=== PATIENT | female | born 1960 | race Caucasian/White ===

== ENCOUNTER 2024-10-31 14:56 | Emergency (ER) | payer MEDICARE, SELFPAY ==
[2024-10-31 14:56] VITALS: BP 137/73; PULSE 53; RESP 18; TEMP 36.6; O2SAT 100
[2024-10-31 14:58] VITALS: BP 137/73; PULSE 53; RESP 20; TEMP 36.7; O2SAT 100
--- NOTE | 2024-10-31 15:00 | PC.NURSE ---
PATIENT AMBULATED TO THE BATHROOM FOR URINE SAMPLE. AMBULATED WITHOUT DIFFICULTY. PATIENT REPORTS THAT THE ZOFRAN GIVEN TO HER BY EMS IS HELPING
--- NOTE | 2024-10-31 15:11 | PC.NURSE ---
DR BONILLA AT THE BEDSIDE
--- NOTE | 2024-10-31 15:16 | ED_ITS ---
HPI - General Adult General Chief complaint: Abdominal Pain Stated complaint: Abdominal Pain Time Seen by Provider: 10/31/24 15:02 History of Present Illness HPI narrative: Tonya is a 63F with a PMH of afib that presented to the ED with abdominal pain and cramping. It started 1.5 hours ago. She had several episodes of abdominal cramping and watery diarrhea and dry heaving. No CP or dyspnea. Related Data Home Medications ?Medication ?Instructions ?Recorded ?Confirmed ?Last Taken ?Type metoprolol tartrate 50 mg tablet 50 mg PO BID 10/31/24 10/31/24 Unknown History (Lopressor) Allergies Allergy/AdvReac Type Severity Reaction Status Date / Time Penicillins Allergy Intermediate Rash Verified 10/31/24 14:58 Review of Systems 2 Review of Systems: All systems reviewed & are unremarkable except as noted in HPI and below Exam 2 Const: General: cooperative, healthy appearing, comfortable, no acute distress, well developed, alert, awake and Physically active O rientation/consciousness: oriented to person, oriented to place and oriented to time HENMT: Head: normal to inspection, normocephalic and atraumatic Ears: h earing grossly normal bilaterally and external ears normal Face/Nose/Sinus: N ormal external nose present Eyes: General: appearance normal, both eyes and all related structures P eriorbital: periorbital findings normal Sclera: sclerae normal Pupils: E qual, round and reactive pupils present Neck: Neck: normal visual inspection Chest: Chest palpation & inspection: normal inspection of the chest Resp: Effort & Inspection: normal respiratory effort, able to speak in complete sentences and no respiratory distress Auscultation: clear to auscultation bilaterally Cardio: Jugular venous distension: no JVD Rate: regular rate Rhythm: r egular rhythm GI: Inspection: normal to inspection GI Palp: Yes Soft to palpation A uscultation: normal bowel sounds Skin: General skin exam: normal color and no rashes or lesions noted Neuro: General: oriented to person, oriented to place and oriented to time Cranial nerves: Yes Equal, round and reactive pupils present Extrem: General: normal to inspection Course Course Emergency Course: Labs largely unremarkable. Symptoms improved with fluids and dicyclomine as well as the zofran she was given en route. Vital Signs Vital signs: Vital Signs Temperature 97.9 F 10/31/24 14:56 Pulse Rate 53 L 10/31/24 14:56 Respiratory Rate 18 10/31/24 14:56 Blood Pressure 137/73 10/31/24 14:56 Pulse Oximetry 100 10/31/24 14:56 Oxygen Delivery Room Air 10/31/24 14:56 Temperature 98.0 F 10/31/24 14:58 Pulse Rate 53 L 10/31/24 14:58 Respiratory Rate 20 10/31/24 14:58 Blood Pressure 137/73 10/31/24 14:58 Pulse Oximetry 100 10/31/24 14:58 Oxygen Delivery Room Air 10/31/24 14:56 Medical Decision Making Vital Signs Vital Signs: Vital Signs Temperature 97.9 F 10/31/24 14:56 Pulse Rate 53 L 10/31/24 14:56 Respiratory Rate 18 10/31/24 14:56 Blood Pressure 137/73 10/31/24 14:56 Pulse Oximetry 100 10/31/24 14:56 Oxygen Delivery Room Air 10/31/24 14:56 Temperature 98.0 F 10/31/24 14:58 Pulse Rate 53 L 10/31/24 14:58 Respiratory Rate 20 10/31/24 14:58 Blood Pressure 137/73 10/31/24 14:58 Pulse Oximetry 10/31/24 14:58 Oxygen Delivery Room Air 10/31/24 14:56 Lab Data 10/31/24 15:13 10/31/24 15:13 Labs: Lab Results 10/31/24 10/31/24 Range/Units 15:13 15:58 WBC 9.1 (4.8-10.8) K/mm3 RBC 3.94 L (4.20-5.40) M/mm3 Hgb 12.0 (11.7-13.8) g/dL Hct 37.1 (35.0-42.0) % MCV 94.2 (78.0-102.0) fL MCH 30.5 (27.0-31.0) pg MCHC 32.3 (32-36) g/dL RDW 13.4 (11.6-14.4) % Plt Count 242 (150-420) K/mm3 MPV 10.9 (9.2-11.8) fl Immature Gran % (Auto) 0.3 H (0.0-0.0) % Neut % (Auto) 80.4 H (50.0-70.0) % Lymph % (Auto) 11.7 L (18.0-42.0) % [place] % (Auto) 6.0 (2.0-11.0) % Eos % (Auto) 1.0 (1.0-6.0) % Baso % (Auto) 0.6 (0.0-1.0) % Lymph # (Auto) 1.06 L (1.10-4.50) K/mm3 [place] # (Auto) 0.54 (0.10-0.90) K/mm3 Eos # (Auto) 0.09 (0.02-0.50) K/mm3 Baso # (Auto) 0.05 (0.00-0.10) K/mm3 Abs Immat Gran (auto) 0.03 H (0.00-0.00) K/mm3 Absolute Neuts (auto) 7.28 H (1.70-7.20) K/mm3 Absolute Nucleated RBC 0.00 (0.00-0.00) K/mm3 Nucleated RBC % 0.0 (0-0.0) % PT 14.6 H (9.50-12.1) Seconds INR 1.4 Sodium 143 (136-145) mmol/L Potassium 4.2 (3.5-5.1) mmol/L Chloride 104 (98-108) mmol/L Carbon Dioxide 29 (21-32) mmol/L Anion Gap 10 (4-12) mmol/L BUN 11 (7-18) mg/dL Creatinine 0.77 (0.55-1.02) mg/dL Estim Creat Clear Calc 59 ml/min Estimated GFR > 60 (59 - ) Glucose 110 H (70-99) mg/dL Calculated Osmolality 296 H (285-295) mOsm/kg Lactic Acid 1.0 (0.4-2.0) mmol/L Calcium 9.3 (8.5-10.1) mg/dL Total Bilirubin 0.6 (0.00-1.00) mg/dL AST 19 (15-37) U/L ALT 25 (14-59) U/L Alkaline Phosphatase 60 (46-116) U/L C-Reactive Protein < 0.5 (0.0-0.9) mg/dL Total Protein 6.9 (6.4-8.2) g/dL Albumin 3.9 (3.4-5.0) g/dL Lipase 49 (16-77) U/L Urine Color Dark yellow (Yellow) Urine Appearance Cloudy A (Clear) Urine pH 7.5 (5.0-8.0) Ur Specific [place] 1.015 (1.010-1.020) Urine Protein Trace H (Negative) Urine Glucose (UA) Negative (Negative) Urine Ketones Trace H (Negative) Ur Blood (Man) 1+ H (Negative) Urine Nitrate Negative (Negative) Urine Bilirubin 1+ H (Negative) Urine Urobilinogen 1.0 (0.2-1.0) mg/dL Leukocyte Esterase Rfl Trace H (Negative) YONATHAN/UL Urine RBC 3-5 H (0-2) /hpf Urine WBC 0-3 (0-3) /hpf Ur Squamous Epith Cells Moderate H (Few) /hpf Amorphous Sediment Moderate H (None) Urine Bacteria 4+ H (None) /hpf Urine Mucus Moderate H /lpf C. difficile (PCR) Negative (NEGATIVE) Discharge Plan Discharge Clinical Impression: Gastroenteritis Patient Disposition: Home, Self-Care Condition: Stable Instructions: Acute Nausea and Vomiting (ED) Patient Language: Romansh Prescriptions: New dicyclomine 20 mg tablet 20 mg PO BID PRN (Reason: abdominal pain) Qty: 20 0RF ondansetron 4 mg tablet,disintegrating 4 mg PO Q8H PRN (Reason: nausea and vomiting) Qty: 20 0RF diphenoxylate-atropine [Lomotil] 2.5-0.025 mg tablet 1 tablet PO TID Qty: 20 0RF ondansetron HCl 4 mg tablet 4 mg PO Q8H Qty: 20 0RF dicyclomine 20 mg tablet 20 mg PO BID Qty: 20 0RF diphenoxylate-atropine [Lomotil] 2.5-0.025 mg tablet 1 tablet PO TID Qty: 20 0RF No Action metoprolol tartrate [Lopressor] 50 mg tablet 50 mg PO BID Follow-up/Referrals: UNKNOWN,DOCTOR [Primary Care Provider] -
[2024-10-31] MEDS: DICYCLOMINE HCL INJ 20 MG/2 ML VIAL IM (15:30)
[2024-10-31] MEDS: SODIUM CHLORIDE 0.9% IV 1,000 ML 999 ML IV CONT (15:30)
[2024-10-31 15:35] LABS: Add Urine Microscopic? YES; Bilirubin Urine 1+ (Negative); Blood Urine 1+ (Negative); Color Urine Dark Yellow (Yellow); Glucose Urine UA Negative (Negative); Ketones Urine Trace (Negative); Leukocyte Esterase Ur Trace LEU/UL (Negative); Nitrate Urine Negative (Negative); Protein Urine Trace (Negative); Specific Grav Ur 1.015 (1.010-1.020); pH Urine 7.5 (5.0-8.0)
[2024-10-31 15:41] LABS: Basophils Absolute Auto 0.05 K/mm3 (0.00-0.10); Basophils Percent Auto 0.6 % (0.0-1.0); Eosinophils Absolute Auto 0.09 K/mm3 (0.02-0.50); Hematocrit 37.1 % (35.0-42.0); Immature Granulocyte Absolute 0.03 K/mm3 (0.00-0.00); Immature Granulocyte Percent A 0.3 % (0.0-0.0); Lymphocytes Absolute Auto 1.06 K/mm3 (1.10-4.50); Lymphocytes Percent Auto 11.7 % (18.0-42.0); Mean Corpuscular HGB Conc 32.3 g/dL (32-36); Mean Corpuscular Hemoglobin 30.5 pg (27.0-31.0); Mean Corpuscular Volume 94.2 fL (78.0-102.0); Mean Platelet Volume 10.9 fl (9.2-11.8); Monocytes Absolute Auto 0.54 K/mm3 (0.10-0.90); Neutrophils Absolute Auto 7.28 K/mm3 (1.70-7.20); Neutrophils Percent Auto 80.4 % (50.0-70.0); Platelet Count Result 242 K/mm3 (150-420); Red Blood Count 3.94 M/mm3 (4.20-5.40); Red Cell Distribution Width 13.4 % (11.6-14.4); White Blood Count 9.1 K/mm3 (4.8-10.8)
[2024-10-31 15:47] LABS: Appearance Urine Cloudy (Clear); Squamous Epithelial Cell Urine Moderate /hpf (Few); WBC Urine 0-3 /hpf (0-3)
[2024-10-31 15:48] LABS: Amorphous Sediment Urine Moderate; Bacteria Urine 4+ /hpf; INR 1.4; Mucus Urine Moderate /lpf; Prothrombin Time 14.6 Seconds (9.50-12.1)
[2024-10-31 15:50] LABS: Alanine Aminotransferase 25 U/L (14-59); Albumin Level 3.9 g/dL (3.4-5.0); Alkaline Phosphatase 60 U/L (46-116); Anion Gap 10 mmol/L (4-12); Aspartate Amino Transferase 19 U/L (15-37); Bilirubin,Total 0.6 mg/dL (0.00-1.00); Blood Urea Nitrogen 11 mg/dL (7-18); Calcium 9.3 mg/dL (8.5-10.1); Carbon Dioxide 29 mmol/L (21-32); Chloride 104 mmol/L (98-108); Estimated CRCL calculation 59 ml/min; Estimated Glomerular Filt Rate > 60; Glucose 110 mg/dL (70-99); Lipase 49 U/L (16-77); Osmolality Calculated 296 mOsm/kg (285-295); Potassium 4.2 mmol/L (3.5-5.1); Sodium 143 mmol/L (136-145); Total Protein 6.9 g/dL (6.4-8.2)
[2024-10-31 15:51] LABS: CRP < 0.5 mg/dL (0.0-0.9)
--- NOTE | 2024-10-31 15:58 | PC.NURSE ---
STOOL SAMPLE TAKEN TO LAB BY KRISTINA WAGNER
--- NOTE | 2024-10-31 16:39 | PC.NURSE ---
PATIENT REPORTS THAT HER PAIN IS GETTING BETTER. UPDATED PATIENT THAT LAB WORK WAS ALL BACK MINUS THE STOOL SAMPLE RESULTS. PATIENT AND DAUGHTER VERBALIZED UNDERSTANDING
[2024-10-31 17:26] LABS: Toxigenic C. Diff NEGATIVE (NEGATIVE)
[2024-10-31 17:40] VITALS: BP 141/75; PULSE 61; RESP 18; TEMP 36.6; O2SAT 99
--- NOTE | 2024-11-04 14:51 | PC.NURSE ---
FINAL SHIGA TOXINS RFLX ECOLI RESULTS: NOT DETECTED FINAL CAMPYLOBACTER EIA RESULTS: NOT DETECTED SALMONELLA/SHIGELLA CULTURE IS STILL PENDING.
--- NOTE | 2024-11-05 13:06 | PC.NURSE ---
FINAL STOOL CULTURE REPORT; SHIGA TOXINS RFLX ECOLI- NOT DETECTED SALMONELLA/SHIGELLA CULTURE- NOT DETECTED CAMPYLOBACTER EIA- NOT DETECTED.
--- OUTSIDE RECORDS SUMMARY | 2024-11-07 06:58 | XMS_ITS ---
Author Organization [facility] Address [address] [id number] Care Team Providers Care Acreage Reporter Name Role Phone SONG HERRERA [phone] Allergies Allergen (clinical drug ingredient) Drug/Non Drug Allergy documented on EMR Reaction Allergy Type Onset Date Status penicillamine Penicillamine Unknown Drug Allergy Active Results Component Value Reference Range Notes THINPREP PAP WITH GEAR NICKER Reviewed date:12/29/2023 12:02:12 PM Interpretation:Negative Performing Lab:[facility], [address] [place] [address], [place], [address] Notes/Report: NOTE: This high risk HPV mRNA assay detects fourteen high-risk HPV types (16, 18, 31, 33, 35, 39, 45, 51, 52, 56, 58, 59, 66, 68) without differentiation. This specimen was reviewed by a Driver Material Handler and/or Pathologist (as indicated in this report) after evaluation using the Thinprep Imaging System. LAST MENSTRUAL PERIOD NOT GIVEN SPECIMEN SOURCE Screening Pap - Imaged, Cervix STATEMENT OF ADEQUACY Satisfactory for e valuation Transformation zone component present INTERPRETATION/RESULT Negative for Intra epithelial Lesion or Malignancy (NIL). Atrophic cell pattern. DISTRICT REPRESENTATIVE MILTON WILLOUGHBY C T ON 12/26/2023 AT 12:56 PM HIGH RISK HPV HPV mRNA E6/E7: No H PV mRNA Detected REASON FOR VISIT Annual + discuss dexa Medications Medication SIG (Take, Route, Frequency, Duration) Notes Start Date End Date Status Metoprolol Succinate 25 MG 1 capsule Ora lly Once a day for 30 day(s) Active Turmeric 500 MG Orally Acti ve Calcium 500 MG 1 tablet with meals Orally Twice a day for 30 day(s) Active Juice Plus Fibre - Orally A ctive Vitamin D 50 MCG (1999) 1 tablet Oral ly Once a day for 30 day(s) Active Baby Aspirin Active Zinc 50 MG 1 tablet Orally Once a day for 30 day(s) Active Social History Tobacco Use: Social History Observation Description Date Details (start date - stop date) Never Smoker NA - NA TOBACCO USE- Question Answer Notes Are you a: never smoker Household Smoke: Question Answer Notes Smoker in Household: yes Vital Signs Height 66 in 12/23/2023 Weight 154.4 lbs 12/23/2023 BMI 24.92 kg/m2 12/23/2023 Encounters Encounter Location Date Provider Diagnosis [facility] [address] [id number] 12/23/2023 SONG HERRERA Routine gynecologica l examination Z01.419 ; Screening for HPV (human papillomavirus) Z11.51 ; Cervical cancer screening Z12.4 and Encounter for screening mammogram for malignant neoplasm of breast Z12.31 Assessments Encounter Date Diagnosis (ICD Code) Assessment Notes Treatment Notes Treatment Clinical Notes Section Notes 12/23/2023 Routine gynecological examination (ICD-10 - Z01.419) Well Visit, Women 50 to 65: Care Instructions material was printed ------ - Tonya is a 63 year old menopausal who presents for routine breast and pelvic exam. She denies any vaginal bleeding. 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 Immunizations:- Received pneumonia and flu vaccines.- Plans to receive a shingles shot in January.- History of COVID infection four times. Gynecological History:- Not sexually active for 10 years.- Last Pap smear was unremarkable. Objective: Relevant Diagnostic Test Results:- Bone density test (12/09/2023): Osteopenia with a major osteoporotic fracture risk of 11% and hip fracture risk of 1.8%.- Mammogram (2020): Negative. Physical Examination Findings:- Breast and pelvic exam unremarkable. No vaginal bleeding. No issues noted in the gynecological examination. Assessment/Plan: Menopause Management - Plan: Continue monitoring for any symptoms or complications related to menopause. Osteopenia Treatment and Prevention - Plan: Continue calcium and vitamin D supplementation. - Encourage regular weight-bearing exercise, such as walking. Fall prevention discussed. - No bone density test required this year. Atrial Fibrillation Monitoring - Continue metoprolol as prescribed. - Plan: Monitor for breakthrough episodes and adjust treatment as needed. Autoimmune Urticarial Vasculitis Follow-Up - No further treatment needed at this time. Evaluation of Persistent Cough - Pt to follow up with PCP for further management and consider imaging. - Plan: Monitor for any changes in symptoms. Gynecological Health Assessment - Normal pelvic exam; no issues identified. - Plan: Encourage safe sexual practices if patient becomes sexually active. Preventive Health Measures - Mammogram: Schedule for 2023. - Shingles vaccine: Schedule for January. - Colonoscopy: Schedule for January. - Plan: Continue routine vaccinations, including flu and pneumonia shots. Past Medical History of Shingles - Plan: Monitor for any recurrence or complications. COVID-19 Recovery and Precautions - Plan: Continue following public health guidelines and recommendations. 12/23/2023 Screening for HPV (human papillomavirus) (ICD-10 - Z11.51) 12/23/2023 Cervical cancer screening (ICD-10 - Z12.4) 12/23/2023 Encounter for screening mammogram for malignant neoplasm of breast (ICD-10 - Z12.31) Plan Of Treatment Treatment Notes Assessment Notes Routine gynecological examination Well Visit, Women 50 to 65: Care Instructions material was printed - Tonya is a 63 year old menopausal who presents for routine breast and pelvic exam. She denies any vaginal bleeding. 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 Immunizations:- Received pneumonia and flu vaccines.- Plans to receive a shingles shot in January.- History of COVID infection four times. Gynecological History:- Not sexually active for 10 years.- Last Pap smear was unremarkable. Objective: Relevant Diagnostic Test Results:- Bone density test (12/09/2023): Osteopenia with a major osteoporotic fracture risk of 11% and hip fracture risk of 1.8%.- Mammogram (2020): Negative. Physical Examination Findings:- Breast and pelvic exam unremarkable. No vaginal bleeding. No issues noted in the gynecological examination. Assessment/Plan: Menopause Management - Plan: Continue monitoring for any symptoms or complications related to menopause. Osteopenia Treatment and Prevention - Plan: Continue calcium and vitamin D supplementation. - Encourage regular weight-bearing exercise, such as walking. Fall prevention discussed. - No bone density test required this year. Atrial Fibrillation Monitoring - Continue metoprolol as prescribed. - Plan: Monitor for breakthrough episodes and adjust treatment as needed. Autoimmune Urticarial Vasculitis Follow-Up - No further treatment needed at this time. Evaluation of Persistent Cough - Pt to follow up with PCP for further management and consider imaging. - Plan: Monitor for any changes in symptoms. Gynecological Health Assessment - Normal pelvic exam; no issues identified. - Plan: Encourage safe sexual practices if patient becomes sexually active. Preventive Health Measures - Mammogram: Schedule for 2023. - Shingles vaccine: Schedule for January. - Colonoscopy: Schedule for January. - Plan: Continue routine vaccinations, including flu and pneumonia shots. Past Medical History of Shingles - Plan: Monitor for any recurrence or complications. COVID-19 Recovery and Precautions - Plan: Continue following public health guidelines and recommendations. Pending Test Test Name Order Date MA FFDM SCREEN ANITA 12/23/2023 Next Appt Details Follow Up: 1 Year,prn, Reaso n: Progress Notes * Tonya COSTELLO:1960 (63 yo F)Acc No.[id number]:12/23/2023 Progress Notes Patient:?Tonya Costello Provider:?SONG HERRERA MD :1960???Age:63 Y???Sex:Female D ate:12/23/2023 Address:[address] [place], [place] [id number] Subjective: * Chief Complaints: * ???Annual + discuss dexa * HPI: ???General:? 63y/o ?LMP:PM ?BC: TL ?PCP: [facility] ?C/O: no breast or pelvic pain. pt states she is here to go over dexa results and that she is doing well..df. * Medical History:? 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 control?bilateral tubal ligation.?Menstruation: ?Time since last menstrual period:?menopause ???Other? She has been in menopause since 01/02. Tried HRT but she thought that is causing an increase of her small fibroid and hence stopped it . She has no menopausal symptoms and hence does not want to use HRT..? * OB History:?Total pregnancies?.?NVD?x 3.? * Surgical History:?tubal liga tion coccyx removal ablation 03/2014 * Hospitalization/Major Diagno stic Procedure:?cardiac issues 4-5x's * Family History:?Mother: domenica oro, diagnosed with Hypertension.?Father: , diagnosed with Heart Disease.?brother: , diagnosed with Hypertension.?sister: alive, diagnosed with Heart Disease.? Denies any other family history. * Social History:?TOBACCO USE:?TOBACCO USE-?Are you a:?never smoker ???Miscellaneous:?Marital status: . 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 ?Exercise: denies. ?Smoking: denies. ?Alcohol: social. ?Drugs: denies. ???HOUSEHOLD SMOKING ASSESSMENT:?Household Smoke?Smoker in Household:?yes ?Person(s) Smoking:?Spouse smokes outside ???AUDIT-C:?Audit-C?Points: 1, Interpretation: Negative.? * Medications:?TakingZinc 50 M G Tablet 1 tablet Orally Once a dayBaby Aspirin Metoprolol Succinate 25 MG Capsule ER 24 Hour Sprinkle 1 capsule Orally Once a dayVitamin D 50 MCG (1999) Tablet 1 tablet Orally Once a dayCalcium 500 MG Tablet 1 tablet with meals Orally Twice a dayJuice Plus Fibre - Liquid Orally Turmeric 500 MG Capsule Orally Medication List reviewed and reconciled with the patientTaking Zinc 50 MG Tablet 1 tablet Orally Once a dayTaking Baby Aspirin Taking Metoprolol Succinate 25 MG Capsule ER 24 Hour Sprinkle 1 capsule Orally Once a dayTaking Vitamin D 50 MCG (1999) Tablet 1 tablet Orally Once a dayTaking Calcium 500 MG Tablet 1 tablet with meals Orally Twice a dayTaking Juice Plus Fibre - Liquid Orally Taking Turmeric 500 MG Capsule Orally Medication List reviewed and reconciled with the patient * Allergies:?Penicillamineno[A llergies Verified] Objective: * Vitals:?Ht: 66 in, Wt:154.4 lbs, Weight Change: 1.8 lb, BMI:24.92 Index, BP Systolic:126 mm Hg, BP Diastolic:72 mm Hg, *LMP:pm. * Physical Examination:?GENERAL: General Appearance: well-appearing, no acute distress, alert and oriented. ?NECK: Neck supple, non tender, no lymphadenopathy, no thyroid enlargement. ?BREASTS: General: no masses, tenderness, no skin changes or nipple abnormality, symmetric, No axillary Lymphadenopathy. ?Nipple Abnormality: none, no discharge. ?Skin Change: unremarkable. ?ABDOMEN: General: soft, no masses, non-tender, No rebound tenderness, No guarding of abdomen.. ?GENITOURINARY - FEMALE: ?External genitalia: normal, no lesions. ?Bladder: normal . ?Urethra: normal external meatus. ?Vagina: pink/moist mucosa, no lesions. ?Cervix: normal appearance , no lesions/discharge/bleeding, no cervical motion tenderness. ?Uterus: Nontender, normal size ?Adnexa: no large adnexal masses, nontender ?EXTREMITIES: Lower Extremities: nontender calves B/L, no edema. ?NEURO: Normal gait ?PSYCH: Mood is appropriate. Assessment: * Assessment: 1.?Screening for HPV (human papillomavirus) - Z11.51?2.?Routine gynecological examination - Z01.419?3.?Cervical cancer screening - Z12.4?4.?Encounter for screening mammogram for malignant neoplasm of breast - Z12.31? Plan: * Treatment: 2.?Routine gynecological examination?LAB: THINPREP PAP WITH Su BUTLER 12/29/2023 11:59:43 A M > Negative per Dr. VillatoroThis lab was reviewed by Su Whatley on 12/29/2023 at 12:02 PM RETAIL TIRE SALES MANAGER Notes: Well Visit, Women 50 to 65: Care Instructions material was printed - Tonya is a 63 year old menopausal who presents for routine breast and pelvic exam. She denies any vaginal bleeding. - Persistent cough for over two months with clear phlegm, mainly postprandial. - History of osteopenia. - Atrial fibrillation (AFib) managed with metoprolol since 2013. - Breakthrough episodes of AFib. - Shingles in July 2023. 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 Immunizations: - Received pneumonia and flu vaccines. - Plans to receive a shingles shot in January. - History of COVID infection four times. Gynecological History: - Not sexually active for 10 years. - Last Pap smear was unremarkable. Objective: Relevant Diagnostic Test Results: - Bone density test (12/09/2023): Osteopenia with a major osteoporotic fracture risk of 11% and hipfracture risk of 1.8%. - Mammogram (2020): Negative. Physical Examination Findings: - Breast and pelvic exam unremarkable. No vaginal bleeding. No issues noted in the gynecological examination. Assessment/Plan: Menopause Management - Plan: Continue monitoring for any symptoms or complications related to menopause. Osteopenia Treatment and Prevention - Plan: Continue calcium and vitamin D supplementation. - Encourage regular weight-bearing exercise, such as walking. Fall prevention discussed. - No bone density test required this year. Atrial Fibrillation Monitoring - Continue metoprolol as prescribed. - Plan: Monitor for breakthrough episodes and adjust treatment as needed. Autoimmune Urticarial Vasculitis Follow-Up - No further treatment needed at this time. Evaluation of Persistent Cough - Pt to follow up with PCP for further management and consider imaging. - Plan: Monitor for any changes in symptoms. Gynecological Health Assessment - Normal pelvic exam; no issues identified. - Plan: Encourage safe sexual practices if patient becomes sexually active. Preventive Health Measures - Mammogram: Schedule for 2023. - Shingles vaccine: Schedule for January. - Colonoscopy: Schedule for January. - Plan: Continue routine vaccinations, including flu and pneumonia shots. Past Medical History of Shingles - Plan: Monitor for any recurrence or complications. COVID-19 Recovery and Precautions - Plan: Continue following public health guidelines and recommendations.?? 3.?Cervical cancer screening?LAB: THINPREP PAP WITH Su BUTLER 12/29/2023 11:59:43 A M > Negative per Dr. VillatoroThis lab was reviewed by Su Whatley on 12/29/2023 at 12:02 PM RETAIL TIRE SALES MANAGER 4.?Encounter for screening mammogram for malignant neoplasm of breast?Imaging: MA FFDM SCREEN ANITA * Procedure Codes:?3074F SYST BP LT 130 MM [id number] DIAST BP < 80 MM HG * Preventive Medicine:? ??KIMBERLY SCREENING:?MAMMMOGRAM?Last Screening Date-?11/2022 Normal Mammogram ?PAP SMEAR?Last Screening Date-?07/2021 Pap smear with DNA-normal/negative ?Colonoscopy?date?pt states colonoscopy was done roughly around 01/2020, normal results ?Dexa Scan?Date?12/09/2022 Osteopenia * Disposition & Communication: ?Communication with Patient: Dear Tonya,I am writing to encapsulate the essential elements of our recent consultation and the health management strategy we have outlined for you:- Medication and Supplementation Regimen:a. Continue with your current medication:- Metoprolol for atrial fibrillationb. Maintain your supplementation with:- Calcium- Vitamin D- Exercise and Lifestyle:a. Persist with your new exercise routine, which includes:- Gym workouts- Walking- Fall prevention- Monitoring and Tests:a. Keep an eye on your cough, particularly after meals, and consider a follow-up if it continues.b. Ensure to stay current with your mammogram this year.c. Schedule your colonoscopy for January.d. No bone density test is needed this year based on recent results.e. Your pelvic examination was normal; continue to monitor your gynecological health.Thank you for your commitment to your health. We are glad to support your active lifestyle and supplement regimen. Please do not hesitate to contact us if you have any questions or if your cough persists.Best regards,Dr. Song Herrera MDObstetrics and Gynecology * Follow Up:?1 Year,prn * Images: * [place] TIRE SALES MANAGER Sign off status: Completed true * Provider:?SONG HERRERA MD Date:?11/28 Generated for CorrieTowergate katie/Clif/eTransmitting on:?11/07/2024 06:58 AM RETAIL TIRE SALES MANAGER History and Physical Notes * HPI (History of Present Illness) Category Sub-Category Detail Notes Category Not es General 63y/o LMP:PM BC: TL PCP: [facility] C/O: no breast or pelvic pain. pt states she is here to go over dexa results and that she is doing well..df Physical Examination Category Sub-Category Detail Notes Section Note s GENERAL: General Appearance: well-appearing, no acute distress, alert and oriented. NECK: Neck supple, non tender, no lymphadenopathy, no thyroid enlargement. BREASTS: General: no masses, tenderness, no skin changes or nipple abnormality, symmetric, No axillary Lymphadenopathy. Nipple Abnormality: none, no discharge. Skin Change: unremarkable. ABDOMEN: General: soft, no masses, non-tender, No rebound tenderness, No guarding of abdomen.. GENITOURINARY - FEMALE: External genitalia: normal, no lesions. Bladder: normal . Urethra: normal external meatus. Vagina: pink/moist mucosa, no lesions. Cervix: normal appearance , no lesions/discharge/bleeding, no cervical motion tenderness. Uterus: Nontender, normal size Adnexa: no large adnexal masses, nontender EXTREMITIES: Lower Extremities: nontender calves B/L, no edema. NEURO: Normal gait PSYCH: Mood is appropriate
--- OUTSIDE RECORDS SUMMARY | 2024-11-07 06:58 | XMS_ITS | Summary of Care ---
Author Organization [facility] Address [address] [place] [address] Care Team Providers Care Second Mate Name Role Phone Qian Mathur MD Primary Care Provider [phone] Reason for Visit * Radiology Services (Routine) - Closed Specialty Diagnoses / Procedures Referred By Contac t Referred To Contact Radiology-Diagnostic Radiology / Radiology Diagnoses Osteoporosis screening Procedures DEXA SCAN AXIAL SKELETON DEXA BONE DENSITY AXIAL SKELETON Marissa Herrera MD [facility] [facility] [address] [address] Referral ID Status Reason Start Date Expiration Date Visits Re quested Visits Authorized [id number] Closed 11/21/2022 05/21/2024 1 1 Encounter Details Date Type Department Care Team Description 12/10/2023 10:25 AM PRINCIPAL RESEARCH ECONOMIST - 12/10/2023 11:59 PM [facility] Hospital Encounter [facility] [address] [place] [address] Marissa Herrera MD [address] [facility], [facility] [address] [place] [address] Discharge Disposition: Home or Self Care Allergies Active Allergy Reactions Criticality Noted Date Comments Penicillins RASH Medium 11/11/2007 documented as of this encounter (statuses as of 2023) Medications Medication Sig Dispensed Refills Start Date End Date Status aspirin (ECOTRIN) 81 MG EC tablet Take 81 mg by mouth daily. 0 Active metoPROLOL succinate (Toprol XL) 25 MG 24 hr tablet Take 1 tablet by mouth daily. 90 tablet 3 06/26/2023 Active documented as of this encounter (statuses as of 2023) Active Problems Problem Noted Date Diagnosed Date Dyspnea on exertion 03/20/2023 Paroxysmal atrial fibrillation (CMD) 03/18/2023 S/P ablation of atrial fibrillation 03/18/2023 Overview: afib ablation 2014 (Chet) Palpitations 03/18/2023 STAR (obstructive sleep apnea) 03/18/2023 documented as of this encounter (statuses as of 2023) Social History Tobacco Use Types Packs/Day Years Used Date Smoking Tobacco: Never Smokeless Tobacco: Never Alcohol Use Standard Drinks/Week Comments Yes 0 (1 standard drink = 0.6 oz pur e alcohol) Inadequate Housing Answer Date Recorded Social Determinants: Housing (Overall Score Help er) 0 06/25/2019 Sex and Gender Information Value Date Recorded Sex Assigned at Not on file Gender Identity Not on file Sexual Orientation Not on file Job Start Date Occupation Industry Not on file Not on file Not on file documented as of this encounter Plan of Treatment Health Maintenance Due Date Last Done Comments Depression Screening 1970 CT Colonography 2003 Cologuard 2003 Colonoscopy 2003 Colorectal Cancer Screen- 2003 Fecal Occult Blood 2003 Sigmoidoscopy 2003 Shingles Vaccine (1 of 2) 2008 Hepatitis C Screening 2009 DTaP/Tdap/Td Vaccine (2 - Td or Tdap) 02/25/2021 02/25/2011 COVID-19 Vaccine (3 - season) 2023 10/08/2021, 01/25/2021 Traditional Medicare- Medicare Wellness Visit 10/27/2023 Breast Cancer Screening 12/09/2024 12/09/19, 11/08/2021, 04/21/2020, Additional history exists Hepatitis B Vaccine (For Physician/APC Discussion) Completed 10/15/2011, 03/29/2011, 02/25/2011 Influenza Vaccine Completed 08/04/2023, , 08/09/2021, Additional history exists Pneumococcal Vaccine 65+ Completed 08/04/2023 Osteoporosis Screening Completed 12/10/2023, 2019 HPV Vaccine Aged Out No longer eligi ble based on patient's age to complete this topic Meningococcal Vaccine Aged Out No william rebeca eligible based on patient's age to complete this topic documented as of this encounter Procedures Procedure Name Priority Date/Time Associated Diagnosis Comments BD DEXA AXIAL SKELETON Routine 12/10/2023 10:40 AM PRINCIPAL RESEARCH ECONOMIST Osteoporosis screening documented in this encounter Results * DEXA SCAN AXIAL SKELETON (12/10/2023 10:40 AM PRINCIPAL RESEARCH ECONOMIST) Anatomical Region Laterality Modality Bone Density Dual-energy X-ra y Absorptiometry 12/10/2023 11:1 4 AM PRINCIPAL RESEARCH ECONOMIST Impressions 12/10/2023 11:15 AM PRINCIPAL RESEARCH ECONOMIST Bone mineral density is in the osteopenia category. See above. Fracture risk estimated using the FRAX calculator : The estimated 10-year risk for a major osteoporotic fracture is 11% and a hip fracture is 1.8%. Classification of patient's bone density based on current World Health Organization criteria: * Normal: A value for bone mineral density (BMD) within 1.0 standard deviation (SD) of a young adult reference mean. * Osteopenia (low bone mass): BMD between 1.0 SD to 2.5 SD below the young adult mean. * Osteoporosis: BMD greater than or equal to 2.5 SD below young adult mean. Severe osteoporosis (established): BMD greater than 2.5 SD below adult mean in the presence of one or more fragility fractures. Electronically Signed by: DEVI BROOKS M.D. Signed on: 12/10/2023 11:15 AM Workstation ID: [id number] Narrative 12/10/2023 11:15 AM PRINCIPAL RESEARCH ECONOMIST EXAM: BD DEXA AXIAL SKELETON CLINICAL INDICATION: 4 year follow up. Postmenopausal female osteopenia COMPARISON: 04/21/2020 This examination was performed on a Hologic Densitometer LUMBAR SPINE ??L1-L4 Bone mineral density: 0.797 T-score: -2.3 Percent young adult: 76 Z-score: -0.5 % Age matched: 89 LEFT HIP Bone mineral density total: 0.860 T-score: -0.7 % Young adult: 91 Z-score: 1.6 % Age matched: 89 FEMORAL NECK Bone mineral density: 0.609 T-score: -2.2 % Young adult: 70 Z-score: -0.7 % Age matched: 87 FINDINGS: Bone mineral density is in the osteopenia category. When compared to the most recent study of 04/21/2020 there has been a statistically significant decrease in bone mineral density of the lumbar spine of 6.8% and an increase in bone mineral density of the total hip of 2.5%. At this facility the least significant change in BMD with a 95% confidence is ??0.675943 gm/cm2 at the total hip, 0.257996 gm/cm2 at the femoral neck and 0.020855 gm/cm2 at the 1/3 radius. Procedure Note Devi Brooks MD - 12/10/2023 EXAM: BD DEXA AXIAL SKELETON CLINICAL INDICATION: 4 year follow up. Postmenopausal female osteopenia COMPARISON: 04/21/2020 This examination was performed on a Hologic Densitometer LUMBAR SPINE L1-L4 Bone mineral density: 0.797 T-score: -2.3 Percent young adult: 76 Z-score: -0.5 % Age matched: 89 LEFT HIP Bone mineral density total: 0.860 T-score: -0.7 % Young adult: 89 Z-score: 1.6 % Age matched: 108 FEMORAL NECK Bone mineral density: 0.609 T-score: -2.2 % Young adult: 70 Z-score: -0.7 % Age matched: 87 FINDINGS: Bone mineral density is in the osteopenia category. When compared to the most recent study of 04/21/2020 there has been a statistically significant decrease in bone mineral density of the lumbar spine of 6.8% and an increase in bone mineral density of the total hipof 2.5%. At this facility the least significant change in BMD with a 95%confidence is 0.887681 gm/cm2 at the total hip, 0.472600 gm/cm2 at the femoralneck and 0.273437 gm/cm2 at the 1/3 radius. IMPRESSION: Bone mineral density is in the osteopenia category. See above. Fracture risk estimated using the FRAX calculator : The [id number] risk for a major osteoporotic fracture is 11% and a hip fracture is1.8%. Classification of patient's bone density based on current World Health Organization criteria: * Normal: A value for bone mineral density (BMD) within 1.0 standard deviation (SD) of a young adult reference mean. * Osteopenia (low bone mass): BMD between 1.0 SD to 2.5 SD below theyoung adult mean. * Osteoporosis: BMD greater than or equal to 2.5 SD below young adultmean. Severe osteoporosis (established): BMD greater than 2.5 SD below adultmean in the presence of one or more fragility fractures. Electronically Signed by: DEVI BROOKS M.D. Signed on: 12/10/2023 11:15 AM Workstation ID: [id number] Marissa Herrera MD IMG DXA PROCEDURES documented in this encounter Care Teams Second Mate Relationship Specialty Start Date End Date Qian Mathur MD [address] [address] PCP - General Internal Medicine 12/09/22 documented as of this encounter
--- OUTSIDE RECORDS SUMMARY | 2024-11-07 06:58 | XMS_ITS | Patient Health Record ---
Author Organization [facility] Address [address] [address] Care Team Providers Care Life Trainer Name Role Phone SONG ROBERTS [phone] Allergies Allergen (clinical drug ingredient) Drug/Non Drug Allergy documented on EMR Reaction Allergy Type Onset Date Status penicillamine Penicillamine Unknown Drug Allergy Active Results Component Value Reference Range Notes THINPREP PAP WITH PRODUCTION STAFF WORKER Reviewed date:12/29/2023 12:02:12 PM Interpretation:Negative Performing Lab:[facility], [address] [place] [address], [id number] Notes/Report: This specimen was reviewed by a Section Leader And Machine Setter and/or Pathologist (as indicated in this report) after evaluation using the Thinprep Imaging System. NOTE: This high risk HPV mRNA assay detects fourteen high-risk HPV types (16, 18, 31, 33, 35, 39, 45, 51, 52, 56, 58, 59, 66, 68) without differentiation. LAST MENSTRUAL PERIOD NOT GIVEN SPECIMEN SOURCE Screening Pap - Imaged, Cervix STATEMENT OF ADEQUACY Satisfactory for e valuation Transformation zone component present INTERPRETATION/RESULT Negative for Intra epithelial Lesion or Malignancy (NIL). Atrophic cell pattern. KEYBOARD INSTRUMENT REPAIRER MILTON WILLOUGHBY C T ON 12/26/2023 AT 12:56 PM HIGH RISK HPV HPV mRNA E6/E7: No H PV mRNA Detected MAMMO SCREENING BILATERAL W YASMIN - ([id number]) Reviewed date:01/09/2024 09:48:13 AM Interpretation:Normal Performing Lab: Notes/Report: #[id number] - MAMMO SCREENING BILATERAL W YASMIN BILATERAL DIGITAL SCREENING MAMMOGRAM 3D/2D WITH CAD: 01/09/2024 CLINICAL HISTORY:Routine annual screening mammogram - tomosynthesis. COMPARISON: Comparison is made to exams dated: 12/09/2022 mammogram, 11/08/2021 mammogram, 04/21/2020 mammogram, 12/18/2016 mammogram, and 11/17/2015 mammogram - [facility]. BREAST COMPOSITION: There are scattered fibroglandular elements (ACR Breast Composition Category B) in both breasts. [employer] Breast Composition Categories A - The breast tissue is predominantly fatty. B - There are scattered fibroglandular elements in the breast tissue. C - The breast tissue is heterogeneously dense. This may lower the sensitivity of mammography. D - The breast tissue is extremely dense, which lowers the sensitivity of mammography. FINDINGS: No significant masses, calcifications, or other findings are seen in either breast. Current study was also evaluated with a Computer Aided Detection (CAD) system. Digital Breast Tomosynthesis (DBT) images were obtained and used to assist in the interpretation of this examination. There has been no significant interval change. IMPRESSION: MAMMOGRAPHY NEGATIVE There is no mammographic evidence of malignancy. A 1 year screening mammogram is recommended. MAMMOGRAPHY BI-RADS: 1 NEGATIVE Electronically Signed by: Shelia gong/sadi:01/09/2024 09:19:38 letter sent: Normal Single Exam Footer added by the Eterniam Interface Engine to reflect report status ----- FINAL ----- #[id number] - MAMM O SCREENING BILATERAL W YASMIN BILATERAL DIGITAL SC REENING MAMMOGRAM 3D/2D WITH CAD: 01/09/2024 CLINICAL HISTORY:Rou dewayne annual screening mammogram - tomosynthesis. COMPARISON: Comparison is made t o exams dated: 12/09/2022 mammogram, 11/08/2021 mammogram, 04/21/2020 mammogram, 12/18/2016 mammogram, and 11/17/2015 mammogram - [facility]. BREAST COMPOSITION: There are scattered fibroglandular elements (ACR Breast Composition Category B) in both breasts. [employer] Breast Composition Categories A - The breast tissu e is predominantly fatty. B - There are scatte red fibroglandular elements in the breast tissue. C - The breast tissu e is heterogeneously dense. This may lower the sensitivity of mammography. D - The breast tissu e is extremely dense, which lowers the sensitivity of mammography. FINDINGS: No significant taylor s, calcifications, or other findings are seen in either breast. Current study was al so evaluated with a Computer Aided Detection (CAD) system. Digital Breast Tomosynthesis (DBT) images were obtained and used to assist in the interp retation of this examination. There has been no si gnificant interval change. IMPRESSION: MAMMOGRAPHY NEGATIVE There is no mammogra phic evidence of malignancy. A 1 year screening mammogram is recommended. MAMMOGRAPHY BI-RADS: 1 NEGATIVE Electronically Lexi d by: Shelia gong/sadi:01/09/2024 09:19:38 letter sent: Normal Single Exam Footer added by the Eterniam Interface Engine to reflect report status ----- FINAL ----- Reason For Referral No Information Medications Medication SIG (Take, Route, Frequency, Duration) Notes Start Date End Date Status Baby Aspirin Active Metoprolol Succinate 25 MG 1 capsule Ora lly Once a day for 30 day(s) Active Zinc 50 MG 1 tablet Orally Once a day for 30 day(s) Active Turmeric 500 MG Orally Acti ve Calcium 500 MG 1 tablet with meals Orally Twice a day for 30 day(s) Active Juice Plus Fibre - Orally A ctive Vitamin D 50 MCG (1999 [place]) 1 tablet Oral ly Once a day for 30 day(s) Active Immunizations Vaccine Route Administration Date Status Comme nts FLU VACCINE NO PRESERV 3 & > Unknown 01/01/2019 Refused Social History Tobacco Use: Social History Observation Description Date Details (start date - stop date) Never Smoker NA - NA TOBACCO USE- Question Answer Notes Are you a: never smoker Household Smoke: Question Answer Notes Smoker in Household: yes Vital Signs Height 66 in 12/23/2023 Weight 154.4 lbs 12/23/2023 BMI 24.92 kg/m2 12/23/2023 Encounters Encounter Location Date Provider Diagnosis [facility] [address] [address] 12/23/2023 SONG ROBERTS Routine gynecologica l examination Z01.419 ; Screening for HPV (human papillomavirus) Z11.51 ; Cervical cancer screening Z12.4 and Encounter for screening mammogram for malignant neoplasm of breast Z12.31 Assessments Encounter Date Diagnosis (ICD Code) Assessment Notes Treatment Notes Treatment Clinical Notes Section Notes 12/23/2023 Screening for HPV (human papillomavirus) (ICD-10 - Z11.51) 12/23/2023 Routine gynecological examination (ICD-10 - Z01.419) [...] following public health guidelines and recommendations. 12/23/2023 Cervical cancer screening (ICD-10 - Z12.4) 12/23/2023 Encounter for screening mammogram for malignant neoplasm of breast (ICD-10 - Z12.31) Plan Of Treatment Pending Test Test Name Order Date MA FFDM SCREEN ANITA 12/23/2023 MA FFDM SCREEN ANITA 08/08/2021 MA FFDM SCREEN ANITA 08/21/2022 MA FFDM SCREEN ANITA 04/10/2020 XR DEXA SCAN AXIAL 04/10/2020 XR DEXA SCAN AXIAL 10/03/2014 XR DEXA SCAN AXIAL 01/01/2019 XR DEXA SCAN AXIAL 08/21/2022 Insurance Providers Payer Name Payer Address Payer Phone Subscriber Number Group Number Insured Name Patient Relationship to Insured Coverage Start Date Coverage End Date Medicare Advantage- Blue cross [address] [place] [address] [id number] Tonya Costello Self - patient is the insured 4 Medical (General) History Medical History History ICD Code Atrial fibrillation - 2013 - underwent c ardiac ablation, been well since Stable lung nodule?? - Revie wed imaging from [facility] - CXR from 2013 AND 2014 - scarring at lung apices - Pt states no other issues, not aware of any nodules Osteopenia Surgical History Surgery Date(Month/Year) tubal ligation coccyx removal ablation 03/2014 Hospitalization History Reason Date(Month/Year) cardiac issues 4-5x's
--- OUTSIDE RECORDS SUMMARY | 2024-11-07 06:58 | XMS_ITS | Summary of Care ---
Author Organization [facility] Address [address] [place] [address] Care Team Providers Care Sanding Supervisor Name Role Phone Sona Saenz MD Primary Care Provider [phone] Reason for Visit * Radiology Services (Routine) - Closed Specialty Diagnoses / Procedures Referred By Delmi zee Referred To Contact Radiology-Diagnostic Radiology / Radiology Diagnoses Encounter for screening mammogram for malignant neoplasm of breast Procedures MAMMO SCREENING BILATERAL W YASMIN MAMMO SCREENING BILATERAL W YASMIN SCREENING MAMMOGRAPHY BI 2-VIEW BREAST INC CAD SCREENING DIGITAL BREAST TOMOSYNTHESIS BILATERAL Marissa Herrera MD [address] [facility] [address], [address] [place] [address] Referral ID Status Reason Start Date Expiration Date Visits Re quested Visits Authorized [id number] Closed 12/31/2023 07/02/2025 1 1 Encounter Details Date Type Department Care Team Description 01/09/2024 8:28 AM CDT - 01/09/2024 11:59 PM CDT Hospital Encounter [facility] Mammography [address] [place], [place] [id number] Qian Mathur MD [address] [facility] [address] [place] [address] Marissa Herrera MD [address] [facility] [address], [address] [place], [place] [id number] Discharge Disposition: Home or Self Care Allergies Active Allergy Reactions Criticality Noted Date Comments Penicillins RASH Medium 11/11/2007 documented as of this encounter (statuses as of 01/11/2024) Medications Medication Sig Dispensed Refills Start Date End Date Status aspirin (ECOTRIN) 81 MG EC tablet Take 81 mg by mouth daily. 0 Active metoPROLOL succinate (Toprol XL) 25 MG 24 hr tablet Take 1 tablet by mouth daily. 90 tablet 3 06/26/2023 Active documented as of this encounter (statuses as of 01/11/2024) Active Problems Problem Noted Date Diagnosed Date Dyspnea on exertion 03/20/2023 Paroxysmal atrial fibrillation (CMD) 03/18/2023 S/P ablation of atrial fibrillation 03/18/2023 Overview: afib ablation 2013 (Chet) Palpitations 03/18/2023 STAR (obstructive sleep apnea) 03/18/2023 documented as of this encounter (statuses as of 01/11/2024) Social History Tobacco Use Types Packs/Day Years [...] Medicare Wellness Visit 10/27/2023 Breast Cancer Screening 01/08/2026 01/09/20 24, 12/09/2022, 11/08/2021, Additional history exists Hepatitis B Vaccine (For [...] Procedure Name Priority Date/Time Associated Diagnosis Comments MAMMO SCREENING BILATERAL W YASMIN Routine 01/09/2024 8:41 AM CDT Encounter for screening mammogram for malignant neoplasm of breast documented in this encounter Results * MAMMO SCREENING BILATERAL W YASMIN (01/09/2024 8:41 AM CDT) Anatomical Region Laterality Modality Breast Bilateral Mammography 01/09/2024 8:41 AM CDT Impressions 01/09/2024 9:19 AM CDT MAMMOGRAPHY ??NEGATIVE There is no mammographic evidence of malignancy. A 1 year screening mammogram is recommended. ?? MAMMOGRAPHY BI-RADS: 1 NEGATIVE Electronically Signed by: Shelia Brooks M.D. ? beltran/lidarad:01/09/2024 09:19:38 ?? letter sent: Normal Single Exam Narrative 01/09/2024 9:19 AM CDT #[id number] - MAMMO SCREENING BILATERAL W YASMIN BILATERAL DIGITAL SCREENING MAMMOGRAM 3D/2D WITH CAD: 01/09/2024 CLINICAL HISTORY:Routine annual screening mammogram - tomosynthesis. ?? COMPARISON: Comparison is made to exams dated: 12/09/2022 mammogram, 11/08/2021 mammogram, 04/21/2020 mammogram, 12/18/2016 mammogram, and 11/17/2015 mammogram - [facility]. ?? BREAST COMPOSITION: There are scattered fibroglandular elements (ACR Breast Composition Category B) in both breasts. ?? [employer] Breast Composition Categories ??A - The breast tissue is predominantly fatty. ??B - There are scattered fibroglandular elements in the breast tissue. ??C - The breast tissue is heterogeneously dense. This may lower the sensitivity of mammography. ??D - The breast tissue is extremely dense, which lowers the sensitivity of mammography. FINDINGS: ?? No significant masses, calcifications, or other findings are seen in either breast. ?? Current study was also evaluated with a Computer Aided Detection (CAD) system. Digital Breast Tomosynthesis (DBT) images were obtained and used to assist in the interpretation of this examination. There has been no significant interval change. Procedure Note Shelia Brooks MD - 01/09/2024 #[id number] - MAMMO SCREENING BILATERAL W YASMIN BILATERAL DIGITAL SCREENING MAMMOGRAM 3D/2D WITH CAD: 01/09/2024 CLINICAL HISTORY:Routine annual screening mammogram - tomosynthesis. COMPARISON: Comparison is made to exams dated: 12/09/2022 mammogram, 11/08/2021mammogram, 04/21/2020 mammogram, 12/18/2016 mammogram, and 11/17/2015mammogram - [facility]. BREAST COMPOSITION: There are scattered fibroglandular elements (ACRBreast Composition Category B) in both breasts. [employer] Breast Composition Categories A - The breast tissue is predominantly fatty. B - There are scattered fibroglandular elements in the breast tissue. C - The breast tissue is heterogeneously dense. This may lower thesensitivity of mammography. D - The breast tissue is extremely dense, which lowers the sensitivityof mammography. FINDINGS: No significant masses, calcifications, or other findings are seen ineither breast. Current study was also evaluated with a Computer Aided Detection (CAD)system. Digital Breast Tomosynthesis (DBT) images were obtained and usedto assist in the interpretation of this examination. There has been no significant interval change. IMPRESSION: MAMMOGRAPHY NEGATIVE There is no mammographic evidence of malignancy. A 1 year screeningmammogram is recommended. MAMMOGRAPHY BI-RADS: 1 NEGATIVE Electronically Signed by: Shelia gong/sadi:01/09/2024 09:19:38 letter sent: Normal Single Exam Marissa Herrera MD IMG BI PROCEDURES documented in this encounter Visit Diagnoses Diagnosis Encounter for screening mammogram for malignant neoplasm of breast Other screening mammogram documented in this encounter Care Teams Sanding Supervisor Relationship Specialty Start Date End Date Sona Saenz MD [address] [address] PCP - General Internal Medicine 01/09/24 documented as of this encounter
--- OUTSIDE RECORDS SUMMARY | 2024-11-07 06:59 | XMS_ITS | Encounter Summary ---
Author Organization [facility] Address [address] [place] [address] Care Team Providers Care Pipe Fitter Ammonia Name Role Phone Qian Mathur MD Primary Care Provider [phone] Reason for Visit * Reason Comments Cough X 3 weeks Encounter Details Date Type Department Care Team (Late st Contact Info) Description 11/10/2023 10:00 AM ENERGY ENGINEER Office Visit Internal Medicine - [facility] [address] [address] [place] [address] Rom Du APRN [address] [facility] [address] [place], [place] [id number] Bilateral otitis media with effusion (Primary Dx); Acute cough; Chest tightness; Urticarial vasculitis Social History Tobacco Use Types Packs/Day Years Used Date Smoking Tobacco: Former Cigarettes Smokeless Tobacco: Never Tobacco Cessation:Counseling Given: Not Answered Comments:quit 26 yrs ago Alcohol Use Standard Drinks/Week Comments Yes 0 (1 standard drink = 0.6 oz pur e alcohol) socially, 7 drinks/week PHQ-2 Answer Date Recorded PHQ-2 SCORE 0 12/17/2021 Sex and Gender Information Value Date Recorded Sex Assigned at Not on file Gender Identity Female 07/03/2021 5:51 PM CDT Sexual Orientation Not on file documented as of this encounter Last Filed Vital Signs Vital Sign Reading Time Taken Comments Blood Pressure 130/68 11/10/2023 10:05 AM ENERGY ENGINEER Pulse 73 11/10/2023 10:05 AM ENERGY ENGINEER Temperature 36.5 ??C (97.7 ??F) 11/10/2023 10:05 AM C Respiratory Rate - - Oxygen Saturation 99% 11/10/2023 10:05 AM ENERGY ENGINEER Inhaled Oxygen Concentration - - Weight 70.3 kg (155 lb) 11/10/2023 10:05 AM ENERGY ENGINEER Height 167.6 cm (5' 6 ) 11/10/2023 10:05 AM ENERGY ENGINEER Body Mass Index 25.02 11/10/2023 10:05 AM ENERGY ENGINEER documented in this encounter Functional Status Functional Status Response Date of Assess ment Hearing Problems? No 12/17/2021 Vision Problems? No 12/17/2021 Difficulty walking? No 12/17/2021 Difficulty dressing or bathing? No 12/17/2021 Problems with daily activities? No 12/17/2021 Cognitive Status Response Date of Assessm ent Memory Problems? No 12/17/2021 documented as of this encounter Patient Instructions * Patient Instructions* Rom Du APRN - 11/10/2023 10:00 AM ENERGY ENGINEER Jorge Luis Castaneda presented for an appointment today to evaluate your cough/cold symptoms. Typically we wait about 7 days to see if symptoms resolve on their own. We will advise patients to use over the counter mucinex and flonase nasal spray to help with congestion. Using a humidifier or an over the counter saline nasal spray can also help. Based on your symptoms and your exam today, we would like to prescribe you an oral antibiotic to ensure your symptoms clear up and this does not prolong. Today we have ordered: Start Taking Doxycycline Hyclate 100 MG Oral Tab Take 1 tablet (100 mg total) by mouth 2 (two) times daily. benzonatate 200 MG Oral Cap Take 1 capsule (200 mg total) by mouth 3 (three) times daily as needed for cough. albuterol 108 (90 Base) MCG/ACT Inhalation Aero Soln Inhale 1-2 puffs into the lungs every 6 (six) hours as needed for Wheezing or Shortness of Breath. Please take this medication with food and drink plenty of water to reduce possible GI upset. If your symptoms worsen and or have persistent fevers, please follow up with us as needed and message if you have further questions or concerns. We wish you well and stay safe. GY ENGINEER * Attachments The following attachments cannot be sent through Care Everywhere. * Colds, Adult Self-Care for (Monegasque) * Middle Ear Infection (Otitis Media) in Adults (Monegasque) documented in this encounter Progress Notes * Rom Du APRN - 11/10/2023 10:00 AM CST Subjective: Patient ID: Tonya Costello is a 62 year old female presenting for cough x 3 weeks. On 10/16 developed an acute rash. Both arms, lower back, lower leg, toe blister. Had prominent, expansive lower leg petechiae. No pain, itchiness, fevers at the time. No rash involvement to vagina and perianal areas. Used aloe and lotion. Took benadryl and zyrtec without response. Went to [facility] 10/19. Prescribed prednisone 40mg for 5 days with improvement. Also had intermittent nose bleeding only seen with blowing nose. Notices scabs, blood streaked mucus. No acute liquid blood draining that requires held pressure to nose. Has had covid 4 times. Recent shingles infection 08/09 on her left side. Completed 1 week course of famciclovir. Reports minor scarring and near complete resolution. 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 Referred torheumatology and has an appointment on 11/14/23. Completing a prednisone taper prescribed by dermatology. Cough x 3 weeks that has progressed. Having chest tightness and ribcage pain with heavy coughing. Nosebleeds stopped last week. Sick contacts: None OTC: Old tessalon prescription. History/Other: Past Medical History: Diagnosis Date AF (atrial fibrillation) (HCC) 06/21/2013 Arrhythmia PAF, ablation 03/2014 STAR (obstructive sleep apnea) 01/15/22-PSG AHI-14 Tinnitus x years (had seen ENT) Past Surgical History: Procedure Laterality Date COLONOSCOPY 05/04/15 Diverticulosis. Tattoo at 40 cm unremarkable. 10 mm flat cecal polyp (hp). 18 mm flat ascending adenoma s/p tattoo/piecemeal resection. 3 mm transverse serrated. repeat 3-6 months COLONOSCOPY 11/2015 unremarkable tattoos in ascending and 50 cm, small descending adenoma, diverticulosis. repeat 3 years COLONOSCOPY FLX W/ENDOSCOPIC MUCOSAL RESECTION N/A 05/04/2015 COLONOSCOPY,BIOPSY 08/03/2012 small cecal and ascending colon polps. Also, 13 mm flat polyp at about 40 cm from anus was tattooedwas adenoma. Joaquin-colonic diverticulosis COLONOSCOPY,BIOPSY N/A 05/04/2015 COLONOSCOPY,REMV LESN,SNARE 08/03/2012 COLONOSCOPY,REMV LESN,SNARE N/A 05/04/2015 COLONOSCPY, FLEXIBLE, PROXIMAL TO SPLENIC FLEXURE; W/DIRECTED SUBMUCOSA INJECTION(S), ANY ISUALBPMT48/8/2012 OTHER SURGICAL HISTORY facial plastic surgery REMOVAL OF COCCYX broken coccyx, fall / childbirth/jet ski SIGMOIDOSCOPY,BIOPSY 01/11/2013 3 mm sigmoid polyp was adenoma. No recurrent polyp at tattoo site at 40 cm No family history on file. Social History Tobacco Use Smoking status: Former Years: 10 Types: Cigarettes Smokeless tobacco: Never Tobacco comments: quit 26 yrs ago Vaping Use Vaping Use: Never used Alcohol use: Yes Comment: socially, 7 drinks/week Drug use: No Review of Systems Constitutional: Negative for activity change, appetite change, chills, diaphoresis, fatigue and fever. HENT: Positive for congestion and rhinorrhea. Negative for ear discharge, ear pain, mouth sores, postnasal drip, sinus pressure, sinus pain, sore throat, trouble swallowing and voice change. Eyes: Negative. Respiratory: Positive for cough and chest tightness. Negative for shortness of breath and wheezing. Cardiovascular: Negative for chest pain, palpitations and leg swelling. Gastrointestinal: Negative for abdominal distention, abdominal pain, constipation, diarrhea, nauseaand vomiting. Genitourinary: Negative. Musculoskeletal: Negative. Skin: Positive for rash. Healing skin systemic skin rash. 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 Hematological: Does not bruise/bleed easily. Recent nosebleeds and vasculitis Psychiatric/Behavioral: Negative. Current Outpatient Medications Medication Sig Dispense Refill Doxycycline Hyclate 100 MG Oral Tab Take 1 tablet (100 mg total) by mouth 2 (two) times daily. 14 tablet 0 benzonatate 200 MG Oral Cap Take 1 capsule (200 mg total) by mouth 3 (three) times daily as needed for cough. 30 capsule 0 albuterol 108 (90 Base) MCG/ACT Inhalation Aero Soln Inhale 1-2 puffs into the lungs every 6 (six) hours as needed for Wheezing or Shortness of Breath. 8.5 g 0 predniSONE 2.5 MG Oral Tab Take 1 tablet (2.5 mg total) by mouth daily. 101 tablet 0 gabapentin 600 MG Oral Tab Take 1 tablet (600 mg total) by mouth 3 (three) times daily. 90 tablet 1 gabapentin 300 MG Oral Cap Take one tablet one the first day, then take one tablet twice a day on day 2, then three times daily as needed 30 capsule 2 naproxen 500 MG Oral Tab Take 1 tablet (500 mg total) by mouth 2 (two) times daily with meals. 60 tablet 0 Imiquimod 5 % External Cream Apply to affected area on leg once a day Friday- Friday x 6 weeks. Do not apply on Friday and Friday. 12 each 1 zolpidem 5 MG Oral Tab Take 1 tablet (5 mg total) by mouth daily. 30 tablet 0 triamcinolone acetonide 0.1 % External Cream Apply to rash of back twice daily prn itch. 30 g 0 Nutritional Supplements (JUICE PLUS FIBRE OR) Take by mouth. Cholecalciferol (VITAMIN D) 1000 units Oral Tab Take by mouth. TURMERIC OR Take by mouth. Allergies: Penicillins RASH Objective: 11/10/23 1005 BP: 130/68 Pulse: 73 Temp: 97.7 ??F (36.5 ??C) TempSrc: Temporal SpO2: 99% Weight: 155 lb (70.3 kg) Height: 5' 6 (1.676 m) Wt Readings from Last 6 Encounters: 11/10/23 : 155 lb (70.3 kg) 10/24/23 : 156 lb (70.8 kg) 08/13/23 : 156 lb 12.8 oz (71.1 kg) 08/04/23 : 154 lb 3.2 oz (69.9 kg) 05/30/23 : 156 lb (70.8 kg) 03/26/22 : 150 lb (68 kg) Body mass index is 25.02 kg/m??. Physical Exam Vitals reviewed. Constitutional: General: She is not in acute distress. Appearance: Normal appearance. She is ill-appearing. HENT: Head: Normocephalic and atraumatic. Right Ear: External ear normal. No drainage. A middle ear effusion is present. Tympanic membrane isnot erythematous. Left Ear: External ear normal. No drainage. A middle ear effusion is present. Tympanic membrane is not erythematous. Nose: Nose normal. No congestion or rhinorrhea. Mouth/Throat: Mouth: Mucous membranes are moist. Pharynx: Oropharynx is clear. Eyes: Extraocular Movements: Extraocular movements intact. Conjunctiva/sclera: Conjunctivae normal. Cardiovascular: Rate and Rhythm: Normal rate and regular rhythm. Pulses: Normal pulses. Heart sounds: Normal heart sounds. No murmur heard. Pulmonary: Effort: Pulmonary effort is normal. No accessory muscle usage or respiratory distress. Breath sounds: Normal air entry. Examination of the left-lower field reveals rhonchi. Rhonchi present. No wheezing or rales. Chest: Chest wall: No tenderness. Abdominal: General: Bowel sounds are normal. Palpations: Abdomen is soft. Tenderness: There is no abdominal tenderness. Musculoskeletal: General: Normal range of motion. Cervical back: Normal range of motion. No rigidity or tenderness. Right lower leg: No edema. Left lower leg: No edema. Lymphadenopathy: Cervical: No cervical adenopathy. Skin: General: Skin is warm and dry. Capillary Refill: Capillary refill takes less than 2 seconds. Findings: Erythema and rash present. Comments: Healing erythematous systemic rash. Neurological: General: No focal deficit present. Mental Status: She is alert and oriented to person, place, and time. Mental status is at baseline. Assessment & Plan: Diagnoses and all orders for this visit: Bilateral otitis media with effusion Acute cough Chest tightness Given penicillin allergy, treat with doxycycline for 1 week. Albuterol inhaler and tessalon as needed. May take mucinex, flonase, saline nasal spray, neti pot, and use a home humidifier for supportive care. Orders placed - Doxycycline Hyclate 100 MG Oral Tab; Take 1 tablet (100 mg total) by mouth 2 (two) times daily. - benzonatate 200 MG Oral Cap; Take 1 capsule (200 mg total) by mouth 3 (three) times daily as needed for cough. - albuterol 108 (90 Base) MCG/ACT Inhalation Aero Soln; Inhale 1-2 puffs into the lungs every 6 (six) hours as needed for Wheezing or Shortness of Breath. Urticarial vasculitis Healing. Finishing a prednisone taper from Dermatology. Has a Rheumatology appointment for further evaluation. Meds This Visit: Requested Prescriptions Signed Prescriptions Disp Refills Doxycycline Hyclate 100 MG Oral Tab 14 tablet 0 Sig: Take 1 tablet (100 mg total) by mouth 2 (two) times daily. benzonatate 200 MG Oral Cap 30 capsule 0 Sig: Take 1 capsule (200 mg total) by mouth 3 (three) times daily as needed for cough. albuterol 108 (90 Base) MCG/ACT Inhalation Aero Soln 8.5 g 0 Sig: Inhale 1-2 puffs into the lungs every 6 (six) hours as needed for Wheezing or Shortness of Breath. Imaging & Referrals: None GY ENGINEER documented in this encounter Plan of Treatment Upcoming Encounters Date Type Department Care Team (Late st Contact Info) Description 11/24/2024 1:00 PM ENERGY ENGINEER Procedure Surgical Procedure Visit [phone] Titus Vieyra MD [address] [facility] [address] [place] [address] documented as of this encounter Visit Diagnoses Diagnosis Bilateral otitis media with effusion- Primary Nonsuppurative otitis media, not specified as acute or chronic Acute cough Chest tightness Other chest pain Urticarial vasculitis Hypersensitivity angiitis, unspecified documented in this encounter Additional Health Concerns Assessment Noted Time A fall risk assessment has been complete d for the patient 04/26/2014 7:59 AM CDT documented as of this encounter Care Teams Pipe Fitter Ammonia Relationship Specialty Start Date End Date Qian Mathur MD [address] [facility] [address] [place] [address] PCP - General Internal Medicine 08/13/23 06/06/24 documented as of this encounter
--- OUTSIDE RECORDS SUMMARY | 2024-11-07 06:59 | XMS_ITS | Encounter Summary ---
Author Organization [facility] Address [address] [place] [id number] Care Team Providers Care Big Data Platform Architect Name Role Phone Qian Mathur MD Primary Care Provider [phone] Reason for Visit * Reason Comments Rash Legs, arms, buttocks lower back x weeks, +itching, +tingling x 3 days at night, denies pain, bleeding, no changes, prev tx: prednisone x 5 days with no improvement, no current tx. Pt reports using aloe. Spot Right cheek x 1 day, no sx, no changes, no tx Encounter Details Date Type Department Care Team ([facility] st Contact Info) Description 10/28/2023 11:15 AM PACKAGER OR PACKER AND WEIGHER Office Visit Dermatology - [place] [id number] [place] [address] Jesse Noel, PA-C [address] [facility] [address] [id number] Dermatitis (Primary Dx) Social History Tobacco Use Types Packs/Day Years Used Date Smoking Tobacco: Former Cigarettes Smokeless Tobacco: Never Comments:quit 26 yrs ago Alcohol Use Standard Drinks/Week Comments Yes 0 (1 standard drink = 0.6 oz pur e alcohol) socially, 7 drinks/week PHQ-2 Answer Date Recorded PHQ-2 SCORE 0 12/17/2021 Sex and Gender Information Value Date Recorded Sex Assigned at Not on file Gender Identity Female 07/03/2021 5:51 PM CDT Sexual Orientation Not on file documented as of this encounter Functional Status Functional Status Response Date of Assess ment Hearing Problems? No 12/17/2021 Vision Problems? No 12/17/2021 Difficulty walking? No 12/17/2021 Difficulty dressing or bathing? No 12/17/2021 Problems with daily activities? No 12/17/2021 Cognitive Status Response Date of Assessm ent Memory Problems? No 12/17/2021 documented as of this encounter Patient Instructions * Patient Instructions* Dylon You MA - 10/28/2023 11:15 AM PACKAGER OR PACKER AND WEIGHER Additional diagnosis, treatment and care information can be found at our website [email or web address], [email or web address] and [email or web address]. Uncommon or rare skin disorders can sometimes be researched at rarediseases.info.nih.gov. AGER OR PACKER AND WEIGHER documented in this encounter Progress Notes * Jesse Noel PA-C - 10/28/2023 11:15 AM CSTAddended by: JESSE NOEL on: 10/29/2023 01:59 PM Modules accepted: Orders AGER OR PACKER AND WEIGHER * Dylon You MA - 10/28/2023 11:15 AM CST HPI: Tonya Costello is a 62 year old female Patient presents with: Rash: Legs, arms, buttocks lower back x weeks, +itching, +tingling x 3 days at night, denies pain, bleeding, no changes, prev tx: prednisone x 5 days with no improvement, no current tx. Pt reports using aloe. Spot: Right cheek x 1 day, no sx, no changes, no tx Denies FMHx of AI-CTD or blood clotting. Denies, PRITCHARD, fatigue, CP, SOB, heart palpitations, no stool or urine changes, NV, Abd pain, joint\muscle pain +nose bleeds Current Outpatient Medications Medication Sig Dispense Refill gabapentin 600 MG Oral Tab Take 1 [...] by mouth. TURMERIC OR Take by mouth. REVIEW OF SYSTEMS: GENERAL HEALTH: otherwise feels well SKIN: No other skin concerns EYES: no visual complaints or deficits HEENT: denies nasal congestion, sinus pain or sore throat; hearing loss negative RESPIRATORY: denies shortness of breath, wheezing or cough CARDIOVASCULAR: denies chest pain or CHRISTY; no palpitations GI: denies nausea, vomiting, constipation, diarrhea; no rectal bleeding; no heartburn MUSCULOSKELETAL: no joint complaints upper or lower extremities NEURO: no sensory or motor complaint PHYSICAL EXAM: A&Ox3: Yes Well developed, well nourished female Yes Mood: Pleasant Yes Skin Type: 2 NL Findings NL Findings Head Buttock Scalp Rt arm x Hair Lt arm x Lids/conj Rt leg x Lips/teeth Lt leg x Neck Nails Chest Oral Mucosa Abdomen Lymphnodes Back x Groin Other Physical Exam findings: Faint reticulated pink patches on the b\l upper arms, b\l upper legs, lower left back erythematous reticulated palpable purpura on the b\l lower legs, no ulcerations on exam ASSESSMENT/PLAN: 1. Dermatitis NOS, b\l lower legs - (DiffDx leukocytoclastic vasculitis vs interface dermatitis vs other) the differential Dx was discussed with the patient. This unusual inflammatory condition willbe difficult to assign a diagnosis to at this time as it has not fully developed or because it is non- specific and could represent a number of different conditions. At times, biopsy can be useful to determine a precise diagnosis. Pt elected to Bx today. DWP etiology may be elusive and includes idiopathic, thrombotic dermatosis, auto immune, acute infectious agent, or neoplastic. Reviewed labs ESR\CRP\CMP\CBC\KRISTA\TSH\ wnl, Covid and Strep negative. Would recommend f/u with rheumatology to r\o any underlying AI-CTD Due to nocturnal pruritis and neurologic symptoms would offer steroid taper to alleviate symptoms. Pt elected to proceed with Bx and tx with 2 wk prednisone taper, sent to pharm on file. Skin care reviewed. Questions answered. Risks/benefits/ alternatives discussed with patient. Patient advised on: Dx, Rx Options, Prognosis, Etiology, Realistic expectations Decision Making Complexity: Medium Patient was asked about new and changing moles: No Patient received a complete physical skin examination: No Patient was counseled to perform a monthly self skin examination: No Patient indicates understanding of the verbal and/or written patient instructions that were given today. 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 Anesthesia was introduced into the tissue without complication. A biopsy was obtained using a 3 mmTrochar Punch. The biopsy extended through the epidermal, dermal, and subcutaneous layers of the skin, exposing fatty tissue. Hemostasis was obtained using ligation / electrocautery. The dermal and ep idermal margins were approximated with two 4-0 Ethilon sutures. The site was cleansed with normal saline; Petroleum jelly and a sterile dressing were applied. The patient tolerated the procedure well. The patient received postop instructions. The specimen was sent for pathologic diagnosis. Surgeon: Jesse Noel PA-C. Id#[id number] AGER [employer] P[employer]ER AND WEIGHER * Jesse Noel PA-C - 10/28/2023 11:15 AM CST Pt notified via myc AGER [employer] P[employer]ER AND WEIGHER * Dyoln You MA - 10/28/2023 11:15 AM CST Seen by patient Tonya Costello on 10/31/2023 9:48 AM AGER [employer] P[employer]ER AND WEIGHER * Bernie Galvez RN - 10/28/2023 11:15 AM CST Seen by patient Tonya Costello on 10/31/2023 9:48 AM AGER OR P[employer]ER AND WEIGHER documented in this encounter Plan of Treatment Upcoming Encounters Date Type Department Care Team (Late st Contact Info) Description 11/24/2024 1:00 PM PACKAGER [employer] P[employer]ER AND WEIGHER Procedure Surgical Procedure Visit [phone] Titus Vieyra MD [address] [place] [address] [address] [place] [address] Scheduled Orders Name Type Priority Associated Diagnoses Orde r Schedule PUNCH BIOPSY SKIN EA SEP/ADDITIONAL LESION PROCEDURES Routine Dermatitis Ordered: 10/29/2023 PUNCH BIOPSY SKIN SINGLE LESION PROCEDURES Routine Dermatitis Ordered: 10/29/2023 documented as of this encounter Procedures Procedure Name Priority Date/Time Associated Diagnosis Comments SURGICAL PATHOLOGY, TISSUE [id number] PATHOLOGIST Routine 10/28/2023 2:50 PM PACKAGER [employer] P[employer]ER AND WEIGHER Dermatitis documented in this encounter Results * Surgical Pathology, Tissue [id number] (10/28/2023 2:50 PM PACKAGER OR PACKER AND WEIGHER) Case Report Surgical Pathology Report ? Case: [id number] ? Authorizing Provider: ??Jesse Noel PA-C ? Collected: ? 10/28/2023 02:50 PM ? Ordering Location: ? Dermatology - [address], ? Received: ?10/28/2023 03:54 PM ? [place] ? Pathologist: ? Carson Joe MD ? Specimens: ?? A) - Tissue - Path, left armey, punch - r/o leukocytoclastic vasculitis vs interface ? dermatitis vs other OK To myc ? B) - Tissue - Path, left calf - punch - r/o leukocytoclastic vasculitis vs interface ? dermatitis vs other OK to myc ? 10/31/2023 8:42 AM [facility] Final Diagnosis A. Skin, left ramey, punch biopsy: -Compatible with urticarial vasculitis. -See comment. B. Skin, left calf, punch biopsy: -Perivascular dermatitis. -See comment. 10/31/2023 8:42 AM [facility] Comments A. Sections show an epidermis with mild spongiosis. Within the dermis, there is a superficial perivascular inflammatory infiltrate with lymphocytes and occasional eosinophils. There is focal perivascular karyorrhectic debris and hemorrhage. The findings are compatible with urticarial vasculitis. A drug reaction or eczematous dermatitis could also be considered. B. Sections show an unremarkable epidermis. Within the dermis, there is a superficial perivascular inflammatory infiltrate with lymphocytes and occasional eosinophils. Given the findings in biopsy A, a subtle urticarial vasculitis can be considered. Urticaria and drug reaction are in the differential diagnosis. 10/31/2023 8:42 AM [facility] Gross Description Specimen A: Received in formalin is a piece of cylindrical tissue, measuring approximately 2 mm in diameter. The skin surface is unremarkable. Specimen submitted intact. (TS-1) Specimen B: Received in formalin is a piece of cylindrical tissue, measuring approximately 2 mm in diameter. The skin surface is unremarkable. Specimen submitted intact. (TS-1) 10/31/2023 8:42 AM [facility] Embedded Images 10/31/2023 8:42 AM [facility] Tissue - Path TISSUE SPECIMEN / Unknown 10/28/2023 2:50 PM PACKAGER OR PACKER AND WEIGHER 10/28/2023 3:54 PM PACKAGER OR PACKER AND WEIGHER Tissue specimen (specimen) TISSUE SPECIMEN / Unknown 10/28/2023 2:51 PM PACKAGER OR PACKER AND WEIGHER 10/28/2023 3:54 PM PACKAGER OR PACKER AND WEIGHER Jesse Noel PA-C PATHOLOGY/CYTOLOGY O RDERABLES Performing Organization Address City/State/[facility] Co de Phone Number [facility] [address] [facility], [address] documented in this encounter Visit Diagnoses Diagnosis Dermatitis- Primary Contact dermatitis and other eczema, due to unspecified cause documented in this encounter Additional Health Concerns Assessment Noted Time A fall risk assessment has been complete d for the patient 04/26/2014 7:59 AM CDT documented as of this encounter Care Teams Big Data Platform Architect Relationship Specialty Start Date End Date Qian Mathur MD [address] [facility] [address] [place] [address] PCP - General Internal Medicine 08/13/23 06/06/24 documented as of this encounter
--- OUTSIDE RECORDS SUMMARY | 2024-11-07 06:59 | XMS_ITS | Encounter Summary ---
Author Organization [facility] Address [address] [place] [address] Care Team Providers Care Rate Setter Name Role Phone Sona Saenz MD Primary Care Provider [phone] Reason for Referral * E/M Services (Routine) - Authorized Specialty Diagnoses / Procedures Referred By Delmi zee Referred To Contact Pulmonary Diseases Diagnoses STAR (obstructive sleep apnea) Sona Saenz MD [address] [address] Referral ID Status Reason Start Date Expiration Date V isits Requested Visits Authorized [id number] Authorized 06/14/2024 06/14/2025 6 6 Scheduling Instructions This department is supported by [facility] and sees patients 18 years and older. If your appointment has not been made for you during today's visit, please refer to the scheduling instructions below. HFS and [facility] [place] patients should call the department directly. Please call [phone] to schedule your appointment. [place]: [address], [address] Floor, [place] [address] [place]: [address], [address], [place] [address] [place]: [address], [place] [address] [place]: [address], [address], [place] [address] [facility]): [address], [address], [place] [address] [place]: [address] [place] [address] [place] [address] Debi Orantes: [address] [place] [address] [facility]): [address], [address], [place] [address] For more information about [facility] physicians and locations, visit: [email or web address] In order to insure proper patient identification, we will ask for your drivers' license (or state identification) and insurance card at the time you check-in for your appointment. If your insurance requires a copay, you will also be asked for it at that time. Your insurance may require a referral for these services. IT IS THE PATIENT'S RESPONSIBILITY TO OBTAIN A REFERRAL PRIOR TO SERVICES BEING RENDERED. Charges for service obtained without a referral are the patient's responsibility. To ensure an approved referral/authorization is in place prior to service, you may call your physicians office or the Utilization Management Department at [phone], seventy-two (72) hours after the order is placed. Referrals can not be entered retrospectively. IF YOU HAVE PPO INSURANCE COVERAGE If your medical insurance is a PPO, it is the patient's responsibility to confirm that any provider, vendor and/or facility outside of [facility] is in your network. Although your PPO insurance may not require referrals, there are certain procedures (MRI, Nuclear Stress Test, Surgery, etc.) that may require an authorization from your insurance company. As long as the service is being performed at [facility], the [facility] UM staff will obtain the necessary authorization on your behalf. IF YOU HAVE HMO INSURANCE COVERAGE Your insurance requires a referral from your Primary Care Physician. [facility] will obtain authorization from your insurance company for services ordered by your [facility] PCP or [facility] specialist. A referral is not a guarantee of benefit, and we highly recommend that you call your insurance company to verify your coverage Reason for Visit * Reason Comments Follow - Up Encounter Details Date Type Department Care Team (Late st Contact Info) Description 06/14/2024 3:00 PM CDT Office Visit Internal Medicine - [facility] [address] [place] [address] Sona Saenz MD [address] [facility] [place] [address] Routine general medical examination at a health care facility (Primary Dx); Paroxysmal atrial fibrillation (HCC); Urticarial vasculitis; Post herpetic neuralgia; STAR (obstructive sleep apnea); CHRISTY (dyspnea on exertion); Weight gain, abnormal; Anticoagulant long-term use Social History Tobacco Use Types Packs/Day Years Used Date Smoking Tobacco: Former Cigarettes Smokeless Tobacco: Never Tobacco Cessation:Counseling Given: Not Answered Comments:quit 26 yrs ago Alcohol Use Standard Drinks/Week Comments Yes 0 (1 standard drink = 0.6 oz pur e alcohol) socially, 7 drinks/week PHQ-2 Answer Date Recorded PHQ-2 SCORE 0 06/14/2024 Sex and Gender Information Value Date Recorded Sex Assigned at Not on file Gender Identity Female 07/03/2021 5:51 PM CDT Sexual Orientation Not on file documented as of this encounter Last Filed Vital Signs Vital Sign Reading Time Taken Comments Blood Pressure 122/68 06/14/2024 2:57 PM CDT Pulse 61 06/14/2024 2:57 PM CDT Temperature 36.5 ??C (97.7 ??F) 06/14/2024 2:57 PM CD T Respiratory Rate - - Oxygen Saturation 99% 06/14/2024 2:57 PM CDT Inhaled Oxygen Concentration - - Weight 72.1 kg (159 lb) 06/14/2024 2:57 PM CDT Height - - Body Mass Index 25.66 03/09/2024 3:42 PM CDT documented in this encounter Functional Status Functional Status Response Date of Assess ment Hearing Problems? No 06/14/2024 Vision Problems? No 06/14/2024 Difficulty walking? No 06/14/2024 Difficulty dressing or bathing? No 06/14/2024 Problems with daily activities? No 06/14/2024 Cognitive Status Response Date of Assessm ent Memory Problems? No 06/14/2024 documented as of this encounter Progress Notes * Sona Saenz MD - 06/14/2024 3:00 PM CDT Images from the original note were not included. REASON FOR VISIT: Tonya Costello is a 63 year old female who presents for a Medicare Annual Wellness visit. Patient here for follow up from hospital . Seen cardiology for prox afib. Ws recently added on metoprolol, just recently added propafenone and paradoxa. Now cannot sleep well. Patient has had history of STAR. But never been on cpap. Patient was seen in ER. Jul 2023 - jessica. 08/2024 travel to [place] 08/2024 urticarial vasculitis CHRISTY since 2 years ago. Wt Readings from Last 6 Encounters: 06/14/24 : 159 lb (72.1 kg) 03/09/24 : 157 lb 9.6 oz (71.5 kg) 11/13/23 : 155 lb (70.3 kg) 11/10/23 : 155 lb (70.3 kg) 10/24/23 : 156 lb (70.8 kg) 08/13/23 : 156 lb 12.8 oz (71.1 kg) Patient Care Team: Patient Care Team: Sona Saenz MD as PCP - General (Internal Medicine) Flori Dupont RN as TCM [employer]) (Registered Nurse) Patient Active Problem List: AF (atrial fibrillation) (HCC) Cervical spondylosis Palpitations Post herpetic neuralgia Urticarial vasculitis Current Outpatient Medications Medication Sig Dispense Refill Propafenone HCl ER 225 MG Oral Capsule SR 12 Hr Take 225 mg by mouth 2 (two) times daily. dabigatran 150 MG Oral Cap Take 1 capsule by mouth Q12H. zolpidem 5 MG Oral Tab Take 1 tablet (5 mg total) by mouth nightly as needed for Sleep. 30 tablet 0 metoprolol succinate ER 25 MG Oral Tablet 24 Hr Take 25 mg by mouth daily. ZINC OR Use as directed in the mouth or throat. CALCIUM-MAGNESIUM OR Take by mouth. Nutritional Supplements (JUICE PLUS FIBRE OR) Take by mouth. Cholecalciferol (VITAMIN D) 1000 units Oral Tab Take by mouth. Latest Ref Rng & Units 10/24/2023 1:58 PM 02/05/2022 8:31 AM 12/28/2018 10:49 AM 04/21/2015 10:07 AM 04/22/2014 8:36 AM 07/25/2011 10:18 AM Glucose and HbA1c Glucose 74 - 109 mg/dL 86 99 92 92 89 83 HbA1c 4.0 - 5.6 % 5.5 5.2 Latest Ref Rng & Units 02/05/2022 8:31 AM 12/28/2018 10:49 AM 04/21/2015 10:07 AM Cholesterol Triglycerides <=150.00 mg/dL 44.00 71.00 34 HDL >=40 mg/dL 66 69 71 LDL <=130 mg/dL 94 88 101.2 Latest Ref Rng & Units 10/24/2023 1:58 PM 02/05/2022 8:31 AM 12/28/2018 10:49 AM 04/21/2015 10:07 AM 04/22/2014 8:36 AM 07/25/2011 10:18 AM BUN and Cr BUN 6.0 - 20.0 mg/dL 13.0 13.0 11.0 12 13 13 Creatinine 0.50 - 0.90 mg/dL 0.54 0.66 0.63 0.68 0.76 0.76 Latest Ref Rng & Units 10/24/2023 1:58 PM 12/28/2018 10:49 AM 04/21/2015 10:07 AM 07/25/2011 10:18 AM AST and ALT AST (SGOT) 0 - 32 U/L 16 19 20 18 ALT (SGPT) 0 - 33 U/L 15 19 28 15 Latest Ref Rng & Units 06/14/2024 4:03 PM 10/24/2023 1:58 PM 12/28/2018 10:49 AM 06/07/2015 8:13 AM 04/21/2015 10:07 AM TSH and Free T4 TSH 0.270 - 4.200 mIU/L 2.290 3.640 1.315 1.453 1.293 Free T4 0.93 - 1.70 ng/dL 1.05 0.88 General Health In the past six months, have you lost more than 10 pounds without trying?: 2 - No Has your appetite been poor?: No Type of Diet: Vegetarian How does the patient maintain a good energy level?: Stretching How would you describe your daily physical activity?: Light How would you describe your current health state?: Good How do you maintain positive mental well-being?: Social Interaction;Visiting Friends;Visiting Family If you are a male age 45-79 or a female age 55-79, do you take aspirin?: No Have you had any immunizations at another office such as Influenza, Hepatitis B, Tetanus, or Pneumococcal?: No Functional Ability Bathing or Showering: Able without help Toileting: Able without help Dressing: Able without help Eating: Able without help Driving: Able without help Preparing your meals: Able without help Managing money/bills: Able without help Taking medications as prescribed: Able without help Are you able to afford your medications?: No Hearing Problems?: No Functional Status Hearing Problems?: No Vision Problems? : No Difficulty walking?: No Difficulty dressing or bathing?: No Problems with daily activities? : No Memory Problems?: No Fall/Risk Assessment Have you fallen in the last 12 months?: 0-No Fall/Risk Scorin Depression Screening (PHQ-2/PHQ-9): Over the LAST 2 WEEKS Little interest or pleasure in doing things (over the last two weeks)?: Not at all Feeling down, depressed, or hopeless (over the last two weeks)?: Not at all PHQ-2 SCORE: 0 Advance Directives Do you have a healthcare power of workers compensation attorney?: Yes Do you have a living will?: Yes Cognitive Assessment What day of the week is this?: Correct What month is it?: Correct What year is it?: Correct Recall Ball : Correct Recall Flag : Correct Recall Tree : Correct PREVENTATIVE SERVICES INDICATIONS AND SCHEDULE Internal Lab or Procedure Diabetes Screening HbgA1C Annually HbA1c (%) Date Value 12/28/2018 5.5 Fasting Blood Sugar (FSB)Annually Glucose (mg/dL) Date Value 10/24/2023 86 04/22/2014 89 Cardiovascular Disease Screening LDL Annually Calculated LDL (mg/dL) Date Value 02/05/2022 94 EKG - w/ Initial Preventative Physical Exam only, or if medically necessary 2023 Colorectal Cancer Screening Colonoscopy Screen every 10 years Colorectal Cancer Screening due on 03/01/2024 Flex Sigmoidoscopy Screen every 5 years No results found for this or any previous visit. Fecal Occult Blood Annually No results found for: FOB , OCCULTSTOOL Glaucoma Screening Ophthalmology Visit Annually 2023 Immunizations Zoster (Not covered by Medicare Part B) No orders found for this or any previous visit. SPECIFIC DISEASE MONITORING Internal Lab or Procedure No disease specific diagnoses ALLERGIES: Penicillins RASH MEDICAL INFORMATION: Past Medical History: Diagnosis Date AF (atrial fibrillation) (HCC) 06/21/2013 Arrhythmia PAF, ablation 03/2014 Basal cell carcinoma STAR (obstructive sleep apnea) 01/15/22-PSG AHI-14 Tinnitus [...] TO SPLENIC FLEXURE; W/DIRECTED SUBMUCOSA INJECTION(S), ANY YAPKQJERN66/8/2012 OTHER SURGICAL HISTORY facial plastic surgery REMOVAL OF COCCYX broken coccyx, fall / childbirth/jet ski SIGMOIDOSCOPY,BIOPSY 01/11/2013 3 mm sigmoid polyp was adenoma. No recurrent polyp at tattoo site at 40 cm No family history on file. Immunization History Immunization History Administered Date(s) Administered Covid-19 Vaccine [employer] (J&J) 0.5ml 01/25/2021 Covid-19 Vaccine Moderna 100 mcg/0.5 ml 10/08/2021 Covid-19 Vaccine Moderna Bivalent 50 mcg/0.5 ml 09/02/2022 FLUZONE 6 months and older PFS 0.5 ml (88732) 08/04/2020 08/09/2021 09/02/2022 Flucelvax 0.5 ml Quad MDV 6m+ (90211) 08/04/2023 HEP A/HEP B Combined 02/25/2011 03/29/2011 10/15/2011 Pneumococcal Conjugate Pcv20 08/04/2023 TDAP 02/25/2011 Zoster Vaccine Recombinant Adjuvanted (Shingrix) 04/14/2024 SOCIAL HISTORY: Social History Tobacco Use Smoking status: Former Types: Cigarettes Smokeless tobacco: Never Tobacco comments: quit 26 yrs ago Vaping Use Vaping status: Never Used Alcohol use: Yes Comment: socially, 7 drinks/week Drug use: No REVIEW OF SYSTEMS: GENERAL: feels well otherwise SKIN: denies any unusual skin lesions EYES: denies blurred vision or double vision HEENT: denies nasal congestion, sinus pain or ST LUNGS: denies shortness of breath with exertion CARDIOVASCULAR: denies chest pain on exertion GI: denies abdominal pain, denies heartburn : denies dysuria, vaginal discharge or itching MUSCULOSKELETAL: denies back pain NEURO: denies headaches PSYCHE: denies depression or anxiety HEMATOLOGIC: denies hx of anemia ENDOCRINE: denies thyroid history ALL/ASTHMA: denies hx of allergy or asthma EXAM: BP 122/68 (BP Location: Left arm, Patient Position: Sitting, Cuff Size: adult) Pulse 61 Temp 97.7 ??F (36.5 ??C) (Temporal) Wt 159 lb (72.1 kg) SpO2 99% BMI 25.66 kg/m?? > BP Readings from Last 3 Encounters: 06/14/24 : 122/68 03/09/24 : 130/76 11/13/23 : 120/60 GENERAL: well developed, well nourished, in no apparent distress SKIN: no rashes, no suspicious lesions HEENT: atraumatic, normocephalic, ears and throat are clear Hearing Assessed via: Questionnaire EYES: PERRLA, EOMI, conjunctiva are clear NECK: supple, no adenopathy, no bruits CHEST: no chest tenderness BREAST:deferred LUNGS: clear to auscultation CARDIO: RRR without murmur GI: good BS's, no masses, HSM or tenderness : deferred RECTAL: deferred MUSCULOSKELETAL: back is not tender, FROM of the back EXTREMITIES: no cyanosis, clubbing or edema NEURO: Oriented times three, cranial nerves are intact, motor and sensory are grossly intact ASSESSMENT AND OTHER RELEVANT CHRONIC CONDITIONS: Tonya Costello is a 63 year old female who presents for a Medicare Assessment. PLAN SUMMARY: Diagnoses and all orders for this visit: Routine general medical examination at a health care facility - DC PPPS, SUBSEQ VISIT Reviewed health maintenance and med/problem list with patient. 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 Options of treatment reviewed Encouraged to lead healthy lifestyle and exercise regimen Sleep disorder Likely due to adjutment New dx of afib - zolpidem 5 MG Oral Tab; Take 1 tablet (5 mg total) by mouth nightly as needed for Sleep. - 1 mo supplement only prior to further evaluation Sleep hygiene reviewed Advised to end use daily alcohol intake Monitor Anticoagulant long-term use - CBC WITH DIFFERENTIAL WITH PLATELET; Future On pradaxa mcfp Other orders - Ecwyuvk-Pqdvud-Xkzzf Pertussis 5-2-15.5 LF-MCG/0.5 Intramuscular Suspension; Inject 0.5 mL into the muscle once for 1 dose. The patient indicates understanding of these issues and agrees to the plan. The patient is asked to return in 6 months for complete physical exam, medication check, and officevisit Diet counseling perfomed Exercise counseling perfomed Endometrial cancer awareness counseling performed SUGGESTED VACCINATIONS - Influenza, Pneumococcal, Zoster, Tetanus Influenza: No recommendations at this time Pneumonia: No recommendations at this time Shingrix shingles vaccine is due documented in this encounter Plan of Treatment Upcoming Encounters Date Type Department Care Team (Late st Contact Info) Description 11/24/2024 1:00 PM [employer] CAR [employer]ER Procedure Surgical Procedure Visit [phone] Titus Vieyra MD [address] [place] [address] [place] [address] Scheduled Referrals Name Type Priority Associated Diagnoses Orde r Schedule PULMONARY EVAL & TREAT (DMG) Referral Routine STAR (obstructive sleep apnea) Ordered: 06/14/2024 documented as of this encounter Procedures Procedure Name Priority Date/Time Associated Diagnosis Comments DC PPPS, SUBSEQ VISIT Routine 06/14/2024 3:40 PM CDT Routine general medical examination at a health care facility documented in this encounter Results * FREE T4 (FREE THYROXINE) (06/14/2024 4:03 PM CDT) Free T4 1.05 0.93 - 1.70 ng/dL 06/15/2024 1:07 PM CDT [facility] Blood Venipuncture / Unknown 06/14/2024 4:03 PM CDT 06/14/2024 4:03 PM CDT Sona Saenz MD LAB BLOOD ORDERABLES [facility] [address] [phone] * THYROID- STIMULATION HORMONE (TSH) (06/14/2024 4:03 PM CDT) TSH 2.290 0.270 - 4.200 mIU/L 06/15/2024 1:07 PM CDT [facility] Comment: TSH levels vary during , depending on a variety of factors. The [place] [employer] recommends the following treatment for hypothyroidism: In the first trimester when TSH is > 10 ??mIU/L In the absence of TPO antibodies TSH is > 4 in the presence of TPO antibodies ?? The [place] [employer] does not recommend treatment when: TSH values are below 2.5 mIU/L in the first trimester ?? Evaluation and correlation with clinical parameters for each patient is recommended to determine individual treatment selections, especially with intermediate TSH values (2.5-10 w/o TPO Ab and 2.5 - 4 w/TPO Ab) Blood Venipuncture / Unknown 06/14/2024 4:03 PM CDT 06/14/2024 4:03 PM CDT Sona Saenz MD LAB BLOOD ORDERABLES [facility] [address] [place] [address], [facility] [phone] * INSULIN (06/14/2024 4:03 PM CDT) Insulin 5.9 1.7 - 31.0 mU/L 06/15/2024 12:07 PM CDT [facility] Blood VENOUS BLOOD SPECIMEN / Unknown Venipuncture / Unknown 06/14/2024 4:03 PM CDT 06/14/2024 4:03 PM CDT Sona Saenz MD LAB BLOOD ORDERABLES Performing Organization Address City/[facility]/ZIP Co de Phone Number [facility] [address] [place], [place] [address] [phone] * NT - PROPEPTIDE OF BRAIN NATRIURETIC PEPTIDE (NT-PROBNP) (06/14/2024 4:03 PM CDT) Pathologist [facility] Pro-Beta Natriuretic Peptide 69 <=125 pg/mL 06/15/2024 9:01 AM CDT [facility] Blood BLOOD SPECIMEN / Unknown Venipuncture / Unknown 06/14/2024 4:03 PM CDT 06/14/2024 4:03 PM CDT Sona Saenz MD LAB BLOOD ORDERABLES [facility] [address] [place] [address], [facility] [phone] * XR CHEST PA + LAT CHEST ([id number]=[id number]) (06/14/2024 3:59 PM CDT) Anatomical Region Laterality Modality Chest Computed Radiogr aphy 06/15/2024 3:05 PM CDT Impressions 06/15/2024 3:08 PM CDT IMPRESSION: NO radiographic evidence of active cardiopulmonary disease. Narrative 06/15/2024 3:08 PM CDT DATE OF SERVICE: 06.14.2024 CLINICAL INDICATION: 63 years-old Female with ??CHRISTY (dyspnea on exertion). COMPARISON: Chest radiograph, 07/25/11 TECHNIQUE: Frontal and lateral radiographic views of the chest. VIEWS: 2 FINDINGS: LUNGS: No focal consolidations or pulmonary edema. There is mild chronic biapical pleural-parenchyma scarring noted. PLEURA: NO pleural effusions or pneumothoraces. HEART/MEDIASTINUM: NO cardiomegaly. Mild aortic ectasia and atherosclerotic disease. NO radiographic evidence of mediastinal or hilar adenopathy. OSSEOUS STRUCTURES: NO acute osseous abnormality. UPPER ABDOMEN: Negative. Procedure Note Ravi Pendleton MD - 06/15/2024 DATE OF SERVICE: 06.14.2024 CLINICAL INDICATION: 63 years-old Female with CHRISTY (dyspnea onexertion). COMPARISON: Chest radiograph, 07/25/11 TECHNIQUE: Frontal and lateral radiographic views of the chest. VIEWS: 2 FINDINGS: LUNGS: No focal consolidations or pulmonary edema. There is mild chronicbiapical pleural-parenchyma scarring noted. PLEURA: NO pleural effusions or pneumothoraces. HEART/MEDIASTINUM: NO cardiomegaly. Mild aortic ectasia andatherosclerotic disease. NO radiographic evidence of mediastinal or hilar adenopathy. OSSEOUS STRUCTURES: NO acute osseous abnormality. UPPER ABDOMEN: Negative. ===== IMPRESSION: NO radiographic evidence of active cardiopulmonary disease. Sona Saenz MD RIS XRAY documented in this encounter Visit Diagnoses Diagnosis Routine general medical examination at a health care facility- Primary Paroxysmal atrial fibrillation (HCC) Atrial fibrillation Urticarial vasculitis Hypersensitivity angiitis, unspecified Post herpetic neuralgia Herpes zoster with other nervous system complications STAR (obstructive sleep apnea) Obstructive sleep apnea (adult) (pediatric) CHRISTY (dyspnea on exertion) Other dyspnea and respiratory abnormality Weight gain, abnormal Abnormal weight gain Anticoagulant long-term use Long-term (current) use of anticoagulants CHRISTY (dyspnea on exertion) Other dyspnea and respiratory abnormality documented in this encounter Additional Health Concerns Assessment Noted Time A fall risk assessment has been complete d for the patient 06/14/2024 3:00 PM CDT documented as of this encounter Care Teams Rate Setter Relationship Specialty Start Date End Date Sona Saenz MD [address] [address] PCP - General Internal Medicine 06/07/24 documented as of this encounter
--- OUTSIDE RECORDS SUMMARY | 2024-11-07 06:59 | XMS_ITS | Encounter Summary ---
Author Organization [facility] Address [address] [place] [address] Care Team Providers Care Busgirl Name Role Phone Qian Mathur MD Primary Care Provider [phone] Encounter Details Date Type Department Care Team (Latest Contact Info) Description 03/09/2024 4:15 PM CDT Ancillary Procedure Radiology - [facility] [address] [place], [place] [id number] Fall, initial encounter; Acute pain of left wrist Social History Tobacco Use Types Packs/Day Years [...] No 12/17/2021 documented as of this encounter Plan of Treatment Upcoming Encounters Date Type Department Care Team (Late st Contact Info) Description 11/24/2024 1:00 PM 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 Procedure Surgical Procedure Visit [phone] Titus Vieyra MD [address] [place] [address] [address] [place] [address] documented as of this encounter Procedures Procedure Name Priority Date/Time Associated Diagnosis Comments XR WRIST COMPLETE (MIN 3 VIEWS), LEFT ([id number]) Routine 03/09/2024 4:23 PM CDT Fall, initial encounter Acute pain of left wrist documented in this encounter Results * XR WRIST COMPLETE (MIN 3 VIEWS), LEFT ([id number]) (03/09/2024 4:23 PM CDT) Anatomical Region Laterality Modality Wrist Left Computed Radiogr aphy 03/10/2024 1:27 PM CDT Impressions 03/10/2024 1:28 PM CDT IMPRESSION: Mild soft tissue swelling, with no acute fracture or dislocation found in the left wrist. Narrative 03/10/2024 1:28 PM CDT DATE OF SERVICE: 03.09.2024 XR WRIST COMPLETE (MIN 3 VIEWS), LEFT ([id number]) CLINICAL INDICATION: Fall, initial encounter. COMPARISON: 03/18/2019. TECHNIQUE: 3 routine views of the left wrist. FINDINGS: No acute fracture or dislocation is found in the left wrist. Mild degenerative changes are present laterally. There is mild soft tissue swelling. Procedure Note Sandra Cast MD - 03/10/2024 DATE OF SERVICE: 03.09.2024 XR WRIST COMPLETE (MIN 3 VIEWS), LEFT ([id number]) CLINICAL INDICATION: Fall, initial encounter. COMPARISON: 03/18/2019. TECHNIQUE: 3 routine views of the left wrist. FINDINGS: No acute fracture or dislocation is found in the left wrist.Mild degenerative changes are present laterally. There is mild soft tissue swelling. ===== IMPRESSION: Mild soft tissue swelling, with no acute fracture or dislocation found inthe left wrist. Rom Du APRN RIS XRAY documented in this encounter Visit Diagnoses Diagnosis Fall, initial encounter Acute pain of left wrist documented in this encounter Additional Health Concerns Assessment Noted Time A fall risk assessment has been complete d for the patient 04/26/2014 7:59 AM CDT documented as of this encounter Care Teams Busgirl Relationship Specialty Start Date End Date Qian Mathur MD [address] [address] PCP - General Internal Medicine 08/13/23 06/06/24 documented as of this encounter
--- OUTSIDE RECORDS SUMMARY | 2024-11-07 06:59 | XMS_ITS | Encounter Summary ---
Author Organization [facility] Address [address] [place] [address] Care Team Providers Care Field Service Poultry Technician Name Role Phone Qian Mathur MD Primary Care Provider [phone] Encounter Details Date Type Department Care Team (Late st Contact Info) Description 03/09/2024 3:30 PM CDT Office Visit Internal Medicine - [facility] [address] [facility] [address] [place] [address] Rom Du APRN [address] [facility] [address] [place], [place] [id number] Fall, initial encounter (Primary Dx); Acute pain of left wrist Social History [...] Sign Reading Time Taken Comments Blood Pressure 130/76 03/09/2024 3:42 PM CDT Pulse 72 03/09/2024 3:42 PM CDT Temperature 36.5 ??C (97.7 ??F) 03/09/2024 3:42 PM CD T Respiratory Rate - - Oxygen Saturation 99% 03/09/2024 3:42 PM CDT Inhaled Oxygen Concentration - - Weight 71.5 kg (157 lb 9.6 oz) 03/09/2024 3:42 P M CDT Height 167.6 cm (5' 6 ) 03/09/2024 3:42 PM CDT Body Mass Index 25.44 03/09/2024 3:42 PM CDT documented in this encounter Functional Status Functional Status Response Date of Assess ment Hearing Problems? No 12/17/2021 Vision Problems? No 12/17/2021 Difficulty walking? No 12/17/2021 Difficulty dressing or bathing? No 12/17/2021 Problems with daily activities? No 12/17/2021 Cognitive Status Response Date of Assessm ent Memory Problems? No 12/17/2021 documented as of this encounter Patient Instructions * Attachments The following attachments cannot be sent through Care Everywhere. * Wrist Sprain, Understanding a (Czech) documented in this encounter Progress Notes * Rom Du APRN - 03/09/2024 3:30 PM CDT Subjective: Patient ID: Tonya Costello is a 63 year old female presenting for evaluation s/p fall. HPI: Fall February 25 while on vacation. Fell at night [place]. Fell on left side on shoulder, left knee and ramey, and left wrist. Did not hit her head or lose consciousness. Initially had a hematoma on left knee but has since resolved and has minor residual bruising . Leftshoulder pain resolved. Left wrist pain remains. Left wrist has full ROM. Full sensation. Using ice, heat, and wearing wrist support. History/Other: HISTORY: Past Medical History: Diagnosis Date AF (atrial [...] TO SPLENIC FLEXURE; W/DIRECTED SUBMUCOSA INJECTION(S), ANY OPLAPTHVU68/8/2012 OTHER SURGICAL HISTORY facial plastic surgery REMOVAL [...] Drug use: No Review of Systems Constitutional: Negative. HENT: Negative. Eyes: Negative. Respiratory: Negative. Cardiovascular: Negative. Gastrointestinal: Negative. Endocrine: Negative. Genitourinary: Negative. Musculoskeletal: Negative for joint swelling, myalgias, neck pain and neck stiffness. Left wrist pain Skin: Negative. Allergic/Immunologic: Negative. Neurological: Negative. Hematological: Negative. Psychiatric/Behavioral: Negative. Current Outpatient Medications Medication Sig Dispense Refill aspirin 81 MG Oral Tab EC Take 81 mg by mouth daily. metoprolol succinate ER 25 MG Oral Tablet 24 Hr Take 25 mg by mouth daily. ZINC OR Use as directed in the mouth or throat. CALCIUM-MAGNESIUM OR Take by mouth. Doxycycline Hyclate 100 MG Oral Tab Take [...] or Shortness of Breath. 8.5 g 0 Nutritional Supplements (JUICE PLUS FIBRE OR) Take by mouth. Cholecalciferol (VITAMIN D) 1000 units Oral Tab Take by mouth. TURMERIC OR Take by mouth. Allergies: Penicillins RASH Objective: 03/09/24 1542 BP: 130/76 Pulse: 72 Temp: 97.7 ??F (36.5 ??C) TempSrc: Temporal SpO2: 99% Weight: 157 lb 9.6 oz (71.5 kg) Height: 5' 6 (1.676 m) Body mass index is 25.44 kg/m??. Physical Exam Constitutional: Appearance: Normal appearance. Cardiovascular: Rate and Rhythm: Normal rate and regular rhythm. Pulses: Normal pulses. Heart sounds: Normal heart sounds. No murmur heard. Pulmonary: Effort: Pulmonary effort is normal. No respiratory distress. Breath sounds: Normal breath sounds. No wheezing or rhonchi. Chest: Chest wall: No tenderness. Abdominal: General: Bowel sounds are normal. Palpations: Abdomen is soft. Tenderness: There is no abdominal tenderness. Musculoskeletal: Left wrist: Tenderness present. No swelling, deformity, effusion or lacerations. Decreased range ofmotion. Cervical back: Normal range of motion and neck supple. No rigidity or tenderness. Right lower leg: No edema. Left lower leg: No edema. Lymphadenopathy: Cervical: No cervical adenopathy. Skin: General: Skin is warm and dry. Capillary Refill: Capillary refill takes less than 2 seconds. Findings: No erythema or rash. Neurological: General: No focal deficit present. Mental Status: She is alert and oriented to person, place, and time. Mental status is at baseline. Psychiatric: Mood and Affect: Mood normal. Behavior: Behavior normal. Thought Content: Thought content normal. Judgment: Judgment normal. XR WRIST COMPLETE (MIN 3 VIEWS), LEFT ([id number]) Result Date: 03/10/2024 IMPRESSION: Mild soft tissue swelling, with no acute fracture or dislocation found in the left wrist. Assessment & Plan: Diagnoses and all orders for this visit: Acute pain of left wrist Fall, initial encounter - XR WRIST COMPLETE (MIN 3 VIEWS), LEFT ([id number]); Future Physical exam stable. Vital signs stable. No bruising, erythema, or swelling of left wrist. Xray left wrist negative. Continue rest, ice, heat. Recommend daily wrist support. May take OTC tylenol or ibuprofen for pain. Consider MRI and ortho referral if continued pain. Meds This Visit: Requested Prescriptions No prescriptions requested or ordered in this encounter Imaging & Referrals: None 20 minutes total time spent in pre-visit work, reviewing history/test results, face to face time, education/counseling, placing orders, documentation, independent results interpretation, and coordination of care. Patient requires frequent health visits to maintain health optimization and has a longitudinal care relationship with Internal medicine. documented in this encounter Plan of Treatment Upcoming Encounters Date Type Department Care Team (Late st Contact Info) Description 11/24/2024 1:00 PM CONCRETE GUN OPERATOR Procedure Surgical Procedure Visit [phone] Titus Vieyra MD [address] [facility] [address] [place] [address] documented as of this encounter Results * XR WRIST COMPLETE (MIN 3 VIEWS), LEFT ([id number]) (03/09/2024 4:23 PM CDT) Anatomical Region Laterality Modality Wrist Left Computed Radiogr aphy 03/10/2024 1:27 PM CDT Impressions 03/10/2024 1:28 PM CDT IMPRESSION: Mild soft tissue swelling, with no acute fracture or dislocation found in the left wrist. Narrative 03/10/2024 1:28 PM CDT DATE OF SERVICE: 03.09.2024 XR WRIST COMPLETE (MIN 3 VIEWS), LEFT ([id number]) CLINICAL INDICATION: Fall, initial encounter. COMPARISON: 03/18/2019. TECHNIQUE: 3 routine views of the left wrist. FINDINGS: No acute fracture or dislocation is found in the left wrist. Mild degenerative changes are present laterally. There is mild soft tissue swelling. Procedure Note Sandra Cast MD - 03/10/2024 DATE OF SERVICE: 03.09.2024 XR WRIST COMPLETE (MIN 3 VIEWS), LEFT ([id number]) CLINICAL INDICATION: Fall, initial encounter. COMPARISON: 03/18/2019. [...] this encounter Visit Diagnoses Diagnosis Fall, initial encounter- Primary Acute pain of left wrist Fall, initial encounter Acute pain of left wrist documented in this encounter Additional Health Concerns Assessment Noted Time A fall risk assessment has been complete d for the patient 04/26/2014 7:59 AM CDT documented as of this encounter Care Teams Field Service Poultry Technician Relationship Specialty Start Date End Date Qian Mathur MD [address] [place] [address] PCP - General Internal Medicine 08/13/23 06/06/24 documented as of this encounter
--- OUTSIDE RECORDS SUMMARY | 2024-11-07 06:59 | XMS_ITS | Encounter Summary ---
Author Organization [facility] Address [address] [place] [address] Care Team Providers Care Horse Show Judge Name Role Phone Qian Mathur MD Primary Care Provider [phone]- [phone] Encounter Details Date Type Department Care Team (Late st Contact Info) Description 11/07/2023 10:30 AM DONOR RELATIONS COORDINATOR Office Visit Dermatology - [facility] [address] [place], [place] [id number] Tyree Rayo MD [address] [facility] [address] [place], [place] [id number] Inflamed epidermoid cyst of skin (Primary Dx); Pain; Seborrheic keratoses, inflamed Social History Tobacco Use Types Packs/Day Years [...] No 12/17/2021 documented as of this encounter Progress Notes * Bhakti Thomas LPN - 11/07/2023 10:30 AM CST Date of Operation: 11/07/23 EXCISION OPERATIVE NOTE: Tonya Costello is a 62 year old female who presents for excision of painful inflamed epidermal cyst left upper back--2.5 cm. Final diameter of each lesion including margins was 2.5 cm. Procedure explained and risks discussed including bleeding, bruising, infection, scarring, and recurrence. Area(s) prepped, draped, and anesthetized using buffered 1% lidocaine with epinephrine. Elliptical excisions were done and the tissue was sent for pathology. (Extensive) undermining was done and an Intermediate layered closure was done closing the subcutaneous tissue and nonmuscle fascia using simple interrupted 3-0 vicryl sutures. This was done to close the space and reduce tension on the epidermis. The complex layered closure was done given the relatively large size of the defect and to avoid distortion of the surrounding anatomy. The epidermis was approximated using running baseball 6-0 prolene sutures. Combined length(s) of closure was (were) 2.3 cm. Steristrips and sterile dressing were applied. Patient advised on post- op care and will return in 7 days for suture removal.We will call with path results. - suture removal done today to 2 punch BX done in [place] Inflamed Seborrheic Keratosis X 1 right posterior thigh x 1 left lower abdomen Advised as physically tender cryosurgery performed. Advised on post-care and blistering and risks including hyper and hypopigmentation and recurrence. Advised to follow up for recheck if the lesion recurs or persists. - Time-out performed at 10:38 AM ( time stamp) Patient verified Procedure verified Site verified Allergies and Anticoagulation use verified Consent verified R RELATIONS COORDINATOR * Tyree Rayo MD - 11/07/2023 10:30 AM CST Benign epidermal cyst left upper back. R RELATIONS COORDINATOR * Bhakti Thomas LPN - 11/07/2023 10:30 AM CST Good afternoon, The biopsy from the back came back as a benign (non cancerous) cyst, no further treatment is neededat this time. Follow up as planned with your provider. Please contact the office with any further question. Thanks Bhakti (staff nurse) Office: [phone] R RELATIONS COORDINATOR documented in this encounter Plan of Treatment Upcoming Encounters Date Type Department Care Team (Late st Contact Info) Description 11/24/2024 1:00 PM DONOR RELATIONS COORDINATOR Procedure Surgical Procedure Visit [phone] Titus Vieyra MD [address] [place] [address] [address] [place] [address] Scheduled Orders Name Type Priority Associated Diagnoses Orde r Schedule EXC SKIN BENIG 2.1-3CM TRUNK,ARM,LEG PROCEDURES Routine Inflamed epidermoid cyst of skin Pain Ordered: 11/07/2023 LAYR CLOS WND TRUNK,ARM,LEG <2.5CM PROCEDURES Routine Inflamed epidermoid cyst of skin Pain Ordered: 11/07/2023 DESTRUCTION BENIGN LESIONS, OTHER THAN SKIN PROCEDURES Routine Seborrheic keratoses, inflamed Ordered: 11/07/2023 documented as of this encounter Procedures Procedure Name Priority Date/Time Associated Diagnosis Comments SURGICAL PATHOLOGY, TISSUE [id number] Routine 11/07/2023 10:17 AM DONOR RELATIONS COORDINATOR Inflamed epidermoid cyst of skin documented in this encounter Results * Surgical Pathology, Tissue [id number] (11/07/2023 10:17 AM DONOR RELATIONS COORDINATOR) Case Report Surgical Pathology Report ? Case: [id number] ? Authorizing Provider: ??Tyree Rayo MD ?Collected: ? 11/07/2023 10:17 AM ? Ordering Location: ? Dermatology - [facility], Received: ?11/07/2023 11:07 AM ? [place] ? Pathologist: ? Tyree Rayo MD ? Specimen: ?Tissue, left upper back , excision - inflamed epidermal cyst ? 11/12/2023 1:00 PM [facility] DER[facility] Final Diagnosis Skin, left upper back, excision: Epidermal cyst 11/12/2023 1:00 PM [facility] Gross Description Specimen A: Received in formalin, is a portion of soft tissue. The skin portion measures 18 mm in greatest dimension. The subcutaneous mass measures 24 mm in dimension. The specimen is entirely submitted. (TS-3) 11/12/2023 1:00 PM [facility] [employer] LABORAT[facility] Embedded Images 11/12/2023 1:00 PM [facility] Tissue TISSUE SPECIMEN / Unknown 11/07/2023 10:17 AM DONOR RELATIONS COORDINATOR 11/07/2023 11:07 AM DONOR RELATIONS COORDINATOR Tyree Rayo MD PATHOLOGY/CYTOLOGY O RDERABLES [facility] [address] [facility], [place] [address], [facility] [address] [facility], [address] [place] [address], [facility] documented in this encounter Visit Diagnoses Diagnosis Inflamed epidermoid cyst of skin- Primary Sebaceous cyst Pain Generalized pain Seborrheic keratoses, inflamed documented in this encounter Additional Health Concerns Assessment Noted Time A fall risk assessment has been complete d for the patient 04/26/2014 7:59 AM CDT documented as of this encounter Care Teams Horse Show Judge Relationship Specialty Start Date End Date Qian Mathur MD [address] [facility] [address] [place] [address] PCP - General Internal Medicine 08/13/23 06/06/24 documented as of this encounter
--- OUTSIDE RECORDS SUMMARY | 2024-11-07 06:59 | XMS_ITS | Encounter Summary ---
Author Organization [facility] Address [address] [place] [address] Care Team Providers Care Assistant Manager Of Operations Name Role Phone Qian Mathur MD Primary Care Provider [phone] Encounter Details Date Type Department Care Team (Latest Contact Info) Description 10/24/2023 1:55 PM MIDLEVEL PROVIDER [facility] Lab Encounter Lab - [facility] [address] [place], [place] [id number] General medical exam; Body rash; Frequent nosebleeds Social History Tobacco Use Types Packs/Day Years [...] Encounters Date Type Department Care Team (Late Contact Info) Description 11/24/2024 1:00 PM MIDLEVEL PROVIDER Procedure Surgical Procedure Visit [phone] Titus Vieyra MD [address] [place] [address] [address] [place] [address] documented as of this encounter Procedures Procedure Name Priority Date/Time Associated Diagnosis Comments COMPLETE BLOOD COUNT (CBC) WITH DIFFERENTIAL Routine 10/24/2023 1:58 PM MIDLEVEL PROVIDER General medical exam Body rash Frequent nosebleeds COMPREHENSIVE METABOLIC PANEL Routine 10/24/2023 1:58 PM MIDLEVEL PROVIDER General medical exam SEDIMENTATION RATE (ESR) Routine 10/24/2023 1:58 PM MIDLEVEL PROVIDER Body rash Frequent nosebleeds C-REACTIVE PROTEIN (CRP), QUANTITATIVE Routine 10/24/2023 1:58 PM MIDLEVEL PROVIDER Body rash Frequent nosebleeds ANTINUCLEAR ANTIBODIES (KRISTA), QUALITATIVE, BY MULTIPLEX IMMUNOASSAY Routine 10/24/2023 1:58 PM MIDLEVEL PROVIDER Body rash Frequent nosebleeds COMPLETE BLOOD COUNT (CBC) WITH DIFFERENTIAL Routine 10/24/2023 1:58 PM MIDLEVEL PROVIDER General medical exam Body rash Frequent nosebleeds TSH W REFLEX TO FREE T4 Routine 10/24/2023 1:58 PM MIDLEVEL PROVIDER General medical exam documented in this encounter Results * (ABNORMAL) COMPLETE BLOOD COUNT (CBC) WITH DIFFERENTIAL (10/24/2023 1:58 PM MIDLEVEL PROVIDER) WBC 6.17 4.00 - 13.00 10^3/uL 10/24/2023 3:25 PM MIDLEVEL PROVIDER [facility] RBC 3.88 3.80 - 5.10 10^6/uL 10/24/2023 3:25 PM MIDLEVEL PROVIDER [facility] Hemoglobin 11.9(L) 12.0 - 16.0 g/dL 10/24/2023 3:25 PM MIDLEVEL PROVIDER [facility] Hematocrit 36.3 34.0 - 50.0 % 10/24/2023 3:25 PM MIDLEVEL PROVIDER [facility] MCV 93.6 81.0 - 100.0 fL 10/24/2023 3:25 PM MIDLEVEL PROVIDER [facility] MCH 30.7 27.0 - 33.2 pg 10/24/2023 3:25 PM [facility] MCHC 32.8 31.0 - 37.0 g/dL 10/24/2023 3:25 PM MIDLEVEL PROVIDER [facility] Platelet Count 268 150 - 450 10^3/uL 10/24/2023 3:25 PM [facility] RDW 12.6 11.5 - 16.0 % 10/24/2023 3:25 PM [facility] MPV 10.7 7.0 - 11.5 fL 10/24/2023 3:25 PM [facility] Neutrophils Absolute 3.34 1.30 - 6.70 10? 3 /??L 10/24/2023 3:25 PM MIDLEVEL PROVIDER [facility] Lymphocytes Absolute 2.05 0.90 - 4.00 10? 3 /??L 10/24/2023 3:25 PM MIDLEVEL PROVIDER [facility] Monocytes Absolute 0.52 0.10 - 1.00 10? 3 /??L 10/24/2023 3:25 PM MIDLEVEL PROVIDER [facility] Eosinophils Absolute 0.19 0.00 - 0.30 10? 3 /??L 10/24/2023 3:25 PM MIDLEVEL PROVIDER [facility] Basophils Absolute 0.07 0.00 - 0.10 10? 3 /??L 10/24/2023 3:25 PM MIDLEVEL PROVIDER [facility] nRBC Absolute 0.000 0.000 - 0.012 10? 3 /??L 10/24/2023 3:25 PM MIDLEVEL PROVIDER [facility] Neutrophils % 54.2 % 10/24/2023 3:25 PM [facility] Lymphocytes % 33.2 % 10/24/2023 3:25 PM MIDLEVEL PROVIDER [facility] Monocytes % 8.4 % 10/24/2023 3:25 PM [facility] Eosinophils % 3.1 % 10/24/2023 3:25 PM MIDLEVEL PROVIDER [facility] Basophils % 1.1 % 10/24/2023 3:25 PM [facility] nRBC/100 WBC 0.00 % 10/24/2023 3:25 PM [facility] Blood Venipuncture / Unknown 10/24/2023 1:58 PM MIDLEVEL PROVIDER 10/24/2023 1:58 PM MIDLEVEL PROVIDER [facility] CLAIMS REPRESENTATIVE LAB BLOOD ORDERABLES [facility] [address] [phone] * ANTINUCLEAR ANTIBODIES (KRISTA), QUALITATIVE, BY MULTIPLEX IMMUNOASSAY (10/24/2023 1:58 PM MIDLEVEL PROVIDER) KRISTA Screen Negative Negative 10/25/2023 2:50 PM MIDLEVEL PROVIDER [facility] Comment:The KRISTA Screen is ne gative for the following antibodies: dsDNA, Chromatin, Ribosomal P, SS-A, SS-B, Centromere B, [place], SmRNP, CAN STRIPER, SCL-70, and Neda-1 Blood Venipuncture / Unknown 10/24/2023 1:58 PM MIDLEVEL PROVIDER 10/24/2023 1:58 PM [facility] Performing Organization Address City/[facility]/ZIP Co de Phone Number [facility] [address] [place], [place] [id number] [place] [address] * SEDIMENTATION RATE (ESR) (10/24/2023 1:58 PM MIDLEVEL PROVIDER) Erythrocyte Sedimentation Rate 10 0 - 20 mm/hr 10/24/2023 4:16 PM MIDLEVEL PROVIDER [facility] Blood Venipuncture / Unknown 10/24/2023 1:58 PM MIDLEVEL PROVIDER 10/24/2023 1:58 PM MIDLEVEL PROVIDER [facility] CLAIMS REPRESENTATIVE LAB BLOOD ORDERABLES Performing Organization Address [facility] Co de Phone Number [facility] [address] [place], [place] [id number] [place] [address] * C-REACTIVE PROTEIN (CRP), QUANTITATIVE (10/24/2023 1:58 PM MIDLEVEL PROVIDER) Pathologist [facility] C-Reactive Protein <0.30 <=0.50 mg/dL 10/24/2023 7:13 PM [facility] Blood Venipuncture / Unknown 10/24/2023 1:58 PM MIDLEVEL PROVIDER 10/24/2023 1:58 PM MIDLEVEL PROVIDER [facility] Performing Organization Address [facility] de Phone Number [facility] [address] [place], [place] [address] [phone] * TSH W REFLEX TO FREE T4 (10/24/2023 1:58 PM MIDLEVEL PROVIDER) [facility] TSH 3.640 0.270 - 4.200 mIU/L 10/25/2023 10:27 AM MIDLEVEL PROVIDER [facility] Comment: TSH levels vary during , depending on a variety of factors. The [place] [employer] recommends the following treatment for hypothyroidism: In the first trimester when TSH is > 10 ??mIU/L In the absence of TPO antibodies TSH is > 4 in the presence of TPO antibodies ?? The [place] [employer] does not recommend treatment when: TSH values are below 2.5 mIU/L in the first trimester ?? Evaluation and correlation with clinical parameters for each patient is recommended to determine individual treatment selections, especially with intermediate TSH values (2.5-10 w/o TPO Ab and 2.5 - 4 w/TPO Ab) Blood Venipuncture / Unknown 10/24/2023 1:58 PM MIDLEVEL PROVIDER 10/24/2023 1:58 PM MIDLEVEL PROVIDER Rom Ana Laura CLAIMS REPRESENTATIVE LAB BLOOD ORDERABLES Performing Organization Address City/[facility] Co de Phone Number [facility] [address] [facility] [address] [phone] * (ABNORMAL) COMPREHENSIVE METABOLIC PANEL (10/24/2023 1:58 PM MIDLEVEL PROVIDER) Patient Fasting? No 10/24/20 7:12 PM MIDLEVEL PROVIDER [facility] Glucose 86 74 - 109 mg/dL 10/24/2023 7:12 PM [facility] Blood Urea Nitrogen 13.0 6.0 - 20.0 mg/dL 10/24/2023 7:12 PM MIDLEVEL [facility]ER [facility] Creatinine 0.54 0.50 - 0.90 mg/dL 10/24/2023 7:12 PM [facility]LEVEL PROVIDER [facility] BUN/CREAT Ratio 24.0(H) 10.0 - 20.0 10/24/2023 7:12 PM [facility] Sodium 141 136 - 145 mmol/L 10/24/2023 7:12 PM [facility] Potassium 3.9 3.5 - 5.2 mmol/L 10/24/2023 7:12 PM MIDLEVEL PROVIDER [facility] Chloride 100 98 - 107 mmol/L 10/24/2023 7:12 PM MIDLEVEL PROVIDER [facility] Carbon Dioxide 28.7 22.0 - 29.0 mmol/L 10/24/2023 7:12 PM [facility] Calcium 9.7 8.6 - 10.3 mg/dL 10/24/2023 7:12 PM [facility] Total Protein 6.8 6.4 - 8.3 g/dL 10/24/2023 7:12 PM MIDLEVEL PROVIDER [facility] Albumin 4.2 3.5 - 5.2 g/dL 10/24/2023 7:12 PM MIDLEVEL PROVIDER [facility] Bilirubin, Total 0.27 0.00 - 1.20 mg/dL 10/24/2023 7:12 PM MIDLEVEL PROVIDER [facility] Alkaline Phosphatase 50 50 - 130 U/L 10/24/2023 7:12 PM [facility] AST 16 0 - 32 U/L 10/24/2023 7:12 PM [facility] ALT 15 0 - 33 U/L 10/24/2023 7:12 PM MIDLEVEL PROVIDER [facility] GFR CKD-EPI 100.04 >=60.00 mL/min/1.7 3 m?? 10/24/2023 7:12 PM MIDLEVEL PROVIDER [facility] Comment: Estimated GFR units: mL/min/1.73 square meters eGFR calculated by the CKD-EPI equation. Blood Venipuncture / Unknown 10/24/2023 1:58 PM MIDLEVEL PROVIDER 10/24/2023 1:58 PM MIDLEVEL PROVIDER Rom Du CLAIMS REPRESENTATIVE LAB BLOOD ORDERABLES [facility] [address] [phone] documented in this encounter Visit Diagnoses Diagnosis General medical exam Unspecified general medical examination Body rash Frequent nosebleeds documented in this encounter Additional Health Concerns Assessment Noted Time A fall risk assessment has been complete d for the patient 04/26/2014 7:59 AM CDT documented as of this encounter Care Teams Assistant Manager Of Operations Relationship Specialty Start Date End Date Qian Mathur MD [address] [facility] [address] [place] [id number] PCP - General Internal Medicine 08/13/23 06/06/24 documented as of this encounter
--- OUTSIDE RECORDS SUMMARY | 2024-11-07 06:59 | XMS_ITS | Encounter Summary ---
Author Organization [facility] Address [address] [place] [address] Care Team Providers Care Hedis Abstractor Name Role Phone Sona Saenz MD Primary Care Provider [phone] Reason for Referral * Procedure (Routine) - Authorized Specialty Diagnoses / Procedures Referred By Delmi zee Referred To Contact Gastroenterology Diagnoses Screen for colon cancer Procedures COLONOSCOPY,DIAGNOSTIC COLONOSCOPY,BIOPSY COLONOSCOPY,REMV LESN,FORCEP/CAUTERY COLONOSCOPY,REMV LESN,SNARE Titus Vieyra MD [address] [place] [address] Titus Vieyra MD [address] [place] [address] Referral ID Status Reason Start Date Expiration Date V isits Requested Visits Authorized [id number] Authorized 11/24/2024 10/21/2025 3 3 Scheduling Instructions Your physician has referred you for a Screening Colonoscopy procedure at [facility]. If you are over 45, NOT having any ongoing GI symptoms, you can schedule your screening colonoscopy now. To expedite this process, please log in to your [employer] account and complete the Colonoscopy Questionnaire that was sent to you. Once the questionnaire is submitted, a member of our GI scheduling team will contact you within 48 hours to schedule your procedure. If you do not receive a call within 48 hours, please contact our schedulers directly at [phone]. If you are having ongoing GI symptoms and need an office visit, please call [phone]. For more information about [facility] physicians and locations, visit: [email or web address]. In order to insure proper patient identification, we will ask for your drivers' license (or state identification) and insurance card at the time you check-in for your appointment. If your insurance requires a copay, you will also be sked for it at that time. Your insurance may require a referral for these services. IT IS THE PATIENT'S RESPONSIBILITY TO OBTAIN A REFERRAL PRIOR TO SERVICES BEING RENDERED. Charges for service obtained without a referral are the patient's responsibility. To ensure an approved referral/authorization is in place prior to service, you may call your physicians office or the Utilization Management Department at [phone], seventy-two (72) hours after the order is placed. Referrals can not be entered retrospectively. IF YOU HAVE PPO INSURANCE COVERAGE If your medical insurance is a PPO, it is the patient's responsibility to confirm that any provider, vendor and/or facility outside of [facility] is in your network. Although your PPO insurance may not require referrals, there are certain procedures (MRI, Nuclear Stress Test, Surgery, etc.) that may require an authorization from your insurance company. As long as the service is being performed at [facility], the [facility] UM staff will obtain the necessary authorization on your behalf. IF YOU HAVE HMO INSURANCE COVERAGE Your insurance requires a referral from your Primary Care Physician. [facility] will obtain authorization from your insurance company for services ordered by your [facility] PCP or [facility] specialist. A referral is not a guarantee of benefit, and we highly recommend that you call your insurance company to verify your coverage FILLING OPERATOR Reason for Visit * Reason Onset Date Comments Schedule Surgery 10/21/2024 Encounter Details Date Type Department Care Team (Late st Contact Info) Description 10/21/2024 Telephone Gastroenterology - [address] [place] [address] Titus Vieyra MD [address] [place] [address] Schedule Surgery Social History Tobacco Use Types Packs/Day Years [...] as of this encounter Progress Notes * Jacquelin Beckford RN - 10/22/2024 1:45 PM CST RN noted need for BT clearance. See TE Anticoagulation 10/22/2024 FILLING OPERATOR * Monique Macedo - 10/21/2024 2:51 PM CST Patient Scheduled at [facility]. . SOFTWARE ENGINEER INTERN- Schedule at facility and complete referral SOFTWARE ENGINEER INTERN- [facility] Medications to hold: Anticoagulants: Yes, Dabagatrin/Pradaxa . Prescribing Provider: Cm Melton [phone] - SENT TO RN TO OBTAIN CLEARANCE Bowel Preparation BowelPreparation:PEG prep Special Instructions: No Sedation MAC Sedation ? Yes. FILLING OPERATOR * Monique Macedo - 10/21/2024 2:24 PM CST TELEPHONE CONSULT Open Access -DEPARTMENT OF GASTROENTEROLOGY CHIEF COMPLAINT: 5 Years 10/21/2024 Tonya Costello [id number] (home) [phone] (work) Physician: Titus Vieyra MD Conducted by: Monique Macedo 63 year old 1960 female Sona Saenz MD Estimated body mass index is 25.02 kg/m?? as calculated from the following: Height as of 03/09/24: 5' 6 (1.676 m). Weight as of 09/10/24: 155 lb (70.3 kg). Height and weight documented in flowsheet:Yes As a courtesy we are able to offer you this colon cancer screening appointment over the phone free of charge however, if you prefer to see the physician in the office first, I can make that appointment for you. You will have to check with your insurance regarding coverage for an office visit. If you are having NEW, unexplained symptoms such as abdominal pain, constipation, diarrhea, rectal bleeding, or unintentional weight loss and need an appointment to address these issues I can make an appointment at this time. Tonya Costello was offered an office visit with a physician before their procedure and it was Declined at this time. OPEN ACCESS QUESTIONAIRE: Do you have COPD? No Do you use oxygen at home? No Do you have Chronic Kidney issues and/or are you on dialysis? No Do you suffer from any type of Bleeding Disorders ? No Do you suffer from any type of liver disease other than fatty liver? No Have you been diagnosed with a cancer other than skin cancer within the last 6 months, or are you currently undergoing chemo and/or radiation treatment for cancer? No If patient answers YES to any of the above questions an office or video visit with a nurse practitioners may be required. Have you had any cardiac stents placed within the past 12 months? No Have you ever had any problems with anesthesia (i.e. general, or IV sedation) such as extreme nausea, vomiting, difficulty being sedated, becoming alert during sedation, or difficulty with arousal ? Yes Vomiting Have you ever been told you have a difficult airway and/or airway management resulting in intubation?No Over the last 30 days have you used narcotics or prescription pain medication on more than 15 occasions? No Have you or any of your family members suffered from malignant hyperthermia? No 6. History of AFib or Arrythmia? Yes 7. History of STAR? No 8. Are you taking any anti-depressant, anti-anxiety, anti-psychotic or seizure- medications? No If patient answers yes to any of the above Questions- MAC SEDATION is recommended. Tonya Costello GI History Findings: Colonoscopy/Year 03/01/2019 Polyps Removed from the : diverticulosis, unremarkable tattoos in ascending and descending TA No HP No Upper Endoscopy /Year Review Above Procedure History- Have you had a colonoscopy/ upper endoscopy since the above dates? No Allergies: Penicillins RASH Allergies were reviewed with patient: Yes Medications: Current Outpatient Medications Medication Sig Dispense Refill [...] 1000 units Oral Tab Take by mouth. Medications were reviewed with patient: Yes HISTORY: Past Medical History: Diagnosis Date AF [...] TO SPLENIC FLEXURE; W/DIRECTED SUBMUCOSA INJECTION(S), ANY TEOVPXHNA96/8/2012 OTHER SURGICAL HISTORY facial plastic surgery REMOVAL [...] Comment: socially, 7 drinks/week Drug use: No Anticoagulant therapy Are you currently taking any anticoagulant/ antiplatelet medication? Yes, Dabagatrin/Pradaxa . Prescribing Provider: Cm Melton -[phone] Diabetic/Weight Loss therapy/additional med holds Are you taking any of the following glucagon-like peptide 1 (GLP-1) for Diabetes or weight loss besides Metformin or Insulin? No Are you currently taking the following medications: Empagliflozin (Jardience)- No Canagliflozin (Invokana)- No Dapagliflozin (Farxiga)- No Ertugliflozin (Steglatro)- No Phentermine (Lomaira)- No Diethylpropion- No Bupropion/Naltrexone (Contrave)- No Iron- No If ???yes?? initiate hold protocols. Do you have a history of infectious disease such as MRSA, Klebsiella, C-DIFF or ESBL? No Have you ever tested positive for Covid-19/Coronavirus? Yes. Date of last positive test 04/2022 Pacemaker? No. If patient has pacemaker, has pacemaker been interrogated within the past 12 months and where? DE fib/AICD? No. Allergies to Latex? No Allergies to Nickel? No If ???yes?? initiate hold protocols. Have you ever had to reschedule a colonoscopy due to inadequate prep? No Do you suffer from chronic constipation? No If Yes to any of the above- two day prep is recommended. Is there anything else that we need to know that would impact your procedure? No Surgery Schedule Date: 11/24/2024 Procedure time: 1pm Location: [facility] The patient was instructed that a friend or relative will need [facility] will be [facility] and unable to drive. Use of taxi or limo services are not allowed by the policies of all endoscopy centers that service our patients. If the patient can not find a regional company truck driver, the patient has the option of having the procedure be a performed without sedation. Diet, prep and medications reviewed with the Tonya Costello. E-scribed or (telephoned ) bowel prep to the patients preferred pharmacy. PREP: PEG prep Two day bowel prep instructions given? No Two (2) days prior to procedure: drink only clear liquids with calories not just water ALL DAY- NO SOLID FOOD At 4 PM: Drink 1 bottle of Magnesium citrate 10 oz- lemon/ [place] flavor only Day prior: Drink only clear liquids with calories not just water ALL DAY- NO SOLID FOOD From 6-8 PM: Drink 1st part of solution 1/2 Gallon (2 L) of PEG Day of procedure: tail puller about 6 hours prior to colonoscopy: Drink 2nd part of solution 1/2 Gallon (2 L) of PEG Nothing by mouth 4 hours prior to procedure Insurance coverage has been verified: Yes Patient Insurance: [employer] [place] If no coverage, please transfer call to registration. Patients should check with their insurance regarding coverage- patients with symptoms, a history ofpolyps or who do not meet screening guidelines may not be eligible for preventative coverage. Remind patients to read instructions thoroughly. Procedure times are approximate and may be changed by the facility. FILLING OPERATOR documented in this encounter Plan of Treatment Upcoming Encounters Date Type Department Care Team (Late st Contact Info) Description 11/24/2024 1:00 PM MOLD FILLING OPERATOR Procedure Surgical Procedure Visit [phone] Titus Vieyra MD [address] [place] [address] Scheduled Referrals Name Type Priority Associated Diagnoses Orde r Schedule COLONOSCOPY SCREENING - REFERRAL Referral Routine Screen for colon cancer Ordered: 10/21/2024 documented as of this encounter Goals Goal Patient Goal Type Associated Problems Recent Progress Patient-Stated? Author Colonoscopy Instructions Care Plan DMG COLONOSCOPY PROBLEM TEMPLATE No Monique Macedo documented as of this encounter Visit Diagnoses Diagnosis Screen for colon cancer- Primary Special screening for malignant neoplasms, colon documented in this encounter Additional Health Concerns Active Problems Noted Date Diagnosed Date [facility] COLONOSCOPY PROBLEM TEMPLATE 10/21/2024 Assessment Noted Time A fall risk assessment has been complete d for the patient 06/14/2024 3:00 PM CDT documented as of this encounter Care Teams Hedis Abstractor Relationship Specialty Start Date End Date Sona Saenz MD [address] [address] PCP - General Internal Medicine 06/07/24 documented as of this encounter
--- OUTSIDE RECORDS SUMMARY | 2024-11-07 06:59 | XMS_ITS | Encounter Summary ---
Author Organization [facility] Address [address] [place] [address] Care Team Providers Care Dewatering Filtering Supervisor Name Role Phone Qian Mathur MD Primary Care Provider [phone] Reason for Visit * Reason Comments Suture Removal Encounter Details Date Type Department Care Team (Late st Contact Info) Description 11/14/2023 9:00 AM JAVA TECH LEAD Nurse Only Dermatology - [facility] [address] [place], [place] [id number] Suture Removal Social History Tobacco Use Types Packs/Day Years [...] as of this encounter Progress Notes * Beverly Krishna RN - 11/14/2023 9:00 AM CST Suture Removal Diagnosis: epidermal cyst Surgeon: Tyree Rayo MD Procedure: excision Site: left upper back Procedure Date: 11/07/2023 Examination of Wound: Bandage was: Intact Wound Appears: Clean Wound is Satisfactory: Yes Procedure today: Suture Removal, Steristrips with Instructions Comments: Per provider, wound healing well. No further wound care required. Instructions for further wound care were given to patient: No Rx Given: n/a Follow up: PRN. TECH LEAD documented in this encounter Plan of Treatment Upcoming Encounters Date Type Department Care Team (Late st Contact Info) Description 11/24/2024 1:00 PM JAVA TECH LEAD Procedure Surgical Procedure Visit [phone] Titus Vieyra MD [address] [place] [address] [address] [place] [address] Scheduled Orders Name Type Priority Associated Diagnoses Orde r Schedule POST-OP FOLLOW-UP VISIT PROCEDURES Routine Encounter for removal of sutures Ordered: 11/14/2023 CLOSE ENCOUNTER PROCEDURES Routine Ordered: 11/14/2023 documented as of this encounter Visit Diagnoses Diagnosis Encounter for removal of sutures- Primary documented in this encounter Additional Health Concerns Assessment Noted Time A fall risk assessment has been complete d for the patient 04/26/2014 7:59 AM CDT documented as of this encounter Care Teams Dewatering Filtering Supervisor Relationship Specialty Start Date End Date Qian Mathur MD [address] [facility] [address] [place] [address] PCP - General Internal Medicine 08/13/23 06/06/24 documented as of this encounter
--- OUTSIDE RECORDS SUMMARY | 2024-11-07 06:59 | XMS_ITS | Encounter Summary ---
Author Organization [facility] Address [address] [address] Care Team Providers Care Sports Recruiter Name Role Phone Sona Saenz MD Primary Care Provider [phone] Encounter Details Date Type Department Care Team (Late st Contact Info) Description 06/07/2024 Patient Outreach [facility] [address] [place] [address] Sona Saenz MD [address] [address] Hospital Follow-up Scheduling Social History Tobacco Use Types Packs/Day Years [...] as of this encounter Progress Notes * Devante Garnett - 06/07/2024 8:43 AM CDT Pt was D.C from [facility] on 06/06 for PALPITATIONS, pt wants see W/Advocate this week and then will see PCP on 06/14 for HFU Future Appointments Date Time Provider Department Center 06/14/2024 3:00 PM Sona Saenz MD [facility] RASHARD ALANIS documented in this encounter Plan of Treatment Upcoming Encounters Date Type Department Care Team (Late st Contact Info) Description 11/24/2024 1:00 PM GREENHOUSE SUPERINTENDENT Procedure Surgical Procedure Visit [phone] Titus Vieyra MD [address] [facility] [address] [place] [address] documented as of this encounter Visit Diagnoses Not on filedocumented in this encounter Additional Health Concerns Assessment Noted Time A fall risk assessment has been complete d for the patient 04/26/2014 7:59 AM CDT documented as of this encounter Care Teams Sports Recruiter Relationship Specialty Start Date End Date Sona Saenz MD [address] [facility] [address] [place] [address] PCP - General Internal Medicine 06/07/24 documented as of this encounter
--- OUTSIDE RECORDS SUMMARY | 2024-11-07 06:59 | XMS_ITS | Encounter Summary ---
Author Organization [facility] Address [address] [place] [address] Care Team Providers Care Painter Apprentice Name Role Phone Qian Mathur MD Primary Care Provider [phone] Encounter Details Date Type Department Care Team (Latest Contact Info) Description 11/13/2023 10:00 AM HYDRAULIC CORRUGATING MACHINE OPERATOR [facility] Lab [facility] [address] [place], [place] [id number] Urticarial vasculitis Social History Tobacco Use Types [...] st Contact Info) Description 11/24/2024 1:00 PM HYDRAULIC CORRUGATING MACHINE OPERATOR Procedure Surgical Procedure Visit [phone] Titus Vieyra MD [facility] [address] [place] [address] documented as of this encounter Procedures Procedure Name Priority Date/Time Associated Diagnosis Comments KRISTA COMPREHENSIVE PANEL Routine 11/13/19 10:20 AM HYDRAULIC CORRUGATING MACHINE OPERATOR Urticarial vasculitis ANTICARDIOLIPIN ANTIBODIES (JAIME), IGA, QUANTITATIVE Routine 11/13/2023 10:20 AM HYDRAULIC CORRUGATING MACHINE OPERATOR Urticarial vasculitis BETA-2 GLYCOPROTEIN I AB,G/M Routine 11/13/2023 10:20 AM HYDRAULIC CORRUGATING MACHINE OPERATOR Urticarial vasculitis BETA-2 GLYCOPROTEIN I ANTIBODIES, IGA Routine 11/13/2023 10:20 AM HYDRAULIC CORRUGATING MACHINE OPERATOR Urticarial vasculitis COMPLEMENT C4 Routine 11/13/2023 10:20 AM HYDRAULIC CORRUGATING MACHINE OPERATOR Urticarial vasculitis COMPLEMENT C3 Routine 11/13/2023 10:20 AM HYDRAULIC CORRUGATING MACHINE OPERATOR Urticarial vasculitis LUPUS ANTICOAGULANT COMP Routine 11/13/2023 10:20 AM HYDRAULIC CORRUGATING MACHINE OPERATOR Urticarial vasculitis ANTINUCLEAR ANTIBODIES, BY IFA Routine 11/13/2023 10:20 AM HYDRAULIC CORRUGATING MACHINE OPERATOR Urticarial vasculitis BETA-2 GLYCOPROTEIN I AB,G,A,M Routine 11/13/2023 10:20 AM HYDRAULIC CORRUGATING MACHINE OPERATOR Urticarial vasculitis ANTICARDIOLIPIN ANTIBODIES (JAIME), SANJAY,IGA,IGG,IGM Routine 11/13/2023 10:20 AM HYDRAULIC CORRUGATING MACHINE OPERATOR Urticarial vasculitis ANTICARDIOLIPIN AB, IGG/M, QN Routine 11/13/2023 10:20 AM HYDRAULIC CORRUGATING MACHINE OPERATOR Urticarial vasculitis documented in this encounter Results * ANTICARDIOLIPIN AB, IGG/M, QN (11/13/2023 10:20 AM HYDRAULIC CORRUGATING MACHINE OPERATOR) Cardiolipin IgG Qualitative Negative Negative 11/14/2023 11:05 AM HYDRAULIC CORRUGATING MACHINE OPERATOR [facility] Cardiolipin IgG Quantitative <1.6 U/mL 11/14/2023 11:05 AM HYDRAULIC CORRUGATING MACHINE OPERATOR [facility] Cardiolipin IgM Qualitative Negative Negative 11/14/2023 11:05 AM HYDRAULIC CORRUGATING MACHINE OPERATOR [facility] Cardiolipin IgM Quantitative 3.9 U/mL 11/14/2023 11:05 AM HYDRAULIC CORRUGATING MACHINE OPERATOR [facility] Blood Venipuncture / Unknown 11/13/2023 10:20 AM HYDRAULIC CORRUGATING MACHINE OPERATOR 11/13/2023 10:20 AM HYDRAULIC CORRUGATING MACHINE OPERATOR Sandi Oshea MD LAB BLOOD ORDERABLE S Performing Organization Address [facility] Co de Phone Number [facility] [address] [phone] * ANTICARDIOLIPIN ANTIBODIES (JAIME), IGA, QUANTITATIVE (11/13/2023 10:20 AM HYDRAULIC CORRUGATING MACHINE OPERATOR) Cardiolipin IgA Qualitative Negative Negative 11/14/2023 11:04 AM HYDRAULIC CORRUGATING MACHINE OPERATOR [facility] Cardiolipin IgA Quantitative <2.0 U/mL 11/14/2023 11:04 AM HYDRAULIC CORRUGATING MACHINE OPERATOR [facility] Blood Venipuncture / Unknown 11/13/2023 10:20 AM HYDRAULIC CORRUGATING MACHINE OPERATOR 11/13/2023 10:20 AM HYDRAULIC CORRUGATING MACHINE OPERATOR Sandi Oshea MD LAB BLOOD ORDERABLE S Performing Organization Address City/[facility] Co de Phone Number [facility] [address] [phone] * BETA-2 GLYCOPROTEIN I AB,G/M (11/13/2023 10:20 AM HYDRAULIC CORRUGATING MACHINE OPERATOR) Beta-2 Glycoprotein IgG Qualitative Negative Negative 11/14/2023 11:05 AM HYDRAULIC CORRUGATING MACHINE OPERATOR [facility] Beta-2 Glycoprotein IgG Quantitative <1.4 U/mL 11/14/2023 11:05 AM HYDRAULIC CORRUGATING MACHINE [facility]PERATOR [facility] Beta-2 Glycoprotein IgM Qualitative Negative Negative 11/14/2023 11:05 AM HYDRAULIC CORRUGATING MACHINE OPERATOR [facility] Beta-2 Glycoprotein IgM Quantitative 4.1 U/mL 11/14/2023 11:05 AM HYDRAULIC CORRUGATING MACHINE OPERATOR [facility] Blood Venipuncture / Unknown 11/13/2023 10:20 AM HYDRAULIC CORRUGATING MACHINE OPERATOR 11/13/2023 10:20 AM HYDRAULIC CORRUGATING MACHINE OPERATOR Sandi Oshea MD LAB BLOOD ORDERABLE S Performing Organization Address City/[facility] Co de Phone Number [facility] [address] [phone] * BETA-2 GLYCOPROTEIN I ANTIBODIES, IGA (11/13/2023 10:20 AM HYDRAULIC CORRUGATING MACHINE OPERATOR) [facility] Beta-2 Glycoprotein IgA Qualitative Negative Negative 11/14/2023 11:22 AM HYDRAULIC CORRUGATING MACHINE OPERATOR [facility] Beta-2 Glycoprotein IgA Quantitative <2.0 U/mL 11/14/2023 11:22 AM HYDRAULIC CORRUGATING MACHINE OPERATOR [facility] 11/13/2023 10:2 0 AM HYDRAULIC CORRUGATING MACHINE OPERATOR 11/13/2023 10:20 AM HYDRAULIC CORRUGATING MACHINE OPERATOR Sandi Oshea MD LAB BLOOD ORDERABLE S Performing Organization Address [facility] de Phone Number [facility] [address] [phone] * LUPUS ANTICOAGULANT COMP (11/13/2023 10:20 AM HYDRAULIC CORRUGATING MACHINE OPERATOR) Pathologist [facility] Dilute Prothrombin Time(dPT) 31.8 0.0 - 47.6 sec 11/17/2023 12:09 PM HYDRAULIC CORRUGATING MACHINE OPERATOR [facility] ([facility]) dPT Confirm Ratio 0.93 0.00 - 1.34 Ratio 11/17/2023 12:09 PM HYDRAULIC CORRUGATING MACHINE OPERATOR [facility] ([facility]) Thrombin Time 16.2 0.0 - 23.0 sec 11/17/2023 12:09 PM HYDRAULIC CORRUGATING MACHINE OPERATOR [facility] ([facility]) PTT-LA 30.8 0.0 - 43.5 sec 11/17/2023 12:09 PM HYDRAULIC CORRUGATING MACHINE OPERATOR [facility] ([facility]) dRVVT 30.1 0.0 - 47.0 sec 11/17/2023 12:09 PM HYDRAULIC CORRUGATING MACHINE OPERATOR [facility] ([place]) Lupus Reflex Interpretation Comment 11/17/2023 12:09 PM HYDRAULIC CORRUGATING MACHINE OPERATOR [facility] ([place]) Comment:No Lupus Anticoagula nt was detected. Blood Venipuncture / Unknown 11/13/2023 10:20 AM HYDRAULIC CORRUGATING MACHINE OPERATOR 11/13/2023 10:20 AM HYDRAULIC CORRUGATING MACHINE OPERATOR Narrative [facility] ([place]) - 11/17/2023 12:09 PM HYDRAULIC CORRUGATING MACHINE OPERATOR Performed at: ??01 - [facility] [address] ??[id number] Registered Veterinary Technician: Gurvinder Smith MD, Phone: ??[phone] Sandi Oshea MD LAB BLOOD ORDERABLE S Performing Organization Address [facility] Co de Phone Number [facility] ([place]) * COMPLEMENT C4 (11/13/2023 10:20 AM HYDRAULIC CORRUGATING MACHINE OPERATOR) [facility] COMPLEMENT C4 27.0 14.0 - 44.0 mg/dL 11/14/2023 10:00 AM HYDRAULIC CORRUGATING MACHINE OPERATOR [facility] Blood Venipuncture / Unknown 11/13/2023 10:20 AM HYDRAULIC CORRUGATING MACHINE OPERATOR 11/13/2023 10:20 AM HYDRAULIC CORRUGATING MACHINE OPERATOR Sandi Oshea MD LAB BLOOD ORDERABLE S Performing Organization Address City/[facility]/ZIP Co de Phone Number [facility] [address] [place] [address] * COMPLEMENT C3 (11/13/2023 10:20 AM HYDRAULIC CORRUGATING MACHINE OPERATOR) [facility] COMPLEMENT C3 133.0 82.0 - 167.0 mg/dl 11/14/2023 10:00 AM HYDRAULIC CORRUGATING MACHINE OPERATOR [facility] Blood Venipuncture / Unknown 11/13/2023 10:20 AM HYDRAULIC CORRUGATING MACHINE OPERATOR 11/13/2023 10:20 AM HYDRAULIC CORRUGATING MACHINE OPERATOR Sandi Oshea MD LAB BLOOD ORDERABLE S [facility] [address] [phone] * KRISTA COMPREHENSIVE PANEL (11/13/2023 10:20 AM HYDRAULIC CORRUGATING MACHINE OPERATOR) KRISTA Screen Negative Negative 11/14/2023 8:03 PM HYDRAULIC CORRUGATING MACHINE OPERATOR [facility] Comment:The KRISTA Screen is ne gative for the following antibodies: dsDNA, Chromatin, Ribosomal P, SS-A, SS-B, Centromere B, [place], SmRNP, PARAEDUCATOR, SCL-70, and Neda-1 Blood Venipuncture / Unknown 11/13/2023 10:20 AM HYDRAULIC CORRUGATING MACHINE OPERATOR 11/13/2023 10:20 AM HYDRAULIC CORRUGATING MACHINE OPERATOR Sandi Oshea MD LAB BLOOD ORDERABLE S Performing Organization Address [facility] de Phone Number [facility] [address] [phone] * ANTINUCLEAR ANTIBODIES, BY IFA (11/13/2023 10:20 AM HYDRAULIC CORRUGATING MACHINE OPERATOR) Pathologist [facility] Antinuclear Antibodies, IFA Negative 11/14/2023 2:10 PM HYDRAULIC CORRUGATING MACHINE OPERATOR [facility]) Comment: ? Negative ?? <1:80 ? Borderline ??1:80 ? Positive ?? >1:80 ICAP nomenclature: AC-0 For more information about Hep-2 cell patterns use ANApatterns.org, the official website for the International Consensus on Antinuclear Antibody (KRISTA) Patterns (ICAP). Blood Venipuncture / Unknown 11/13/2023 10:20 AM HYDRAULIC CORRUGATING MACHINE OPERATOR 11/13/2023 10:20 AM HYDRAULIC CORRUGATING MACHINE OPERATOR Narrative [facility] ([place]) - 11/14/2023 2:10 PM HYDRAULIC CORRUGATING MACHINE OPERATOR Performed at: ??01 - [facility] [address] ??[id number] Registered Veterinary Technician: Martin Baker PhD, Phone: ??[phone] Sandi Oshea MD LAB BLOOD ORDERABLE S [facility]) documented in this encounter Visit Diagnoses Diagnosis Urticarial vasculitis Hypersensitivity angiitis, unspecified documented in this encounter Additional Health Concerns Assessment Noted Time A fall risk assessment has been complete d for the patient 04/26/2014 7:59 AM CDT documented as of this encounter Care Teams Painter Apprentice Relationship Specialty Start Date End Date Qian Mathur MD [address] [address] PCP - General Internal Medicine 08/13/23 06/06/24 documented as of this encounter
--- OUTSIDE RECORDS SUMMARY | 2024-11-07 06:59 | XMS_ITS | Encounter Summary ---
Author Organization [facility] Address [address] [place] [address] Care Team Providers Care Assembly Technician Name Role Phone Sona Saenz MD Primary Care Provider [phone] Encounter Details Date Type Department Care Team (Latest Contact Info) Description 06/14/2024 4:00 PM CDT Ancillary Procedure Radiology - [facility] [address] [place], [place] [id number] CHRISTY (dyspnea on exertion) Social History Tobacco Use Types Packs/Day Years [...] No 06/14/2024 documented as of this encounter Plan of Treatment Upcoming Encounters Date Type Department Care Team (Late st Contact Info) Description 11/24/2024 1:00 PM FARMWORKER [employer] Procedure Surgical Procedure Visit [phone] Titus Vieyra MD [address] [place] [address] [address] [place] [address] documented as of this encounter Procedures Procedure Name Priority Date/Time Associated Diagnosis Comments XR CHEST PA + LAT CHEST ([id number]) Routine 06/14/2024 3:59 PM CDT CHRISTY (dyspnea on exertion) documented in this encounter Results * XR CHEST PA + LAT CHEST ([id number]) (06/14/2024 3:59 PM CDT) Anatomical Region Laterality [...] documented in this encounter Visit Diagnoses Diagnosis CHRISYT (dyspnea on exertion) Other dyspnea and respiratory abnormality documented in this encounter Additional Health Concerns Assessment Noted Time A fall risk assessment has been complete d for the patient 06/14/2024 3:00 PM CDT documented as of this encounter Care Teams Assembly Technician Relationship Specialty Start Date End Date Sona Saenz MD [address] [address] PCP - General Internal Medicine 06/07/24 documented as of this encounter
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
--- OUTSIDE RECORDS SUMMARY | 2024-11-07 06:59 | XMS_ITS | Clinical Summary ---
Author Organization [facility] Address [address] [place] [address] Care Team Providers Care Remedial Reading Teacher Name Role Phone Sona Saenz MD Primary Care Provider [phone] Allergies Active Allergy Reactions Criticality Noted Date Comments Penicillins RASH Medium 11/11/2007 Medications Medication Sig Dispensed Refills Start Date End Date Status Nutritional Supplements (JUICE PLUS FIBRE OR) Take by mouth. Active Cholecalciferol (VITAMIN D) 1000 units Oral Tab Take by mouth. Active metoprolol succinate ER 25 MG Oral Tablet 24 Hr Take 25 mg by mouth daily. 06/26/2023 Active ZINC OR Use as directed in the mouth or throat. Active CALCIUM-MAGNESIUM OR Take by mouth. Active Propafenone HCl ER 225 MG Oral Capsule SR 12 Hr Take 225 mg by mouth 2 (two) times daily. 06/06/2024 Active dabigatran 150 MG Oral Cap Take 1 capsule by mouth Q12H. 06/08/2024 Active zolpidem 5 MG Oral Tab Take 1 tablet (5 mg total) by mouth nightly as needed for Sleep. 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 [address] [place] [phone] Titus Vieyra MD [facility] 10/21/2024 Telephone Gastroenterology - [facility] [address] [facility] [address] [place] [phone] Titus Vieyra MD Schedule Surgery 09/10/2024 11:30 AM INSPECTOR RAW QUARTZ Office Visit Internal Medicine - [facility] [address] [facility] [address] [place] [address] Rom Du APRN URI, acute (Primary Dx); Acute cough; Chest tightness from Last 3 Months Immunizations Name Administration Dates Next Due Covid-19 Vaccine Moderna 100 mcg/0.5 ml 10/08/20 21 FLUZONE 6 months and older P FS 0.5 ml (22802) 09/02/2022,08/09/2021,08/04/2020 Flucelvax 0.5 ml Quad MDV 6m+ (98527) 08/04/2023 HEP A/HEP B Combined 10/15/2011,03/29/2011,02/25 Pneumococcal Conjugate Pcv20 08/04/2023 TDAP 02/25/2011 Zoster Vaccine Recombinant A djuvanted (Shingrix) 08/16/2024,04/14/2024 Social History Tobacco Use Types Packs/Day Years [...] PM CDT Sexual Orientation Not on file Last Filed Vital Signs Vital Sign Reading Time Taken Comments Blood Pressure 120/62 09/10/2024 11:33 AM INSPECTOR RAW QUARTZ Pulse 60 09/10/2024 11:33 AM INSPECTOR RAW QUARTZ Temperature 36.7 ??C (98.1 ??F) 09/10/2024 11:[address] Respiratory Rate 16 10/19/2023 10:03 AM INSPECTOR RAW QUARTZ Oxygen Saturation 99% 09/10/2024 11:33 AM INSPECTOR RAW QUARTZ Inhaled Oxygen Concentration - - Weight 70.3 kg (155 lb) 09/10/2024 11:33 AM INSPECTOR RAW QUARTZ Height 167.6 cm (5' 6 ) 03/09/2024 3:42 PM CDT Body Mass Index 25.02 03/09/2024 3:42 PM CDT Plan of Treatment Upcoming Encounters Date Type Department Care Team (Late st Contact Info) Description 11/24/2024 1:00 PM INSPECTOR RAW QUARTZ Procedure Surgical Procedure Visit [phone] Titus Vieyra MD [address] [facility] [address] [place] [address] Health Maintenance Due Date Last Done Comments Colonography 1960 DNA-FIT (Cologuard) 1960 FIT/FOBT Colorectal Screening 1960 Flexible Sigmoidoscopy 01/11/2018 01/11/2013 Mammogram 10/29/2022 10/29/2021, 12/26, 10/28/2014 (Declined), Additional history exists Colonoscopy 03/01/2024 03/01/2019, 0206/2016, 05/04/2015, Additional history exists Colorectal Cancer Screening 03/01/2024 COVID-19 Vaccine (2023- 5 season) 2024 09/02/2022, 10/08/2021, 01/25/2021 Influenza Vaccine (#1) 2024 3, 09/02/2022, 08/09/2021, Additional history exists Pap Smear,3 Years 10/30/2024 10/30/2021 Annual Depression Screen 06/14/2025 06/14/2024, 0301/2019 Fall Risk Screening 06/14/2025 06/14/2024, 4 MA Annual Wellness Visit 06/14/2025 06/14/2024 Pneumococcal Vaccine: 65+ Years Completed DEXA Scan Completed 12/10/2023, 04/21/2020 Zoster Vaccines Completed 08/16/2024, 04/14/2024 Goals Goal Patient Goal Type Associated Problems Recent Progress Patient-Stated? Author Colonoscopy Instructions Care Plan DMG COLONOSCOPY PROBLEM TEMPLATE No Monique Macedo Procedures Procedure Name Priority Date/Time Associated Diagnosis Comments OR PPPS, SUBSEQ VISIT Routine 06/14/2024 3:40 PM CDT Routine general medical examination at a [facility] facility YASMIN SCREEN MAMMOGRAM, DIGITAL ([id number]=[id number]) Routine 01/15/2019 8:02 AM CDT Encounter for screening mammogram for malignant neoplasm of breast COLONOSCOPY STOMA DX INCLUDING COLLJ SPEC SPX Routine 05/04/2015 7:05 AM CDT Personal history of colonic polyps from Last 3 Months or Most Recently Relevant to Health Maintenance Results * YASMIN SCREEN MAMMOGRAM, DIGITAL ([id number]) (01/15/2019 8:02 AM CDT) Anatomical Region Laterality Modality Breast Bilateral Mammography 01/19/2019 8:52 AM CDT Narrative 01/19/2019 8:53 AM CDT DATE OF SERVICE: 01.15.2019 BILATERAL SCREENING MAMMOGRAM WITH CAD WITH TOMOSYNTHESIS CLINICAL INDICATION: ??Screening mammogram on a 58 years old woman. COMPARISON: ??12/18/2016, 11/17/2015, 11/15/2014, 10/25/2013 TECHNIQUE: ?? Bilateral screening digital mammographic views with tomosynthesis. Images were checked with the [employer] CAD system. FINDINGS: ?The breasts demonstrate scattered fibroglandular densities. ??Breast density category B. There are no suspicious masses, microcalcifications or areas of architectural distortion suggestive of malignancy. Both visualized axillae are unremarkable. ?? IMPRESSION AND RECOMMENDATION No mammographic evidence of malignancy. ??If there is no palpable concern, the patient should return in 1 year for an annual screening mammogram. ANY FURTHER EVALUATION SHOULD BE BASED ON CLINICAL ASSESSMENT BI-RADS CATEGORY 1: ??NEGATIVE The Department of Radiology has informed the patient of their results by letter and will contact the patient for needed follow-up studies. BREAST CANCER RISK ASSESSMENT: A quantitative breast cancer risk assessment was performed from the patient provided data. The patient's density adjusted estimated lifetime risk of breast cancer is below the high risk threshold. This was interpreted by Yola Espinosa M.D. Jeison Orozco MD RIS MAMMO from Last 3 Months or Most Recently Relevant to Health Maintenance Additional Health Concerns Active Problems Noted Date Diagnosed Date DMG COLONOSCOPY PROBLEM TEMPLATE 10/21/2024 Care Teams Remedial Reading Teacher Relationship Specialty Start Date End Date Sona Saenz MD [address] [address] PCP - General Internal Medicine 06/07/24
--- OUTSIDE RECORDS SUMMARY | 2024-11-07 06:59 | XMS_ITS | Encounter Summary ---
Author Organization [facility] Address [address] [place] [address] Care Team Providers Care Animal Geneticist Name Role Phone Sona Saenz MD Primary Care Provider [phone] Encounter Details Date Type Department Care Team (Latest Contact Info) Description 06/14/2024 4:15 PM CDT DMG Lab Encounter Lab - [facility] [address] [place], [place] [id number] Frequent nosebleeds; Mild anemia; Petechiae; CHRISTY (dyspnea on exertion); Weight gain, abnormal; [...] as of this encounter Progress Notes * Jeny Harper - 06/14/2024 4:15 PM CDTAddended by: JENY HARPER on: 06/15/2024 07:55 AM Modules accepted: Orders documented in this encounter Plan of Treatment Upcoming Encounters Date Type Department Care Team (Late st Contact Info) Description 11/24/2024 1:00 PM BUNG REMOVER Procedure Surgical Procedure Visit [phone] Titus Vieyra MD [address] [facility] [address] [place] [address] Scheduled Orders Name Type Priority Associated Diagnoses Orde r Schedule D-DIMER LAB Routine Frequent nosebleeds Mild anemia Petechiae CHRISTY (dyspnea on exertion) Weight gain, abnormal Anticoagulant long-term use Expected: 06/15/2024 (Approximate), Expires: 06/15/2025 documented as of this encounter Procedures Procedure Name Priority Date/Time Associated Diagnosis Comments COMPLETE BLOOD COUNT (CBC) WITH DIFFERENTIAL Routine 06/14/2024 4:03 PM CDT Frequent nosebleeds Mild anemia Petechiae NT - PROPEPTIDE OF BRAIN NATRIURETIC PEPTIDE (NT-PROBNP) Routine 06/14/2024 4:03 PM CDT CHRISTY (dyspnea on exertion) FREE T4 (FREE THYROXINE) Routine 06/14/2024 4:03 PM CDT Weight gain, abnormal THYROID- STIMULATION HORMONE (TSH) Routine 06/14/2024 4:03 PM CDT Weight gain, abnormal INSULIN Routine 06/14/2024 4:03 PM CDT Weight gain, abnormal COMPLETE BLOOD COUNT (CBC) WITH DIFFERENTIAL Routine 06/14/2024 4:03 PM CDT Frequent nosebleeds Mild anemia Petechiae documented in this encounter Results * COMPLETE BLOOD COUNT (CBC) WITH DIFFERENTIAL (06/14/2024 4:03 PM CDT) [facility] WBC 4.77 4.00 - 13.00 10^3/uL 06/14/2024 7:13 PM CDT [facility] RBC 4.00 3.80 - 5.10 10^6/uL 06/14/2024 7:13 PM CDT [facility] Hemoglobin 12.4 12.0 - 16.0 g/dL 06/14/2024 7:13 PM CDT [facility] Hematocrit 37.4 34.0 - 50.0 % 06/14/2024 7:13 PM CDT [facility] MCV 93.5 81.0 - 100.0 fL 06/14/2024 7:13 PM CDT [facility] MCH 31.0 27.0 - 33.2 pg 06/14/2024 7:13 PM CDT [facility] MCHC 33.2 31.0 - 37.0 g/dL 06/14/2024 7:13 PM CDT [facility] Platelet Count 248 150 - 450 10^3/uL 06/14/2024 7:13 PM CDT [facility] RDW 13.8 11.5 - 16.0 % 06/14/2024 7:13 PM CDT [facility] MPV 11.3 7.0 - 11.5 fL 06/14/2024 7:13 PM CDT [facility] Neutrophils Absolute 2.39 1.30 - 6.70 10? 3 /??L 06/14/2024 7:13 PM CDT [facility] Lymphocytes Absolute 1.68 0.90 - 4.00 10? 3 /??L 06/14/2024 7:13 PM CDT [facility] Monocytes Absolute 0.42 0.10 - 1.00 10? 3 /??L 06/14/2024 7:13 PM CDT [facility] Eosinophils Absolute 0.22 0.00 - 0.30 10? 3 /??L 06/14/2024 7:13 PM CDT [facility] Basophils Absolute 0.06 0.00 - 0.10 10? 3 /??L 06/14/2024 7:13 PM CDT [facility] nRBC Absolute 0.000 0.000 - 0.012 10? 3 /??L 06/14/2024 7:13 PM CDT [facility] Neutrophils % 50.1 % 06/14/2024 7:13 PM CDT [facility] Lymphocytes % 35.2 % 06/14/2024 7:13 PM CDT [facility] Monocytes % 8.8 % 06/14/2024 7:13 PM CDT [facility] Eosinophils % 4.6 % 06/14/2024 7:13 PM CDT [facility] Basophils % 1.3 % 06/14/2024 7:13 PM CDT [facility] nRBC/100 WBC 0.00 % 06/14/2024 7:13 PM CDT [facility] Blood Venipuncture / Unknown 06/14/2024 4:03 PM CDT 06/14/2024 4:03 PM CDT Rom Du APRN LAB BLOOD ORDERABLES [facility] [address] [phone] * FREE T4 (FREE THYROXINE) (06/14/2024 4:03 PM CDT) Free T4 1.05 0.93 - 1.70 ng/dL 06/15/2024 1:07 PM CDT [facility] Blood Venipuncture / Unknown 06/14/2024 4:03 PM CDT 06/14/2024 4:03 PM CDT Sona Saenz MD LAB BLOOD ORDERABLES [facility] [address] [facility] [address] [phone] * THYROID- STIMULATION HORMONE (TSH) (06/14/2024 4:03 PM CDT) [facility] TSH 2.290 0.270 - 4.200 mIU/L 06/15/2024 1:07 PM CDT [facility] Comment: TSH levels vary during , depending [...] CDT Sona Saenz MD LAB BLOOD ORDERABLES [facility] 220 [facility] [address] [phone] * INSULIN (06/14/2024 4:03 PM CDT) [facility] Insulin 5.9 1.7 - 31.0 mU/L 06/15/2024 12:07 PM CDT [facility] Blood VENOUS BLOOD SPECIMEN / Unknown Venipuncture / Unknown 06/14/2024 4:03 PM CDT 06/14/2024 4:03 PM CDT Sona Saenz MD LAB BLOOD ORDERABLES [facility] [address] [facility] [address] [phone] * NT - PROPEPTIDE OF BRAIN NATRIURETIC PEPTIDE (NT-PROBNP) (06/14/2024 4:03 PM CDT) Pro-Beta Natriuretic Peptide 69 <=125 pg/mL 06/15/2024 9:01 AM CDT [facility] Blood BLOOD SPECIMEN / Unknown Venipuncture / Unknown 06/14/2024 4:03 PM CDT 06/14/2024 4:03 PM CDT Sona Saenz MD LAB BLOOD ORDERABLES Performing Organization Address City/State/[facility] Co de Phone Number [facility] [address] [phone] documented in this encounter Visit Diagnoses Diagnosis Frequent nosebleeds Mild anemia Anemia, unspecified Petechiae Spontaneous ecchymoses CHRISTY (dyspnea on exertion) Other dyspnea and respiratory abnormality Weight gain, abnormal Abnormal weight gain Anticoagulant long-term use Long-term (current) use of anticoagulants documented in this encounter Additional Health Concerns Assessment Noted Time A fall risk assessment has been complete d for the patient 06/14/2024 3:00 PM CDT documented as of this encounter Care Teams Animal Geneticist Relationship Specialty Start Date End Date Sona Saenz MD [address] [address] PCP - General Internal Medicine 06/07/24 documented as of this encounter
--- OUTSIDE RECORDS SUMMARY | 2024-11-07 06:59 | XMS_ITS | Encounter Summary ---
Author Organization [facility] Address [address] [place] [address] Care Team Providers Care College Instructor Name Role Phone Qian Mathur MD Primary Care Provider [phone] Encounter Details Date Type Department Care Team (Late st Contact Info) Description 04/14/2024 Abstract Clinical Documentation Improvement Qian Mathur MD [address] [facility] [address] [place] [address] Social History Tobacco Use Types Packs/Day Years [...] st Contact Info) Description 11/24/2024 1:00 PM ASSOCIATE VETERINARIAN Procedure Surgical Procedure Visit [phone] Titus Vieyra MD [address] [place] [address] [address] [place] [address] documented as of this encounter Visit Diagnoses Not on filedocumented in this encounter Additional Health Concerns Assessment Noted Time A fall risk assessment has been complete d for the patient 04/26/2014 7:59 AM CDT documented as of this encounter Care Teams College Instructor Relationship Specialty Start Date End Date Qian Mathur MD [address] [facility] [address] [place] [address] PCP - General Internal Medicine 08/13/23 06/06/24 documented as of this encounter
--- OUTSIDE RECORDS SUMMARY | 2024-11-07 06:59 | XMS_ITS | Summary of Care ---
Author Organization [facility] Address [address] [place] [address] Care Team Providers Care Supervisor Fitting Name Role Phone Sona Saenz MD Primary Care Provider [phone] Reason for Referral * Consult & Treatment (Routine) - Pending Review Specialty Diagnoses / Procedures Referred By Contac t Referred To Contact Cardiology Diagnoses Paroxysmal atrial fibrillation (CMD) Procedures HOLTER MONITOR EXTENDED WEAR 3-7 DAYS / 8-14 DAYS Cm Melton MD [address] [address] Referral ID Status Reason Start Date Expiration Date V isits Requested Visits Authorized [id number] Pending Review 06/08/2024 12/07/2025 1 1 Reason for Visit * Reason Comments Hospital F/U ED 06/05 for AFIB Encounter Details Date Type Department Care Team (Late st Contact Info) Description 06/08/2024 8:45 AM CDT Office Visit [facility] [address] [place] [phone] Cm Melton MD [address] [address] Paroxysmal atrial fibrillation (CMD) (Primary Dx); S/P ablation of atrial fibrillation; [facility] current use of antiarrhythmic drug; [facility] current use of anticoagulant; Palpitations; STAR (obstructive sleep apnea) Allergies Active Allergy Reactions Criticality Noted Date Comments Penicillins RASH Medium 11/11/2007 documented as of this encounter (statuses as of 06/08/2024) Medications Medication Sig Dispensed Refills Start Date End Date Status metoPROLOL succinate (Toprol XL) 25 MG 24 hr tablet Take 1 tablet by mouth daily. 90 tablet 3 06/26/2023 Active propafenone (RYTHMOL SR) 225 MG 12 hr capsule Take 1 capsule by mouth in the morning and 1 capsule in the evening. 180 capsule 3 06/06/2024 Active dabigatran (PRADAXA) 150 MG Cap Take 1 capsule by mouth every 12 hours. 60 capsule 3 06/08/2024 Active apixaBAN (Eliquis) 5 MG Tab Take 1 tablet by mouth every 12 hours. 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 [facility] current use of anticoagulant Dyspnea on exertion 03/20/2023 Paroxysmal atrial fibrillation (CMD) 03/18/2023 S/P ablation of atrial fibrillation 03/18/2023 Overview: afib ablation 2013 ([facility]) Palpitations 03/18/2023 STAR (obstructive sleep apnea) 03/18/2023 documented as of this encounter (statuses as of 06/08/2024) Resolved Problems Problem Noted Date Diagnosed Date Resolved Date Atrial fibrillation (CMD) 06/06/2024 documented as of this encounter (statuses as of 06/08/2024) Social History Tobacco Use Types Packs/Day Years Used Date Smoking Tobacco: Former Cigarettes Smokeless Tobacco: Never Alcohol Use Standard Drinks/Week Comments Yes 2 (1 standard drink = 0.6 oz pur e alcohol) Utilities Answer Date Recorded In the past 12 months has [employer], [employer], oil, or water [employer] threatened to shut off services in your home? No 06/06/2024 PHQ-2 Answer Date Recorded Initial depression screening score: 0 06/08/2024 Social Connections Answer Date Recorded How often do you see or talk to people that you care about and feel close to? (For example: talking to friends on the phone, visiting friends or family, going to orthodox or club meetings) 5 or more times a week 06/06/2024 Alcohol Use Answer Date Recorded Audit C Total Score 4 06/06/2024 Financial Resource Strain Answer Date R ecorded In the past year, have you o r any family members you live with been unable to get any of the following when it was really needed? Check all that apply. None 06/06/2024 Inadequate Housing Answer Date Recorded Social Determinants: Housing (Overall Score Help er) 0 06/25/2019 Food Insecurity Answer Date Recorded Within the past 12 months, y ou worried that your food would run out before you got money to buy more.? Never true 06/06/20 24 Within the past 12 months, t he food you bought just didn't last and you didn't have money to get more.?? Never true 06/06/20 Inadequate Housing Answer Date Recorded What is your living situation today??? I have a steady place to live 06/06/2024 Do you have problems with an y of the following??? None of the above 06/06/2024 Exercise Vital Sign Answer Date Recorde d On average, how many days pe r week do you engage in moderate to strenuous exercise (like a brisk walk)? 1 day 06/08/2024 On average, how many minutes do you engage in exercise at this level? 10 min 06/08/2024 Interpersonal Safety Answer Date Record ed How often does anyone, carito resendiz family and friends, physically hurt you??? Never 06/05/2024 How often does anyone, carito resendiz family and friends, insult or talk down to you? Never 06/05/2024 How often does anyone, carito resendiz family and friends, threaten you with harm??? Never 06/05/2024 How often does anyone, carito resendiz family and friends, scream or curse at you??? Never 06/05/2024 Transportation Needs Answer Date Record ed In the past 12 months, has l ack of reliable transportation kept you from medical appointments, meetings, work or from getting things needed for daily living??? No 06/06/2024 Sex and Gender Information Value Date Recorded Sex Assigned at Not on file Gender Identity Not on file Sexual Orientation Not on file Job Start Date Occupation Industry Not on file Not on file Not on file documented as of this encounter Last Filed Vital Signs Vital Sign Reading Time Taken Comments Blood Pressure 120/70 06/08/2024 8:46 AM CDT Pulse 61 06/08/2024 8:46 AM CDT Temperature - - Respiratory Rate - - Oxygen Saturation 98% 06/08/2024 8:46 AM CDT Inhaled Oxygen Concentration - - Weight 70 kg (154 lb 5.2 oz) 06/08/2024 8:46 AM CDT Height 167.6 cm (5' 6 ) 06/08/2024 8:46 AM CDT Body Mass Index 24.91 06/08/2024 8:46 AM CDT documented in this encounter Functional Status Functional Status Response Date of Assess ment Do you have serious difficul ty walking or climbing stairs? No 06/06/2024 Do you have difficulty dressing or bathing? No 06/06/2024 Because of a physical, menta l, or emotional condition, do you have difficulty doing errands alone? No 06/06/2024 Cognitive Status Response Date of Assessm ent Because of a physical, menta l, or emotional condition, do you have serious difficulty concentrating, remembering or making decisions? No 06/06/2024 documented as of this encounter Ordered Prescriptions Prescription Sig Dispensed Refills Start Date End Da te dabigatran (PRADAXA) 150 MG Cap Take 1 capsule by mouth every 12 hours. 60 capsule 3 06/08/2024 documented in this encounter Progress Notes * Cm Melton MD - 06/08/2024 8:41 AM CDT Images from the original note were not included. Office Note Tonya Costello : 1960 PCP: Sona Saenz MD Reason for Visit: Chief Complaint Patient presents with ??? Hospital F/U ED 06/05 for AFIB History of Present Illness: Tonya Costello is a 63 year old woman with PMHx of paroxysmal afib who underwent a successful afib ablation in 2013. She has done well until recently. Over the last few months she has noted brief intermittent palpitations. Over the past weekend she had sustained afib that lasted 20 hours. We started her on eliquis and gave her a single dose of propafenone. She converted to sinus a couple hours after the propafenone. She has felt well since discharge with no recurrent palpitations or arrhythmia. She denies CP, angina, SOB, presyncope or syncope. She did not fill her eliquis script because ofcost. EKG today shows sinus at 63, normal intervals. She is tolerating the propafenone. PMHx: Past Medical History: Diagnosis Date ??? A-fib (CMD) PSHx: History reviewed. No pertinent surgical history. Family Hx: History reviewed. No pertinent family history. Social Hx: reports that she has quit smoking. Her smoking use included cigarettes. She has never used smokeless tobacco. She reports current alcohol use of about 2.0 standard drinks of alcohol per week. She reports that she does not use drugs. Allergies: ALLERGIES: Allergen Reactions ??? Penicillins RASH Medications: Current Outpatient Medications Medication Sig Dispense Refill ??? dabigatran (PRADAXA) 150 MG Cap Take 1 capsule by mouth every 12 hours. 60 capsule 3 ??? propafenone (RYTHMOL SR) 225 MG 12 hr capsule Take 1 capsule by mouth in the morning and 1 capsule in the evening. 180 capsule 3 ??? metoPROLOL succinate (Toprol XL) 25 MG 24 hr tablet Take 1 tablet by mouth daily. 90 tablet 3 No current facility-administered medications for this visit. Review of Systems: Review of Systems Constitutional: Negative for chills, fever, weight gain and weight loss. HENT: Negative for hearing loss. Eyes: Negative for visual disturbance. Patient denies significant visual changes Cardiovascular: Positive for irregular heartbeat and palpitations. Negative for chest pain, claudication, leg swelling, near-syncope and syncope. Negative except for what's indicated in HPI Respiratory: Negative for cough and hemoptysis. Hematologic/Lymphatic: Negative for bleeding problem. Does not bruise/bleed easily. Skin: Negative for rash and suspicious lesions. Musculoskeletal: Negative for arthritis. Gastrointestinal: Negative for hematochezia and melena. Genitourinary: Negative for hematuria. Neurological: Negative for light-headedness, loss of balance and paresthesias. No localized deficits Psychiatric/Behavioral: Negative for depression and hallucinations. Allergic/Immunologic: Negative for environmental allergies. No new food allergies All other systems were reviewed and were negative. Physical Exam: Visit Vitals BP 120/70 (BP Location: LUE - Left upper extremity, Patient Position: Sitting, Cuff Size: Regular) Pulse 61 Ht 5' 6 (1.676 m) Wt 70 kg (154 lb 5.2 oz) SpO2 98% BMI 24.91 kg/m?? Gen: no acute distress Neuro: alert and oriented x 3 HEENT: symmetric Mouth: membranes moist Neck: no jvd CV: regular s1s2 no murmur Pulm: clear GI: soft, non-tender, no rebound or guarding : no cva tenderness Gait: normal Ext: no edema Skin: no rashes Data: Former [facility] patient with palpitations new to chough 03/18 ECHO 03/17: EF 60-65%; trace MR STRESS ECHO 05/18: EF 60%, no ischemia, peak HR 146 bpm 30 day monitor 04/18: NSR, atrial ectopy < 1%, PVCs 1%, atach or brief PAF < 0.1% Ca scoring CT scan: 4 Labs 08/17: LDL 105 Assessment/Plan: Tonya Costello is a 63 year old woman with PMHx of paroxysmal afib who underwent a successful afib ablation in 2013. She has done well until recently. Over the last few months she has noted brief intermittent palpitations. Over the past weekend she had sustained afib that lasted 20 hours. We started her on eliquis and gave her a single dose of propafenone. She converted to sinus a couple hours after the propafenone. She has felt well since discharge with no recurrent palpitations or arrhythmia. She denies CP, angina, SOB, presyncope or syncope. She did not fill her eliquis script because ofcost. EKG today shows sinus at 63, normal intervals. She is tolerating the propafenone. Diagnosis: Patient Active Problem List Diagnosis ??? Paroxysmal atrial fibrillation (CMD) ??? S/P ablation of atrial fibrillation ??? Palpitations ??? STAR (obstructive sleep apnea) ??? Dyspnea on exertion ??? 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 [facility] current use of anticoagulant IMPRESSION: Paroxysmal afib, recurrent episode 06/19 Afib ablation 2013 ([facility]) Propafenone Eliquis Palpitations STAR PLAN: Hosp over weekend for PAF, converted to NSR after propafenone. EKG today (propafenone) shows sinus at 63 with normal intervals CBC in 1 month (eliquis) 7 day zio in 1 month Continue propafenone Change eliquis to pradaxa (cost) If shes doing well clinically (no palpitations) and zio in Sept looks good then would switch praxada back to ecasa at that time BRENDA MELTON 6 months Kiran Melton MD 06/08/24 documented in this encounter Plan of Treatment Upcoming Encounters Date Type Department Care Team (Late st Contact Info) Description 07/08/2024 10:45 AM CDT Ancillary Procedure [facility] [address] [place] [address] Cm Melton MD [address] [phone] 12/07/2024 9:15 AM BANK CREDIT CARD COLLECTION CLERK Office Visit [facility] [address] [place] [address] Cm Melton MD [address] [phone] Pending Results Name Type Priority Associated Diagnoses Date /Time Electrocardiogram 12-Lead EKG Routine Paroxysmal atrial fibrillation (CMD) 06/08/2024 7:49 AM CDT Scheduled Orders Name Type Priority Associated Diagnoses Orde r Schedule CBC with Automated Differential Lab Routine [facility] current use of anticoagulant Expected: 07/09/2024, Expires: 09/08/2024 HOLTER MONITOR EXTENDED WEAR 3-7 DAYS / 8-14 DAYS Card Services Routine Paroxysmal atrial fibrillation (CMD) Expected: 07/09/2024, Expires: 12/09/2024 Health Maintenance Due Date Last Done Comments CT Colonography 2003 Cologuard 2003 Colonoscopy 2003 Colorectal Cancer Screen 2003 Fecal Occult Blood 2003 Sigmoidoscopy 2003 Hepatitis C Screening 2009 DTaP/Tdap/Td Vaccine (2 - Td or Tdap) 02/25/2021 02/25/2011 COVID-19 Vaccine (3 - season) 2023 10/08/2021, 01/25/2021 Traditional Medicare- Medicare Wellness Visit 11/27/2023 Shingles Vaccine (2 of 2) 06/09/2024 04/14/2024 Influenza Vaccine (#1) 2024 , 09/02/2022, 08/09/2021, Additional history exists Depression Screening 06/08/2025 06/08/2024 Breast Cancer Screening 01/08/2026 01/09/20 24, 12/09/2022, 11/08/2021, Additional history exists Hepatitis B Vaccine (For Physician/APC Discussion) Completed 10/15/2011, 03/29/2011, 02/25/2011 Pneumococcal Vaccine 65+ Completed 08/04/2023 Osteoporosis Screening Completed 12/10/2023, 2019 HPV Vaccine Aged Out No longer eligi ble based on patient's age to complete this topic Meningococcal Vaccine Aged Out No william rebeca eligible based on patient's age to complete this topic documented as of this encounter Procedures Procedure Name Priority Date/Time Associated Diagnosis Comments ELECTROCARDIOGRAM 12-LEAD Routine 2023 7:49 AM CDT Paroxysmal atrial fibrillation (CMD) documented in this encounter Visit Diagnoses Diagnosis Paroxysmal atrial fibrillation (CMD)- Primary Atrial fibrillation S/P ablation of atrial fibrillation Other postprocedural status 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
--- OUTSIDE RECORDS SUMMARY | 2024-11-07 06:59 | XMS_ITS | Encounter Summary ---
Author Organization [facility] Address [address] [place] [address] Care Team Providers Care Poly Operator Name Role Phone Sona Saenz MD Primary Care Provider [phone] Reason for Visit * Reason Onset Date Comments Anticoagulation 10/22/2024 Encounter Details Date Type Department Care Team (Late st Contact Info) Description 10/22/2024 Telephone Gastroenterology - [address] [place] [address] Titus Vieyra MD [address] [place] [address] [address] [place], [place] [id number] Anticoagulation Social History Tobacco Use Types Packs/Day Years [...] Progress Notes * Jacquelin Beckford RN - 11/03/2024 2:12 PM CST RN called office of Dr. Melton (frantz oakes) Call to office to FU on fax that was sent on 10/22/2024 for BT clearance. Spoke with Josseline. Josseline sending message to collar separator to FU on BT clearance. Josseline confirmed correct fax number [phone]. This RN faxed BT clearance request again. Will monitor for inbound faxes or incoming call from MD office. OPERATIONS SUPERINTENDENT * Jacquelin Beckford RN - 10/22/2024 2:02 PM CST Cm Melton MD [address] [place] [address] RN to monitor inbound faxes for response OPERATIONS SUPERINTENDENT * Jacquelin Beckford RN - 10/22/2024 1:46 PM CST MEDICATION CLEARANCE: Gastroenterology Dear Dr. Melton Your patient, Tonya Costello 1960 is having a Colonoscopy on 11/24/2024. Since Tonya Costello is currently on blood thinners/anti-platelet/diabetic medications, we will need to obtain clearance from you before performing his/her procedure. Is it okay for Tonya Costello to refrain from taking the following medications? Dabagatrin/Pradaxa Please confirm how many days patient can hold blood thinner Thank you, [facility] Department of Gastroenterology Ph. [phone] or FAX To Gastro RN @ [phone] This document has been reviewed with Tonya Costello and sent to his/her Collar Runner for instructions on medication stoppage before the procedure. Please return this form to Gastroenterology in a timely manner. Titus Vieyra MD [facility] Gastroenterology OPERATIONS SUPERINTENDENT documented in this encounter Plan of Treatment Upcoming Encounters Date Type Department Care Team (Late st Contact Info) Description 11/24/2024 1:00 PM GAS OPERATIONS SUPERINTENDENT Procedure Surgical Procedure Visit [phone] Titus Vieyra MD [address] [place] [address] [address] [place] [address] documented as of this encounter Goals Goal Patient Goal Type Associated Problems Recent Progress Patient-Stated? Author Colonoscopy Instructions Care Plan DM COLONOSCOPY PROBLEM TEMPLATE Monique Rhoades documented as of this encounter Visit Diagnoses Not on filedocumented in this encounter Additional Health Concerns Active Problems Noted Date Diagnosed Date DMG COLONOSCOPY PROBLEM TEMPLATE 10/21/2024 Assessment Noted Time A fall risk assessment has been complete d for the patient 06/14/2024 3:00 PM CDT documented as of this encounter Care Teams Poly Operator Relationship Specialty Start Date End Date Sona Saenz MD [address] [address] PCP - General Internal Medicine 06/07/24 documented as of this encounter
--- OUTSIDE RECORDS SUMMARY | 2024-11-07 06:59 | XMS_ITS | Encounter Summary ---
Author Organization [facility] Address [address] [place] [address] Care Team Providers Care Freelance Photographer Name Role Phone Sona Saenz MD Primary Care Provider [phone] Reason for Visit * Reason Comments Cough Ear Pain Encounter Details Date Type Department Care Team (Late st Contact Info) Description 09/10/2024 11:30 AM SEARCH STRATEGIST Office Visit Internal Medicine - [facility] [address] [facility] [address] [place] [address] Rom Du APRN [address] [facility] [address] [place], [place] [phone] URI, acute (Primary Dx); Acute cough; Chest tightness Social History Tobacco Use Types Packs/Day Years [...] Comments Blood Pressure 120/62 09/10/2024 11:33 AM SEARCH STRATEGIST Pulse 60 09/10/2024 11:33 AM SEARCH STRATEGIST Temperature 36.7 ??C (98.1 ??F) 09/10/2024 11:[address] Respiratory Rate - - Oxygen Saturation 99% 09/10/2024 11:33 AM SEARCH STRATEGIST Inhaled Oxygen Concentration - - Weight 70.3 kg (155 lb) 09/10/2024 11:33 AM SEARCH STRATEGIST Height - - Body Mass Index 25.02 03/09/2024 3:42 PM CDT documented in this encounter Functional Status Functional Status Response Date of Assess ment Hearing Problems? No 06/14/2024 Vision Problems? No 06/14/2024 Difficulty walking? No 06/14/2024 Difficulty dressing or bathing? No 06/14/2024 Problems with daily activities? No 06/14/2024 Cognitive Status Response Date of Assessm ent Memory Problems? No 06/14/2024 documented as of this encounter Progress Notes * Rom Du APRN - 09/10/2024 11:30 AM CST Subjective: Patient ID: Tonya Costello is a 63 year old female presenting for evaluation of acute cough and illness. HPI: Having chills, body aches, headaches, brain fog, exhaustion. 1 week ago was traveling in the [place]. High elevation, cold temperatures. Experiencing left ear pulling sensation, productive cough with tracy mucus. Supportive Care/OTC Meds: Mucinex, delysm, tylenol, History/Other: HISTORY: Past Medical History: Diagnosis Date [...] tattooedwas adenoma. Joaquin-colonic diverticulosis COLONOSCOPY,BIOPSY N/A 05/04/2015 COLONOSCOPY,EHSAN DONALDSON,SNARE 08/03/2012 COLONOSCOPY,REMV PARAMJITN,SNARE N/A 05/04/2015 COLONOSCPY, FLEXIBLE, PROXIMAL TO SPLENIC FLEXURE; W/DIRECTED SUBMUCOSA INJECTION(S), ANY IVTXBPOCM18/8/2012 OTHER SURGICAL HISTORY facial plastic surgery REMOVAL [...] Drug use: No Review of Systems Constitutional: Positive for chills, fatigue and fever. HENT: Positive for congestion, rhinorrhea, sinus pressure and sinus pain. Negative for sore throat and trouble swallowing. Eyes: Negative. Respiratory: Negative. Cardiovascular: Negative. Gastrointestinal: Negative. Endocrine: Negative. Genitourinary: Negative. Musculoskeletal: Positive for myalgias. Skin: Negative. Allergic/Immunologic: Negative. Neurological: Negative. Hematological: Negative. Psychiatric/Behavioral: Negative. Current Outpatient Medications Medication Sig Dispense Refill azithromycin 250 MG Oral Tab Take 2 tablets (500 mg total) by mouth daily for 1 day, THEN 1 tablet (250 mg total) daily for 4 days. 6 tablet 0 Propafenone HCl ER 225 MG Oral Capsule SR 12 Hr Take 225 mg by mouth 2 (two) times daily. dabigatran 150 MG Oral Cap Take 1 capsule by mouth Q12H. metoprolol succinate ER 25 MG Oral Tablet 24 Hr Take 25 mg by mouth daily. zolpidem 5 MG Oral Tab Take 1 tablet (5 mg total) by mouth nightly as needed for Sleep. 30 tablet 0 ZINC OR Use as directed in the mouth or throat. CALCIUM-MAGNESIUM OR Take by mouth. Nutritional Supplements (JUICE PLUS FIBRE OR) Take by mouth. Cholecalciferol (VITAMIN D) 1000 units Oral Tab Take by mouth. Allergies: Penicillins RASH Objective: 09/10/24 1133 BP: 120/62 Pulse: 60 Temp: 98.1 ??F (36.7 ??C) TempSrc: Oral SpO2: 99% Weight: 155 lb (70.3 kg) Wt Readings from Last 6 Encounters: 09/10/24 : 155 lb (70.3 kg) 06/14/24 : 159 lb (72.1 kg) 03/09/24 : 157 lb 9.6 oz (71.5 kg) 11/13/23 : 155 lb (70.3 kg) 11/10/23 : 155 lb (70.3 kg) 10/24/23 : 156 lb (70.8 kg) Body mass index is 25.02 kg/m??. Physical Exam Physical Exam Vitals reviewed. Constitutional: General: Patient is not in acute distress. Appearance: Normal appearance. Patient is not ill-appearing or toxic-appearing. HENT: Head: Normocephalic and atraumatic. Right Ear: Tympanic membrane, ear canal and external ear normal. There is no impacted cerumen. Left Ear: Tympanic membrane, ear canal and external ear normal. There is no impacted cerumen. Nose: Nose normal. No congestion or rhinorrhea. Mouth/Throat: Mouth: Mucous membranes are moist. Pharynx: Oropharynx is clear. No oropharyngeal exudate or posterior oropharyngeal erythema. Eyes: Extraocular Movements: Extraocular movements intact. Conjunctiva/sclera: Conjunctivae normal. Pupils: Pupils are equal, round, and reactive to light. Cardiovascular: Rate and Rhythm: Normal rate and regular rhythm. Pulses: Normal pulses. Heart sounds: Normal heart sounds. No murmur heard. Pulmonary: Effort: No respiratory distress. Breath sounds: Normal breath sounds. No wheezing or rhonchi. Chest: Chest wall: No tenderness. Abdominal: General: Bowel sounds are normal. There is no distension. Palpations: Abdomen is soft. Tenderness: There is no abdominal tenderness. There is no right CVA tenderness or left CVA tenderness. Musculoskeletal: General: Normal range of motion. Cervical back: Normal range of motion and neck supple. No rigidity or tenderness. Right lower leg: No edema. Left lower leg: No edema. Lymphadenopathy: Cervical: No cervical adenopathy. Skin: General: Skin is warm and dry. Findings: No erythema or rash. Neurological: General: No focal deficit present. Mental Status: Patient is alert and oriented to person, place, and time. Mental status is at baseline. Motor: No weakness. Psychiatric: Mood and Affect: Mood normal. Behavior: Behavior normal. Thought Content: Thought content normal. Judgment: Judgment normal. Assessment & Plan: Diagnoses and all orders for this visit: URI, acute Acute cough Chest tightness Physical exam stable. Vital signs stable. Lung sounds clear with deep unlabored respirations. Treat for URI with azithromycin for 5 days. May take mucinex, flonase, saline nasal spray, neti pot, and use a home humidifier for supportive care. Continue to rest, hydrate well with water, and eat healthy meals. - azithromycin 250 MG Oral Tab; Take 2 tablets (500 mg total) by mouth daily for 1 day, THEN 1 tablet (250 mg total) daily for 4 days. Meds This Visit: Requested Prescriptions Signed Prescriptions Disp Refills azithromycin 250 MG Oral Tab 6 tablet 0 Sig: Take 2 tablets (500 mg total) by mouth daily for 1 day, THEN 1 tablet (250 mg total) daily for4 days. Imaging & Referrals: None 30 minutes total time spent in pre-visit work, reviewing history/test results, face to face time, education/counseling, placing orders, documentation, independent results interpretation, and coordination of care. Patient requires frequent health visits to maintain health optimization and has a longitudinal care relationship with Internal medicine. CH STRATEGIST documented in this encounter Plan of Treatment Upcoming Encounters Date Type Department Care Team (Late st Contact Info) Description 11/24/2024 1:00 PM SEARCH STRATEGIST Procedure Surgical Procedure Visit [phone] Titus Vieyra MD [address] [place] [address] [address] [place] [address] documented as of this encounter Visit Diagnoses Diagnosis URI, acute- Primary Acute upper respiratory infections of unspecified site Acute cough Chest tightness Other chest pain documented in this encounter Additional Health Concerns Assessment Noted Time A fall risk assessment has been complete d for the patient 06/14/2024 3:00 PM CDT documented as of this encounter Care Teams Freelance Photographer Relationship Specialty Start Date End Date Sona Saenz MD [address] [address] PCP - General Internal Medicine 06/07/24 documented as of this encounter
--- OUTSIDE RECORDS SUMMARY | 2024-11-07 06:59 | XMS_ITS | Encounter Summary ---
Author Organization [facility] Address [address] [place] [address] Care Team Providers Care Brim Setter Name Role Phone Qian Mathur MD Primary Care Provider [phone] Reason for Visit * Reason Comments Full Skin Exam Encounter Details Date Type Department Care Team (Latest Contact Info) Description 01/13/2024 10:45 AM CDT Office Visit Dermatology - [address] [phone] Olinda Mcmanus PA-C [address] [facility] [place], [place] [phone] Inflamed skin tag (Primary Dx); Seborrheic keratosis; History of basal cell carcinoma of skin; Lentigines; Multiple benign melanocytic nevi of both upper extremities, both lower extremities, and trunk; Angioma of skin; Folliculitis; Dry skin dermatitis; Post-inflammatory hyperpigmentation Social History Tobacco Use Types Packs/Day Years [...] as of this encounter Progress Notes * Olinda Mcmanus PA-C - 01/13/2024 10:45 AM CDT HPI: Tonya Costello is a 63 year old female. Patient presents with: Full Skin Exam History: Pt present today for FSE, No concerns today. Pt had urticarial vascularitis at end of September. This followed a bad case of shingles that occurred in July, shingles affected right hip and right back. Pt does feel itchy irritated bumps that will come and go in scalp. She also has dry itchy skin on back, uses minh moisturizer. Pt also has irritated growths in armpit she would like removed. Location: face, back, legs Condition present for: Many months Lesion(s) can be asymptomatic. Severity (Scale 1-mild to 10 severe): 2 Previous treatments include: None Personal HX of Skin Cancer: Yes BCC superficial Left lower anterior leg- Imiquimod treatment, 12/31/22 Personal HX AK's: No Personal HX of Malignant Melanoma: No Family HX of Skin Cancer / Malignant Melanoma: No Other history: no further skin c/o Last Office Visit fse, 11/07/2023 excision JH ROS of the following were done and are negative: Constitutional, Eyes, Ears, Nose, Mouth, Throat, Cardiovascular, Respiratory, GI, Genitourinary, Musculoskeletal, Psychiatric, Endocrine, Allergic/Immunologic. PHYSICAL EXAM: Weight: BP: Skin exam performed as follows: Type 2 skin. Mood appropriate Alert and Oriented X 3. Well developed, well nourished in no distress. General appearance: Normal Head including face: Normal Eyes: conjunctiva and lids: Normal Mouth: Lips, mucosa: Normal Neck: Normal Chest-breast/axillae: Normal Back: Normal Abdomen: Normal Cardiovascular: Exam of peripheral vascular system by observation for swelling, varicosities, edema: Normal Genitalia: groin, buttocks: Normal Extremities: digits/nails (clubbing): Normal Eccrine and Apocrine glands: Normal Right upper extremity: Normal Left upper extremity: Normal Right lower extremity: Normal Left lower extremity: Normal Skin: Scalp and body hair: See below Pt deferred exam of breasts, groin, buttocks: No Other physical findings: 1.Lt anterior lower leg: well healed scar, clear of recurrent BCC. Waxy, tracy stucco plaques surrounding scar. 2. Waxy, stucco plaques on face, trunk, arms and legs. 3. Nevi present on face, neck, chest, back, arms and legs with regular borders, symmetry and pigmentation. 4. Flat tracy macules present face, trunk, arms and legs. 5. Vascular erythematous macules and papules present on trunk, arms and legs. 6. Lt upper back: well healed scar, secondary to cyst remova. 7. Inflamed, pedunculated papules x 3 in right axilla. 8. 1-2 resolving follicular based papules in scalp. 9. Dry skin with excoriation on back. 10. Post-inflammatory hyperpigmentation on right hip and right lower back. ASSESSMENT & PLAN: 1. History of BCC: Lt anterior lower leg, treated 12/31/22. Advised clear today. Cryosurgery performed to surrounding SK, no charge. 2. Seborrheic Keratoses: Advised benign. No treatment necessary as non-inflamed. 3. Benign Nevi of face, neck, chest, back, arms and legs: Advised benign in appearance. Advised on ABCDE'S of melanoma, sunscreen use, monthly self skin examinations and yearly skin examinations. 4.Solar lentigines: Advised benign in appearance. 5. Angiomas of skin: Advised benign. 6. History of epidermal cyst: healed well. 7. Inflamed Skin tags: Advised as inflamed on removal with cryosurgery. Cryosurgery performed to a total of 3 lesions in 2 freeze/thaw cycles. Counseled on post-care and blistering. Advised on good sunscreen protection. Post-care instruction sheet given. May take 4 weeks for lesions to resolve. Advised may need more than one treatment. Advised to f/u if not resolved after 4 weeks. Pt understands. Time-out performed at 10:55 AM ( time stamp) Patient verified Procedure verified Site verified Allergies and Anticoagulation use verified Consent verified 8. Scalp folliculitis: mild Begin OTC neutrogena t/vahe shampoo until resolved then stop and restart prn. 9. Dry skin dermatitis: advised Begin OTC CeraVe itch relief cream daily to skin. 10. Post-inflammatory hyperpigmentation: secondary to shingles. Will fade slowly with time. Pt undestands. Requested Prescriptions No prescriptions requested or ordered in this encounter PATIENT EDUCATION: Skin care reviewed. Sun avoidance, protection and SSE reviewed. Questions answered, Risks/Benefits alternatives discussed w/ patient. Scar, infection, bleeding, pain purpura, recurrence. Pt understands. F/U yearly or sooner prn 1.) Patient was asked about new and changing moles. Yes 2.) Patient received a complete physical skin examination: Yes 3.) Patient was counseled to perform a monthly self skin examination: Yes Scribed By: Olinda Mcmanus PA-C ID#[id number] documented in this encounter Plan of Treatment Upcoming Encounters Date Type Department Care Team (Late st Contact Info) Description 11/24/2024 1:00 PM SENIOR IT PROJECT MANAGER Procedure Surgical Procedure Visit [phone] Titus Vieyra MD [address] [place] [address] [address] [place] [address] Scheduled Orders Name Type Priority Associated Diagnoses Orde r Schedule OFFICE/OUTPT VISIT,EST,LEVL III PROCEDURES Routine Seborrheic keratosis History of basal cell carcinoma of skin Lentigines Multiple benign melanocytic nevi of both upper extremities, both lower extremities, and trunk Angioma of skin Folliculitis Dry skin dermatitis Post-inflammatory hyperpigmentation Ordered: 01/13/2024 REMOVAL OF SKIN TAGS PROCEDURES Routine Inflamed skin tag Ordered: 01/13/2024 documented as of this encounter Visit Diagnoses Diagnosis Inflamed skin tag- Primary Unspecified hypertrophic and atrophic condition of skin Seborrheic keratosis Other seborrheic keratosis History of basal cell carcinoma of skin Personal history of other malignant neoplasm of skin Lentigines Other dyschromia Multiple benign melanocytic nevi of both upper extremities, both lower extremities, and trunk Angioma of skin Hemangioma of skin and subcutaneous tissue Folliculitis Other specified disease of hair and hair follicles Dry skin dermatitis Contact dermatitis and other eczema due to other specified agent Post-inflammatory hyperpigmentation Dyschromia, unspecified documented in this encounter Additional Health Concerns Assessment Noted Time A fall risk assessment has been complete d for the patient 04/26/2014 7:59 AM CDT documented as of this encounter Care Teams Brim Setter Relationship Specialty Start Date End Date Qian Mathur MD [address] [address] PCP - General Internal Medicine 08/13/23 06/06/24 documented as of this encounter
--- OUTSIDE RECORDS SUMMARY | 2024-11-07 06:59 | XMS_ITS | Summary of Care ---
Author Organization [facility] Address [address] [place] [id number] Care Team Providers Care Winding Rack Operator Name Role Phone Sona Saenz MD Primary Care Provider [phone] Reason for Visit * Reason Comments Palpitations Encounter Details Date Type Department Care Team (Late st Contact Info) Description 06/05/2024 11:07 PM CDT - 06/06/2024 5:30 PM CDT Hospital Encounter [facility] [address] [place] [address] Kendrick Turner MD [address] [place] [address] Bhavik Valero MD [address] [place] [address] [id number] Courtney Kahn DO [address] [place] [id number] Rosemary Vale RN Baig, Mirza A, MD [address] [place] [address] Edwige Bright RN Cortez, William A, [place] [address] Tyree Perea Erin E, RN Kelly, Abby Walters, Jovanna Costa, [facility] Bessie Segundo, Isiah Grullon, Cm Shafer MD [address] [address] Discharge Disposition: Home or Self Care Allergies Active Allergy Reactions Criticality Noted Date Comments Penicillins RASH Medium 11/11/2007 documented as of this encounter (statuses as of 06/06/2024) Medications Medication Sig Dispensed Refills Start Date End Date Status metoPROLOL succinate (Toprol XL) 25 MG 24 hr tablet Take 1 tablet by mouth daily. 90 tablet 3 06/26/2023 Active aspirin (ECOTRIN) 81 MG EC tablet Take 81 mg by mouth daily. 06/06/2024 Discontinued( Stop Taking at Discharge) documented as of this encounter (statuses as of 06/06/2024) Active Problems Problem Noted Date Diagnosed Date Atrial fibrillation (CMD) 06/06/2024 Dyspnea on exertion 03/20/2023 Paroxysmal atrial fibrillation (CMD) 03/18/2023 S/P ablation of atrial fibrillation 03/18/2023 Overview: afib ablation 2013 ([place]) Palpitations 03/18/2023 STAR (obstructive sleep apnea) 03/18/2023 documented as of this encounter (statuses as of 06/06/2024) Social History Tobacco Use Types Packs/Day Years Used Date Smoking Tobacco: Former Cigarettes Smokeless Tobacco: Never Tobacco Cessation:Counseling Given: Not Answered Alcohol Use Standard Drinks/Week Comments Yes 2 (1 standard drink = 0.6 oz pur e alcohol) Utilities Answer Date Recorded In the past 12 months has [employer], gas, oil, or water [employer] threatened to shut off services in your home? No 06/06/2024 PHQ-2 Answer Date Recorded Initial depression screening score: 0 06/06/2024 Social Connections Answer Date Recorded How often do you see or talk to people that you care about and feel close to? (For example: talking to friends on the phone, visiting friends or family, going to baptist or club meetings) 5 or more times [...] money to get more.?? Never true 06/06/20 24 Inadequate Housing Answer Date Recorded What is your living situation today??? I have a steady place to live 06/06/2024 Do you have problems with an y of the following??? None of the above 06/06/2024 Interpersonal Safety Answer Date Record ed How [...] Sign Reading Time Taken Comments Blood Pressure 104/66 06/06/2024 3:21 PM CDT Pulse 65 06/06/2024 3:21 PM CDT Temperature 36.7 ??C (98.1 ??F) 06/06/2024 3:21 PM CD T Respiratory Rate 16 06/06/2024 3:21 PM CDT Oxygen Saturation 99% 06/06/2024 3:21 PM CDT Inhaled Oxygen Concentration - - Weight 71.7 kg (158 lb 1.1 oz) 06/06/2024 2:47 A M CDT Height 167.6 cm (5' 6 ) 06/06/2024 2:47 AM CDT Body Mass Index 25.51 06/06/2024 2:47 AM CDT documented in this encounter Functional [...] No 06/06/2024 documented as of this encounter Discharge Instructions * Discharge Instructions* Judy Roldan RN - 06/06/2024 1:42 PM CDT Care Management/Social Work Discharge Arrangements: No need for help at home was identified during your hospital stay. If you feel you need more help please contact your primary care provider for additional resources. * Discharge Instr - Activity* Abby Chauhan RN - 06/06/2024 4:27 PM CDT Advance activity as tolerated * Discharge Instr - Diet* Abby Chauhan RN - 06/06/2024 4:27 PM CDT Heart healthy * Attachments The following attachments cannot be sent through Care Everywhere. * APIXABAN (SWEDISH) * PROPAFENONE HYDROCHLORIDE ORAL TABLET (SWEDISH) * Atrial Fibrillation, Discharge Instructions for (Nauruan) documented in this encounter Progress Notes * Cm Melton MD - 06/06/2024 1:57 PM CDT Cards Addendum: Pt converted to NSR after single dose of propafenone EKG at 3pm Okay to go home later today Home meds: Eliquis 5 bid Rythmol SR 225 bid Toprol XL 25 daily She needs a repeat EKG from our office on Friday or Friday 7 day dannielleo monitor from our office in 3-4 weeks BRENDA MELTON 6-8 weeks Yassine DEVI documented in this encounter H&P Notes * Courtney Kahn DO - 06/06/2024 8:48 AM CDT [facility] History and Physical Chief Complaint palpitations PCP: Sona Saenz MD History Of Present Illness Tonya Costello is a 63 year old female presenting with palpitations. With history of a fib s/p ablation over 10 years ago. Starting having palpitations about a day ago. Reports. symptoms felt similar her a fib. also had intermittent chest discomfort, which has resolved. Today is feeling better. No chest pain. No sob. No palpitations Past Medical History Past Medical History: Diagnosis Date A-fib (CMD) Surgical History History reviewed. No pertinent surgical history. Social History Social History Tobacco Use Smoking status: Former Types: Cigarettes Smokeless tobacco: Never Vaping Use Vaping status: never used Substance Use Topics Alcohol use: Yes Alcohol/week: 2.0 standard drinks of alcohol Types: 2 Glasses of wine per week Drug use: Never Family History Denies cad Allergies ALLERGIES: Penicillins Medications Current Facility-Administered Medications Medication Dose Route Frequency Provider Last Rate Last Admin dilTIAZem (CARDIZEM) 125 mg/125 mL in sodium chloride infusion Solution 10 mg/hr Intravenous Continuous TurnerKendrick membreno MD Stopped at 06/06/24 0558 aspirin (ECOTRIN) enteric coated tablet 81 mg 81 mg Oral Daily Bhavik Valero MD metoPROLOL succinate (TOPROL-XL) ER tablet 25 mg 25 mg Oral Daily Bhavik Valero MD sodium chloride 0.9 % flush bag 25 mL 25 mL Intravenous PRN Bhavik Valero MD sodium chloride 0.9 % injection 2 mL 2 mL Intracatheter 2 times per day Bhavik Valero MD sodium chloride (NORMAL SALINE) 0.9 % bolus 500 mL 500 mL Intravenous PRN Bhavik Valero MD enoxaparin (LOVENOX) injection 40 mg 40 mg Subcutaneous Daily Bhavik Valero MD acetaminophen (TYLENOL) tablet 650 mg 650 mg Oral Q4H PRN Bhavik Valero MD Or acetaminophen (TYLENOL) suppository 650 mg 650 mg Rectal Q4H PRN Bhavik Valero MD Prior to Admission medications Medication Sig Start Date End Date Taking? Authorizing Provider aspirin (ECOTRIN) 81 MG EC tablet Take 81 mg by mouth daily. Provider, Outside metoPROLOL succinate (Toprol XL) 25 MG 24 hr tablet Take 1 tablet by mouth daily. 06/26/23 Cm Melton MD Review of Systems Review of Systems Constitutional: Negative for chills and fever. HENT: Negative for sore throat. Eyes: Negative for visual disturbance. Respiratory: Negative for cough and shortness of breath. Gastrointestinal: Negative for abdominal pain, nausea and vomiting. Genitourinary: Negative for dysuria. Musculoskeletal: Negative for back pain. Skin: Negative for rash. Neurological: Negative for dizziness and weakness. Psychiatric/Behavioral: Negative for agitation. Physical Exam Vitals: 06/06/24 0742 BP: Pulse: 88 Resp: Temp: Physical Exam HENT: Head: Normocephalic. Mouth/Throat: Mouth: Mucous membranes are moist. Neck: Neck supple. Eyes: Extraocular Movements: Extraocular movements intact. Cardiovascular: Heart sounds: Normal heart sounds. Pulmonary: Breath sounds: Normal breath sounds. Abdominal: General: Abdomen is flat. Bowel sounds are normal. Palpations: Abdomen is soft. Musculoskeletal: Right lower leg: No edema. Left lower leg: No edema. Skin: General: Skin is warm. Neurological: General: No focal deficit present. Mental Status: She is alert and oriented to person, place, and time. Mental status is at baseline. Psychiatric: Behavior: Behavior normal. Labs Recent Results (from the past 24 hour(s)) Electrocardiogram 12-Lead Collection Time: 06/05/24 11:07 PM Result Value Ref Range Ventricular Rate EKG/Min (BPM) 119 QRS-Interval (MSEC) 68 QT-Interval (MSEC) 308 QTc 433 R [place] (Degrees) 39 T [place] (Degrees) 0 REPORT TEXT Atrial fibrillation with rapid ventricular response Septal infarct , age undetermined Abnormal ECG No previous ECGs available Electrocardiogram 12-Lead Collection Time: 06/05/24 11:07 PM Result Value Ref Range Ventricular Rate EKG/Min (BPM) 119 QRS-Interval (MSEC) 68 QT-Interval (MSEC) 308 QTc 433 R [place] (Degrees) 39 T [place] (Degrees) 0 REPORT TEXT Atrial fibrillation with rapid ventricular response Septal infarct , age undetermined Abnormal ECG No previous ECGs available Basic Metabolic Panel Collection Time: 06/05/24 11:28 PM Result Value Ref Range Fasting Status Sodium 140 135 - 145 mmol/L Potassium 3.7 3.4 - 5.1 mmol/L Chloride 109 97 - 110 mmol/L Carbon Dioxide 27 21 - 32 mmol/L Anion Gap 8 7 - 19 mmol/L Glucose 98 70 - 99 mg/dL BUN 9 6 - 20 mg/dL Creatinine 0.61 0.51 - 0.95 mg/dL Glomerular Filtration Rate >90 >=60 BUN/Cr 15 7 - 25 Calcium 9.0 8.4 - 10.2 mg/dL TROPONIN I, HIGH SENSITIVITY Collection Time: 06/05/24 11:28 PM Result Value Ref Range Troponin I, High Sensitivity 7 <52 ng/L NT proBNP Collection Time: 06/05/24 11:28 PM Result Value Ref Range NT-proBNP 130 (H) <=125 pg/mL Magnesium Collection Time: 06/05/24 11:28 PM Result Value Ref Range Magnesium 2.1 1.7 - 2.4 mg/dL Light Blue Top Collection Time: 06/05/24 11:28 PM Result Value Ref Range Extra Tube Hold for Add Ons Gold Top Collection Time: 06/05/24 11:28 PM Result Value Ref Range Extra Tube Hold for Add Ons D Dimer, Quantitative Collection Time: 06/05/24 11:28 PM Result Value Ref Range D Dimer, Quantitative <0.19 <0.57 mg/L (FEU) Thyroid Stimulating Hormone Reflex Collection Time: 06/05/24 11:28 PM Result Value Ref Range TSH 4.850 0.350 - 5.000 mcUnits/mL CBC with Automated Differential (performable only) Collection Time: 06/05/24 11:29 PM Result Value Ref Range WBC 5.1 4.2 - 11.0 K/mcL RBC 3.95 (L) 4.00 - 5.20 mil/mcL HGB 12.2 12.0 - 15.5 g/dL HCT 37.4 36.0 - 46.5 % MCV 94.7 78.0 - 100.0 fl MCH 30.9 26.0 - 34.0 pg MCHC 32.6 32.0 - 36.5 g/dL RDW-CV 13.7 11.0 - 15.0 % RDW-SD 48.4 39.0 - 50.0 fL PLT 223 140 - 450 K/mcL NRBC 0 <=0 /100 WBC Neutrophil, Percent 46 % Lymphocytes, Percent 40 % [place], Percent 8 % Eosinophils, Percent 5 % Basophils, Percent 1 % Immature Granulocytes 0 % Absolute Neutrophils 2.3 1.8 - 7.7 K/mcL Absolute Lymphocytes 2.0 1.0 - 4.0 K/mcL Absolute Monocytes 0.4 0.3 - 0.9 K/mcL Absolute Eosinophils 0.3 0.0 - 0.5 K/mcL Absolute Basophils 0.0 0.0 - 0.3 K/mcL Absolute Immature Granulocytes 0.0 0.0 - 0.2 K/mcL Basic Metabolic Panel Collection Time: 06/06/24 4:50 AM Result Value Ref Range Fasting Status Sodium 139 135 - 145 mmol/L Potassium 3.7 3.4 - 5.1 mmol/L Chloride 109 97 - 110 mmol/L Carbon Dioxide 27 21 - 32 mmol/L Anion Gap 7 7 - 19 mmol/L Glucose 93 70 - 99 mg/dL BUN 7 6 - 20 mg/dL Creatinine 0.60 0.51 - 0.95 mg/dL Glomerular Filtration Rate >90 >=60 BUN/Cr 12 7 - 25 Calcium 8.8 8.4 - 10.2 mg/dL CBC with Automated Differential (performable only) Collection Time: 06/06/24 4:50 AM Result Value Ref Range WBC 4.7 4.2 - 11.0 K/mcL RBC 4.04 4.00 - 5.20 mil/mcL HGB 12.5 12.0 - 15.5 g/dL HCT 38.4 36.0 - 46.5 % MCV 95.0 78.0 - 100.0 fl MCH 30.9 26.0 - 34.0 pg MCHC 32.6 32.0 - 36.5 g/dL RDW-CV 13.9 11.0 - 15.0 % RDW-SD 48.9 39.0 - 50.0 fL PLT 218 140 - 450 K/mcL NRBC 0 <=0 /100 WBC Neutrophil, Percent 45 % Lymphocytes, Percent 40 % [place], Percent 9 % Eosinophils, Percent 5 % Basophils, Percent 1 % Immature Granulocytes 0 % Absolute Neutrophils 2.1 1.8 - 7.7 K/mcL Absolute Lymphocytes 1.9 1.0 - 4.0 K/mcL Absolute Monocytes 0.4 0.3 - 0.9 K/mcL Absolute Eosinophils 0.2 0.0 - 0.5 K/mcL Absolute Basophils 0.0 0.0 - 0.3 K/mcL Absolute Immature Granulocytes 0.0 0.0 - 0.2 K/mcL Imaging XR CHEST PA OR AP 1 VIEW Final Result 1. Findings consistent with obstructive airways disease. 2. Mild perihilar interstitial edema may be exaggerated by AP technique, but given the normal heart size, can be seen with reactive airways disease/bronchitis. 3. Small amount of subsegmental atelectasis or scarring without lung opacity concerning for consolidation. Electronically Signed by: DHEEARJ COHN M.D. Signed on: 06/05/2024 11:39 PM Workstation ID: [id number] Diagnostics Assessment and Plan Tonya Costello is a 63 year old female presenting with palpitations. With A fib with rvr history of a fib s/p ablation over 10 years ago. D dimer ok, tsh ok Trop ok. Bnp slightly up Dilt drip-now weaned off bb S/p Lovenox Cards consulted DVT proph-lovenox Code Status Code Status: Not on file Courtney Kahn DO 06/06/2024 documented in this encounter Consult Notes * Cm Melton MD - 06/06/2024 9:26 AM CDTAssociated Order(s): IP CONSULT TO CARDIOLOGY CARDIOLOGY CONSULT NAME: Tonya Costello - ROOM: [address] [place] [address] - - Age: [age] year old - : 1960 Date of Admission: 06/05/2024 11:07 PM Admission Diagnosis: Atrial fibrillation (CMD) [I48.91] Atrial fibrillation with rapid ventricular response (CMD) [I48.91] Chief Complaint: asked to see pt for PAF with RVR / palpitations History of Present Illness: 63 yo F who I follow in the office. She has a history of PAF and has done well since she underwent an afib ablation in 2013. She had sustained palpitations starting on friday afternoon. She came to the ER on friday and was found to be in afib with RVR. She was given lovenox in the ER last night. She remains in afib with HR 110-120 bpm. Stress echo 05/18 showed normal LVEF and no ischemia. ROS: A ten point review of systems was performed and notable for sustained palpitations starting Friday. She denies angina, CP, SOB, presyncope or syncope. She denies TIA or stroke like symptoms. She denies fevers or chills or new rashes. The rest of the systems were reviewed and were negative. PMH: Past Medical History: Diagnosis Date A-fib (CMD) PSH: History reviewed. No pertinent surgical history. 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 metoPROLOL succinate (Toprol XL) 25 MG 24 hr tablet Take 1 tablet by mouth daily. 90 tablet 3 Scheduled Medication: Current Facility-Administered Medications Medication Dose Route Frequency Provider Last Rate Last Admin aspirin (ECOTRIN) enteric coated tablet 81 mg 81 mg Oral Daily Bhavik Valero MD metoPROLOL succinate (TOPROL-XL) ER tablet 25 mg 25 mg Oral Daily Bhavik Valero MD 25 mg at 06/06/24 0912 sodium chloride 0.9 % injection 2 mL 2 mL Intracatheter 2 times per day Bhavik Valero MD enoxaparin (LOVENOX) injection 40 mg 40 mg Subcutaneous Daily Bhavik Valero MD Continuous Infusing Medication: Current Facility-Administered Medications Medication Dose Route Frequency Provider Last Rate Last Admin dilTIAZem (CARDIZEM) 125 mg/125 mL in sodium chloride infusion Solution 10 mg/hr Intravenous Continuous TurnerKendrick membreno MD Stopped at 06/06/24 0558 PRN Medication: Current Facility-Administered Medications Medication Dose Route Frequency Provider Last Rate Last Admin sodium chloride 0.9 % flush bag 25 mL 25 mL Intravenous PRN Bhavik Valero MD sodium chloride (NORMAL SALINE) 0.9 % bolus 500 mL 500 mL Intravenous PRN Bhavik Valero MD acetaminophen (TYLENOL) tablet 650 mg 650 mg Oral Q4H PRN Bhavik Valero MD Or acetaminophen (TYLENOL) suppository 650 mg 650 mg Rectal Q4H PRN Bhavik Valero MD OBJECTIVE: Vitals: 06/06/24 0525 06/06/24 0558 06/06/24 0712 06/06/24 0742 BP: 101/65 110/73 BP Location: RUE - Right upper extremity Patient Position: Supine Pulse: 82 65 73 88 Resp: 16 Temp: 97.7 ??F (36.5 ??C) TempSrc: Oral SpO2: 98% Weight: Height: Oxygen Therapy SpO2: 98 % Pulse Ox Mode: Intermittent O2 Device: None/Room air Wt Readings from Last 3 Encounters: 06/06/24 71.7 kg (158 lb 1.1 oz) 06/26/23 70.8 kg (156 lb 3.1 oz) 03/20/23 68.5 kg (151 lb) Intake/Output Summary (Last 24 hours) at 06/06/2024 0927 Last data filed at 06/06/2024 0350 Gross per 24 hour Intake 1031 ml Output -- Net 1031 ml Rhythm: afib 110 bpm Gen comfortable, no distress Neuro: intact, no deficits Neck: no jvd, no bruits HEENT: symmetric Lungs: clear no rhonchi or wheezing Heart: irreg irreg mild tachy Abdomen: soft nontender : No CVA tenderness Extremities: no sig edema The other systems were examined and were without gross abnormalities. Recent Labs 06/05/24232806/06/24 0450 WBC 5.1 4.7 HGB 12.2 12.5 MCV 94.7 95.0 PLT 223 218 Recent Labs 06/05/24232706/06/24 0450 CO2 27 27 BUN 9 7 CREATININE 0.61 0.60 GLUCOSE 98 93 MG 2.1 -- Imaging: EKG yesterday: afib at 119 bpm Stress echo 05/18: EF 60%, no ischemia ASSESSMENT/PLAN: 63 yo F with palpitations secondary to recurrent PAF Palpitations PAF with RVR, onset Friday Afib ablation 2013 Normal stress echo 2022 REC: Rate control, will continue toprol, convert iv cardizem to po cardizem Add eliquis 5 bid Propafenone 300 mg now and repeat 300 mg at 3pm Flec intolerant in the past Home when either in sinus rhythm or afib rates are controlled. Yassine DEVI documented in this encounter ED Notes * Jaqueline Veras RN - 06/06/2024 2:13 AM CDT ED TO INPATIENT ADMISSION HANDOFF: *Please review chart for additional information* SPECIAL CONSIDERATIONS: Chief Complaint Patient presents with Palpitations ED Triage Notes Judy Johnson RN 06/05/2024 23:06 Pt presents to ED with c/o afib. Pt has hx of afib and reports she has been experiencing more frequent. Pt reports around 1830 started having palpitations and chest tightness. Pt states she can usually convert herself, but today has not been able to. Pt denies SOB, dizziness, nausea, fevers. DIAGNOSIS: 1. Atrial fibrillation with rapid ventricular response (CMD) CODE STATUS: Code Status: Not on file ALLERGIES: Allergen Reactions Penicillins RASH ISOLATION: No active isolations INFECTION STATUS: No active infections OTHER INFECTIONS THAT REQUIRE STANDARD PRECAUTIONS: [x] N/A [] Bed Bugs [] HIV [] Hepatitis [] Wound with possible infection and/or controlled drainage ORIENTATION STATUS: A+Ox4 AFFECT: [x] Calm & Cooperative [] Other: AMBULATION: [x] Independently [] Standby assistance [] Cane [] Walker [] Wheelchair [] Bedridden [] Crutches [] Unknown and./or unable to assess FALL RISK: [] Yes [x] No ELIMINATION HABITS: [x] Bathroom [] PureWick/External Catheter [] Bedpan [] Incontinent [] Bedside commode [] Ochoa [] Urinal [] Unknown and/or unable to assess TELEMETRY: [x] Yes [] No OXYGEN STATUS: RA LINES, TUBES, DRAINS: PIV ACCESS: [] Inserted prior to ED arrival [x] Inserted while in ED [] N/A OCHOA: [] Placed upon ED arrival [] Chronic [] Chronic - replaced in ED [x] N/A CENTRAL VENOUS ACCESS: [] Port [] Accessed prior to ED arrival [] Accessed in ED [] PICC line [] Midline [x] N/A LIMB ALERT: [] Left [] Right [x] N/A BLOOD PRODUCTS INFUSING AT TIME OF TRANSFER TO FLOOR: [] Yes [x] No SEPSIS BUNDLE: [x] N/A SEPSIS ITEMS COMPLETED IN ED: [] Initial Lactic Acid [] Antibiotics started [] Fluid bolus started [] Frequent vital signs [] Blood Cultures x2 [] Fluid bolus finished [] Repeat Lactic Acid ED RN REQUIRED TO ATTEMPT VERBAL HANDOFF FOR PATIENTS RECEIVING SEPSIS BUNDLE LIVING SITUATION: home with OTHER: PREFERRED LANGUAGE: Nauruan PRONOUN: [] He/Him/His/Himself [x] She/Her/Hers/Herself [] They/Their/Theirs/Themself Patient identified as High Risk Patient and Contraband Search performed due to the following circumstance(s): [] Patient is suspected of or known to be under the influence. [] When a patient is suspected or known to be in possession of any item identified as Contraband. [] When a patient expresses suicidal or homicidal ideation or intent to self-harm. [] When a patient has a history of self-injurious behavior. [] When a patient has made a documented threat to a teammate. [] Other Clinical Discretion: Patient allowed to maintain possession of following belonging item, at the clinical discretion of this RN: PETITION & CERTIFICATION: [] Involuntary [] Voluntary [x] N/A ABNORMAL/OUTSTANDING LABS: Labs Reviewed NT PROBNP - Abnormal; Notable for the following components: Result Value NT-proBNP 130 (*) All other components within normal limits CBC WITH AUTOMATED DIFFERENTIAL (PERFORMABLE ONLY) - Abnormal; Notable for the following components: RBC 3.95 (*) All other components within normal limits TROPONIN I, HIGH SENSITIVITY - Normal MAGNESIUM - Normal D DIMER, QUANTITATIVE - Normal Narrative: Values < 0.50 mg/L(FEU) may be useful to help exclude DVT or PE in patients at low clinical riskfor these disorders. For patients above the age of 50, the [employer] recommends using age adjusted cutoff values. AGE X 0.01 calculates the age adjusted cutoff value in mg/L for these patient populations. CBC WITH DIFFERENTIAL Narrative: The following orders were created for panel order CBC with Automated Differential. Procedure Abnormality Status --------- ------ CBC with Automated Dif...[[id number]] Abnormal Final result Please view results for these tests on the individual orders. BASIC METABOLIC PANEL RAINBOW DRAW Narrative: The following orders were created for panel order [place] Draw Light Blue Top Collected? 1 Label; Red Top Collected? No Labels; Light Green Top Collected? No Labels; [place] Top Collected? No Labels; Gold Top Collected? 1 Label; [place] Top Collected? No Labels; [place] Top Collected? No Labels. Procedure Abnormality Status --------- ------ Light Blue Top[[id number]] In process Gold Top[[id number]] In process Please view results for these tests on the individual orders. LIGHT BLUE TOP GOLD TOP Please call ED RN for additional questions, clarification, or sensitive information: CASSIE Parsons ([id number]) * Kendrick Turner MD - 06/05/2024 11:07 PM CDT Patient : Tonya Costello Age: [age] year old Sex: female Encounter Date: 06/05/2024 Treatment Team: Kendrick Turner MD Long, Timothy R, MD Alicea, Tracy J, RN Baig, Mirza A, MD PCP: Sona Saenz MD SUBJECTIVE Chief Complaint Patient presents with Palpitations [employer] (if needed): HPI 63 year old female hx as detailed and reviewed presents to ED c/o palpitations Patient presents for evaluation of palpitations, onset over the past 24 hours. Reports that she recently returned home from [place]. Denies lower extremity swelling or pain. No history of PE or DVT.Reports a history of atrial fibrillation in the past, reports that symptoms today feel similar. Endorses intermittent chest discomfort, however none at the present. Reports that she has not had issues with atrial fibrillation since ablation approximately 10 years ago. Not currently on anticoagulation therapy. Has no other medical complaint. History obtained from: patient ROS Pertinent positives per HPI, otherwise all other systems reviewed and negative. PAST MEDICAL HISTORY Past Medical History: Diagnosis Date A-fib (CMD) History reviewed. No pertinent surgical history. MEDICATIONS Current Facility-Administered Medications Medication dilTIAZem (CARDIZEM) 125 mg/125 mL in sodium chloride infusion Solution Current Outpatient Medications Medication Sig Dispense Refill aspirin (ECOTRIN) 81 MG EC tablet Take 81 mg by mouth daily. metoPROLOL succinate (Toprol XL) 25 MG 24 hr tablet Take 1 tablet by mouth daily. 90 tablet 3 ALLERGIES ALLERGIES: Allergen Reactions Penicillins RASH SOCIAL HISTORY Social History Tobacco Use Smoking status: Former Types: Cigarettes Smokeless tobacco: Never Vaping Use Vaping status: never used Substance Use Topics Alcohol use: Yes Alcohol/week: 2.0 standard drinks of alcohol Types: 2 Glasses of wine per week Drug use: Never Tobacco - as above Alcohol - as above Recreational Drug use - as above SDOH Social Determinants of Health Interpersonal Safety: Low Risk (06/05/2024) Interpersonal Safety How often physically hurt: Never How often insulted or talked down to: Never How often threatened with harm: Never How often scream or curse at: Never Social Connections: Not on file Alcohol Use: Not on file Tobacco Use: Medium Risk (06/05/2024) Patient History Smoking Tobacco Use: Former Smokeless Tobacco Use: Never Passive Exposure: Not on file Financial Resource Strain: Not on file Stress: Not on file (12/07/2020) Physical Activity: Not on file Food Insecurity: Not on file Transportation Needs: Not on file Inadequate Housing: Not on file (06/25/2019) Depression: Not at risk (12/17/2021) [facility] PHQ-2 SCORE: 0 Utilities: Not on file FAMILY HISTORY History reviewed. No pertinent family history. Past medical, family, and social histories as documented in the EMR reviewed and verified. OBJECTIVE ED Triage Vitals ED Triage Vitals Group Temp 06/05/242301 97.8 ??F (36.6 ??C) Heart Rate 06/05/24 2302 (!) 115 Resp 06/05/242 18 BP 06/05/242 (!) 165/70 SpO2 08/10/24 2302 98 % EtCO2 mmHg -- Height -- Weight 06/06/24 0134 181 lb 14.1 oz (82.5 kg) Weight Scale Used -- BMI (Calculated) -- IBW/kg (Calculated) -- Vital Signs Reviewed As Above Constitutional/General: No apparent distress Eyes: EOM grossly intact, no scleral icterus, pupils equal and round HENT: MMM, lips on inspection normal, voice clear and audible, full range of motion of the neck CV: tachycardic, No peripheral edema Resp: unlabored equal respirations, CTAB Abd: NT / NG / No rebound tenderness Ext: ALEKS, digits and nails w/o cyanosis, no LE swelling Skin: No Rash, no bullae Neuro: Alert, no facial asymmetry or droop, moving all extremities, speech nl Psych: Appropriate affect and mood for situation, normal judgement and insight Labs and Imaging Results for orders placed or performed during the hospital encounter of 06/05/24 Basic Metabolic Panel Result Value Fasting Status Sodium 140 Potassium 3.7 Chloride 109 Carbon Dioxide 27 Anion Gap 8 Glucose 98 BUN 9 Creatinine 0.61 Glomerular Filtration Rate >90 Comment: eGFR results = or >60 mL/min/1.73m2 = Normal kidney function. Estimated GFR calculated using the CKD-EPI-R (2020) equation that does not include race in the creatinine calculation. BUN/Cr 15 Calcium 9.0 TROPONIN I, HIGH SENSITIVITY Result Value Troponin I, High Sensitivity 7 NT proBNP Result Value NT-proBNP 130 (H) Magnesium Result Value Magnesium 2.1 CBC with Automated Differential (performable only) Result Value WBC 5.1 RBC 3.95 (L) HGB 12.2 HCT 37.4 MCV 94.7 MCH 30.9 MCHC 32.6 RDW-CV 13.7 RDW-SD 48.4 PLT 223 NRBC 0 Neutrophil, Percent 46 Lymphocytes, Percent 40 [place], Percent 8 Eosinophils, Percent 5 Basophils, Percent 1 Immature Granulocytes 0 Absolute Neutrophils 2.3 Absolute Lymphocytes 2.0 Absolute Monocytes 0.4 Absolute Eosinophils 0.3 Absolute Basophils 0.0 Absolute Immature Granulocytes 0.0 D Dimer, Quantitative Result Value D Dimer, Quantitative <0.19 Imaging Results XR CHEST PA OR AP 1 VIEW (Final result) Result time 06/05/24 23:39:23 Final result Impression: 1. Findings consistent with obstructive airways disease. 2. Mild perihilar interstitial edema may be exaggerated by AP technique, but given the normal heart size, can be seen with reactive airways disease/bronchitis. 3. Small amount of subsegmental atelectasis or scarring without lung opacity concerning for consolidation. Electronically Signed by: DHEERAJ COHN M.D. Signed on: 06/05/2024 11:39 PM Workstation ID: [id number] Narrative: EXAM: XR CHEST AP OR PA INDICATION: SOB. Shortness of breath. COMPARISON: 11/07/2016 TECHNIQUE: Portable upright AP radiograph of the chest FINDINGS: EKG leads project at the patient's chest. The patient is mildly rotated to the left. The cardiomediastinal silhouette is not enlarged. There is no pneumothorax. Biapical pleural-parenchymal scarring is seen. The hemidiaphragms are flattened with relative lucencies of the lungs. There is mild interstitial prominence and perihilar haziness. Linear densities are seen at the lungs. There is no lobar consolidation. The bones are demineralized. No acute fracture is seen. 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 The patient's rhythm shows atrial fibrillation Oxygen Saturation was 98% on RA, interpreted by me as normal. 12 lead EKG interpretation by ED Physician: Date/Time: Performed by: Kendrick Turner MD Authorized by: Kendrick Turner MD ECG reviewed by ED Physician in the absence of a inside sales assistant: yes Previous ECG: Previous ECG: Interpretation: Interpretation: Atrial fibrillation with rapid ventricular response, nonspecific ST changes Rate: ECG rate: 130 ECG rate assessment: tachycardic Rhythm: Rhythm: atrial fibrillation Ectopy: Ectopy: none QRS: QRS axis: wnl QRS intervals: wnl Conduction: Conduction: aberrant ST segments: ST segments: non-specific changes T waves: T waves: wnl PROCEDURES ASSESSMENT & PLAN External data reviewed/clinical collaboration: labs, radiology, EKGs, and prior notes when available. Triage notes and available nursing notes reviewed. Previous medical record reviewed when available. In addition to history obtained from the patient, I have obtained additional information from available independent historians such as family members and/or visitors when available. I have discussed the patient???s care with other providers including but not limited to PharmD, PA, ERT, RN and MDswhen appropriate. 63 year old female hx as detailed and reviewed presents to ED c/o palpitations On my assessment patient is in no distress, resting in bed, vital signs notable for tachycardia, otherwise within normal limits. No oxygen requirement, no clinical evidence to suggest volume overloaded state. EKG does demonstrate evidence of atrial fibrillation with rapid ventricular response. Workup pursued as detailed, evaluate for competing process including cardiac demand ischemia, metabolic derangement, pulmonary embolism. Workup reviewed with patient at bedside, negative as detailed. Ratecontrolled on diltiazem infusion. D/w Dr. Pierce, D/w Dr. Valero. Consults: Cardiology Disposition: Cardiology Critical Care: Patient has illness or injury that acutely impairs one or more vital organ systems (including but not limited to cardiac, pulmonary). I made decisions of high complexity to assess, manipulate, and support vital organ systems. Failure to initiate these interventions would have a high probability of imminent or life threatening deterioration in the patient???s condition.I have spent the following amount of critical care time with this patient, excluding time spent performing separately billable procedures: 35 minutes. Critical care time necessary to treat or prevent imminent life threatening deterioration of the following conditions: atrial fibrillation with rapid ventricular response -This excludes time spent performing separately billable procedures as noted above -This includes time spent at the bedside/immediately available to the patient, frequent reassessments, discussion with consultants, and time spent with patient/family/surrogate decision makers providing discussing the case and making management decisions -This includes but is not limited to time spent performing: data interpretation (pulse oximetry, lab results, reading radiographs), documentation, ventilator management, and peripheral vascular access procedures REASSESSMENT/UPDATES DX: 1. Atrial fibrillation with rapid ventricular response (CMD) The patient/parent/caregiver was given the opportunity to ask any questions, they understand plan for disposition, results of tests, and the limitation of the tests. Multiple diagnoses were considered and discussed in the care of this patient. Radiology findings were reviewed with the patient. If incidental findings were noted on imaging or lab work that need follow up, they were discussed with the patient. Due to the nature of emergency care, time-stamps in this note may not reflect actual time of intervention, reassessment, or other medical care, although every effort was made to create an accurate timeline of events. Kendrick Turner MD Emergency Medicine Kendrick Turner MD 06/06/242107 * Judy Johnson RN - 06/05/2024 11:04 PM CDT Pt presents to ED with c/o afib. Pt has hx of afib and reports she has been experiencing more frequent. Pt reports around 1830 started having palpitations and chest tightness. Pt states she can usually convert herself, but today has not been able to. Pt denies SOB, dizziness, nausea, fevers. documented in this encounter Miscellaneous Notes * PLAN OF CARE - Judy Roldan RN - 06/06/2024 1:42 PM CDT Initial SW/CM Assessment/Plan of Care Note Baseline Assessment 63 year old admitted 06/05/2024 as Inpatient with a diagnosis of afib rvr. Prior to admission patient was living with Spouse and residing at House . Patient???s Primary Care Provider is Sona Saenz MD. Progress Note Clinical review of chart, discussed case with nurse. Pt admitted for afib cardio following, converted to sr possible discharge later today. Pt has hx of afib and ablation was on eliquis then. Pt is up ad renee, indep will return home with spouse. No cm needs identified, can afford eliquis as she had it in the past. Doesn't qualify for 30 day free card had it in the past. AVS done, cm will continue to follow while in hospital. Plan Patient/Family Discharge Goal: Home Is patient/family goal achievable: Yes SW/CM - Recommendations for Discharge: Home Barriers to Discharge Identified Barriers to Discharge/Transition Planning: Medical necessity for acute care Refer to SW/CM Flowsheet for objective data. Medical History Past Medical History: Diagnosis Date A-fib (CMD) Prior to Admission Status Functional Status Ambulation: Independent/Self Bathing: Independent/Self Dressing: Independent/Self Toileting: Independent/Self Meal Preparation: Independent/Self Shopping: Independent/Self Medication Preparation: Independent/Self Medication Administration: Independent/Self Housekeeping: Independent/Self Laundry: Independent/Self Transportation: Independent/Self Agency/Support Type of Services Prior to Hospitalization: None Support Systems: Family members, Significant other Home Devices/Equipment: None Mobility Assist Devices: None Sensory Support Devices: Eyeglasses (reading glasses) P Insurance Primary: BCBS MEDICARE ADVANTAGE Secondary: N/A Disposition Recommendations: SW/SARAI recommendation for discharge: Home * PLAN OF CARE - Abby Chauhan RN - 06/06/2024 10:47 AM CDT Problem: Cardiac Rhythm Disturbances with or without Devices Goal: Hemodynamic stability achieved/maintained Outcome: Monitoring/Evaluating progress Goal: Anxiety is controlled Outcome: Monitoring/Evaluating progress Goal: Participates in ADL/Activity without s/s of intolerance Outcome: Monitoring/Evaluating progress Goal: Urinary elimination pattern returned to baseline Description: Patient must be making adequate amounts of urine output (240cc/8 hours) and voiding. If indwelling urinary catheter: Remove lorenza (no later an Day 2 or provider must specify reason for continued use). Outcome: Monitoring/Evaluating progress Goal: Verbalizes understanding of rhythm disturbance, treatment procedure and pre, post-, and d/c care specific to intervention Description: Document on Patient Education Activity Outcome: Monitoring/Evaluating progress Problem: Pain Goal: Acceptable pain level achieved/maintained at rest using appropriate pain scale for the patient Outcome: Met, complete goal Goal: Acceptable pain level achieved/maintained with activity using appropriate pain scale for the patient Outcome: Met, complete goal Goal: Acceptable pain level achieved/maintained without oversedation Outcome: Met, complete goal documented in this encounter Plan of Treatment Pending Results Name Type Priority Associated Diagnoses Date /Time Electrocardiogram 12-Lead EKG STAT 06/06/2024 2:12 PM CDT Scheduled Orders Name Type Priority Associated Diagnoses Orde r Schedule Electrocardiogram 12-Lead EKG STAT If condition met for 1 Occurrences starting 06/06/2024 Health Maintenance Due Date Last Done Comments [...] 09/02/2022, 08/09/2021, Additional history exists Depression Screening 06/06/2025 06/06/2024 Breast Cancer Screening 01/08/2026 01/09/20 24, 12/09/2022, [...] Priority Date/Time Associated Diagnosis Comments ELECTROCARDIOGRAM 12-LEAD STAT 06/06/2024 2:12 PM CDT CBC WITH DIFFERENTIAL Routine 06/06/2024 4:50 AM CDT CBC WITH AUTOMATED DIFFERENTIAL (PERFORMABLE ONLY) Routine 06/06/2024 4:50 AM CDT BASIC METABOLIC PANEL Routine 06/06/2024 4:50 AM CDT CBC WITH DIFFERENTIAL STAT 06/05/2024 11:29 PM CDT CBC WITH AUTOMATED DIFFERENTIAL (PERFORMABLE ONLY) STAT 06/05/2024 11:29 PM CDT TROPONIN I, HIGH SENSITIVITY STAT 06/05/2024 11:28 PM CDT GOLD TOP STAT 06/05/2024 11:28 PM CDT LIGHT BLUE TOP STAT 06/05/2024 11:28 PM CDT RAINBOW DRAW STAT 06/05/2024 11:28 PM CDT D DIMER, QUANTITATIVE STAT Add-On 06/05/2024 11:28 PM CDT MAGNESIUM STAT 06/05/2024 11:28 PM CDT BASIC METABOLIC PANEL STAT 06/05/2024 11:28 PM CDT THYROID STIMULATING HORMONE REFLEX Add-On 06/05/2024 11:28 PM CDT NT PROBNP STAT 06/05/2024 11:28 PM CDT XR CHEST AP OR PA STAT 06/05/2024 11: 21 PM CDT ELECTROCARDIOGRAM 12-LEAD STAT 06/05/2024 11:07 PM CDT ELECTROCARDIOGRAM 12-LEAD STAT 06/05/2024 11:07 PM CDT documented in this encounter Results * CBC with Automated Differential (performable only) (06/06/2024 4:50 AM CDT) WBC 4.7 4.2 - 11.0 K/mcL 06/06/2024 5:30 AM CDT [facility] RBC 4.04 4.00 - 5.20 mil/mcL 06/06/2024 5:30 AM CDT [facility] HGB 12.5 12.0 - 15.5 g/dL 06/06/2024 5:30 AM CDT [facility] HCT 38.4 36.0 - 46.5 % 06/06/2024 5:30 AM CDT [facility] MCV 95.0 78.0 - 100.0 fl 06/06/2024 5:30 AM CDT [facility] MCH 30.9 26.0 - 34.0 pg 06/06/2024 5:30 AM CDT [facility] MCHC 32.6 32.0 - 36.5 g/dL 06/06/2024 5:30 AM CDT [facility] RDW-CV 13.9 11.0 - 15.0 % 06/06/2024 5:30 AM CDT [facility] RDW-SD 48.9 39.0 - 50.0 fL 06/06/2024 5:30 AM CDT [facility] PLT 218 140 - 450 K/mcL 06/06/2024 5:30 AM CDT [facility] NRBC 0 <=0 /100 WBC 06/06/2024 5:30 AM CDT [facility] Neutrophil, Percent 45 % 06/06/2024 5:30 AM CDT [facility] Lymphocytes, Percent 40 % 06/06/2024 5:30 AM CDT [facility] [place], Percent 9 % 06/06/2024 5:30 AM CDT [facility] Eosinophils, Percent 5 % 06/06/2024 5:30 AM CDT [facility] Basophils, Percent 1 % 06/06/2024 5:30 AM CDT [facility] Immature Granulocytes 0 % 06/06/2024 5:30 AM CDT [facility] Absolute Neutrophils 2.1 1.8 - 7.7 K/mcL 06/06/2024 5:30 AM CDT [facility] Absolute Lymphocytes 1.9 1.0 - 4.0 K/mcL 06/06/2024 5:30 AM CDT [facility] Absolute Monocytes 0.4 0.3 - 0.9 K/mcL 06/06/2024 5:30 AM CDT [facility] Absolute Eosinophils 0.2 0.0 - 0.5 K/mcL 06/06/2024 5:30 AM CDT [facility] Absolute Basophils 0.0 0.0 - 0.3 K/mcL 06/06/2024 5:30 AM CDT [facility] Absolute Immature Granulocytes 0.0 0.0 - 0.2 K/mcL 06/06/2024 5:30 AM CDT [facility] Blood VENOUS BLOOD SPECIMEN / Unknown Venipuncture / Unknown 06/06/2024 4:50 AM CDT 06/06/2024 5:19 AM CDT Narrative [facility] - 06/06/2024 5:30 AM CDT This is an appended report. ??These results have been appended to a previously verified report. Bhavik Valero MD BKR LAB BLOOD ORDERA BLES [address] [address] * Basic Metabolic Panel (06/06/2024 4:50 AM CDT) Fasting Status 06/06/2024 5:47 AM CDT [facility] Sodium 139 135 - 145 mmol/L 06/06/2024 5:47 AM CDT [facility] Potassium 3.7 3.4 - 5.1 mmol/L 06/06/2024 5:47 AM CDT [facility] Chloride 109 97 - 110 mmol/L 06/06/2024 5:47 AM CDT [facility] Carbon Dioxide 27 21 - 32 mmol/L 06/06/2024 5:47 AM CDT [facility] Anion Gap 7 7 - 19 mmol/L 06/06/2024 5:47 AM CDT [facility] Glucose 93 70 - 99 mg/dL 06/06/2024 5:47 AM CDT [facility] BUN 7 6 - 20 mg/dL 06/06/2024 5:47 AM CDT [facility] Creatinine 0.60 0.51 - 0.95 mg/dL 06/06/2024 5:47 AM CDT [facility] Glomerular Filtration Rate >90 >=60 06/06/2024 5:47 AM CDT [facility] Comment:eGFR results = or >6 0 mL/min/1.73m2 = Normal kidney function. Estimated GFR calculated using the CKD-EPI-R (2020) equation that does not include race in the creatinine calculation. BUN/Cr 12 7 - 25 06/06/2024 5:47 AM CDT [facility] Calcium 8.8 8.4 - 10.2 mg/dL 06/06/2024 5:47 AM CDT [facility] Blood VENOUS BLOOD SPECIMEN / Unknown Venipuncture / Unknown 06/06/2024 4:50 AM CDT 06/06/2024 5:19 AM CDT Bhavik Valero MD BKR LAB BLOOD ORDERA BLES [address] [address] * (ABNORMAL) CBC with Automated Differential (performable only) (06/05/2024 11:29 PM CDT) WBC 5.1 4.2 - 11.0 K/mcL 06/05/2024 11:42 PM CDT [facility] RBC 3.95(L) 4.00 - 5.20 mil/mcL 06/05/2024 11:42 PM CDT [facility] HGB 12.2 12.0 - 15.5 g/dL 06/05/2024 11:42 PM CDT [facility] HCT 37.4 36.0 - 46.5 % 06/05/2024 11:42 PM CDT [facility] MCV 94.7 78.0 - 100.0 fl 06/05/2024 11:42 PM CDT [facility] MCH 30.9 26.0 - 34.0 pg 06/05/2024 11:42 PM CDT [facility] MCHC 32.6 32.0 - 36.5 g/dL 06/05/2024 11:42 PM CDT [facility] RDW-CV 13.7 11.0 - 15.0 % 06/05/2024 11:42 PM CDT [facility] RDW-SD 48.4 39.0 - 50.0 fL 06/05/2024 11:42 PM CDT [facility] PLT 223 140 - 450 K/mcL 06/05/2024 11:42 PM CDT [facility] NRBC 0 <=0 /100 WBC 06/05/2024 11:42 PM CDT [facility] Neutrophil, Percent 46 % 06/05/2024 11:42 PM CDT [facility] Lymphocytes, Percent 40 % 06/05/2024 11:42 PM CDT [facility] [place], Percent 8 % 06/05/2024 11:42 PM CDT [facility] Eosinophils, Percent 5 % 06/05/2024 11:42 PM CDT [facility] Basophils, Percent 1 % 06/05/2024 11:42 PM CDT [facility] Immature Granulocytes 0 % 06/05/2024 11:42 PM CDT [facility] Absolute Neutrophils 2.3 1.8 - 7.7 K/mcL 06/05/2024 11:42 PM CDT [facility] Absolute Lymphocytes 2.0 1.0 - 4.0 K/mcL 06/05/2024 11:42 PM CDT [facility] Absolute Monocytes 0.4 0.3 - 0.9 K/mcL 06/05/2024 11:42 PM CDT [facility] Absolute Eosinophils 0.3 0.0 - 0.5 K/mcL 06/05/2024 11:42 PM CDT [facility] Absolute Basophils 0.0 0.0 - 0.3 K/mcL 06/05/2024 11:42 PM CDT [facility] Absolute Immature Granulocytes 0.0 0.0 - 0.2 K/mcL 06/05/2024 11:42 PM CDT [facility] Blood VENOUS BLOOD SPECIMEN / Unknown Venipuncture / Unknown 06/05/2024 11:29 PM CDT 06/05/2024 11:38 PM CDT Kendrick Turner MD BKR LAB BLOOD ORDERA BLES Performing Organization Address City/[facility]/ZIP Co de Phone Number [address] [address] * Thyroid Stimulating Hormone Reflex (06/05/2024 11:28 PM CDT) TSH 4.850 0.350 - 5.000 mcUnits/mL 06/06/2024 3:53 AM CDT [facility] Comment: Findings most consistent with euthyroid state, no additional testing suggested. TSH may be normal in patients with thyroid dysfunction and pituitary disease. Clinical correlation recommended. (Reflex TSH algorithm is not recommended in hospitalized patients. A variety of drugs, as well as serious acute and chronic illnesses may alter thyroid function tests. Commonly implicated drugs include glucocorticoids, dopamine, carbamazepine, iodine, amiodarone, lithium and heparin.) Blood VENOUS BLOOD SPECIMEN / Unknown Venipuncture / Unknown 06/05/2024 11:28 PM CDT 06/05/2024 11:37 PM CDT Bhavik Valero MD BKR LAB BLOOD ORDERA BLES Performing Organization Address City/[facility]/ZIP Co de Phone Number [address] [address] * D Dimer, Quantitative (06/05/2024 11:28 PM CDT) D Dimer, Quantitative <0.19 <0.57 mg/L (FEU) 06/05/2024 11:59 PM CDT [facility] Blood VENOUS BLOOD SPECIMEN / Unknown Venipuncture / Unknown 06/05/2024 11:28 PM CDT 06/05/2024 11:37 PM CDT Narrative [facility] - 06/05/2024 11:59 PM CDT Values < 0.50 mg/L(FEU) may be useful to help exclude DVT or PE in patients at low clinical risk for these disorders. For patients above the age of 50, the [employer] recommends using age adjusted cutoff values. AGE X 0.01 calculates the age adjusted cutoff value in mg/L for these patient populations. Kendrick Turner MD BKR LAB BLOOD ORDERA BLES Performing Organization Address City/[facility]/ZIP Co de Phone Number [address] [address] * Gold Top (06/05/2024 11:28 PM CDT) Extra Tube Hold for Add Ons 06/06/2024 8:01 AM CDT [facility] Blood VENOUS BLOOD SPECIMEN / Unknown Venipuncture / Unknown 06/05/2024 11:28 PM CDT 06/05/2024 11:37 PM CDT Kendrick Turner MD BKR LAB BLOOD ORDERA BLES Performing Organization Address [facility]/ZIP Co de Phone Number [address] [address] * Light Blue Top (06/05/2024 11:28 PM CDT) Extra Tube Hold for Add Ons 06/06/2024 8:01 AM CDT [facility] Blood VENOUS BLOOD SPECIMEN / Unknown Venipuncture / Unknown 06/05/2024 11:28 PM CDT 06/05/2024 11:37 PM CDT Kendrick Turner MD BKR LAB BLOOD ORDERA BLES Performing Organization Address City/[facility]/ZIP Co de Phone Number [address] [address] * Magnesium (06/05/2024 11:28 PM CDT) Magnesium 2.1 1.7 - 2.4 mg/dL 06/06/2024 12:02 AM CDT [facility] Blood VENOUS BLOOD SPECIMEN / Unknown Venipuncture / Unknown 06/05/2024 11:28 PM CDT 06/05/2024 11:37 PM CDT Kendrick SEAMAN LAB BLOOD ORDERA BLES [address] [address] * (ABNORMAL) NT proBNP (06/05/2024 11:28 PM CDT) NT-proBNP 130(H) <=125 pg/mL 06/06/2024 12:02 AM CDT [facility] Blood VENOUS BLOOD SPECIMEN / Unknown Venipuncture / Unknown 06/05/2024 11:28 PM CDT 06/05/2024 11:37 PM CDT Kendrick SEAMAN [facility] BLOOD ORDERA BLES [address] [address] * TROPONIN I, HIGH SENSITIVITY (06/05/2024 11:28 PM CDT) Troponin I, High Sensitivity 7 <52 ng/L 06/06/2024 12:02 AM CDT [facility] Blood VENOUS BLOOD SPECIMEN / Unknown Venipuncture / Unknown 06/05/2024 11:28 PM CDT 06/05/2024 11:37 PM CDT Kendrick SEAM[facility] BLOOD ORDERA BLES [address] [address] * Basic Metabolic Panel (06/05/2024 11:28 PM CDT) Fasting Status 06/06/2024 12:02 AM CDT [facility] Sodium 140 135 - 145 mmol/L 06/06/2024 12:02 AM CDT [facility] Potassium 3.7 3.4 - 5.1 mmol/L 06/06/2024 12:02 AM CDT [facility] Chloride 109 97 - 110 mmol/L 06/06/2024 12:02 AM CDT [facility] Carbon Dioxide 27 21 - 32 mmol/L 06/06/2024 12:02 AM CDT [facility] Anion Gap 8 7 - 19 mmol/L 06/06/2024 12:02 AM CDT [facility] Glucose 98 70 - 99 mg/dL 06/06/2024 12:02 AM CDT [facility] BUN 9 6 - 20 mg/dL 06/06/2024 12:02 AM CDT [facility] Creatinine 0.61 0.51 - 0.95 mg/dL 06/06/2024 12:02 AM CDT [facility] Glomerular Filtration Rate >90 >=60 06/06/2024 12:02 AM CDT [facility] Comment:eGFR results = or >6 0 mL/min/1.73m2 = Normal kidney function. Estimated GFR calculated using the CKD-EPI-R (2020) equation that does not include race in the creatinine calculation. BUN/Cr 15 7 - 25 06/06/2024 12:02 AM CDT [facility] Calcium 9.0 8.4 - 10.2 mg/dL 06/06/2024 12:02 AM CDT [facility] Blood VENOUS BLOOD SPECIMEN / Unknown Venipuncture / Unknown 06/05/2024 11:28 PM CDT 06/05/2024 11:37 PM CDT Kendrick Turner MD BKR LAB BLOOD ORDERA BLES [facility] [address] [address] * XR CHEST PA OR AP 1 VIEW (06/05/2024 11:21 PM CDT) Anatomical Region Laterality Modality Chest/Thorax N/A Digital Radiogra phy 06/05/2024 11:3 8 PM CDT Impressions 06/05/2024 11:39 PM CDT 1. ??Findings consistent with obstructive airways disease. 2. ??Mild perihilar interstitial edema may be exaggerated by AP technique, but given the normal heart size, can be seen with reactive airways disease/bronchitis. 3. ??Small amount of subsegmental atelectasis or scarring without lung opacity concerning for consolidation. Electronically Signed by: DHEERAJ COHN M.D. Signed on: 06/05/2024 11:39 PM Workstation ID: [id number] Narrative 06/05/2024 11:39 PM CDT EXAM: XR CHEST AP OR PA INDICATION: SOB. Shortness of breath. COMPARISON: 11/07/2016 TECHNIQUE: Portable upright AP radiograph of the chest FINDINGS: EKG leads project at the patient's chest. ??The patient is mildly rotated to the left. ??The cardiomediastinal silhouette is not enlarged. There is no pneumothorax. ??Biapical pleural-parenchymal scarring is seen. The hemidiaphragms are flattened with relative lucencies of the lungs. There is mild interstitial prominence and perihilar haziness. ??Linear densities are seen at the lungs. ??There is no lobar consolidation. ??The bones are demineralized. ??No acute fracture is seen. Procedure Note Dheeraj Cohn MD - 06/05/2024 EXAM: XR CHEST AP OR PA INDICATION: SOB. Shortness of breath. COMPARISON: 11/07/2016 TECHNIQUE: Portable upright AP radiograph of the chest FINDINGS: EKG leads project at the patient's chest. The patient ismildly rotated to the left. The cardiomediastinal silhouette is not enlarged. There is no pneumothorax. Biapical pleural-parenchymal scarring is seen. The hemidiaphragms are flattened with relative lucencies of the lungs. There is mild interstitial prominence and perihilar haziness. Linear densities are seen at the lungs. There is no lobar consolidation. The bones are demineralized. No acute fracture is seen. IMPRESSION: 1. Findings consistent with obstructive airways disease. 2. Mild perihilar interstitial edema may be exaggerated by APtechnique, but given the normal heart size, can be seen with reactive airways disease/bronchitis. 3. Small amount of subsegmental atelectasis or scarring without lung opacity concerning for consolidation. Electronically Signed by: DHEERAJ COHN M.D. Signed on: 06/05/2024 11:39 PM Workstation ID: [id number] Kendrick Turner MD IMG XR PROCEDURES * Electrocardiogram 12-Lead (06/05/2024 11:07 PM CDT) Ventricular Rate EKG/Min (BPM) 119 MUSE QRS-Interval (MSEC) 68 MUSE QT-Interval (MSEC) 308 MUSE QTc 433 MUSE R [place] (Degrees) 39 MUSE T [place] (Degrees) 0 MUSE REPORT TEXT Atrial fibrillation with rapid ventricular response Septal infarct , age undetermined Abnormal ECG No previous ECGs available Confirmed by CM MELTON MD ([id number]) on 06/06/2024 2:15:16 PM MUSE 06/05/2024 11:0 7 PM CDT Courtney Kahn DO ECG ORDERABLES Performing Organization Address [facility] de Phone Number MUSE * Electrocardiogram 12-Lead (06/05/2024 11:07 PM CDT) Ventricular Rate EKG/Min (BPM) 119 MUSE QRS-Interval (MSEC) 68 MUSE QT-Interval (MSEC) 308 MUSE QTc 433 MUSE R [place] (Degrees) 39 MUSE T [place] (Degrees) 0 MUSE REPORT TEXT Atrial fibrillation with rapid ventricular response Septal infarct , age undetermined Abnormal ECG No previous ECGs available Confirmed by CM MELTON MD ([id number]) on 06/06/2024 2:15:11 PM MUSE 06/05/2024 11:0 7 PM CDT Marco Zamora MD ECG ORDERABLES Performing Organization Address [facility] Co de Phone Number MUSE documented in this encounter Visit Diagnoses Diagnosis Atrial fibrillation (CMD)- Primary Atrial fibrillation Atrial fibrillation with rapid ventricular response (CMD) Atrial fibrillation documented in this encounter Administered Medications Inactive Administered Medications - up to 1 most recent administrations Medication Order MAR Action Action Date Dose Rate Site acetaminophen (TYLENOL) suppository 650 mg 650 mg EVERY 4 HOURS PRN, Rectal, Mild Pain, Anticipated Mild Pain During Activity/Procedures, Starting on 06/06/24 at 0328, For patients who are unable to tolerate PO acetaminophen, or are NPO. Maximum of 4,000 mg acetaminophen per 24 hours from ALL sources. acetaminophen (TYLENOL) tablet 650 mg 650 mg EVERY 4 HOURS PRN, Oral, Mild Pain, Anticipated Mild Pain During Activity/Procedures, Starting on 06/06/24 at 0328, Maximum of 4,000 mg acetaminophen per 24 hours from ALL sources. Given 06/06/2024 11:05 AM CDT 325 mg apixaBAN (ELIQUIS) tablet 5 mg 5 mg EVERY 12 HOURS SCHEDULED (2 times per day), Oral, First dose on 06/06/24 at 1030 Given 06/06/2024 10:55 AM CDT 5 mg dilTIAZem (CARDIZEM) 125 mg/125 mL in sodium chloride infusion Solution 0-20 mg/hr CONTINUOUS (0-20 mL/hr), Intravenous, Starting on 06/05/24 at 2345, Titrating (yes/no)? Yes (must use dose range when ordering), Titration units (defaults to appropriate selection): mg/hr (Adult/Adolescent), Starting dose: 10 mg/hr, If not at goal, titrate every: 60 minutes, Titrate by: 5 mg/hr, Titrate to maintain: Heart Rate, HR less than (BPM): 100, Notify the provider when: Unable to attain clinical goal within parameters, Start infusion following completion of first loading dose. If ventricular rate consistently less than 80 bpm, stop diltiazem infusion. When ventricular rate greater than 100 bpm, restart diltiazem infusion at 5 mg/hr less than previous infusion rate (if previous infusion rate was 5 mg/hr or less, notify provider). Ensure oral rate control medication (i.e. oral diltiazem, oral metoprolol or alternative beta barbara) has been administered at least 2 hours prior to discontinuation of infusion. Conc = 1 mg/mL New Bag 06/06/2024 12:43 AM CDT 10 mg/hr 10 mL/hr dilTIAZem (CARDIZEM) 125 mg/125 mL in sodium chloride infusion Solution 10 mg/hr CONTINUOUS (10 mL/hr), Intravenous, Starting on 06/06/24 at 0130, Titrating (yes/no)? No (do not use dose range when ordering), Start infusion following completion of first loading dose. If ventricular rate consistently less than 80 bpm, stop diltiazem infusion. When ventricular rate greater than 100 bpm, restart diltiazem infusion at 5 mg/hr less than previous infusion rate (if previous infusion rate was 5 mg/hr or less, notify provider). Ensure oral rate control medication (i.e. oral diltiazem, oral metoprolol or alternative beta barbara) has been administered at least 2 hours prior to discontinuation of infusion. Conc = 1 mg/mL Rate/Dose Verify 06/06/2024 3:50 AM CDT 10 mg/hr 10 mL/hr dilTIAZem (CARDIZEM) bolus from bag 10 mg 10 mg ONCE, Intravenous, On 06/05/24 at 2345, For 1 dose, Administer over 2 Minutes, Bolus from dilTIAZem infusion (using IV pump bolus dose functionality). Bolus from Bag 06/06/2024 12:44 AM CDT 10 mg enoxaparin (LOVENOX) injection 80 mg 80 mg ONCE (rounded from 82.5 mg = 1 mg/kg ? 82.5 kg), Subcutaneous, On 06/06/24 at 0200, For 1 dose, Administer into the abdominal subcutaneous tissue, alternating injection sites between the left and right abdominal wall, at least 2 inches from umbilicus/not over rectus muscles. If administering entire syringe contents, do NOT expel air bubble from syringe. If administering partial dose of syringe, eject syringe contents until the prescribed dose is left in the syringe. Given 06/06/2024 1:49 AM CDT 80 mg Arm, Left metoPROLOL succinate (TOPROL-XL) ER tablet 25 mg 25 mg DAILY, Oral, First dose on 06/06/24 at 0900, Monitor BP / Check apical pulse before giving dose. Do NOT hold dose prior to surgery without a physician order. * Do not crush or chew. *, Hold for SBP less than: 90, Hold for HR less than: 50 Given 06/06/2024 9:12 AM CDT 25 mg propafenone (RYTHMOL SR) capsule 225 mg 225 mg EVERY 12 HOURS SCHEDULED (2 times per day), Oral, First dose on 06/06/24 at 2100, Do NOT Crush or Chew. propafenone (RYTHMOL) tablet 300 mg 300 mg EVERY 4 HOURS, Oral, First dose on 06/06/24 at 1100, For 2 doses Given 06/06/2024 11:56 AM CDT 300 mg sodium chloride (NORMAL SALINE) 0.9 % bolus 1,000 mL 1,000 mL ONCE, Intravenous, Administer over 60 Minutes, On 06/06/24 at 0100, For 1 dose New Bag 06/06/2024 1:00 AM CDT 1,000 mLs 999 mL/hr sodium chloride 0.9 % injection 2 mL 2 mL EVERY 12 HOURS SCHEDULED (2 times per day), Intracatheter, First dose on 06/06/24 at 0900 Given 06/06/2024 10:57 AM CDT 2 mLs documented in this encounter Active and Recently Administered Medications Times are shown in CDT. Scheduled Medication Order 06/04/2024 06/05/2024 06/06/2024 apixaBAN (ELIQUIS) tablet 5 mg 5 mg EVERY 12 HOURS SCHEDULED (2 times per day), Oral, First dose on 06/06/24 at 1030 1055 (Given - Provid er: Abby Chauhan RN) dilTIAZem (CARDIZEM) bolus from bag 10 mg (COMPLETED) 10 mg ONCE, Intravenous, On 06/05/24 at 2345, For 1 dose, Administer over 2 Minutes, Bolus from dilTIAZem infusion (using IV pump bolus dose functionality). 0044 (Bolus from Bag - Provider: Rosemary Vale RN) enoxaparin (LOVENOX) injection 80 mg (COMPLETED) 80 mg ONCE (rounded from 82.5 mg = 1 mg/kg ? 82.5 kg), Subcutaneous, On 06/06/24 at 0200, For 1 dose, Administer into the abdominal subcutaneous tissue, alternating injection sites between the left and right abdominal wall, at least 2 inches from umbilicus/not over rectus muscles. If administering entire syringe contents, do NOT expel air bubble from syringe. If administering partial dose of syringe, eject syringe contents until the prescribed dose is left in the syringe. 0149 (Given - Provid er: Raymond Aragon RN) metoPROLOL succinate (TOPROL-XL) ER tablet 25 mg 25 mg DAILY, Oral, First dose on 06/06/24 at 0900, Monitor BP / Check apical pulse before giving dose. Do NOT hold dose prior to surgery without a physician order. * Do not crush or chew. *, Hold for SBP less than: 90, Hold for HR less than: 50 0912 (Given - Provid er: Abby Chauhan, RN) propafenone (RYTHMOL SR) capsule 225 mg 225 mg EVERY 12 HOURS SCHEDULED (2 times per day), Oral, First dose on 06/06/24 at 2100, Do NOT Crush or Chew. propafenone (RYTHMOL) tablet 300 mg (CANCELED) 300 mg EVERY 4 HOURS, Oral, First dose on 06/06/24 at 1100, For 2 doses 1156 (Given - Provid er: Abby Chauhan RN) sodium chloride (NORMAL SALINE) 0.9 % bolus 1,000 mL (COMPLETED) 1,000 mL ONCE, Intravenous, Administer over 60 Minutes, On 06/06/24 at 0100, For 1 dose 0100 (New Bag - Prov ider: Rosemary Vale RN) sodium chloride 0.9 % injection 2 mL 2 mL EVERY 12 HOURS SCHEDULED (2 times per day), Intracatheter, First dose on 06/06/24 at 0900 1057 (Given - Provid er: Abby Chauhna RN) Continuous Medication Order 06/04/2024 06/05/2024 06/06/2024 dilTIAZem (CARDIZEM) 125 mg/125 mL in sodium chloride infusion Solution (CANCELED) 0-20 mg/hr CONTINUOUS (0-20 mL/hr), Intravenous, Starting on 06/05/24 at 2345, Titrating (yes/no)? Yes (must use dose range when ordering), Titration units (defaults to appropriate selection): mg/hr (Adult/Adolescent), Starting dose: 10 mg/hr, If not at goal, titrate every: 60 minutes, Titrate by: 5 mg/hr, Titrate to maintain: Heart Rate, HR less than (BPM): 100, Notify the provider when: Unable to attain clinical goal within parameters, Start infusion following completion of first loading dose. If ventricular rate consistently less than 80 bpm, stop diltiazem infusion. When ventricular rate greater than 100 bpm, restart diltiazem infusion at 5 mg/hr less than previous infusion rate (if previous infusion rate was 5 mg/hr or less, notify provider). Ensure oral rate control medication (i.e. oral diltiazem, oral metoprolol or alternative beta barbara) has been administered at least 2 hours prior to discontinuation of infusion. Conc = 1 mg/mL 0043 (New Bag - Prov ider: Rosemary Vale RN)0120 (Completed - Provider: Rosemary Vale RN) dilTIAZem (CARDIZEM) 125 mg/125 mL in sodium chloride infusion Solution (CANCELED) 10 mg/hr CONTINUOUS (10 mL/hr), Intravenous, Starting on 06/06/24 at 0130, Titrating (yes/no)? No (do not use dose range when ordering), Start infusion following completion of first loading dose. If ventricular rate consistently less than 80 bpm, stop diltiazem infusion. When ventricular rate greater than 100 bpm, restart diltiazem infusion at 5 mg/hr less than previous infusion rate (if previous infusion rate was 5 mg/hr or less, notify provider). Ensure oral rate control medication (i.e. oral diltiazem, oral metoprolol or alternative beta barbara) has been administered at least 2 hours prior to discontinuation of infusion. Conc = 1 mg/mL 0121 (New Bag - Prov ider: Rosemary Vale RN)0246 (Infusion Continues to Floor - Provider: Marilee Higuera RN)0350 (Rate/Dose Verify - Provider: Edwige Bright RN)0558 (Stopped - Provider: Edwige Bright RN) PRN Medication Order 06/04/2024 06/05/2024 06/06/2024 acetaminophen (TYLENOL) suppository 650 mg(Linked Group 1) 650 mg EVERY 4 HOURS PRN, Rectal, Mild Pain, Anticipated Mild Pain During Activity/Procedures, Starting on 06/06/24 at 0328, For patients who are unable to tolerate PO acetaminophen, or are NPO. Maximum of 4,000 mg acetaminophen per 24 hours from ALL sources. 1105 (See Alternativ e - Provider: Abby Chauhan RN) acetaminophen (TYLENOL) tablet 650 mg(Linked Group 1) 650 mg EVERY 4 HOURS PRN, Oral, Mild Pain, Anticipated Mild Pain During Activity/Procedures, Starting on 06/06/24 at 0328, Maximum of 4,000 mg acetaminophen per 24 hours from ALL sources. 1105 (Given - Provid er: Abby Chauhan RN) sodium chloride (NORMAL SALINE) 0.9 % bolus 500 mL 500 mL PRN, Intravenous, Administer over 30 Minutes, Other, Symptomatic hypotension, SBP less than 90 mmHg, Starting on 06/06/24 at 0328, Unless patient is actively being treated for CHF. sodium chloride 0.9 % flush bag 25 mL 25 mL PRN, Intravenous, Flush, Starting on 06/06/24 at 0328, To flush tubing following intermittent infusions. Linked Groups Order Group 1: acetaminophen (TYLENOL) tablet 650 mgJump to med 650 mg EVERY 4 HOURS PRN, Oral, Mild Pain, Anticipated Mild Pain During Activity/Procedures, Starting on 06/06/24 at 0328, Maximum of 4,000 mg acetaminophen per 24 hours from ALL sources. Or acetaminophen (TYLENOL) suppository 650 mgJump to med 650 mg EVERY 4 HOURS PRN, Rectal, Mild Pain, Anticipated Mild Pain During Activity/Procedures, Starting on 06/06/24 at 0328, For patients who are unable to tolerate PO acetaminophen, or are NPO. Maximum of 4,000 mg acetaminophen per 24 hours from ALL sources. documented in this encounter Care Teams Winding Rack Operator Relationship Specialty Start Date End Date Sona Saenz MD [address] [facility] [address] [place] [address] PCP - General Internal Medicine 01/09/24 documented as of this encounter
--- OUTSIDE RECORDS SUMMARY | 2024-11-07 07:00 | XMS_ITS | Encounter Summary ---
Author Organization [facility] Address [address] [place] [address] Care Team Providers Care Massotherapist Name Role Phone Jeison Orozco MD Primary Care Provider Unav ailable Reason for Visit * Reason Comments Full Skin Exam Encounter Details Date Type Department Care Team (Late st Contact Info) Description 07/14/2023 10:45 AM CDT Office Visit Dermatology - [address] [phone] Olinda Mcmanus PA-C [address] [facility] [address] [place], [place] [phone] Seborrheic keratosis (Primary Dx); History of basal cell carcinoma of skin; Lentigines; Multiple benign melanocytic nevi of both upper extremities, both lower extremities, and trunk; Angioma of skin Social History Tobacco Use Types Packs/Day Years [...] Progress Notes * Olinda Mcmanus PA-C - 07/14/2023 10:45 AM CDT HPI: Tonya Costello is a 62 year old female. Patient presents with: Full Skin Exam History: Pt present today for FSE, pt st 1st one with us, typically just has spot checks- pt statesdoes have a couple spots she would like you to check. Location: face, back, legs Condition present for: [...] no further skin c/o Last Office Visit 03/10/23- Spot Check ROS of the following were done and [...] arms and legs. 6. Lt upper back: 1.0cm subcutaneous nodule, freely mobile ASSESSMENT & PLAN: 1. History of BCC: Lt anterior lower leg, treated 12/31/22. Advised clear today. 2. Seborrheic Keratoses: Advised benign. No treatment necessary as non-inflamed. 3. Benign Nevi of face, neck, chest, back, arms and legs: Advised benign in appearance. Advised on ABCDE'S of melanoma, sunscreen use, monthly self skin examinations and yearly skin examinations. 4.Solar lentigines: Advised benign in appearance. 5. Angiomas of skin: Advised benign. 6. Epidermal cyst: Pt advised on diagnosis as well as tx options of watchful waiting vs full excision. Discussed full excision procedure, suture placement and down time as well as scarring. Pt electsto monitor. If in future pt would like removed she would require a 20 minute cyst removal with Dr. Rayo. Requested Prescriptions No prescriptions requested or ordered in this encounter PATIENT EDUCATION: Skin care reviewed. Sun avoidance, protection and SSE reviewed. Questions answered, Risks/Benefits alternatives discussed w/ patient. Scar, infection, bleeding, pain purpura, recurrence. Pt understands. F/U 6 month skin exam and then yearly 1.) Patient was asked about new and changing moles. Yes 2.) Patient received a complete physical skin examination: Yes 3.) Patient was counseled to perform a monthly self skin examination: Yes Scribed By: Olinda Mcmanus PA-C ID#[id number] documented in this encounter Plan of Treatment Upcoming Encounters Date Type Department Care Team (Late st Contact Info) Description 11/24/2024 1:00 PM [facility] C[facility] HOME Procedure Surgical Procedure Visit [phone] Titus Vieyra MD [address] [place] [address] [address] [place] [address] Scheduled Orders Name Type Priority Associated Diagnoses Orde r Schedule OFFICE/OUTPT VISIT,EST,LEVL III PROCEDURES Routine Seborrheic keratosis History of basal cell carcinoma of skin Lentigines Multiple benign melanocytic nevi of both upper extremities, both lower extremities, and trunk Angioma of skin Ordered: 07/14/2023 documented as of this encounter Visit Diagnoses Diagnosis Seborrheic keratosis- Primary Other seborrheic keratosis History of basal cell carcinoma of skin Personal history of other malignant neoplasm of skin Lentigines Other dyschromia Multiple benign melanocytic nevi of both upper extremities, both lower extremities, and trunk Angioma of skin Hemangioma of skin and subcutaneous tissue documented in this encounter Additional Health Concerns Assessment Noted Time A fall risk assessment has been complete d for the patient 04/26/2014 7:59 AM CDT documented as of this encounter Care Teams Massotherapist Relationship Specialty Start Date End Date Jeison Orozco MD PCP - General 12/25/01 08/12/23 documented as of this encounter
--- OUTSIDE RECORDS SUMMARY | 2024-11-07 07:00 | XMS_ITS | Encounter Summary ---
Author Organization [facility] Address [address] [place] [address] Care Team Providers Care Eyewear Consultant Name Role Phone Qian Mathur MD Primary Care Provider [phone] Reason for Visit * Reason Onset Date Comments Test Results 06/16/2023 Encounter Details Date Type Department Care Team (Late st Contact Info) Description 06/16/2023 Telephone Podiatry - [facility] [address] [facility] [address] [place] [address] Margarita Cotter, [facility] [address] [facility] [address] [place] [address] Test Results Social History Tobacco Use Types Packs/Day Years [...] as of this encounter Progress Notes * Nicolasa Pandya MA - 06/16/2023 12:00 PM CDT Called pt lvm that MRI results are in and advised to contact the office at [phone] to speak with Nicolasa (Dr. Young MA) documented in this encounter Plan of Treatment Upcoming Encounters Date Type Department Care Team (Late st Contact Info) Description 11/24/2024 1:00 PM ATOMIC SPECTROSCOPIST Procedure Surgical Procedure Visit [phone] Titus Vieyra MD [address] [facility] [address] [place] [address] documented as of this encounter Visit Diagnoses Not on filedocumented in this encounter Additional Health Concerns Assessment Noted Time A fall risk assessment has been complete d for the patient 04/26/2014 7:59 AM CDT documented as of this encounter Care Teams Eyewear Consultant Relationship Specialty Start Date End Date Qian Mathur MD [address] [facility] [address] [place] [address] PCP - General Internal Medicine 08/13/23 06/06/24 documented as of this encounter
--- OUTSIDE RECORDS SUMMARY | 2024-11-07 07:00 | XMS_ITS | Encounter Summary ---
Author Organization [facility] Address [address] [place] [address] Care Team Providers Care Billing And Insurance Coordinator Name Role Phone Jeison Orozco MD Primary Care Provider Unav ailable Reason for Visit * Reason Comments Abdominal Pain RLQ pain x 9 days, C T plain yesterday. No relief with meloxicam and tramadol. Also states she lifted a heavy object 9 days ago, chronic right hip pain. Encounter Details Date Type Department Care Team (Late st Contact Info) Description 08/09/2023 12:00 PM CDT Office Visit [facility] - [address] [place], [place] [address] Sandor Ayala MD [address] [facility] [address] [place], [place] [address] Herpes zoster without complication (Primary Dx); Abdominal pain, unspecified abdominal location Social History Tobacco Use Types Packs/Day Years [...] Sign Reading Time Taken Comments Blood Pressure 152/86 08/09/2023 9:18 AM CDT Pulse 80 08/09/2023 9:18 AM CDT Temperature 36.8 ??C (98.3 ??F) 08/09/2023 9:18 AM CD T Respiratory Rate 16 08/09/2023 9:18 AM CDT Oxygen Saturation 97% 08/09/2023 9:18 AM CDT Inhaled Oxygen Concentration - - Weight - - Height - - Body Mass Index - - documented in this encounter Functional Status Functional Status Response Date of Assess ment Hearing Problems? No 12/17/2021 Vision Problems? No 12/17/2021 Difficulty walking? No 12/17/2021 Difficulty dressing or bathing? No 12/17/2021 Problems with daily activities? No 12/17/2021 Cognitive Status Response Date of Assessm ent Memory Problems? No 12/17/2021 documented as of this encounter Patient Instructions * Patient Instructions* Sandor Ayala MD - 08/09/2023 12:00 PM CDT Diagnosis : Herpes zoster without complication (primary encounter diagnosis) Abdominal pain, unspecified abdominal location Diagnosis made at the [facility] are typically made on a provisional basis. Medications Prescribed: Requested Prescriptions Signed Prescriptions Disp Refills famciclovir 500 MG Oral Tab 21 tablet 0 Sig: Take 1 tablet (500 mg total) by mouth 3 (three) times daily for 7 days. gabapentin 300 MG Oral Cap 30 capsule 2 Sig: Take one tablet one the first day, then take one tablet twice a day on day 2, then three timesdaily as needed Please follow up with your Primary Care Provider within 7 days. If your condition worsens or does not improve as expected, call [phone] ([phone]). If you are experiencing a condition that is an emergency or life-threatening, please call 911. documented in this encounter Progress Notes * Sandor Ayala MD - 08/09/2023 12:00 PM CDT Chief Complaint: Tonya Costello is a 62 year old female.with a chief complaint of Abdominal Pain (RLQ pain x 9 days, CT plain yesterday. No relief with meloxicam and tramadol. Also states she lifted a heavy object 9 days ago, chronic right hip pain. ) . History of Present Illness: Context: Patient presents today complaining of pain in the right lower quadrant and right hip for the last 9 days. Patient saw PCP at that time and was treated for possible UTI with Cipro. Symptoms have not improved. Patient has been putting a heating device over the area of pain and thinks she burned herself. Patient also underwent a CT of the abdomen pelvis yesterday which was unrevealing. Patient complains of persistent pain which is keeping her from sleeping. She slept 3 hours last night.Pain continues to hurt in the right hip radiating to the right groin area. Patient is embarrassed that she burned herself using a heating device.. Pain worsens when laying on her back when asleep at night. Review Of Systems: Except as otherwise noted above / HPI, rest of system review was negative. Allergy / Adverse Reaction History reviewed Past Medical History Reviewed Surgical History, Reviewed Social History Reviewed Family History Reviewed PHYSICAL EXAM: BP 152/86 Pulse 80 Temp 98.3 ??F (36.8 ??C) Resp 16 SpO2 97% CONST: Vital signs reviewed. acute distress: In moderate discomfort. non-toxic. age appropriate. EYES: conjunctivae without pallor, lids normal, sclera anicteric, tears present, HEAD, EARS, NOSE, MOUTH, THROAT: normal cephalic, RESP: effort normal, no stridor, no retractions, no accessory muscle use, CV: peripheral edema: none. GI:, no abdominal distension, soft, no mass. Tenderness: none, no rebound, no percussion tenderness, negative Rovsing's, : CVA tenderness: none. SKIN: warm, dry, normal Vesicular dermatomal rash from the right SI region down to the right hip and distal inguinal region as well as proximal anterior thigh, no signs of bruising. NEURO: alert & oriented, speech normal Musculoskeletal: Hip joint normal range of motion, without pain or crepitus. Slight tenderness of the right greater trochanter. No tenderness to the right SI joint. Patient is able to stand without exacerbation of pain. PSYCH: mood & affect normal, speech normal, thought process normal for age. ASSESSMENT AND PLAN: DIFFERENTIAL DIAGNOSIS: Herpes zoster without complication (primary encounter diagnosis) Abdominal pain, unspecified abdominal location Urinary tract infection Orders Placed This Encounter BACK OFFICE URINALYSIS, AUTO, W/O SCOPE famciclovir 500 MG Oral Tab gabapentin 300 MG Oral Cap REVIEW OF WORKUP Laboratory Results: Recent Results (from the past 12 hour(s)) URINALYSIS, AUTO, W/O SCOPE Collection Time: 08/09/23 9:26 AM Result Value Ref Range Glucose Urine Negative Negative mg/dL Bilirubin Urine Negative Negative Ketones Urine Negative Negative - Trace mg/dL Specific [place] 1.015 1.006 - 1.029 Blood Urine Negative Negative PH Urine 6.5 5.0 - 8.0 Protein Urine Negative Negative - Trace mg/dL Urobilinogen Urine 0.2 0.2 - 1.0 mg/dL Nitrite Urine Negative Negative Leukocyte Esterase Urine Small (A) Negative Color Urine Dark Yellow (A) Light Yellow - Yellow Clarity Urine Clear Clear Multistix Lot# [id number] Numeric Multistix Expiration Date Date CT abdomen pelvis yesterday reviewed. 1. No evidence for urolithiasis or obstructive uropathy. 2. Multiple hepatic cysts. 3. Mild diverticulosis coli. DIAGNOSIS AT DISCHARGE: Herpes zoster without complication (primary encounter diagnosis) Abdominal pain, unspecified abdominal location Meds for this Visit: Requested Prescriptions Signed Prescriptions Disp Refills famciclovir 500 MG Oral Tab 21 tablet 0 Sig: Take 1 tablet (500 mg total) by mouth 3 (three) times daily for 7 days. gabapentin 300 MG Oral Cap 30 capsule 2 Sig: Take one tablet one the first day, then take one tablet twice a day on day 2, then three timesdaily as needed MDM Assessment: Patient presents today with 9 days of pain starting from the right SI region radiating to the right groin; clinically there is evidence of a active shingles rash which patient attributed to burning herself on a heating device. Clinically the rash does not appear to be consistent with burn injury; and certainly very consistent with shingles rash. Abdomen is nontender. Right hip joint is smooth without pain. There is slight tenderness over the right greater trochanter which patient attributes to be a chronic symptom. There is no signs of right SI joint pain on exam. Based on findings today symptoms are likely secondary to shingles. We discussed challenges of managing pain due to shingles and recommend starting gabapentin; side effect discussed; dosing regimen discussed. Patient to start famciclovir RYAN. Close monitoring with PCP in a week to ensure adequate pain management The patient indicates understanding of these issues and agrees to the plan. documented in this encounter Plan of Treatment Upcoming Encounters Date Type Department Care Team (Late st Contact Info) Description 11/24/2024 1:00 PM WHEEL SETTER Procedure Surgical Procedure Visit [phone] Titus Vieyra MD [address] [place] [address] [address] [place] [address] documented as of this encounter Procedures Procedure Name Priority Date/Time Associated Diagnosis Comments URNLS DIP STICK/TABLET RGNT AUTO W/O MICROSCOPY Routine 08/09/2023 9:26 AM CDT Abdominal pain, unspecified abdominal location documented in this encounter Results * (ABNORMAL) URINALYSIS, AUTO, W/O SCOPE (08/09/2023 9:26 AM CDT) Glucose Urine Negative Negative mg/dL Bilirubin Urine Negative Negative Ketones Urine Negative Negative - Trace mg/dL Specific [place] 1.015 1.006 - 1.029 Blood Urine Negative Negative PH Urine 6.5 5.0 - 8.0 Protein Urine Negative Negative - Trace mg/dL Urobilinogen Urine 0.2 0.2 - 1.0 mg/dL Nitrite Urine Negative Negative Leukocyte Esterase Urine Small(A) Negative Color Urine Dark Yellow(A) Light Yellow - Yellow Clarity Urine Clear Clear Multistix Lot# [id number] Numeric Multistix Expiration Date 05/2024 Date 08/09/2023 9:26 AM CDT Sandor Ayala MD LABORATORY documented in this encounter Visit Diagnoses Diagnosis Herpes zoster without complication- Primary Herpes zoster without mention of complication Abdominal pain, unspecified abdominal location documented in this encounter Additional Health Concerns Assessment Noted Time A fall risk assessment has been complete d for the patient 04/26/2014 7:59 AM CDT documented as of this encounter Care Teams Billing And Insurance Coordinator Relationship Specialty Start Date End Date Jeison Orozco MD PCP - General 3/1/02 10/17/23 documented as of this encounter
--- OUTSIDE RECORDS SUMMARY | 2024-11-07 07:00 | XMS_ITS | Encounter Summary ---
Author Organization [facility] Address [address] [place] [address] Care Team Providers Care System Support Technician Name Role Phone Jeison Orozco MD Primary Care Provider Unav ailable Reason for Referral * CT (Routine) - Closed Specialty Diagnoses / Procedures Referred By Delmi zee Referred To Contact Radiology Diagnoses Dysuria Flank pain Procedures CT ABDOMEN+PELVIS(UHI=[id number]) CT ANGIO ABD & PELVIS Qian Mathur MD [address] [facility] [address] [place] [address] Referral ID Status Reason Start Date Expiration Date Visits Re quested Visits Authorized [id number] Closed 08/06/2023 08/03/2024 1 1 Reason for Visit * Reason Comments Pain Lower right side/ st abbing pain/ unable to sleep at night / since Burning On Urination Encounter Details Date Type Department Care Team (Late st Contact Info) Description 08/04/2023 2:15 PM CDT Office Visit Internal Medicine - [facility] [address] [facility] [address] [place] [address] Qian Mathur MD [address] [facility] [facility] [address] [place] [address] Dysuria (Primary Dx); Flank pain; Need for prophylactic vaccination against Streptococcus pneumoniae (pneumococcus); Need for influenza vaccination Social History Tobacco Use Types Packs/Day Years [...] Sign Reading Time Taken Comments Blood Pressure 126/80 08/04/2023 2:14 PM CDT Pulse 65 08/04/2023 2:14 PM CDT Temperature 36.3 ??C (97.4 ??F) 08/04/2023 2:14 PM CD T Respiratory Rate - - Oxygen Saturation 98% 08/04/2023 2:14 PM CDT Inhaled Oxygen Concentration - - Weight 69.9 kg (154 lb 3.2 oz) 08/04/2023 2:14 P M CDT Height - - Body Mass Index 24.89 05/30/2023 12:42 PM CDT documented in this encounter Functional Status Functional Status Response Date of Assess ment Hearing Problems? No 12/17/2021 Vision Problems? No 12/17/2021 Difficulty walking? No 12/17/2021 Difficulty dressing or bathing? No 12/17/2021 Problems with daily activities? No 12/17/2021 Cognitive Status Response Date of Assessm ent Memory Problems? No 12/17/2021 documented as of this encounter Progress Notes * Qian Mathur MD - 08/04/2023 2:15 PM CDT Tonya Costello is a 62 year old female. Patient presents with: Pain: Lower right side/ stabbing pain/ unable to sleep at night / since Burning On Urination 4 d ago developed R groin pain, now R abd, R lower back She has urinary frequency No fevers/chills Pt rates pain as up to on a scale of 1 to 10. Pain comes in waves, worse w/ laying down No relief w/ tylenol/ibuprofen No n/v History nephrolithiasis ROS OUTLINED ABOVE. OTHERWISE REVIEWED ACROSS 10 CATEGORIES AND NEGATIVE HISTORY: Past Medical History: Diagnosis Date AF [...] TO SPLENIC FLEXURE; W/DIRECTED SUBMUCOSA INJECTION(S), ANY [id number]/8/2012 OTHER SURGICAL HISTORY facial plastic surgery REMOVAL [...] Comment: socially, 7 drinks/week Drug use: No Current Outpatient Medications Medication Sig Dispense Refill naproxen 500 MG Oral Tab Take 1 tablet (500 mg total) by mouth 2 (two) times daily with meals. 60 tablet 0 Imiquimod 5 % External Cream Apply to affected area on leg once a day Friday- Friday x 6 weeks. Do not apply on Friday and Friday. 12 each 1 azithromycin (ZITHROMAX Z-JASON) 250 MG Oral Tab Take two tablets today, then one tablet daily for 4 more days 6 tablet 0 zolpidem 5 MG Oral Tab Take 1 tablet (5 mg total) by mouth daily. 30 tablet 0 triamcinolone acetonide 0.1 % External Cream Apply to rash of back twice daily prn itch. 30 g 0 Nutritional Supplements (JUICE PLUS FIBRE OR) Take by mouth. Cholecalciferol (VITAMIN D) 1000 units Oral Tab Take by mouth. TURMERIC OR Take by mouth. ALLERGIES: Penicillins RASH Immunization History Administered Date(s) Administered Covid-19 Vaccine [facility] (J&J) 0.5ml 01/25/2021 Covid-19 Vaccine Moderna 100 mcg/0.5 ml 10/08/2021 FLUZONE 6 months and older PFS 0.5 ml (66901) 08/04/2020 08/09/2021 HEP A/HEP B Combined 02/25/2011 03/29/2011 10/15/2011 TDAP 02/25/2011 PE Blood pressure 126/80, pulse 65, temperature 97.4 ??F (36.3 ??C), temperature source Temporal, weight 154 lb 3.2 oz (69.9 kg), SpO2 98 %. Body mass index is 24.89 kg/m??. Genl: NAD HEENT: ears NL b/l Neck: no LAD Lungs CTA b/l CV RRR. No murmur Abd Soft NTND. No CVAT Extr: no c/c/e. Neuro: no focal deficits Skin: no rashes STAT URINE DIP mod jacky ASSESSMENT AND PLAN: R lower back/flank pain. Urinary freq. Possible nephrolithiasis vs pyelo Cipro x [address] a/p Ensure adequate hydration Monitor temperature See orders After visit summary given to pt The patient indicates understanding of these issues and agrees to the plan. All of pt's ?s were answered today No follow-ups on file. * Qian Mathur MD - 08/04/2023 2:15 PM CDT On cipro * Qian Mathur MD - 08/04/2023 2:15 PM CDT See MyChart comments documented in this encounter Plan of Treatment Upcoming Encounters Date Type Department Care Team (Late st Contact Info) Description 11/24/2024 1:00 PM CD TECHNICIAN Procedure Surgical Procedure Visit [phone] Titus Vieyra MD [address] [place] [address] [address] [place] [address] Scheduled Orders Name Type Priority Associated Diagnoses Orde r Schedule OFFICE/OUTPT VISIT,EST,LEVL III PROCEDURES Routine Dysuria Flank pain Need for prophylactic vaccination against Streptococcus pneumoniae (pneumococcus) Need for influenza vaccination Ordered: 08/04/2023 documented as of this encounter Procedures Procedure Name Priority Date/Time Associated Diagnosis Comments URINE MICROSCOPIC EXAMINATION RYAN 08/04/2023 4:54 PM CDT Dysuria URINALYSIS, COMPLETE WITH MICROSCOPIC EXAMINATION WITH REFLEX TO URINE CULTURE, ROUTINE Routine 08/04/2023 4:54 PM CDT Dysuria URINE CULTURE, ROUTINE RYAN 08/04/2023 4:54 PM CDT Dysuria URNLS DIP STICK/TABLET RGNT AUTO W/O MICROSCOPY Routine 08/04/2023 4:52 PM CDT Dysuria documented in this encounter Results * CT ABDOMEN+PELVIS(IKK=[id number]) (08/08/2023 9:09 AM CDT) Anatomical Region Laterality Modality Abdomen, Pelvis Computed Tomogra phy 08/08/2023 3:35 PM CDT Impressions 08/08/2023 3:41 PM CDT Impression: 1. ??No evidence for urolithiasis or obstructive uropathy. 2. ??Multiple hepatic cysts. 3. ??Mild diverticulosis coli. Narrative 08/08/2023 3:41 PM CDT DATE OF SERVICE: 08.08.2023 CT ABDOMEN+PELVIS(DLS=[id number]) Clinical Indication: ??DYSURIA, FLANK PAIN Comparison: ??None. Technique: ??Helical CT of the abdomen and pelvis without intravenous contrast. ??This results in a limited evaluation of solid visceral organs and the vascular structures in the absence of intravenous contrast. Limited evaluation of bowel loops in the absence of oral contrast. The following observations were made within these confines. Automated exposure control and ALARA manual techniques for patient specific dose reduction were followed while maintaining the necessary diagnostic image quality. Findings: Limited Lung Bases: Clear. Unenhanced Liver and Biliary System: There are 2 left hepatic cyst measuring 1.1 cm as well as 2 subcentimeter hypodense lesions right hepatic lobe which are too small to accurately characterize by statistically likely related to cysts, less likely hemangiomas. There is no intrahepatic or common ductal dilatation. ?? The gall bladder is present. Unenhanced Spleen: ??Unremarkable. Unenhanced Pancreas: ??Unremarkable. ?? Unenhanced Adrenal Glands: Unremarkable. Unenhanced Genitourinary Structures: No hydronephrosis. No evidence of urolithiasis. The urinary bladder is grossly unremarkable. Retroverted uterus is present. The bilateral adnexa are grossly unremarkable.. Unenhanced Vessels: Mild calcified atherosclerosis. Lymph nodes Nodes: No abdominal or pelvic lymphadenopathy within the limitations of a noncontrast study. ?? Bowel and Mesentery: There is no abdominal free air or free fluid. ??There is no pelvic free fluid. ?? Moderate colonic fecal stasis. Scattered sigmoid colonic diverticulosis without acute diverticulitis. ??The appendix is unremarkable in caliber. Abdominal and Pelvic Wall and Osseous Structures: Small umbilical hernia containing fat. Mild spondylosis. Procedure Note Jackie Kahn MD - 08/08/2023 DATE OF SERVICE: 08.08.2023 CT ABDOMEN+PELVIS(IXR=[id number]) Clinical Indication: DYSURIA, FLANK PAIN Comparison: None. Technique: Helical CT of the abdomen and pelvis without intravenouscontrast. This results in a limited evaluation of solid visceral organs and the vascularstructures in the absence of intravenous contrast. Limited evaluation of bowel loops in the absence oforal contrast. The following observations were made within these confines. Automated exposurecontrol and ALARA manual techniques for patient specific dose reduction were followed whilemaintaining the necessary diagnostic image quality. Findings: Limited Lung Bases: Clear. Unenhanced Liver and Biliary System: There are 2 left hepatic cystmeasuring 1.1 cm as well as 2 subcentimeter hypodense lesions right hepatic lobe which are too small toaccurately characterize by statistically likely related to cysts, less likely hemangiomas. There isno intrahepatic or common ductal dilatation. The gall bladder is present. Unenhanced Spleen: Unremarkable. Unenhanced Pancreas: Unremarkable. Unenhanced Adrenal Glands: Unremarkable. Unenhanced Genitourinary Structures: No hydronephrosis. No evidence ofurolithiasis. The urinary bladder is grossly unremarkable. Retroverted uterus is present. Thebilateral adnexa are grossly unremarkable.. Unenhanced Vessels: Mild calcified atherosclerosis. Lymph nodes Nodes: No abdominal or pelvic lymphadenopathy within thelimitations of a noncontrast study. Bowel and Mesentery: There is no abdominal free air or free fluid. Thereis no pelvic free fluid. Moderate colonic fecal stasis. Scattered sigmoid colonic diverticulosiswithout acute diverticulitis. The appendix is unremarkable in caliber. Abdominal and Pelvic Wall and Osseous Structures: Small umbilical herniacontaining fat. Mild spondylosis. ===== Impression: 1. No evidence for urolithiasis or obstructive uropathy. 2. Multiple hepatic cysts. 3. Mild diverticulosis coli. Qian Mathur MD RIS CT * URINE CULTURE, ROUTINE (08/04/2023 4:54 PM CDT) Urine Culture, Routine Final report 08/06/2023 5:09 PM CDT [facility] ([facility]) Result 1 Comment 08/06/2023 5:09 PM CDT [facility] ([facility]) Comment: Mixed urogenital kenneth Less than 10,000 colonies/mL Urine 08/04/2023 4:54 PM CDT 08/04/2023 4:54 PM CDT Narrative [facility] ([facility]) - 08/06/2023 5:09 PM CDT Performed at: ??01 - [facility] ??[id number] [employer] Machine Operator: Jamari Muñoz PhD, Phone: ??[phone] Qian Mathur MD LABORATORY Performing Organization Address [facility]/ZIP Co de Phone Number [facility] ([facility]) * (ABNORMAL) URINE MICROSCOPIC EXAMINATION (08/04/2023 4:54 PM CDT) WBC 6-10(A) 0 - 5 /hpf 08/06/2023 5:09 PM CDT [facility] ([facility]) RBC None seen 0 - 2 /hpf 08/06/2023 5:09 PM CDT [facility] ([facility]) Epithelial Cells (non renal) 0-10 0 - 10 /hpf 08/06/2023 5:09 PM CDT [facility] ([facility]) Casts Urine None seen None seen /lpf 08/06/2023 5:09 PM CDT [facility] ([facility]) Mucus Threads Present Not Estab. 08/06/2023 5:09 PM CDT [facility] ([facility]) Bacteria Urine None seen None seen/Few 08/06/2023 5:09 PM CDT [facility] ([facility]) Urine 08/04/2023 4:54 PM CDT 08/04/2023 4:54 PM CDT Narrative [facility] ([facility]) - 08/06/2023 5:09 PM CDT Performed at: ??01 - [facility] [address] ??[id number] [employer] Machine Operator: Jamari Muñoz PhD, Phone: ??[phone] Qian Mathur MD URINE ORDERABLES Performing Organization Address City/[facility]/ZIP Co de Phone Number [facility] ([facility]) * (ABNORMAL) URINALYSIS, COMPLETE WITH MICROSCOPIC EXAMINATION WITH REFLEX TO URINE CULTURE, ROUTINE (08/04/2023 4:54 PM CDT) Specific [place] 1.008 1.005 - 1.030 08/06/2023 5:09 PM CDT [facility] ([facility]) pH 6.0 5.0 - 7.5 08/06/2023 5:09 PM CDT [facility] ([facility]) Urine-Color Colorless Yellow 08/06/2023 5:09 PM CDT [facility] ([facility]) Appearance Clear Clear 08/06/2023 5:09 PM CDT [facility] ([facility]) WBC Esterase 2+(A) Negative 08/06/2023 5:09 PM CDT [facility] ([facility]) Protein Negative Negative/Tra ce 08/06/2023 5:09 PM CDT [facility] ([facility]) Glucose Negative Negative 08/06/2023 5:09 PM CDT [facility] ([facility]) Ketones Negative Negative 08/06/2023 5:09 PM CDT [facility] ([facility]) Occult Blood Negative Negative 08/06/2023 5:09 PM CDT [facility] ([facility]) Bilirubin Negative Negative 08/06/2023 5:09 PM CDT [facility] ([facility]) Urobilinogen,Se mi-Qn <=1.0 0.2 - 1.0 mg/dL 08/06/2023 5:09 PM CDT [facility] ([facility]) Nitrite, Urine Negative Negative 08/06/2023 5:09 PM CDT [facility] ([facility]) Microscopic Examination See below: 08/06/2023 5:09 PM CDT [facility] ([facility]) Urinalysis Reflex Comment 08/06/2023 5:09 PM CDT [facility] ([facility]) Comment:This specimen has re flexed to a Urine Culture. Urine 08/04/2023 4:54 PM CDT 08/04/2023 4:54 PM CDT Narrative [facility] ([facility]) - 08/06/2023 5:09 PM CDT Performed at: ??01 - [facility] [address] ??[id number] [employer] Machine Operator: Jamari Muñoz PhD, Phone: ??[phone] Qian Mathur MD URINE ORDERABLES [facility] ([facility]) * (ABNORMAL) URINALYSIS, AUTO, W/O SCOPE (08/04/2023 4:52 PM CDT) Glucose Urine Negative Negative mg/dL Bilirubin Urine Negative Negative Ketones Urine Negative Negative - Trace mg/dL Specific [place] 1.010 1.006 - 1.029 Blood Urine Negative Negative PH Urine 6.0 5.0 - 8.0 Protein Urine Negative Negative - Trace mg/dL Urobilinogen Urine 0.2 0.2 - 1.0 mg/dL Nitrite Urine Negative Negative Leukocyte Esterase Urine Moderate(A) Negative Color Urine Yellow Light Yellow - Yellow Clarity Urine Clear Clear Multistix Lot# [id number] Numeric Multistix Expiration Date 07/20 Date 08/04/2023 4:52 PM CDT Qian Mathur MD LABORATORY documented in this encounter Visit Diagnoses Diagnosis Dysuria- Primary Flank pain Abdominal pain, unspecified site Need for prophylactic vaccination against Streptococcus pneumoniae (pneumococcus) Need for prophylactic vaccination against streptococcus pneumoniae (pneumococcus) Need for influenza vaccination Need for prophylactic vaccination and inoculation against influenza Dysuria Flank pain Abdominal pain, unspecified site documented in this encounter Additional Health Concerns Assessment Noted Time A fall risk assessment has been complete d for the patient 04/26/2014 7:59 AM CDT documented as of this encounter Care Teams System Support Technician Relationship Specialty Start Date End Date Jeison Orozco MD PCP - General 12/25/01 08/12/23 documented as of this encounter
--- OUTSIDE RECORDS SUMMARY | 2024-11-07 07:00 | XMS_ITS | Encounter Summary ---
Author Organization [facility] Address [address] [place] [address] Care Team Providers Care Dental Professional Name Role Phone Qian Mathur MD Primary Care Provider [phone] Reason for Visit * Reason Comments Follow - Up Has shingles Encounter Details Date Type Department Care Team (Late st Contact Info) Description 08/13/2023 11:15 AM CDT Office Visit Internal Medicine - [facility] [address] [facility] [address] [place] [address] Qian Mathur MD [address] [facility] [address] [place], [place] [id number] Herpes zoster with complication (Primary Dx) Social History Tobacco Use Types [...] Sign Reading Time Taken Comments Blood Pressure 132/76 08/13/2023 11:19 AM CDT Pulse 66 08/13/2023 11:19 AM CDT Temperature 36.4 ??C (97.6 ??F) 08/13/2023 1 1:19 AM CDT Respiratory Rate - - Oxygen Saturation 99% 08/13/2023 11: 19 AM CDT Inhaled Oxygen Concentration - - Weight 71.1 kg (156 lb 12.8 oz) 023 11:19 AM CDT Height 168.9 cm (5' 6.5 ) 08/13/2023 11 :19 AM CDT Body Mass Index 24.93 08/13/2023 11:19 AM CDT documented in this encounter Functional Status Functional Status Response Date of Assess ment Hearing Problems? No 12/17/2021 Vision Problems? No 12/17/2021 Difficulty walking? No 12/17/2021 Difficulty dressing or bathing? No 12/17/2021 Problems with daily activities? No 12/17/2021 Cognitive Status Response Date of Assessm ent Memory Problems? No 12/17/2021 documented as of this encounter Progress Notes * Qian Mathur MD - 08/13/2023 11:15 AM CDT Tonya Costello is a 62 year old female. Patient presents with: Follow - Up: Has shingles Seen 08/04 for R groin pain, now R abd, R lower back and urinary freq CT negative for stones Later developed rash in same distrib - went to [facility] - dx shingles. Tx'd w/ famvir and gabapentin ROS OUTLINED ABOVE. OTHERWISE REVIEWED ACROSS 10 [...] TO SPLENIC FLEXURE; W/DIRECTED SUBMUCOSA INJECTION(S), ANY TONRQOHGC40/8/2012 OTHER SURGICAL HISTORY facial plastic surgery REMOVAL [...] 3 (three) times daily. 90 tablet 1 famciclovir 500 MG Oral Tab Take 1 tablet (500 mg total) by mouth 3 (three) times daily for 7 days.21 tablet 0 gabapentin 300 MG Oral Cap Take one [...] Immunization History Administered Date(s) Administered Covid-19 Vaccine Ophis Vape (J&J) 0.5ml 01/25/2021 Covid-19 Vaccine Moderna 100 mcg/0.5 ml 10/08/2021 FLUZONE 6 months and older PFS 0.5 ml (00236) 08/04/2020 08/09/2021 Flucelvax 0.5 ml Quad MDV 6m+ (60111) 08/04/2023 HEP A/HEP B Combined 02/25/2011 03/29/2011 10/15/2011 Pneumococcal Conjugate Pcv20 08/04/2023 TDAP 02/25/2011 PE Blood pressure 132/76, pulse 66, temperature 97.6 ??F (36.4 ??C), temperature source Temporal, height 5' 6.5 (1.689 m), weight 156 lb 12.8 oz (71.1 kg), SpO2 99 %. Body mass index is 24.93 kg/m??. Genl: NAD Skin - extensive shingles in distribution as outlined above. Some starting to scab ASSESSMENT AND PLAN: shingles, on famvir Increase gabapentin to 600 tid She has oxycodone to use prn Discussed natural course of healing of rash and pain resolution See orders After visit summary given to pt The patient indicates understanding of these issues and agrees to the plan. All of pt's ?s were answered today No follow-ups on file. documented in this encounter Plan of Treatment Upcoming Encounters Date Type Department Care Team (Late st Contact Info) Description 11/24/2024 1:00 PM NURSE ASSESSOR Procedure Surgical Procedure Visit [phone] Titus Vieyra MD [address] [place] [address] [address] [place] [address] Scheduled Orders Name Type Priority Associated Diagnoses Orde r Schedule OFFICE/OUTPT VISIT,EST,LEVL III PROCEDURES Routine Herpes zoster with complication Ordered: 08/13/2023 documented as of this encounter Visit Diagnoses Diagnosis Herpes zoster with complication- Primary Herpes zoster with unspecified complication documented in this encounter Additional Health Concerns Assessment Noted Time A fall risk assessment has been complete d for the patient 04/26/2014 7:59 AM CDT documented as of this encounter Care Teams Dental Professional Relationship Specialty Start Date End Date Qian Mathur MD [address] [facility] [address] [place] [address] PCP - General Internal Medicine 08/13/23 06/06/24 documented as of this encounter
--- OUTSIDE RECORDS SUMMARY | 2024-11-07 07:00 | XMS_ITS | Encounter Summary ---
Author Organization [facility] Address [address] [place] [address] Care Team Providers Care Maintenance Repairman Name Role Phone Jeison Orozco MD Primary Care Provider Unav ailable Reason for Visit * Reason Onset Date Comments Condition Update 08/08/2023 Encounter Details Date Type Department Care Team (Late st Contact Info) Description 08/08/2023 Telephone Internal Medicine - [facility] [address] [facility] [address] [place] [address] Qian Mathur MD [address] [facility] [address] [place], [place] [phone] Condition Update Social History Tobacco Use Types Packs/Day Years [...] as of this encounter Progress Notes * Leigha Santana RN - 08/08/2023 4:36 PM CDT Called and spoke to patient Patient was informed of MD comments and recommendations Patient verbalized understanding * Qian Mathur MD - 08/08/2023 3:[address] results not in but I think we may want to get her in / [facility] today * Grace Lee RN - 08/08/2023 3:04 PM CDT Patient called in. Hippa verified per phone consent. Jacob states that she is still having severe back pain since being seen Friday. Jacob states that she is having body aches all over. Jacob unclear if it is related to flu vaccines she also had Friday. Had fever of 100.3 yesterday. Now no fever. Jacob states she is hardly sleeping pain is sobad. Utilizing heat pack, ibuprofen/tylenol and muscle relaxer at night. Wanting to update MD on condition. Advised if needing care over the weekend to go to [facility], verbalizing understanding. Location given. Jacob wanting to know if CT results are in, not in yet. documented in this encounter Plan of Treatment Upcoming Encounters Date Type Department Care Team (Late st Contact Info) Description 11/24/2024 1:00 PM AUTO SERVICER Procedure Surgical Procedure Visit [phone] Titus Vieyra MD [facility] [address] [place] [address] documented as of this encounter Visit Diagnoses Not on filedocumented in this encounter Additional Health Concerns Assessment Noted Time A fall risk assessment has been complete d for the patient 04/26/2014 7:59 AM CDT documented as of this encounter Care Teams Maintenance Repairman Relationship Specialty Start Date End Date Jeison Orozco MD PCP - General 12/25/01 08/12/23 documented as of this encounter
--- OUTSIDE RECORDS SUMMARY | 2024-11-07 07:00 | XMS_ITS | Encounter Summary ---
Author Organization [facility] Address [address] [place] [address] Care Team Providers Care Occupational Health Nurse Supervisor Name Role Phone Jeison Orozco MD Primary Care Provider Unav ailable Reason for Referral * MRI (Routine) - Closed Specialty Diagnoses / Procedures Referred By Delmi zee Referred To Contact Radiology Diagnoses Pain of left heel Procedures MRI ANKLE/HINDFOOT, LEFT ([id number]) Margarita Cotter DPM [address] [facility] [address] [place] [address] Referral ID Status Reason Start Date Expiration Date Visits Re quested Visits Authorized [id number] Closed 05/30/2023 05/28/2024 1 1 Reason for Visit * Reason Comments Establish Care LUCILLE 05/08/23 Plantar fasciitis, left, Pes cavus. Pt presents for ongoing left heel pain. Pt has already had 2 cortisone injections. Encounter Details Date Type Department Care Team (Late st Contact Info) Description 05/29/2023 3:10 PM CDT Office Visit Podiatry - [facility] [address] [facility] [address] [place] [address] Margarita Cotter DPM [address] [facility] [address] [place] [address] Plantar fasciitis, left (Primary Dx); Pain of left heel; Pes cavus of both feet; Heel spur, left Social History Tobacco Use Types Packs/Day Years [...] as of this encounter Progress Notes * Margarita Cotter, DPM - 05/29/2023 3:10 PM CDT Tonya Costello is a 62 year old female. Patient presents with: Establish Care: LUCILLE 05/08/23 Plantar fasciitis, left, Pes cavus. Pt presents for ongoing left heel pain. Pt has already had 2 cortisone injections. Allergies: Penicillins RASH Current Meds: Current Outpatient Medications Medication Sig Dispense Refill Imiquimod 5 % External Cream Apply to [...] by mouth. TURMERIC OR Take by mouth. Patient presents with: Establish Care: LUCILLE 05/08/23 Plantar fasciitis, left, Pes cavus. Pt presents for ongoing left heel pain. Pt has already had 2 cortisone injections. Pt presents in f/u of heel pain, left. Patient reports no improvement in her heel pain. After second injection she states there was no improvement. Previously after first injection, she states she was pain free for 24 hrs. She then went for 2 mile walk and states that the pain then flared up again. HPI: The pain is worse when first getting up after periods of rest, and then improves with further steps. Patient states pain started when she was on vacation doing a very high amount of walking and wearing a new type of hiking boot. OBJECTIVE FINDINGS: Integument: Warm, dry, and supple bilateral. There is positive pedal hair growth bilateral. There are no changes in skin coloration. There are no open lesions and there are no signs of infection. Vascular: Dorsalis pedis and posterior tibial pulses are 2/4 bilaterally. Capillaryfilling time is less than 3 seconds to digits 1 through 5 bilaterally. There is no peripheral edemanoted. Neurologic: Grossly intact to sharp/dull, light touch, and proprioception bilaterally. Musculoskeletal: Muscle strength is 5/5 supinators and pronators. Joints are congruous, equal, and pain-free. There is pain with deep palpation of plantar medial calcaneal tuberosity, left heel, less pain distally along the course of the plantar fascia and plantar central calcaneal tuberosity. No pain with [id number] compression of the calcaneus, no evidence of tarsal tunnel syndrome on examination. Increased medial arch height bilaterally. X-rays left foot: Negative for acute osseous pathology. Plantar and posterior calcaneal spurring isnoted on lateral view. IMPRESSION: Plantar fasciitis, left. Pes Cavus Heel spur left Left heel pain PLAN: Examined patient, discussed treatment. Obtained x-rays previously. Patient reports no improvement after 2 injections as well as orthotics and supportive shoe gear. Recommend MRI for further evaluation. Follow-up 1 week after MRI. If pain continues, consider PT. Patient already has custom orthotics. Patient is going to be going on vacation where she will be doing extensive walking. Rx naproxen, advised on use. Discussed risks associated with NSAIDs and thus she is only given a 30-day supply. Patient reports she may not take it as her sister is a pharmacist and has advised her not to take NSAIDs. documented in this encounter Plan of Treatment Upcoming Encounters Date Type Department Care Team (Late st Contact Info) Description 11/24/2024 1:00 PM TELEPHONE CLERK Procedure Surgical Procedure Visit [phone] Titus Vieyra MD [address] [place] [address] [address] [place] [address] Scheduled Orders Name Type Priority Associated Diagnoses Orde r Schedule OFFICE/OUTPT VISIT,EST,LEVL III PROCEDURES Routine Pain of left heel Pes cavus of both feet Heel spur, left Ordered: 05/29/2023 documented as of this encounter Results * MRI ANKLE/HINDFOOT, LEFT ([id number]) (06/11/2023 8:26 AM CDT) Anatomical Region Laterality Modality Ankle Left Magnetic Resonan ce 06/11/2023 10:2 6 AM CDT Impressions 06/11/2023 10:49 AM CDT IMPRESSION: 1. ??Subtle partial-thickness tearing along the insertion of the medial band of the plantar fascia with additional inflammatory changes seen throughout both the medial and lateral insertional plantar fascial bands with reactive soft tissue swelling and reactive osteitis. No gross avulsion fracture with complete fascial tear is identified. Narrative 06/11/2023 10:49 AM CDT DATE OF SERVICE: 06.11.2023 MRI ANKLE/HINDFOOT, LEFT ([id number]) ??06/11/2023 8:00 AM CLINICAL INDICATION: Pain of left heel. COMPARISON STUDY: April 15, 2023 radiograph. TECHNIQUE: Axial and sagittal inversion recovery and T1-weighted sequences as well is coronal inversion recovery and proton density sequences were performed through the ankle without the use of contrast material. Imaging was performed on a 3.0 Brittany magnet. ADVERSE REACTION: None. FINDINGS: OSSEOUS STRUCTURES: The visualized osseous structures are homogeneous in signal intensity on both T1 and T2-weighted images. ? JOINT SPACES: The visualized joint spaces are well-maintained. There is no evidence of significant erosion, cartilaginous defect or subchondral edema/cyst formation. LIGAMENTOUS STRUCTURES: The deep and superficial deltoid ligaments maintain normal caliber and signal intensity without evidence of focal tear. The anterior and posterior talofibular, calcaneofibular and the anterior and posterior tibiofibular ligaments all maintain normal caliber and signal intensity. TENDINOUS STRUCTURES: The anterior tibialis, extensor digitorum longus and extensor hallucis longus tendons maintain normal caliber and signal intensity without associated fluid. The posterior tibialis, flexor digitorum longus and flexor hallucis longus tendons maintain normal caliber and signal intensity without associated fluid. The peroneus longus and peroneus brevis tendons maintain normal caliber and signal intensity without associated fluid. The Achilles tendon maintains normal caliber and signal intensity without associated fluid. REMAINING SOFT TISSUES: Significant thickening and heterogeneity is identified within the plantar fascia more so in the medial and lateral bands. Findings are noted extending to the insertion on the calcaneus with focal area of fluid signal within the substance of the plantar fascia within the medial head at the insertion consistent with a subtle deep fiber partial tear exemplified on image 32 of series 407. Significant reactive soft tissue edema is seen involving both components with reactive osteitis. Full-thickness fascial tear is not identified The sinus tarsus maintains normal signal intensity on standard T1-weighted images without gross focal abnormalities. ? Procedure Note Tyree Nicole MD - 06/11/2023 DATE OF SERVICE: 06.11.2023 MRI ANKLE/HINDFOOT, LEFT ([id number]) 06/11/2023 8:00 AM CLINICAL INDICATION: Pain of left heel. COMPARISON STUDY: April 15, 2023 radiograph. TECHNIQUE: Axial and sagittal inversion recovery and T1-weighted sequencesas well is coronal inversion recovery and proton density sequences were performed through theankle without the use of contrast material. Imaging was performed on a 3.0 Brittany magnet. ADVERSE REACTION: None. FINDINGS: OSSEOUS STRUCTURES: The visualized osseous structures are homogeneous in signal intensity onboth T1 and T2-weighted images. JOINT SPACES: The visualized joint spaces are well-maintained. There is no evidence ofsignificant erosion, cartilaginous defect or subchondral edema/cyst formation. LIGAMENTOUS STRUCTURES: The deep and superficial deltoid ligaments maintain normal caliber andsignal intensity without evidence of focal tear. The anterior and posterior talofibular, calcaneofibular and the anteriorand posterior tibiofibular ligaments all maintain normal caliber and signal intensity. TENDINOUS STRUCTURES: The anterior tibialis, extensor digitorum longus and extensor hallucislongus tendons maintain normal caliber and signal intensity without associated fluid. The posterior tibialis, flexor digitorum longus and flexor hallucis longustendons maintain normal caliber and signal intensity without associated fluid. The peroneus longus and peroneus brevis tendons maintain normal caliberand signal intensity without associated fluid. The Achilles tendon maintains normal caliber and signal intensity withoutassociated fluid. REMAINING SOFT TISSUES: Significant thickening and heterogeneity is identified within the plantarfascia more so in the medial and lateral bands. Findings are noted extending to the insertion onthe calcaneus with focal area of fluid signal within the substance of the plantar fascia within themedial head at the insertion consistent with a subtle deep fiber partial tear exemplified onimage 32 of series 407. Significant reactive soft tissue edema is seen involving both componentswith reactive osteitis. Full-thickness fascial tear is not identified The sinus tarsus maintains normal signal intensity on standard T1-weightedimages without gross focal abnormalities. ===== IMPRESSION: 1. Subtle partial-thickness tearing along the insertion of the medialband of the plantar fascia with additional inflammatory changes seen throughout both the medial andlateral insertional plantar fascial bands with reactive soft tissue swelling and reactive osteitis. Nogross avulsion fracture with complete fascial tear is identified. Margarita Cotter DPM RIS MRI documented in this encounter Visit Diagnoses Diagnosis Plantar fasciitis, left- Primary Plantar fascial fibromatosis Pain of left heel Pain in limb Pes cavus of both feet Heel spur, left Pain of left heel Pain in limb documented in this encounter Additional Health Concerns Assessment Noted Time A fall risk assessment has been complete d for the patient 04/26/2014 7:59 AM CDT documented as of this encounter Care Teams Occupational Health Nurse Supervisor Relationship Specialty Start Date End Date Jeison Orozco MD PCP - General 12/25/01 08/12/23 documented as of this encounter
--- OUTSIDE RECORDS SUMMARY | 2024-11-07 07:00 | XMS_ITS | Encounter Summary ---
Author Organization [facility] Address [address] [place] [address] Care Team Providers Care Carnallite Plant Operator Name Role Phone Jeison Orozco MD Primary Care Provider Unav ailable Encounter Details Date Type Department Care Team (Late st Contact Info) Description 04/15/2023 11:25 AM CDT Ancillary Procedure Radiology - [facility] [address] [place], [place] [id number] Left foot pain Social History Tobacco Use Types Packs/Day Years [...] st Contact Info) Description 11/24/2024 1:00 PM OPTICAL INSTRUMENTS SUPERVISOR Procedure Surgical Procedure Visit [phone] Titus Vieyra MD [address] [facility] [address] [place] [address] documented as of this encounter Procedures Procedure Name Priority Date/Time Associated Diagnosis Comments XR FOOT, COMPLETE (MIN 3 VIEWS), LEFT ([id number]) Routine 04/15/2023 11:30 AM CDT Left foot pain documented in this encounter Results * XR FOOT, COMPLETE (MIN 3 VIEWS), LEFT ([id number]) (04/15/2023 11:30 AM CDT) Anatomical Region Laterality Modality Foot Left Computed Radiogr aphy 04/15/2023 3:13 PM CDT Impressions 04/15/2023 3:14 PM CDT IMPRESSION: Calcaneal spurs. Degenerative changes. Narrative 04/15/2023 3:14 PM CDT DATE OF SERVICE: 04.15.2023 XR FOOT, COMPLETE (MIN 3 VIEWS), LEFT ([id number]) CLINICAL INDICATION: Left foot pain. 3 views were obtained. COMPARISON: None. FINDINGS: Soft tissue fullness is present lateral to the fifth metatarsal head, nonspecific. Subcutaneous pressure lesion or adventitious bursa could have this appearance. Mild degenerative changes are noted at the first MTP joint/sesamoid apparatus. Metatarsal shafts are intact. Small to moderate-sized plantar calcaneal spur noted. Tiny posterior calcaneal enthesophyte is seen. Procedure Note Guido Santizo MD - 04/15/2023 DATE OF SERVICE: 04.15.2023 XR FOOT, COMPLETE (MIN 3 VIEWS), LEFT ([id number]) CLINICAL INDICATION: Left foot pain. 3 views were obtained. COMPARISON: None. FINDINGS: Soft tissue fullness is present lateral to the fifth metatarsalhead, nonspecific. Subcutaneous pressure lesion or adventitious bursa could have thisappearance. Mild degenerative changes are noted at the first MTP joint/sesamoid apparatus. Metatarsalshafts are intact. Small to moderate-sized plantar calcaneal spur noted. Tiny posterior calcanealenthesophyte is seen. ===== IMPRESSION: Calcaneal spurs. Degenerative changes. Margarita Cotter DPM RIS XRAY documented in this encounter Visit Diagnoses Diagnosis Left foot pain Pain in limb documented in this encounter Additional Health Concerns Assessment Noted Time A fall risk assessment has been complete d for the patient 04/26/2014 7:59 AM CDT documented as of this encounter Care Teams Carnallite Plant Operator Relationship Specialty Start Date End Date Jeison Orozco MD PCP - General 12/25/01 08/12/23 documented as of this encounter
--- OUTSIDE RECORDS SUMMARY | 2024-11-07 07:00 | XMS_ITS | Encounter Summary ---
Author Organization [facility] Address [address] [place] [address] Care Team Providers Care Bark Scaler Name Role Phone Jeison Orozco MD Primary Care Provider Unav ailable Encounter Details Date Type Department Care Team (Late st Contact Info) Description 03/10/2023 Telephone Cardiology - [facility] [place] [address] [facility] [address] [place], [place] [phone] Jl Singleton MD Social History Tobacco Use Types Packs/Day Years [...] as of this encounter Progress Notes * Bettina Antonio RN - 03/10/2023 12:42 PM CDT Pt calling, stated was given order for CTA coronary with calcium scoring. Order . Informed Dr. Camara not with [facility], needs to set up with new public housing manager to do the testing. Stated will call back after looking into it. documented in this encounter Plan of Treatment Upcoming Encounters Date Type Department Care Team (Late st Contact Info) Description 11/24/2024 1:00 PM SENIOR CATEGORY MANAGER Procedure Surgical Procedure Visit [phone] Titus Vieyra MD [address] [facility] [address] [place] [address] documented as of this encounter Visit Diagnoses Not on filedocumented in this encounter Additional Health Concerns Assessment Noted Time A fall risk assessment has been complete d for the patient 04/26/2014 7:59 AM CDT documented as of this encounter Care Teams Bark Scaler Relationship Specialty Start Date End Date Jeison Orozco MD PCP - General 12/25/01 08/12/23 documented as of this encounter
--- OUTSIDE RECORDS SUMMARY | 2024-11-07 07:00 | XMS_ITS | Encounter Summary ---
Author Organization [facility] Address [address] [place] [id number] Care Team Providers Care Manager Transportation Name Role Phone Jeison Orozco MD Primary Care Provider Unav ailable Reason for Visit * Reason Comments Derm Problem Est Pt, 62yo, Possib le cyst located on the posterior shoulder x several months, c/o bothersome to patient, No prev or current txC/o spot of concern located on the L lower leg x 6 months, Pt denies any current symptoms or any known changes at this time, No prev or current tx Encounter Details Date Type Department Care Team (Late st Contact Info) Description 12/31/2022 12:00 PM [facility] Office Visit Dermatology - [address] [phone] Olinda Mcmanus PA-C [address] [facility] [place], [place] [id number] Neoplasm of uncertain behavior of skin (Primary Dx); Epidermal cyst Social History Tobacco Use Types Packs/Day Years [...] Progress Notes * Olinda Mcmanus PA-C - 12/31/2022 12:00 PM CST HPI: Tonya Costello is a 62 year old female. Patient presents with: Derm Problem: Est Pt, 62yo, Possible cyst located on the posterior shoulder x several months, c/o bothersome to patient, No prev or current tx C/o spot of concern located on the L lower leg x 6 months, Pt denies any current symptoms or any known changes at this time, No prev or current tx Personal HX of Skin Cancer: No Personal HX AK's: No Personal HX of Malignant Melanoma: No Family HX of Skin Cancer / Malignant Melanoma: No Other history: No further skin c/o Last Office Visit: 11/01/2021 PHYSICAL EXAM: Weight: 153 lbs Height: 5'6 RR: 14 Skin exam performed as follows: Type 2 skin. Mood appropriate Alert and Oriented X 3. Well developed, well nourished in no distress. Lt upper back and left lower leg checked Lt upper back: 0.8cm subcutaneous nodule with central open punctum. Lt anterior mid lower le.5cm pink, scaling patch ASSESSMENT & PLAN: 1. Epidermal cyst: Pt advised on diagnosis as well as tx options of watchful waiting vs full excision. Discussed full excision procedure, suture placement and down time as well as scarring. Pt electsto monitor but can f/u for [address] Rayo. Pre-op and post-op instructions reviewed and given. 2. Neoplasm of Uncertain Behavior of skin: AK vs BCC Shave excision procedure explained as well as risks of bleeding, bruising, swelling, infection, scarring and recurrence. Consent form signed. Lt anterior mid lower leg prepped with alcohol. Anesthesia with lidocaine with epinephrine. Shave excision performed with open closure. Vaseline and dressing applied. Wound care given and reviewed with patient. Path will be notified in 10-14 days. Final diameter post shave excision: 0.7cm No photo taken, I forgot to take in room. PATIENT EDUCATION: Skin care reviewed. Sun avoidance, protection and SSE reviewed. Questions answered, Risks/Benefits alternatives discussed w/ patient. Scar, infection, bleeding, pain purpura, recurrence. Pt understands RTC pending on path Scribed by: Olinda Mcmanus PA-C [facility] * Olinda Mcmanus PA-C - 12/31/2022 12:00 PM CST Advise pt that pathology was + for a superificial BCC on left lower leg. To treat she is wait untilthe biopsy site is healed then begin Imiquimod cream as a thin coat to affected area and about 1/2 inch around the biopsy site once a day Friday - Friday only with weekends off for 6 weeks. F/U in 8 weeks to recheck. Advise on side effects that skin will look like sunburn, let us know if becomes tender. Rx sent to her pharmacy. [facility] * Meghna Meeks MA - 12/31/2022 12:00 PM CST Spoke to pt and advised of results and treatment. Pt understands and has scheduled a f/u for 03/10 [facility] documented in this encounter Plan of Treatment Upcoming Encounters Date Type Department Care Team (Late st Contact Info) Description 11/24/2024 1:00 PM [facility] [facility] Procedure Surgical Procedure Visit [phone] Titus Vieyra MD [address] [place] [address] [address] [place] [address] Scheduled Orders Name Type Priority Associated Diagnoses Orde r Schedule OFFICE/OUTPT VISIT,EST,LEVL III PROCEDURES Routine Epidermal cyst Ordered: 12/31/2022 SHAV SKIN LES 0.6-1.0CM TRUNK,ARM,LEG PROCEDURES Routine Neoplasm of uncertain behavior of skin Ordered: 12/31/2022 documented as of this encounter Procedures Procedure Name Priority Date/Time Associated Diagnosis Comments SURGICAL PATHOLOGY, TISSUE [id number] PATHOLOGIST Routine 12/31/2022 12:57 PM [facility] Neoplasm of uncertain behavior of skin documented in this encounter Results * Surgical Pathology, Tissue [id number] (12/31/2022 12:57 PM [facility]) Case Report Surgical Pathology Report ? Case: [id number] ? Authorizing Provider: ??Tyree Rayo MD ?Collected: ? 12/31/2022 12:57 PM ? Ordering Location: ? Dermatology - [facility], Received: ?12/31/2022 12:58 PM ? Luly ? Pathologist: ? Carson Joe MD ? Specimen: ?Tissue - Path, Left Anterior Mid Leg, Shave Excision, R/o Actinic Keratoses vs. Basal ? Cell Cracrinoma ? 01/03/2023 8:42 AM [facility] Final Diagnosis Skin, left anterior mid leg, shave excision: -Basal cell carcinoma, superficial type. -The tumor involves the peripheral margin. 01/03/2023 8:42 AM [facility] Gross Description Specimen A: Received in formalin, is a piece of skin, measuring 8 mm. Trisected and entirely submitted. (TS-3-1) 01/03/2023 8:42 AM [facility] Embedded Images 01/03/2023 8:42 AM [facility] Tissue - Path TISSUE SPECIMEN / Unknown 12/31/2022 12:57 PM [facility] 12/31/2022 12:58 PM [facility] [facility] Tyree Rayo MD PATHOLOGY/CYTOLOGY O RDERABLES [facility] [address] [facility], [address] documented in this encounter Visit Diagnoses Diagnosis Neoplasm of uncertain behavior of skin- Primary Epidermal cyst Sebaceous cyst documented in this encounter Additional Health Concerns Assessment Noted Time A fall risk assessment has been complete d for the patient 04/26/2014 7:59 AM CDT documented as of this encounter Care Teams Manager Transportation Relationship Specialty Start Date End Date Jeison Orozco MD PCP - General 12/25/01 08/12/23 documented as of this encounter
--- OUTSIDE RECORDS SUMMARY | 2024-11-07 07:00 | XMS_ITS | Encounter Summary ---
Author Organization [facility] Address [address] [place] [address] Care Team Providers Care Tool Room Lathe Operator Name Role Phone Jeison Orozco MD Primary Care Provider Unav ailable Reason for Visit * Reason Onset Date Comments Condition Update 04/15/2022 Triage 04/15/2022 sinus infection Encounter Details Date Type Department Care Team (Late st Contact Info) Description 04/15/2022 Nurse Triage Internal Medicine - [facility] [address] [facility] [address] [place] [address] Jeison Orozco MD Condition Update; Triage (sinus infection) Social History Tobacco Use Types Packs/Day Years [...] as of this encounter Progress Notes * Myah Arechiga RN - 04/15/2022 9:15 AM CDT Patient calling regarding concern for sinus infection Please see symptoms reported below Advised if symptoms worsen to go to ER, Verbalized understanding Future Appointments Date Time Provider Department Center 04/15/2022 3:00 PM Qian Mathur MD [facility] Reason for Disposition ??? Earache Answer Assessment - Initial Assessment Questions 1. LOCATION: Where does it hurt? Reports pain from bridge of nose and across eyes 2. ONSET: When did the sinus pain start? (e.g., hours, days) Started few weeks to a month ago Worsened in the last week 3. SEVERITY: How bad is the pain? (Scale 1-10; mild, moderate or severe) - MILD (1-3): doesn't interfere with normal activities - MODERATE (4-7): interferes with normal activities (e.g., work or school) or awakens from sleep - SEVERE (8-10): excruciating pain and patient unable to do any normal activities Reports moderate facial pain, and dull constant mild headache Reports minimal relief with tylenol 4. RECURRENT SYMPTOM: Have you ever had sinus problems before? If so, ask: When was the last time? and What happened that time? Reports moderate cough Reports lots of mucus, and post nasal, Reports blood tinged green thick mucus Reports sore throat/ throat pain from irritation and coughing Denies fever 5. NASAL CONGESTION: Is the nose blocked? If so, ask, Can you open it or must you breathe through the mouth? Reports moderate nasal congestion, mild chest congestion 6. NASAL DISCHARGE: Do you have discharge from your nose? If so ask, What color? Thick green mucus 7. FEVER: Do you have a fever? If so, ask: What is it, how was it measured, and when did it start? Denies 8. OTHER SYMPTOMS: Do you have any other symptoms? (e.g., sore throat, cough, earache, difficultybreathing) Reports ear aches and louder high frequency sounds, moderate tinnitus Reports difficulty breathing at night because of sinus clogged Denies nausea/vomiting, abdominal pain 9. : Is there any chance you are ? When was your last menstrual period? n/a Protocols used: DMG SINUS PAIN OR [id number] Nothing further needed from MD or nurse. Closing encounter. * Sheeba Shi - 04/15/2022 9:03 AM CDT Pt stating her cough and sore throat are not getting any better. Patient transferred to [facility] nurse for further assistance. documented in this encounter Plan of Treatment Upcoming Encounters Date Type Department Care Team (Late st Contact Info) Description 11/24/2024 1:00 PM [facility] Procedure Surgical Procedure Visit [phone] Titus Vieyra MD [address] [facility] [address] [place] [address] documented as of this encounter Visit Diagnoses Not on filedocumented in this encounter Additional Health Concerns Assessment Noted Time A fall risk assessment has been complete d for the patient 04/26/2014 7:59 AM CDT documented as of this encounter Care Teams Tool Room Lathe Operator Relationship Specialty Start Date End Date Jeison Orozco MD PCP - General 12/25/01 08/12/23 documented as of this encounter
--- OUTSIDE RECORDS SUMMARY | 2024-11-07 07:00 | XMS_ITS | Encounter Summary ---
Author Organization [facility] Address [address] [place] [address] Care Team Providers Care Cfa Name Role Phone Qian Mathur MD Primary Care Provider [phone] Reason for Visit * Reason Onset Date Comments Medical Question 08/11/2023 Encounter Details Date Type Department Care Team (Late st Contact Info) Description 08/11/2023 Telephone Internal Medicine - [facility] [address] [facility] [address] [place] [address] Qian Mathur MD [address] [facility] [address] [place], [place] [phone] Medical Question Social History Tobacco Use Types Packs/Day Years [...] as of this encounter Progress Notes * Ailyn Longoria - 08/13/2023 9:52 AM CDT Future Appointments Date Time Provider Department Center 08/13/2023 11:15 AM Qian Mathur MD [facility] 01/13/2024 10:45 AM Olinda Mcmanus PA-C [facility] * Rebeca Kurtz RN - 08/12/2023 11:30 AM CDT Routed to front desk receptionist for scheduling. Thank you! Future Appointments Date Time Provider Department Center 01/13/2024 10:45 AM Olinda Mcmanus PA-C [facility] * Qian Mathur MD - 08/12/2023 9:31 AM CDT I didn't see her so needs to be seen. Please overbook w/ w/ tomorrow or w/ [employer] today * Meredith Carmona - 08/11/2023 11:39 AM CDT Caller with general medical question. Patient request a new prescription for shingles after her visit in [facility] Care last 08/09/2023. Action taken/offered: Appt offered: N/A SDA: N/A Partners: N/A Routing to triage pool for follow up. documented in this encounter Plan of Treatment Upcoming Encounters Date Type Department Care Team (Late st Contact Info) Description 11/24/2024 1:00 PM CHIEF MATE Procedure Surgical Procedure Visit [phone] Titus Vieyra MD [address] [place] [address] [address] [place] [address] documented as of this encounter Visit Diagnoses Not on filedocumented in this encounter Additional Health Concerns Assessment Noted Time A fall risk assessment has been complete d for the patient 04/26/2014 7:59 AM CDT documented as of this encounter Care Teams Cfa Relationship Specialty Start Date End Date Qian Mathur MD [address] [facility] [address] [place] [address] PCP - General Internal Medicine 08/13/23 06/06/24 documented as of this encounter
--- OUTSIDE RECORDS SUMMARY | 2024-11-07 07:00 | XMS_ITS | Encounter Summary ---
Author Organization [facility] Address [address] [place] [address] Care Team Providers Care Wireless Team Member Name Role Phone Jeison Orozco MD Primary Care Provider Unav ailable Reason for Visit * Reason Comments Fever spiked 102 fever las t night Covid covid + 03/24. sympto ms started 03/22. Headache Encounter Details Date Type Department Care Team (Late st Contact Info) Description 03/26/2022 11:20 AM CDT Office Visit [facility] [place] [place] [address] [place], [place] [address] Jazzy Gonzales NP [address] [place], [place] [id number] COVID-19 (Primary Dx) Social History Tobacco Use Types [...] Sign Reading Time Taken Comments Blood Pressure 125/75 03/26/2022 11:12 AM CDT Pulse 76 03/26/2022 11:12 AM CDT Temperature 36.4 ??C (97.5 ??F) 03/26/2022 11:12 AM C DT Respiratory Rate 16 03/26/2022 11:12 AM CDT Oxygen Saturation 98% 03/26/2022 11:12 AM CDT Inhaled Oxygen Concentration - - Weight 68 kg (150 lb) 03/26/2022 11:12 AM CDT Height 167.6 cm (5' 6 ) 03/26/2022 11:12 AM CDT Body Mass Index 24.21 03/26/2022 11:12 AM CDT documented in this encounter Functional Status Functional Status Response Date of Assess ment Hearing Problems? No 12/17/2021 Vision Problems? No 12/17/2021 Difficulty walking? No 12/17/2021 Difficulty dressing or bathing? No 12/17/2021 Problems with daily activities? No 12/17/2021 Cognitive Status Response Date of Assessm ent Memory Problems? No 12/17/2021 documented as of this encounter Patient Instructions * Patient Instructions* Jazzy Gonzales NP - 03/26/2022 11:20 AM CDT You were diagnosed with COVID-19 (primary encounter diagnosis) Diagnosis made at the [facility] are typically made on a provisional basis. Treatment: Stay warm, and well hydrated. Stay as active as you can tolerate safely. Make sure you move around throughout the day. Staying physically active is important to prevent the development of blood clots, which COVID19 infection can cause. For symptoms such as headache and bodyache or high fevers, if hydration is not helping, consider taking: acetaminophen (Tylenol) for discomfort or high fevers. Dose: 1000 mg every 6 hours as needed. For congestion, a daily dose of non-sedating anti-histamine can be helpful, such as Loratadine (Claritin) or Cetirizine (Zyrtec) 10 mg daily Or fexofenadine (Jazmín) 180 mg daily, or levocetirizine (Xyzal) 5 mg daily Medications Prescribed: Requested Prescriptions Signed Prescriptions Disp Refills ? ? nirmatrelvir & ritonavir (PAXLOVID) 20 x 150 MG & 10 x 100MG Oral Tablet Therapy Pack 30 tablet 0 Sig: Take two nirmatrelvir tablets (300mg) with one ritonavir tablet (100mg) together twice daily for 5 days. ??? benzonatate 200 MG Oral Cap 21 capsule 0 Sig: Take 1 capsule (200 mg total) by mouth 3 (three) times daily as needed for cough. The COVID19 Team at [facility] recommends you complete following treatment for adults that have contracted COVID19 in order to reduce your risk of developing a serious case of COVID19. Take a multivitamin daily if you currently have it, OR for the duration of your symptoms (or up to 14 days if you have been exposed without symptoms): Vitamin D 5000 IU daily and Vitamin C 500 mg twice a day. Use of pulse oximeter: check your oxygen level once to twice a day. Normal is 96% or higher. Typically serious signs and symptoms begin during the second week of symptoms. If your level drops below the current level, please call to be reassessed. If your oxygen level is below 90%, you should seek emergency care right away. Follow up with [facility] if COVID symptoms worsen for a re-evaluation of your condition. Obtain a pulse oximeter if you can get your hand on one, check your oxygen level 3-4 times a day. Normal is 96% or higher. Typically serious signs and symptoms begin during the second week of symptoms. If your level drops below 94%, please call to be reassessed. Before seeking care, call your healthcare provider and tell them that you have, or are being evaluated for, COVID-19. Put on a facemask before you enter the facility. These steps will help the healthcare provider's office to keep other people in the office or waiting room from getting infected or exposed. Persons who are placed under active monitoring or facilitated self- monitoring should follow instructions provided by their local health department oroccupational health professionals, as appropriate. If your condition worsens or does not improve as expected, call the [facility] at . If you are experiencing significant difficulty breathing, or any condition that seems life-threatening, please call [phone]. Symptoms consistent with COVID 19 include: headache, body aches, cough, fever, sore throat, and later in the course you may develop shortness of breath. Most individuals will recover well after COVID19 infection, however, if you develop shortness of breath, or chest discomfort and have not been evaluated by healthcare provider for these symptoms, or if your breathing has worsened since you last saw a healthcare provider, you should be evaluated (again). If you develop severe difficulty breathing, you should call 911 to be transported to an emergency department. If you have a medical emergency and need to call 911, notify the dispatch personnel that you may have, or are being evaluated for C OVID-19. If possible, put on a facemask before emergency medical services arrive. Like influenza, COVID 19 is highly contagious. Stay home except to get medical care. Do not go to work, school, or public areas. Avoid using public transportation, ride-sharing, or taxis. Discontinuing home isolation Patients with confirmed COVID-19 should remain under home isolation precautions until the risk of secondary transmission to others is thought to be low. The decision to discontinue home isolation precautions should be made on a [id number] basis, in consultation with healthcare providers and stateand local health departments. You should not attend school or work while you are suspected or diagnosed with this infection until you have completed recommended quarantine period. Based on the clinical information available at the time of this visit, it is recommended that you return home and stay home for a minimum of 5 days from the first day of your COVID19 symptoms, AND have been 24 hours fever-free, and symptoms are resolving. You should continue to wear a mask in public or around other close contacts for 5 more days AFTER your discontinue quarantine. Notify those you have exposed to Be sure to notify anyone you have exposed 2 days prior to onset of symptoms until now to ensure appropriate quarantine and testing is carried out by the exposed. Individuals you have been in close contact with during this time that have not been vaccinated or overdue for their booster vaccination may need to undergo quarantine procedures. For more information on quarantine guidelines after exposure, please refer to CDC.gov. Separate yourself from other people and animals in your home Please take all measures possible to isolate yourself from other household members via distancing and avoid sharing household items. Wash your hands thoroughly and often. If you have any family members that are immunocompromised (cancer, advanced age, have diabetes, or other illness that put them at increased risk when they get sick), they should contact their doctor. As much as possible you should stay in a specific room and away from other people in your home. If possible use a separate bathroom. Do not handle pets or other animals while sick. Cover your coughs and sneezes Cover your mouth and nose by leaving your mask on, or when unmasked- with a tissue, when you cough or sneeze. Throw used tissues in a lined trash can; immediately wash your hands with soap and water for at least 20 seconds or clean your hands with analcohol-based hand model builder that contains at least 60%-70% alcohol covering all surfaces of your hands and rubbing them together until they feel dry. Soap and water should be used preferentially if hands are visibly dirty. If you have not signed up for [employer], please do so as soon as possible. The [employer] portal allow you to access test results, easy appointment scheduling, after visit summaries, and letters you may need from your provider. To sign up for [employer], please call the [employer] helpdesk at [phone] DO NOT FLUSH unused medications down a toilet or any waste water stream. For information on proper and safe disposal of medications you are no longer taking, contact your local police station for the nearest medication disposal drop off site, or visit [email or web address] , & click on MEDICATION DISPOSAL documented in this encounter Progress Notes * Jazzy Gonzales NP - 03/26/2022 11:20 AM CDT Tonya Costello is a 61 year old female who presented today for consult and evaluation for [id number] with risk factors for serious disease progression. History of Present Illness: Duration: onset of symptoms: 5 days ago Context: Symptoms consist of allergy type symptoms body aches cough fever. Vaccinated and boosted last vaccine was 5 months ago + chills + fever, dry cough, + nasal congestion, + sore throat + muscle aches, + headache, no shortness of breath, no wheezing no loss of smell / taste, no anorexia no diarrhea, no nausea no vomiting + fatigue, no confusion Associated symptoms: denies lightheaded Patient has not been physically assessed prior to this encounter for current course of illness due to COVID19. Has high risk history of A. fib with ablation, no anticoagulants. Workup so far include: SARS-Cov-2 antigen: that was positive on 03/24, symptoms 03/22/28 Review Of Systems: Except as otherwise noted above / HPI, rest of ROS was unremarkable Allergy / Adverse Reaction History: reviewed Penicillins RASH Medications: reviewed Current Outpatient Medications Medication Sig Dispense Refill ? ? nirmatrelvir & ritonavir (PAXLOVID) 20 x 150 MG & 10 x 100MG Oral Tablet Therapy Pack Take two nirmatrelvir tablets (300mg) with one ritonavir tablet (100mg) together twice daily for 5 days. 30 tablet 0 ??? benzonatate 200 MG Oral Cap Take 1 capsule (200 mg total) by mouth 3 (three) times daily as needed for cough. 21 capsule 0 ??? zolpidem 5 MG Oral Tab Take 1 tablet (5 mg total) by mouth daily. 30 tablet 0 ??? triamcinolone acetonide 0.1 % External Cream Apply to rash of back twice daily prn itch. 30 g 0 ??? Nutritional Supplements (JUICE PLUS FIBRE OR) Take by mouth. ??? Cholecalciferol (VITAMIN D) 1000 units Oral Tab Take by mouth. ??? TURMERIC OR Take by mouth. Past Medical History: reviewed Past Medical History: Diagnosis Date ??? AF (atrial fibrillation) (HCC) 06/21/2013 ??? Arrhythmia PAF, ablation 03/2014 ??? STAR (obstructive sleep apnea) 01/15/22-PSG AHI-14 ??? Tinnitus x years (had seen ENT) Surgical History Past Surgical History: Procedure Laterality Date ??? COLONOSCOPY 05/04/15 Diverticulosis. Tattoo at 40 cm unremarkable. 10 mm flat cecal polyp (hp). 18 mm flat ascending adenoma s/p tattoo/piecemeal resection. 3 mm transverse serrated. repeat 3-6 months ??? COLONOSCOPY 11/2015 unremarkable tattoos in ascending and 50 cm, small descending adenoma, diverticulosis. repeat 3 years ??? COLONOSCOPY FLX W/ENDOSCOPIC MUCOSAL RESECTION N/A 05/04/2015 ??? COLONOSCOPY,BIOPSY 08/03/2012 small cecal and ascending colon polps. Also, 13 mm flat polyp at about 40 cm from anus was tattooedwas adenoma. Joaquin-colonic diverticulosis ??? COLONOSCOPY,BIOPSY N/A 05/04/2015 ??? COLONOSCOPY,REMV LESN,SNARE 08/03/2012 ??? COLONOSCOPY,REMV LESN,SNARE N/A 05/04/2015 ??? COLONOSCPY, FLEXIBLE, PROXIMAL TO SPLENIC FLEXURE; W/DIRECTED SUBMUCOSA INJECTION(S), ANY SUBSTANCE 08/03/2012 ??? OTHER SURGICAL HISTORY facial plastic surgery ??? REMOVAL OF COCCYX broken coccyx, fall / childbirth/jet ski ??? SIGMOIDOSCOPY,BIOPSY 01/11/2013 3 mm sigmoid polyp was adenoma. No recurrent polyp at tattoo site at 40 cm Social History: reviewed Social History Tobacco Use Smoking status: Former Smoker Years: 10.00 Smokeless tobacco: Never Used Tobacco comment: quit 26 yrs ago Vaping Use Vaping Use: Never used Alcohol use: Yes Comment: socially, 7 drinks/week Drug use: No otherwise negative to presenting illness. Family History: reviewed Otherwise negative to presenting infectious illness. PHYSICAL EXAM: BP 125/75 Pulse 76 Temp 97.5 ??F (36.4 ??C) (Temporal) Resp 16 Ht 5' 6 (1.676 m) Wt 150 lb (68 kg) SpO2 98% BMI 24.21 kg/m?? Face to face encounter was performed with PPE including a N95 respirator CONST: Vital signs reviewed. acute distress: no respiratory distress, non-toxic. age appropriate EYES: conjunctivae without pallor, lids normal, sclera anicteric. HEAD, EARS, NOSE, MOUTH, THROAT: normal cephalic. external ears and nose normal appearing. no nasal flaring oral mucosa moist. Pharynx: mild erythema, uvula midline, no exudates NECK: No swelling or mass, full range of motion. RESP: effort normal, no stridor, no retractions, no accessory muscle use, breath sounds: no wheezing, no rales CV: normal rate, regular rhythm, S1 and S2 without S3/S4 gallop, no murmur, peripheral edema: none capillary refill 2 sec. MUSC/SKELETAL: no extremity tenderness. no leg swelling. SKIN: warm, dry, normal color, no rash, no signs of bruising. NEURO: alert & oriented, speech normal, motor strength intact, sensation intact, PSYCH: mood & affect normal, speech normal, thought process normal for age. ASSESSMENT AND PLAN: DIFFERENTIAL DIAGNOSIS: COVID-19 (primary encounter diagnosis) COVID 19 Inclusion Criteria for Anti-SARS CoV-2 mAb infusion (must include at minimum one criteria) Age >= 12 and over 40 Kg (>88 Lb) with: [] Immunosuppressive disease or Receiving immunosuppressive treatment* [] [] Age >= 65 years [] BMI >25 kg/m2 [] Diabetes [x] Cardiovascular disease (Congenital or acquired heart disease) or hypertension [] Sickle cell disease [] COPD/asthma/ cystic fibrosis/interstitial lung disease/Pulmonary hypertension/ other chronic lung disease [] Neurodevelopmental disorders (e.g. cerebral palsy), other condition that confer medical complexity such as severe congential, metabolic or other genetic disorders [] Medical-related technological dependence [e.g., tracheostomy, gastrostomy, or positive pressure ventilation (not related to COVID)] [] Chronic kidney disease [] Other high risk criteria, e.g medical conditions or factors (for example, race or ethnicity) mayalso place individual patients at high risk for progressing to severe COVID-19 : SARS CoV2 PCR or Antigen positive on 03/24 First COVID19 symptom developed 5 days ago. MDM: Overall symptomatic but well-appearing 61-year-old without high risk past medical history, hashistory of A. fib which resolved after ablation years ago. Patient is day 5 of infection with fever, body aches, harsh spastic bronchial cough. Comes [facility] requesting Paxlovid been. We discussed Paxlovid versus monoclonal antibodies. She would like to trial oral antivirals we will start them today. We discussed chest x-ray today she like to defer plan for Tessalon for cough suppression. We discussed COVID instructions and COVID red flags she will seek reevaluation for new or worsening symptoms. We discussed interaction apixaban and zolpidem patient states she takes this once every few months and will not take it during this time has not taken it recently. Patient is overall nontoxic with reassuring vitals she will seek reevaluation for new or worsening symptoms. REVIEW OF WORKUP Orders Placed This Encounter nirmatrelvir & ritonavir (PAXLOVID) 20 x 150 MG & 10 x 100MG Oral Tablet Therapy Pack benzonatate 200 MG Oral Cap No results found for this or any previous visit (from the past 12 hour(s)). . DIAGNOSIS AT DISCHARGE: COVID-19 (primary encounter diagnosis) Meds for this Visit: Requested Prescriptions Signed Prescriptions Disp Refills ? ? nirmatrelvir & ritonavir (PAXLOVID) 20 x 150 MG & 10 x 100MG Oral Tablet Therapy Pack 30 tablet 0 Sig: Take two nirmatrelvir tablets (300mg) with one ritonavir tablet (100mg) together twice daily for 5 days. ??? benzonatate 200 MG Oral Cap 21 capsule 0 Sig: Take 1 capsule (200 mg total) by mouth 3 (three) times daily as needed for cough. Plan: covid 19- paxlovid Including hydration, acetaminophen. Supportive Care - see patient instructions Continue Self-Isolation for minimum 5 days from today, 24 hours symptom/fever free, stay masked around others until day 10. Referral to: The patient was advised to return to immediate care if COVID19 symptom worsen after today at the [facility] All question were answered regarding treatment, post treatment considerations, quarantine, immunoprotection, etc. The patient indicates understanding of these issues and agrees to the plan. documented in this encounter Plan of Treatment Upcoming Encounters Date Type Department Care Team (Late st Contact Info) Description 11/24/2024 1:00 PM ORTHOPEDIC PHYSICIAN ASSISTANT Procedure Surgical Procedure Visit [phone] Titus Vieyra MD [address] [place] [address] [address] [place] [address] documented as of this encounter Visit Diagnoses Diagnosis COVID-19- Primary documented in this encounter Additional Health Concerns Assessment Noted Time A fall risk assessment has been complete d for the patient 04/26/2014 7:59 AM CDT documented as of this encounter Care Teams Wireless Team Member Relationship Specialty Start Date End Date Jeison Orozco MD PCP - General 12/25/01 08/12/23 documented as of this encounter
--- OUTSIDE RECORDS SUMMARY | 2024-11-07 07:00 | XMS_ITS | Encounter Summary ---
Author Organization [facility] Address [address] [place] [address] Care Team Providers Care Client Care Specialist Name Role Phone Jeison Orozco MD Primary Care Provider Unav ailable Reason for Visit * Reason Comments Consult Client Care Specialist presents for new orthotics. Other Seen in 11/12/18 Spra in of anterior talofibular ligament of right ankle, Encounter Details Date Type Department Care Team (Late st Contact Info) Description 08/28/2022 10:50 AM CDT Office Visit Podiatry - [facility] [address] [place] [address] Margarita Cotter, DP [address] [place] [address] Plantar fasciitis, right (Primary Dx); Hav (hallux abducto valgus), left Social History Tobacco Use Types Packs/Day [...] PM CDT Sexual Orientation Not on file COVID-19 Exposure Response Date Recorded In the last 10 days, have yo u been in contact with someone who was confirmed or suspected to have Coronavirus/COVID-19? No / Unsure 08/28/2022 10:50 AM CDT documented as of this encounter Functional Status Functional Status Response Date of Assess ment Hearing Problems? No 12/17/2021 Vision Problems? No 12/17/2021 Difficulty walking? No 12/17/2021 Difficulty dressing or bathing? No 12/17/2021 Problems with daily activities? No 12/17/2021 Cognitive Status Response Date of Assessm ent Memory Problems? No 12/17/2021 documented as of this encounter Progress Notes * Margarita Cotter, DPM - 08/28/2022 10:50 AM CDT Tonya Costello is a 61 year old female. Patient presents with: Consult: Client Care Specialist presents for new orthotics. Other: Seen in 11/12/18 Sprain of anterior talofibular ligament of right ankle, Allergies: Penicillins RASH Current Meds: Current Outpatient Medications Medication Sig Dispense Refill azithromycin (ZITHROMAX Z-JASON) 250 MG Oral Tab [...] OR Take by mouth. Patient presents with: Consult: Client Care Specialist presents for new orthotics. Other: Seen in 11/12/18 Sprain of anterior talofibular ligament of right ankle, Patient presents to office today requesting to order new custom molded orthotics. She has a historyof plantar fasciitis on the right foot. Orthotics have been very helpful in keeping the symptoms under control. PHYSICAL EXAM: Integument: Warm, dry, and supple bilateral. There is positive pedal hair growth bilateral. There are no changes in skin coloration. There are no open lesions and there are no signs of infection. Vascular: Dorsalis pedis and posterior tibial pulses are 2/4 bilaterally. Capillary filling time is less than 3 seconds to digits 1 through 5 bilaterally. There is no peripheral edema noted. Neurologic: Grossly intact to sharp/dull, light touch, and proprioception bilaterally. Musculoskeletal: Muscle strength is 5/5 supinators and pronators. Joints are congruous, equal, and pain-free. There is a laterally deviated hallux left. STJ has normal ROM and there is normal excursion of the 1st ray bilateral ly. ASSESSMENT/ PLAN: History of plantar fasciitis right foot Hallux abductovalgus left Plan: Patient was offered the option of checking into insurance coverage and referral approval prior to proceeding with orthotics casting/scanning and order. Pt declined. Pt requested to proceed with orthotic casting/scanning and order today. Patient was evaluated for orthotics. Foam impressions were obtained of bilateral foot. When orthotics arrive they are advised to f/u. Biomechanical exam performed today. Orthotic prescription completed. ID#[id number] O DIRECTOR documented in this encounter Plan of Treatment Upcoming Encounters Date Type Department Care Team (Late st Contact Info) Description 11/24/2024 1:00 PM AUDIO DIRECTOR Procedure Surgical Procedure Visit [phone] Titus Vieyra MD [address] [place] [address] Scheduled Orders Name Type Priority Associated Diagnoses Orde r Schedule FOOT, INSERT, REMOVABLE, 'UCB' TYPE PROCEDURES Routine Plantar fasciitis, right Hav (hallux abducto valgus), left Ordered: 09/01/2022 IMPRESSION CASTING FT PROCEDURES Routine Plantar fasciitis, right Hav (hallux abducto valgus), left Ordered: 09/01/2022 OFFICE/OUTPT VISIT,NEW,LEVL III PROCEDURES Routine Plantar fasciitis, right Hav (hallux abducto valgus), left Ordered: 09/01/2022 documented as of this encounter Visit Diagnoses Diagnosis Plantar fasciitis, right- Primary Plantar fascial fibromatosis Hav (hallux abducto valgus), left documented in this encounter Additional Health Concerns Assessment Noted Time A fall risk assessment has been complete d for the patient 04/26/2014 7:59 AM CDT documented as of this encounter Care Teams Client Care Specialist Relationship Specialty Start Date End Date Jeison Orozco MD PCP - General 3/1/02 10/17/23 documented as of this encounter
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
--- OUTSIDE RECORDS SUMMARY | 2024-11-07 07:00 | XMS_ITS | Encounter Summary ---
Author Organization [facility] Address [address] [place] [address] Care Team Providers Care Middle [employer] Math Teacher Name Role Phone Jeison Orozco MD Primary Care Provider Unav ailable Reason for Visit * MRI (Routine) - Closed Specialty Diagnoses / Procedures Referred By Delmi zee Referred To Contact Radiology Diagnoses Pain of left heel Procedures MRI ANKLE/HINDFOOT, LEFT ([id number]) Margarita Cotter, DPM [address] [facility] [address] [place] [address] Referral ID Status Reason Start Date Expiration Date Visits Re quested Visits Authorized [id number] Closed 05/30/2023 05/28/2024 1 1 Encounter Details Date Type Department Care Team (Latest Contact Info) Description 06/11/2023 8:00 AM CDT Ancillary Procedure Radiology - [facility], [address] [place] [address] Pain of left heel Social History Tobacco Use Types Packs/Day Years [...] of this encounter Progress Notes * Margarita Cotter DPM - 06/11/2023 8:00 AM CDT MRI showed: Subtle partial-thickness tearing along the insertion of the medial band of the plantar fascia with additional inflammatory changes seen throughout both the medial and lateral insertional plantar fascial bands with reactive soft tissue swelling and reactive osteitis. Given that you have failed to improve with prior injections, these MRI findings can often be improved upon by immobilizing in a boot. Please follow-up in office for discussion. documented in this encounter Plan of Treatment Upcoming Encounters Date Type Department Care Team (Late st Contact Info) Description 11/24/2024 1:00 PM PHOTO STUDIO ASSISTANT Procedure Surgical Procedure Visit [phone] Titus Vieyra MD [address] [place] [address] [address] [place] [address] documented as of this encounter Procedures Procedure Name Priority Date/Time Associated Diagnosis Comments MRI ANKLE/HINDFOOT, LEFT ([id number]) Routine 06/11/2023 8:26 AM CDT Pain of left heel documented in this encounter Results * MRI ANKLE/HINDFOOT, LEFT ([id number]) (06/11/2023 8:26 AM CDT) Anatomical Region Laterality [...] DATE OF SERVICE: 06.11.2023 MRI ANKLE/HINDFOOT, LEFT ([id number]) ??06/11/2023 8:00 AM CLINICAL INDICATION: Pain of [...] DATE OF SERVICE: 06.11.2023 MRI ANKLE/HINDFOOT, LEFT ([id number]) 06/11/2023 8:00 AM CLINICAL INDICATION: Pain of [...] documented in this encounter Visit Diagnoses Diagnosis Pain of left heel Pain in limb documented in this encounter Additional Health Concerns Assessment Noted Time A fall risk assessment has been complete d for the patient 04/26/2014 7:59 AM CDT documented as of this encounter Care Teams [employer] Math Teacher Relationship Specialty Start Date End Date Jeison Orozco MD PCP - General 12/25/01 08/12/23 documented as of this encounter
--- OUTSIDE RECORDS SUMMARY | 2024-11-07 07:00 | XMS_ITS | Encounter Summary ---
Author Organization [facility] Address [address] [place] [address] Care Team Providers Care Senior Loan Processor Name Role Phone Qian Mathur MD Primary Care Provider [phone] Reason for Visit * Reason Onset Date Comments Orthotic Status 10/11/2022 Encounter Details Date Type Department Care Team (Late st Contact Info) Description 10/11/2022 Telephone Orthopaedics - [facility] [address] [facility] [address] [place] [address] Margarita Cotter, KALYN [address] [facility] [address] [place] [address] Orthotic Status Social History Tobacco Use Types Packs/Day Years [...] as of this encounter Progress Notes * Nicole Haile - 11/22/2022 2:14 PM CST .Caller prefers to be notified via: MyChart: [] Callback: [x] Patient would like to make a follow up about the orthotics, she never receive or even heard any after the appt last 08/28. Please call and advise,Thank you. STAINER * Nicolasa Pandya MA - 10/11/2022 1:38 PM CST Advised pt custom orthotics have been received at the [place] [facility] and to schedule an appt to be fitted. STAINER documented in this encounter Plan of Treatment Upcoming Encounters Date Type Department Care Team (Late st Contact Info) Description 11/24/2024 1:00 PM EDGE STAINER Procedure Surgical Procedure Visit [phone] Titus Vieyra MD [address] [place] [address] [address] [place] [address] documented as of this encounter Visit Diagnoses Not on filedocumented in this encounter Additional Health Concerns Assessment Noted Time A fall risk assessment has been complete d for the patient 04/26/2014 7:59 AM CDT documented as of this encounter Care Teams Senior Loan Processor Relationship Specialty Start Date End Date Qian Mathur MD [address] [facility] [address] [place] [address] PCP - General Internal Medicine 08/13/23 06/06/24 documented as of this encounter
--- OUTSIDE RECORDS SUMMARY | 2024-11-07 07:00 | XMS_ITS | Encounter Summary ---
Author Organization [facility] Address [address] [place] [address] Care Team Providers Care Electrician Underground Name Role Phone Qian Mathur MD Primary Care Provider [phone] Reason for Visit * Reason Comments Nose Problem Bleeding since last / only when blowing nose Encounter Details Date Type Department Care Team (Late st Contact Info) Description 10/24/2023 1:00 PM CHILD CARE EDUCATION COORDINATOR Office Visit Internal Medicine - [facility] [address] [place] [address] Rom Du APRN [address] [place], [place] [id number] General medical exam (Primary Dx); Body rash; Frequent nosebleeds; Mild anemia; Petechiae Social History Tobacco Use Types Packs/Day Years [...] Sign Reading Time Taken Comments Blood Pressure 126/76 10/24/2023 1:07 PM CHILD CARE EDUCATION COORDINATOR Pulse 61 10/24/2023 1:07 PM CHILD CARE EDUCATION COORDINATOR Temperature 36.4 ??C (97.6 ??F) 10/24/2023 1:07 PM CS T Respiratory Rate - - Oxygen Saturation 99% 10/24/2023 1:07 PM CHILD CARE EDUCATION COORDINATOR Inhaled Oxygen Concentration - - Weight 70.8 kg (156 lb) 10/24/2023 1:07 PM CHILD CARE EDUCATION COORDINATOR Height - - Body Mass Index 24.8 08/13/2023 11:19 AM CDT documented in this [...] * Patient Instructions* Rom Du APRN - 10/24/2023 1:00 PM CHILD CARE EDUCATION COORDINATOR Tonya Jorge Luis presented for an appointment today to evaluate your skin rash and nosebleeds. Based on your symptoms and your exam today, we will draw your blood and try to better evaluate the cause. We'll repeat a CBC in 2 weeks and we'll see what Dermatology says. Please follow up with us in several weeks to ensure resolution. Please follow up with us as needed and message if you have further questions or concerns. We wish you well and stay safe. D CARE EDUCATION COORDINATOR * Attachments The following attachments cannot be sent through Care Everywhere. * Nosebleed ([place]) * Dermatitis, Contact, Understanding ([place]) documented in this encounter Progress Notes * Rom Du APRN - 10/24/2023 1:00 PM CST Subjective: Patient ID: Tonya Costello is a 62 year old female presenting for evaluation of skin rash. HPI: 1 week ago acute rash. Both arms, lower back, lower leg, toe blister. No pain, itchiness, fevers. Using aloe and lotion. Took benadryl and zyrtec without response. Went to [facility] 10/19. Prescribed prednisone 40mg for 5 days with improvement. Also with intermittent nose bleeding only seen with blowing nose. Notices scabs, blood streaked mucus. No acute liquid blood draining that requires held pressure to nose. Has had covid 4 times. Recent shingles infection 08/09 on her left side. Completed 1 week course of famciclovir. Reports minor scarring and near complete resolution. Reports lower leg redness that is different from upper body rash. Denies rash involvement to vaginaand perianal areas. Overall, denies pain, headache, dizziness, lightheadedness, fevers, hearing/vision changes, chest pain, dyspnea, palpitations, N/V/D, weakness, parasthesias. History/Other: Past Medical History: Diagnosis Date AF [...] TO SPLENIC FLEXURE; W/DIRECTED SUBMUCOSA INJECTION(S), ANY JHAASPEDW80/8/2012 OTHER SURGICAL HISTORY facial plastic surgery REMOVAL [...] No Review of Systems Constitutional: Negative for chills, diaphoresis, fatigue and fever. HENT: Negative. Eyes: Negative. Respiratory: Negative. Cardiovascular: Negative. Gastrointestinal: Negative. Endocrine: Negative. Genitourinary: Negative. Musculoskeletal: Negative. Skin: Positive for color change and rash. Allergic/Immunologic: Negative. Negative for environmental allergies and immunocompromised state. Neurological: Negative. Hematological: Negative for adenopathy. Does not bruise/bleed easily. Current Outpatient Medications Medication Sig Dispense Refill [...] Take by mouth. Allergies: Penicillins RASH Objective: Physical Exam Constitutional: General: She is not in acute distress. Appearance: Normal appearance. She is not ill-appearing. HENT: Head: Normocephalic and atraumatic. Right Ear: Tympanic membrane, ear canal and external ear normal. Left Ear: Tympanic membrane, ear canal and external ear normal. Nose: Right Nostril: Epistaxis present. Comments: Bilateral erythematous nares Mouth/Throat: Mouth: Mucous membranes are moist. Pharynx: Oropharynx is clear. No oropharyngeal exudate or posterior oropharyngeal erythema. Eyes: Extraocular Movements: Extraocular movements intact. Conjunctiva/sclera: Conjunctivae normal. Cardiovascular: Rate and Rhythm: Normal rate and regular rhythm. Pulses: Normal pulses. Heart sounds: Normal heart sounds. No murmur heard. Pulmonary: Effort: Pulmonary effort is normal. No respiratory distress. Breath sounds: Normal breath sounds. No wheezing. Abdominal: General: Bowel sounds are normal. Palpations: Abdomen is soft. Musculoskeletal: General: No swelling, tenderness or signs of injury. Normal range of motion. Cervical back: Normal range of motion and neck supple. No rigidity. Right lower leg: No edema. Left lower leg: No edema. Skin: General: Skin is warm and dry. Capillary Refill: Capillary refill takes less than 2 seconds. Findings: Erythema and rash present. Neurological: General: No focal deficit present. Mental Status: She is alert and oriented to person, place, and time. Mental status is at baseline. Latest Reference Range & Units 10/24/23 13:58 [...] Bilirubin, Total 0.00 - 1.20 mg/dL 0.27 PROTEIN, TOTAL 6.4 - 8.3 g/dL 6.8 Albumin 3.5 - 5.2 g/dL 4.2 C-REACTIVE PROTEIN <=0.50 mg/dL <0.30 Patient Fasting? No TSH 0.270 - 4.200 mIU/L 3.640 KRISTA [...] SED RATE 0 - 20 mm/hr 10 (H): Data is abnormally high (L): Data is abnormally low Assessment & Plan: Diagnoses and all orders for this visit: General medical exam Body rash Frequent nosebleeds Mild anemia Petechiae Rash resolving per patient. Raised, patches of erythema on bilateral arms, legs, thighs, back. No evidence of facial, oral, nasal, vaginal or perinanal involvement. Bilateral legs with diffuse widespread petechiae. Inflammatory markers including ESR and CRP negative. KRISTA negative. Platelet count stable. Hemoglobin showing mild anemia at 11.9. Dermatology appointment 10/28/23. Recheck CBC in 2 weeks. Patient to seek emergency care if rash suddenly worsens or has uncontrolled epistaxis. Orders placed: - CBC WITH DIFFERENTIAL WITH PLATELET; Future - COMPREHENSIVE METABOLIC PANEL; Future - TSH W REFLEX TO FREE T4; Future - C-REACTIVE PROTEIN (CRP), QUANTITATIVE; Future - SEDIMENTATION RATE (ESR); Future - ANTINUCLEAR ANTIBODIES (KRISTA), QUALITATIVE, BY MULTIPLEX IMMUNOASSAY; Future Meds This Visit: Requested Prescriptions No prescriptions requested or ordered in this encounter Imaging & Referrals: None Time spent consulting, evaluating, and coordinating plan of care for patient was 30 minutes. D CARE EDUCATION COORDINATOR documented in this encounter Plan of Treatment Upcoming Encounters Date Type Department Care Team (Late st Contact Info) Description 11/24/2024 1:00 PM CHILD CARE EDUCATION COORDINATOR Procedure Surgical Procedure Visit [phone] Titus Vieyra MD [address] [place] [address] documented as of this encounter Results * ANTINUCLEAR ANTIBODIES (KRISTA), QUALITATIVE, BY MULTIPLEX IMMUNOASSAY (10/24/2023 1:58 PM CHILD CARE EDUCATION COORDINATOR) KRISTA Screen Negative Negative 10/25/2023 2:50 PM CHILD CARE EDUCATION COORDINATOR [facility] Comment:The KRISTA Screen is ne gative for the following antibodies: dsDNA, Chromatin, Ribosomal P, SS-A, SS-B, Centromere B, [place], SmRNP, SALESMAN/OWNER, SCL-70, and Neda-1 Blood Venipuncture / Unknown 10/24/2023 1:58 PM CHILD CARE EDUCATION COORDINATOR 10/24/2023 1:58 PM CHILD CARE EDUCATION COORDINATOR Rom Du APRN LAB BLOOD ORDERABLES Performing Organization Address City/[facility] Co de Phone Number [facility] [address] [phone] * SEDIMENTATION RATE (ESR) (10/24/2023 1:58 PM CHILD CARE EDUCATION COORDINATOR) Pathologist [facility] Erythrocyte Sedimentation Rate 10 0 - 20 mm/hr 10/24/2023 4:16 PM CHILD CARE EDUCATION COORDINATOR [facility] Blood Venipuncture / Unknown 10/24/2023 1:58 PM CHILD CARE EDUCATION COORDINATOR 10/24/2023 1:58 PM CHILD CARE EDUCATION COORDINATOR Rom Du APRN LAB BLOOD ORDERABLES [facility] [address] [phone] * C-REACTIVE PROTEIN (CRP), QUANTITATIVE (10/24/2023 1:58 PM CHILD CARE EDUCATION COORDINATOR) Pathologist [facility] C-Reactive Protein <0.30 <=0.50 mg/dL 10/24/2023 7:13 PM CHILD CARE EDUCATION COORDINATOR [facility] Blood Venipuncture / Unknown 10/24/2023 1:58 PM CHILD CARE EDUCATION COORDINATOR 10/24/2023 1:58 PM CHILD CARE EDUCATION COORDINATOR [facility] COMMUNITY HEALTH REPRESENTATIVE LAB BLOOD ORDERABLES [facility] [address] [phone] * TSH W REFLEX TO FREE T4 (10/24/2023 1:58 PM CHILD CARE EDUCATION COORDINATOR) [facility] TSH 3.640 0.270 - 4.200 mIU/L 10/25/2023 10:27 AM CHILD CARE EDUCATION COORDINATOR [facility] Comment: TSH levels vary during , depending on a variety of factors. The [place] [employer] recommends the following treatment for hypothyroidism: In the first trimester when TSH is > 10 ??mIU/L In the absence of TPO antibodies TSH is > 4 in the presence of TPO antibodies ?? The [place] [employer] does not recommend treatment when: TSH values are below 2.5 mIU/L in the first trimester ?? Evaluation and correlation with clinical parameters for each patient is recommended to determine individual treatment selections, especially with intermediate TSH values (2.5-10 w/o TPO Ab and 2.5 - 4 w/TPO Ab) Blood Venipuncture / Unknown 10/24/2023 1:58 PM CHILD CARE EDUCATION COORDINATOR 10/24/2023 1:58 PM CHILD CARE EDUCATION COORDINATOR [facility] COMMUNITY HEALTH REPRESENTATIVE LAB BLOOD ORDERABLES [facility] [address] [facility] [address] [place], [place] [id number] [place] [address] * (ABNORMAL) COMPREHENSIVE METABOLIC PANEL (10/24/2023 1:58 PM CHILD CARE EDUCATION COORDINATOR) [facility] Patient Fasting? No 10/24/20 7:12 PM CHILD CARE EDUCATION COORDINATOR [facility] Glucose 86 74 - 109 mg/dL 10/24/2023 7:12 PM [facility] Blood Urea Nitrogen 13.0 6.0 - 20.0 mg/dL 10/24/2023 7:12 PM [facility] Creatinine 0.54 0.50 - 0.90 mg/dL 10/24/2023 7:[address] [facility] BUN/CREAT Ratio 24.0(H) 10.0 - 20.0 10/24/2023 7:12 PM [facility] Sodium 141 136 - 145 mmol/L 10/24/2023 7:12 PM [facility] Potassium 3.9 3.5 - 5.2 mmol/L 10/24/2023 7:12 PM [facility] Chloride 100 98 - 107 mmol/L 10/24/2023 7:12 PM [facility] Carbon Dioxide 28.7 22.0 - 29.0 mmol/L 10/24/2023 7:12 PM [facility] Calcium 9.7 8.6 - 10.3 mg/dL 10/24/2023 7:12 PM [facility] Total Protein 6.8 6.4 - 8.3 g/dL 10/24/2023 7:12 PM [facility] Albumin 4.2 3.5 - 5.2 g/dL 10/24/2023 7:12 PM [facility] Bilirubin, Total 0.27 0.00 - 1.20 mg/dL 10/24/2023 7:12 PM [facility] Alkaline Phosphatase 50 50 - 130 U/L 10/24/2023 7:12 PM [facility] AST 16 0 - 32 U/L 10/24/2023 7:12 PM [facility] ALT 15 0 - 33 U/L 10/24/2023 7:12 PM [facility] GFR CKD-EPI 100.04 >=60.00 mL/min/1.7 3 m?? 10/24/2023 7:12 PM [facility] Comment: Estimated GFR units: mL/min/1.73 square meters eGFR calculated by the CKD-EPI equation. Blood Venipuncture / Unknown 10/24/2023 1:58 PM CHILD CARE EDUCATION COORDINATOR 10/24/2023 1:58 PM CHILD CARE EDUCATION COORDINATOR Rom Du COMMUNITY HEALTH REPRESENTATIVE LAB BLOOD ORDERABLES Performing Organization Address City/State/[facility] Phone Number [facility] [address] [place] [address] documented in this encounter Visit Diagnoses Diagnosis General medical exam- Primary Unspecified general medical examination Body rash Frequent nosebleeds Mild anemia Anemia, unspecified Petechiae Spontaneous ecchymoses documented in this encounter Additional Health Concerns Assessment Noted Time A fall risk assessment has been complete d for the patient 04/26/2014 7:59 AM CDT documented as of this encounter Care Teams Electrician Underground Relationship Specialty Start Date End Date Qian Mathur MD [facility] [address] PCP - General Internal Medicine 08/13/23 06/06/24 documented as of this encounter
--- OUTSIDE RECORDS SUMMARY | 2024-11-07 07:00 | XMS_ITS | Encounter Summary ---
Author Organization [facility] Address [address] [place] [address] Care Team Providers Care Paramedic Instructor Name Role Phone Qian Mathur MD Primary Care Provider [phone]- [phone] Reason for Visit * Reason Onset Date Comments Triage 10/23/2023 nosebleed Encounter Details Date Type Department Care Team (Late st Contact Info) Description 10/23/2023 Nurse Triage Internal Medicine - [facility] [address] [place] [address] Sona Saenz MD [address] [place] [address] Triage (nosebleed) Social History Tobacco Use Types Packs/Day Years [...] as of this encounter Progress Notes * Silvia Guzmán RN - 10/23/2023 4:22 PM CST Patient reached through callback feature See [facility] OV 10/19/2023 Patient completed steroid dose today as prescribed She still has the rashes and forgot to mention to the [facility] doctor that she also has been having nosebleeds since Blood is not draining from her nose per patient She notices the blood when she blows her nose Patient read from [facility] that rashes and nosebleeds can indicate ITP which causes concern Denies any chest pain, SOB or dyspnea, dizziness or lightheadedness, fever or injury Triaged as below Scheduled for OV tomorrow with PCP partner Reviewed home care measures If symptoms worsen or changed, patient agreed to call us back or seek immediate medical care Future Appointments Date Time Provider Department Center 10/24/2023 1:00 PM Rom Du APRN [facility] 10/28/2023 11:15 AM Zaki Noel PA-C [facility] 11/07/2023 10:30 AM Tyree Rayo MD [facility] 01/13/2024 10:45 AM Olinda Mcmanus PA-C [facility] Reason for Disposition Patient wants to be seen Answer Assessment - Initial Assessment Questions 1. AMOUNT OF BLEEDING: How bad is the bleeding? How much blood was lost? Has the bleeding stopped? - MILD: needed a couple tissues - MODERATE: needed many tissues - SEVERE: large blood clots, soaked many tissues, lasted more than 30 minutes Mild 2. ONSET: When did the nosebleed start? Last 3. FREQUENCY: How many nosebleeds have you had in the last 24 hours? Constant nose bleed 4. RECURRENT SYMPTOMS: Have there been other recent nosebleeds? If so, ask: How long did it takeyou to stop the bleeding? What worked best? no 5. CAUSE: What do you think caused this nosebleed? Unknown 6. LOCAL FACTORS: Do you have any cold symptoms? , Have you been rubbing or picking at your nose? rashes 7. SYSTEMIC FACTORS: Do you have high blood pressure or any bleeding problems? 8. BLOOD THINNERS: Do you take any blood thinners? (e.g., coumadin, heparin, aspirin, Plavix) no 9. OTHER SYMPTOMS: Do you have any other symptoms? (e.g., lightheadedness) no 10. : Is there any chance you are ? When was your last menstrual period? N/a Protocols used: [id number]-PW E[employer] * Danni Whitt - 10/23/2023 3:36 PM CST Patient states she was seen at [facility] for a rash on her legs and torso 10/19, referred to see derm andhas appt scheduled 10/28 but states she believes it is more of a medical issue and wants to see Dr Saenz for the issue, declined an appt with Dr. Mathur for 10/24, please advise patient further. Patient was transferred to nurse triage but indicated she may not be able to hold for a very long time. Routed to triage and site [employer] documented in this encounter Plan of Treatment Upcoming Encounters Date Type Department Care Team (Late st Contact Info) Description 11/24/2024 1:00 PM PRO[employer] Procedure Surgical Procedure Visit [phone] Titus Vieyra MD [address] [place] [address] [address] [place] [address] documented as of this encounter Visit Diagnoses Not on filedocumented in this encounter Additional Health Concerns Assessment Noted Time A fall risk assessment has been complete d for the patient 04/26/2014 7:59 AM CDT documented as of this encounter Care Teams Paramedic Instructor Relationship Specialty Start Date End Date Qian Mathur MD [address] [place] [address] PCP - General Internal Medicine 08/13/23 06/06/24 documented as of this encounter
--- OUTSIDE RECORDS SUMMARY | 2024-11-07 07:00 | XMS_ITS | Encounter Summary ---
Author Organization [facility] Address [address] [place] [address] Care Team Providers Care Lpn Rn Hospice Name Role Phone Qian Mathur MD Primary Care Provider [phone]- [phone] Reason for Visit * Reason Onset Date Comments Appt Request 09/19/2023 Encounter Details Date Type Department Care Team (Late st Contact Info) Description 09/19/2023 Telephone Dermatology - [facility] [address] [place], [place] [id number] Tyree Rayo MD [address] [facility] [place], [place] [id number] Appt Request Social History Tobacco Use Types Packs/Day Years [...] as of this encounter Progress Notes * Hamida Copeland - 09/25/2023 11:36 AM CST Pt scheduled 11/07 dr. Locke 20 min ex HAND * Dorota Wetzel - 09/25/2023 10:59 AM CST Patient calling back to schedule cyst excision with Dr. Rayo. Please call: [phone] Thank you HAND * Taylor Ochoa - 09/23/2023 10:48 AM CST 3 rd attempt. HAND * Taylor Ochoa - 09/22/2023 9:42 AM CST LMOM for PT to CB. HAND * Hamida Copeland - 09/19/2023 11:33 AM CST Lmom to c.b. Per not from b.p schedule pt 20 min cyst proc . HAND * Mounika Ayon - 09/19/2023 10:35 AM CST The patient would like to schedule a procedure with Dr Rayo. Her preferred procedure date is . I called the office but I could not get through. Please call the patient back as soon as possible. Thank you. HAND documented in this encounter Plan of Treatment Upcoming Encounters Date Type Department Care Team (Late st Contact Info) Description 11/24/2024 1:00 PM SHOP HAND Procedure Surgical Procedure Visit [phone] Titus Vieyra MD [address] [place] [address] [address] [place] [address] documented as of this encounter Visit Diagnoses Not on filedocumented in this encounter Additional Health Concerns Assessment Noted Time A fall risk assessment has been complete d for the patient 04/26/2014 7:59 AM CDT documented as of this encounter Care Teams Lpn Rn Hospice Relationship Specialty Start Date End Date Qian Mathur MD [address] [facility] [address] [place] [address] PCP - General Internal Medicine 08/13/23 06/06/24 documented as of this encounter
--- OUTSIDE RECORDS SUMMARY | 2024-11-07 07:00 | XMS_ITS | Encounter Summary ---
Author Organization [facility] Address [address] [place] [address] Care Team Providers Care Manager Nuclear Name Role Phone Jeison Orozco MD Primary Care Provider Unav ailable Reason for Visit * Reason Comments Sore Throat Encounter Details Date Type Department Care Team (Late st Contact Info) Description 04/09/2022 10:20 AM CDT Office Visit [facility] Clem Neumann [address] [place] [address] Leandra Perez PA-C [address] [facility] [address] [place], [place] [id number] Sore throat (Primary Dx) Social History Tobacco Use Types [...] Sign Reading Time Taken Comments Blood Pressure 138/83 04/09/2022 10:08 AM CDT Pulse 73 04/09/2022 10:08 AM CDT Temperature 36.8 ??C (98.2 ??F) 04/09/2022 10:08 AM C DT Respiratory Rate 20 04/09/2022 10:08 AM CDT Oxygen Saturation 97% 04/09/2022 10:08 AM CDT Inhaled Oxygen Concentration - - [...] this encounter Patient Instructions * Patient Instructions* Leandra Perez PA-C - 04/09/2022 10:20 AM CDT You were diagnosed with Sore throat (primary encounter diagnosis) Diagnosis made at the [facility] are typically made on a provisional basis. URI is caused by a variety of respiratory viruses. Typical course of illness is 3 to 7 days. Symptoms consistent with an URI include: sore throat, white, yellow or clear nasal congestion or drainage,fever early in the course (especially in young children), and mild cough (especially late in the course), and mild to moderate headache. Treatment: Symptomatic (especially helpful taken prior to bed time) 650 mg acetaminophen (Tylenol) for discomfort or high fevers every 6 hours as needed. 400 mg Ibuprofen (Motrin/Advil) for discomfort or high fevers every 6 hours as needed. Mucinex 600mg 1-2 times daily for congestion/cough Medications Prescribed: Requested Prescriptions No prescriptions requested or ordered in this encounter Push fluids, rest If you are not eating well, choose fluids with sugar & electrolytes, such as; water-down juices, gatorade, pedialyte, body armour, etc. Follow up with the your PCP in 5-7 days for a re-evaluation of your condition if not improving as expected, and a final diagnosis. If your condition worsens or does not improve as expected, call the [facility] at [phone] ([phone]). If you are experiencing a condition that is life-threatening, please call 911. DO NOT FLUSH unused medications down a toilet or any waste water stream. For information on proper and safe disposal of medications you are no longer taking, contact your local police station for the nearest medication disposal drop off site, or visit www.epa.[place].gov , & click on MEDICATION DISPOSAL documented in this encounter Progress Notes * Leandra Perez PA-C - 04/09/2022 10:20 AM CDT Subjective: Patient ID: Tonya Costello is a 61 year old female. HPI patient here with sore throat. Patient ports he tested positive for COVID on 26 March. She took packs of it and completed on 31 March. She reports she was feeling better but had some mild symptoms. She felt like she became acutely ill again yesterday with sore throat and right ear pain. No significant head or body pain. She does still feel tired. Patient notes low-grade fevers. No significant cough or chest congestion. No vomiting or diarrhea. No known no sick contact. History/Other: Review of Systems Current Outpatient Medications Medication Sig Dispense Refill ??? zolpidem 5 MG Oral Tab Take [...] mouth. ??? TURMERIC OR Take by mouth. Allergies: Penicillins RASH Objective: Physical Exam Vitals and nursing note reviewed. Constitutional: Appearance: Normal appearance. She is well-developed. HENT: Head: Normocephalic and atraumatic. Right Ear: Tympanic membrane normal. Left Ear: Tympanic membrane normal. Mouth/Throat: Mouth: Mucous membranes are moist. Pharynx: Posterior oropharyngeal erythema present. Eyes: Conjunctiva/sclera: Conjunctivae normal. Cardiovascular: Rate and Rhythm: Normal rate and regular rhythm. Heart sounds: Normal heart sounds. Pulmonary: Effort: Pulmonary effort is normal. No respiratory distress. Breath sounds: Normal breath sounds. No wheezing or rales. Musculoskeletal: General: No tenderness. Normal range of motion. Cervical back: Normal range of motion and neck supple. Lymphadenopathy: Cervical: No cervical adenopathy. Skin: General: Skin is warm and dry. Neurological: General: No focal deficit present. Mental Status: She is alert and oriented to person, place, and time. Psychiatric: Mood and Affect: Mood normal. Behavior: Behavior normal. BP 138/83 Pulse 73 Temp 98.2 ??F (36.8 ??C) (Oral) Resp 20 SpO2 97% Assessment & Plan: Sore throat (primary encounter diagnosis) Orders Placed This Encounter Streptococcus Group A by PCR Meds This Visit: Requested Prescriptions No prescriptions requested or ordered in this encounter Imaging & Referrals: None 1) sore throat Strep swab was performed, patient signs of functioning treat with antibiotics. If negative this likely represents viral process. We did discuss possibility of rebound after treatment with Paxlovid. Patient did do a home antigen test this morning which was negative. She was hoping to travel to [place] to see her father tomorrow. If her strep swab was negative, would encourage her to repeat the antigen test prior to leaving. Supportive care instructions were reviewed. Patient is and she will need evaluation and worsen symptoms. documented in this encounter Plan of Treatment Upcoming Encounters Date Type Department Care Team (Late st Contact Info) Description 11/24/2024 1:00 PM INFORMATION TECHNOLOGY CONSULTANT Procedure Surgical Procedure Visit [phone] Titus Vieyra MD [address] [place] [address] [address] [place] [address] documented as of this encounter Results * STREPTOCOCCUS GROUP A BY PCR (04/09/2022 10:21 AM CDT) Streptococcus Group A by PCR NOT DETECTED Not Detected 04/09/2022 11:06 AM CDT [facility] Other SPECIMEN FROM THROAT / Unknown 04/09/2022 10:21 AM CDT 04/09/2022 10:21 AM CDT Leandra Perez PA-C MICROBIOLOGY [facility] [address] [facility] [address] [phone] documented in this encounter Visit Diagnoses Diagnosis Sore throat- Primary Acute pharyngitis documented in this encounter Additional Health Concerns Assessment Noted Time A fall risk assessment has been complete d for the patient 04/26/2014 7:59 AM CDT documented as of this encounter Care Teams Manager Nuclear Relationship Specialty Start Date End Date Jeison Orozco MD PCP - General 12/25/01 08/12/23 documented as of this encounter
--- OUTSIDE RECORDS SUMMARY | 2024-11-07 07:00 | XMS_ITS | Encounter Summary ---
Author Organization [facility] Address [address] [place] [address] Care Team Providers Care Residential Housekeeper Name Role Phone Jeison Orozco MD Primary Care Provider Unav ailable Reason for Visit * Reason Comments Establish Care LUCILLE 01/13/23 Plantar fasciitis, right, Hav left. Pt presents for left heel pain. Denies injury. Pain has increased about 2 months ago and now causing limping when walking. Encounter Details Date Type Department Care Team (Late st Contact Info) Description 04/15/2023 10:50 AM CDT Office Visit Podiatry - [facility] [address] [address] [place] [address] Margarita Cotter, DP [address] [facility] [facility] [address] [place] [address] Left foot pain (Primary Dx); Plantar fasciitis, left Social History Tobacco Use Types Packs/Day [...] Progress Notes * Margarita Cotter, DPM - 04/15/2023 10:50 AM CDT Tonya Costello is a 62 year old female. Patient presents with: Establish Care: LUCILLE 01/13/23 Plantar fasciitis, right, Hav left. Pt presents for left heel pain. Denies injury. Pain has increased about 2 months ago and now causing limping when walking. Allergies: Penicillins RASH Current Meds: Current Outpatient [...] mouth. Patient presents with: Establish Care: LUCILLE 01/13/23 Plantar fasciitis, right, Hav left. Pt presents for left heel pain. Denies injury. Pain has increased about 2 months ago and now causing limping when walking. Tonya Costello is a 62 year old female who presents to the office today complaining of heel pain,left, x 2 months. The pain is worse when first getting up after periods of rest, and then improves with further steps. Patient states pain started when she was on vacation doing a very high amount ofwalking and wearing a new type of hiking [...] plantar medial calcaneal tuberosity, left heel, less paindistally along the course of the plantar fascia and plantar central calcaneal tuberosity. No pain with [id number] compression of the calcaneus, no evidence of tarsal tunnel syndrome on examination. X-rays are obtained left foot: Negative for acute osseous pathology. Plantar and posterior calcaneal spurring is noted on lateral view. IMPRESSION: Plantar fasciitis, left. PLAN: Examined patient, discussed treatment. Obtained x-rays today. I independently reviewed them and discussed findings with patient. First injection is provided into the left heel consisting of a total of 2.25 mL of 0.5% Marcaine plain mixed with 1 mL of Celestone Soluspan after ETOH prep. Band-aid was then applied. Patient is advised to ice and stretch t.i.d. and was given written instructions regarding this. Recommended patient modify shoe gear and avoid barefoot walking, begin wearing temporary inserts that were recommendedtoday, and followup in 3 weeks. If pain continues, consider 2nd injection or custom-molded orthotics. 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 Procedure Surgical Procedure Visit [phone] Titus Vieyra MD [address] [place] [address] [address] [place] [address] Scheduled Orders Name Type Priority Associated Diagnoses Orde r Schedule INJ TENDON/LIGAMENT/CYST PROCEDURES Routine Plantar fasciitis, left Ordered: 04/19/2023 OFFICE/OUTPT VISIT,EST,LEVL III PROCEDURES Routine Plantar fasciitis, left Ordered: 04/19/2023 documented as of this encounter Results * XR FOOT, COMPLETE (MIN 3 VIEWS), LEFT ([id number]) (04/15/2023 11:30 AM CDT) Anatomical Region Laterality Modality Foot Left Computed Radiogr aphy 04/15/2023 3:13 PM CDT Impressions 04/15/2023 3:14 PM CDT IMPRESSION: Calcaneal spurs. Degenerative changes. Narrative 04/15/2023 3:14 PM CDT DATE OF SERVICE: 04.15.2023 XR FOOT, COMPLETE (MIN 3 VIEWS), LEFT ([id number]) CLINICAL INDICATION: Left foot pain. 3 views [...] XR FOOT, COMPLETE (MIN 3 VIEWS), LEFT ([id number]) CLINICAL INDICATION: Left foot pain. 3 views [...] this encounter Visit Diagnoses Diagnosis Left foot pain- Primary Pain in limb Plantar fasciitis, left Plantar fascial fibromatosis Left foot pain Pain in limb documented in this encounter Additional Health Concerns Assessment Noted Time A fall risk assessment has been complete d for the patient 04/26/2014 7:59 AM CDT documented as of this encounter Care Teams Residential Housekeeper Relationship Specialty Start Date End Date Jeison Orozco MD PCP - General 12/25/01 08/12/23 documented as of this encounter
--- OUTSIDE RECORDS SUMMARY | 2024-11-07 07:00 | XMS_ITS | Encounter Summary ---
Author Organization [facility] Address [address] [place] [address] Care Team Providers Care Foreign Exchange Services Manager Name Role Phone Jeison Orozco MD Primary Care Provider Unav ailable Reason for Visit * Reason Onset Date Comments Medical Question 04/09/2022 Encounter Details Date Type Department Care Team (Late st Contact Info) Description 04/09/2022 Telephone Shared Services Call Center [address] [place] [address] Jeison Orozco MD Medical Question Social History Tobacco Use Types [...] as of this encounter Progress Notes * Cecilia Pina RN - 04/09/2022 8:13 AM CDT Patient called in. HIPAA verified. Patient is asking if she can go to the lab and do the strep test Informed her we need to assess her first and let her MD know about it to order the lab She mentioned she will just go to [facility] Advised her to call us back for worsening symptoms and if she needs medication Patient verbalized understanding No further action needed Closing the Encounter documented in this encounter Plan of Treatment Upcoming Encounters Date Type Department Care Team (Late st Contact Info) Description 11/24/2024 1:00 PM PODIATRIC PHYSICIAN Procedure Surgical Procedure Visit [phone] Titus Vieyra MD [address] [place] [address] [address] [place] [address] documented as of this encounter Visit Diagnoses Not on filedocumented in this encounter Additional Health Concerns Assessment Noted Time A fall risk assessment has been complete d for the patient 04/26/2014 7:59 AM CDT documented as of this encounter Care Teams Foreign Exchange Services Manager Relationship Specialty Start Date End Date Jeison Orozco MD PCP - General 12/25/01 08/12/23 documented as of this encounter
--- OUTSIDE RECORDS SUMMARY | 2024-11-07 07:00 | XMS_ITS | Encounter Summary ---
Author Organization [facility] Address [address] [place] [address] Care Team Providers Care Secretary Name Role Phone Jeison Orozco MD Primary Care Provider Unav ailable Reason for Visit * Reason Comments Consult New Sleep direct ref erral SS 12/2021 neck size 13.5 Encounter Details Date Type Department Care Team (Late st Contact Info) Description 02/07/2022 9:00 AM CDT Office Visit Pulmonary - [address] [address] [place], [place] [phone] Gunner Miramontes MD [address] [place], [place] [phone] STAR (obstructive sleep apnea) (Primary Dx) Social History Tobacco Use Types [...] suspected to have Coronavirus/COVID-19? No / Unsure 02/05/2022 8:28 AM CDT documented as of this encounter Last Filed Vital Signs Vital Sign Reading Time Taken Comments Blood Pressure - - Pulse 64 02/07/2022 9:08 AM CDT Temperature - - Respiratory Rate 16 02/07/2022 9:08 AM CDT Oxygen Saturation 95% 02/07/2022 9:08 AM CDT Inhaled Oxygen Concentration - - Weight 68 kg (150 lb) 02/07/2022 9:08 AM CDT Height 167.6 cm (5' 6 ) 02/07/2022 9:08 AM CDT Body Mass Index 24.21 02/07/2022 9:08 AM CDT documented in this encounter Functional Status Functional Status Response Date of Assess ment Hearing Problems? No 12/17/2021 Vision Problems? No 12/17/2021 Difficulty walking? No 12/17/2021 Difficulty dressing or bathing? No 12/17/2021 Problems with daily activities? No 12/17/2021 Cognitive Status Response Date of Assessm ent Memory Problems? No 12/17/2021 documented as of this encounter Progress Notes * Gunner Miramontes MD - 02/07/2022 9:00 AM CDT Images from the original note were not included. Dr. Dyson, I had the pleasure of seeing your patient, Tonya Costello, in clinic today. Thank you very much forthe referral. Please see the details of my consultation below. Gunner Miramontes MD Pulmonary and Critical Care Medicine Pulmonary Consult Name: Tonya Costello - Age: [age] year old - : 1960 - Sex: female Reason for Consult: STAR Assessment and Plan 1. STAR: mild. History of atrial fibrillation and nocturia. Discussed positional therapy vs CPAP vs oral appliance - she would like to pursue an oral appliance - avoid alcohol, sedatives and caffeine at bedtime - absolutely no driving or operating heavy machinery if drowsy Follow-up as needed. History of Present Illness Ms. Costello is a 61 year old with history of atrial fibrillation here for evaluation of STAR. Noted to snore Has issues with nocturia Does not feel tired during the day No other complaints PSG was obtained and noted to have mild STAR 12 point ROS negative except per HPI. Past Medical History: Diagnosis Date ??? AF (atrial fibrillation) ([facility]) 06/21/2013 ??? Arrhythmia PAF, ablation 03/2014 ??? STAR (obstructive sleep apnea) 01/15/22-PSG AHI-14 ??? Tinnitus x years (had seen ENT) Past Surgical History: Procedure Laterality Date ??? [...] polyp at tattoo site at 40 cm Allergies: Penicillins RASH Current Outpatient Medications Medication Sig Dispense Refill [...] mouth. ??? TURMERIC OR Take by mouth. 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 General: no apparent distress, conversant Heart: regular rate and rhythm, no murmurs / rubs / gallops Lungs: clear bilaterally Extremities: no edema or cyanosis Additional Data I independently visualized all relevant chest imaging in PACS and agree with radiology interpretation except where noted. documented in this encounter Plan of Treatment Upcoming Encounters Date Type Department Care Team (Late st Contact Info) Description 11/24/2024 1:00 PM CONSULTANT RN Procedure Surgical Procedure Visit [phone] Titus Vieyra MD [address] [place] [address] [address] [place] [address] Scheduled Orders Name Type Priority Associated Diagnoses Orde r Schedule OFFICE CONSULTATION,LEVEL IV PROCEDURES Routine STAR (obstructive sleep apnea) Ordered: 02/07/2022 documented as of this encounter Visit Diagnoses Diagnosis STAR (obstructive sleep apnea)- Primary Obstructive sleep apnea (adult) (pediatric) documented in this encounter Additional Health Concerns Assessment Noted Time A fall risk assessment has been complete d for the patient 04/26/2014 7:59 AM CDT documented as of this encounter Care Teams Secretary Relationship Specialty Start Date End Date Jeison Orozco MD PCP - General 12/25/01 08/12/23 documented as of this encounter
--- OUTSIDE RECORDS SUMMARY | 2024-11-07 07:00 | XMS_ITS | Encounter Summary ---
Author Organization [facility] Address [address] [place] [address] Care Team Providers Care Supervisor Trust Accounts Name Role Phone Jeison Orozco MD Primary Care Provider Unav ailable Reason for Visit * CT (Routine) - Closed Specialty Diagnoses / Procedures Referred By Delmi zee Referred To Contact Radiology Diagnoses Dysuria Flank pain Procedures CT ABDOMEN+PELVIS([id number]) CT ANGIO ABD & PELVIS Qian Mathur MD [address] [facility] [address] [place] [address] Referral ID Status Reason Start Date Expiration Date Visits Re quested Visits Authorized [id number] Closed 08/06/2023 08/03/2024 1 1 Encounter Details Date Type Department Care Team (Late st Contact Info) Description 08/08/2023 8:20 AM CDT Ancillary Procedure Radiology - [place] Clem Neumann [address] [place] [address] [place] [phone] Dysuria; Flank pain Social History Tobacco Use Types Packs/Day [...] Progress Notes * Qian Mathur MD - 08/08/2023 8:20 AM CDT See MyChart comments documented in this encounter Plan of Treatment Upcoming Encounters Date Type Department Care Team (Late st Contact Info) Description 11/24/2024 1:00 PM SAMPLE EXAMINER Procedure Surgical Procedure Visit [phone] Titus Vieyra MD [address] [place] [address] [address] [place] [address] documented as of this encounter Procedures Procedure Name Priority Date/Time Associated Diagnosis Comments CT ABDOMEN+PELVIS(CPT= [id number]) Routine 08/08/2023 9:09 AM CDT Dysuria Flank pain documented in this encounter Results * CT ABDOMEN+PELVIS([id number]=[id number]) (08/08/2023 9:09 AM CDT) Anatomical Region Laterality Modality Abdomen, Pelvis Computed Tomogra phy 08/08/2023 3:35 PM CDT Impressions 08/08/2023 3:41 PM CDT Impression: 1. ??No evidence for urolithiasis or obstructive uropathy. 2. ??Multiple hepatic cysts. 3. ??Mild diverticulosis coli. Narrative 08/08/2023 3:41 PM CDT DATE OF SERVICE: 08.08.2023 CT ABDOMEN+PELVIS(ZZZ=[id number]) Clinical Indication: ??DYSURIA, FLANK PAIN Comparison: ??None. [...] - 08/08/2023 DATE OF SERVICE: 08.08.2023 CT ABDOMEN+PELVIS([id number]=[id number]) Clinical Indication: DYSURIA, FLANK PAIN Comparison: None. [...] diverticulosis coli. Qian Mathur MD RIS CT documented in this encounter Visit Diagnoses Diagnosis Dysuria Flank pain Abdominal pain, unspecified site documented in this encounter Additional Health Concerns Assessment Noted Time A fall risk assessment has been complete d for the patient 04/26/2014 7:59 AM CDT documented as of this encounter Care Teams Supervisor Trust Accounts Relationship Specialty Start Date End Date Jeison Orozco MD PCP - General 12/25/01 08/12/23 documented as of this encounter
--- OUTSIDE RECORDS SUMMARY | 2024-11-07 07:00 | XMS_ITS | Encounter Summary ---
Author Organization [facility] Address [address] [place] [address] Care Team Providers Care Hospice Patient Care Secretary Name Role Phone Sona Saenz MD Primary Care Provider [phone] Encounter Details Date Type Department Care Team (Late st Contact Info) Description 04/09/2022 [facility] [address] [place], [place] [phone] Leandra Perez PA-C [address] [facility] [address] [place], [place] [address] Sore throat Social History Tobacco Use Types Packs/Day Years [...] st Contact Info) Description 11/24/2024 1:00 PM BICYCLE REPAIR TECHNICIAN Procedure Surgical Procedure Visit [phone] Titus Vieyra MD [address] [facility] [address] [place] [address] documented as of this encounter Procedures Procedure Name Priority Date/Time Associated Diagnosis Comments STREP GROUP A PCR STAT Routine 04/09/2022 10:21 AM CDT Sore throat documented in this encounter Results * STREPTOCOCCUS GROUP A BY PCR (04/09/2022 10:21 AM CDT) Streptococcus Group A by PCR NOT DETECTED Not Detected 04/09/2022 11:06 AM CDT [facility] Other SPECIMEN FROM THROAT / Unknown 04/09/2022 10:21 AM CDT 04/09/2022 10:21 AM CDT Leandra Perez PA-C MICROBIOLOGY [facility] [address] [phone] documented in this encounter Visit Diagnoses Diagnosis Sore throat Acute pharyngitis documented in this encounter Additional Health Concerns Assessment Noted Time A fall risk assessment has been complete d for the patient 04/26/2014 7:59 AM CDT documented as of this encounter Care Teams Hospice Patient Care Secretary Relationship Specialty Start Date End Date Sona Saenz MD [address] [facility] [address] [place] [address] PCP - General Internal Medicine 06/07/24 documented as of this encounter
--- OUTSIDE RECORDS SUMMARY | 2024-11-07 07:00 | XMS_ITS | Encounter Summary ---
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
--- OUTSIDE RECORDS SUMMARY | 2024-11-07 07:00 | XMS_ITS | Encounter Summary ---
Author Organization [facility] Address [address] [place] [address] Care Team Providers Care Mink Slicer Name Role Phone Jeison Orozco MD Primary Care Provider Unav ailable Reason for Visit * Reason Comments Follow - Up [facility] 05/29/23 Plantar f asciitis, left, Pes Cavus, Heel spur left, Left heel pain. Pt presents to discuss MRI results. Encounter Details Date Type Department Care Team (Late st Contact Info) Description 07/02/2023 10:00 AM CDT Office Visit Podiatry - [facility] [address] [place] [address] Margarita Cotter, DPM [address] [place] [address] Plantar fasciitis, left (Primary Dx); Left foot pain; Nontraumatic tear of plantar fascia Social History Tobacco Use Types Packs/Day Years [...] Progress Notes * Margarita Cotter, DPM - 07/02/2023 10:00 AM CDT Tonya Costello is a 62 year old female. Patient presents with: Follow - Up: [facility] 05/29/23 Plantar fasciitis, left, Pes Cavus, Heel spur left, Left heel pain. Pt presents to discuss MRI results. Allergies: Penicillins RASH Current Meds: Current Outpatient [...] OR Take by mouth. Patient presents with: Follow - Up: [facility] 05/29/23 Plantar fasciitis, left, Pes Cavus, Heel spur left, Left heel pain. Pt presents to discuss MRI results. Pt presents in f/u of heel pain, left. Here to review MRI. Patient reports no improvement in her heel pain. Since last visit she has traveled to [facility]. Reports that she did a 2-1/2-hour hike which aggravated her heel pain. After second injection she [...] plantar central calcaneal tuberosity. No pain with [id number] compression of the calcaneus, no evidence of tarsal tunnel syndrome on examination. Increased medial arch height bilaterally. X-rays left foot: Negative for acute osseous pathology. Plantar and posterior calcaneal spurring isnoted on lateral view. DATE OF SERVICE: 06.11.2023 MRI ANKLE/HINDFOOT, LEFT ([id number]) 06/11/2023 8:00 AM CLINICAL INDICATION: Pain of [...] intensity on both T1 and T2-weighted images. JOINT SPACES: The [...] standard T1-weighted images without gross focal abnormalities. Impression IMPRESSION: 1. Subtle partial-thickness tearing along the insertion of the medial band of the plantar fascia with additional inflammatory changes seen throughout both the medial and lateral insertional plantar fascial bands with reactive soft tissue swelling and reactive osteitis. No gross avulsion fracture with complete fascial tear is identified. ASSESSMENT/ PLAN: Partial thickness tearing plantar fascia left foot Plantar fasciitis left Pes Cavus Heel spur left PLAN: Examined patient Reviewed MRI. Discussed MRI findings with patient. Discussed treatment recommendations. We will start with immobilization in cam boot which is applied today. She is advised on consistent use. She is traveling to [place] tomorrow and before long will be traveling to [place]. Discussed risk for DVT when immobilized in cam boot as well as risk for DVT with long car rides. She is advised on ankle range of motion exercises, remove boot 3 times daily to do these to help lowerrisk. She will also not wear the boot on days of her long car rides. Patient already has custom orthotics. Patient is going to be going to [place] where she will need to walk around a lot in about 9 weeks. Previously dispensed Rx naproxen, advised on use. Discussed risks associated with NSAIDs and thus she is only given a 30-day supply. Patient reports she may not take it as her sister is a pharmacist and has advised her not to take NSAIDs. Follow-up in 3 to 4 weeks. ID#[id number] documented in this encounter Plan of Treatment Upcoming Encounters Date Type Department Care Team (Late st Contact Info) Description 11/24/2024 1:00 PM QUARRY SUPERVISOR OPEN PIT Procedure Surgical Procedure Visit [phone] Titus Vieyra MD [address] [place] [address] [address] [place] [address] Scheduled Orders Name Type Priority Associated Diagnoses Orde r Schedule PNEUMA/VAC WALK BOOT PRE OTS PROCEDURES Routine Plantar fasciitis, left Left foot pain Ordered: 07/02/2023 OFFICE/OUTPT VISIT,EST,LEVL III PROCEDURES Routine Plantar fasciitis, left Left foot pain Nontraumatic tear of plantar fascia Ordered: 07/02/2023 documented as of this encounter Visit Diagnoses Diagnosis Plantar fasciitis, left- Primary Plantar fascial fibromatosis Left foot pain Pain in limb Nontraumatic tear of plantar fascia Unspecified disorder of muscle, ligament, and fascia documented in this encounter Additional Health Concerns Assessment Noted Time A fall risk assessment has been complete d for the patient 04/26/2014 7:59 AM CDT documented as of this encounter Care Teams Mink Slicer Relationship Specialty Start Date End Date Jeison Orozco MD PCP - General 12/25/01 08/12/23 documented as of this encounter
--- OUTSIDE RECORDS SUMMARY | 2024-11-07 07:00 | XMS_ITS | Encounter Summary ---
Author Organization [facility] Address [address] [place] [address] Care Team Providers Care Supervisor Compressed Yeast Name Role Phone Jeison Orozco MD Primary Care Provider Unav ailable Reason for Visit * Tests (Routine) - Closed Specialty Diagnoses / Procedures Referred By Delmi zee Referred To Contact Cardiology Diagnoses Paroxysmal atrial fibrillation (HCC) Palpitations Procedures CARD ECHO 2D DOPPLER ([id number]) TTE W/DOPPLER, COMPLETE Jl Robles MD [address] [place] [address] [facility] [address] [place] [address] Referral ID Status Reason Start Date Expiration Date Visits Re quested Visits Authorized [id number] Closed 03/04/2022 02/04/2023 1 1 Encounter Details Date Type Department Care Team (Latest Contact Info) Description 03/04/2022 2:30 PM CDT Ancillary Procedure Cardiology - [address], [place] [address] [place], [place] [id number] Paroxysmal atrial fibrillation (HCC); Palpitations Social History Tobacco Use Types Packs/Day Years [...] st Contact Info) Description 11/24/2024 1:00 PM RUG DRY ROOM ATTENDANT Procedure Surgical Procedure Visit [phone] Titus Vieyra MD [address] [place] [address] [address] [place] [address] documented as of this encounter Procedures Procedure Name Priority Date/Time Associated Diagnosis Comments CARD ECHO 2D DOPPLER ([id number]) Routine 03/04/2022 3:30 PM CDT Paroxysmal atrial fibrillation (HCC) Palpitations documented in this encounter Results * CARD ECHO 2D DOPPLER ([id number]) (03/04/2022 3:30 PM CDT) 03/04/2022 1:30 PM CDT Narrative [facility] - 03/05/2022 4:20 PM CDT Transthoracic Echocardiogram 2D Echo with Doppler Patient: ?Tonya Costello ?Study Date: ? 03/04/2022 ? BSA: ?1.77m^2 : ?1960 (61yrs) ? Height: ? (66in) Gender: ? F ?Weight: ? (149.7lb) Ordered by: ? Jl Robles MD Manager Public: Rocio Santiago RDCS Indication: ?? Atrial fibrillation. Blood pressure: 110 / 62 Procedure: ??Transthoracic echocardiography: M-mode,complete 2D, complete spectral and color Doppler was performed. Image quality was adequate. Measurements Left ventricle ?Value ?Reference LV ID, ED, PLAX ? 4.3 ?? cm ? 3.9 - 5.3 LV ID, ES, PLAX ? 2.9 ?? cm ? --------- LV fx shortening, PLAX ?32 ?% ?27 - 45 LV mid-wall fx shortening, PLAX ? (L) ? 14 ?% ?15 - 23 LV PW thickness, ED, PLAX ? (H) ? 1 ? cm ? 0.6 - 0.9 IVS/LV PW ratio, ED, PLAX ? 1.07 ? --------- LV PW thickness, ED ? (H) ? 1 ? cm ? 0.6 - 0.9 LV e', lateral ?0.09 ??m/sec ??--------- LV e', medial ? 0.08 ??m/sec ??--------- LV E/e', medial ? 11 ? --------- LV e', average ?0.085 m/sec ??--------- LV E/e', average ?10 ? --------- Ventricular septum ?Value ?Reference IVS thickness, ED, PLAX ? (H) ? 1.07 ??cm ? 0.6 - 0.9 IVS thickness, ED ? (H) ? 1.07 ??cm ? 0.6 - 0.9 Aorta ? Value ?Reference Aortic root ID, ED ?3.4 ?? cm ? <4.0 Ascending aorta ID, A-P, ED ? 2.9 ?? cm ? --------- Left atrium ? Value ?Reference LA ID, A-P, ES ?3.7 ?? cm ? 2.7 - 3.8 LA ID/bsa, A-P ?2.1 ?? cm/m^2 1.5 - 2.3 LA volume, S ?44 ?ml ? - 52 LA volume, ES, 1-p A4C ?41 ?ml ? - LA volume, ES, 1-p A2C ?42 ?ml ? Mitral valve ?Value ?Reference Mitral E-wave peak velocity ? 0.88 ??m/sec ??--------- Mitral A-wave peak velocity ? 0.73 ??m/sec ??--------- Mitral deceleration time ?166 ?? ms ? --------- Mitral pressure half-time ? 49 ?ms ? --------- Mitral peak gradient, D ? 3 ? mm Hg ??--------- Mitral E/A ratio, peak ?1.2 ?--------- Mitral valve area, PHT, DP ?4.5 ?? cm^2 ?? --------- Pulmonary arteries ?Value ?Reference PA pressure, S, DP ?26 ?mm Hg ??--------- Tricuspid valve ? Value ?Reference Tricuspid regurg peak velocity ?2.4 ?? m/sec ??--------- Tricuspid peak RV-RA gradient ? 23 ?mm Hg ??--------- Tricuspid maximal regurg velocity, PISA ? 2.38 ??m/sec ??--------- Systemic veins ?Value ?Reference Estimated CVP ? 3 ? mm Hg ??--------- Right ventricle ? Value ?Reference RV pressure, S, DP ?26 ?mm Hg ??--------- Legend: (L) ??and ??(H) ??stewart values outside specified reference range. Findings Left ventricle: ??The cavity size is normal. Wall thickness is normal. Systolic function is normal. The estimated ejection fraction is 60-65%. Wall motion is normal; there are no regional wall motion abnormalities. Left ventricular diastolic function parameters are normal. Right ventricle: ??The cavity size is normal. Wall thickness is normal. Systolic function is normal. Estimation of the right ventricular systolic pressure is within the normal range. Left atrium: ??The atrium is normal in size. Right atrium: ??The atrium is normal in size. Aortic valve: ?? Structurally normal valve. Trileaflet. ??Doppler: Transvalvular velocity is within the normal range. There is no stenosis. There is no regurgitation. Mitral valve: ?? Structurally normal valve. ?Doppler: ??Transvalvular velocity is within the normal range. There is no evidence for stenosis. There is trace regurgitation. Tricuspid valve: ?? Structurally normal valve. ?Doppler: ?? There is no evidence for stenosis. ?? There is trace regurgitation. Pulmonic valve: ?? Not well visualized. ??No significant valve disease. Doppler: ??There is trace regurgitation. Pericardium: ??There is no significant pericardial effusion. Aorta: ??Aortic root: The aortic root is not dilated. Systemic veins: Inferior vena cava: The vessel is normal in size. The respirophasic diameter changes are in the normal range (greater than or equal to 50%). Study data: ?? Location: ??[address] [place] [address]. Conclusions Summary: 1. Left ventricle: The cavity size is normal. Wall thickness is normal. ?? Systolic function is normal. The estimated ejection fraction is 60-65%. ?? Wall motion is normal; there are no regional wall motion abnormalities. ?? Left ventricular diastolic function parameters are normal. 2. Right ventricle: Estimation of the right ventricular systolic pressure is ?? within the normal range. 3. Pericardium, extracardiac: There is no significant pericardial effusion. Impressions: ??No previous study was available for comparison. Prepared and signed by Jl Robles MD 03/05/2022 16:20 Procedure Note Jl Robles MD - 03/05/2022 Transthoracic Echocardiogram 2D Echo with Doppler Patient: Tonya Costello Study Date:03/04/2022 BSA: 1.77m^2 : 1960 (61yrs) Height: (66in) Gender: F Weight:(149.7lb) Ordered by: Jl Robles MD Manager Public: Rocio Santiago RDCS Indication: Atrial fibrillation. Blood pressure: 110 / 62 Procedure: Transthoracic echocardiography: M-mode,complete 2D, complete spectral and color Doppler was performed. Image quality was adequate. Measurements Left ventricle Value Reference LV ID, ED, PLAX 4.3 cm 3.9 - 5.3 LV ID, ES, PLAX 2.9 cm --------- LV fx shortening, PLAX 32 % 27 - 45 LV mid-wall fx shortening, PLAX (L) 14 % 15 - 23 LV PW thickness, ED, PLAX (H) 1 cm 0.6 - 0.9 IVS/LV PW ratio, ED, PLAX 1.07 --------- LV PW thickness, ED (H) 1 cm 0.6 - 0.9 LV e', lateral 0.09 m/sec --------- LV e', medial 0.08 m/sec --------- LV E/e', medial 11 --------- LV e', average 0.085 m/sec --------- LV E/e', average 10 --------- Ventricular septum Value Reference IVS thickness, ED, PLAX (H) 1.07 cm 0.6 - 0.9 IVS thickness, ED (H) 1.07 cm 0.6 - 0.9 Aorta Value Reference Aortic root ID, ED 3.4 cm <4.0 Ascending aorta ID, A-P, ED 2.9 cm --------- Left atrium Value Reference LA ID, A-P, ES 3.7 cm 2.7 - 3.8 LA ID/bsa, A-P 2.1 cm/m^2 1.5 - 2.3 LA volume, S 44 ml 22 - 52 LA volume, ES, 1-p A4C 41 ml - 52 LA volume, ES, 1-p A2C 42 ml 22 - 52 Mitral valve Value Reference Mitral E-wave peak velocity 0.88 m/sec --------- Mitral A-wave peak velocity 0.73 m/sec --------- Mitral deceleration time 166 ms --------- Mitral pressure half-time 49 ms --------- Mitral peak gradient, D 3 mm Hg --------- Mitral E/A ratio, peak 1.2 --------- Mitral valve area, PHT, DP 4.5 cm^2 --------- Pulmonary arteries Value Reference PA pressure, S, DP 26 mm Hg --------- Tricuspid valve Value Reference Tricuspid regurg peak velocity 2.4 m/sec --------- Tricuspid peak RV-RA gradient 23 mm Hg --------- Tricuspid maximal regurg velocity, PISA 2.38 m/sec --------- Systemic veins Value Reference Estimated CVP 3 mm Hg --------- Right ventricle Value Reference RV pressure, S, DP 26 mm Hg --------- Legend: (L) and (H) stewart values outside specified reference range. Findings Left ventricle: The cavity size is normal. Wall thickness is normal. Systolic function is normal. The estimated ejection fraction is 60-65%.Wall motion is normal; there are no regional wall motion abnormalities. Left ventricular diastolic function parameters are normal. Right ventricle: The cavity size is normal. Wall thickness is normal. Systolic function is normal. Estimation of the right ventricularsystolic pressure is within the normal range. Left atrium: The atrium is normal in size. Right atrium: The atrium is normal in size. Aortic valve: Structurally normal valve. Trileaflet. Doppler: Transvalvular velocity is within the normal range. There is no stenosis. There is no regurgitation. Mitral valve: Structurally normal valve. Doppler: Transvalvular velocity is within the normal range. There is no evidence for stenosis. There is trace regurgitation. Tricuspid valve: Structurally normal valve. Doppler: There is no evidence for stenosis. There is trace regurgitation. Pulmonic valve: Not well visualized. No significant valve disease. Doppler: There is trace regurgitation. Pericardium: There is no significant pericardial effusion. Aorta: Aortic root: The aortic root is not dilated. Systemic veins: Inferior vena cava: The vessel is normal in size. The respirophasicdiameter changes are in the normal range (greater than or equal to 50%). Study data: Location: [address] [place] [place] [address]. Conclusions Summary: 1. Left ventricle: The cavity size is normal. Wall thickness is normal. Systolic function is normal. The estimated ejection fraction is60-65%. Wall motion is normal; there are no regional wall motionabnormalities. Left ventricular diastolic function parameters are normal. 2. Right ventricle: Estimation of the right ventricular systolic pressureis within the normal range. 3. Pericardium, extracardiac: There is no significant pericardialeffusion. Impressions: No previous study was available for comparison. Prepared and signed by Jl Robles MD 03/05/2022 16:20 Jl Robles MD CARDIOGRAPHICS [facility] documented in this encounter Visit Diagnoses Diagnosis Paroxysmal atrial fibrillation (HCC) Atrial fibrillation Palpitations documented in this encounter Additional Health Concerns Assessment Noted Time A fall risk assessment has been complete d for the patient 04/26/2014 7:59 AM CDT documented as of this encounter Care Teams Supervisor Compressed Yeast Relationship Specialty Start Date End Date Jeison Orozco MD PCP - General 12/25/01 08/12/23 documented as of this encounter
--- OUTSIDE RECORDS SUMMARY | 2024-11-07 07:00 | XMS_ITS | Encounter Summary ---
Author Organization [facility] Address [address] [place] [address] Care Team Providers Care Buffing Machine Operator Semiautomatic Name Role Phone Jeison Orozco MD Primary Care Provider Unav ailable Reason for Visit * Reason Comments Derm Problem Encounter Details Date Type Department Care Team (Late st Contact Info) Description 03/10/2023 10:00 AM CDT Office Visit Dermatology - [facility] [address] [place] [address] Olinda Mcmanus PA-C [address] [facility] [place], [place] [id number] Basal cell carcinoma of skin of left lower extremity, including hip (Primary Dx) Social History Tobacco Use Types [...] Progress Notes * Olinda Mcmanus PA-C - 03/10/2023 10:00 AM CDT HPI: Tonya Costello is a 62 year old female. Patient presents with: Derm Problem History: Pt here for f/u of bx proven superficial BCC left lower leg. Pt used Imiquimod M-F for 6 wks, finished about 2 weeks ago. Pt denies any concerns after using topical. Starting to heal. Personal HX of Skin Cancer: No Personal HX AK's: No Personal HX of Malignant Melanoma: No Family HX of Skin Cancer / Malignant Melanoma: No Other history: No further skin c/o Last Office Visit: 12/31/22 PHYSICAL EXAM: Weight: 153 lbs Height: 5'6 RR: 14 Skin exam performed as follows: Type 2 skin. Mood appropriate Alert and Oriented X 3. Well developed, well nourished in no distress. Lt upper back and left lower leg checked Lt anterior mid lower leg: well healed annular pink hyperpigmented scar. ASSESSMENT & PLAN: 1. Bx proven superifical BCC of Lt anterior mid lower leg: healed well. No further treatment with imiquimod cream is needed right now. Pt will keep Rx at home. Advised on moisturizing and sunscreen use. Advised to f/ui n 4 months for next skin exam. Pt understands. PATIENT EDUCATION: Skin care reviewed. Sun avoidance, protection and SSE reviewed. Questions answered, Risks/Benefits alternatives discussed w/ patient. Scar, infection, bleeding, pain purpura, recurrence. 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 Procedure Surgical Procedure Visit [phone] Titus Vieyra MD [address] [place] [address] [address] [place] [address] Scheduled Orders Name Type Priority Associated Diagnoses Orde r Schedule OFFICE/OUTPT VISIT,EST,LEVL II PROCEDURES Routine Basal cell carcinoma of skin of left lower extremity, including hip Ordered: 03/10/2023 documented as of this encounter Visit Diagnoses Diagnosis Basal cell carcinoma of skin of left lower extremity, including hip- Primary documented in this encounter Additional Health Concerns Assessment Noted Time A fall risk assessment has been complete d for the patient 04/26/2014 7:59 AM CDT documented as of this encounter Care Teams Buffing Machine Operator Semiautomatic Relationship Specialty Start Date End Date Jeison Orozco MD PCP - General 12/25/01 08/12/23 documented as of this encounter
--- OUTSIDE RECORDS SUMMARY | 2024-11-07 07:00 | XMS_ITS | Encounter Summary ---
Author Organization [facility] Address [address] [place] [address] Care Team Providers Care Filter Press Operator Name Role Phone Jeison Orozco MD Primary Care Provider Unav ailable Reason for Visit * Reason Comments Sinus Problem Encounter Details Date Type Department Care Team (Late st Contact Info) Description 04/15/2022 3:00 PM CDT Telemedicine Internal Medicine - [facility] [address] [facility] [address] [place], [place] [id number] Qian Mathur MD [address] [facility] [address] [place], [place] [id number] Sinus congestion (Primary Dx) Social History Tobacco Use Types [...] suspected to have Coronavirus/COVID-19? No / Unsure 04/15/2022 2:54 PM CDT documented as of this encounter Functional Status Functional Status Response Date of Assess ment Hearing Problems? No 12/17/2021 Vision Problems? No 12/17/2021 Difficulty walking? No 12/17/2021 Difficulty dressing or bathing? No 12/17/2021 Problems with daily activities? No 12/17/2021 Cognitive Status Response Date of Assessm ent Memory Problems? No 12/17/2021 documented as of this encounter Progress Notes * Qian Mathur MD - 04/15/2022 3:00 PM CDT Tonya Costello is a 61 year old female here today for a telemedicine/video visit. HPI: covid positive 03/24 s/p paxlovid Later developed s/t. Strep negative Increasing sinus congestion now No fevers/chills Taking OTC decongestant Green mucus Current Outpatient Medications Medication Sig Dispense Refill [...] OR Take by mouth. Past Medical History: Diagnosis Date ??? AF [...] drinks/week Drug use: No REVIEW OF SYSTEMS: GENERAL HEALTH: NAD ASSESSMENT AND PLAN: Sinus congestion, recent covid. Consider Acute Bacterial Sinusitis vs paxlovid rebound Empiric zpak Monitor temperature Conservative/symptomatic management discussed. The patient indicates understanding of these issues and agrees to the plan. The patient is asked to return prn. Tonya Costello, a 61 year old female, was scheduled for a telemedicine/video visit and consented to virtual care for today???s visit. Time spent consulting and evaluating patient was 15 minutes. documented in this encounter Plan of Treatment Upcoming Encounters Date Type Department Care Team (Late st Contact Info) Description 11/24/2024 1:00 PM ESTATE PLANNING [place]GAL Procedure Surgical Procedure Visit [phone] Titus Vieyra MD [address] [place] [address] [address] [place] [address] Scheduled Orders Name Type Priority Associated Diagnoses Orde r Schedule OFFICE/OUTPT VISIT,EST,LEVL III PROCEDURES Routine Sinus congestion Ordered: 04/15/2022 documented as of this encounter Visit Diagnoses Diagnosis Sinus congestion- Primary Other diseases of nasal cavity and sinuses documented in this encounter Additional Health Concerns Assessment Noted Time A fall risk assessment has been complete d for the patient 04/26/2014 7:59 AM CDT documented as of this encounter Care Teams Filter Press Operator Relationship Specialty Start Date End Date Jeison Orozco MD PCP - General 12/25/01 08/12/23 documented as of this encounter
--- OUTSIDE RECORDS SUMMARY | 2024-11-07 07:00 | XMS_ITS | Encounter Summary ---
Author Organization [facility] Address [address] [place] [address] Care Team Providers Care Die Try Out Worker Name Role Phone Jeison Orozco MD Primary Care Provider Unav ailable Reason for Visit * Reason Comments Establish Care [facility] 08/28/22 History of plantar fasciitis right foot, Hallux abductovalgus left. Pt presents for orthotic fitting. Encounter Details Date Type Department Care Team (Late st Contact Info) Description 01/13/2023 9:50 AM CDT Office Visit Podiatry - [facility] [address] [place] [address] Margarita Cotter, DP [address] [place] [address] Plantar fasciitis, right (Primary Dx); [...] Progress Notes * Margarita Cotter, DPM - 01/13/2023 9:50 AM CDT Tonya Costello is a 62 year old female. Patient presents with: Establish Care: [facility] 08/28/22 History of plantar fasciitis right foot, Hallux abductovalgus left. Pt presents for orthotic fitting. Allergies: Penicillins RASH Current Meds: Current Outpatient [...] by mouth. Patient presents with: Establish Care: [facility] 08/28/22 History of plantar fasciitis right foot, Hallux abductovalgus left. Pt presents for orthotic fitting. Patient presents to office today for custom molded orthotics. She has a history of plantar fasciitis on the right foot. Orthotics [...] excursion of the 1st ray bilateral ly. Orthotics appear to fit feet well. ASSESSMENT/ PLAN: History of plantar fasciitis right foot Hallux abductovalgus left Plan: F/u exam. Dispensed patient their orthotics. They are advised extensively on appropriate break in period for the orthotics. They are advised to f/u in 6 weeks if they are having problems breaking into the orthotics. ID#[id number] documented in this encounter Plan of Treatment Upcoming Encounters Date Type Department Care Team (Late st Contact Info) Description 11/24/2024 1:00 PM CRIMINAL INVESTIGATOR Procedure Surgical Procedure Visit [phone] Titus Vieyra MD [address] [place] [address] [address] [place] [address] Scheduled Orders Name Type Priority Associated Diagnoses Orde r Schedule OFFICE/OUTPT VISIT,EST,LEVL III PROCEDURES Routine Plantar fasciitis, right Hav (hallux abducto valgus), left Ordered: 01/13/2023 documented as of this encounter Visit Diagnoses Diagnosis Plantar fasciitis, right- Primary Plantar fascial fibromatosis Hav (hallux abducto valgus), left documented in this encounter Additional Health Concerns Assessment Noted Time A fall risk assessment has been complete d for the patient 04/26/2014 7:59 AM CDT documented as of this encounter Care Teams Die Try Out Worker Relationship Specialty Start Date End Date Jeison Orozco MD PCP - General 12/25/01 08/12/23 documented as of this encounter
--- OUTSIDE RECORDS SUMMARY | 2024-11-07 07:00 | XMS_ITS | Encounter Summary ---
Author Organization [facility] Address [address] [place] [address] Care Team Providers Care Speech Language Specialist Name Role Phone Jeison Orozco MD Primary Care Provider Unav ailable Reason for Visit * Reason Comments Establish Care [facility] 04/15/23 Plantar fasciitis, left - cortisone injection given to left heel. Pt presents for 3 week f/u on left foot pain. States the injection only helped for 24 hours after given, then pain came back. 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 Encounter Details Date Type Department Care Team (Late st Contact Info) Description 05/08/2023 2:40 PM CDT Office Visit Podiatry - [facility] [address] [place] [address] Margarita Cotter, DP [address] [place] [address] Plantar fasciitis, left (Primary Dx); Pes cavus Social History Tobacco Use Types Packs/Day Years [...] Progress Notes * Margarita Cotter, DPM - 05/08/2023 2:40 PM CDT Tonya Costello is a 62 year old female. Patient presents with: Establish Care: [facility] 04/15/23 Plantar fasciitis, left - cortisone injection given to left heel. Pt presents for 3 week f/u on left foot pain. States the injection only helped for 24 hours after given, then pain came back. 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 Allergies: Penicillins RASH Current Meds: Current Outpatient [...] mouth. Patient presents with: Establish Care: [facility] 04/15/23 Plantar fasciitis, left - cortisone injection given to left heel. Pt presents for 3 week f/u on left foot pain. States the injection only helped for 24 hours after given, then pain came back. 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 Pt presents in f/u of heel pain, left. States she was pain free for 24 hrs after the injection at last visit. She then went for 2 mile walk and states that the pain then flared up again. Presents with orthotics in hand for my review. Has not been wearing them lately as they hurt her heel. HPI: The pain is worse when first [...] plantar central calcaneal tuberosity. No pain with [id number] compression of the calcaneus, no evidence of tarsal tunnel syndrome on examination. Increased medial arch height bilaterally. X-rays left foot: Negative for acute osseous pathology. Plantar and posterior calcaneal spurring isnoted on lateral view. IMPRESSION: Plantar fasciitis, left. Pes Cavus Heel spur left PLAN: Examined patient, discussed treatment. Obtained x-rays previously. I independently reviewed them and discussed findings with patient. Second injection is provided into the left heel consisting of a total of 2.25 mL of 0.5% Marcaine plain mixed with 1 mL of Celestone Soluspan after ETOH prep. Band-aid was then applied. Patient is advised to ice and stretch t.i.d. and was given written instructions regarding this. Recommended patient modify shoe gear and avoid barefoot walking, begin wearing temporary inserts that were recommended today or break into orthotic again, and followup in 3 weeks. If pain continues, consider PT or custom-molded orthotics. Long-term patient would benefit from custom molded orthotics due to pes cavus foot structure. documented in this encounter Plan of Treatment Upcoming Encounters Date Type Department Care Team (Late st Contact Info) Description 11/24/2024 1:00 PM AUDIO NARRATOR Procedure Surgical Procedure Visit [phone] Titus Vieyra MD [address] [place] [address] [address] [place] [address] Scheduled Orders Name Type Priority Associated Diagnoses Orde r Schedule INJ TENDON/LIGAMENT/CYST PROCEDURES Routine Plantar fasciitis, left Ordered: 05/11/2023 OFFICE/OUTPT VISIT,EST,LEVL III PROCEDURES Routine Plantar fasciitis, left Pes cavus Ordered: 05/11/2023 documented as of this encounter Visit Diagnoses Diagnosis Plantar fasciitis, left- Primary Plantar fascial fibromatosis Pes cavus Talipes cavus documented in this encounter Administered Medications Inactive Administered Medications - up to 3 most recent administrations Medication Order MAR Action Action Date Dose Rate Site betamethasone sodium phosphate & acetate (CELESTONE) 6 (3-3) MG/ML injection 6 mg 6 mg, Intra-articular, Once, On 05/11/23 at 0945, For 1 dose Given 05/08/2023 11:17 AM CDT 6 mg Other documented in this encounter Additional Health Concerns Assessment Noted Time A fall risk assessment has been complete d for the patient 04/26/2014 7:59 AM CDT documented as of this encounter Care Teams Speech Language Specialist Relationship Specialty Start Date End Date Jeison Orozco MD PCP - General 12/25/01 08/12/23 documented as of this encounter
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
--- OUTSIDE RECORDS SUMMARY | 2024-11-07 07:01 | XMS_ITS | Encounter Summary ---
Author Organization [facility] Address [address] [place] [address] Care Team Providers Care Junior High School Teacher Name Role Phone Jeison Orozco MD Primary Care Provider Unav ailable Encounter Details Date Type Department Care Team (Late Contact Info) Description 10/14/2018 E-Visit Internal Medicine - [facility] [address] [place] [address] Jeison Orozco MD Cough (Primary Dx) Social History Tobacco Use Types [...] Date of Assess ment Hearing Problems? No 04/26/2014 Vision Problems? No 04/26/2014 Difficulty walking? No 04/26/2014 Difficulty dressing or bathing? No 04/26/2014 Problems with daily activities? No 04/26/2014 Cognitive Status Response Date of Assessm ent Memory Problems? No 04/26/2014 documented as of this encounter Plan of Treatment Upcoming Encounters Date Type Department Care Team (Late st Contact Info) Description 11/24/2024 1:00 PM CEREAL POPPER Procedure Surgical Procedure Visit [phone] Titus Vieyra MD [address] [place] [address] [address] [place] [address] Scheduled Orders Name Type Priority Associated Diagnoses Orde r Schedule ONLINE E/M BY PHYS PROCEDURES Routine Cough Ordered: 10/14/2018 documented as of this encounter Visit Diagnoses Diagnosis Cough- Primary documented in this encounter Additional Health Concerns Assessment Noted Time A fall risk assessment has been complete d for the patient 04/26/2014 7:59 AM CDT documented as of this encounter Care Teams Junior High School Teacher Relationship Specialty Start Date End Date Jeison Orozco MD PCP - General 12/25/01 08/12/23 documented as of this encounter
--- OUTSIDE RECORDS SUMMARY | 2024-11-07 07:01 | XMS_ITS | Encounter Summary ---
Author Organization [facility] Address [address] [place] [address] Care Team Providers Care De Alcoholizer Name Role Phone Jeison Orozco MD Primary Care Provider Unav ailable Reason for Visit * Reason Onset Date Comments Refill Request 05/05/2020 Encounter Details Date Type Department Care Team (Late st Contact Info) Description 05/05/2020 Refill Med/Peds - [facility] [address] [place], [place] [id number] Jeison Orozco MD Refill Request Social History Tobacco Use Types Packs/Day [...] Exposure Response Date Recorded In the last month, have you been in contact with someone who was confirmed or suspected to have Coronavirus / COVID-19? No / Unsure 05/02/2020 3:58 PM CDT documented as of this encounter Functional Status Functional Status Response Date of Assess ment Hearing Problems? No 12/28/2018 Vision Problems? No 12/28/2018 Difficulty walking? No 12/28/2018 Difficulty dressing or bathing? No 12/28/2018 Problems with daily activities? No 12/28/2018 Cognitive Status Response Date of Assessm ent Memory Problems? No 12/28/2018 documented as of this encounter Progress Notes * Margarita Rainey RN - 05/05/2020 5:17 PM CDT Refill approved and sent to pharmacy by physician. * Margarita Rainey RN - 05/05/2020 1:18 PM CDT Medication(s) to Refill: Requested Prescriptions Pending Prescriptions Disp Refills ??? Fluticasone Propionate 50 MCG/ACT Nasal Suspension 1 Inhaler 2 Si sprays by Each Nare route daily for 4 days. ??? Zolpidem Tartrate 10 MG Oral Tab 30 tablet 0 Sig: Take 1 tablet (10 mg total) by mouth daily. Reason for Medication Refill being sent to Provider / Reason Protocol Failed: [] 90 day refill has already been granted [] Blood Pressure out of range [] Labs Abnormal [] Medication not previously prescribed by Provider [x] Non-Protocol Medication [] Controlled Substance Last Time Medication was Filled: Zolpidem Tartrate 5 MG Oral Tab () 14 tablet 0 07/08/2019 07/22/2019 Sig: ?Take 1 tablet (5 mg total) by mouth nightly for 14 days. Fluticasone Propionate 50 MCG/ACT Nasal Suspension () 1 Bottle 0 10/06/2019 10/07/2019 Sig: ?2 sprays by Each Nare route daily for 1 day. Route: ?Each Nare Order #: ?[id number] Last Office Visit with PCP: 12-28-18 When Patient was Due Back to the Office: Not noted (from when PCP last addressed condition) Future Appointments: No future appointments. Last Blood Pressures: BP Readings from Last 2 Encounters: 01/05/20 : 116/64 10/06/19 : 124/80 Recent Labs: Lab Results Component Value Date GLU 92 12/28/2018 BUN 11.0 12/28/2018 BUNCREA 17.0 12/28/2018 CREATSERUM 0.63 12/28/2018 CA 9.8 12/28/2018 ALKPHO 54 12/28/2018 AST 19 12/28/2018 ALT 19 12/28/2018 BILT 0.39 12/28/2018 TP 7.4 12/28/2018 ALB 4.5 12/28/2018 AGRATIO 1.8 07/25/2011 NA 141 12/28/2018 K 5.33 (H) 12/28/2018 CL 102 12/28/2018 CO2 30.6 (H) 12/28/2018 documented in this encounter Plan of Treatment Upcoming Encounters Date Type Department Care Team (Late st Contact Info) Description 11/24/2024 1:00 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 Procedure Surgical Procedure Visit [phone] Titus Vieyra MD [address] [place] [address] [place] [id number] documented as of this encounter Visit Diagnoses Not on filedocumented in this encounter Additional Health Concerns Infection Onset Date Last Indicated Resolved Time R/O COVID19 05/03/2020 05/03/2020 05/06/2020 5:10 AM CDT Assessment Noted Time A fall risk assessment has been complete d for the patient 04/26/2014 7:59 AM CDT documented as of this encounter Care Teams De Alcoholizer Relationship Specialty Start Date End Date Jeison Orozco MD PCP - General 12/25/01 08/12/23 documented as of this encounter
--- OUTSIDE RECORDS SUMMARY | 2024-11-07 07:01 | XMS_ITS | Encounter Summary ---
Author Organization [facility] Address [address] [place] [address] Care Team Providers Care Quantitative Manager Name Role Phone Jeison Orozco MD Primary Care Provider Unav ailable Reason for Visit * Reason Onset Date Comments Triage 04/24/2018 Encounter Details Date Type Department Care Team (Late st Contact Info) Description 04/24/2018 Telephone Internal Medicine - [facility] [address] [facility] [address] [place], [place] [id number] Jeison Orozco MD Triage Social History Tobacco Use Types Packs/Day Years [...] No 04/26/2014 documented as of this encounter Progress Notes * Callie Jeffery - 04/24/2018 3:57 PM CDT Detailed mlom (cell) as per hipaa form ok Called home number--2 times and went to a weird ring tone and disconnected Called back cell and daughter Marychuy answered and on hipaa Aware pcp called in rx and when better needs to be seen and understands Condolence given to daughter and family for there loss * Ashkan Orozco - 04/24/2018 3:42 PM CDT Tell her I [facility] -- But I have not seen her in 3 years !! Please set up appointment * Callie Jeffery - 04/24/2018 2:45 PM CDT Called pt and states that she is not coming today or next week to be seen She would like a rx for Alprazolam to be called in Correct pharmacy noted * Sonia Winston, CASSIE - 04/24/2018 2:03 PM CDT [phone] Left detailed message on VM * Ashkan Orozco - 04/24/2018 1:13 PM CDT I am happy to see in [place] this afternoon [facility] * Sonia Winston, CASSIE - 04/24/2018 12:48 PM CDT Pt's sister Yohana called, not on HIPAA Pt and just found out their son in an accident Reports pt is just staring at the wall Phone handed to pt. States all her relatives think she should be taking some xanex or something but she isn't sure States she doesn't know what to think. States she is able to eat Denies suicidal thoughts. Pt is not in distress. MD please advise ADULT TRIAGE BUILD - Behavior Medicine Suicide or Homicide Attempt, Threat / Substance Abuse / Child & Domestic Abuse / Confusion / Anxiety / Overdose ??? Refer only to ER and ICC when the conditions are met below or state why in the additional note section ? ? In general if condition > 24 hours and not significantly worsening, patient may be offered an appointment at their PCPs office ??? If workup ongoing for a condition, patient should stay with physician doing work-up Additional Notes: Patient advised to call back with any new or worsening symptoms. Caregiver/patient indicated understanding. Care Now: ED Suicidal, Homicidal, Depressed, Hyperactivity, Anxiety, and any Overdose: Triage Nurse to call police or 911 [] Suicide or Homicide Attempt or Thoughts with a specific plan and means to carry out the plan [] Refusal to talk anymore with specific plans and means to carry out the plan [] Patient unwilling or unable to be de-escalated from plan and intent for suicide/homicide or other self-harm behavior [] Unconscious / Altered mental status / Difficult to Awaken [] Intoxication / Unresponsive [] Apnea or difficulty breathing (not able to speak in full sentences) [] Face, lips, tongue blue or velez [] Seizures present [] Possible Overdose [] Suspected ingestion of unknown drug [] Slurred Speech [] Patient has plan, intent, ability to carry out plan [] New onset of confusion or delusional thinking [] New or worsening Hallucinations (auditory or visual) or delusions present High level risk: Instruct patient to call 911 [] Vomiting blood or coffee-grounds [] Associated chest pain [] Feeling very Shaky (visible tremors of hands) or very restless/hyperactive [] Active Illicit drug or alcohol use [] Fever > 100.5 and history of IV drug use [] Any Change in Mental Status [] Face, lips, tongue, mouth blue or velez [] Light-headedness (faint feeling upon changing positions) causing difficulty ambulating or normalfunctioning. [] Excessive sweating or saliva production [] Acute decompensation in ability to care for oneself [] All Intentional Overdose / Poisoning Care Now: Immediate Care ??? Call [facility] Site Nurse for immediate access, site availability and acceptance ??? Must bring a responsible adult public transit bus driver with the patient Instruct patient to call Poison Control if capable. Triage nurse to call Poison Control If not capable or reliable: Determine substance, time(s), and amount of exposure, and call Poison Control to assist with disposition. High risk intervention: o Do not leave patient unattended when concern for imminent self-harm o Call emergency contact if patient not accompanied Anxiety: [] Hyperventilation (able to speak without respiratory distress, and able to ambulate without assistance) [] Light-headedness (but able to ambulate well without assistance) PCP Care: ALL OTHER SYMPTOMS - ??? Recommend first available appointment with PCP ??? Patient may be seen later at their request ? ? SDA/AHC if patient requesting to be seen today & PCP cannot accommodate Suicide: Mid-level risk [] Patient has thoughts of hastened , suicidal ideation [] Patient able to be de-escalated from plan and intent for suicide [] Patient willing to follow up with behavioral health provider Mid-level risk intervention: o Call emergency contact if patient unaccompanied o If has behavioral health provider, contact with patient status. If no behavioral health provider,make referral. o Provide # for National Suicide Prevention Line [phone] Low risk [] Patient may have thoughts of hastened or suicide [] Patient has no plan, means, intent for suicide Low level interventions o If has behavioral health provider, encourage patient to schedule follow up with provider; if no provider, make behavioral health referral, or have pt see PCP o Provide # for National Suicide Prevention Line [phone] Depression: [] New onset of depression [] Post- depression [] Worsening depression [] Suicidal thoughts but no plan or injuries [] Difficulty Sleeping [] History of anxiety episodes [] Caller requesting help or referral for behavioral health services [] History of depression associated with weight loss [] Caller requesting help or referral for behavioral health services [] Possible sexual contact in otherwise nonconsensual relationship or minor Addiction: [] Request for addiction services [] History of intermittent use and has concerns [] Drinks Alcohol on a daily basis and is having difficulty controlling the amount that drinks [] Alcohol / Drug use interferes with work or school [] Men drinking more than 14 drinks per week [] Women drinking more than 7 drinks per week [] Patient Requesting to be seen and does not qualify for above categories Home Care (Only If Patient refuses assessment via office visit, video visit or e-visit.) ??? Home Care instructions only to be used if patient???s symptoms do not trigger referral to ED orICC ??? Patient/Paralegals instructed on Home Care as listed below and verbally indicated understanding. Patient/Paralegals instructed to call back if symptoms persist or worsen Follow home care instructions and call back if no improvement w/in 48 hrs to make appt. w/ PCP. 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
--- OUTSIDE RECORDS SUMMARY | 2024-11-07 07:01 | XMS_ITS | Encounter Summary ---
Author Organization [facility] Address [address] [place] [address] Care Team Providers Care Package Checker Name Role Phone Sona Saenz MD Primary Care Provider [phone] Encounter Details Date Type Department Care Team (Late Contact Info) Description 12/28/2018 Orders Only Internal Medicine - [facility] [address] [facility] [address] [place] [address] Jeison Orozco MD Screening for blood disease; Screening for metabolic disorder; Screening for thyroid disorder; Screening for lipid disorders; Screening for diabetes mellitus Social History Tobacco Use Types Packs/Day Years [...] No 12/28/2018 documented as of this encounter Plan of Treatment Upcoming Encounters Date Type Department Care Team (Late st Contact Info) Description 11/24/2024 1:00 PM DATABASE PROGRAMMER Procedure Surgical Procedure Visit [phone] Titus Vieyra MD [address] [place] [address] [address] [place] [address] documented as of this encounter Procedures Procedure Name Priority Date/Time Associated Diagnosis Comments COMPLETE BLOOD COUNT (CBC) WITH DIFFERENTIAL Routine 12/28/2018 10:49 AM DATABASE PROGRAMMER Screening for blood disease COMPREHENSIVE METABOLIC PANEL Routine 12/28/2018 10:49 AM DATABASE PROGRAMMER Screening for metabolic disorder LIPID PANEL Routine 12/28/2018 10:49 AM DATABASE PROGRAMMER Screening for lipid disorders HEMOGLOBIN A1C Routine 12/28/2018 10:49 AM DATABASE PROGRAMMER Screening for diabetes mellitus CBC WITH DIFFERENTIAL WITH PLATELET Routine 12/28/2018 10:49 AM DATABASE PROGRAMMER Screening for blood disease TSH W REFLEX TO FREE T4 Routine 12/28/2018 10:49 AM DATABASE PROGRAMMER Screening for thyroid disorder documented in this encounter Results * CBC W/ DIFFERENTIAL (12/28/2018 10:49 AM DATABASE PROGRAMMER) WBC 4.18 4.00 - 13.00 10^3/uL 12/28/2018 2:25 PM DATABASE PROGRAMMER [facility] RBC 4.28 3.80 - 5.10 10^6/uL 12/28/2018 2:25 PM DATABASE PROGRAMMER [facility] Hemoglobin 13.3 12.0 - 16.0 g/dL 12/28/2018 2:25 PM DATABASE PROGRAMMER [facility] Hematocrit 41.3 34.0 - 50.0 % 12/28/2018 2:25 PM DATABASE PROGRAMMER [facility] MCV 96.5 81.0 - 100.0 fL 12/28/2018 2:25 PM DATABASE PROGRAMMER [facility] MCH 31.1 27.0 - 33.2 pg 12/28/2018 2:25 PM DATABASE PROGRAMMER [facility] MCHC 32.2 31.0 - 37.0 g/dL 12/28/2018 2:25 PM DATABASE PROGRAMMER [facility] Platelet Count 249 150 - 450 10^3/uL 12/28/2018 2:25 PM [facility] RDW 13.3 11.5 - 16.0 % 12/28/2018 2:25 PM [facility] MPV 11.2 7.0 - 11.5 fL 12/28/2018 2:25 PM [facility] Neutrophils Absolute 2.19 1.30 - 6.70 10? 3 /??L 12/28/2018 2:25 PM [facility] Lymphocytes Absolute 1.31 0.90 - 4.00 10? 3 /??L 12/28/2018 2:25 PM [facility] Monocytes Absolute 0.47 0.10 - 0.60 10? 3 /??L 12/28/2018 2:25 PM [facility] Eosinophils Absolute 0.18 0.00 - 0.30 10? 3 /??L 12/28/2018 2:25 PM [facility] Basophils Absolute 0.03 0.00 - 0.10 10? 3 /??L 12/28/2018 2:25 PM [facility] Neutrophils % 52.5 % 12/28/2018 2:25 PM [facility] Lymphocytes % 31.3 % 12/28/2018 2:25 PM [facility] Monocytes % 11.2 % 12/28/2018 2:25 PM [facility] Eosinophils % 4.3 % 12/28/2018 2:25 PM [facility] Basophils % 0.7 % 12/28/2018 2:25 PM [facility] Blood Venipuncture / Unknown 12/28/2018 10:49 AM DATABASE PROGRAMMER 12/28/2018 10:49 AM [facility] Jeison Orozco MD LAB BLOOD ORDERABLE S [facility] [address] [place], [place] [address] [place] [address] * HEMOGLOBIN A1C (12/28/2018 10:49 AM [facility]) HbA1c 5.5 4.0 - 5.6 % 12/28/2018 3:21 PM [facility] Estimated Average Glucose 111 mg/dL 12/28/2018 3:21 PM [facility] Comment:eAG is the estimated average glucose calculated from Hgb A1c according to the formula recommended by the [place] [employer].eAG levels reflect the fpc average glucose and may not correlate with random or fasting glucose levels since these represent specific points in time. Whole blood Venipuncture / Unknown 12/28/2018 10:49 AM DATABASE PROGRAMMER 12/28/2018 10:49 AM DATABASE PROGRAMMER Jeison Orozco MD LAB BLOOD ORDERABLE S Performing Organization Address [facility] Co de Phone Number [facility] [address] [phone] * (ABNORMAL) LIPID PANEL (12/28/2018 10:49 AM DATABASE PROGRAMMER) Triglycerides 71.00 <=150.00 mg/dL 12/28/2018 3:34 PM [facility] Direct HDL 69(H) <=65 mg/dL 12/28/2018 3:34 PM [facility] Comment:Guidelines for high density lipoprotein (HDL) are adapted from the National Cholesterol Education Program (NCEP).Values >60 mg/dL are considered a negative risk factor for coronary heart disease (CHD) and are considered protective. Risk Factor 2.5 <5.0 12/28/2018 3:34 PM [facility] Cholesterol 171.00 <=200.00 mg/dL 12/28/2018 3:34 PM [facility] Calculated LDL 88 <=200 mg/dL 12/28/2018 3:34 PM [facility] Total Chol/HDL Ratio 2 12/28/2018 3:34 PM [facility] Calculated VLDL 14 mg/dL 9 3:34 PM [facility] Blood Venipuncture / Unknown 12/28/2018 10:49 AM DATABASE PROGRAMMER 12/28/2018 10:49 AM DATABASE PROGRAMMER Jeison Orozco MD LAB BLOOD ORDERABLE S Performing Organization Address City/[facility]/ZIP Co de Phone Number [facility] [address] [phone] * TSH W REFLEX TO FREE T4 (12/28/2018 10:49 AM DATABASE PROGRAMMER) TSH 1.315 0.350 - 5.500 mIU/L 12/28/2018 6:41 PM [facility] Blood Venipuncture / Unknown 12/28/2018 10:49 AM DATABASE PROGRAMMER 12/28/2018 10:49 AM DATABASE PROGRAMMER Jeison Orozco MD LAB BLOOD ORDERABLE S [facility] [address] [phone] * (ABNORMAL) COMP METABOLIC PANEL (14) (12/28/2018 10:49 AM DATABASE PROGRAMMER) Pathologist [facility] Patient Fasting? No 12/29/19 19 3:34 PM [facility] Glucose 92 74 - 109 mg/dL 12/28/2018 3:34 PM [facility] Blood Urea Nitrogen 11.0 6.0 - 20.0 mg/dL 12/28/2018 3:34 PM [facility] Creatinine 0.63 0.50 - 0.90 mg/dL 12/28/2018 3:34 PM [facility] BUN/CREAT Ratio 17.0 10.0 - 20.0 12/28/2018 3:34 PM [facility] Sodium 141 136 - 145 mmol/L 12/28/2018 3:34 PM [facility] Potassium 5.33(H) 3.50 - 5.10 mmol/L 12/28/2018 3:34 PM [facility] Chloride 102 98 - 107 mmol/L 12/28/2018 3:34 PM [facility] Carbon Dioxide 30.6(H) 22.0 - 29.0 mmol/L 12/28/2018 3:34 PM [facility] Calcium 9.8 8.6 - 10.0 mg/dL 12/28/2018 3:34 PM [facility] Total Protein 7.4 6.4 - 8.3 g/dL 12/28/2018 3:34 PM [facility] Albumin 4.5 3.5 - 5.2 g/dL 12/28/2018 3:34 PM [facility] Bilirubin, Total 0.39 0.00 - 1.20 mg/dL 12/28/2018 3:34 PM [facility] Alkaline Phosphatase 54 46 - 118 U/L 12/28/2018 3:34 PM [facility] AST 19 0 - 32 U/L 12/28/2018 3:34 PM [facility] ALT 19 0 - 33 U/L 12/28/2018 3:34 PM [facility] GFR CKD-EPI 97.81 >=60.00 mL/min/1.7 3 m?? 12/28/2018 3:34 PM [facility] Comment: Estimated GFR units: mL/min/1.73 square meters eGFR calculated by the CKD-EPI equation. Blood Venipuncture / Unknown 12/28/2018 10:49 AM DATABASE PROGRAMMER 12/28/2018 10:49 AM DATABASE PROGRAMMER Jeison Orozco MD LAB BLOOD ORDERABLE S [facility] [address] [facility] [phone] documented in this encounter Visit Diagnoses Diagnosis Screening for blood disease Screening for unspecified disorder of blood and blood-forming organs Screening for metabolic disorder Screening for thyroid disorder Screening for lipid disorders Screening for diabetes mellitus documented in this encounter Additional Health Concerns Infection Onset Date Last Indicated Resolved Time R/O COVID19 05/03/2020 05/03/2020 05/06/2020 5:10 AM CDT Assessment Noted Time A fall risk assessment has been complete d for the patient 04/26/2014 7:59 AM CDT documented as of this encounter Care Teams Package Checker Relationship Specialty Start Date End Date Sona Saenz MD [address] [facility] [address] [place] [address] PCP - General Internal Medicine 06/07/24 documented as of this encounter
--- OUTSIDE RECORDS SUMMARY | 2024-11-07 07:01 | XMS_ITS | Encounter Summary ---
Author Organization [facility] Address [address] [place] [address] Care Team Providers Care Heating And Air Conditioning Mechanic Name Role Phone Jeison Orozco MD Primary Care Provider Unav ailable Encounter Details Date Type Department Care Team (Late st Contact Info) Description 02/24/2019 [facility] [address] [place] [address] Titus Vieyra MD [address] [place] [address] Social History Tobacco Use Types Packs/Day Years [...] as of this encounter Progress Notes * Jeanine Mcpherson MA - 02/24/2019 4:22 PM CDT Notified Tonya Costello regarding instructions for the Colonoscopy bowel PREP ?? Clear liquid diet entire day prior to the procedure ?? Reviewed with Tonya Costello the start times for the bowel prep ?? Verified date/location for procedure ?? Directions/prescription/map/scheduling sheet mailed to patient ?? Patient to call us if prep is not received in 4 business days documented in this encounter Plan of Treatment Upcoming Encounters Date Type Department Care Team (Late st Contact Info) Description 11/24/2024 1:00 PM STOGIE PACKER Procedure Surgical Procedure Visit [phone] Titus Vieyra MD [address] [place] [address] [address] [place] [address] documented as of this encounter Visit Diagnoses Not on filedocumented in this encounter Additional Health Concerns Assessment Noted Time A fall risk assessment has been complete d for the patient 04/26/2014 7:59 AM CDT documented as of this encounter Care Teams Heating And Air Conditioning Mechanic Relationship Specialty Start Date End Date Jeison Orozco MD PCP - General 12/25/01 08/12/23 documented as of this encounter
--- OUTSIDE RECORDS SUMMARY | 2024-11-07 07:01 | XMS_ITS | Encounter Summary ---
Author Organization [facility] Address [address] [place] [address] Care Team Providers Care Commercial Floor Covering Installer Name Role Phone Jeison Orozco MD Primary Care Provider Unav ailable Reason for Visit * Reason Comments Sinus Problem x1 week Encounter Details Date Type Department Care Team (Late st Contact Info) Description 10/08/2017 9:10 PM STAIR BUILDER Office Visit Express Care - [facility] [address] [place], [place] [id number] Adult, [place] After Hours Acute maxillary sinusitis, recurrence not specified (Primary Dx) Social History Tobacco Use Types [...] Sign Reading Time Taken Comments Blood Pressure 112/72 10/08/2017 8:51 PM STAIR BUILDER Pulse 86 10/08/2017 8:51 PM STAIR BUILDER Temperature 36.5 ??C (97.7 ??F) 10/08/2017 8:51 PM CS T Respiratory Rate 14 10/08/2017 8:51 PM STAIR BUILDER Oxygen Saturation - - Inhaled Oxygen Concentration - - Weight - [...] No 04/26/2014 documented as of this encounter Patient Instructions * Patient Instructions* Holland Kendall DO - 10/08/2017 9:10 PM STAIR BUILDER Thank you for coming in today. You were seen today by: HOLLAND KENDALL DO [facility] [address] [place] [address] Please note any medications prescribed from today's visit are intended for a short duration to address your acute concern. If you feel you need refills of any of the prescribed medications from today's visit, please follow-up with your Primary Care Physician. R BUILDER documented in this encounter Progress Notes * Holland Kendall DO - 10/08/2017 9:10 PM CST [facility] - HOLLAND KENDALL DO - 10/08/2017 CHIEF COMPLAINT: Patient presents with: Sinus Problem: x1 week HISTORY OF PRESENT ILLNESS: Tonya Costello is a 56 year old female who presents with the above. Duration: 1 week Change since onset: worsening Facial pain, pressure, or fullness: yes Purulent rhinorrhea: yes Post-nasal drainage: yes Nasal obstruction/blockage: yes Anosmia: yes Fever: no Chills: no Fatigue: yes Ear pain/pressure/fullness: right ear pain Maxillary toothache: yes, right side Cough: yes; productive: no; shortness of breath: no; wheezing: no REVIEW OF SYSTEMS: Pertinent positive and negative symptoms noted in HPI. PHYSICAL EXAM: VITALS: BP 112/72 Pulse 86 Temp 97.7 ??F (36.5 ??C) (Tympanic) Resp 14 . GEN: Ill and tired in appearance. Sounds congested. HEENT: Conjunctiva clear. TM clear bilaterally. Oropharynx without exudate, erythema; post-nasal drainage present. Tenderness to maxillary sinuses, worse on right NECK: Supple. No lymphadenopathy. RESP: Clear to auscultation bilaterally. Normal respiratory effort. Good air movement. Negative egophony ASSESSMENT & PLAN: Tonya Costello is a 56 year old female with the above past medical history who presents with: 1. Acute maxillary sinusitis, recurrence not specified - azithromycin 250 MG Oral Tab; Take 2 tablets together on first day. Then take 1 tablet once a dayfor the next 4 days. Dispense: 6 tablet; Refill: 0 - Fluticasone Propionate 50 MCG/ACT Nasal Suspension; 2 sprays by Each Nare route daily. Take for 1week and then as needed. Dispense: 1 Bottle; Refill: 0 - loratadine 10 MG Oral Tab; Take 1 tablet (10 mg total) by mouth daily. Take for 1 week and then as needed. Dispense: 30 tablet; Refill: 0 Return in about 1 week (around 10/15/2017) for no improvement or sooner if worsening with PCP. Patient given opportunity to ask questions. All questions answered. Patient states understanding and agrees to the above treatment plan. Future Appointments Date Time Provider Department Center 10/08/2017 9:10 PM Ankit Aly After Hours [facility] 1801 ALLERGIES: Penicillins Rash CURRENT MEDICATIONS: Outpatient Prescriptions Marked as Taking for the 10/08/17 encounter (Office Visit) with Ankit Aly After Hours: azithromycin 250 MG Oral Tab Take 2 tablets together on first day. Then take 1 tablet once a day for the next 4 days. Disp: 6 tablet Rfl: 0 Fluticasone Propionate 50 MCG/ACT Nasal Suspension 2 sprays by Each Nare route daily. Take for 1 week and then as needed. Disp: 1 Bottle Rfl: 0 loratadine 10 MG Oral Tab Take 1 tablet (10 mg total) by mouth daily. Take for 1 week and then as needed. Disp: 30 tablet Rfl: 0 Nutritional Supplements (JUICE PLUS FIBRE OR) Take by mouth daily. Disp: Rfl: Estradiol (VAGIFEM) [address] vaginally. Use twice weekly Disp: Rfl: PAST MEDICAL HISTORY: Past Medical History: Diagnosis Date ??? AF (atrial fibrillation) ([facility]) 06/21/2013 ??? Arrhythmia PAF, ablation 03/2014 ??? Tinnitus x years (had seen ENT) PAST SURGICAL HISTORY: Past Surgical History: 05/04/15: COLONOSCOPY Comment: Diverticulosis. Tattoo at 40 cm unremarkable. 10 mm flat cecal polyp (hp). 18 mm flat ascending adenoma s/p tattoo/piecemeal resection. 3 mm transverse serrated. repeat 3-6 months 11/2015: COLONOSCOPY Comment: unremarkable tattoos in ascending and 50 cm, small descending adenoma, diverticulosis. repeat 3 years 05/04/2015: COLONOSCOPY FLX W/ENDOSCOPIC MUCOSAL RESECTION N/A 08/03/2012: COLONOSCOPY,BIOPSY Comment: small cecal and ascending colon polps. Also, 13 mm flat polyp at about 40 cm from anus was tattooed was adenoma. Joaquin-colonic diverticulosis 05/04/2015: COLONOSCOPY,BIOPSY N/A 08/03/2012: COLONOSCOPY,REMV LESN,SNARE 05/04/2015: COLONOSCOPY,REMV LESN,SNARE N/A 08/03/2012: COLONOSCPY, FLEXIBLE, PROXIMAL TO SPLENIC FLEX* No date: OTHER SURGICAL HISTORY Comment: facial plastic surgery No date: REMOVAL OF COCCYX Comment: broken coccyx, fall / childbirth/jet ski 01/11/2013: SIGMOIDOSCOPY,BIOPSY Comment: 3 mm sigmoid polyp was adenoma. No recurrent polyp at tattoo site at 40 cm SOCIAL HISTORY: Smoking status: Former Smoker Packs/day: 0.00 Years: 10.00 Smokeless tobacco: Never Used Comment: quit 26 yrs ago Alcohol use: Yes Comment: socially, 7 drinks/week FAMILY HISTORY: No family history on file. R BUILDER documented in this encounter Plan of Treatment Upcoming Encounters Date Type Department Care Team (Late st Contact Info) Description 11/24/2024 1:00 PM STAIR BUILDER Procedure Surgical Procedure Visit [phone] Titus Vieyra MD [address] [place] [address] [address] [place] [address] Scheduled Orders Name Type Priority Associated Diagnoses Orde r Schedule OFFICE/OUTPT VISIT,EST,LEVL III PROCEDURES Routine Acute maxillary sinusitis, recurrence not specified Ordered: 10/08/2017 documented as of this encounter Visit Diagnoses Diagnosis Acute maxillary sinusitis, recurrence not specified- Primary documented in this encounter Additional Health Concerns Assessment Noted Time A fall risk assessment has been complete d for the patient 04/26/2014 7:59 AM CDT documented as of this encounter Care Teams Commercial Floor Covering Installer Relationship Specialty Start Date End Date Jeison Orozco MD PCP - General 12/25/01 08/12/23 documented as of this encounter
--- OUTSIDE RECORDS SUMMARY | 2024-11-07 07:01 | XMS_ITS | Encounter Summary ---
Author Organization [facility] Address [address] [place] [address] Care Team Providers Care Computer Systems Security Analyst Name Role Phone Jeison Orozco MD Primary Care Provider Unav ailable Reason for Visit * Reason Comments Ear Pain Sinus Problem Encounter Details Date Type Department Care Team (Late st Contact Info) Description 01/05/2020 8:15 AM CDT Office Visit Internal Medicine - [facility] [address] [facility] [address] [address] [place] [address] Marie Doran MD Ear pain, right (Primary Dx) Social History Tobacco Use Types [...] Sign Reading Time Taken Comments Blood Pressure 116/64 01/05/2020 8:29 AM CDT Pulse 66 01/05/2020 8:29 AM CDT Temperature 37 ??C (98.6 ??F) 01/05/2020 8:29 AM CDT Respiratory Rate - - Oxygen Saturation 97% 01/05/2020 8:29 AM CDT Inhaled Oxygen Concentration - - Weight 70.3 kg (155 lb) 01/05/2020 8:29 AM CDT Height 167.6 cm (5' 6 ) 01/05/2020 8:29 AM CDT Body Mass Index 25.02 01/05/2020 8:29 AM CDT documented in this encounter Functional Status Functional Status Response Date of Assess ment Hearing Problems? No 12/28/2018 Vision Problems? No 12/28/2018 Difficulty walking? No 12/28/2018 Difficulty dressing or bathing? No 12/28/2018 Problems with daily activities? No 12/28/2018 Cognitive Status Response Date of Assessm ent Memory Problems? No 12/28/2018 documented as of this encounter Progress Notes * Marie Doran MD - 01/05/2020 8:15 AM CDT Tonya Costello is a 59 year old female. Patient presents with: Ear Pain Sinus Problem HPI: Patient started 2 weeks ago with lump in right ear. It felt like a pimple. It popped 5 days ago anddrain. Now resolved. She is going to [place] in a couple of weeks and would like her ear to be checked. She still feels like at pulling sensation inside her ear. No more pain or discomfort. No fever, no chills, no cough, no sore throat, no headaches, no sinus pressure pain, no chest pain, no shortness of breath. She has some nasal congestion that is not new. No other complaints. Past Medical History: Diagnosis Date ??? AF [...] years ??? COLONOSCOPY, POSSIBLE BIOPSY, POSSIBLE POLYPECTOMY 49263 N/A 05/04/2015 Performed by Titus Vieyra MD at [facility] ??? COLONOSCOPY, POSSIBLE BIOPSY, POSSIBLE POLYPECTOMY 51383 N/A 08/03/2012 Performed by Titus Vieyra MD at [facility] ??? FLEXIBLE SIGMOIDOSCOPY WITH BIOPSY, POLYPECTOMY N/A 01/11/2013 Performed by Titus Vieyra MD at [facility] ??? OTHER SURGICAL HISTORY facial plastic surgery ??? REMOVAL OF COCCYX broken coccyx, fall / childbirth/jet ski History reviewed. No pertinent family history. Social History: Social History Tobacco Use Smoking status: Former Smoker Years: 10.00 Smokeless tobacco: Never Used Tobacco comment: quit 26 yrs ago Alcohol use: Yes Comment: socially, 7 drinks/week Drug use: No Allergies: Penicillins RASH Current Meds: Current Outpatient Medications Medication Sig Dispense Refill ??? azithromycin 250 MG Oral Tab 2 stat then one daily 6 tablet 0 ??? Pseudoephedrine-guaiFENesin ER (MUCINEX D) 60-600 MG Oral Tablet 12 Hr Take 1 tablet by mouth every 12 (twelve) hours. 28 tablet 0 ??? Nutritional Supplements (JUICE PLUS FIBRE OR) Take by mouth. ??? Erlanger 3-6-9 Fatty Acids (OMEGA 3-6-9 COMPLEX OR) Take by mouth. ??? Cholecalciferol (VITAMIN D) 1000 units Oral Tab Take by mouth. ??? B Jqldnqz-B-Tjfdi Acid (HM VITAMIN B COMPLEX/VITAMIN C) Oral Tab Take by mouth. ??? TURMERIC OR Take by mouth. ??? Probiotic Product (PROBIOTIC DAILY OR) Take by mouth. ROS: 10 systems reviewed and negative with exceptions noted in HPI. PHYSICAL EXAM: BP 116/64 (BP Location: Right arm, Patient Position: Sitting, Cuff Size: adult) Pulse 66 Temp 98.6 ??F (37 ??C) (Oral) Ht 5' 6 Wt 155 lb SpO2 97% BMI 25.02 kg/m?? GENERAL HEALTH: well developed, well nourished, in no apparent distress HEENT: normocephalic; normal pharynx, TM intact, no erythema or discharge appreciated, nasal mucosamildly edematous. NECK: supple;no LAD RESPIRATORY: clear to auscultation CARDIOVASCULAR: S1, S2 normal, RRR; murmur negative ABDOMEN: normal active BS+, soft, nondistended; nontender, no G/R EXTREMITIES: no edema PSYCHIATRIC: alert and oriented x 3; affect appropriate ASSESSMENT/ PLAN: Diagnoses and all orders for this visit: Ear pain, right Resolved, no signs of infection.RTO if worsening symptoms. Patient understands and agrees with the plan. documented in this encounter Plan of Treatment Upcoming Encounters Date Type Department Care Team (Late st Contact Info) Description 11/24/2024 1:00 PM BRASS FINISHER Procedure Surgical Procedure Visit [phone] Titus Vieyra MD [address] [place] [address] [address] [place] [address] Scheduled Orders Name Type Priority Associated Diagnoses Orde r Schedule OFFICE/OUTPT VISIT,EST,LEVL II PROCEDURES Routine Ear pain, right Ordered: 01/05/2020 documented as of this encounter Visit Diagnoses Diagnosis Ear pain, right- Primary documented in this encounter Additional Health Concerns Assessment Noted Time A fall risk assessment has been complete d for the patient 04/26/2014 7:59 AM CDT documented as of this encounter Care Teams Computer Systems Security Analyst Relationship Specialty Start Date End Date Jeison Orozco MD PCP - General 12/25/01 08/12/23 documented as of this encounter
--- OUTSIDE RECORDS SUMMARY | 2024-11-07 07:01 | XMS_ITS | Encounter Summary ---
Author Organization [facility] Address [address] [place] [address] Care Team Providers Care Food Processing Chemist Name Role Phone Jeison Orozco MD Primary Care Provider Unav ailable Encounter Details Date Type Department Care Team (Late st Contact Info) Description 12/17/2021 10:45 AM AGRICULTURAL CROP FARM MANAGER Ancillary Procedure Radiology - [facility] [address] [place], [place] [id number] Right hip pain Social History Tobacco Use Types Packs/Day [...] Progress Notes * Qian Mathur MD - 12/17/2021 10:45 AM CST See MyChart comments CULTURAL CROP FARM MANAGER documented in this encounter Plan of Treatment Upcoming Encounters Date Type Department Care Team (Late st Contact Info) Description 11/24/2024 1:00 PM AGRICULTURAL CROP FARM MANAGER Procedure Surgical Procedure Visit [phone] Titus Vieyra MD [address] [place] [address] [address] [place] [address] documented as of this encounter Procedures Procedure Name Priority Date/Time Associated Diagnosis Comments XR HIP W OR WO PELVIS 2 OR 3 VIEWS, RIGHT (SZS=03612) Routine 12/17/2021 10:48 AM AGRICULTURAL CROP FARM MANAGER Right hip pain documented in this encounter Results * XR HIP W OR WO PELVIS 2 OR 3 VIEWS, RIGHT (HNO=[id number]) (12/17/2021 10:48 AM AGRICULTURAL CROP FARM MANAGER) Anatomical Region Laterality Modality Hip Right Computed Radiogr aphy 12/17/2021 11:0 6 AM AGRICULTURAL CROP FARM MANAGER Impressions 12/17/2021 11:07 AM AGRICULTURAL CROP FARM MANAGER IMPRESSION: Unremarkable radiographic appearance of the right hip. Narrative 12/17/2021 11:07 AM AGRICULTURAL CROP FARM MANAGER DATE OF SERVICE: 12.17.2021 RIGHT HIP, FRONTAL/NEUTRAL AND EXTERNAL ROTATION (2 VIEWS) CLINICAL INFORMATION: ??Right hip pain. COMPARISON: None. FINDINGS There is no evidence for fractures or dislocations. No significant arthritic changes are identified. The joint space is grossly intact. The iliopectineal and ilioischial lines are not disrupted. The right pubic rami are grossly intact. Procedure Note Dilip San DO - 12/17/2021 DATE OF SERVICE: 12.17.2021 RIGHT HIP, FRONTAL/NEUTRAL AND EXTERNAL ROTATION (2 VIEWS) CLINICAL INFORMATION: Right hip pain. COMPARISON: None. FINDINGS There is no evidence for fractures or dislocations. No significant arthritic changes are identified. The joint space is grossly intact. The iliopectineal and ilioischial lines are not disrupted. The right pubic rami are grossly intact. ===== IMPRESSION: Unremarkable radiographic appearance of the right hip. Qian Mathur MD RIS XRAY documented in this encounter Visit Diagnoses Diagnosis Right hip pain Pain in joint, pelvic region and thigh documented in this encounter Additional Health Concerns Assessment Noted Time A fall risk assessment has been complete d for the patient 04/26/2014 7:59 AM CDT documented as of this encounter Care Teams Food Processing Chemist Relationship Specialty Start Date End Date Jeison Orozco MD PCP - General 12/25/01 08/12/23 documented as of this encounter
--- OUTSIDE RECORDS SUMMARY | 2024-11-07 07:01 | XMS_ITS | Encounter Summary ---
Author Organization [facility] Address [address] [place] [address] Care Team Providers Care Telemetry Monitor Name Role Phone Jeison Orozco MD Primary Care Provider Unav ailable Reason for Visit * Reason Onset Date Comments Schedule Surgery 12/31/2018 Encounter Details Date Type Department Care Team (Late st Contact Info) Description 12/31/2018 [facility] [address] [place] [address] Titus Vieyra MD [address] [place] [address] Schedule Surgery Social History Tobacco Use Types [...] as of this encounter Progress Notes * Robin Carr - 12/31/2018 8:24 AM CST Ok to leave detailed message regarding preparation on cell or home phone? WORK or HOME Yes -[phone] (home) [phone] (work) CELL Yes- Telephone Information: Bowel Preparation BowelPreparation:Miralax/Gatoraide EGD instructions: N/A Special Instructions: Yes, 2 day prep Sedation MAC Sedation ? No. Clinical History History of MRSA ? No. History of C-DIFF ? No. History of STAR ?No. Allergies to Latex? No Pacemaker ? No. DE fib/AICD? No. BMI: Estimated body mass index is 24.21 kg/m?? as calculated from the following: Height as of an earlier encounter on 12/31/18: 5' 6 (1.676 m). Weight as of an earlier encounter on 12/31/18: 150 lb (68 kg). Patient on Dialysis? No Patient has COPD with home Oxygen? No Have you or any of your family members suffered from malignant hyperthermia? No Anticoagulant therapy Anticoagulant /Antiplatelet therapy /Blood thinners? if yes, which one No Procedure Colonoscopy [45813] Insurance Verified: Yes, BCBS Header Color: Bright Blue Scheduled at: Yes, [facility] Scheduling Comments: Scheduling info/prep sent: To be sent via [employer] by electrical panel builder NOTE: IF SENDING THIS TO CONTAINER WASHER MACHINE WITHIN 3 WEEKS OF PROCEDURE, PREP INFO WILL NEED TO BE SENT VIA [employer] OR PICKED UP IN OFFICE OND WHEEL MOLDER documented in this encounter Plan of Treatment Upcoming Encounters Date Type Department Care Team (Late st Contact Info) Description 11/24/2024 1:00 PM DIAMOND WHEEL MOLDER Procedure Surgical Procedure Visit [phone] Titus Vieyra MD [address] [place] [address] [address] [place] [address] documented as of this encounter Visit Diagnoses Not on filedocumented in this encounter Additional Health Concerns Assessment Noted Time A fall risk assessment has been complete d for the patient 04/26/2014 7:59 AM CDT documented as of this encounter Care Teams Telemetry Monitor Relationship Specialty Start Date End Date Jeison Orozco MD PCP - General 12/25/01 08/12/23 documented as of this encounter
--- OUTSIDE RECORDS SUMMARY | 2024-11-07 07:01 | XMS_ITS | Encounter Summary ---
Author Organization [facility] Address [address] [place] [address] Care Team Providers Care Railcar Switchman Name Role Phone Jeison Orozco MD Primary Care Provider Unav ailable Reason for Visit * Reason Onset Date Comments Refill Request 05/05/2018 Ambien Encounter Details Date Type Department Care Team (Late st Contact Info) Description 05/05/2018 Refill Internal Medicine - [facility] [address] [place], [place] [id number] Jeison Orozco MD Refill Request (Ambien) Social History Tobacco Use Types Packs/Day Years [...] as of this encounter Progress Notes * Mercy Trent MA - 05/08/2018 2:27 PM CDT This was not phoned in. I phone in Rx. Pt notified. Disp Refills Start End Zolpidem Tartrate 5 MG Oral Tab 14 tablet 0 05/05/2018 06/04/2018 Sig - Route: Take 1 tablet (5 mg total) by mouth nightly. - Oral Class: Phone in * Sonia Winston RN - 05/06/2018 12:38 PM CDT Addressed by provider. Chart reviewed. No additional CNT/nursing action required. * Sonia Winston RN - 05/05/2018 1:23 PM CDT Pt called requesting refill of Ambien Reports she did not like the Xanex that was prescribed to help her sleep after losing her son 2 weeks ago States she had some Ambien left from years ago and took that States it has helped her sleep States she is leaving for a trip Friday and wants to have some for travel Medication(s) to Refill: Pending Prescriptions Disp Refills Zolpidem Tartrate 5 MG Oral Tab 14 tablet 0 Sig: Take 1 tablet (5 mg total) by mouth nightly. Reason for Medication Refill being sent to Provider / Reason Protocol Failed: [] 90 day refill has already been granted [] Blood Pressure out of range [] Labs Abnormal [] Medication not previously prescribed by Provider [x] Non-Protocol Medication [] Prescription needs to be printed at site and faxed to pharmacy [] Controlled Substance - needs to be printed at the site, site to notify patient when ready Last Time Medication was Filled: 02/25/2011 per med list; pt reports the bottle she has is from 10/2014 Last Office Visit with PCP: 04/21/2015 When Patient was Due Back to the Office: not stated (from when PCP last addressed condition) Future Appointments: No future appointments. Last Blood Pressures: BP Readings from Last 2 Encounters: 10/08/17 : 112/72 08/02/17 : 110/70 Recent Labs: Lab Results Component Value Date GLU 92 04/21/2015 BUN 12 04/21/2015 CREATSERUM 0.68 04/21/2015 CA 9.3 04/21/2015 ALKPHO 53 04/21/2015 AST 20 04/21/2015 ALT 28 04/21/2015 BILT 0.51 04/21/2015 TP 7.5 04/21/2015 ALB 4.4 04/21/2015 AGRATIO 1.8 07/25/2011 NA 145 04/21/2015 K 5.1 04/21/2015 CL 104 04/21/2015 CO2 28 04/21/2015 documented in this encounter Plan of Treatment Upcoming Encounters Date Type Department Care Team (Late st Contact Info) Description 11/24/2024 1:00 PM LIGHTING ENGINEER Procedure Surgical Procedure Visit [phone] Titus Vieyra MD [address] [place] [address] documented as of this encounter Visit Diagnoses Not on filedocumented in this encounter Additional Health Concerns Assessment Noted Time A fall risk assessment has been complete d for the patient 04/26/2014 7:59 AM CDT documented as of this encounter Care Teams Railcar Switchman Relationship Specialty Start Date End Date Jeison Orozco MD PCP - General 12/25/01 08/12/23 documented as of this encounter
--- OUTSIDE RECORDS SUMMARY | 2024-11-07 07:01 | XMS_ITS | Encounter Summary ---
Author Organization [facility] Address [address] [place] [address] Care Team Providers Care Lead Designer Name Role Phone Jeison Orozco MD Primary Care Provider Unav ailable Reason for Visit * Reason Comments Cough Nasal Congestion Sinus Problem x1 week Encounter Details Date Type Department Care Team (Late st Contact Info) Description 10/06/2019 9:45 AM DRAFTER PLUMBING Office Visit Internal Medicine - [facility] [address] [facility] [address] [place] [address] Marie Doran MD Bronchitis (Primary Dx); Acute non-recurrent frontal sinusitis Social History Tobacco Use Types Packs/Day Years [...] Sign Reading Time Taken Comments Blood Pressure 124/80 10/06/2019 9:44 AM DRAFTER PLUMBING Pulse 78 10/06/2019 9:44 AM DRAFTER PLUMBING Temperature 36.4 ??C (97.6 ??F) 10/06/2019 9 :44 AM DRAFTER PLUMBING Respiratory Rate - - Oxygen Saturation 99% 10/06/2019 9:4 4 AM DRAFTER PLUMBING Inhaled Oxygen Concentration - - Weight 68.5 kg (151 lb) 10/06/2019 9:44 AM DRAFTER PLUMBING pt verbalized weight Height - - Body Mass Index 24.37 12/31/2018 8:10 AM DRAFTER PLUMBING documented in this encounter Functional Status Functional Status Response Date of Assess ment Hearing Problems? No 12/28/2018 Vision Problems? No 12/28/2018 Difficulty walking? No 12/28/2018 Difficulty dressing or bathing? No 12/28/2018 Problems with daily activities? No 12/28/2018 Cognitive Status Response Date of Assessm ent Memory Problems? No 12/28/2018 documented as of this encounter Progress Notes * Marie Doran MD - 10/06/2019 9:45 AM CST Tonya Costello is a 58 year old female who presents for upper respiratory symptoms for 6 days. Patient reports cough is keeping pt up at night. Started with sore throat, nasal congestion, PRITCHARD, ear pressure, low grade fever, sinus pressure pain,green secretions, fatigue, on and off sob. Taking mucinex d with minimal relief. Current Outpatient Medications Medication Sig Dispense Refill ??? guaiFENesin-codeine (CHERATUSSIN AC) 100-10 MG/5ML Oral Solution Take 10 mL by mouth 3 (three) times daily as needed for cough. 200 mL 0 ??? Fluticasone Propionate 50 MCG/ACT Nasal Suspension 2 sprays by Each Nare route daily for 1 day.1 Bottle 0 ??? Pseudoephedrine-guaiFENesin ER (MUCINEX D) 60-600 MG Oral Tablet 12 Hr Take 1 tablet by mouth every 12 (twelve) hours. 28 tablet 0 ??? Nutritional Supplements (JUICE PLUS FIBRE OR) Take by mouth. ??? [place] 3-6-9 Fatty Acids (OMEGA 3-6-9 COMPLEX OR) Take by mouth. ??? Cholecalciferol (VITAMIN D) 1000 units Oral Tab Take by mouth. ??? B Rainwox-W-Osnks Acid (HM VITAMIN B COMPLEX/VITAMIN C) Oral Tab Take by mouth. ??? TURMERIC OR Take by mouth. ??? Probiotic Product (PROBIOTIC DAILY OR) Take by mouth. Past Medical History: Diagnosis Date ??? AF (atrial fibrillation) (HCC) 06/21/2013 ??? Arrhythmia PAF, ablation 03/2014 ??? Tinnitus x years (had seen ENT) Social History Socioeconomic History Marital status: Spouse name: Not on file Number of children: Not on file Years of education: Not on file Highest education level: Not on file Occupational History Not on file Social Needs Financial resource strain: Not on file Food insecurity: Worry: Not on file Inability: Not on file Transportation needs: Medical: Not on file Non-medical: Not on file Tobacco Use Smoking status: Former Smoker Years: 10.00 Smokeless tobacco: Never Used Tobacco comment: quit 26 yrs ago Substance and Sexual Activity Alcohol use: Yes Comment: socially, 7 drinks/week Drug use: No Sexual activity: Never Lifestyle Physical activity: Days per week: Not on file Minutes per session: Not on file Stress: Not on file Relationships Social connections: Talks on phone: Not on file Gets together: Not on file Attends amish service: Not on file Active member of club or organization: Not on file Attends meetings of clubs or organizations: Not on file Relationship status: Not on file Intimate partner violence: Fear of current or ex partner: Not on file Emotionally abused: Not on file Physically abused: Not on file Forced sexual activity: Not on file Other Topics Concerns: Not on file Social History Narrative Not on file Penicillins RASH REVIEW OF SYSTEMS: Review of Systems Constitutional: Positive for malaise/fatigue. Respiratory: Negative for wheezing. Cardiovascular: Negative for chest pain and leg swelling. Gastrointestinal: Negative for abdominal pain, diarrhea, nausea and vomiting. Genitourinary: Negative for dysuria, frequency and hematuria. Musculoskeletal: Negative for myalgias. Neurological: Positive for headaches. Negative for dizziness. EXAM: BP 124/80 (BP Location: Right arm, Patient Position: Sitting, Cuff Size: adult) Pulse 78 Temp 97.6 ??F (36.4 ??C) (Oral) Wt 151 lb SpO2 99% BMI 24.37 kg/m?? GENERAL: well developed, well nourished,in no apparent distress EYES: conjunctiva are clear HEENT: atraumatic, normocephalic,nasal mucosa erythematous, edematous, TM intact, no sinus tenderness, erythematous pharynx NECK: supple,no adenopathy LUNGS: bilateral air entry, bronchial BS bilaterally CARDIO: RRR without murmur ABDOMEN, soft, NT, ND ASSESSMENT AND PLAN: Diagnoses and all orders for this visit: Bronchitis - guaiFENesin-codeine (CHERATUSSIN AC) 100-10 MG/5ML Oral Solution; Take 10 mL by mouth 3 (three) times daily as needed for cough. Acute non-recurrent frontal sinusitis - Fluticasone Propionate 50 MCG/ACT Nasal Suspension; 2 sprays by Each Nare route daily for 1 day. - Pseudoephedrine-guaiFENesin ER (MUCINEX D) 60-600 MG Oral Tablet 12 Hr; Take 1 tablet by mouth every 12 (twelve) hours. likely viral etiology, supportive management PLAN: OTC decongestants, throat lozenges and tylenol. Cough suppressant, nasal steroid, rest, fluids, humidifier The patient indicates understanding of these issues and agrees to the plan. The patient is asked to return if sx's persist or worsen. TER PLUMBING documented in this encounter Plan of Treatment Upcoming Encounters Date Type Department Care Team (Late st Contact Info) Description 11/24/2024 1:00 PM DRAFTER PLUMBING Procedure Surgical Procedure Visit [phone] Titus Vieyra MD [address] [facility] [address] [place] [address] Scheduled Orders Name Type Priority Associated Diagnoses Orde r Schedule OFFICE/OUTPT VISIT,EST,LEVL IV PROCEDURES Routine Bronchitis Acute non-recurrent frontal sinusitis Ordered: 10/06/2019 documented as of this encounter Visit Diagnoses Diagnosis Bronchitis- Primary Bronchitis, not specified as acute or chronic Acute non-recurrent frontal sinusitis documented in this encounter Additional Health Concerns Assessment Noted Time A fall risk assessment has been complete d for the patient 04/26/2014 7:59 AM CDT documented as of this encounter Care Teams Lead Designer Relationship Specialty Start Date End Date Jeison Orozco MD PCP - General 12/25/01 08/12/23 documented as of this encounter
--- OUTSIDE RECORDS SUMMARY | 2024-11-07 07:01 | XMS_ITS | Encounter Summary ---
Author Organization [facility] Address [address] [place] [address] Care Team Providers Care Triage Specialist Name Role Phone Jeison Orozco MD Primary Care Provider Unav ailable Reason for Visit * Reason Comments Derm Problem Encounter Details Date Type Department Care Team (Late st Contact Info) Description 11/01/2021 9:30 AM SUPERVISOR [employer] Office Visit Dermatology - [facility] [address] [place] [address] Olinda Mcmanus PA-C [address] [address] [address] [place], [place] [id number] Inflamed seborrheic keratosis (Primary Dx); Epidermal cyst Social History Tobacco [...] Progress Notes * Olinda Mcmanus PA-C - 11/01/2021 9:30 AM CST HPI: Tonya Costello is a 60 year old female. Patient presents with: Derm Problem History: Pt presents for spots to be checked on face, chest and back of neck. Pt has had for months. Pt states areas are dry and want cryoed if possible. Personal HX of Skin Cancer: No Personal HX AK's: No Personal HX of Malignant Melanoma: No Family HX of Skin Cancer / Malignant Melanoma: No Other history: No further skin c/o Last Office Visit: 04/14/20 PHYSICAL EXAM: Weight: 153 lbs Height: 5'6 RR: 14 Skin exam performed as follows: Type 2 skin. Mood appropriate Alert and Oriented X 3. Well developed, well nourished in no distress. Mid chest, right and left cheek checked and left upper back checked 1. Inflamed, stucco plaques x 1 on right mid chest, x 1 on right lateral cheek and x 1 on left lateral cheek. 2. Lt upper back: 0.4cm subcutaneous nodule, freely mobile. Non-inflamed. ASSESSMENT & PLAN: 1. Inflamed Seborrheic Keratoses: Advised as inflamed on removal with cryosurgery. Cryosurgery performed to a total of 3 lesions in 2 freeze/thaw cycles. Counseled on post-care and blistering. Advised on good sunscreen protection. Post-care instruction sheet given. May take 4 weeks for lesions to resolve. Advised may need more than one treatment. Advised to f/u if not resolved after 4 weeks. Pt understands. 2. Epidermal cyst: Pt advised on diagnosis as well as tx options of watchful waiting vs full excision. Discussed full excision procedure, suture placement and down time as well as scarring. Pt electsto monitor. PATIENT EDUCATION: Skin care reviewed. Sun avoidance, protection and SSE reviewed. Questions answered, Risks/Benefits alternatives discussed w/ patient. Scar, infection, bleeding, pain purpura, recurrence. Pt understands F/U prn Scribed by: Olinda Mcmanus PA-C [employer] documented in this encounter Plan of Treatment Upcoming Encounters Date Type Department Care Team (Late st Contact Info) Description 11/24/2024 1:00 PM [employer] Procedure Surgical Procedure Visit [phone] Titus Vieyra MD [address] [place] [address] [address] [place] [address] Scheduled Orders Name Type Priority Associated Diagnoses Orde r Schedule OFFICE/OUTPT VISIT,EST,LEVL II PROCEDURES Routine Epidermal cyst Ordered: 11/01/2021 DESTRUCTION BENIGN LESIONS, OTHER THAN SKIN PROCEDURES Routine Inflamed seborrheic keratosis Ordered: 11/01/2021 documented as of this encounter Visit Diagnoses Diagnosis Inflamed seborrheic keratosis- Primary Epidermal cyst Sebaceous cyst documented in this encounter Additional Health Concerns Assessment Noted Time A fall risk assessment has been complete d for the patient 04/26/2014 7:59 AM CDT documented as of this encounter Care Teams Triage Specialist Relationship Specialty Start Date End Date Jeison Orozco MD PCP - General 12/25/01 08/12/23 documented as of this encounter
--- OUTSIDE RECORDS SUMMARY | 2024-11-07 07:01 | XMS_ITS | Encounter Summary ---
Author Organization [facility] Address [address] [place] [address] Care Team Providers Care Hide Trimmer Name Role Phone Jeison Orozco MD Primary Care Provider Unav ailable Encounter Details Date Type Department Care Team (Latest Contact Info) Description 01/15/2019 8:00 AM CDT Ancillary Procedure Radiology - 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 Procedure Surgical Procedure Visit [phone] Titus Vieyra MD [address] [place] [address] [address] [place] [address] documented as of this encounter Procedures Procedure Name Priority Date/Time Associated Diagnosis Comments YASMIN SCREEN MAMMOGRAM, DIGITAL (TQK=[id number]) Routine 01/15/2019 8:02 AM CDT Encounter for screening mammogram for malignant neoplasm of breast documented in this encounter Results * YASMIN SCREEN MAMMOGRAM, DIGITAL (RNL=[id number]) (01/15/2019 8:02 AM CDT) Anatomical Region Laterality Modality Breast Bilateral Mammography 01/19/2019 8:52 AM CDT Narrative 01/19/2019 8:53 AM CDT DATE OF SERVICE: 01.15.2019 BILATERAL SCREENING MAMMOGRAM WITH CAD WITH TOMOSYNTHESIS CLINICAL INDICATION: ??Screening mammogram on a 58 years old woman. COMPARISON: ??12/18/2016, 11/17/2015, 11/15/2014, 10/25/2013 TECHNIQUE: ?? Bilateral screening digital mammographic views with tomosynthesis. Images were checked with the [employer] CAD system. FINDINGS: ?The breasts demonstrate scattered [...] Espinosa M.D. Jeison Orozco MD [facility] documented in this encounter Visit Diagnoses Diagnosis Encounter for screening mammogram for malignant neoplasm of breast Other screening mammogram documented in this encounter Additional Health Concerns Assessment Noted Time A fall risk assessment has been complete d for the patient 04/26/2014 7:59 AM CDT documented as of this encounter Care Teams Hide Trimmer Relationship Specialty Start Date End Date Jeison Orozco MD PCP - General 12/25/01 08/12/23 documented as of this encounter
--- OUTSIDE RECORDS SUMMARY | 2024-11-07 07:01 | XMS_ITS | Encounter Summary ---
Author Organization [facility] Address [address] [place] [address] Care Team Providers Care Shipyard Supervisor Name Role Phone Jeison Orozco MD Primary Care Provider Unav ailable Reason for Visit * Reason Onset Date Comments Medication Request 12/07/2018 Encounter Details Date Type Department Care Team (Late st Contact Info) Description 12/07/2018 Telephone Internal Medicine - [facility] [address] [facility] [address] [place] [address] Jeison Orozco MD Medication Request Social History Tobacco Use Types Packs/Day [...] as of this encounter Progress Notes * Chen Roblero - 12/08/2018 9:46 AM CST Pt informed. Patient verbalized understanding Nothing further needed from MD or nurse. Closing encounter. ABILITY SPECIALIST * Ashkan Orozco - 12/07/2018 12:47 PM CST [facility] ABILITY SPECIALIST * Chen Roblero - 12/07/2018 11:05 AM CST Going to [place] next week. Has experienced PRITCHARD, SOB, gassiness, and body aches because of the altitude. Has heard of Diamox from friends. Wonders if you can prescribe. MD please advise. LUCILLE: 04/21/2015- CPX. ABILITY SPECIALIST documented in this encounter Plan of Treatment Upcoming Encounters Date Type Department Care Team (Late st Contact Info) Description 11/24/2024 1:00 PM RELIABILITY SPECIALIST Procedure Surgical Procedure Visit [phone] Titus Vieyra MD [address] [facility] [address] [place] [address] documented as of this encounter Visit Diagnoses Not on filedocumented in this encounter Additional Health Concerns Assessment Noted Time A fall risk assessment has been complete d for the patient 04/26/2014 7:59 AM CDT documented as of this encounter Care Teams Shipyard Supervisor Relationship Specialty Start Date End Date Jeison Orozco MD PCP - General 12/25/01 08/12/23 documented as of this encounter
--- OUTSIDE RECORDS SUMMARY | 2024-11-07 07:01 | XMS_ITS | Encounter Summary ---
Author Organization [facility] Address [address] [place] [address] Care Team Providers Care Drafter Detail Name Role Phone Jeison Orozco MD Primary Care Provider Unav ailable Reason for Referral * E/M Services (Routine) - Closed Specialty Diagnoses / Procedures Referred By Delmi zee Referred To Contact Gastroenterology Diagnoses Special screening for malignant neoplasms, colon Jeison Orozco MD [address] [facility] [address] [place] [address] Referral ID Status Reason Start Date Expiration Date Visits Re quested Visits Authorized [id number] Closed 12/28/2018 12/28/2019 6 6 Scheduling Instructions This department sees patients 18 years and older. If your appointment has not been made for you during today's visit, please refer to the scheduling instructions below. Your physician has referred you to a Sprinkler Fitter Helper affiliated with [facility] or for a Gastroenterology test. To schedule your appointment, [place]: [address], [address], [place] [address] [place]: [address] [facility], [address], [address], [place] [address] [place]: [address] [place] [address] [place]: [address] [place] [address] [facility]): [address], [address], [place] [address] [place]: [address] [facility], [address], [place] [address] [place]: [address] [place] [address] [place]: [address] [place] [address] Phone: [place]: [address] [facility] [place] [address] [place]: [address] [facility], [address], [place] [address] [facility]): [address], [address], [place] [address] [place]: [address], [facility] [address], [place] [address] [place]: [address] [facility], [facility] [address], [place] [address] [facility]): [address] , [address], [place] [address] [place]: [address] [facility], [address], [place] [address] [place]: [address], [place] [address] [place] [address] [place] [address] For more information about [facility] physicians and locations, visit: [email or web address] In order to insure proper patient identification, [...] office or the Utilization Management Department at [phone], seventy-two (72) hours after the order is placed. Referrals can not be entered retrospectively. IF YOU HAVE PPO INSURANCE COVERAGE If your medical insurance is a PPO, it is the patient's responsibility to confirm that any provider, vendor and/or facility outside of [facility] is in your network. Although your PPO insurance may not require referrals, there are certain procedures (MRI, Nuclear Stress Test, Surgery, etc.) that may require an authorization from your insurance company. As long as the service is being performed at [facility], the [facility] UM staff will obtain the necessary authorization on your behalf. IF YOU HAVE HMO INSURANCE COVERAGE Your insurance requires a referral from your Primary Care Physician. [facility] will obtain authorization from your insurance company for services ordered by your [facility] PCP or [facility] specialist. A referral is not a guarantee of benefit, and we highly recommend that you call your insurance company to verify your coverage GER PLACEMENT Reason for Visit * Reason Comments CPX Encounter Details Date Type Department Care Team (Latest Contact Info) Description 12/28/2018 10:30 AM MANAGER PLACEMENT Office Visit Internal Medicine - [address] [place] [address] Jeison Orozco MD Routine general medical examination at a health care facility (Primary Dx); Paroxysmal atrial fibrillation (HCC); Osteoarthritis of cervical spine, unspecified spinal osteoarthritis complication status; Screening for blood disease; Screening for metabolic disorder; Screening for thyroid disorder; Screening for diabetes mellitus; Screening for lipid disorders; Special screening for malignant neoplasms, colon; Other screening mammogram Social History Tobacco Use Types Packs/Day Years [...] Sign Reading Time Taken Comments Blood Pressure 116/66 12/28/2018 10:31 AM MANAGER PLACEMENT Pulse 63 12/28/2018 10:31 AM MANAGER PLACEMENT Temperature 36.4 ??C (97.6 ??F) 12/28/2018 10:[address] Respiratory Rate - - Oxygen Saturation 96% 12/28/2018 10:31 AM MANAGER PLACEMENT Inhaled Oxygen Concentration - - Weight 69.4 kg (153 lb) 12/28/2018 10:31 AM MANAGER PLACEMENT Height 167.6 cm (5' 6 ) 12/28/2018 10:31 AM MANAGER PLACEMENT Body Mass Index 24.69 12/28/2018 10:31 AM MANAGER PLACEMENT documented in this encounter Functional Status Functional Status Response Date of Assess ment Hearing Problems? No 12/28/2018 Vision Problems? No 12/28/2018 Difficulty walking? No 12/28/2018 Difficulty dressing or bathing? No 12/28/2018 Problems with daily activities? No 12/28/2018 Cognitive Status Response Date of Assessm ent Memory Problems? No 12/28/2018 documented as of this encounter Progress Notes * Ashkan Orozco - 12/28/2018 10:30 AM CST VISIT NOTE DATE OF VISIT: 12/28/2018 [facility] INTERNAL MEDICINE HISTORY OF PRESENT ILLNESS: The patient returns for annual assessment. She is due for mammogram andcolonoscopy and we will check annual labs. She sprained her ankle this past year, but it seems to be improving. She is careful about activity modification. SOCIAL HISTORY: She has no tobacco or alcohol abuse. FAMILY HISTORY: She has a family history of colon polyps. ALLERGIES: PENICILLIN ALLERGY. REVIEW OF SYSTEMS: A 12-point review of systems outside of the above is negative. PHYSICAL EXAMINATION: Extraocular movements are intact. Hearing is intact. Neck: Supple. No adenopathy or thyromegaly palpable. Carotids are brisk. Lungs: Clear. Heart: Normal S1, S2. No S3 or S4. Abdomen: Soft, nontender. No guarding, rigidity. No mass. Extremities: Have no redness, heat, tenderness or edema. Gait is satisfactory. Cranial nerves are intact. Judgment, intellect, orientation are appropriate. DIAGNOSTIC IMPRESSION: 1. Paroxysmal atrial fibrillation, asymptomatic. PLAN: Report recurrence. 2. Osteoarthritis of cervical spine improved. PLAN: Report relapse. 3. History of colon polyps. PLAN: Follow up colonoscopy. 4. Screening mammogram. PLAN: Schedule mammogram. 5. Screening for metabolic disorder. PLAN: Check labs today. Cherrie Orozco MD MPM/Nuance - PT NAME: TIMOTEO COSTELLO - TD: 12/28/2018 10:54 GER PLACEMENT documented in this encounter Plan of Treatment Upcoming Encounters Date Type Department Care Team (Late st Contact Info) Description 11/24/2024 1:00 PM MANAGER PLACEMENT Procedure Surgical Procedure Visit [phone] Titus Vieyra MD [address] [place] [address] [address] [place] [address] Scheduled Referrals Name Type Priority Associated Diagnoses Orde r Schedule EVALUATE & TREAT, GASTRO (DMG) Referral Routine Special screening for malignant neoplasms, colon Ordered: 12/28/2018 documented as of this encounter Procedures Procedure Name Priority Date/Time Associated Diagnosis Comments PERIODIC PREVENTIVE MED EST PATIENT 40-64YRS Routine 12/28/2018 10:48 AM MANAGER PLACEMENT Routine general medical examination at a health care facility Paroxysmal atrial fibrillation (HCC) Osteoarthritis of cervical spine, unspecified spinal osteoarthritis complication status Screening for blood disease Screening for metabolic disorder Screening for thyroid disorder Screening for diabetes mellitus Screening for lipid disorders Special screening for malignant neoplasms, colon Other screening mammogram documented in this encounter Results * HEMOGLOBIN A1C (12/28/2018 10:49 AM MANAGER PLACEMENT) HbA1c 5.5 4.0 - 5.6 % 12/28/2018 3:21 PM MANAGER PLACEMENT [facility] Estimated Average Glucose 111 mg/dL 12/28/2018 3:21 PM MANAGER PLACEMENT [facility] Comment:eAG is the estimated average glucose calculated from Hgb A1c according to the formula recommended by the [place] [employer].eAG levels reflect the usp average glucose and may not correlate with random or fasting glucose levels since these represent specific points in time. Whole blood Venipuncture / Unknown 12/28/2018 10:49 AM MANAGER PLACEMENT 12/28/2018 10:49 AM MANAGER PLACEMENT Jeison Orozco MD LAB BLOOD ORDERABLE S [facility] [address] [phone] * (ABNORMAL) LIPID PANEL (12/28/2018 10:49 AM MANAGER PLACEMENT) Triglycerides 71.00 <=150.00 mg/dL 12/28/2018 3:34 PM MANAGER PLACEMENT [facility] Direct HDL 69(H) <=65 mg/dL 12/28/2018 3:34 PM MANAGER PLACEMENT [facility] Comment:Guidelines for high density lipoprotein (HDL) are adapted from the National Cholesterol Education Program (NCEP).Values >60 mg/dL are considered a negative risk factor for coronary heart disease (CHD) and are considered protective. Risk Factor 2.5 <5.0 12/28/2018 3:34 PM MANAGER PLACEMENT [facility] Cholesterol 171.00 <=200.00 mg/dL 12/28/2018 3:34 PM [facility] Calculated LDL 88 <=200 mg/dL 12/28/2018 3:34 PM [facility] Total Chol/HDL Ratio 2 12/28/2018 3:34 PM MANAGER PLACEMENT [facility] Calculated VLDL 14 mg/dL 9 3:34 PM MANAGER PLACEMENT [facility] Blood Venipuncture / Unknown 12/28/2018 10:49 AM MANAGER PLACEMENT 12/28/2018 10:49 AM MANAGER PLACEMENT Jeison Orozco MD LAB BLOOD ORDERABLE S [facility] [address] [phone] * TSH W REFLEX TO FREE T4 (12/28/2018 10:49 AM MANAGER PLACEMENT) Pathologist [facility] TSH 1.315 0.350 - 5.500 mIU/L 12/28/2018 6:41 PM MANAGER PLACEMENT [facility] Blood Venipuncture / Unknown 12/28/2018 10:49 AM MANAGER PLACEMENT 12/28/2018 10:49 AM MANAGER PLACEMENT Jeison Orozco MD LAB BLOOD ORDERABLE S [facility] [address] [phone] * (ABNORMAL) COMP METABOLIC PANEL (14) (12/28/2018 10:49 AM [facility]) Patient Fasting? No 12/29/19 19 3:34 PM [facility] Glucose 92 74 - 109 mg/dL 12/28/2018 3:34 PM [facility] Blood Urea Nitrogen 11.0 6.0 - 20.0 mg/dL 12/28/2018 3:34 PM [facility] Creatinine 0.63 0.50 - 0.90 mg/dL 12/28/2018 3:34 PM [facility] BUN/CREAT Ratio 17.0 10.0 - 20.0 12/28/2018 3:34 PM [facility] Sodium 141 136 - 145 mmol/L 12/28/2018 3:34 PM [facility] Potassium 5.33(H) 3.50 - 5.10 mmol/L 12/28/2018 3:34 PM [facility] Chloride 102 98 - 107 mmol/L 12/28/2018 3:34 PM [facility] Carbon Dioxide 30.6(H) 22.0 - 29.0 mmol/L 12/28/2018 3:34 PM [facility] Calcium 9.8 8.6 - 10.0 mg/dL 12/28/2018 3:34 PM [facility] Total Protein 7.4 6.4 - 8.3 g/dL 12/28/2018 3:34 PM [facility] Albumin 4.5 3.5 - 5.2 g/dL 12/28/2018 3:34 PM [facility] Bilirubin, Total 0.39 0.00 - 1.20 mg/dL 12/28/2018 3:34 PM [facility] Alkaline Phosphatase 54 46 - 118 U/L 12/28/2018 3:34 PM [facility] AST 19 0 - 32 U/L 12/28/2018 3:34 PM [facility] ALT 19 0 - 33 U/L 12/28/2018 3:34 PM MANAGER PLACEMENT [facility] GFR CKD-EPI 97.81 >=60.00 mL/min/1.7 3 m?? 12/28/2018 3:34 PM MANAGER PLACEMENT [facility] Comment: Estimated GFR units: mL/min/1.73 square meters eGFR calculated by the CKD-EPI equation. Blood Venipuncture / Unknown 12/28/2018 10:49 AM MANAGER PLACEMENT 12/28/2018 10:49 AM MANAGER PLACEMENT Jeison Orozco MD LAB BLOOD ORDERABLE S [facility] [address] [phone] documented in this encounter Visit Diagnoses Diagnosis Routine general medical examination at a health care facility- Primary Paroxysmal atrial fibrillation (HCC) Atrial fibrillation Osteoarthritis of cervical spine, unspecified spinal osteoarthritis complication status Screening for blood disease Screening for unspecified disorder of blood and blood-forming organs Screening for metabolic disorder Screening for thyroid disorder Screening for diabetes mellitus Screening for lipid disorders Special screening for malignant neoplasms, colon Other screening mammogram documented in this encounter Additional Health Concerns Assessment Noted Time A fall risk assessment has been complete d for the patient 04/26/2014 7:59 AM CDT documented as of this encounter Care Teams Drafter Detail Relationship Specialty Start Date End Date Jeison Orozco MD PCP - General 12/25/01 08/12/23 documented as of this encounter
--- OUTSIDE RECORDS SUMMARY | 2024-11-07 07:01 | XMS_ITS | Encounter Summary ---
Author Organization [facility] Address [address] [place] [address] Care Team Providers Care Field Control Inspector Name Role Phone Jeison Orozco MD Primary Care Provider Unav ailable Reason for Visit * Reason Comments Full Skin Exam Encounter Details Date Type Department Care Team (Late st Contact Info) Description 12/23/2018 8:45 AM JEWELRY APPRAISER Office Visit Dermatology - [facility] [address] [place] [address] Olinda Mcmanus PA-C [address] [facility] [place], [place] [id number] Inflamed seborrheic keratosis (Primary Dx); Intrinsic atopic dermatitis; Seborrheic keratosis; Lentigines; Nevus of back Social History Tobacco Use Types Packs/Day Years [...] as of this encounter Progress Notes * Fay Moseley - 12/23/2018 8:45 AM CST HPI: Tonya Costello is a 58 year old female. Patient presents with: Full Skin Exam History: Pt here for FSE. Pt states concerns include spot on L cheondoism. Pt states lesion is new, hard, itchy. Pt also has many other spots she would like to have frozen if possible. Pt states she has history of itchy dry skin that comes and goes on right hip. She does use CeraVe moisturizing cream which does help. Location: scalp, back, arms Condition present for: Many years Lesion(s) can be pruritic. Severity (Scale 1-mild to 10 severe): 3 Previous treatments include: None Personal HX of Skin Cancer: No Personal HX AK's: No Personal HX of Malignant Melanoma: No Family HX of Skin Cancer / Malignant Melanoma: No Other history: No further skin c/o Last Office Visit: 01/30/2018 ROS of the following were done and are negative: Constitutional, Eyes, Ears, Nose, Mouth, Throat, Cardiovascular, Respiratory, GI, Genitourinary, Musculoskeletal, Psychiatric, Endocrine, Allergic/Immunologic. PHYSICAL EXAM: Weight: 153 lbs Height: 5'6 RR: 14 Skin exam performed as follows: Type 2 skin. Mood appropriate Alert and Oriented X 3. Well developed, well nourished in no distress. General appearance: Normal Head including face: Abnormal Eyes: conjunctiva and lids: Normal Mouth: Lips, mucosa: Normal Neck: Normal Chest-breast/axillae: Normal Back: Abnormal Abdomen: Normal Cardiovascular: Exam of peripheral vascular system by observation for swelling, varicosities, edema: Normal Extremities: digits/nails (clubbing): Normal Eccrine and Apocrine glands: Normal Right upper extremity: Abnormal Left upper extremity: Abnormal Right lower extremity: Normal Left lower extremity: Normal Skin: Scalp and body hair: See below Pt deferred exam of groin, buttocks: Yes Other physical findings: 1. Inflamed, stucco plaques x 1 on left frontal hairline, x 2 on left inferior axilla, x 3 on rightaxilla, x 2 on back. 2. Nevi present on face, neck, chest, back, arms and legs with regular borders, symmetry and pigmentation. 3. Flat tracy macules present face, trunk, arms and legs. 4. Vascular erythematous macules and papules present on trunk, arms and legs. 5. Waxy, stucco plaques present on scalp, face, trunk, arms and legs. 6. Rt hip: Mild eczematous, xerotic patches. ASSESSMENT & PLAN: 1. Inflamed Seborrheic Keratoses: Advised as inflamed on removal with cryosurgery. Cryosurgery performed to a total of 8 lesions in 2 freeze/thaw cycles. Counseled on post-care and blistering. Advised on good sunscreen protection. Post-care instruction sheet given. May take 4 weeks for lesions to resolve. Advised may need more than one treatment. Advised to f/u if not resolved after 4 weeks. Pt understands. 2. Benign Nevi of face, neck, chest, back, arms and legs: Advised benign in appearance. Advised on ABCDE'S of melanoma, sunscreen use, monthly self skin examinations and yearly skin examinations. 3. Solar lentigines: Advised benign in appearance. 4. Angiomas of skin: Advised benign. 5. Seborrheic Keratoses: Advised benign. Literature given. No treatment necessary as non-inflamed. 6. Atopic dermatitis: Mild. Continue use of fragrance free products. -Begin OTC HC 1% cream followed by CeraVe cream bid until itching and redness are gone then stop the HC cream and restart prn. Advised if not helping may call for stronger topical steroid prescription such as triamcinolone cream. Pt understands. PATIENT EDUCATION: Skin care reviewed. Sun avoidance, protection and SSE reviewed. Questions answered, Risks/Benefits alternatives discussed w/ patient. Scar, infection, bleeding, pain purpura, recurrence. Pt understands F/U prn Scribed By: Olinda Mcmanus PA-C ID#[id number] LRY APPRAISER documented in this encounter Plan of Treatment Upcoming Encounters Date Type Department Care Team (Late st Contact Info) Description 11/24/2024 1:00 PM JEWELRY APPRAISER Procedure Surgical Procedure Visit [phone] Titus Vieyra MD [address] [place] [address] [address] [place] [address] Scheduled Orders Name Type Priority Associated Diagnoses Orde r Schedule DESTRUCTION BENIGN LESIONS, OTHER THAN SKIN PROCEDURES Routine Inflamed seborrheic keratosis Ordered: 12/23/2018 OFFICE/OUTPT VISIT,EST,LEVL IV PROCEDURES Routine Intrinsic atopic dermatitis Seborrheic keratosis Lentigines Nevus of back Ordered: 12/23/2018 documented as of this encounter Visit Diagnoses Diagnosis Inflamed seborrheic keratosis- Primary Intrinsic atopic dermatitis Seborrheic keratosis Other seborrheic keratosis Lentigines Other dyschromia Nevus of back Benign neoplasm of skin of trunk, except scrotum documented in this encounter Additional Health Concerns Assessment Noted Time A fall risk assessment has been complete d for the patient 04/26/2014 7:59 AM CDT documented as of this encounter Care Teams Field Control Inspector Relationship Specialty Start Date End Date Jeison Orozco MD PCP - General 12/25/01 08/12/23 documented as of this encounter
--- OUTSIDE RECORDS SUMMARY | 2024-11-07 07:01 | XMS_ITS | Encounter Summary ---
Author Organization [facility] Address [address] [place] [address] Care Team Providers Care Welding Machine Feeder Name Role Phone Jeison Orozco MD Primary Care Provider Unav ailable Reason for Visit * Reason Comments Sinus Problem green nasal discharg e, and sputum, nasal congesiton, PND, cough x 2 wks Encounter Details Date Type Department Care Team (Late st Contact Info) Description 08/02/2017 1:10 PM CDT Office Visit Express Care - [facility] [address] [facility] [address] [place] [address] Adult, [place] After [place] Acute non-recurrent frontal sinusitis (Primary Dx) Social History Tobacco Use Types [...] Sign Reading Time Taken Comments Blood Pressure 110/70 08/02/2017 1:28 PM CDT Pulse 80 08/02/2017 1:28 PM CDT Temperature 36.9 ??C (98.4 ??F) 08/02/2017 1:28 PM CD T Respiratory Rate 20 08/02/2017 1:28 PM CDT Oxygen Saturation - - Inhaled Oxygen Concentration [...] as of this encounter Progress Notes * Tyree Pierce MD - 08/02/2017 1:10 PM CDT Patient presents with: Sinus Problem: green nasal discharge, and sputum, nasal congesiton, PND, cough x 2 wks Tonya Costello is a 56 year old female. HPI: Chief Complaint: Sinus Problem (green nasal discharge, and sputum, nasal congesiton, PND, cough x 2wks ) Two weeks of sinus congestion with cough. Flying in one week Discussed Current Outpatient Prescriptions: Nutritional Supplements (JUICE PLUS FIBRE OR) Take by mouth daily. Disp: Rfl: Estradiol (VAGIFEM) [address] vag[address]. Use twice weekly Disp: Rfl: Past Medical History: Diagnosis Date ??? AF (atrial fibrillation) (HCC) 06/21/2013 ??? Arrhythmia PAF, ablation 03/2014 ??? Tinnitus x years (had seen ENT) Past Surgical History: 05/04/15: COLONOSCOPY Comment: Diverticulosis. [...] tattoo site at 40 cm Social History: Smoking status: Former Smoker Packs/day: 0.00 Years: 10.00 Smokeless tobacco: Never Used Comment: quit 26 yrs ago Alcohol use: Yes Comment: socially, 7 drinks/week REVIEW OF SYSTEMS: No fever chills or dyspnea GENERAL HEALTH: feels well otherwise SKIN: denies any unusual skin lesions or rashes RESPIRATORY: denies shortness of breath with exertion CARDIOVASCULAR: denies chest pain on exertion GI: denies abdominal pain and denies heartburn NEURO: denies headaches EXAM: BP 110/70 Pulse 80 Temp 98.4 ??F (36.9 ??C) (Oral) Resp 20 GENERAL: well developed, well nourished,in no apparent distress SKIN: no rashes,no suspicious lesions HEENT: atraumatic, normocephalic,ears and throat are clear NECK: supple,no adenopathy,no bruits LUNGS: clear to auscultation CARDIO: RRR without murmur GI: good BS's,no masses, HSM or tenderness EXTREMITIES: no cyanosis, clubbing or edema ASSESSMENT AND PLAN: Sinusitis; Levaquin; Mucinex D; Cheratussin AC Diagnoses and all orders for this visit: Acute non-recurrent frontal sinusitis - OFFICE/OUTPT VISIT,EST,LEVL III Other orders - levofloxacin (LEVAQUIN) 500 MG Oral Tab; Take 1 tablet (500 mg total) by mouth daily. - guaiFENesin-codeine (CHERATUSSIN AC) 100-10 MG/5ML Oral Solution; Take 5 mL by mouth every 6 (six) hours as needed. - guaiFENesin-codeine (CHERATUSSIN AC) 100-10 MG/5ML Oral Solution; Take 5 mL by mouth every 6 (six) hours as needed. The patient indicates understanding of these issues and agrees to the plan. The patient is asked to return to see PCP as needed. documented in this encounter Plan of Treatment Upcoming Encounters Date Type Department Care Team (Late st Contact Info) Description 11/24/2024 1:00 PM PRODUCTION FINISHER Procedure Surgical Procedure Visit [phone] Titus Vieyra MD [address] [place] [address] [address] [place] [address] Scheduled Orders Name Type Priority Associated Diagnoses Orde r Schedule OFFICE/OUTPT VISIT,EST,LEVL III PROCEDURES Routine Acute non-recurrent frontal sinusitis Ordered: 08/02/2017 documented as of this encounter Visit Diagnoses Diagnosis Acute non-recurrent frontal sinusitis- Primary documented in this encounter Additional Health Concerns Assessment Noted Time A fall risk assessment has been complete d for the patient 04/26/2014 7:59 AM CDT documented as of this encounter Care Teams Welding Machine Feeder Relationship Specialty Start Date End Date Jeison Orozco MD PCP - General 12/25/01 08/12/23 documented as of this encounter
--- OUTSIDE RECORDS SUMMARY | 2024-11-07 07:01 | XMS_ITS | Encounter Summary ---
Author Organization [facility] Address [address] [place] [address] Care Team Providers Care Assemblies And Installations Inspector Name Role Phone Jeison Orozco MD Primary Care Provider Unav ailable Encounter Details Date Type Department Care Team (Late st Contact Info) Description 12/29/2018 Telephone Internal Medicine - [facility] [address] [facility] [place], [place] [id number] Jeison Orozco MD Social History Tobacco Use Types Packs/Day [...] as of this encounter Progress Notes * Christine Snow MA - 12/29/2018 11:11 AM CST RELEASED TO [facility] RIAL SCHEDULER * Ashkan Orozco - 12/29/2018 8:03 AM CST Release to my chart RIAL SCHEDULER documented in this encounter Plan of Treatment Upcoming Encounters Date Type Department Care Team (Late st Contact Info) Description 11/24/2024 1:00 PM MATERIAL SCHEDULER Procedure Surgical Procedure Visit [phone] Titus Vieyra MD [address] [place] [address] [address] [place] [address] documented as of this encounter Visit Diagnoses Not on filedocumented in this encounter Additional Health Concerns Assessment Noted Time A fall risk assessment has been complete d for the patient 04/26/2014 7:59 AM CDT documented as of this encounter Care Teams Assemblies And Installations Inspector Relationship Specialty Start Date End Date Jeison Orozco MD PCP - General 12/25/01 08/12/23 documented as of this encounter
--- OUTSIDE RECORDS SUMMARY | 2024-11-07 07:01 | XMS_ITS | Encounter Summary ---
Author Organization [facility] Address [address] [place] [address] Care Team Providers Care Gallery Or Museum Guide Name Role Phone Jeison Orozco MD Primary Care Provider Unav ailable Encounter Details Date Type Department Care Team (Late Contact Info) Description 04/25/2017 E-Visit Internal Medicine - [facility] [address] [facility] [address] [place] [address] Jeison Orozco MD Dysuria (Primary Dx) Social History Tobacco Use Types [...] st Contact Info) Description 11/24/2024 1:00 PM QA SOFTWARE TESTER Procedure Surgical Procedure Visit [phone] Titus Vieyra MD [address] [facility] [address] [place] [address] Scheduled Orders Name Type Priority Associated Diagnoses Orde r Schedule ONLINE E/M BY PHYS PROCEDURES Routine Dysuria Ordered: 04/25/2017 documented as of this encounter Visit Diagnoses Diagnosis Dysuria- Primary documented in this encounter Additional Health Concerns Assessment Noted Time A fall risk assessment has been complete d for the patient 04/26/2014 7:59 AM CDT documented as of this encounter Care Teams Gallery Or Museum Guide Relationship Specialty Start Date End Date Jeison Orozco MD PCP - General 12/25/01 08/12/23 documented as of this encounter
--- OUTSIDE RECORDS SUMMARY | 2024-11-07 07:01 | XMS_ITS | Encounter Summary ---
Author Organization [facility] Address [address] [place] [address] Care Team Providers Care Newspaper Press Operator Apprentice Name Role Phone Jeison Orozco MD Primary Care Provider Unav ailable Reason for Referral * Tests (Routine) - Closed Specialty Diagnoses / Procedures Referred By Delmi zee Referred To Contact Cardiology Diagnoses Paroxysmal atrial fibrillation (HCC) Palpitations Procedures CARD ECHO 2D DOPPLER ([id number]) TTE W/DOPPLER, COMPLETE Jl Robles MD [address] [place] [address] [facility] [address] [place] [address] Referral ID Status Reason Start Date Expiration Date Visits Re quested Visits Authorized [id number] Closed 03/04/2022 02/04/2023 1 1 Reason for Visit * Reason Comments Consult New Hx of Ablation i n 2013, Establish Cardiology * E/M Services (Routine) - Closed Specialty Diagnoses / Procedures Referred By Delmi zee Referred To Contact Cardiology Diagnoses Atrial fibrillation, unspecified type (HCC) Qian Mathur MD [address] [facility] [address] [place] [address] Referral ID Status Reason Start Date Expiration Date Visits Re quested Visits Authorized [id number] Closed 12/17/2021 12/17/2022 6 6 Encounter Details Date Type Department Care Team (Late st Contact Info) Description 02/04/2022 1:20 PM CDT Office Visit Cardiology - [address], [place] [address] [place] [address] Jl Robles MD Paroxysmal atrial fibrillation (HCC) (Primary Dx); Palpitations Social History Tobacco Use Types Packs/Day [...] suspected to have Coronavirus/COVID-19? No / Unsure 01/15/2022 1:23 PM CDT documented as of this encounter Last Filed Vital Signs Vital Sign Reading Time Taken Comments Blood Pressure 110/62 02/04/2022 1:32 PM CDT Pulse 61 02/04/2022 1:32 PM CDT Temperature - - Respiratory Rate - - Oxygen Saturation 99% 02/04/2022 1:32 PM CDT Inhaled Oxygen Concentration - - Weight 68 kg (150 lb) 02/04/2022 1:32 PM CDT Height 167.6 cm (5' 6 ) 02/04/2022 1:32 PM CDT Body Mass Index 24.21 02/04/2022 1:32 PM CDT documented in this encounter Functional Status Functional Status Response Date of Assess ment Hearing Problems? No 12/17/2021 Vision Problems? No 12/17/2021 Difficulty walking? No 12/17/2021 Difficulty dressing or bathing? No 12/17/2021 Problems with daily activities? No 12/17/2021 Cognitive Status Response Date of Assessm ent Memory Problems? No 12/17/2021 documented as of this encounter Patient Instructions * Patient Instructions* Jl Robles MD - 02/04/2022 1:20 PM CDT Echo at [place] office Cardiac calcium score Kardia EKG yani documented in this encounter Progress Notes * Jl Robles MD - 02/04/2022 1:20 PM CDT Reason for Consultation: Atrial fibrillation Assessment/Plan: Palpitations underwent successful catheter ablation of atrial fibrillation in 2013. I recommended that she get a Kardia or apple watch to try to document her infrequent symptoms. We also discussed getting a cardiac calcium score and an echocardiogram. She will follow-up after the above. Diagnoses and all orders for this visit: Paroxysmal atrial fibrillation (HCC) - ELECTROCARDIOGRAM, COMPLETE - OFFICE CONSULTATION,LEVEL IV - CARD ECHO 2D DOPPLER ([id number]); Future - CARDIAC CALCIUM SCORE ([id number]); Future Palpitations - ELECTROCARDIOGRAM, COMPLETE - OFFICE CONSULTATION,LEVEL IV - CARD ECHO 2D DOPPLER ([id number]); Future - CARDIAC CALCIUM SCORE ([id number]); Future Patient Instructions: Patient Instructions Echo at [place] office Cardiac calcium score Kardia EKG yani Subjective: Chief Complaint: Atrial fibrillation HPI: 02/04/2022: Tonya Costello is a 61 year old female who is referred by Dr. Mathur for evaluationand management of atrial fibrillation. She underwent successful catheter ablation of atrial fibrillation in [address] Rosenberg. She has not had any symptoms like she had prior to the ablation. She does occasionally get what she describes as gurgles that lasts less than 30 seconds. These may occur every several weeks particularly if she is stressed out. No chest pain or shortness of breath. She is concerned because her 68-year-old brother while traveling in [place] Apparently he got up totake some Rolaids and then was found in the bathroom. He had had Covid the month before. No definite history of documented CAD in family members. Review of Systems: 12 point ROS is negative except as in HPI History: Past Medical History: Diagnosis Date ??? AF (atrial fibrillation) (HCC) 06/21/2013 ??? Arrhythmia PAF, ablation 03/2014 ??? STAR (obstructive sleep apnea) 01/15/22-PSG AHI-14 ??? Tinnitus x years (had seen ENT) No family history on file. Past Surgical History: Procedure Laterality Date ??? [...] polyp at tattoo site at 40 cm Family History of Premature CAD: No Social History: Social History Tobacco Use Smoking status: Former Smoker Years: 10.00 Smokeless tobacco: Never Used Tobacco comment: quit 26 yrs ago Vaping Use Vaping Use: Never used Alcohol use: Yes Comment: socially, 7 drinks/week Drug use: No Medications: Current Outpatient Medications Medication Sig Dispense [...] Take by mouth. Allergies: Penicillins RASH Objective: Exam: BP 110/62 Pulse 61 Ht 5' 6 (1.676 m) Wt 150 lb (68 kg) SpO2 99% BMI 24.21 kg/m?? * Wt Readings from Last 3 Encounters: 02/04/22 : 150 lb (68 kg) 12/17/21 : 150 lb (68 kg) 01/05/20 : 155 lb (70.3 kg) CONS: well developed, well nourished. WEIGHT:discussed. HEAD/FACE:no trauma, normocephalic. EYES:conjunctiva not injected, no xanthelasma. ENT:mucosa pink and moist. NECK:jugular venous pressure not elevated. RESP:normal rate and rhythm, clear to auscultation. GI:soft, non-tender;rectal deferred. MS:adequate gait for exercise testing. EXT:no clubbing or cyanosis. SKIN:no rashes,lesions. NEURO/PSYCH:alert and oriented. Normal affect. CV Exam: PALP:PMI not displaced; no lifts, thrills or rubs. AUSC:regular rhythm, normal S1, S2 without S3; no significant murmur. CAROTIDS:carotid pulses normal. ABD AORTA:not enlarged. FEM:femoral pulses intact. PEDAL:pedal pulses intact. EXT:no peripheral edema. Laboratory Data: Care Everywhere: Consented Labs reviewed: EKG 02/04/2022: Sinus rhythm-normal Thank you for allowing me to participate in the care of your patient. *This note was dictated, in part, using a computerized recognition system and may contain unintended errors. The blood pressure recorded is the blood pressure I used in my clinical decision. This may be based on multiple home readings, the results of ambulatory blood pressure monitoring, values obtained in the office, or some combination of all of these. documented in this encounter Plan of Treatment Upcoming Encounters Date Type Department Care Team (Late st Contact Info) Description 11/24/2024 1:00 PM CORPORATE RECRUITER Procedure Surgical Procedure Visit [phone] Titus Vieyra MD [address] [place] [address] [address] [place] [address] Scheduled Orders Name Type Priority Associated Diagnoses Orde r Schedule ELECTROCARDIOGRAM, COMPLETE ECG Routine Paroxysmal atrial fibrillation (HCC) Palpitations Ordered: 02/04/2022 OFFICE CONSULTATION,LEVEL IV PROCEDURES Routine Paroxysmal atrial fibrillation (HCC) Palpitations Ordered: 02/04/2022 CARDIAC CALCIUM SCORE ([id number]) Imaging Routine Paroxysmal atrial fibrillation (HCC) Palpitations Expected: 02/04/2022 (Approximate), Expires: 02/04/2023 documented as of this encounter Procedures Procedure Name Priority Date/Time Associated Diagnosis Comments EKG7 SCAN 02/08/2022 6:19 AM CDT documented in this encounter Results * CARD ECHO 2D DOPPLER ([id number]) (03/04/2022 3:30 PM CDT) 03/04/2022 1:30 PM CDT Narrative [facility] - 03/05/2022 4:20 PM CDT Transthoracic Echocardiogram 2D Echo with Doppler Patient: ?Tonya Costello ?Study Date: ? 03/04/2022 ? BSA: ?1.77m^2 : ?1960 (61yrs) ? Height: ? (66in) Gender: ? F ?Weight: ? (149.7lb) Ordered by: ? Jl Robles MD House Repairer: Rocio Santiago RDCS Indication: ?? Atrial fibrillation. [...] ES, 1-p A4C ?41 ?ml ? - 52 LA volume, ES, 1-p A2C ?42 ?ml ? 22 - 52 Mitral valve ?Value ?Reference Mitral E-wave peak [...] equal to 50%). Study data: ?? Location: ??[address] , [place] [address]. Conclusions Summary: 1. Left ventricle: The cavity [...] F Weight:(149.7lb) Ordered by: Jl Robles MD House Repairer: Rocio Santiago RDCS Indication: Atrial fibrillation. Blood [...] LA volume, ES, 1-p A4C 41 ml 22 - 52 LA volume, ES, 1-p A2C [...] or equal to 50%). Study data: Location: [place] [address] [address], [place] [address]. Conclusions Summary: 1. Left ventricle: The cavity [...] 03/05/2022 16:20 Jl Robles MD CARDIOGRAPHICS [facility] * EKG SCAN (02/08/2022 6:19 AM CDT) Scan Provider Interface SCAN DOCUMENTS documented in this encounter Visit Diagnoses Diagnosis Paroxysmal atrial fibrillation (HCC)- Primary Atrial fibrillation Palpitations Paroxysmal atrial fibrillation (HCC) Atrial fibrillation Palpitations documented in this encounter Additional Health Concerns Assessment Noted Time A fall risk assessment has been complete d for the patient 04/26/2014 7:59 AM CDT documented as of this encounter Care Teams Newspaper Press Operator Apprentice Relationship Specialty Start Date End Date Jeison Orozco MD PCP - General 12/25/01 08/12/23 documented as of this encounter
--- OUTSIDE RECORDS SUMMARY | 2024-11-07 07:01 | XMS_ITS | Encounter Summary ---
Author Organization [facility] Address [address] [place] [address] Care Team Providers Care Basting Marker Name Role Phone Jeison Orozco MD Primary Care Provider Unav ailable Reason for Visit * Reason Comments Ankle Injury Pt states she missed a step this am and rolled Right ankle inward Encounter Details Date Type Department Care Team (Late st Contact Info) Description 09/13/2018 12:45 PM BOBBIN CLEANING MACHINE OPERATOR Office Visit [facility] - [facility], [place] [address] [facility] [address] [place], [place] [id number] Don Ayala MD [address] [place], [place] [address] Injury, ankle, right, initial encounter (Primary Dx); First degree ankle sprain, right, initial encounter Social History Tobacco Use Types Packs/Day Years [...] Sign Reading Time Taken Comments Blood Pressure 134/77 09/13/2018 1:11 PM BOBBIN CLEANING MACHINE OPERATOR Pulse 68 09/13/2018 1:11 PM BOBBIN CLEANING MACHINE OPERATOR Temperature 37 ??C (98.6 ??F) 09/13/2018 1:11 PM BOBBIN CLEANING MACHINE OPERATOR Respiratory Rate 16 09/13/2018 1:11 PM BOBBIN CLEANING MACHINE OPERATOR Oxygen Saturation 99% 09/13/2018 1:11 PM BOBBIN CLEANING MACHINE OPERATOR Inhaled Oxygen Concentration - - Weight 68 kg (150 lb) 09/13/2018 1:11 PM BOBBIN CLEANING MACHINE OPERATOR Height 167.6 cm (5' 6 ) 09/13/2018 1:11 PM BOBBIN CLEANING MACHINE OPERATOR Body Mass Index 24.21 09/13/2018 1:11 PM BOBBIN CLEANING MACHINE OPERATOR documented in this encounter Functional Status Functional Status Response Date of Assess ment Hearing Problems? No 04/26/2014 Vision Problems? No 04/26/2014 Difficulty walking? No 04/26/2014 Difficulty dressing or bathing? No 04/26/2014 Problems with daily activities? No 04/26/2014 Cognitive Status Response Date of Assessm ent Memory Problems? No 04/26/2014 documented as of this encounter Patient Instructions * Patient Instructions* Don Ayala MD - 09/13/2018 12:45 PM BOBBIN CLEANING MACHINE OPERATOR Diagnosis : Injury, ankle, right, initial encounter (primary encounter diagnosis) First degree ankle sprain, right, initial encounter Diagnosis made at [facility] are typically made on a provisional basis. Medications Prescribed: Requested Prescriptions No prescriptions requested or ordered in this encounter Keep ankle brace on for 14 days. Use crutches as needed to avoid weight bearing for comfort. Transition to a cane as needed thereafter until pain free to walk Please follow up with your PCP or orthopedist in approximately 14 days. If your condition worsens or does not improve as expected, call [phone] ([phone]). If you are experiencing a condition that is an emergency or life-threatening, please call 911. DO NOT FLUSH unused medications down a toilet or any waste water stream. For information on proper and safe disposal of medications you are no longer taking, contact your local police station for the nearest medication disposal drop off site, or visit www.epa.[place].gov , & click on MEDICATION DISPOSAL IN CLEANING MACHINE OPERATOR documented in this encounter Progress Notes * Don Ayala MD - 09/13/2018 12:45 PM CSTAddended by: DON AYALA on: 09/13/2018 03:37 PM Modules accepted: Orders IN CLEANING MACHINE OPERATOR * Don Ayala MD - 09/13/2018 12:45 PM CST Tonya Costello is a 57 year old female.with a chief complaint of Ankle Injury (Pt states she missed a step this am and rolled Right ankle inward) . History of Present Illness: Duration: onset of injury : this am. Context (mechanism of injury): rolled R ankle due to missing a step.. Location: Right ankle. Quality of symptoms: swollen, pain Severity: 06/05 Modifying Factors: Improves with rest, worsening factor: walking. Associated symptoms: + able to weight bear. + able to ambulate. Review Of Systems: Other systems are otherwise negative. Allergy / Adverse Reaction History: Penicillins RASH Medications: No current outpatient medications on file. Past Medical History: Past Medical History: Diagnosis Date ??? AF (atrial fibrillation) (HCC) 06/21/2013 ??? Arrhythmia PAF, ablation 03/2014 ??? Tinnitus x years (had seen ENT) Social History: Social History Tobacco Use Smoking status: Former Smoker Years: 10.00 Smokeless tobacco: Never Used Tobacco comment: quit 26 yrs ago Alcohol use: Yes Comment: socially, 7 drinks/week Drug use: No otherwise negative to presenting illness. Family History: PHYSICAL EXAM: BP 134/77 (BP Location: Right arm, Patient Position: Sitting, Cuff Size: adult) Pulse 68 Temp 98.6 ??F (37 ??C) (Oral) Resp 16 Ht 5' 6 (1.676 m) Wt 150 lb (68 kg) SpO2 99% BMI 24.21 kg/m?? CONST: Vital signs reviewed. acute distress: none. non-toxic. age appropriate HEAD, EARS, NOSE, MOUTH, THROAT: normal cephalic, atraumatic. RESP: effort normal, no stridor, no retractions, no accessory muscle use, CV:peripheral edema: none. capillary refill < 2 sec. Pulses: DP normal on affected limb. MUSC/SKELETAL: exam of the ankle: no extremity deformity, extremity tenderness at lateral malleolus, no 5th metatarsal tenderness, no proximal fibula tenderness, achilles intact no tender at distal tibia-fibula junction. SKIN: warm, dry, normal color, no rash, signs of trauma: soft tissue swelling of lateral ankle. NEURO: alert & oriented, speech normal, motor strength intact, sensation intact, . PSYCH: mood & affect normal, speech normal, thought process normal for age. ASSESSMENT AND PLAN: Orders Placed This Encounter EM New Level 3 DISCONTD: methylPREDNISolone 4 MG Oral Tablet Therapy Pack REVIEW OF WORKUP Xr Ankle (min 3 Views), Right ([id number]) Result Date: 09/13/2018 IMPRESSION: Soft tissue swelling laterally without underlying fractures or dislocations. Calcaneal plantar spur. DIAGNOSIS AT DISCHARGE: Injury, ankle, right, initial encounter (primary encounter diagnosis) First degree ankle sprain, right, initial encounter Meds for this Visit: Requested Prescriptions No prescriptions requested or ordered in this encounter Assessment and Plan: findings are consistent with ankle sprain. Splint with ankle laceup brace , crutches for non-weight bearing for comfort for up to 7 days. Cane as needed The patient indicates understanding of these issues and agrees to the plan. The patient is asked to follow up in 14 days with Primary Care Provider . IN CLEANING MACHINE OPERATOR documented in this encounter Plan of Treatment Upcoming Encounters Date Type Department Care Team (Late st Contact Info) Description 11/24/2024 1:00 PM BOBBIN CLEANING MACHINE OPERATOR Procedure Surgical Procedure Visit [phone] Titus Vieyra MD [address] [place] [address] [address] [place] [address] Scheduled Orders Name Type Priority Associated Diagnoses Orde r Schedule OFFICE/OUTPT VISIT,NEW,LEVL III PROCEDURES Routine Injury, ankle, right, initial encounter First degree ankle sprain, right, initial encounter Ordered: 09/13/2018 AFO, ANKLE GAUNTLET, PREFABRICATED PROCEDURES Routine Injury, ankle, right, initial encounter First degree ankle sprain, right, initial encounter Ordered: 09/13/2018 documented as of this encounter Results * XR ANKLE (MIN 3 VIEWS), RIGHT ([id number]) (09/13/2018 1:30 PM BOBBIN CLEANING MACHINE OPERATOR) Anatomical Region Laterality Modality Lower body Right Computed Radiogr aphy 09/13/2018 1:31 PM BOBBIN CLEANING MACHINE OPERATOR Impressions 09/13/2018 1:34 PM BOBBIN CLEANING MACHINE OPERATOR IMPRESSION: Soft tissue swelling laterally without underlying fractures or dislocations. Calcaneal plantar spur. Narrative 09/13/2018 1:34 PM BOBBIN CLEANING MACHINE OPERATOR DATE OF SERVICE: 09.13.2018 XRAY RIGHT ANKLE CLINICAL INFORMATION: ??Unspecified injury of right ankle, initial encounter. COMPARISON STUDY: ??None. TECHNIQUE: AP, oblique, & lateral views of the ankle, 3 views. FINDINGS: 3 views the right ankle demonstrates mild soft tissue swelling laterally. No underlying fractures of the medial and lateral malleolus are noted. The talar dome is intact. Calcaneal plantar spur is noted. The visualized base of the fifth metatarsal is intact. Procedure Note Sánchez Stockton MD - 09/13/2018 DATE OF SERVICE: 09.13.2018 XRAY RIGHT ANKLE CLINICAL INFORMATION: Unspecified injury of right ankle, initialencounter. COMPARISON STUDY: None. TECHNIQUE: AP, oblique, & lateral views of the ankle, 3 views. FINDINGS: 3 views the right ankle demonstrates mild soft tissue swellinglaterally. No underlying fractures of the medial and lateral malleolus are noted. The talar dome isintact. Calcaneal plantar spur is noted. The visualized base of the fifth metatarsal is intact. ===== IMPRESSION: Soft tissue swelling laterally without underlying fractures ordislocations. Calcaneal plantar spur. Don Ayala MD RIS XRAY documented in this encounter Visit Diagnoses Diagnosis Injury, ankle, right, initial encounter- Primary First degree ankle sprain, right, initial encounter Injury, ankle, right, initial encounter documented in this encounter Additional Health Concerns Assessment Noted Time A fall risk assessment has been complete d for the patient 04/26/2014 7:59 AM CDT documented as of this encounter Care Teams Basting Marker Relationship Specialty Start Date End Date Jeison Orozco MD PCP - General 12/25/01 08/12/23 documented as of this encounter
--- OUTSIDE RECORDS SUMMARY | 2024-11-07 07:01 | XMS_ITS | Encounter Summary ---
Author Organization [facility] Address [address] [place] [address] Care Team Providers Care Cosmetics And Toiletries Salesperson Name Role Phone Jeison Orozco MD Primary Care Provider Unav ailable Reason for Visit * Reason Onset Date Comments Orders Call 06/21/2020 Encounter Details Date Type Department Care Team (Late st Contact Info) Description 06/21/2020 Telephone Internal Medicine - [facility] [address] [facility] [address] [place], [place] [id number] Jeison Orozco MD Orders Call Social History Tobacco Use Types Packs/Day Years [...] as of this encounter Progress Notes * Bruna Spicer CMA - 06/22/2020 12:09 PM CDT Notified pt that order for covid test is placed . Pt verbalize understanding * Ashkan Orozco - 06/21/2020 3:50 PM CDT covid order signed * Makayla Brady - 06/21/2020 3:38 PM CDT Pt called requesting R/O COVID testing prior to visiting Parent on 07/05/20 Denies any symptoms Denies known Exposure to COVID States will be staying in separate quarters when visiting parents But would like to get COVID testing prior to supervisor travel information center does not have VV No upcoming phone visits with PCP for order Dr. Orzoco, 1. Please advise on R/O COVID test request, thank you! CB#[phone] * Courtney Zayas MA - 06/21/2020 3:20 PM CDT Patient wants to go see her parents in [place] and inquiring about COVID testing. She is not sick and just wants to have testing as a precaution. Reaching out to triage nurse for assistance. documented in this encounter Plan of Treatment Upcoming Encounters Date Type Department Care Team (Late st Contact Info) Description 11/24/2024 1:00 PM BRAIDED RUG MAKER Procedure Surgical Procedure Visit [phone] Titus Vieyra MD [address] [place] [address] Scheduled Orders Name Type Priority Associated Diagnoses Orde r Schedule 2019 NOVEL CORONAVIRUS (COVID-19), PHYLICIA Microbiology Routine COVID-19 ruled out Expected: 06/21/2020 (Approximate), Expires: 06/21/2021 documented as of this encounter Visit Diagnoses Diagnosis COVID-19 ruled out- Primary documented in this encounter Additional Health Concerns Assessment Noted Time A fall risk assessment has been complete d for the patient 04/26/2014 7:59 AM CDT documented as of this encounter Care Teams Cosmetics And Toiletries Salesperson Relationship Specialty Start Date End Date Jeison Orozco MD PCP - General 12/25/01 08/12/23 documented as of this encounter
--- OUTSIDE RECORDS SUMMARY | 2024-11-07 07:01 | XMS_ITS | Encounter Summary ---
Author Organization [facility] Address [address] [place] [address] Care Team Providers Care Supervisor Education Name Role Phone Jeison Orozco MD Primary Care Provider Unav ailable Reason for Visit * Reason Onset Date Comments Orders Call 12/26/2021 Encounter Details Date Type Department Care Team (Late st Contact Info) Description 12/26/2021 [facility] [address] [place], [place] [id number] Qian Mathur MD [address] [facility] [address] [place], [place] [phone] Orders Call Social History Tobacco Use Types [...] as of this encounter Progress Notes * Colette Benavides - 12/26/2021 9:11 AM CST Left a message for patient to call back and schedule a DX FIELD ROUSTABOUT documented in this encounter Plan of Treatment Upcoming Encounters Date Type Department Care Team (Late st Contact Info) Description 11/24/2024 1:00 PM OIL FIELD ROUSTABOUT Procedure Surgical Procedure Visit [phone] Titus Vieyra MD [address] [facility] [address] [place] [address] documented as of this encounter Visit Diagnoses Not on filedocumented in this encounter Additional Health Concerns Assessment Noted Time A fall risk assessment has been complete d for the patient 04/26/2014 7:59 AM CDT documented as of this encounter Care Teams Supervisor Education Relationship Specialty Start Date End Date Jeison Orozco MD PCP - General 12/25/01 08/12/23 documented as of this encounter
--- OUTSIDE RECORDS SUMMARY | 2024-11-07 07:01 | XMS_ITS | Encounter Summary ---
Author Organization [facility] Address [address] [place] [id number] Care Team Providers Care Candy Puller Name Role Phone Jeison Orozco MD Primary Care Provider Unav ailable Encounter Details Date Type Department Care Team (Latest Contact Info) Description 09/13/2018 1:45 PM GUEST SERVICES ASSISTANT Ancillary Procedure Radiology - [address], [address] [place], [place] [address] Injury, ankle, right, initial encounter Social History Tobacco Use [...] st Contact Info) Description 11/24/2024 1:00 PM GUEST SERVICES ASSISTANT Procedure Surgical Procedure Visit [phone] Titus Vieyra MD [address] [place] [address] documented as of this encounter Procedures Procedure Name Priority Date/Time Associated Diagnosis Comments XR ANKLE (MIN 3 VIEWS), RIGHT ([id number]) STAT 09/13/2018 1:30 PM GUEST SERVICES ASSISTANT Injury, ankle, right, initial encounter documented in this encounter Results * XR ANKLE (MIN 3 VIEWS), RIGHT ([id number]) (09/13/2018 1:30 PM GUEST SERVICES ASSISTANT) Anatomical Region Laterality Modality Lower body Right Computed Radiogr aphy 09/13/2018 1:31 PM GUEST SERVICES ASSISTANT Impressions 09/13/2018 1:34 PM GUEST SERVICES ASSISTANT IMPRESSION: Soft tissue swelling laterally without underlying fractures or dislocations. Calcaneal plantar spur. Narrative 09/13/2018 1:34 PM GUEST SERVICES ASSISTANT DATE OF SERVICE: 09.13.2018 XRAY RIGHT ANKLE [...] without underlying fractures ordislocations. Calcaneal plantar spur. Sandor Ayala MD RIS XRAY documented in this encounter Visit Diagnoses Diagnosis Injury, ankle, right, initial encounter documented in this encounter Additional Health Concerns Assessment Noted Time A fall risk assessment has been complete d for the patient 04/26/2014 7:59 AM CDT documented as of this encounter Care Teams Candy Puller Relationship Specialty Start Date End Date Jeison Orozco MD PCP - General 12/25/01 08/12/23 documented as of this encounter
--- OUTSIDE RECORDS SUMMARY | 2024-11-07 07:01 | XMS_ITS | Encounter Summary ---
Author Organization [facility] Address [address] [place] [address] Care Team Providers Care Talent Director Name Role Phone Jeison Orozco MD Primary Care Provider Unav ailable Reason for Visit * Reason Onset Date Comments Condition Update 08/23/2019 Encounter Details Date Type Department Care Team (Late st Contact Info) Description 08/23/2019 Telephone Gastroenterology - [address] [place] [address] Titus Vieyra MD [address] [facility] [address] [place] [address] Condition Update Social History Tobacco Use Types [...] as of this encounter Progress Notes * Anton Serna - 08/23/2019 2:23 PM CDT Discussed with pt. States will monitor for now and call back if sx return. * Titus Vieyra MD - 08/23/2019 12:15 PM CDT If symptoms resolved, would just monitor If worsens or bleeding recurs, can consider other eval If she has chronic constipation and wants to discuss other options for treatment, she can make OV w/ me to discuss some possible options Please let her know Titus Vieyra MD [facility] * Ani Mendoza RN - 08/23/2019 9:[address] Vieyra, please review and advise, symptoms have resolved. Patient last seen for colonoscopy in February 2019, no polyps, diverticulosis, internal hemorrhoids. She states she has a history of a slow bowel and she felt like she may have had an impaction over the weekend that caused her symptoms. Reporting: Onset Friday, resolved on Friday. Had a severe headache before vomited - took 1000 mg of Tylenol Vomiting, abdominal cramping, very explosive diarrhea and tons of gas. Explosive diarrhea, extremely loose, denies black stool, no blood in stool. Then had two very soft BM's after, did not see blood in stool Gassy stage, blood on tissue and blood in toilet Stated she had about 2 tablespoons of BRB with every passing gas which happened about 15 times. Sometimes has to strain to have a BM. Doesn't BM have a every day which is very normal for her. No rectal pain No dizziness or feeling lightheaded No one else sick in household Continues to be gassy but no more signs of blood. Ate rice and a banana yesterday. Today hasn't eaten yet but will be eating shortly. Denies: Fever, chill at time of episodes Best call back is [phone] documented in this encounter Plan of Treatment Upcoming Encounters Date Type Department Care Team (Late st Contact Info) Description 11/24/2024 1:00 PM DRIFT MINER Procedure Surgical Procedure Visit [phone] Titus Vieyra MD [address] [facility] [address] [place] [address] documented as of this encounter Visit Diagnoses Not on filedocumented in this encounter Additional Health Concerns Assessment Noted Time A fall risk assessment has been complete d for the patient 04/26/2014 7:59 AM CDT documented as of this encounter Care Teams Talent Director Relationship Specialty Start Date End Date Jeison Orozco MD PCP - General 12/25/01 08/12/23 documented as of this encounter
--- OUTSIDE RECORDS SUMMARY | 2024-11-07 07:01 | XMS_ITS | Encounter Summary ---
Author Organization [facility] Address [address] [place] [address] Care Team Providers Care Private Banker Name Role Phone Sona Saenz MD Primary Care Provider [phone] Encounter Details Date Type Department Care Team (Late st Contact Info) Description 05/03/2020 Orders Only Internal Medicine - [facility] [address] [facility] [address] [place] [address] Jeison Orozco MD Special screening examination for unspecified viral disease Social History Tobacco Use Types Packs/Day Years [...] st Contact Info) Description 11/24/2024 1:00 PM RN CLINICIAN Procedure Surgical Procedure Visit [phone] Titus Vieyra MD [address] [place] [address] [address] [place] [address] documented as of this encounter Procedures Procedure Name Priority Date/Time Associated Diagnosis Comments [facility] PRIORIT[facility] TEST CODE STAT 05/03/2020 10:47 AM CDT Special screening examination for unspecified viral disease 2019 NOVEL CORONAVIRUS (COVIDENTIFICATION-19) , NUCLEIC ACID AMPLIFICATION STAT 05/03/2020 10:47 AM CDT Special screening examination for unspecified viral disease documented in this encounter Results * [facility] PRIORITIZATION TEST CODE (05/03/2020 10:47 AM CDT) Prioritization Test Comment 05/06/2020 6:09 AM CDT [facility] ([facility]) Comment:Received Other NASOPHARYNGEAL SWAB / Unknown 05/03/2020 10:47 AM CDT 05/03/2020 12:25 PM CDT Narrative [facility]) - 05/06/2020 6:09 AM CDT Performed at: ??01 - [place] [address] [address] [facility] 2nd Floor, [facility] [place] ??[phone] Gas Station Operator: Evelyn Casper MD, Phone: ??[phone] Jeison Orozco MD LABORATORY [facility]) * 2019 NOVEL CORONAVIRUS (COVID-19), PHYLICIA (05/03/2020 10:47 AM CDT) SARS-CoV-2, PHYLICIA Not Detected Not Detected 05/06/2020 6:09 AM CDT [facility]) Comment: Testing was performed using the karen(R) SARS-CoV-2 test. This test was developed and its performance characteristics determined by [facility]. This test has not been FDA cleared or approved. This test has been authorized by FDA under an Emergency Use Authorization (EUA). This test is only authorized for the duration of time the declaration that circumstances exist justifying the authorization of the emergency use of in vitro diagnostic tests for detection of SARS-CoV-2 virus and/or diagnosis of COVID-19 infection under section 564(b)(1) of the Act, 21 U.S.C. 360bbb-3(b)(1), unless the authorization is terminated or revoked sooner. When diagnostic testing is negative, the possibility of a false negative result should be considered in the context of a patient's recent exposures and the presence of clinical signs and symptoms consistent with COVID-19. An individual without symptoms of COVID-19 and who is not shedding SARS-CoV-2 virus would expect to have a negative (not detected) result in this assay. Other NASOPHARYNGEAL SWAB / Unknown 05/03/2020 10:47 AM CDT 05/03/2020 12:25 PM CDT Narrative [facility] ([facility]) - 05/06/2020 6:09 AM CDT Performed at: ??01 - [place] [address] [address] [facility] [address] [facility], [place], [place] ??[id number] Gas Station Operator: Evelyn Casper MD, Phone: ??[phone] Jeison Orozco MD MICROBIOLOGY [facility] MATHIEU SAM) documented in this encounter Visit Diagnoses Diagnosis Special screening examination for unspecified viral disease documented in this encounter Additional Health Concerns Infection Onset Date Last Indicated Resolved Time R/O COVID19 05/03/2020 05/03/2020 05/06/2020 5:10 AM CDT Assessment Noted Time A fall risk assessment has been complete d for the patient 04/26/2014 7:59 AM CDT documented as of this encounter Care Teams Private Banker Relationship Specialty Start Date End Date Sona Saenz MD [address] [address] PCP - General Internal Medicine 06/07/24 documented as of this encounter
--- OUTSIDE RECORDS SUMMARY | 2024-11-07 07:01 | XMS_ITS | Encounter Summary ---
Author Organization [facility] Address [address] [place] [address] Care Team Providers Care Vfx Artist Name Role Phone Nika Orozco MD Primary Care Provider Unav ailable Reason for Referral * Procedure (Routine) - Closed Specialty Diagnoses / Procedures Referred By Delmi zee Referred To Contact Gastroenterology Diagnoses History of colon polyps Procedures COLONOSCOPY,DIAGNOSTIC Titus Vieyra MD [address] [place] [address] Titus Vieyra MD [address] [place] [address] Referral ID Status Reason Start Date Expiration Date V isits Requested Visits Authorized [id number] Closed Insurance Pend 01/22/2019 01/22/2020 3 3 Scheduling Instructions This department sees patients 18 years and older. If your appointment has not been made for you during today's visit, please refer to the scheduling instructions below. Your physician has referred you to a Windows [employer] Support affiliated with [facility] or for a Gastroenterology test. To schedule your appointment, [place]: [address], [address], [place] [address] [place]: [address] [facility] [address], [address], [place] [address] [place]: [facility] [place] [address] [place]: [address] [facility], [place] [address] [facility]): [address], [address], [place] [address] [place]: [address] [facility], [address], [place] [address] [place]: [address] [place] [address] [place]: [address] [place] [address] Phone: [place]: [address] [place] [address] [place]: [address] [facility], [address], [place] [address] [facility]): [address], [address], [place] [address] [place]: [address], [address], [place] [address] [place]: [address] [facility], [facility] [address], [place] [address] [facility]): [address] , [address], [place] [address] [place]: [address] [facility], [facility] [address], [place] [address] [place]: [address], [place] [address] [place] [address] [place] [address] For more information about [facility] physicians and locations, visit: [email or web address] In order to insure proper patient [...] office or the Utilization Management Department at [phone], seventy-two (72) hours after the order is placed. Referrals can not be entered retrospectively. IF YOU HAVE PPO INSURANCE COVERAGE If your medical insurance is a PPO, it is the patient's responsibility to confirm that any provider, vendor and/or facility outside of [facility] is in your network. Although your PPO insurance may not require referrals, there are certain procedures (MRI, Nuclear Stress Test, Surgery, etc.) that may require an authorization from your insurance company. As long as the service is being performed at [facility], the [facility] staff will obtain the necessary authorization on your behalf. IF YOU HAVE HMO INSURANCE COVERAGE Your insurance requires a referral from your Primary Care Physician. [facility] will obtain authorization from your insurance company for services ordered by your [facility] PCP or G specialist. A referral is not a guarantee of benefit, and we highly recommend that you call your insurance company to verify your coverage ER TONGER Encounter Details Date Type Department Care Team (Late st Contact Info) Description 12/31/2018 8:10 AM OYSTER TONGER Nurse Only Gastoenterology - [place] [address] [place] [address] Charge Entered Social History Tobacco Use Types Packs/Day Years [...] Taken Comments Blood Pressure - - Pulse - - Temperature - - Respiratory Rate - - Oxygen Saturation - - Inhaled Oxygen Concentration - - Weight 68 kg (150 lb) 12/31/2018 8:10 AM OYSTER TONGER Height 167.6 cm (5' 6 ) 12/31/2018 8:10 AM OYSTER TONGER Body Mass Index 24.21 12/31/2018 8:10 AM OYSTER TONGER documented in this encounter Functional Status Functional Status Response Date of Assess ment Hearing Problems? No 12/28/2018 Vision Problems? No 12/28/2018 Difficulty walking? No 12/28/2018 Difficulty dressing or bathing? No 12/28/2018 Problems with daily activities? No 12/28/2018 Cognitive Status Response Date of Assessm ent Memory Problems? No 12/28/2018 documented as of this encounter Progress Notes * Robin Carr - 12/31/2018 8:10 AM CST TELEPHONE CONSULT -DEPARTMENT OF GASTROENTEROLOGY CHIEF COMPLAINT: personal history of polyps 12/31/2018 Tonya Costello [id number] Telephone Information: Titus Vieyra MD Conducted by: Edvin OZUNA 58 year old 1960 female CHAPITO FREY, NIKA OSORIO MD Estimated body mass index is 24.21 kg/m?? as calculated from the following: Height as of this encounter: 5' 6 (1.676 m). Weight as of this encounter: 150 lb (68 kg). Latex Allergy: No As a courtesy we are able to offer you this colon cancer screening appointment over the phone free of charge however, if you prefer to see the physician in the office first, I can make that appointment for you. You will have to check with your insurance regarding coverage for an office visit. Tonya Costello was offered an office visit with a physician before their procedure and it was Declined at this time. OPEN ACCESS QUESTIONAIRE: 1. Are you currently taking any anticoagulant/ antiplatelet medication? No Okay to continue interview if taking Aspirin 2. Have you had three or more abdominal surgeries? No 3. Do you have a pacemaker or internal defibrillator?No 4. Have you had any cardiac stents placed within the past year? No 5. Have you ever had any problems with anesthesia (i.e. general, or IV sedation) such as extreme nausea, vomiting, difficulty being sedated , becoming alert during sedation or difficulty with arousal? N/V 6. Have you ever been told you have a difficult airway and/or airway management resulting in intubation?No 7. Over the last 18 months have you used narcotics or prescription pain medication? No 8. Do you use home oxygen? No 9. Do you suffer from chest pain or shortness of breath? No 10. Have you ever had a stroke or TIA ?No 11. Do you suffer from any hereditary coagulation diseases such as; Hemophilia, Willebrand disease or low platelet count ? No 12. Do you suffer from any type of liver disease? No 13. Do you suffer from rectal bleeding ,anemia, diarrhea, abdominal pain, diverticulitis,unintentional weight loss ,change in bowel habits or chronic infections ,Crohn's disease, colitis, Ulcerative colitis , celiac disease,? No 14. Have you or any of your family members suffered from malignant hyperthermia? No 15. Have you been diagnosed with a cancer within the last 6 months or are you currently undergoing active treatment for cancer? No Tonya Costello GI History Findings: Colonoscopy/Year 11/2015 Polyps Removed from the : descending colon TA No HP No Upper Endoscopy /Year Allergies: Penicillins RASH Medications: Current Outpatient Medications: Nutritional Supplements (JUICE PLUS FIBRE OR) Take by mouth. Disp: Rfl: [place] 3-6-9 Fatty Acids (OMEGA 3-6-9 COMPLEX OR) Take by mouth. Disp: Rfl: Cholecalciferol (VITAMIN D) 1000 units Oral Tab Take by mouth. Disp: Rfl: B Jttoruh-K-Tgccv Acid (HM VITAMIN B COMPLEX/VITAMIN C) Oral Tab Take by mouth. Disp: Rfl: TURMERIC OR Take by mouth. Disp: Rfl: Probiotic Product (PROBIOTIC DAILY OR) Take by mouth. Disp: Rfl: HISTORY: Past Medical History: Diagnosis Date ??? [...] years ??? COLONOSCOPY, POSSIBLE BIOPSY, POSSIBLE POLYPECTOMY 28029 N/A 05/04/2015 Performed by Titus Vieyra MD at [facility] ??? COLONOSCOPY, POSSIBLE BIOPSY, POSSIBLE POLYPECTOMY 12193 N/A 08/03/2012 Performed by Titus Vieyra MD at [facility] ??? FLEXIBLE SIGMOIDOSCOPY WITH BIOPSY, POLYPECTOMY N/A 01/11/2013 Performed by Titus Vieyra MD at [facility] ??? OTHER SURGICAL HISTORY facial plastic surgery ??? REMOVAL OF COCCYX broken coccyx, fall / childbirth/jet ski No family history on file. Social History Tobacco Use Smoking status: Former Smoker Years: 10.00 Smokeless tobacco: Never Used Tobacco comment: quit 26 yrs ago Alcohol use: Yes 1-5 drinks a week Drug use: No Review of Systems: Thyroid problems No Chronic Kidney issues No If on dialysis please do not schedule at the [facility] Immune disorders No Overall General Health Good Yes Hearing aides No CV issues No Internal Defibrillator or pacemaker No Anxiety or depression No Rash/Lesions No Prep issues No Neuro issues No COPD/Asthma No History of MRSA No STAR No HPI as reported by the patient: Unintentional weight loss No Abdominal Pain No Constipation- Chronic No, Change in bowel habits No Blood in stool No Anemia No Heartburn No Indigestion No Difficulty swallowing No Is there anything else that we need to know that would impact your procedure? No Surgery Schedule Date: Fri01/22/19 Procedure time: 11:00 am Location: [place]- Office Endoscopy The patient was instructed that a friend or relative will need [facility] will be [facility] and unable to drive. Use of taxi or limo services are not allowed by the policies of all endoscopy centers that service our patients. If the patient can not find a route sales delivery driver, the patient has the option of having the procedure be a performed without sedation. Diet, prep and medications reviewed with the Tonya Costello. E-scribed or (telephoned ) bowel prep to the patients preferred pharmacy. PREP: Miralax/gatoraide Two day bowel prep instructions given? Yes Two (2) days prior to procedure: drink only clear liquids with calories not just water ALL DAY- NO SOLID FOOD At 4 PM: Drink 1 bottle of Magnesium citrate 10 oz- lemon/ kake flavor only Day prior: Drink only clear liquids with calories not just water ALL DAY- NO SOLID FOOD From 6-8 PM: Drink 1st part of solution 1/2 Gallon (2 L) of PEG Day of procedure: legal practice manager about 6 hours prior to colonoscopy: Drink 2nd part of solution 1/2 Gallon (2 L) of PEG Nothing by mouth 4 hours prior to procedure Insurance coverage has been verified: Yes If no coverage, please transfer call to registration. ER TONGER documented in this encounter Plan of Treatment Upcoming Encounters Date Type Department Care Team (Late st Contact Info) Description 11/24/2024 1:00 PM OYSTER TONGER Procedure Surgical Procedure Visit [phone] Titus Vieyra MD [address] [place] [address] [address] [place] [address] Scheduled Orders Name Type Priority Associated Diagnoses Orde r Schedule CLOSE ENCOUNTER PROCEDURES Routine History of colon polyps Ordered: 12/31/2018 Scheduled Referrals Name Type Priority Associated Diagnoses Orde r Schedule COLONOSCOPY DIAGNOSTIC - REFERRAL Referral Routine History of colon polyps Ordered: 12/31/2018 documented as of this encounter Visit Diagnoses Diagnosis History of colon polyps- Primary Personal history of colonic polyps documented in this encounter Additional Health Concerns Assessment Noted Time A fall risk assessment has been complete d for the patient 04/26/2014 7:59 AM CDT documented as of this encounter Care Teams Vfx Artist Relationship Specialty Start Date End Date Nika Orozco MD PCP - General 12/25/01 08/12/23 documented as of this encounter
--- OUTSIDE RECORDS SUMMARY | 2024-11-07 07:01 | XMS_ITS | Encounter Summary ---
Author Organization [facility] Address [address] [place] [address] Care Team Providers Care Manager Pool Name Role Phone Nika Orozco MD Primary Care Provider Unav ailable Reason for Visit * Reason Onset Date Comments Refill Request 07/08/2019 Refill Request 07/12/2019 Encounter Details Date Type Department Care Team (Late st Contact Info) Description 07/08/2019 Refill Internal Medicine - [facility] [address] [facility] [address] [place], [place] [id number] Nika Orozco MD Refill Request; Refill Request Social History Tobacco Use Types [...] of this encounter Progress Notes * Marie De La Fuente RN - 07/12/2019 2:27 PM CDT Medication phone in to pharmacy Pharmacy to notify pt Requested Prescriptions Signed Prescriptions Disp Refills ??? Zolpidem Tartrate 5 MG Oral Tab 14 tablet 0 Sig: Take 1 tablet (5 mg total) by mouth nightly for 14 days. Authorizing Provider: NIKA OROZCO JR Zolpidem Tartrate 5 MG Oral Tab 14 tablet 0 07/08/2019 07/22/2019 Sig: ?Take 1 tablet (5 mg total) by mouth nightly for 14 days. Route: ?Oral Class: ?Phone in [address] [phone], * Vanessa Raymundo RN - 07/08/2019 1:31 PM CDT Medication(s) to Refill: Requested Prescriptions Pending Prescriptions Disp Refills ??? Zolpidem Tartrate 5 MG Oral Tab 14 tablet 0 Sig: Take 1 tablet (5 mg total) by mouth nightly for 14 days. Reason for Medication Refill being sent to [...] site, site to notify patient when ready Provider - This RX needs to be phoned in. Please route back to Triage so that it can be completed. Last Time Medication was Filled: 11/07/2018 Last Office Visit with PCP: 12/28/2018 When Patient was Due Back to the Office: Not stated (from when PCP last addressed condition) Future Appointments: No future appointments. Last Blood Pressures: BP Readings from Last 2 Encounters: 12/28/18 : 116/66 09/13/18 : 134/77 Recent Labs: Lab Results Component Value Date [...] st Contact Info) Description 11/24/2024 1:00 PM SPECIAL WEAPONS AND TACTICS OFFICER Procedure Surgical Procedure Visit [phone] Titus Vieyra MD [address] [facility] [address] [place] [address] documented as of this encounter Visit Diagnoses Not on filedocumented in this encounter Additional Health Concerns Assessment Noted Time A fall risk assessment has been complete d for the patient 04/26/2014 7:59 AM CDT documented as of this encounter Care Teams Manager Pool Relationship Specialty Start Date End Date Nika Orozco MD PCP - General 12/25/01 08/12/23 documented as of this encounter
--- OUTSIDE RECORDS SUMMARY | 2024-11-07 07:01 | XMS_ITS | Encounter Summary ---
Author Organization [facility] Address [address] [place] [address] Care Team Providers Care Plate Printer Name Role Phone Jeison Orozco MD Primary Care Provider Unav ailable Reason for Visit * Reason Onset Date Comments Triage 04/14/2018 Encounter Details Date Type Department Care Team (Late st Contact Info) Description 04/14/2018 Telephone Internal Medicine - [facility] [address] [facility] [address] [place], [place] [id number] Jeison Orozco MD Triage Social History Tobacco [...] as of this encounter Progress Notes * Lisa Santana RN - 04/18/2018 3:58 PM CDT Nothing further needed from MD or nurse. Closing encounter. * Yola Matias - 04/16/2018 11:46 AM CDT Letter pended. Routed to [facility] to print and mail. Thank you. ?? * Lisa Chaudhry LPN - 04/14/2018 12:14 PM CDT LMTCB * Ashkan Orozco - 04/14/2018 10:05 AM CDT Ok to set up TDAP * Yola Matias - 04/14/2018 9:27 AM CDT Triage - laceration on L great toe - [facility] Pt calling states she cut her L great toe on a metal door last Friday The door was not dionisio Dried blood underneath the skin Cleansed multiple times with soap and water Poured H2O2 over the wound No longer bleeding or swollen No pain at this time Last TDAP 02/25/11 Pt asking if she should schedule Tetanus Booster Please advise documented in this encounter Plan of Treatment Upcoming Encounters Date Type Department Care Team (Late st Contact Info) Description 11/24/2024 1:00 PM AREA COORDINATOR Procedure Surgical Procedure Visit [phone] Titus Vieyra MD [address] [place] [address] [address] [place] [address] documented as of this encounter Visit Diagnoses Not on filedocumented in this encounter Additional Health Concerns Assessment Noted Time A fall risk assessment has been complete d for the patient 04/26/2014 7:59 AM CDT documented as of this encounter Care Teams Plate Printer Relationship Specialty Start Date End Date Jeison Orozco MD PCP - General 12/25/01 08/12/23 documented as of this encounter
--- OUTSIDE RECORDS SUMMARY | 2024-11-07 07:01 | XMS_ITS | Encounter Summary ---
Author Organization [facility] Address [address] [place] [address] Care Team Providers Care Life Skills Coordinator Name Role Phone Jeison Orozco MD Primary Care Provider Unav ailable Encounter Details Date Type Department Care Team (Late st Contact Info) Description 10/09/2019 Telephone Internal Medicine - [facility] [address] [facility] [address] [place] [address] Jeison Orozco MD Social History Tobacco Use [...] st Contact Info) Description 11/24/2024 1:00 PM TURN LASTER Procedure Surgical Procedure Visit [phone] Titus Vieyra MD [address] [place] [address] documented as of this encounter Visit Diagnoses Not on filedocumented in this encounter Additional Health Concerns Assessment Noted Time A fall risk assessment has been complete d for the patient 04/26/2014 7:59 AM CDT documented as of this encounter Care Teams Life Skills Coordinator Relationship Specialty Start Date End Date Jeison Orozco MD PCP - General 12/25/01 08/12/23 documented as of this encounter
--- OUTSIDE RECORDS SUMMARY | 2024-11-07 07:01 | XMS_ITS | Encounter Summary ---
Author Organization [facility] Address [address] [place] [address] Care Team Providers Care Library Serials Assistant Name Role Phone Jeison Orozco MD Primary Care Provider Unav ailable Encounter Details Date Type Department Care Team (Late st Contact Info) Description 11/30/2018 Telephone Podiatry - [facility] [address] [place] [address] Margarita Cotter, DP [address] [place] [address] Social History Tobacco Use Types [...] as of this encounter Progress Notes * Lizeth Mtz - 11/30/2018 5:41 PM CST Will check faxes for this, have signed and returned. TRIC SPOT WELDER * Jackeline Jara - 11/30/2018 9:42 AM CST [facility] requesting the signed & dated initial evaluation/plan of care-11/04/2018 to be faxed back to them at FAX TRIC SPOT WELDER documented in this encounter Plan of Treatment Upcoming Encounters Date Type Department Care Team (Late st Contact Info) Description 11/24/2024 1:00 PM ELECTRIC SPOT WELDER Procedure Surgical Procedure Visit [phone] Titus Vieyra MD [address] [place] [address] [address] [place] [address] documented as of this encounter Visit Diagnoses Not on filedocumented in this encounter Additional Health Concerns Assessment Noted Time A fall risk assessment has been complete d for the patient 04/26/2014 7:59 AM CDT documented as of this encounter Care Teams Library Serials Assistant Relationship Specialty Start Date End Date Jeison Orozco MD PCP - General 12/25/01 08/12/23 documented as of this encounter
--- OUTSIDE RECORDS SUMMARY | 2024-11-07 07:01 | XMS_ITS | Encounter Summary ---
Author Organization [facility] Address [address] [place] [address] Care Team Providers Care Needle Punch Machine Operator Helper Name Role Phone Jeison Orozco MD Primary Care Provider Unav ailable Encounter Details Date Type Department Care Team (Latest Contact Info) Description 02/05/2022 8:30 AM CDT DMG Lab Encounter Lab - [facility] [address] [place] [address] Routine general medical examination at a health care facility; Dyslipidemia Social History Tobacco Use Types Packs/Day Years [...] Progress Notes * Qian Mathur MD - 02/05/2022 8:30 AM CDT See MyChart comments documented in this encounter Plan of Treatment Upcoming Encounters Date Type Department Care Team (Late st Contact Info) Description 11/24/2024 1:00 PM UNDERCAR SPECIALIST Procedure Surgical Procedure Visit [phone] Titus Vieyra MD [address] [place] [address] documented as of this encounter Procedures Procedure Name Priority Date/Time Associated Diagnosis Comments LIPID PANEL Routine 02/05/2022 8:31 AM CDT Routine general medical examination at a health care facility Dyslipidemia BASIC METABOLIC PANEL Routine 02/05/2022 8:31 AM CDT Routine general medical examination at a [facility] facility documented in this encounter Results * LIPID PANEL (02/05/2022 8:31 AM CDT) Patient Fasting? Yes 02/06/20 11:23 AM CDT [facility] Triglycerides 44.00 <=150.00 mg/dL 02/05/2022 11:23 AM CDT [facility] Direct HDL 66 >=40 mg/dL 02/05/2022 11:23 AM CDT [facility] Comment:Guidelines for high density lipoprotein (HDL) are adapted from the National Cholesterol Education Program (NCEP).Values >=40 mg/dL are considered a negative risk factor for coronary heart disease (CHD) and are considered protective. Risk Factor 2.6 <5.0 02/05/2022 11:23 AM CDT [facility] Cholesterol 169.00 <=200.00 mg/dL 02/05/2022 11:23 AM CDT [facility] Calculated LDL 94 <=130 mg/dL 02/05/2022 11:23 AM CDT [facility] Total Chol/HDL Ratio 3 0.0 - 4.5 ratio 02/05/2022 11:23 AM CDT [facility] Calculated VLDL 9 <=30 mg/dL 02/05/2022 11:23 AM CDT [facility] Blood Venipuncture / Unknown 02/05/2022 8:31 AM CDT 02/05/2022 8:31 AM CDT Qian Mathur MD LAB BLOOD ORDERABLE S [facility] [address] [phone] * BASIC METABOLIC PANEL (8) (02/05/2022 8:31 AM CDT) Patient Fasting? Yes 02/05/2022 11:23 AM CDT [facility] Sodium 143 136 - 145 mmol/L 02/05/2022 11:23 AM CDT [facility] Potassium 4.43 3.50 - 5.10 mmol/L 02/05/2022 11:23 AM CDT [facility] Chloride 104 98 - 107 mmol/L 02/05/2022 11:23 AM CDT [facility] Carbon Dioxide 24.9 22.0 - 29.0 mmol/L 02/05/2022 11:23 AM CDT [facility] Blood Urea Nitrogen 13.0 6.0 - 20.0 mg/dL 02/05/2022 11:23 AM CDT [facility] Creatinine 0.66 0.50 - 0.90 mg/dL 02/05/2022 11:23 AM CDT [facility] BUN/CREAT Ratio 20.0 10.0 - 20.0 02/05/2022 11:23 AM CDT [facility] Glucose 99 74 - 109 mg/dL 02/05/2022 11:23 AM CDT [facility] Calcium 9.7 8.6 - 10.3 mg/dL 02/05/2022 11:23 AM CDT [facility] GFR CKD-EPI 94.31 >=60.00 mL/min/1.7 3 m?? 02/05/2022 11:23 AM CDT [facility] Comment: Estimated GFR units: mL/min/1.73 square meters eGFR calculated by the CKD-EPI equation. Blood Venipuncture / Unknown 02/05/2022 8:31 AM CDT 02/05/2022 8:31 AM CDT Qian Mathur MD LAB BLOOD ORDERABLE S [facility] [address] [phone] documented in this encounter Visit Diagnoses Diagnosis Routine general medical examination at a health care facility Dyslipidemia Other and unspecified hyperlipidemia documented in this encounter Additional Health Concerns Assessment Noted Time A fall risk assessment has been complete d for the patient 04/26/2014 7:59 AM CDT documented as of this encounter Care Teams Needle Punch Machine Operator Helper Relationship Specialty Start Date End Date Jeison Orozco MD PCP - General 12/25/01 08/12/23 documented as of this encounter
--- OUTSIDE RECORDS SUMMARY | 2024-11-07 07:01 | XMS_ITS | Encounter Summary ---
Author Organization [facility] Address [address] [place] [address] Care Team Providers Care Hammer Fitter Name Role Phone Jeison Orozco MD Primary Care Provider Unav ailable Reason for Referral * Rehab Services (Routine) - Closed Specialty Diagnoses / Procedures Referred By Delmi zee Referred To Contact Rehabilitation Diagnoses Sprain of anterior talofibular ligament of right ankle, initial encounter Margarita Cotter, DPM [address] [facility] [address] [place] [address] Referral ID Status Reason Start Date Expiration Date Visits Re quested Visits Authorized [id number] Closed 11/02/2018 11/02/2019 8 8 Scheduling Instructions THIS IS NOT A REFERRAL Your physician has referred to [facility] Physical Therapy and/or Occupational Therapy. To schedule please call [phone]. Our therapists provide comprehensive care by utilizing the same medical record system as your [facility] physician. This unique advantage ensures consistent communication and collaboration between your therapist and your physician. [place]: [address], [address] (N side of [facility]; between [place] and [place]) [place]: [address] ([address]) [place]: [address] [place]: [address] (2 blocks south of [address]; adjacent to [employer] [place]: [address] ([place] of [place]) [place]: [address] (In the Bank Building on the corner of [place] and [facility]) [place]: [address] ([place] and [place]) [place]: [address] (NW Corner of [place] and [place]) [place]: [address] (1/2 [address] of [address]) [place]: [address] ([place] Corner of [place] and [place]) [place]: [address] (between [address] and [address]) [place]: [address], [address] (between [address] and [address]) [place]: [address] ([place] of ) [place]: [address] (NW Corner of [address]; Entrance is facing [address]) [place]/[facility]: [address] ([address] and [place]) [place]: [address] [place] [address] (N side of [place]; South of [facility]) [place]: [address], [address] ([place] [address] of [address] [place]: [address] ([address] corner of [address]) [place]: [address] ([address]) [place]: [address] (W side of [address], 1 [address] S of [place]) [place]: [address] ([address] corner of [address] and [address]) [place]: [address] ([address] of [address], E side of [place], behind [place]) [place]: [address] ([place] of [place]) [place]: [address] ([place] [address] [place]: [address] ([place] [address] of [address]) Insurance authorization: It is important that you contact your health insurance directly to determine your therapy benefit coverage including co-payment, deductible, patient payment responsibility, or visit limitation. If you choose to have these services performed at a location other than those listed above, you are responsible for obtaining any prior authorization required by your benefit plan. Your first appointment: Please arrive 10-15 minutes prior to your appointment time to fill out all necessary paperwork. Also, bring your insurance information, photo ID, the order from your doctor and any copayments due. Wear loose comfortable clothing and appropriate shoes for exercise. Patients being evaluated for dizziness: Please arrive with an accompanying funeral limousine driver for the first appointment. You are advised to avoid taking medication used to reduce dizziness for 24 hours prior to your initial evaluation. For directions and additional information about [email or web address] [employer] [facility] services, physicians and locations, visit [email or web address]. Comments Include modalities ER LEVELER OPERATOR Reason for Visit * Reason Comments Establish Care LUCILLE 11/14/16 Plantar fasciitis, right. Pt presents with right ankle pain x3-4 months injury rolled ankle in August xr 09/13/18 states feels painful when flexing and rotating, has brace. . Encounter Details Date Type Department Care Team (Late st Contact Info) Description 11/02/2018 12:10 PM ROLLER LEVELER OPERATOR [facility] [address] [facility] [address] [place], [place] [id number] Margarita Cotter DPM [address] [place] [address] Sprain of anterior talofibular ligament of right ankle, initial encounter (Primary Dx) Social History Tobacco Use Types [...] Progress Notes * Margarita Cotter, DPM - 11/02/2018 12:10 PM CST Tonya Costello is a 57 year old female. Patient presents with: Establish Care: LUCILLE 11/14/16 Plantar fasciitis, right. Pt presents with right ankle pain x3-4 monthsinjury rolled ankle in August xr 09/13/18 states feels painful when flexing and rotating, has brace. . HISTORY: Past medical, surgical, social and family history reviewed and appreciated. Allergies: Penicillins RASH Current Meds: No current outpatient medications on file. Patient presents with: Establish Care: [facility] 11/14/16 Plantar fasciitis, right. Pt presents with right ankle pain x3-4 monthsinjury rolled ankle in August xr 09/13/18 states feels painful when flexing and rotating, has brace. . Patient presents office today complaining of an injury to the right ankle that occurred 2 months ago. She had x-rays taken September 13 which were negative for fracture. She states she injured the ankle when she missed the last step on the stairs. She has been wearing a lace up ankle support brace. She also wears orthotics that she presents with for my evaluation today. OBJECTIVE: Pt presents unaccompanied Integument: Inspection and palpation of integument reveals integ to be warm, dry, and supple bilateral. There is positive pedal hair growth bilateral. There are no changes in skin coloration. There are no open lesions and there are no signs of infection. Vascular: Dorsalis pedis and posterior tibial pulses are 2/4 bilaterally. Capillary filling time isless than 3 seconds to digits 1 through 5 bilaterally. There is no peripheral edema noted. Neurologic: Grossly intact to sharp/dull, light touch, and proprioception bilaterally. Musculoskeletal: Muscle strength is 5/5 supinators and pronators. Joints are congruous, equal, and pain-free. There is pain on palpation of the right ATF ligament. There is also pain across the anterior aspect of the right ankle joint and slightly along the deltoid ligament of the right ankle. Minimal edema along the lateral ankle ligaments right. The ankle is clinically stable. X-rays were obtained previously negative for acute osseous injury. ASSESSMENT: (S97.591N) Sprain of anterior talofibular ligament of right ankle, initial encounter (primary encounter diagnosis) Plan: PT FOOT AND ANKLE EVAL & TREAT (DMG) Capsulitis right ankle PLAN: Examined patient Reviewed prior x-rays Rx physical therapy Can continue use of ankle support brace Current orthotics are adequate Discussed adding an [id number] Aleve twice daily. Follow-up if failure to improve. ID#[id number] ER LEVELER OPERATOR documented in this encounter Plan of Treatment Upcoming Encounters Date Type Department Care Team (Late st Contact Info) Description 11/24/2024 1:00 PM ROLLER LEVELER OPERATOR Procedure Surgical Procedure Visit [phone] Titus Vieyra MD [address] [facility] [address] [place] [address] Scheduled Orders Name Type Priority Associated Diagnoses Orde r Schedule OFFICE/OUTPT VISIT,EST,LEVL III PROCEDURES Routine Sprain of anterior talofibular ligament of right ankle, initial encounter Ordered: 11/02/2018 Scheduled Referrals Name Type Priority Associated Diagnoses Orde r Schedule PT FOOT AND ANKLE EVAL & TREAT (DMG) Referral Routine Sprain of anterior talofibular ligament of right ankle, initial encounter Ordered: 11/02/2018 documented as of this encounter Visit Diagnoses Diagnosis Sprain of anterior talofibular ligament of right ankle, initial encounter- Primary documented in this encounter Additional Health Concerns Assessment Noted Time A fall risk assessment has been complete d for the patient 04/26/2014 7:59 AM CDT documented as of this encounter Care Teams Hammer Fitter Relationship Specialty Start Date End Date Jeison Orozco MD PCP - General 12/25/01 08/12/23 documented as of this encounter
--- OUTSIDE RECORDS SUMMARY | 2024-11-07 07:01 | XMS_ITS | Encounter Summary ---
Author Organization [facility] Address [address] [place] [address] Care Team Providers Care Account Adjuster Name Role Phone Sona Saenz MD Primary Care Provider [phone] Encounter Details Date Type Department Care Team (Late st Contact Info) Description 01/15/2022 Orders Only Internal Medicine - [facility] [address] [facility] [address] [place] [address] Qian Mahtur MD [address] [facility] [address] [place], [place] [id number] Social History Tobacco Use Types Packs/Day Years [...] Recorded In the last 10 days, have pino gasca been in contact with someone who was [...] st Contact Info) Description 11/24/2024 1:00 PM FIELD ENGINEER Procedure Surgical Procedure Visit [phone] Titus Vieyra MD [address] [place] [address] [address] [place] [address] documented as of this encounter Procedures Procedure Name Priority Date/Time Associated Diagnosis Comments DIAG POLYSOMNOGRAM, SLEEP MED (DULY) 01/15/2022 10:16 PM CDT documented in this encounter Results * DIAG POLYSOMNOGRAM, SLEEP MED (DMG) (01/15/2022 10:16 PM CDT) 01/15/2022 10:1 6 PM CDT Qian Mathur MD REFERRAL [facility] RADIOLOGY documented in this encounter Visit Diagnoses Not on filedocumented in this encounter Additional Health Concerns Assessment Noted Time A fall risk assessment has been complete d for the patient 04/26/2014 7:59 AM CDT documented as of this encounter Care Teams Account Adjuster Relationship Specialty Start Date End Date Sona Saenz MD [address] [facility] [address] [place] [address] PCP - General Internal Medicine 06/07/24 documented as of this encounter
--- OUTSIDE RECORDS SUMMARY | 2024-11-07 07:01 | XMS_ITS | Encounter Summary ---
Author Organization [facility] Address [address] [place] [address] Care Team Providers Care Graduate Student Instructor Name Role Phone Jeison Orozco MD Primary Care Provider Unav ailable Reason for Visit * Reason Onset Date Comments Refill Request 11/05/2018 Encounter Details Date Type Department Care Team (Late st Contact Info) Description 11/05/2018 Refill Internal Medicine - [facility] [address] [facility] [address] [place], [place] [phone] Jeison Orozco MD Refill Request Social History [...] * Marie De La Fuente RN - 11/07/2018 10:42 AM CST Medication(s) to Refill: Requested Prescriptions Pending Prescriptions [...] when ready Last Time Medication was Filled: Zolpidem Tartrate 5 MG Oral Tab 14 tablet 0 05/05/2018 06/04/2018 Sig : ??Take 1 tablet (5 mg total) by mouth nightly. Route: ?Oral Class: ?Phone in Last Office Visit with PCP: 10/14/2018 When Patient was Due Back to the Office: Not noted (from when PCP last addressed condition) Future Appointments: No future appointments. Last Blood Pressures: BP Readings from Last 2 Encounters: 09/13/18 : 134/77 10/08/17 : 112/72 Recent Labs: Lab Results Component Value Date GLU 92 04/21/2015 BUN 12 04/21/2015 CREATSERUM 0.68 04/21/2015 CA 9.3 04/21/2015 NA 145 04/21/2015 K 5.1 04/21/2015 CL 104 04/21/2015 CO2 28 04/21/2015 CAL MANAGEMENT SPECIALIST * Wally Pinzon MA - 11/05/2018 11:29 AM CST Pt calling to request refills on the following: Requested Prescriptions Pending Prescriptions Disp Refills ??? Zolpidem Tartrate 5 MG Oral Tab 14 tablet 0 Sig: Take 1 tablet (5 mg total) by mouth nightly. No future appointments. CAL MANAGEMENT SPECIALIST documented in this encounter Plan of Treatment Upcoming Encounters Date Type Department Care Team (Late st Contact Info) Description 11/24/2024 1:00 PM MEDICAL MANAGEMENT SPECIALIST Procedure Surgical Procedure Visit [phone] Titus Vieyra MD [address] [facility] [address] [place] [address] documented as of this encounter Visit Diagnoses Not on filedocumented in this encounter Additional Health Concerns Assessment Noted Time A fall risk assessment has been complete d for the patient 04/26/2014 7:59 AM CDT documented as of this encounter Care Teams Graduate Student Instructor Relationship Specialty Start Date End Date Jeison Orozco MD PCP - General 12/25/01 08/12/23 documented as of this encounter
--- OUTSIDE RECORDS SUMMARY | 2024-11-07 07:01 | XMS_ITS | Encounter Summary ---
Author Organization [facility] Address [address] [place] [address] Care Team Providers Care Fire Protection Designer Name Role Phone Jeison Orozco MD Primary Care Provider Unav ailable Reason for Visit * Reason Comments Refill Request Encounter Details Date Type Department Care Team (Late st Contact Info) Description 07/09/2019 Refill Internal Medicine - [facility] [address] [facility] [address] [place], [place] [phone] Jeison Orozco MD Refill Request Social History [...] as of this encounter Progress Notes * DerrickJacquelyn - 07/12/2019 2:08 PM CDT Medication(s) to Refill: Requested Prescriptions Pending Prescriptions Disp Refills ??? ZOLPIDEM TARTRATE 5 MG Oral Tab [Pharmacy Med Name: ZOLPIDEM TARTRATE 5 MG TABLET] 14 tablet 0 Sig: TAKE 1 TABLET BY MOUTH EVERY EVENING Reason for Medication Refill being sent to [...] when ready Last Time Medication was Filled: 07/08/19 See TE from 07/08/19 for refill on zolpidem This request denied documented in this encounter Plan of Treatment Upcoming Encounters Date Type Department Care Team (Late st Contact Info) Description 11/24/2024 1:00 PM AGENCY SALES DIRECTOR Procedure Surgical Procedure Visit [phone] Titus Vieyra MD [address] [place] [address] [address] [place] [address] documented as of this encounter Visit Diagnoses Not on filedocumented in this encounter Additional Health Concerns Assessment Noted Time A fall risk assessment has been complete d for the patient 04/26/2014 7:59 AM CDT documented as of this encounter Care Teams Fire Protection Designer Relationship Specialty Start Date End Date Jeison Orozco MD PCP - General 12/25/01 08/12/23 documented as of this encounter
--- OUTSIDE RECORDS SUMMARY | 2024-11-07 07:01 | XMS_ITS | Encounter Summary ---
Author Organization [facility] Address [address] [place] [address] Care Team Providers Care Transmission Repairer Name Role Phone Jeison Orozco MD Primary Care Provider Unav ailable Reason for Visit * Reason Onset Date Comments Triage 06/11/2021 Encounter Details Date Type Department Care Team (Late st Contact Info) Description 06/11/2021 Telephone Internal Medicine - [facility] [address] [facility] [address] [place] [address] Marie Doran MD Triage Social History Tobacco Use Types [...] as of this encounter Progress Notes * Cj Cleaning RN - 06/11/2021 10:32 AM CDT ADULT TRIAGE BUILD - Pulmonary / Respiratory Problems Protocol / Cough / Sore Throat / Colds / URI Triage Disposition: [] ER/911 [] ICC / Express Care [x] Office / PCP Care [] Video / Phone [x] Appointment offered to patient for an evaluation of their clinical concerns [] Patient refused the advised level of care against medical advice to evaluate their clinical concerns Notes: Patient called in HIPAA verified Patient is reporting of: - sore throat -headache -body aches -fatigue Pt has been feeling sick for a few days now and stating she was in [place] recently and was not careful when she was there. Denies: -Fever -cough -sob/ -loss of taste or smell -diarrhea -exposure to known covid or suspected -ear or sinus pain -nasal drainage Advised OV and pt agreed. Pt scheduled with MD and stated she will get tested outside [facility] since appt is not until Friday. Pt verbalize understanding. No actionable items from MD and Nurses as of this moment.. Closing this Encounter. Thank you. Future Appointments Date Time Provider Department Center 06/13/2021 9:45 AM Qian Mathur MD [facility] Caregiver/patient indicated understanding. Locations & Treatable Conditions Colorless [facility] Locations & Conditions Colorless Location & Conditions [facility] Location & Conditions Closed [facility] Care Now: ED (Call 911) [] Speaking in short words with rapid breathing in between words [] Unable to complete a sentence without taking a breath between words [] Severe Wheezing, Unable to take normal breaths due to wheezing [] Severe shortness of breath, unable to catch breath [] Severe, gripping chest tightness or pressure [] Unable to breathe lying down [] Blue / dusky lips, tongue, or face [] Confusion / difficulty thinking / altered mental status [] Diaphoretic and pale [] Stiff unable to move neck associated with fever > 101 [] Unable to swallow saliva [] Swelling of tongue / lips or back of mouth making it difficult to breath [] Choking - patient is unable to speak, cough or breath, or unconscious and not breathing [] Heart Rate > 140 Care Now: Immediate Care ??? Call [facility] Site Nurse for immediate access, site availability and acceptance ??? Must bring a responsible adult wagon driver salesperson with the patient Site Information: Naldo / Marci / Hebert / [place]: NO patients over 65 with the following complaints: Abdominal Pain Flank Pain Repetitive Vomiting Rectal Bleeding/Melena Chest Pain Shortness of Breath Dizziness Severe Weakness or New Onset of Immobility In addition: NO Post-Operative complications except urinary retention NO Confusion or Altered mental Status of any age NO Cancer patients undergoing chemotherapy NO with shortness of breath or chest pain NO Post- chest pain, shortness of breath, or fever NO Eye Trauma NO Facial Laceration under the age of 2 NO Head trauma on anticoagulants NO Syncope or loss of consciousness NO Acute Chest Pain with ROSSY Score > 0 ? ? Score is > 0 if any of the following are present: o Age > 64, known CAD, Aspirin Use in past 7 days, Severe or > 2 episodes/day of Chest Pain o Any of 3 of the following: HTN, Hypercholesterolemia, FMHx of CAD, Current Smoker, age > 45 y/o [] Patient acknowledges that they have a ride which will not leave the [facility] premise as they are being scheduled for one of the following conditions: Headache, Shortness of Breath, Weakness or dizziness, Chest symptoms, Abdominal / Flank symptoms, Vomiting or Diarrhea, Injuries, Patients in their second week of COVID, COVID patients who are high risk or age > 65. Any condition that may affect one's ability to drive. Chest and Abdominal Pain - should not be scheduled within 2 hours of closing. [] New acute shortness of breath with no previous diagnosis of asthma with any of the following [] Heart rate over 100 (new onset) [] Age > 50 [] Active use of estrogen or oral contraceptives [] Coughing up blood [] Pt reports findings suggestive of DVT: Unilateral leg swelling, calf or thigh tenderness [] Immobilization (>=3 days) or surgery in the previous four weeks [] Prior history of DVT or PE [] Active / Recent Cancer [] Immunosuppression from chemotherapy, rheumatologic medications or HIV/AIDS or active cancer [] Temperature > 101 ?? F (38.3 ?? C) in patient > 80 years old Please ask the patient to bring their rescue MDI and spacer to the [facility] as they may be used to assist in reversing an exacerbation of their asthma or COPD. Care Now: Express Care or Immediate Care [] Persistent wheezing and shortness of breath just after a nebulizer or MDI treatment [] Signs of dehydration: no urine for past 8 hours [] Temperature > 103 Please ask the patient to bring their rescue MDI and spacer to the [facility] Care as they may be usedto assist in reversing an exacerbation of their asthma or COPD. PCP Care: ALL OTHER SYMPTOMS - ??? Recommend first available appointment with PCP ??? Patient may be seen later at their request Breathing: [] Mild Shortness of breath [] Mild Shortness of Breath interfering with activities, exercise [] Wheezing [] Mild wheezing interfering with activities, exercise [] Pain increases with deep breathing [] Using rescue inhaler more frequently than prescribed Fever: [] Fever >101 F (38.3 C) [] Fever and age > 65 years [] Fever > 100.4 ?? F (38.0 ?? C) and age < 3 months Cough: [] Tight cough / cough worsened with exertion [] Inability to sleep >1-2 hours due to coughing [] Blood tinged sputum [] Persistent cough [] Cough with yellow/green sputum production [] Cough unresponsive to over the counter cough medications Other Symptoms: [] Chest Congestion with deep breathing or cough [x] Sore throat with significant difficulty swallowing because of pain [] Yellow or white pus in back of throat [] Red or enlarged tonsils [] Sore throat and cough > 2 days [] Colored sputum or colored nasal discharge [] Flu-like symptoms for 24-48 hours during flu season [] Nasal discharge / congestion / sinus pain [] Ear pain / fullness [] Persistent earache, sinus pain, or yellow eye drainage [] Close contact with someone with strep, flu, or other confirmed infectious disease in past 2 weeks Comorbid Conditions: [] History of CHF with increased leg swelling and decreased exercise tolerance ??? Patient should be seen Same Day RYAN, ill visit, SDA visit, if these are not available ICC thenED [] Cancer [] COPD - chronic obstructive pulmonary disease, [] Heart Disease for example, CHF / CAD / heart attack history [] Diabetes [] Kidney disease [] Patient Requesting to be seen and does not qualify for above categories Home Care (Only If Patient refuses assessment via office visit, video visit or e-visit.) ??? Home Care instructions only to be used if patient's symptoms do not trigger referral to ED or ICC ??? Patient/Arts And Sciences Dean instructed on Home Care as listed below and verbally indicated understanding. Patient/Arts And Sciences Dean instructed to call back if symptoms persist or worsen Home care inappropriate for shortness of breath - Patient must be seen Follow home care instructions and call back if no improvement w/in 48hrs to make appt. w/ PCP. 1) Increase fluid (water and clear fluids) 2) Limit exposure to allergens 3) Avoid strenuous exercise 4) Use a vaporizer, steamy bathroom, to help relieve symptoms 5) Use preventative medicine as prescribed - see Asthma Action plan ??? Refer only to ER and ICC when the conditions are met below or state why in the additional note section ? ? In general, if condition > 24 hours and not significantly worsening, patient may be offered an appointment at their PCPs office ??? If workup ongoing for a condition, patient should stay with physician doing work-up documented in this encounter Plan of Treatment Upcoming Encounters Date Type Department Care Team (Late st Contact Info) Description 11/24/2024 1:00 PM FREELANCE PHOTOGRAPHER Procedure Surgical Procedure Visit [phone] Titus Vieyra MD [address] [facility] [address] [place] [address] documented as of this encounter Visit Diagnoses Not on filedocumented in this encounter Additional Health Concerns Assessment Noted Time A fall risk assessment has been complete d for the patient 04/26/2014 7:59 AM CDT documented as of this encounter Care Teams Transmission Repairer Relationship Specialty Start Date End Date Jeison Orozco MD PCP - General 12/25/01 08/12/23 documented as of this encounter
--- OUTSIDE RECORDS SUMMARY | 2024-11-07 07:01 | XMS_ITS | Encounter Summary ---
Author Organization [facility] Address [address] [place] [address] Care Team Providers Care Tire Beader Maker Name Role Phone Jeison Orozco MD Primary Care Provider Unav ailable Reason for Visit * Reason Comments Derm Problem Encounter Details Date Type Department Care Team (Late st Contact Info) Description 01/30/2018 11:30 AM CDT Office Visit Dermatology - [facility] [address] [place] [address] Olinda Mcmanus PA-C [address] [facility] [place], [place] [id number] Inflamed seborrheic keratosis (Primary Dx) Social History Tobacco Use Types [...] encounter Progress Notes * Fay Moseley - 01/30/2018 11:30 AM CDT HPI: Tonya Costello is a 57 year old female. Patient presents with: Derm Problem History: Pt here for spot checks. --Mid back: present many years, very tender --L antecubital: changing in size, raised, pt admits to picking at lesion --L lower leg and L hip: present many years, asymptomatic. Location: back, arms, legs Condition present for: Many years Lesion(s) can be asymptomatic. Severity (Scale 1-mild to 10 severe): Previous treatments include: Personal HX of Skin Cancer: No Personal HX AK's: No Personal HX of Malignant Melanoma: No Family HX of Skin Cancer / Malignant Melanoma: No Other history: No further skin c/o Last Office Visit 2014-- ROS of the following were done and are negative: Constitutional, Eyes, Ears, Nose, Mouth, Throat, Cardiovascular, Respiratory, GI, Genitourinary, Musculoskeletal, Psychiatric, Endocrine, Allergic/Immunologic. PHYSICAL EXAM: Weight: 153 lbs Height: 5'6 A&O X3 Well-developed, well-nourished type 2 skin. Yes back, hands, legs, abdomen checked. Patient deferred exam of breasts, groin, buttocks: Yes Other physical findings: 1. Inflamed, stucco plaques x 3 on left lateral back, x 1 on left calf, x 1 on left abdomen, x 2 onleft forearm, x 1 on left dorsal hand. ASSESSMENT & PLAN: 1. Inflamed Seborrheic Keratoses: [...] not resolved after 4 weeks. Pt understands. No prescriptions requested or ordered in this encounter PATIENT EDUCATION: Skin care reviewed. Sun avoidance, protection and SSE reviewed. Questions answered, Risks/Benefits alternatives discussed w/ patient. Scar, infection, bleeding, pain purpura, recurrence. Pt understands F/U prn Scribed By: Olinda Mcmanus PA-C ID#[id number] documented in this encounter Plan of Treatment Upcoming Encounters Date Type Department Care Team (Late st Contact Info) Description 11/24/2024 1:00 PM MEETING SPECIALIST Procedure Surgical Procedure Visit [phone] Titus Vieyra MD [address] [place] [address] [address] [place] [address] Scheduled Orders Name Type Priority Associated Diagnoses Orde r Schedule DESTRUCTION BENIGN LESIONS, OTHER THAN SKIN PROCEDURES Routine Inflamed seborrheic keratosis Ordered: 01/30/2018 documented as of this encounter Visit Diagnoses Diagnosis Inflamed seborrheic keratosis- Primary documented in this encounter Additional Health Concerns Assessment Noted Time A fall risk assessment has been complete d for the patient 04/26/2014 7:59 AM CDT documented as of this encounter Care Teams Tire Beader Maker Relationship Specialty Start Date End Date Jeison Orozco MD PCP - General 12/25/01 08/12/23 documented as of this encounter
--- OUTSIDE RECORDS SUMMARY | 2024-11-07 07:01 | XMS_ITS | Encounter Summary ---
Author Organization [facility] Address [address] [place] [address] Care Team Providers Care Fiberglass Machine Operator Name Role Phone Jeison Orozco MD Primary Care Provider Unav ailable Reason for Visit * Reason Onset Date Comments Orders Call 12/06/2021 Encounter Details Date Type Department Care Team (Late st Contact Info) Description 12/06/2021 Telephone Internal Medicine - [facility] [address] [facility] [address] [place] [address] Qian Mathur MD [address] [facility] [address] [place], [place] [phone] Orders Call Social History Tobacco Use Types [...] as of this encounter Progress Notes * Bernie Fields - 12/07/2021 2:32 PM CST Future Appointments Date Time Provider Department Center 12/17/2021 10:15 AM Qian Mathur MD CHIKA ALANIS N CHAIN OPERATOR * Qian Mathur MD - 12/07/2021 8:37 AM CST Due for annual wellness visit. Please schedule. N CHAIN OPERATOR * Mounika Ayon - 12/06/2021 4:00 PM CST The patient would like to have an order for a sleep study if possible after 12/17. Please call the patient back as soon as possible. Thank you. N CHAIN OPERATOR documented in this encounter Plan of Treatment Upcoming Encounters Date Type Department Care Team (Late st Contact Info) Description 11/24/2024 1:00 PM GREEN CHAIN OPERATOR Procedure Surgical Procedure Visit [phone] Titus Vieyra MD [address] [place] [address] [address] [place] [address] documented as of this encounter Visit Diagnoses Not on filedocumented in this encounter Additional Health Concerns Assessment Noted Time A fall risk assessment has been complete d for the patient 04/26/2014 7:59 AM CDT documented as of this encounter Care Teams Fiberglass Machine Operator Relationship Specialty Start Date End Date Jeison Orozco MD PCP - General 12/25/01 08/12/23 documented as of this encounter
--- OUTSIDE RECORDS SUMMARY | 2024-11-07 07:01 | XMS_ITS | Encounter Summary ---
Author Organization [facility] Address [address] [place] [address] Care Team Providers Care Plastic Boat Buffer Name Role Phone Jeison Orozco MD Primary Care Provider Unav ailable Reason for Referral * Sleep Study (Routine) - Closed Specialty Diagnoses / Procedures Referred By Delmi zee Referred To Contact Pulmonary Diseases Diagnoses Snoring Hypersomnolence Qian Mathur MD [address] [facility] [address] [place] [address] Referral ID Status Reason Start Date Expiration Date Visits Re quested Visits Authorized [id number] Closed 12/20/2021 10/26/2022 1 1 Scheduling Instructions Your physician has referred you to [facility] for a Sleep Study. Please call one of the locations below to schedule your appointment. The Sleep Centers of [facility]: [address] [facility], [address] [place] [address] [address] [facility], [address] [place] [address] [address], [place] [address] PLEASE NOTE: If you also received an order for a Urine Drug Screen, it will be completed on the DAY OF YOUR PROCEDURE. Please do not complete prior to the visit. For more information about [facility] physicians and locations, visit: [email or web address]. In order to insure proper patient identification, [...] place prior to service, you may call the Utilization Management Department at [phone]. Referrals can take up to two weeks to be approved. IF YOU HAVE PPO INSURANCE COVERAGE If your medical insurance is a PPO, it is the patient's responsibility to confirm that any provider, vendor and/or facility outside of [facility] is in your network. Although your PPO insurance may not require referrals, there are certain procedures (MRI, Nuclear Stress Test, Surgery, etc.) that may require an authorization from your insurance company. As long as the service is being performed at [facility], the [facility] Sleep [facility] staff will obtain the necessary authorization on your behalf. IF YOU HAVE HMO INSURANCE COVERAGE Your insurance requires a referral from your Primary Care Physician. [facility] will obtain authorization from your insurance company for services ordered by your [facility] PCP or [facility] specialist. A referral is not a guarantee of benefit, and we highly recommend that you call your insurance company to verify your coverage MAKING MACHINE OPERATOR * E/M Services (Routine) - Closed Specialty Diagnoses / Procedures Referred By Delmi zee Referred To Contact Cardiology Diagnoses Atrial fibrillation, unspecified type (HCC) Qian Mathur MD [address] [facility] [address] [place] [address] Referral ID Status Reason Start Date Expiration Date Visits Re quested Visits Authorized [id number] Closed 12/17/2021 12/17/2022 6 6 Scheduling Instructions Your physician has referred you to a [facility] Cook Fry. Please call one of the locations listed below to schedule your appointment. [address], [address] [place] - [address] [facility], [place] - [address], [address], [place] - [address], [place] - [address], [place] - [address], [address], [place] ([place] - [address] [facility], [address], [place] - [address] [facility], [address], [facility]): [address], [place] ([facility]) - [address] [facility], [facility], [address] [place]- [address], [address], [facility] [address] [facility], ext:[address] [place] [address] [place] ([facility]) - [address] , [address], Patient instructions can be obtained by calling the Cardiology location you're scheduled at or you can access them on the [facility] website at: [email or web address] [email or web address].[email or web address] For more information about [facility] physicians and locations, visit: [email or web address].[employer] In order to insure proper patient identification, [...] office or the Utilization Management Department at [phone], seventy-two (72) hours after the order is placed. Referrals can not be entered retrospectively. IF YOU HAVE PPO INSURANCE COVERAGE If your medical insurance is a PPO, it is the patient's responsibility to confirm that any provider, vendor and/or facility outside of [facility] is in your network. Although your PPO insurance may not require referrals, there are certain procedures (MRI, Nuclear Stress Test, Surgery, etc.) that may require an authorization from your insurance company. As long as the service is being performed at [facility], the [facility] UM staff will obtain the necessary authorization on your behalf. IF YOU HAVE HMO INSURANCE COVERAGE Your insurance requires a referral from your Primary Care Physician. [facility] will obtain authorization from your insurance company for services ordered by your [facility] PCP or [facility] specialist. A referral is not a guarantee of benefit, and we highly recommend that you call your insurance company to verify your coverage MAKING MACHINE OPERATOR Reason for Visit * Reason Comments Physical Encounter Details Date Type Department Care Team (Late st Contact Info) Description 12/17/2021 10:15 AM CASE MAKING MACHINE OPERATOR Office Visit Internal Medicine - [facility] [address] [facility] [address] [place] [address] Qian Mathur MD [address] [facility] [address] [place] [address] Routine general medical examination at a health care facility (Primary Dx); Dyslipidemia; Atrial fibrillation, unspecified type (HCC); Insomnia, unspecified type; Snoring; Hypersomnolence; Right hip pain Social History Tobacco Use [...] Sign Reading Time Taken Comments Blood Pressure 120/78 12/17/2021 10:12 AM CASE MAKING MACHINE OPERATOR Pulse 72 12/17/2021 10:12 AM CASE MAKING MACHINE OPERATOR Temperature 36.3 ??C (97.4 ??F) 12/17/2021 10:[address] Respiratory Rate - - Oxygen Saturation 98% 12/17/2021 10:12 AM CASE MAKING MACHINE OPERATOR Inhaled Oxygen Concentration - - Weight 68 kg (150 lb) 12/17/2021 10:12 AM CASE MAKING MACHINE OPERATOR Height 167.6 cm (5' 6 ) 12/17/2021 10:12 AM CASE MAKING MACHINE OPERATOR Body Mass Index 24.21 12/17/2021 10:12 AM CASE MAKING MACHINE OPERATOR documented in this encounter Functional Status Functional Status Response Date of Assess ment Hearing Problems? No 12/17/2021 Vision Problems? No 12/17/2021 Difficulty walking? No 12/17/2021 Difficulty dressing or bathing? No 12/17/2021 Problems with daily activities? No 12/17/2021 Cognitive Status Response Date of Assessm ent Memory Problems? No 12/17/2021 documented as of this encounter Progress Notes * Qian Mathur MD - 12/17/2021 10:15 AM CST Tonya Costello is a 61 year old female. Patient presents with: Physical She had labs w/ gyne AF s/p ablation She no longer seeing cardiol occ feels she is in AF Notes snoring. occ hypersomnolence She takes ambien 5mg when she flies and on very rare occasion She takes about once a month telegrapher agent She notes R outer hip pain when laying on R side No preceding injury. Takes turmeric ROS OUTLINED ABOVE. OTHERWISE REVIEWED ACROSS 10 CATEGORIES AND NEGATIVE HISTORY: Past Medical History: Diagnosis Date ??? [...] polyp at tattoo site at 40 cm History reviewed. No pertinent family history. Social History Tobacco Use Smoking status: Former [...] mouth. ??? TURMERIC OR Take by mouth. ALLERGIES: Penicillins RASH Immunization History Administered Date(s) Administered FLUZONE 6 months and older PFS 0.5 ml (47019) 08/04/2020 08/09/2021 HEP A/HEP B Combined 02/25/2011 03/29/2011 10/15/2011 TDAP 02/25/2011 PE Blood pressure 120/78, pulse 72, temperature 97.4 ??F (36.3 ??C), height 5' 6 (1.676 m), weight 150 lb (68 kg), SpO2 98 %. Body mass index is 24.21 kg/m??. Genl: NAD HEENT: ears NL b/l Neck: no LAD Lungs CTA b/l CV RRR. No murmur Abd Soft NTND Extr: no c/c/e. Tender to palp R outer hip Neuro: no focal deficits Skin: no rashes ASSESSMENT AND PLAN: 1. Snoring, hypersomnolence Referral placed for sleep/STAR evaluation. Absolutely no driving when sleepy, avoid sedatives/ETOH ambien refilled for insomnia - she uses sparingly and appropriately 2. R hip pain, possible bursitis Xray(s) as ordered Rest, ice, OTC analgesics (tylenol, NSAIDs) 3. Health Maintenance - Discussed healthy diet, regular exercise, drink plenty of fluids. Discussedsunscreen w/ minimum SPF 30. Wear seat belts Labs as ordered. Contact pt w/ results She had pap/mammo w/ her gyne 10/2021 - she will try to obtain records See orders After visit summary given to pt The patient indicates understanding of these issues and agrees to the plan. All of pt's ?s were answered today No follow-ups on file. MAKING MACHINE OPERATOR documented in this encounter Plan of Treatment Upcoming Encounters Date Type Department Care Team (Late st Contact Info) Description 11/24/2024 1:00 PM CASE MAKING MACHINE OPERATOR Procedure Surgical Procedure Visit [phone] Titus Vieyra MD [address] [facility] [address] [place] [address] Scheduled Orders Name Type Priority Associated Diagnoses Orde r Schedule OFFICE/OUTPT VISIT,EST,LEVL III PROCEDURES Routine Atrial fibrillation, unspecified type (HCC) Insomnia, unspecified type Snoring Hypersomnolence Right hip pain Ordered: 12/17/2021 Scheduled Referrals Name Type Priority Associated Diagnoses Orde r Schedule CARDIOLOGY EVAL & TREAT ([facility]) Referral Routine Atrial fibrillation, unspecified type (HCC) Ordered: 12/17/2021 DIAG POLYSOMNOGRAM, SLEEP MED ([facility]) Referral Routine Snoring Hypersomnolence Expected: 12/24/2021, Expires: 12/17/2022 documented as of this encounter Procedures Procedure Name Priority Date/Time Associated Diagnosis Comments PERIODIC PREVENTIVE MED EST PATIENT 40-64YRS Routine 12/17/2021 10:26 AM CASE MAKING MACHINE OPERATOR Routine general medical examination at a health care facility documented in this encounter Results * LIPID PANEL (02/05/2022 8:31 AM CDT) Patient Fasting? Yes 02/06/20 11:23 AM CDT [facility] Triglycerides 44.00 <=150.00 mg/dL 02/05/2022 11:23 AM CDT [facility] Direct HDL 66 >=40 mg/dL 02/05/2022 11:23 AM CDT [facility] Comment:Guidelines for high density lipoprotein (HDL) are adapted from the National Cholesterol Education Program (NCEP).Values >=40 mg/dL are considered a negative risk factor for coronary heart disease (CHD) and are considered protective. Risk Factor 2.6 <5.0 02/05/2022 11:23 AM CDT [facility] Cholesterol 169.00 <=200.00 mg/dL 02/05/2022 11:23 AM CDT [facility] Calculated LDL 94 <=130 mg/dL 02/05/2022 11:23 AM CDT [facility] Total Chol/HDL Ratio 3 0.0 - 4.5 ratio 02/05/2022 11:23 AM CDT [facility] Calculated VLDL 9 <=30 mg/dL 02/05/2022 11:23 AM CDT [facility] Blood Venipuncture / Unknown 02/05/2022 8:31 AM CDT 02/05/2022 8:31 AM CDT Qian Mathur MD LAB BLOOD ORDERABLE S [facility] [address] [facility] [address] [phone] * BASIC METABOLIC PANEL (8) (02/05/2022 8:31 AM CDT) Patient Fasting? Yes 02/05/2022 11:23 AM CDT [facility] Sodium 143 136 - 145 mmol/L 02/05/2022 11:23 AM CDT [facility] Potassium 4.43 3.50 - 5.10 mmol/L 02/05/2022 11:23 AM CDT [facility] Chloride 104 98 - 107 mmol/L 02/05/2022 11:23 AM CDT [facility] Carbon Dioxide 24.9 22.0 - 29.0 mmol/L 02/05/2022 11:23 AM CDT [facility] Blood Urea Nitrogen 13.0 6.0 - 20.0 mg/dL 02/05/2022 11:23 AM CDT [facility] Creatinine 0.66 0.50 - 0.90 mg/dL 02/05/2022 11:23 AM CDT [facility] BUN/CREAT Ratio 20.0 10.0 - 20.0 02/05/2022 11:23 AM CDT [facility] Glucose 99 74 - 109 mg/dL 02/05/2022 11:23 AM CDT [facility] Calcium 9.7 8.6 - 10.3 mg/dL 02/05/2022 11:23 AM CDT [facility] GFR CKD-EPI 94.31 >=60.00 mL/min/1.7 3 m?? 02/05/2022 11:23 AM CDT [facility] Comment: Estimated GFR units: mL/min/1.73 square meters eGFR calculated by the CKD-EPI equation. Blood Venipuncture / Unknown 02/05/2022 8:31 AM CDT 02/05/2022 8:31 AM CDT Qian Mathur MD LAB BLOOD ORDERABLE S [facility] [address] [place] [address] * XR HIP W OR WO PELVIS 2 OR 3 VIEWS, RIGHT (FCK=[id number]) (12/17/2021 10:48 AM CASE MAKING MACHINE OPERATOR) Anatomical Region Laterality Modality Hip Right Computed Radiogr aphy 12/17/2021 11:0 6 AM CASE MAKING MACHINE OPERATOR Impressions 12/17/2021 11:07 AM CASE MAKING MACHINE OPERATOR IMPRESSION: Unremarkable radiographic appearance of the right hip. Narrative 12/17/2021 11:07 AM CASE MAKING MACHINE OPERATOR DATE OF SERVICE: 12.17.2021 RIGHT HIP, FRONTAL/NEUTRAL AND EXTERNAL ROTATION (2 VIEWS) CLINICAL INFORMATION: ??Right hip pain. COMPARISON: None. FINDINGS There is no evidence for fractures or dislocations. No significant arthritic changes are identified. The joint space is grossly intact. The iliopectineal and ilioischial lines are not disrupted. The right pubic rami are grossly intact. Procedure Note Dilip aSn DO - 12/17/2021 DATE OF SERVICE: 12.17.2021 [...] examination at a health care facility- Primary Dyslipidemia Other and unspecified hyperlipidemia Atrial fibrillation, unspecified type (HCC) Insomnia, unspecified type Snoring Other dyspnea and respiratory abnormality Hypersomnolence Hypersomnia, unspecified Right hip pain Pain in joint, pelvic region and thigh Right hip pain Pain in joint, pelvic region and thigh documented in this encounter Additional Health Concerns Assessment Noted Time A fall risk assessment has been complete d for the patient 04/26/2014 7:59 AM CDT documented as of this encounter Care Teams Plastic Boat Buffer Relationship Specialty Start Date End Date Jeison Orozco MD PCP - General 12/25/01 08/12/23 documented as of this encounter
--- OUTSIDE RECORDS SUMMARY | 2024-11-07 07:01 | XMS_ITS | Encounter Summary ---
Author Organization [facility] Address [address] [place] [address] Care Team Providers Care Condenser Tester Name Role Phone Jeison Orozco MD Primary Care Provider Unav ailable Reason for Visit * Reason Onset Date Comments Test Results 01/25/2022 Encounter Details Date Type Department Care Team (Late st Contact Info) Description 01/25/2022 Telephone Pulmonary - [facility] [address] [facility] [address] [place] [address] Delmis Burgos RN [address] [facility] [address] [place], [place] [id number] Test Results Social History Tobacco Use Types [...] as of this encounter Progress Notes * Delmis Burgos RN - 01/25/2022 1:10 PM CDT Lm for pt, per pt consent, regarding results of DX sleep study AHI 14 Patient stated understanding of results Patient study is consistent with STAR Patient recommended to CPAP therapy Pt is a direct referral and a consult is needed. Pt advised to call scheduling to arrange sleep consult documented in this encounter Plan of Treatment Upcoming Encounters Date Type Department Care Team (Late st Contact Info) Description 11/24/2024 1:00 PM ROCKET PROPELLANT PLANT SUPERVISOR Procedure Surgical Procedure Visit [phone] Titus Vieyra MD [address] [place] [address] [address] [place] [address] documented as of this encounter Visit Diagnoses Not on filedocumented in this encounter Additional Health Concerns Assessment Noted Time A fall risk assessment has been complete d for the patient 04/26/2014 7:59 AM CDT documented as of this encounter Care Teams Condenser Tester Relationship Specialty Start Date End Date Jeison Orozco MD PCP - General 12/25/01 08/12/23 documented as of this encounter
--- OUTSIDE RECORDS SUMMARY | 2024-11-07 07:01 | XMS_ITS | Encounter Summary ---
Author Organization [facility] Address [address] [place] [id number] Care Team Providers Care Hat Conditioner Name Role Phone Jeison Orozco MD Primary Care Provider Unav ailable Reason for Visit * Reason Onset Date Comments Triage 01/04/2020 Encounter Details Date Type Department Care Team (Late st Contact Info) Description 01/04/2020 Telephone Internal Medicine - [facility] [address] [facility] [address] [place], [place] [id number] Jeison Orozco MD Triage Social History Tobacco [...] as of this encounter Progress Notes * Svetlana Buck RN - 01/04/2020 3:19 PM CDT Patient calling with c/o right ear and sinus pain. Had lump in ear for two weeks felt something running out of ear 3 days ago. Put tissue on ear and lots of blood. Thought what ever was in there drained Onset 3 days ago popped Ever since felt like ear is being tugged on Also sinus feels congested on right side No fever/chills ADULT TRIAGE BUILD - Pulmonary / Respiratory Problems Protocol / Cough / Sore Throat / Colds / URI / COVID [x] Appointment offered to patient for an evaluation of their clinical concerns. [] Patient refused the advised level of care against medical advice to evaluate their clinical concerns. [] Other / COVID - see information below Standard Triage Disposition: [] ER/911 [] ICC / Express Care [x] Office / PCP Care COVID-19 Disposition: [] Paged Dr. Ohara [] [facility] facility (e-visit/ office visit/ ICC) [] Home Care / Quarantine advice Notes: Patient advised to call back with any new or worsening symptoms. Caregiver/patient indicated understanding. COVID-19 [] Persistent wheezing and shortness of breath with fever or flu like illness that would require nebulizer treatment NO WHEEZING REQUIRING NEBS TO BE SENT TO [facility] FACILITIES [] Send to [facility] office / ICC or offer e-visit if the patient meets at least one the following criteria: - Persistent wheezing and shortness of breath just after a nebulizer or MDI treatment, not positivefor screening criteria below (move to protocol criteria below and triage) - Patient is not wheezing, but requiring nebulizer treatments, not positive for screening criteria below (move to protocol criteria below and triage) - Patient traveled within the [place], does not have specified screening symptoms listed below; may require note to return to work documentation (home care is appropriate) - Patient traveled within the [place], reports sinus congestion, cough, low grade fever [id number] (recommended e-visit or home care) - Patient has not traveled, reports sinus congestion, cough, low grade fever under 100.4 (move to protocol material below and triage) - Patient had contact with a person of interest, person of interest was confirmed to be NEGATIVE for COVID through proper testing (appropriate for office visit, e-visit, or home care) [] Patient reports any of the following, please page Dr. Ohara IMMEDIATELY at [phone]: - Fever of 100.4 or greater with a cough, shortness of breath AND they have traveled to [place], [place], [place], [place] or [place] - Fever of 100.4 or greater with a cough, shortness of breath AND -contact with an individual who is confirmed to have been infected with COVID-19 -contact with a person who is currently under investigation for possible infection with COVID-19 Quarantine Advice Per our Infectious Disease Dr. Gala Ohara, individuals who have studied abroad will have been provided with the following public health guidance prior to returning to the [place]: - To self-quarantine for 14 days (please reinforce respiratory etiquette tips per CDC) - To return to their parents' home or individual apartments- not dorms or public living areas - To avoid congregate settings, limit public activities and practice social distancing - To monitor for symptoms of COVID-19 (fever, cough or shortness of breath) Respiratory Etiquette / Home Care - Stress the importance of proper hand hygiene - Stress the importance of coughing into your arm or a tissue - Avoid contact with others if you have symptoms of an upper or lower URI - Avoid contact with others who are ill - Disinfect surfaces with appropriate materials - Monitor symptoms, and call if they become severe (shortness of breath at rest or with activity, fever, chest congestion, productive cough) Resource Site http://[facility]/Departments/[email or web address]-management/teamsite/SitePages/Covid-19.aspx Care Now: ED (Call 911) [] Speaking [...] 140 Care Now: Immediate Care ??? Call [facility] Site Nurse for immediate access, site availability and acceptance ??? Must bring a responsible adult hazardous materials tanker driver with the patient [] New acute shortness of breath with [...] C) in patient > 80 years old Care Now: Express Care or Immediate Care [] Persistent wheezing and shortness of breath just after a nebulizer or MDI treatment [] Signs of dehydration: no urine for past 8 hours [] Temperature > 103 PCP Care: ALL OTHER SYMPTOMS - ??? Recommend first available appointment with PCP ??? Patient may be seen later at their request ? ? S[facility]/Express Care if patient requesting to be seen today & PCP cannot accommodate Breathing: [] Mild Shortness of breath [] [...] Chest Congestion with deep breathing or cough [] Sore throat with significant difficulty swallowing because of pain [] Yellow or white pus in back of throat [] Red or enlarged tonsils [] Sore throat and cough > 2 days [] Colored sputum or colored nasal discharge [] Flu-like symptoms for 24-48 hours during flu season [] Nasal discharge / congestion / sinus pain [x] Ear pain / fullness [x] Persistent earache, sinus pain, or yellow eye [...] trigger referral to ED or ICC ??? Patient/Business Area Director instructed on Home Care as listed below and verbally indicated understanding. Patient/Business Area Director instructed to call back if symptoms persist or worsen Home care inappropriate for shortness of breath - Patient must be seen Follow home care instructions and call back if no improvement w/in 48 hrs to make appt. w/ PCP. 1) Increase [...] Contact Info) Description 11/24/2024 1:00 PM NURSE LIAISON Procedure Surgical Procedure Visit [phone] Titus Vieyra MD [address] [place] [address] [address] [place], [place] [id number] documented as of this encounter Visit Diagnoses Not on filedocumented in this encounter Additional Health Concerns Assessment Noted Time A fall risk assessment has been complete d for the patient 04/26/2014 7:59 AM CDT documented as of this encounter Care Teams Hat Conditioner Relationship Specialty Start Date End Date Jeison Orozco MD PCP - General 12/25/01 08/12/23 documented as of this encounter
--- OUTSIDE RECORDS SUMMARY | 2024-11-07 07:01 | XMS_ITS | Encounter Summary ---
Author Organization [facility] Address [address] [place] [address] Care Team Providers Care Sprinkler Driver Name Role Phone Jeison Orozco MD Primary Care Provider Unav ailable Reason for Visit * Reason Onset Date Comments Triage 05/02/2020 Encounter Details Date Type Department Care Team (Late st Contact Info) Description 05/02/2020 Telephone Internal Medicine - [facility] [address] [facility] [address] [place], [place] [id number] Jeison Orozco MD Triage Social History Tobacco [...] as of this encounter Progress Notes * Su Jones RN - 05/02/2020 8:52 PM CDT Order placed by & My Chart sent. * Ashkan Orozco - 05/02/2020 5:00 PM CDT Order signed -- may need to go to red site ?? * Su Jones RN - 05/02/2020 4:28 PM CDT ADULT TRIAGE BUILD - Pulmonary / Respiratory Problems Protocol / Cough / Sore Throat / Colds / URI COVID Header for Triage Protocols [] Appointment offered to patient for an evaluation of their clinical concerns. [] Patient refused the advised level of care against medical advice to evaluate their clinical concerns. [x] Other / COVID / Respiratory Red Site - see information below Triage Disposition: [] ER/911 [] ICC / Express Care [] Office / PCP Care [] Red Site [] Green Site [x] Video / Phone [] Home Care / Quarantine advice Notes: Pt called. C/O mild/dull headache. Some chills & fatigue. No GI symptoms or other symptoms. No travel or exposures. Would like to err on the side of caution & obtain COVID swab. No availability in clinic today for phone or VV. 1) Pt asks if PCP can enter order for swab in AM rather than awaiting appt? Order pended if appropriate. Home care, Swab Site info sent via My Chart. OK for My Chart. COVID-19 Screening Criteria ? ? *Covid-19 Symptoms: Symptoms are NEW Onset < 14 days ??? Cough ??? Fever ??? Chills ??? Runny nose ??? *Sore throat* ??? Conjunctivitis ??? URI symptoms - cough ??? Lower Respiratory Symptoms, productive cough, chest tightness, wheezing ??? *Shortness of breath* ??? Muscle / Body aches ??? Diarrhea ??? *Headache, new onset or different from prior headache from head injury or migraines* ??? Loss of Smell and or Taste ? ? Individuals > 65 may have a low body temperature, weakness, lethargy, hypotension, falls/syncope, confusion. ??? Confirmed COVID Exposure within the last 21 days ??? *Refer to a PCP Video Visit or ICC Triage Line for the following: * ??? Isolated symptom that is - not associated with other COVID symptoms - consistent with prior diagnosed conditions, migraine, head injury, season allergies - patient states symptoms are known to be associated with a non-COVID diagnosis ICC Triage Line: Extensions: [id number] and [id number]. PCP Video Visits [see PCP schedule] >>> PCP Phone >> Pool Video [7a-9 / ] [] Send patient to the ER to be nebulized in a negative pressure room if the following is present: -Persistent wheezing and shortness of breath with fever or flu-like illness that would require a nebulizer treatment ??? Do not send any patient who reports wheezing accompanied with a fever and / or flu-like illnessthat may require a nebulizer treatment to a [facility] Facility at this time ??? Straight forward asthma exacerbations with NO fever and or flu-like illness may be sent to [facility] facilities COVID PHONE SCREENING - DISPOSITON CATEGORIES: Patient Isolation Advice: ??? Those with mild symptoms who are presumed to have a mild case of COVID should stay home for 10 days from symptom onset and at least 72 hours fever free, however testing based strategy preferred ?? direct patient to visit per below for testing order according to their symptomatology ??? Those who have had high risk close contact with a COVID+ should observe a 14-day quarantine. ??? If symptoms worsen, instruct patient to call back ??? Contacts of Asymptomatic People Exposed to COVID-19: ??? CDC does not recommend testing, symptom monitoring or special management for people exposed to asymptomatic people with potential exposures to SARS-CoV-2 (such as in a household), i.e., ???contacts of contacts;?? these people are not considered exposed to SARS-CoV-2. https://www.cdc.gov/coronavirus/2019-ncov/hcp/xpumumyj-vndcktsf-babqasktue-patie nts.html Red Sites: ? ? All patients with ANY COVID-19 Symptoms, and / or Temps > 100.4 or Chills within the past 7 days, unless is COVID negative and has not had any new symptoms or exposures ??? OR ??? Patient has been seen at a [facility] for a clinical reason within the past 28 days and was not returned to [facility] at the time of the [facility] Visit or via the [facility] Protocol ??? OR ??? ER in past 28 days for COVID / COVID-like symptoms Respiratory Symptoms < 14 days Instruct patient to wear a mask as soon as they present ??? Confirmed COVID exposures must go to a [facility] if they want to be seen ??? Confirmed exposure with mild symptoms, Pt should self-quarantine, call if symptoms worsen ??? LRTI Symptoms: ??? Cough with Fever, Severe Cough, Sensation of Chest Tightness, Sensation of Shortness of breath ??? No audible wheezing on phone / No difficulty completing sentences to be seen at PCP [facility] ??? PLEASE GUIDE THE PATIENT TO ONE OF THE 7 DISPOSITIONS BELOW: ? ? Visit Hierarchy: PCP Office >>>> PCP Video [see PCP schedule] >>> PCP Phone >> Pool Video [7a-9p M-F / 8 - 4 Wknd} > E-Visit 1. [] Video Visit (CNT may schedule) 2. [] Phone visit with PCP (CNT may schedule) 3. [] E-visit (CNT may offer this option; patient will log onto [facility] to schedule it themselves) 4. [] PCP RED [facility] ??? Cough with Fever, Severe Cough, Sensation of Chest Tightness, Sensation of Shortness of breath ??? No audible wheezing on phone / No difficulty completing sentences to be seen at PCP [facility] ??? Initial COVID Evaluations that are not dehydrated ??? Follow-up visits from a previous PCP [facility], [facility], [facility] ??? Hospital Discharges sent to [facility] 5. [] Express Care [facility] ??? Symptoms of above plus the additional symptoms of: ??? Symptoms of dehydration due to fever that cannot be treated at home; need for IV fluids ??? for example: dizziness with position change, decreased urine output 6. [] ICC [facility] ??? Symptoms of above plus the additional symptoms of: ??? Symptoms of dehydration due to fever that cannot be treated at home; need for IV fluids ??? for example: dizziness with position change, decreased urine output ??? [facility] for evaluation for oximetry assessment or x-ray may be indicated (not nebulizing treatments) ??? No long-term oxygen treatment available ??? Disposition patients with the below conditions to the [facility] over Express Care / PCP red site: ??? Chronic lung disease, moderate to severe asthma (not an acute attack) ??? Serious heart conditions ? ? BMI > 40 ??? Diabetes ??? Dialysis ??? Immunocompromised: ??? undergoing CA treatment, s/p transplants, immune deficiencies, poorly controlled HIV/AIDS, immunosuppressant agents such as steroids & rheumatology medications 7. [] ER if respiratory status indicates that nebulizing treatments may be needed. ??? Severe symptoms: moderate to severe chest pain, moderate to severe SOB, weakness, lethargy, drowsiness, or dizziness, patients' days 8,9,10 into the infection that are worsening ??? Persistent pain or pressure in the chest ??? New confusion or inability to arouse ??? Bluish lips or face ? ? < 6 months with any degree of ??? SOB, Wheezing ??? Weakness / Lethargy ??? https://www.cdc.gov/coronavirus/2019-ncov/symptoms-testing/symptoms.html [] Telehealth: Video Visits / Phone Visits ? ? Visit Hierarchy: PCP Office >>>> PCP Video [see PCP schedule] >>> PCP Phone >> Pool Video [7a-9p M-F / 8 - 4 Wknd] > E-Visit ??? Sub-Acute Respiratory Conditions, Chronic 3+ Weeks of symptoms, Exacerbations of Chronic Conditions ??? Other straight forward conditions with Fever (chills): ??? CNT to schedule ??? Examples: ??? Sore Throat ??? Allergy Symptoms (cough, congestion, sinusitis, nasal congestion) ??? Mild COPD / Asthma exacerbations ??? Ear pain / infection ??? Cystic Fibrosis exacerbation ??? UTI ??? Cellulitis [] Green Sites ???Safe Sites?? : ??? Please request Patient to present with their mouth and nose covered with a mask, scarf, or the like ??? All other Non-Respiratory, Non-Febrile Complaints ??? With any questions please consult with a Provider ? ? Visit Hierarchy: PCP Office >>>> PCP Video [see PCP schedule] >>> PCP Phone >> Pool Video [7a-9p M-F / 8 - 4 Wknd] > E-Visit ??? CNT to schedule ? ? Social distancing will be practiced at [facility], Staff & Providers will wear procedure masks ??? Examples: ??? Physicals / RHM (Routine Health Maintenance ??? GERD ??? Joint pain ??? High Blood Pressure ??? High Cholesterol ??? Asthma / COPD check-ups ??? Allergies check up ? ? Cough > 14 days ??? Excluded: Send to [facility]: ??? Patient has been seen at a [facility] for a clinical reason within the past 28 days and was not returned to [facility] at the time of the [facility] Visit or via the [facility] to [facility] Protocol ??? OR ??? ER in past 28 days for COVID / COVID-like symptoms Care Now: ED (Call 911) [] Speaking [...] 140 Care Now: Immediate Care ??? Call [facility] Site Nurse for immediate access, site availability and acceptance ??? Must bring a responsible adult ross carrier driver with the patient [facility] from 8 AM to 10 AM, Friday - Friday: only staffed by PA's: Please avoid sending patients > 65 years old with bad injuries, chest pain, weakness & falls [] New acute shortness of breath with [...] Care Now: Express Care or Immediate Care [facility] from 8 AM to 10 AM, Friday - Friday: only staffed by PA's: Please avoid sending patients > 65 years old with bad injuries, chest pain, weakness & falls [] Persistent wheezing and shortness of breath [...] trigger referral to ED or ICC ??? Patient/Leaf Stripper instructed on Home Care as listed below and verbally indicated understanding. Patient/Leaf Stripper instructed to call back if symptoms persist [...] st Contact Info) Description 11/24/2024 1:00 PM PERFORATOR OPERATOR Procedure Surgical Procedure Visit [phone] Titus Vieyra MD [address] [facility] [address] [place] [address] Scheduled Orders Name Type Priority Associated Diagnoses Orde r Schedule 2019 NOVEL CORONAVIRUS (COVID-19), PCR DMG Microbiology Routine Special screening examination for unspecified viral disease Expected: 05/02/2020 (Approximate), Expires: 05/02/2021 documented as of this encounter Visit Diagnoses Diagnosis Special screening examination for unspecified viral disease- Primary documented in this encounter Additional Health Concerns Assessment Noted Time A fall risk assessment has been complete d for the patient 04/26/2014 7:59 AM CDT documented as of this encounter Care Teams Sprinkler Driver Relationship Specialty Start Date End Date Jeison Orozco MD PCP - General 12/25/01 08/12/23 documented as of this encounter
--- OUTSIDE RECORDS SUMMARY | 2024-11-07 07:01 | XMS_ITS | Encounter Summary ---
Author Organization [facility] Address [address] [place] [address] Care Team Providers Care Collection Clerk Name Role Phone Jeison Orozco MD Primary Care Provider Unav ailable Reason for Visit * Reason Comments Wrist Pain L wrist. Xray taken @ [facility] 03/06/19. 03/06/19 she tripped over gas hose and put all weight on her wrist when she fell. she was out of town when it happened, went to ER and had xrays but didn't see fracture. had a hard time moving after injury. was given mold but took off 3 days later. currently now wrist feels better, movement is easier but some activities still difficult. putting on seatbelt, moving blanket and hooking bra still difficult. no prev injury she is aware of, she Other did fall ice skating but this was years ago. R handed. was alternating tylenol, ibuprofen and icing but not doing routinely now. Encounter Details Date Type Department Care Team (Late st Contact Info) Description 03/18/2019 8:45 AM CDT Office Visit Orthopaedics - [place] [address] [place] [phone] Roger Gonzalez MD [address] [place] [address] Sprain of left wrist, initial encounter (Primary Dx) Social History Tobacco [...] as of this encounter Progress Notes * Roger Gonzalez MD - 03/18/2019 8:45 AM CDT Chief complaint is left wrist pain. History of present illness: Patient is a 58-year-old who states that a week and a half ago she tripped and fell. She injured her left wrist. She was having swelling and bruising. She went to the ER and had x-rays done. They were negative. She was placed in a posterior mold. 3 days. She is continuedto have soreness. She denies any neurologic symptoms. Her history form was completed and reviewed. On physical exam she is alert and oriented x3 no acute distress. On examination left upper extremity she has minimal swelling the wrist. She has mild tenderness dorsally. There is mild tenderness in the snuffbox. She has limited extension and flexion secondary to pain. No pain with pronation and supination. Skin is intact. She is neurovascular intact X-rays were reviewed and are normal. X-ray today with navicular views are normal. Assessment: Left wrist sprain. Plan: We discussed treatment options. I recommended she wear a wrist brace part- time for the next 2weeks. If she is not seeing improvement at that point she should follow-up with me, otherwise as needed. documented in this encounter Plan of Treatment Upcoming Encounters Date Type Department Care Team (Late st Contact Info) Description 11/24/2024 1:00 PM ASSEMBLER FOR PULLER OVER HAND Procedure Surgical Procedure Visit [phone] Titus Vieyra MD [address] [facility] [address] [place] [address] Scheduled Orders Name Type Priority Associated Diagnoses Orde r Schedule OFFICE/OUTPT VISIT,NEW,LEVL III PROCEDURES Routine Sprain of left wrist, initial encounter Ordered: 03/18/2019 documented as of this encounter Results * XR WRIST NAVICULAR COMPLETE (4 VIEWS), LEFT ([id number]=[id number]) (03/18/2019 9:11 AM CDT) Anatomical Region Laterality Modality Upper body Left Computed Radiogr aphy Narrative 03/18/2019 4:50 PM CDT X-rays AP, oblique, navicular and lateral: No evidence of any fracture or dislocation. ??Bony alignment is within normal limits. Roger Gonzalez MD RIS XRAY documented in this encounter Visit Diagnoses Diagnosis Sprain of left wrist, initial encounter- Primary Sprain of left wrist, initial encounter documented in this encounter Additional Health Concerns Assessment Noted Time A fall risk assessment has been complete d for the patient 04/26/2014 7:59 AM CDT documented as of this encounter Care Teams Collection Clerk Relationship Specialty Start Date End Date Jeison Orozco MD PCP - General 12/25/01 08/12/23 documented as of this encounter
--- OUTSIDE RECORDS SUMMARY | 2024-11-07 07:01 | XMS_ITS | Encounter Summary ---
Author Organization [facility] Address [address] [place] [address] Care Team Providers Care Groundskeeper Porter Name Role Phone Jeison Orozco MD Primary Care Provider Unav ailable Reason for Visit * Reason Comments Derm Problem Encounter Details Date Type Department Care Team (Late st Contact Info) Description 04/14/2020 10:00 AM CDT Office Visit Dermatology - [address] [address] Trish Medina PA-C [address] [facility] FLO[facility] [address] [place], [place] [id number] Inflamed seborrheic keratosis (Primary Dx); Seborrheic keratosis; Intrinsic atopic dermatitis Social History Tobacco Use Types Packs/Day Years [...] have Coronavirus / COVID-19? No / Unsure 04/12/2020 8:13 AM CDT documented as of this encounter Functional Status Functional Status Response Date of Assess ment Hearing Problems? No 12/28/2018 Vision Problems? No 12/28/2018 Difficulty walking? No 12/28/2018 Difficulty dressing or bathing? No 12/28/2018 Problems with daily activities? No 12/28/2018 Cognitive Status Response Date of Assessm ent Memory Problems? No 12/28/2018 documented as of this encounter Progress Notes * Komal Bridget, MA - 04/14/2020 10:00 AM CDT HPI: Tonya Costello is a 59 year old female. Patient presents with: Derm Problem History: Pt presents for spots to be checked. Pt states spot on right cheek has been present for 1 month. Pt states spot is rough and hard. Gets really irritated and itchy. Can be bothered when putting on mask that she must wear d/t covid-19 pandemic Pt states spot on left forearm has been present for 1 year. Pt states spot is raised. Pt states skin tag on right upper abdomen has been present for many months. Pt states skin tag doesget irritated by clothing. Pt also states constant itching on lower back. Pt states currently using otc lotion qd. Personal HX of Skin Cancer: No Personal HX AK's: No Personal HX of Malignant Melanoma: No Family HX of Skin Cancer / Malignant Melanoma: No Other history: No further skin c/o Last Office Visit: 12/23/18 ROS of the following were done and are negative: Constitutional, Eyes, Ears, Nose, Mouth, Throat, Cardiovascular, Respiratory, GI, Genitourinary, Musculoskeletal, Psychiatric, Endocrine, Allergic/Immunologic. PHYSICAL EXAM: Weight: 153 lbs Height: 5'6 RR: 14 Skin exam performed as follows: Type 2 skin. Mood appropriate Alert and Oriented X 3. Well developed, well nourished in no distress. 1. L volar forearm with thin waxy tracy plaque 2. Inflamed keratotic papules of the R preauricular cheek and R abdomen. 3. Medial lumbar and sacral back with mild inflammation and scale. ASSESSMENT & PLAN: 1. Seborrheic keratosis/keratoses. Benign. As asymptomatic on arm, no tx. 2. Inflamed Seborrheic Keratoses R preauricular cheek and R abd X 2. Advised as physically tender cryosurgery performed. Advised on post-care and blistering. 3. Mild atopic dermatitis of the lower back. Start TAC 0.1% cream sparingly bid prn itch. PATIENT EDUCATION: Skin care reviewed. Sun avoidance, protection and SSE reviewed. Questions answered, Risks/Benefits alternatives discussed w/ patient. Scar, infection, bleeding, pain purpura, recurrence. Pt understands F/U prn Trish Medina PA-C documented in this encounter Plan of Treatment Upcoming Encounters Date Type Department Care Team (Late st Contact Info) Description 11/24/2024 1:00 PM HAND CELL TUBER Procedure Surgical Procedure Visit [phone] Titus Vieyra MD [address] [place] [address] [address] [place] [address] Scheduled Orders Name Type Priority Associated Diagnoses Orde r Schedule OFFICE/OUTPT VISIT,EST,LEVL III PROCEDURES Routine Inflamed seborrheic keratosis Seborrheic keratosis Intrinsic atopic dermatitis Ordered: 04/14/2020 DESTRUCTION BENIGN LESIONS, OTHER THAN SKIN PROCEDURES Routine Inflamed seborrheic keratosis Ordered: 04/14/2020 documented as of this encounter Visit Diagnoses Diagnosis Inflamed seborrheic keratosis- Primary Seborrheic keratosis Other seborrheic keratosis Intrinsic atopic dermatitis documented in this encounter Additional Health Concerns Assessment Noted Time A fall risk assessment has been complete d for the patient 04/26/2014 7:59 AM CDT documented as of this encounter Care Teams Groundskeeper Porter Relationship Specialty Start Date End Date Jeison Orozco MD PCP - General 12/25/01 08/12/23 documented as of this encounter
--- OUTSIDE RECORDS SUMMARY | 2024-11-07 07:01 | XMS_ITS | Encounter Summary ---
Author Organization [facility] Address [address] [place] [address] Care Team Providers Care Quality Assurance Tester Name Role Phone Qian Mathur MD Primary Care Provider [phone] Reason for Visit * Reason Onset Date Comments Refill Request 07/24/2021 Encounter Details Date Type Department Care Team (Late st Contact Info) Description 07/24/2021 Refill Med/Peds - [facility] [address] [place], [place] [id number] Jeison Orozco MD Refill Request Social History [...] as of this encounter Progress Notes * Reina Rodriguez RN - 07/25/2021 4:40 AM CDT Requested Prescriptions Pending Prescriptions Disp Refills ??? zolpidem 5 MG Oral Tab 30 tablet 0 Sig: Take 1 tablet (5 mg total) by mouth daily. Reason for Medication Refill being sent to Provider / Reason Protocol Failed: [] Patient is overdue for an appointment [] Labs are overdue or out of range [] Blood pressure was out of range at last office visit [] Medication was not previously prescribed by provider [] No follow-up date specified [] BPA/Chart advisory [x] Controlled medication [] Psychiatric non-scheduled medication [] NEW medication requested (never prescribed before), assessed negative lethality and recommend appointment before routing to provider [] The patient has been non-compliant with this medication for greater than 30 days with current prescription, assessed negative lethality and routed to provider Actions Taken if applicable: [] Overdue orders placed [] Communication sent to patient/pharmacy [x] Routing to provider for approval. documented in this encounter Plan of Treatment Upcoming Encounters Date Type Department Care Team (Late st Contact Info) Description 11/24/2024 1:00 PM CHAINSTITCH ZIPPER SETTER Procedure Surgical Procedure Visit [phone] Titus Vieyra MD [address] [facility] [address] [place] [address] documented as of this encounter Visit Diagnoses Not on filedocumented in this encounter Additional Health Concerns Assessment Noted Time A fall risk assessment has been complete d for the patient 04/26/2014 7:59 AM CDT documented as of this encounter Care Teams Quality Assurance Tester Relationship Specialty Start Date End Date Qian Mathur MD [address] [facility] [address] [place] [address] PCP - General Internal Medicine 08/13/23 06/06/24 documented as of this encounter
--- OUTSIDE RECORDS SUMMARY | 2024-11-07 07:01 | XMS_ITS | Encounter Summary ---
Author Organization [facility] Address [address] [place] [address] Care Team Providers Care Piping Engineer Name Role Phone Jeison Orozco MD Primary Care Provider Unav ailable Encounter Details Date Type Department Care Team (Latest Contact Info) Description 03/18/2019 9:15 AM CDT Ancillary Procedure Radiology - [place] [facility] [address] [place] [address] Sprain of left wrist, initial encounter Social History Tobacco Use Types [...] Contact Info) Description 11/24/2024 1:00 PM SERVICE PROVIDER Procedure Surgical Procedure Visit [phone] Titus Vieyra MD [address] [place] [address] [address] [place] [address] documented as of this encounter Procedures Procedure Name Priority Date/Time Associated Diagnosis Comments XR WRIST NAVICULAR COMPLETE (4 VIEWS), LEFT ([id number]) Routine 03/18/2019 9:11 AM CDT Sprain of left wrist, initial encounter documented in this encounter Results * XR WRIST NAVICULAR COMPLETE (4 VIEWS), LEFT ([id number]) (03/18/2019 9:11 AM CDT) Anatomical Region Laterality Modality Upper body Left Computed Radiogr aphy Narrative 03/18/2019 4:50 PM CDT X-rays AP, oblique, navicular and lateral: No evidence of any fracture or dislocation. ??Bony alignment is within normal limits. Roger Gonzalez MD RIS XRAY documented in this encounter Visit Diagnoses Diagnosis Sprain of left wrist, initial encounter documented in this encounter Additional Health Concerns Assessment Noted Time A fall risk assessment has been complete d for the patient 04/26/2014 7:59 AM CDT documented as of this encounter Care Teams Piping Engineer Relationship Specialty Start Date End Date Jeison Orozco MD PCP - General 12/25/01 08/12/23 documented as of this encounter
--- OUTSIDE RECORDS SUMMARY | 2024-11-07 07:01 | XMS_ITS | Encounter Summary ---
Author Organization [facility] Address [address] [place] [address] Care Team Providers Care Traveling Phlebotomist Name Role Phone Jeison Orozco MD Primary Care Provider Unav ailable Reason for Visit * Reason Onset Date Comments Triage 05/01/2017 Encounter Details Date Type Department Care Team (Late st Contact Info) Description 05/01/2017 Telephone Internal Medicine - [facility] [address] [facility] [address] [place], [place] [id number] Jeison Orozco MD Triage Social History Tobacco [...] as of this encounter Progress Notes * Valerie Morris - 05/02/2017 9:26 AM CDT rx escribed Pt informed * Ashkan Orozco - 05/01/2017 1:13 PM CDT [facility] * Valerie Morris - 05/01/2017 1:01 PM CDT ADULT TRIAGE BUILD - Urology - UTI - Telephone Triage Protocol ??? Refer only to ER and ICC when the conditions are met below or state why in the additional note section ? ? In general if condition > 24 hours and not significantly worsening, patient may be offered an appointment at their PCPs office ??? If workup ongoing for a condition, patient should stay with physician doing work-up Additional Notes: Pt states that she did a evisit on 04/25/17 For a urine infection. Macrobid was ordered . She improved the first day and then all of the symptoms returned. She is in [place] at her daughters and was wondering if you would order something else for her. She wont be back until next week Caregiver/patient indicated understanding. Care Now: ED (Call 911) Severe Pain = 9-10/10 Pain: [] Painful erection present > 2 hours [] Severe testicular pain that lasts more than 30 minutes (patient writhing in pain) Other: [] Shock suspected (e.g., cold/pale/clammy skin, too weak to stand) [] Mental status change, confusion, or significant weakness [] Incontinence with History of recent back injury or weakness in legs [] Sudden inability to control urination [] Severe bleeding from urethra Care Now: Immediate Care [] Temperature >102 F (39C) Pain: [] Severe abdominal pain (with or without fever) or inability to void [] Severe scrotal pain or swelling [] Persistent discomfort or condition worsens after 48 hours of home care or antibiotic therapy Bleeding / Discharge / Trauma: [] History of blood clots and dark blood in a currently catheterized patient [] Recent trauma to genitalia or abdomen [] Taking blood-thinning medication and urine is pink or red [] Penis stuck in zipper Dysfunction: [] Catheter in place but no urine flow (Call home health or urology if applicable) [] Recent urinary tract or abdominal surgery (Call surgeon) with complaints [] Surgically placed catheter or tube dislodged [] Inability to urinate >8 hrs or catheter not draining urine >8 hours [] Unable to urinate (or only a few drops) and bladder feels very full [] Signs of dehydration in normally healthy adult (sunken eyes, excessive thirst, dry mouth, or drymucous membranes, crying without tears) [] Foreskin pulled back and stuck [] Entire penis is swollen (i.e., edema) PCP Care: ALL OTHER SYMPTOMS - ??? Recommend first available appointment with PCP ??? Patient may be seen later at their request ? ? SDA/C if patient requesting to be seen today & PCP cannot accommodate [] Temperature > 101.5??F (38.3??C) Pain: Mild Pain = 1-5/10 Moderate Pain = 6,7,8/10 [x] Pain with urination [x] Mild to Moderate Persistent flank or low abdominal pain [] Painful, red, and irritated perineal area [] Pain over bladder [] Inability to urinate without discomfort [] Painful urination after sexual contact [] Persistent back, low abdominal, or flank pain [] Nausea or vomiting with urinary pain Bleeding / Discharge / Trauma: [] Blood in urine [] Penile / urethral discharge [] Painful rash or sores [] Penile discharge [] Blood in urine [] Blood in semen [] Swollen foreskin / glans [] Pain after intercourse [] Unusual Vaginal Discharge [] Large amounts of Blood or pus in the urine Dysfunction: [] Recent trauma or recent back injury [] Urinary urgency or frequency with or without mild discomfort or fever [] Decreased fluid intake, excessive sweating, and dark yellow or orange urine [] New-onset incontinence [] Clouding or foul-smelling urine [] Vomiting or poor fluid intake in a child [] Urgency or frequency for than >3 days [] Bed-wetting [] Sudden urge to urinate and inability to control urine before making it to the toilet [] Difficulty starting urination [] Difficulty urinating after sexual activity [] Decreased fluid intake, excessive sweating, dark yellow or orange urine [] Vomiting or poor fluid intake in a child [] Recurrent urinary tract infections [] Swollen foreskin (not circumcised) [] Erectile Dysfunction [] Loss of sexual interest [] Swelling and cut on penis [] Injury to genitals with associated pain and swelling [] Enlarged Testicle or Testicles [] Scrotal itching, redness, swelling, discomfort [] Scrotal lump [] Patient Requesting to be seen and does not qualify for above categories Home Care (Only If Patient refuses assessment via office visit, video visit or e-visit.) ??? Home Care instructions only to be used if patient???s symptoms do not trigger referral to ED orICC ??? Patient/Production Corrugator instructed on Home Care as listed below and verbally indicated understanding. Patient/Production Corrugator instructed to call back if symptoms persist or worsen Follow home care instructions and call back if no improvement w/in 48 hrs to make appt. w/ PCP. General: 1. Drink at least six to eight 8-ounce glasses of water a day (unless physicians has ordered a restricted-fluid regimen). 2. Avoid caffeine and alcohol. 3. For retention problems, try urinating in a warm bath. 4. For genital herpes, apply cold compresses to perineal area. 5. For difficulty starting to urinate, turn on water faucet (sound of running water can help to stimulate urination), and pour warm water over perineum while sitting on the toilet. 6. For retention problems, try urinating in a warm bath. Urinary Catheter Home Care Instructions: 1. Check for kinks in tubing 2. Make sure collection bag is lower than the pelvis. 3. Make sure person is not lying on the catheter and catheter is in place. 4. Change position of the person. 5. Drink at least 8 to 10 glasses of fluid daily unless on a fluid-restricted regimen. 6. Call back if no improvement after home care measures. documented in this encounter Plan of Treatment Upcoming Encounters Date Type Department Care Team (Late st Contact Info) Description 11/24/2024 1:00 PM CASH APPLICATIONS ANALYST Procedure Surgical Procedure Visit [phone] Titus Vieyra MD [address] [place] [address] [address] [place] [address] documented as of this encounter Visit Diagnoses Not on filedocumented in this encounter Additional Health Concerns Assessment Noted Time A fall risk assessment has been complete d for the patient 04/26/2014 7:59 AM CDT documented as of this encounter Care Teams Traveling Phlebotomist Relationship Specialty Start Date End Date Jeison Orozco MD PCP - General 12/25/01 08/12/23 documented as of this encounter
--- OUTSIDE RECORDS SUMMARY | 2024-11-07 07:02 | XMS_ITS | Encounter Summary ---
Author Organization [facility] Address [address] [place] [address] Care Team Providers Care Spinning Supervisor Name Role Phone Jeison Orozco MD Primary Care Provider Unav ailable Reason for Visit * Reason Onset Date Comments Patient Question 09/14/2015 Encounter Details Date Type Department Care Team (Late st Contact Info) Description 09/14/2015 Telephone Gastroenterology - [facility] [address] [facility] [address] [place], [place] [phone] Titus Vieyra MD [address] [place] [address] [address] [place], [place] [id number] Patient Question Social History Tobacco Use Types Packs/Day [...] as of this encounter Progress Notes * Garnett, Evet M. - 09/14/2015 10:22 AM CST Pt can't tolerate prep would like to try miralax prep ITY BASEBALL COACH documented in this encounter Plan of Treatment Upcoming Encounters Date Type Department Care Team (Late st Contact Info) Description 11/24/2024 1:00 PM VARSITY BASEBALL COACH Procedure Surgical Procedure Visit [phone] Titus Vieyra MD [address] [facility] [address] [place] [address] documented as of this encounter Visit Diagnoses Not on filedocumented in this encounter Additional Health Concerns Assessment Noted Time A fall risk assessment has been complete d for the patient 04/26/2014 7:59 AM CDT documented as of this encounter Care Teams Spinning Supervisor Relationship Specialty Start Date End Date Jeison Orozco MD PCP - General 12/25/01 08/12/23 documented as of this encounter
--- OUTSIDE RECORDS SUMMARY | 2024-11-07 07:02 | XMS_ITS | Encounter Summary ---
Author Organization [facility] Address [address] [place] [address] Care Team Providers Care Kennel Attendant Name Role Phone Jeison Orozco MD Primary Care Provider Unav ailable Reason for Visit * Reason Comments Cough Encounter Details Date Type Department Care Team (Late st Contact Info) Description 10/28/2014 2:30 PM MANAGER FACILITY Office Visit Internal Medicine - [facility] [address] [facility] [address] [place] [address] Jeison Orozco MD Acute upper respiratory infections of unspecified site (Primary Dx); Pulmonary congestion and hypostasis Social History Tobacco Use Types Packs/Day Years [...] Sign Reading Time Taken Comments Blood Pressure 124/70 10/28/2014 2:37 PM MANAGER FACILITY Pulse 72 10/28/2014 2:37 PM MANAGER FACILITY Temperature 36.4 ??C (97.6 ??F) 10/28/2014 2:37 PM CS T Respiratory Rate - - Oxygen Saturation 98% 10/28/2014 2:37 PM MANAGER FACILITY Inhaled Oxygen Concentration - - Weight 71.6 kg (157 lb 12.8 oz) 10/28/2014 2:37 PM MANAGER FACILITY Height 167.6 cm (5' 6 ) 10/28/2014 2:37 PM MANAGER FACILITY Body Mass Index 25.47 10/28/2014 2:37 PM MANAGER FACILITY documented in this encounter Functional Status Functional Status Response Date of Assess ment Hearing Problems? No 04/26/2014 Vision Problems? No 04/26/2014 Difficulty walking? No 04/26/2014 Difficulty dressing or bathing? No 04/26/2014 Problems with daily activities? No 04/26/2014 Cognitive Status Response Date of Assessm ent Memory Problems? No 04/26/2014 documented as of this encounter Progress Notes * Ashkan Orozco - 10/28/2014 3:00 PM CST ANDERSON VISIT NOTE DATE OF VISIT: 10/28/2014 [facility] INTERNAL MEDICINE HISTORY OF PRESENT ILLNESS: Acute URI, sinusitis, bronchitis, mild serous otitis. No evidence of any active bacterial infection, but she is traveling to [place] in the next couple of days. PLAN: I gave her a Z-Chuck as directed as fallback therapy. Hopefully she will not need to use it. I also gave her Ambien 10 mg p.o. at bedtime p.r.n. for travel. She is aware of the side effects. She has taken it previously. If she has anything new or different prior to leaving [facility], she will let usknow. Cherrie Orozco MD PM/kb - PT NAME: TIMOTEO COSTELLO - GER FACILITY documented in this encounter Plan of Treatment Upcoming Encounters Date Type Department Care Team (Late st Contact Info) Description 11/24/2024 1:00 PM MANAGER FACILITY Procedure Surgical Procedure Visit [phone] Titus Vieyra MD [address] [place] [id number] Scheduled Orders Name Type Priority Associated Diagnoses Orde r Schedule OFFICE/OUTPT VISIT,EST,LEVL III PROCEDURES Routine Acute upper respiratory infections of unspecified site Pulmonary congestion and hypostasis Ordered: 10/28/2014 documented as of this encounter Visit Diagnoses Diagnosis Acute upper respiratory infections of unspecified site- Primary Pulmonary congestion and hypostasis documented in this encounter Additional Health Concerns Assessment Noted Time A fall risk assessment has been complete d for the patient 04/26/2014 7:59 AM CDT documented as of this encounter Care Teams Kennel Attendant Relationship Specialty Start Date End Date Jeison Orozco MD PCP - General 12/25/01 08/12/23 documented as of this encounter
--- OUTSIDE RECORDS SUMMARY | 2024-11-07 07:02 | XMS_ITS | Encounter Summary ---
Author Organization [facility] Address [address] [place] [address] Care Team Providers Care Customer Assistant Name Role Phone Jeison Orozco MD Primary Care Provider Unav ailable Reason for Visit * Reason Comments Other LUCILLE:11/18/09 Dx: Oss eous cyst proximal phalanx of the left hallux,Hallux abductovalgus, left,Capsulitis 2nd and 3rd MPJ/metatarsalgia,Plantar fibroma, left,History of lateral ankle sprain, right Heel Pain Patient presents tod ay w/ a c/o (R) heel pain x's 8 mos, relates pain upon ambulation, pain level 5/10 at worst 10/10. Pt has on her own been icing, stretching and wearing temp inserts. Encounter Details Date Type Department Care Team (Late st Contact Info) Description 11/14/2016 4:10 PM COW TRIMMER Office Visit Podiatry - [place] [address] [facility] [place] [address] Margarita Cotter DPM [address] [facility] [address] [place] [address] Plantar fasciitis of right foot (Primary Dx) Social History Tobacco Use Types [...] Progress Notes * Margarita Cotter, DPM - 11/14/2016 4:54 PM CST Tonya Costello is a 55 year old female. Patient presents with: Other: LUCILLE:11/18/09 Dx: Osseous cyst proximal phalanx of the left hallux,Hallux abductovalgus, left,Capsulitis 2nd and 3rd MPJ/metatarsalgia,Plantar fibroma, left,History of lateral ankle sprain, right Heel Pain: Patient presents today w/ a c/o (R) heel pain x's 8 mos, relates pain upon ambulation, pain level 5/10 at worst 10/10. Pt has on her own been icing, stretching and wearing temp inserts. HISTORY: Past medical, surgical, social and family history reviewed and appreciated. Allergies: Penicillins Rash Current Meds: Current Outpatient Prescriptions: triamcinolone acetonide (KENALOG) 0.1 % External Cream Apply to A BID x 1-2 weeks, then taper to prn Disp: 45 g Rfl: 1 Probiotic Product (PROBIOTIC DAILY OR) Take by mouth daily. Disp: Rfl: Nutritional Supplements (JUICE PLUS FIBRE OR) Take by mouth daily. Disp: Rfl: Estradiol (VAGIFEM) [address] vaginally. Use twice weekly Disp: Rfl: Ibuprofen 200 MG Oral Tab 1 TABLET EVERY 4 TO 6 HOURS NEEDED Disp: Rfl: Patient presents with: Other: LUCILLE:11/18/09 Dx: Osseous cyst proximal phalanx of the left hallux,Hallux abductovalgus, left,Capsulitis 2nd and 3rd MPJ/metatarsalgia,Plantar fibroma, left,History of lateral ankle sprain, right Heel Pain: Patient presents today w/ a c/o (R) heel pain x's 8 mos, relates pain upon ambulation, pain level 5/10 at worst 10/10. Pt has on her own been icing, stretching and wearing temp inserts. Tonya Costello is a 55 year old female who presents to the office today complaining of heel pain,right, x 8 months.?? The pain is worse when first getting up after periods of rest, and then improves with further steps.?? Patient denies traumatic or inciting event.??Patient denies any redness or s welling or bruising.?? Denies numbness, tingling, or paresthesias.? OBJECTIVE FINDINGS:? Integument: Warm, dry, and supple bilateral. There is positive pedal hair growth bilateral. There are no changes in skin coloration. There are no open lesions and there are nosigns of infection.? Vascular: Dorsalis pedis and posterior tibial pulses are 2/4 bilaterally. Capillary filling time is less than 3 seconds to digits 1 through 5 bilaterally. There is no peripheral edema noted. Neurologic: Grossly intact to sharp/dull, light touch, and proprioception bilaterally.? Musculoskeletal: Muscle strength is 5/5 supinators and pronators. Joints are congruous, equal, and pain-free.? There is pain with deep palpation of plantar medial calcaneal tuberosity, right heel, less pain distally along the course of the plantar fascia and plantar central calcaneal tuberosity.?? No pain with [id number] compression of the calcaneus, no evidence of tarsal tunnel syndrome on examination. ?? IMPRESSION:? Plantar fasciitis, right. ?? PLAN:? Initial H&P Examined patient, discussed treatment.?? First injection is provided into the right heel consistingof a total of 2.25 mL of 0.5% Marcaine plain mixed with 1 mL of Celestone Soluspan after ETOH prep.?? Band-aid was then applied.?? Patient is advised to ice and stretch t.i.d. and was given written instructions regarding this.?? Recommended patient modify shoe gear and avoid barefoot walking, beginwearing her old orthotics, and followup in 3 weeks.?? If pain continues, consider 2nd injection or new custom-molded orthotics. Rx NB shoes. 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 documented in this encounter Plan of Treatment Upcoming Encounters Date Type Department Care Team (Late st Contact Info) Description 11/24/2024 1:00 PM COW TRIMMER Procedure Surgical Procedure Visit [phone] Titus Vieyra MD [address] [place] [address] [address] [place] [address] Scheduled Orders Name Type Priority Associated Diagnoses Orde r Schedule INJ TENDON/LIGAMENT/CYST PROCEDURES Routine Plantar fasciitis of right foot Ordered: 11/14/2016 OFFICE/OUTPT VISIT,PAPITOLEVL III PROCEDURES Routine Plantar fasciitis of right foot Ordered: 11/14/2016 documented as of this encounter Procedures Procedure Name Priority Date/Time Associated Diagnosis Comments BETAMETHASONE SODIUM PHOSPHATE/ACETATE 3MG CHARGEABLE Routine 11/14/2016 4:57 PM COW TRIMMER Plantar fasciitis of right foot documented in this encounter Visit Diagnoses Diagnosis Plantar fasciitis of right foot- Primary Plantar fascial fibromatosis documented in this encounter Administered Medications Administered Medications Medication Order MAR Action Action Date Dose Rate Site Betamethason Acet&sod Phosp INTRAARTICULAR Given 11/14/2016 1.5 mL RIGHT FOOT documented in this encounter Additional Health Concerns Assessment Noted Time A fall risk assessment has been complete d for the patient 04/26/2014 7:59 AM CDT documented as of this encounter Care Teams Customer Assistant Relationship Specialty Start Date End Date Jeison Orozco MD PCP - General 12/25/01 08/12/23 documented as of this encounter
--- OUTSIDE RECORDS SUMMARY | 2024-11-07 07:02 | XMS_ITS | Encounter Summary ---
Author Organization [facility] Address [address] [place] [address] Care Team Providers Care Director Script Name Role Phone Jeison Orozco MD Primary Care Provider Unav ailable Reason for Visit * Reason Onset Date Comments Schedule Surgery 04/04/2015 Encounter Details Date Type Department Care Team (Late st Contact Info) Description 04/04/2015 [facility] [address] [place] [address] Titus Vieyra MD [address] [place] [address] Schedule Surgery Social History Tobacco [...] as of this encounter Progress Notes * Radha Gutiérrez, RN - 04/04/2015 8:44 AM CDT Ok to leave detailed message regarding preparation ? Yes Bowel Preparation BowelPreparation:SuPrep Per Dr. Vieyra EGD instructions: Special Instructions: Sedation MAC Sedation ? No. Clinical History History of MRSA ? No. History of C-DIFF ? No. History of STAR ?No. Pacemaker ? No. DE fib/AICD? No. Anticoagulant therapy Anticoagulant /Antiplatelet therapy /Blood thinners? if yes, which one No Procedure Colonoscopy-[id number] Will call back to schedule after transportation gave several dates documented in this encounter Plan of Treatment Upcoming Encounters Date Type Department Care Team (Late st Contact Info) Description 11/24/2024 1:00 PM BARGE ENGINEER Procedure Surgical Procedure Visit [phone] Titus Vieyra MD [address] [place] [address] [address] [place] [address] documented as of this encounter Visit Diagnoses Not on filedocumented in this encounter Additional Health Concerns Assessment Noted Time A fall risk assessment has been complete d for the patient 04/26/2014 7:59 AM CDT documented as of this encounter Care Teams Director Script Relationship Specialty Start Date End Date Jeison Orozco MD PCP - General 12/25/01 08/12/23 documented as of this encounter
--- OUTSIDE RECORDS SUMMARY | 2024-11-07 07:02 | XMS_ITS | Encounter Summary ---
Author Organization [facility] Address [address] [place] [address] Care Team Providers Care Dry Room Operator Name Role Phone Jeison Orozco MD Primary Care Provider Unav ailable Reason for Visit * Reason Onset Date Comments Procedure 12/05/2015 gs colon Encounter Details Date Type Department Care Team (Late st Contact Info) Description 12/05/2015 Telephone G[facility]enterology - [facility] [address] [place], [place] [phone] Titus Vieyra MD [address] [facility] [address] [place], [place] [phone] Procedure (gs colon) Social History Tobacco Use Types Packs/Day Years [...] as of this encounter Progress Notes * Titus Vieyra MD - 12/05/2015 11:55 AM CST [facility] ENDOSCOPY OPERATIVE REPORT Patient Name: Tonya Costello Date of : 1960 Date of Procedure: 12/05/2015 Preoperative Diagnosis: History of polyp (piecemeal resected ascending polyp 2014, repeat colonoscopy planned now to evaluate completeness of resection) Postoperative Diagnosis: unremarkable tattoos in ascending and 50 cm, small descending polyp, diverticulosis Procedure Performed: Colonoscopy with biopsy Anesthesia Given: Benadryl 25 mg IV, Versed 9 mg IV, fentanyl 100 mcg IV all given in divided dosesas per protocol. Endoscopist: Titus Vieyra MD Procedure: After the [...] was carefully examined and the preparation was adequate, some bile staining though. The patient tolerated the procedure well. FINDINGS: Tortuous colon in the left colon There was some bile staining and fecal debris coating the ornelas of the colon, especially in the right colon, possibly making identification of small, flat, or subtle lesions challenging and reduced accuracy. These areas were washed extensively, appeared to be successful Unremarkable tattoos noted in ascending and at 40 cm, no residual or recurrent polyp noted, scars well seen A 3 mm polyp was seen in the descending and was removed with the cold biopsy forceps. Diverticular changes of the descending and sigmoid colon were noted. The overall appearance of the mucosa was normal. At the anal verge the endoscope was retroverted, internal hemorrhoids were seen, no other abnormalities were identified. Throughtout the procedure vital signs were stable. PLAN: Patient is to follow a high fiber, low fat diet and followup with primary physician for routine care. I will communicate results of the pathology with the patient. 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 Titus Vieyra MD [facility]astroenterology SAW OPERATOR documented in this encounter Plan of Treatment Upcoming Encounters Date Type Department Care Team (Late st Contact Info) Description 11/24/2024 1:00 PM DRUM SAW OPERATOR Procedure Surgical Procedure Visit [phone] Titus Vieyra MD [address] [place] [address] [address] [place] [address] documented as of this encounter Visit Diagnoses Not on filedocumented in this encounter Additional Health Concerns Assessment Noted Time A fall risk assessment has been complete d for the patient 04/26/2014 7:59 AM CDT documented as of this encounter Care Teams Dry Room Operator Relationship Specialty Start Date End Date Jeison Orozco MD PCP - General 12/25/01 08/12/23 documented as of this encounter
--- OUTSIDE RECORDS SUMMARY | 2024-11-07 07:02 | XMS_ITS | Encounter Summary ---
Author Organization [facility] Address [address] [place] [address] Care Team Providers Care Digital Campaign Specialist Name Role Phone Jeison Orozco MD Primary Care Provider Unav ailable Encounter Details Date Type Department Care Team (Late st Contact Info) Description 05/01/2015 Telephone Gastroenterology - [facility] [address] [facility] [address] [place], [place] [address] Titus Vieyra MD [address] [facility] [address] [place], [place] [phone] Social History Tobacco Use Types Packs/Day Years [...] as of this encounter Progress Notes * Stephanie Min - 05/01/2015 4:33 PM CDT Left message on answering machine per HIPAA ?? Date/location of procedure ?? Clear liquid diet entire day prior to procedure ?? Start time of bowel prep. ?? Tonya Costello to call us if prescription or prep instructions are needed. Tonya Costello is to call the prep RN with any medication questions or if they have any changes to their health history/medication lists since last office visit. Please call your electric range assembler with any questions. Left message documented in this encounter Plan of Treatment Upcoming Encounters Date Type Department Care Team (Late st Contact Info) Description 11/24/2024 1:00 PM MACHINE FEED OPERATOR Procedure Surgical Procedure Visit [phone] Titus Vieyra MD [address] [facility] [address] [place] [address] documented as of this encounter Visit Diagnoses Not on filedocumented in this encounter Additional Health Concerns Assessment Noted Time A fall risk assessment has been complete d for the patient 04/26/2014 7:59 AM CDT documented as of this encounter Care Teams Digital Campaign Specialist Relationship Specialty Start Date End Date Jeison Orozco MD PCP - General 12/25/01 08/12/23 documented as of this encounter
--- OUTSIDE RECORDS SUMMARY | 2024-11-07 07:02 | XMS_ITS | Encounter Summary ---
Author Organization [facility] Address [address] [place] [address] Care Team Providers Care Finishing Inspector Name Role Phone Jeison Orozco MD Primary Care Provider Unav ailable Reason for Visit * Reason Onset Date Comments Pt Question 10/24/2014 Encounter Details Date Type Department Care Team (Late st Contact Info) Description 10/24/2014 Telephone Internal Medicine - [facility] [address] [facility] [address] [place], [place] [phone] Qian Mathur MD [address] [facility] [address] [place], [place] [phone] Pt Question Social History Tobacco Use Types Packs/Day [...] as of this encounter Progress Notes * Kavya Ulloa, RN - 10/28/2014 8:30 AM CST Patient called back - appt made. Future Appointments Date Time Provider Department Center 10/28/2014 2:30 PM Selena Orozco MD [facility] DOOR WORKER * Dorota Coleman - 10/24/2014 11:00 AM CST Pt left voicemail stating [place]. Pt would like a script for Ambien for flight and antibiotic in case she gets sick. Please advise. DOOR WORKER documented in this encounter Plan of Treatment Upcoming Encounters Date Type Department Care Team (Late st Contact Info) Description 11/24/2024 1:00 PM SIDE DOOR WORKER Procedure Surgical Procedure Visit [phone] Titus Vieyra MD [address] [place] [address] [address] [place] [address] documented as of this encounter Visit Diagnoses Not on filedocumented in this encounter Additional Health Concerns Assessment Noted Time A fall risk assessment has been complete d for the patient 04/26/2014 7:59 AM CDT documented as of this encounter Care Teams Finishing Inspector Relationship Specialty Start Date End Date Jeison Orozco MD PCP - General 12/25/01 08/12/23 documented as of this encounter
--- OUTSIDE RECORDS SUMMARY | 2024-11-07 07:02 | XMS_ITS | Encounter Summary ---
Author Organization [facility] Address [address] [place] [address] Care Team Providers Care Jewel Supervisor Name Role Phone Jeison Orozco MD Primary Care Provider Unav ailable Reason for Visit * Reason Comments Back Pain * Rehab Services (Routine) - Closed Specialty Diagnoses / Procedures Referred By Delmi zee Referred To Contact Rehabilitation Diagnoses Spondylolisthesis at L5-S1 level Scoliosis Cervical spondylosis Ashkan Amin, PA [address] [place] [address] Referral ID Status Reason Start Date Expiration Date Visits Re quested Visits Authorized [id number] Closed 04/27/2015 04/26/2016 12 12 Encounter Details Date Type Department Care Team (Late st Contact Info) Description 06/30/2015 11:30 AM CDT Office Visit Physical Therapy - [facility] [address] [facility] [address] [place] [address] Fili Canela, PT [address] [place], [place] [phone] Congenital spondylolisthesis (Primary Dx); Scoliosis (and kyphoscoliosis), idiopathic; Cervical spondylosis without myelopathy Social History Tobacco Use Types Packs/Day Years [...] as of this encounter Progress Notes * Fili Canela, PT - 06/30/2015 11:34 AM CDT Physical Therapy Discharge Summary PROGRESS SUMMARY: Total visits seen: 9 PT Dx: middle back pain Dx Code: 756.12, 737.30, 721.0 SUBJECTIVE: Patient Reports: No significant changes w/ PT, but understands she needs more postural awareness and needs to improve strength and stability. Pain Summary: Pt. continues with pain during prolonged standing activities. Functional Limitations: Limited with prolonged standing at work. OBJECTIVE: Posture and Observation Summary: kyphotic, slump sitting ROM Summary: Lumbar Spine Deg/Percent Pain Rep. Mot. Forward Bend 75 Backward Bend 50 Rotation Right 75 Rotation Left 75 Side Bend Right 25 Side Bend Left 25 Flexibility Summary: limitations w/ pectorals; upper traps. Manual Assessment Summary: Moderate hypomobility w/ PIVM of the cervicothoracic spine. (Please close note by pressing F9 and then reopen by clicking on 'Edit' before going further) ASSESSMENT & PLAN OF CARE: The patient has been referred to physical therapy with a diagnosis of back pain, and has attended 9visits since 05/30/15. Treatment has consisted of the following: Manual therapy to address joint and/or soft tissue mobility, Therapeutic exercises, Core strengthening program , Stretching program, Pt. education for posture, body mechanics, and ergonomics, Cervical Stabilization and HEP instruction Goals: [facility] goals: To be reached in 12 visits. ?? Pt. will report decreased pain from 8/10 to 3/10 at worst. NOT MET ?? Increase active range of motion of seated thoracic rotation to 3 inches bilaterally. NOT MET ?? Pt. will be independent with home exercise program and self management. MET ?? Increase hamstring muscle length with SLR to 60 degrees bilaterally. NOT MET ?? Increase cervical rotation AROM to 70 degrees bilaterally. NOT MET ?? Pt will be able to fall asleep with less pain at night. NOT MET ?? Pt will report improved standing tolerance. NOT MET Assessment: Patient has partially met goals. Patient is independent with self management. HEP should continue to address limitations. The patient continues to present with impairments of joint integrity/mobility, motor function, muscle performance and ROM associated with spinal disorders. The patients impairments continue to affect functional capabilities including prolonged standing. The patient rehab prognosis is good. Recommendations: Patient will be discharged and to continue with HEP. Patient was advised regarding the findings of this evaluation and agrees to the plan of care. ID# [id number] Thank you again for this referral. Please feel free to contact me with any questions or concerns. Respectfully, Fili Canela, PT Please fax back to [facility]: [phone] I have no revisions to this plan of care. Please revise plan as follows: Physician Signature: Date: In signing this document, physician certifies that prescribed rehabilitation is a medical necessity. MD: Ashkan Amin PT Dx: middle back pain Dx Code: 756.12, 721.0 Visit 9 12 SUBJECTIVE: Pain: 2/10 today. Pt. Reports: just sore OBJECTIVE: Cervical Spine Deg/Percent Pain Rep. Mot. Forward Bend 75 Backward Bend 75 Retraction Rotation Right 50 Rotation Left 50 Side Flexion Right 75 Side Flexion Left 25 Manual Therapy: Prone PAs to thoracic spine 8 minutes Assessment: Mild discomfort in mid thoracic region with PA mobes. Hypomobility in thoracic spine with mobes. Therapeutic Activity: minutes Assessment: Neuromuscular Re education: verbal, visual, and/or tactile cues given throughout treatment minutes Assessment: Therapeutic Exercise: UBE 3'/3' Foam roll pec stretch x3' FR thoracic ext x20 SMFR to thoracic w/ ball x4' SGs at wall R/L x20 Reassess x8' 30 minutes Assessment: Other: GOALS: intermediate teacher goals: To be reached in 12 visits. ?? Pt. will report decreased pain from 8/10 to 3/10 at worst. NOT MET ?? Increase active range of motion of seated thoracic rotation to 3 inches bilaterally. NOT MET ?? Pt. will be independent with home exercise program and self management. MET ?? Increase hamstring muscle length with SLR to 60 degrees bilaterally. NOT MET ?? Increase cervical rotation AROM to 70 degrees bilaterally. NOT MET ?? Pt will be able to fall asleep with less pain at night. NOT MET ?? Pt will report improved standing tolerance. NOT MET PLAN: Discharge from PT and continue with HEP on an independent basis. This plan was discussed withthe patient and he is in agreement. documented in this encounter Plan of Treatment Upcoming Encounters Date Type Department Care Team (Late st Contact Info) Description 11/24/2024 1:00 PM BRAZING MACHINE FEEDER Procedure Surgical Procedure Visit [phone] Titus Vieyra MD [address] [place] [address] [address] [place] [address] Scheduled Orders Name Type Priority Associated Diagnoses Orde r Schedule THERAPEUTIC EXERCISES PROCEDURES Routine Congenital spondylolisthesis Scoliosis (and kyphoscoliosis), idiopathic Cervical spondylosis without myelopathy Ordered: 06/30/2015 MANUAL THERAPY PROCEDURES Routine Congenital spondylolisthesis Scoliosis (and kyphoscoliosis), idiopathic Cervical spondylosis without myelopathy Ordered: 06/30/2015 documented as of this encounter Visit Diagnoses Diagnosis Congenital spondylolisthesis- Primary Scoliosis (and kyphoscoliosis), idiopathic Cervical spondylosis without myelopathy documented in this encounter Additional Health Concerns Assessment Noted Time A fall risk assessment has been complete d for the patient 04/26/2014 7:59 AM CDT documented as of this encounter Care Teams Jewel Supervisor Relationship Specialty Start Date End Date Jeison Orozco MD PCP - General 12/25/01 08/12/23 documented as of this encounter
--- OUTSIDE RECORDS SUMMARY | 2024-11-07 07:02 | XMS_ITS | Encounter Summary ---
Author Organization [facility] Address [address] [place] [address] Care Team Providers Care Damage Prevention Coordinator Name Role Phone Jeison Orozco MD Primary Care Provider Unav ailable Reason for Referral * Procedure (Routine) - Closed Specialty Diagnoses / Procedures Referred By Delmi zee Referred To Contact Gastroenterology Diagnoses History of adenomatous polyp of colon Procedures COLONOSCOPY,DIAGNOSTIC Titus Vieyra MD [address] [place] [address] Titus Vieyra MD [address] [place] [address] Referral ID Status Reason Start Date Expiration Date Visits Re quested Visits Authorized [id number] Closed 12/05/2015 03/04/2016 1 1 Scheduling Instructions This department is supported by [facility] Special[facility] and sees patients 18 years and older. If your appointment has not been made for you during today's visit, please refer to the scheduling instructions below. HFS and [facility] patients should call the department directly to schedule their appointment. Your physician has referred you to a Turner Machine Operator affiliated with [facility] or for a Gastroenterology test. To schedule your appointment, please call [phone] [facility] in [place] (on [facility]): [address] [place] [address], [address], [address], [place] [address] [facility] in [place]: [address] [place] [address], [place] [address] [facility] in [place] ([facility]): [address], [address] [address] [facility] in [place]: [address], [address], [place] [address] [facility] in [place]: [address], [address], [place] [address] [facility] in [facility] [address], [place] [address] [facility] in [facility]): [address], [address], [place] [address] [facility] in [place]: [address], [address], [place] [address] For more information about [facility] physicians and locations, visit: [email or web address] In order to insure proper patient identification, [...] office or the Utilization Management Department at [phone], seventy-two (72) hours after the order is placed. Referrals can not be entered retrospectively. IF YOU HAVE PPO INSURANCE COVERAGE If your medical insurance is a PPO, it is the patient's responsibility to confirm that any provider, vendor and/or facility outside of [facility] is in your network. Although your PPO insurance may not require referrals, there are certain procedures (MRI, Nuclear Stress Test, Surgery, etc.) that may require an authorization from your insurance company. As long as the service is being performed at [facility], the [facility] UM staff will obtain the necessary authorization on your behalf. IF YOU HAVE HMO INSURANCE COVERAGE Your insurance requires a referral from your Primary Care Physician. [facility] will obtain authorization from your insurance company for services ordered by your [facility] PCP or [facility] specialist. A referral is not a guarantee of benefit, and we highly recommend that you call your insurance company to verify your coverage Comments POSSIBLE APC Encounter Details Date Type Department Care Team ([facility] Contact Info) Description 07/07/2015 Telephone Gastroenterology - [facility], [place] [address] [place] [address] Titus Vieyra MD [address] [place] [address] Social History Tobacco Use Types Packs/Day Years [...] Upcoming Encounters Date Type Department Care Team ([facility] Contact Info) Description 11/24/2024 1:00 PM LAB INSTRUCTOR Procedure Surgical Procedure Visit [phone] Titus Vieyra MD [address] [place], [place] [id number] Scheduled Referrals Name Type Priority Associated Diagnoses Orde r Schedule COLONOSCOPY DIAGNOSTIC - REFERRAL Referral Routine History of adenomatous polyp of colon Ordered: 07/07/2015 documented as of this encounter Visit Diagnoses Diagnosis History of adenomatous polyp of colon- Primary Personal history of colonic polyps documented in this encounter Additional Health Concerns Assessment Noted Time A fall risk assessment has been complete d for the patient 04/26/2014 7:59 AM CDT documented as of this encounter Care Teams Damage Prevention Coordinator Relationship Specialty Start Date End Date Jeison Orozco MD PCP - General 12/25/01 08/12/23 documented as of this encounter
--- OUTSIDE RECORDS SUMMARY | 2024-11-07 07:02 | XMS_ITS | Encounter Summary ---
Author Organization [facility] Address [address] [place] [address] Care Team Providers Care Watershed Coordinator Name Role Phone Jeison Orozco MD Primary Care Provider Unav ailable Reason for Visit * Reason Comments Lesion Encounter Details Date Type Department Care Team (Late st Contact Info) Description 11/21/2015 11:15 AM PODIATRIC TECHNICIAN Office Visit Dermatology - [facility] [address] [place] [address] Janice Hagan PA-C Seborrheic keratoses (Primary Dx); Neoplasm of uncertain behavior of skin; Spongiotic dermatitis Social History Tobacco Use Types Packs/Day [...] - - Temperature - - Respiratory Rate 12 11/21/2015 11:20 AM PODIATRIC TECHNICIAN Oxygen Saturation - - Inhaled Oxygen Concentration - - Weight 68 kg (150 lb) 11/21/2015 11:20 AM PODIATRIC TECHNICIAN Height 167.6 cm (5' 6 ) 11/21/2015 11:20 AM PODIATRIC TECHNICIAN Body Mass Index 24.21 11/21/2015 11:20 AM PODIATRIC TECHNICIAN documented in this encounter Functional Status Functional Status Response Date of Assess ment Hearing Problems? No 04/26/2014 Vision Problems? No 04/26/2014 Difficulty walking? No 04/26/2014 Difficulty dressing or bathing? No 04/26/2014 Problems with daily activities? No 04/26/2014 Cognitive Status Response Date of Assessm ent Memory Problems? No 04/26/2014 documented as of this encounter Progress Notes * Janice Hagan - 11/27/2015 9:25 AM CSTQuick Note: Both biopsies from the back of the left knee were normal. They were both benign crusty skin growths; no additional treatment needed. Patient was notified in My Chart. ATRIC TECHNICIAN * Sheeba Moe - 11/21/2015 11:21 AM CST HPI: Tonya Costello is a 54 year old female who presents for evaluation of spot on back of knee Patient presents with: Lesion Location: legs Condition present for months. Lesion(s) asymptomatic Previous treatments include: none (See patient intake form) PHYSICAL EXAM: A&Ox3: Yes Well developed, well nourished female Yes Skin Type: 2 legs checked 1. Abdomen (predominantly flanks) with scattered erythematous, dry patches. 2. Right posterior upper arm/shoulder with keratotic plaque x 1. 3. Left popliteal fossa superior with 4 mm crusted pink nodule. 4. Left popliteal fossa inferior with 10 mm tracy excoriated nodule. ASSESSMENT/PLAN: 1. Biopsy proven spongiotic dermatitis-abdomen: Advised. Begin TAC 0.1% cream BID x 1-2 weeks, thentaper to prn. Discussed side effects of topical corticosteroid creams at length. Begin daily use ofCeraVe moisturizer. Contact office if struggling; would consider short prednisone course, phototherapy. 2. Seborrheic Keratosis -right posterior upper arm/shoulders: Advised benign, as bothersome to patient. Cryosurgery done. Advised on blistering and post-op care. Advised on risks including scarring and recurrence and pigmentation change. 3. Verrucoid keratosis versus other-left popliteal fossa superior: Shave biopsy done. Consent signed. Advised on risks including bleeding, infection, scarring, and recurrence. Advised on post-op care. 4. DF versus other-left popliteal fossa inferior: Advised. Shave biopsy done. Consent signed. Advised on risks including bleeding, infection, scarring, and recurrence. Advised on post-op care. Skin care reviewed. Sun avoidance, protection and SSE reviewed. Questions answered. Risks/benefits/ alternatives discussed with patient. Scar, infection, bleeding, pain purpura, recurrence. Medication side effects. Follow-up:pending pathology/ annual FSE/prn sooner Scribed By: MIKA Ford ID#[id number] ATRIC TECHNICIAN documented in this encounter Plan of Treatment Upcoming Encounters Date Type Department Care Team (Late st Contact Info) Description 11/24/2024 1:00 PM PODIATRIC TECHNICIAN Procedure Surgical Procedure Visit [phone] Titus Vieyra MD [address] [place] [address] Scheduled Orders Name Type Priority Associated Diagnoses Orde r Schedule OFFICE/OUTPT VISIT,[facility]OS II PROCEDURES Routine Neoplasm of uncertain behavior of skin Seborrheic keratoses Spongiotic dermatitis Ordered: 11/21/2015 BIOPSY OF SKIN LESION PROCEDURES Routine Neoplasm of uncertain behavior of skin Ordered: 11/21/2015 BIOPSY, EACH ADDED LESION PROCEDURES Routine Neoplasm of uncertain behavior of skin Ordered: 11/21/2015 documented as of this encounter Procedures Procedure Name Priority Date/Time Associated Diagnosis Comments SURGICAL PATHOLOGY, TISSUE [id number] Timed 11/21/2015 1:20 PM PODIATRIC TECHNICIAN Neoplasm of uncertain behavior of skin documented in this encounter Results * Surgical Pathology, Tissue [id number] (11/21/2015 1:20 PM PODIATRIC TECHNICIAN) Case Report Surgical Pathology Report ? Case: [id number] ? Authorizing Provider: ??Janice Hagan PA-C ?Collected: ? 11/21/2015 01:20 PM ? Ordering Location: ? [facility] [place] ?Received: ?11/22/2015 12:38 PM ? Pathologist: ? Tyree Rayo MD ? Specimens: ?? A) - Tissue, Left popliteal fossa superior, shave removal-verruc oid keratosis vs ? other ? B) - Tissue, left popliteal fossa inferior, shave removal-Dermat ofibroma vs other ? 11/24/2015 5:39 PM [facility] Final Diagnosis Specimen A (left popliteal fossa superior): Verrucoid keratosis Specimen B (left popliteal fossa inferior): Verrucoid keratosis, inflamed 11/24/2015 5:39 PM [facility] Gross Description Specimen A: Received in formalin, is a piece of skin, measuring 6 mm. Bisected and entirely submitted. (TS-2-1) Specimen B: Received in formalin, is a piece of skin, measuring 8 mm. Trisected and entirely submitted. (TS-3-1) 11/24/2015 5:39 PM [facility] Tissue TISSUE SPECIMEN / Unknown 11/21/2015 1:20 PM PODIATRIC TECHNICIAN 11/22/2015 12:[address] [facility] Tissue specimen (specimen) TISSUE SPECIMEN / Unknown 11/21/2015 1:23 PM PODIATRIC TECHNICIAN 11/22/2015 12:38 PM PODIATRIC TECHNICIAN Janice Hagan PA-C PATHOLOGY/CYTOLOGY ORDERABLES Performing Organization Address City/State/[facility] Co de Phone Number [facility] [address], [place] [address], [facility] [address], [address] [place], [place] [address] documented in this encounter Visit Diagnoses Diagnosis Seborrheic keratoses- Primary Neoplasm of uncertain behavior of skin Spongiotic dermatitis Contact dermatitis and other eczema, due to unspecified cause documented in this encounter Additional Health Concerns Assessment Noted Time A fall risk assessment has been complete d for the patient 04/26/2014 7:59 AM CDT documented as of this encounter Care Teams Watershed Coordinator Relationship Specialty Start Date End Date Jeison Orozco MD PCP - General 12/25/01 08/12/23 documented as of this encounter
--- OUTSIDE RECORDS SUMMARY | 2024-11-07 07:02 | XMS_ITS | Encounter Summary ---
Author Organization [facility] Address [address] [place] [address] Care Team Providers Care Ict Business Analyst Name Role Phone Jeison Orozco MD Primary Care Provider Unav ailable Reason for Referral * Rehab Services (Routine) - Closed Specialty Diagnoses / Procedures Referred By Delmi zee Referred To Contact Rehabilitation Diagnoses Spondylolisthesis at L5-S1 level Scoliosis Cervical spondylosis Ashkan Amin, PA [address] [place] [address] Referral ID Status Reason Start Date Expiration Date Visits Re quested Visits Authorized [id number] Closed 04/27/2015 04/26/2016 12 12 Scheduling Instructions THIS IS NOT A REFERRAL Your physician has referred you for Physical Therapy and/or Occupational Therapy affiliated with [facility]. The locations are listed below. To schedule an appointment at any one of our locations, please call: [phone]: [place]: [address] ([address] [place]) [place] [address] ([address] [facility]) [place] [address] (Medical Office Building at [facility]) [place]: [address], [address] ([facility] [place]: [address], [address] ([facility]) [place]: [address], [address] ([address]) [place]: [address], [address] ([address]) [place]: [address] ([place] of [address] Note GPS is inaccurate for this location) [place]/[facility]: [address] ([address] [place]) [place]: [address], [address] ([address] [place]: [address] ([address]) [place]: [address], [address] ([place]) [place]: [address] ([address] [place] [address] [place] [address] ([address]) For directions and additional information about [facility] services, physicians and locations, visit [email or web address]. Insurance authorization: As a service to you, [facility] will obtain any necessary prior authorization required by your benefit plan provided you choose to have these services performed at one of the locations listed above. It is important that you contact your health insurance directly to determine your therapy benefit coverage including co-payment, deductible, patient payment responsibility, or limit in number of visits. Co-payment is due at the time of service. If you choose to have these services performed at a location other than those listed above, you are responsible for obtaining any prior authorization required by your benefit plan. It is very important you arrive 15-20 minutes prior to your initial appointment to fill out all necessary paperwork. Also, bring your insurance information, photo ID, the order from your doctor and any copayments due. Wear loose comfortable clothing and appropriate shoes for exercise. Comments 18 visits 2-3 times per week Reason for Visit * Reason Comments Consult ref by Dr Orozco for posture eval Encounter Details Date Type Department Care Team (Latest Contact Info) Description 04/27/2015 9:40 AM CDT Office Visit Spine - Ankit Singh [address] [place] [address] Ashkan Amin, [place] [address] [place] [address] Spondylolisthesis at L5-S1 level (Primary Dx); Scoliosis; Cervical spondylosis Social History Tobacco Use Types Packs/Day Years [...] - - Weight 68 kg (150 lb) 04/27/2015 9:53 AM CDT Height 167.6 cm (5' 6 ) 04/27/2015 9:53 AM CDT Body Mass Index 24.21 04/27/2015 9:53 AM CDT documented in this encounter Functional Status Functional Status Response Date of Assess ment Hearing Problems? No 04/26/2014 Vision Problems? No 04/26/2014 Difficulty walking? No 04/26/2014 Difficulty dressing or bathing? No 04/26/2014 Problems with daily activities? No 04/26/2014 Cognitive Status Response Date of Assessm ent Memory Problems? No 04/26/2014 documented as of this encounter Progress Notes * Ashkan Amin - 04/27/2015 11:06 AM CDT Patient: Tonya Costello Site: [place], [place] Referring Physician: Selena Orozco PCP: Selena Orozco MD Dear Dr. Orozco: Thank you very much for requesting this consultation. I had the opportunity to evaluate and initiate care for your patient today, as per your request. I have carefully reviewed the patient's intake questionnaire before our encounter today. HISTORY OF CHIEF COMPLAINT: Tonya Costello is a 54 year old female, who presents for evaluation after being seen at a free chiropractic evaluation. Pt was concerned at her eval after being told she has significant spinal deformity that may not be able to be reversed. Pt has complaints of mid upper back pain with standing for long periods of time. Pt denies leg pain. No arm pain. No weakness. No complaints of loss of coordination, fine motor skills or difficulty with balance. No new accident or injury with onset of symptoms Pt has hx of bilateral frozen shoulder that she tx with PT. VAS Pain Score: 0 /10 Aggravating Factors: Relieving Factors: ?? Sitting at computer ?? standing ?? Ice ?? Change positions. Past Treatment Attempted/Patient???s Response: none The patient indicates she requires assistance with the following activities: Does not require assistance with any activities Past Medical History Diagnosis Date ??? AF (atrial fibrillation) (HCC) 06/21/2013 ??? Arrhythmia PAF Past Surgical History REMOVAL OF COCCYX OTHER SURGICAL HISTORY Comment facial plastic surgery COLONOSCOPY,BIOPSY 08/03/2012 Comment small cecal and ascending colon polps. Also, 13 mm flat polyp at about 40 cm from anus was tattooed was adenoma. Joaquin-colonic diverticulosis COLONOSCOPY,REMV LESN,SNARE 08/03/2012 COLONOSCPY, FLEXIBLE, PROXIMAL TO SPLENIC FLEXURE; W/DIRECTED SUBMUCOSA INJECTION(S), ANY JPIMORXAA07/8/2012 FLEX SIG 12/2012 Comment 3 mm sigmoid polyp was adenoma. No recurrent polyp at tattoo site at 40 cm SIGMOIDOSCOPY,BIOPSY 01/11/2013 Comment Procedure: FLEXIBLE SIGMOIDOSCOPY WITH BIOPSY, POLYPECTOMY; Surgeon: Titus Vieyra MD;Location: [facility] No family history on file. Social History Marital Status: Spouse Name: Years of Education: Number of children: Social History Main Topics Smoking Status: Former Smoker Packs/Day: 0.00 Years: 10 Smokeless Status: Never Used Comment: quit 26 yrs ago Alcohol Use: Yes Comment: socially, 7 drinks/week Drug Use: No Current Medications: Current Outpatient Prescriptions: Na Sulfate-K Sulfate-Mg Sulf (SUPREP BOWEL PREP) Oral Solution Dispense one suprep bowel kit Disp: 2 Bottle Rfl: 0 Diltiazem HCl ER Coated Beads (CARDIZEM CD) 120 MG Oral Capsule SR 24 Hr TAKE 1 CAPSULE DAILY Disp:90 capsule Rfl: 0 BIOTIN OR Take 3 tablets by mouth daily. Disp: Rfl: Estradiol (VAGIFEM) [address] vaginally. Use twice weekly Disp: Rfl: aspirin 81 MG Oral Tab Take 81 mg by mouth daily. 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 REVIEW OF SYSTEMS: GENERAL HEALTH: No fevers, chills, recent weight loss or unremitting night pain. SKIN: No history of skin rashes. EYES: No blurred vision, double vision or changes in vision. HEENT: No swallowing or hearing difficulties. RESPIRATORY: No shortness of breath. CARDIOVASCULAR: No chest pain or palpitations. GI: Denies nausea, vomiting, constipation, diarrhea; no rectal bleeding; no heartburn, no melana. : No dysuria, urgency or frequency; no hematuria. NEURO: No balance problems, no seizure problems, no depression. PSYCHE: no symptoms of depression or anxiety. HEMATOLOGY: denies hx anemia; denies bruising or excessive bleeding. ENDOCRINE: denies excessive thirst or urination; denies unexpected wt gain or wt loss. MUSCULOSKELETAL: DENIES:, Muscle cramps, Joint pain, Swelling of joints, History of arthritis, Fibromyalgia, Osteoporosis, Hardware, Deformity, Limited Range of motion, Crepitation, Gout, Heel spurs ALLERGY/IMM.: denies food or seasonal allergies. No history of cancer, infectious disease exposure. IMAGING STUDIES: xrays from outside facility. No reports available at this time, images done at chiropractic clinic Spondylosis seen with loss of disc height at C5-6 Loss of cervical lordosis Cervical thoracic scoliosis seen Spondylolisthesis L5-S1 Slight lumbar scoliosis seen Loss of disc height seen at each level of lumbar spine. PHYSICAL EXAMIMATION Cervical spine: Patient is A&O X 3 and in no apparent distress. Neck is soft and supple with no masses or lymphadenopathy palpated. Non- tender to palpation over the para spinals and C7 spinous process Skin intact with no erythema, edema or ecchymosis noted No pain with left and right rotation of neck Spulrlings Maneuver is negative Beltran's Maneuver is negative bilaterally Smooth pain free ROM to bilateral wrist, elbow; no shoulder pain Sensation is intact to all dermatome patterns of bilateral upper extremities Cranial nerves 2-12 Intact Tinel's is negative to bilateral cubital and carpal tunnels. negative Phalen's Strength testing: Left Right 5/5 Deltoid 5/5 Deltoid 5/5 Biceps 5/5 Biceps 5/5 Triceps 5/5 Triceps 5/5 Ext Rot 5/5 Ext Rot 5/5 Wrist Ext 5/5 Wrist Ext 5/5 Intrinsics 5/5 Intrinsics DTR Left Right 2+Biceps 2+ Biceps 2+Triceps 2+Triceps 2+Brichoradialis 2+Brachioradialis Bilateral Lower Extremitis are negative for clonus Patient is in no apparent distress. Alert and oriented times 3. In the seated position: Left 5/5 Hip flex Right 5/5 Hip flex 5/5 Knee ext 5/5 Knee ext 5/5 EHL 5/5 EHL 5/5 DF 5/5 DF 5/5 PF 5/5 PF negative SLR negative SLR Deep tendon reflexes 2+ to bilateral patella and Achilles tendons Clonus is negative to bilateral lower extremities Calves soft and non tender bilaterally Dorsal pulses 2+ bilateral Sensation is fully intact Smooth pain free ROM to bilateral Hips, Knees, Ankles Ht 5' 6 (1.676 m) Wt 150 lb (68.04 kg) BMI 24.22 kg/m2 MEDICAL DECISION MAKING: Impression: Spondylosis cervical spine C5-6 Scoliosis Spondylolisthesis L5-S1 Thoracic pain. Plan: I had a very pleasant conversation with patient regarding her findings. At this time pt will proceed with PT for her thoracic pain . Advised patient in use of Aleve for pain control. Pt will follow up in 4-6 weeks for repeat exam. We discussed possible MRI exam if pain continues. Pt was happy with plan and will call with any questions. The patient indicates understanding of these issues and agrees to the plan. Thank you very much. Respectfully yours, Ashkan Amin PA-C Id#[id number] documented in this encounter Plan of Treatment Upcoming Encounters Date Type Department Care Team (Late st Contact Info) Description 11/24/2024 1:00 PM ESCALATOR SERVICE MECHANIC Procedure Surgical Procedure Visit [phone] Titus Vieyra MD [address] [place] [address] [address] [place] [address] Scheduled Orders Name Type Priority Associated Diagnoses Orde r Schedule OFFICE CONSULTATION,LEVEL III PROCEDURES Routine Cervical spondylosis Scoliosis Spondylolisthesis at L5-S1 level Ordered: 04/27/2015 Scheduled Referrals Name Type Priority Associated Diagnoses Orde r Schedule PT SPINE EVAL & TREAT ([facility]) Referral Routine Spondylolisthesis at L5-S1 level Scoliosis Cervical spondylosis Ordered: 04/27/2015 documented as of this encounter Visit Diagnoses Diagnosis Spondylolisthesis at L5-S1 level- Primary Congenital spondylolisthesis Scoliosis Scoliosis (and kyphoscoliosis), idiopathic Cervical spondylosis Cervical spondylosis without myelopathy documented in this encounter Additional Health Concerns Assessment Noted Time A fall risk assessment has been complete d for the patient 04/26/2014 7:59 AM CDT documented as of this encounter Care Teams Ict Business Analyst Relationship Specialty Start Date End Date Jeison Orozco MD PCP - General 12/25/01 08/12/23 documented as of this encounter
--- OUTSIDE RECORDS SUMMARY | 2024-11-07 07:02 | XMS_ITS | Encounter Summary ---
Author Organization [facility] Address [address] [place] [address] Care Team Providers Care Branch Office Administrator Name Role Phone Sona Saenz MD Primary Care Provider [phone] Encounter Details Date Type Department Care Team (Late st Contact Info) Description 06/07/2015 Orders Only Endocrinology - [address], [place] [address] [place] [address] Robert Woods MD [address] [facility] [address] [place], [place] [address] Cortisol deficiency (HCC); Tinnitus, bilateral; Dry skin Social History Tobacco Use Types Packs/Day [...] of this encounter Progress Notes * Radha Ibarra RN - 06/12/2015 10:41 AM CDTQuick Note: [phone] (home) [phone] (work) Telephone Information: Patient informed of Dr. Beltran result note. Patient verbalized understanding and agrees with plan. * Robert Brooks MD - 06/11/2015 10:21 PM CDTQuick Note: Please let pt know that all labs - cortisol and thyroid are completely normal. Return to endocrine as needed. Thanks! YK documented in this encounter Plan of Treatment Upcoming Encounters Date Type Department Care Team (Late st Contact Info) Description 11/24/2024 1:00 PM UTILIZATION MANAGEMENT NURSE Procedure Surgical Procedure Visit [phone] Titus Vieyra MD [address] [place] [address] [address] [place] [address] documented as of this encounter Procedures Procedure Name Priority Date/Time Associated Diagnosis Comments CORTISOL, AM Routine 06/07/2015 8:13 AM CDT Cortisol deficiency (HCC) Tinnitus, bilateral Dry skin FREE T4 (FREE THYROXINE) Routine 015 8:13 AM CDT Cortisol deficiency (HCC) Tinnitus, bilateral Dry skin THYROID- STIMULATION HORMONE (TSH) Routine 06/07/2015 8:13 AM CDT Cortisol deficiency (HCC) Tinnitus, bilateral Dry skin TRIIODOTHYRONINE (T3), FREE Routine 06/07/2015 8:13 AM CDT Cortisol deficiency (HCC) Tinnitus, bilateral Dry skin ADRENOCORTICOTROPIC HORMONE (ACTH) Routine 06/07/2015 8:13 AM CDT Cortisol deficiency (HCC) Tinnitus, bilateral Dry skin documented in this encounter Results * FREE T3 (TRIIODOTHYRONINE) (06/07/2015 8:13 AM CDT) Free T3 2.78 2.18 - 3.98 pg/mL 06/07/2015 11:08 AM CDT [facility] Blood Venipuncture / Unknown 06/07/2015 8:13 AM CDT 06/07/2015 8:13 AM CDT Robert Woods MD LAB BLOOD ORDERABLES [facility] [address] * FREE T4 (FREE THYROXINE) (06/07/2015 8:13 AM CDT) Pathologist [facility] Free T4 0.88 0.76 - 1.46 ng/dL 06/07/2015 11:08 AM CDT [facility] Blood Venipuncture / Unknown 06/07/2015 8:13 AM CDT 06/07/2015 8:13 AM CDT Robert Woods MD LAB BLOOD ORDERABLES Performing Organization Address [facility] Co de Phone Number [facility] [address] * ASSAY, THYROID STIM HORMONE (06/07/2015 8:13 AM CDT) Pathologist [facility] TSH 1.453 0.358 - 3.74 mIU/L 06/07/2015 11:08 AM CDT [facility] Blood Venipuncture / Unknown 06/07/2015 8:13 AM CDT 06/07/2015 8:13 AM CDT Robert Woods MD LAB BLOOD ORDERABLES Performing Organization Address [facility] Co de Phone Number [facility] [address] * CORTISOL - AM (06/07/2015 8:13 AM CDT) Pathologist [facility] CORTISOL - AM 19.1 6.2 - 19.4 ug/dL [facility] 1 06/07/2015 8:13 AM CDT 06/07/2015 3:12 PM CDT Narrative [facility] - 06/08/2015 9:07 PM CDT Performed at: ??01 - [address] ??[id number] [employer] Lamp Shade Maker: Martin Baker PhD, Phone: ??[phone] Robert Woods MD LAB BLOOD ORDERABLES Performing Organization Address [facility] de Phone Number [facility] Unknown Unknown [facility] 1 [facility] [place] [address], [facility] [phone] * ACTH, PLASMA (06/07/2015 8:13 AM CDT) [facility] ACTH, PLASMA 24.4 7.2 - 63.3 pg/mL [facility] 1 Comment:ACTH reference inter jeimy for samples collected between 7 and 10 AM. Blood specimen (specimen) 06/07/2015 8:13 AM CDT 06/07/2015 9:21 PM CDT Comment:BLOOD Narrative [facility] - 06/08/2015 9:07 PM CDT Performed at: ??[address] ??[id number] [employer] Maker: Martin Baker PhD, Phone: ??[phone] Robert Woods MD LAB BLOOD ORDERABLES Performing Organization Address [facility] Co de Phone Number [facility] Unknown Unknown [facility] [address] [facility] [place] [place] [address], [facility] [phone] documented in this encounter Visit Diagnoses Diagnosis Cortisol deficiency (HCC) Glucocorticoid deficiency Tinnitus, bilateral Unspecified tinnitus Dry skin Other specified disease of sebaceous glands documented in this encounter Additional Health Concerns Infection Onset Date Last Indicated Resolved Time R/O COVID19 05/03/2020 05/03/2020 05/06/2020 5:10 AM CDT Assessment Noted Time A fall risk assessment has been complete d for the patient 04/26/2014 7:59 AM CDT documented as of this encounter Care Teams Branch Office Administrator Relationship Specialty Start Date End Date Sona Saenz MD [address] [address] PCP - General Internal Medicine 06/07/24 documented as of this encounter
--- OUTSIDE RECORDS SUMMARY | 2024-11-07 07:02 | XMS_ITS | Encounter Summary ---
Author Organization [facility] Address [address] [place] [address] Care Team Providers Care Logistics Vice President Name Role Phone Jeison Orozco MD Primary Care Provider Unav ailable Reason for Visit * Reason Comments Back Pain * Rehab Services (Routine) - Closed Specialty Diagnoses / Procedures Referred By Delmi zee Referred To Contact Rehabilitation Diagnoses Spondylolisthesis at L5-S1 level Scoliosis Cervical spondylosis Ashkan Amin, PA [address] [facility] [address] [place] [address] Referral ID Status Reason Start Date Expiration Date Visits Re quested Visits Authorized [id number] Closed 04/27/2015 04/26/2016 12 12 Encounter Details Date Type Department Care Team (Latest Contact Info) Description 05/30/2015 9:30 AM CDT Office Visit Physical Therapy - [place] Ankit Neumann [address] [facility] [address] [place], [place] [id number] Bonita Chin, GONZALO [address] [facility] [address] [place] [address] Congenital spondylolisthesis (Primary Dx); Cervical spondylosis Social History Tobacco Use Types [...] as of this encounter Progress Notes * Bonita Chin, PT - 05/30/2015 9:35 AM CDT PHYSICAL THERAPY INITIAL EVALUATION Referring Physician: Ashkan Amin PT Dx: middle back pain Dx Code: 756.12, 737.30, 721.0 DOI: chronic SUBJECTIVE: Pain: 8/10 at worst. Pt. Reports: Pt presents with mid back pain as well as neck and upper shoulder pain. Pt reports that she has had this pain for years. Pt reports that she went for a free consultation from a chiropractor and was told that she has poor posture. Pt reports that her pain is worse when doing dishes and vaccuming. Pt reports that she has difficulty falling asleep due to her back pain. Pt denies any numbness/tingling in bilateral UEs. Pt reports that she can sometimes have pain in her lower back as well. Pt reports that she has a history of bilateral frozen shoulders and 4 coccyx injuries. 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 Palpation: Mild tenderness to palpation of bilateral upper traps. No tenderness along cervical, thoracic or lumbar spine. Discomfort with lumbar and thoracic PA mobes. ROM: Thoracic rotation AROM: 2 inches R/L. Moderate loss of thoracic extension AROM. Moderate loss of lumbar flexion AROM (hands to shins). Minimal loss of lumbar extension or bilateral side glide AROM. Cervical flexion/extension AROM is full. Cervical rotation AROM: R= 62 degrees, L= 53 degrees. Cervical SB AROM: R= 20 degrees, L= 14 degrees. Special Tests: Negative Slump test bilaterally. Hamstring pain with SLR bilaterally. Strength: 4+/5 bilateral shoulder flexion/abduction. 5/5 bilateral shoulder IR. Shoulder ER: R= 4+/5, L= 4/5. 4/5 bilateral middle and lower trapezius. 5/5 bilateral hip flexion, knee extension and knee flexion without pain. Flexibility: HS muscle length is 40 degrees with SLR bilaterally. Additional Findings: Provisional classification: dysfunction syndrome. FOTO: Intake FS Score: 72 Predicted D/C FS Score: 74 TREATMENT: Initial evaluation followed by: Manual Therapy: Lumbar and thoracic PA mobes 8 min Therapeutic Exercise: Seated thoracic extension: 2x10 Seated thoracic rotation: 2x10 R/L Seated upper trap stretch with chair: x10, 5 hold 12 min Pt demonstrates verbal understanding of: prognosis, POC and HEP. ASSESSMENT: Patient presents with middle back pain. This impacts their functional ability to stand for prolonged times. Physical Therapy is medically necessary to address these limitations. Rehab Potential:good Education or treatment limitation: None halfway goals: To be reached in 12 visits. ?? Pt. will report decreased pain from 8/10 to 3/10 at worst. ?? Increase active range of motion of seated thoracic rotation to 3 inches bilaterally. ?? Pt. will be independent with home exercise program and self management. ?? Increase hamstring muscle length with SLR to 60 degrees bilaterally. ?? Increase cervical rotation AROM to 70 degrees bilaterally. ?? Pt will be able to fall asleep with less pain at night. ?? Pt will report improved standing tolerance. PLAN: Patient will be seen in physical therapy 2-3 x /week for 3-4 weeks or a total of 12 visits. Treatment will include: ?? Manual therapy to address joint and/or soft tissue mobility ?? Therapeutic exercises ?? Lumbar stabilization exercises ?? Core strengthening program ?? Stretching program ?? Pt. education for posture, body mechanics, and ergonomics ?? Modalities as needed ?? Scapular Stabilization ?? Strengthening program ?? Mechanical Diagnosis and Treatment ?? HEP instruction Pt. was advised regarding the findings of this evaluation and agrees to the plan of care. documented in this encounter Plan of Treatment Upcoming Encounters Date Type Department Care Team (Late st Contact Info) Description 11/24/2024 1:00 PM MANAGER RENTAL Procedure Surgical Procedure Visit [phone] Titus Vieyra MD [address] [place] [address] Scheduled Orders Name Type Priority Associated Diagnoses Orde r Schedule PHYS THERAPY EVALUATION PROCEDURES Routine Congenital spondylolisthesis Cervical spondylosis Ordered: 05/30/2015 THERAPEUTIC EXERCISES PROCEDURES Routine Congenital spondylolisthesis Cervical spondylosis Ordered: 05/30/2015 MANUAL THERAPY PROCEDURES Routine Congenital spondylolisthesis Cervical spondylosis Ordered: 05/30/2015 documented as of this encounter Visit Diagnoses Diagnosis Congenital spondylolisthesis- Primary Cervical spondylosis Cervical spondylosis without myelopathy documented in this encounter Additional Health Concerns Assessment Noted Time A fall risk assessment has been complete d for the patient 04/26/2014 7:59 AM CDT documented as of this encounter Care Teams Logistics Vice President Relationship Specialty Start Date End Date Jeison Orozco MD PCP - General 12/25/01 08/12/23 documented as of this encounter
--- OUTSIDE RECORDS SUMMARY | 2024-11-07 07:02 | XMS_ITS | Encounter Summary ---
Author Organization [facility] Address [address] [place] [address] Care Team Providers Care Picture Copyist Name Role Phone Jeison Orozco MD Primary Care Provider Unav ailable Encounter Details Date Type Department Care Team (Late st Contact Info) Description 04/11/2015 Telephone Surgical Procedure Visit [phone] Titus Vieyra MD [address] [place] [address] [address] [place], [place] [id number] Social History Tobacco Use Types Packs/Day Years [...] st Contact Info) Description 11/24/2024 1:00 PM COPY CENTER SPECIALIST Procedure Surgical Procedure Visit [phone] Titus Vieyra MD [address] [facility] [address] [place] [address] documented as of this encounter Visit Diagnoses Diagnosis Personal history of colonic polyps- Primary documented in this encounter Additional Health Concerns Assessment Noted Time A fall risk assessment has been complete d for the patient 04/26/2014 7:59 AM CDT documented as of this encounter Care Teams Picture Copyist Relationship Specialty Start Date End Date Jeison Orozco MD PCP - General 12/25/01 08/12/23 documented as of this encounter
--- OUTSIDE RECORDS SUMMARY | 2024-11-07 07:02 | XMS_ITS | Encounter Summary ---
Author Organization [facility] Address [address] [place] [address] Care Team Providers Care Addiction Medicine Physician Name Role Phone Sona Saenz MD Primary Care Provider [phone] Encounter Details Date Type Department Care Team (Late st Contact Info) Description 04/21/2015 Orders Only Internal Medicine - [facility] [address] 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 Surgical Procedure Visit [phone] Titus Vieyra MD [address] [place] [address] [address] [place] [address] documented as of this encounter Procedures Procedure Name Priority Date/Time Associated Diagnosis Comments URINALYSIS, COMPLETE WITH MICROSCOPIC EXAMINATION Routine 04/21/2015 11:01 AM CDT Abnormal posture Hormone imbalance Other malaise and fatigue Snoring Insomnia, unspecified Unspecified vitamin D deficiency B12 deficiency Other and unspecified hyperlipidemia URINE MICROSCOPIC EXAMINATION Routine 04/21/2015 11:01 AM CDT Abnormal posture COMPLETE BLOOD COUNT (CBC) WITH DIFFERENTIAL Routine 04/21/2015 10:07 AM CDT Abnormal posture Hormone imbalance Other malaise and fatigue Snoring Insomnia, unspecified Unspecified vitamin D deficiency B12 deficiency Other and unspecified hyperlipidemia VITAMIN D, 25-HYDROXY Routine 04/21/2015 10:07 AM CDT Abnormal posture Hormone imbalance Other malaise and fatigue Snoring Insomnia, unspecified Unspecified vitamin D deficiency B12 deficiency Other and unspecified hyperlipidemia LIPID PANEL W LDL/HDL RATIO Routine 04/21/2015 10:07 AM CDT Abnormal posture Hormone imbalance Other malaise and fatigue Snoring Insomnia, unspecified Unspecified vitamin D deficiency B12 deficiency Other and unspecified hyperlipidemia COMPREHENSIVE METABOLIC PANEL Routine 04/21/2015 10:07 AM CDT Abnormal posture Hormone imbalance Other malaise and fatigue Snoring Insomnia, unspecified Unspecified vitamin D deficiency B12 deficiency Other and unspecified hyperlipidemia SEDIMENTATION RATE (ESR) Routine 04/21/2015 10:07 AM CDT Abnormal posture Hormone imbalance Other malaise and fatigue Snoring Insomnia, unspecified Unspecified vitamin D deficiency B12 deficiency Other and unspecified hyperlipidemia VITAMIN B12 Routine 04/21/2015 10:07 AM CDT Abnormal posture Hormone imbalance Other malaise and fatigue Snoring Insomnia, unspecified Unspecified vitamin D deficiency B12 deficiency Other and unspecified hyperlipidemia THYROID- STIMULATION HORMONE (TSH) Routine 04/21/2015 10:07 AM CDT Abnormal posture Hormone imbalance Other malaise and fatigue Snoring Insomnia, unspecified Unspecified vitamin D deficiency B12 deficiency Other and unspecified hyperlipidemia HEMOGLOBIN A1C Routine 04/21/2015 10:07 AM CDT Abnormal posture Hormone imbalance Other malaise and fatigue Snoring Insomnia, unspecified Unspecified vitamin D deficiency B12 deficiency Other and unspecified hyperlipidemia CBC WITH DIFFERENTIAL WITH PLATELET Routine 04/21/2015 10:07 AM CDT Abnormal posture Hormone imbalance Other malaise and fatigue Snoring Insomnia, unspecified Unspecified vitamin D deficiency B12 deficiency Other and unspecified hyperlipidemia documented in this encounter Results * URINALYSIS, W MICROSCOPIC (04/21/2015 11:01 AM CDT) Specific Parker 1.015 1.005 - 1.030 [facility] 1 PH Urine 7.0 5.0 - 7.5 [facility] 1 Color Urine Yellow Yellow [facility] 1 APPEARANCE Clear Clear [facility] 1 WBC Urine Negative Negative [facility] 1 Protein Urine Negative Negative/Tra ce [facility] 1 GLUCOSE BLOOD Negative Negative [facility] 1 KETONES Negative Negative [facility] 1 Blood Urine Negative Negative [facility] 1 Bilirubin Urine Negative Negative [facility] 1 Urobilinogen Urine 0.2 0.0 - 1.9 mg/dL [facility] 1 Nitrite Urine Negative Negative [facility] 1 Microscopic Comment [facility] 1 Comment:Microscopic follows if indicated. MICROSCOPIC EXAMINATION See below: [facility] 1 Urine specimen (specimen) 04/21/2015 11:01 AM CDT 04/21/2015 1:57 PM CDT Comment:URINE Narrative [facility] - 04/21/2015 5:09 PM CDT Performed at: ??01 - [facility] [address] ??[id number] Virtual Office Assistant: Jair Hou PhD, Phone: ??[phone] Jeison Orozco MD URINE ORDERABLES Performing Organization Address [facility]/ZIP Co de Phone Number [facility] Unknown Unknown [facility] [address] [place] [id number], [facility] [phone] * MICROSCOPIC EXAMINATION (04/21/2015 11:01 AM CDT) WBC, URINE 0-5 0 - 5 /hpf [facility] 1 RBC, URINE None seen 0 - 2 /hpf [facility] 1 EPITHELIAL CELLS (NON RENAL) 0-10 0 - 10 /hpf [facility] 1 Bacteria Urine None seen None seen/Few [facility] 1 04/21/2015 11:0 1 AM CDT 04/21/2015 1:57 PM CDT Comment:URINE Narrative [facility] - 04/21/2015 5:09 PM CDT Performed at: ??01 - [facility] [address] ??[id number] Virtual Office Assistant: Jair Hou PhD, Phone: ??[phone] Read-only results ordered via the LCM/eLCM - see chart for additional updates or notes Jeison Orozco MD URINE ORDERABLES Performing Organization Address [facility] de Phone Number [facility] Unknown Unknown [facility] [address] [place] [id number], [facility] [phone] * (ABNORMAL) CBC W/ DIFFERENTIAL (04/21/2015 10:07 AM CDT) WBC 3.59(L) 4.10 - 11.30 10^3/uL 04/21/2015 3:55 PM CDT [facility] RBC 4.43 3.81 - 5.20 10^6/uL 04/21/2015 3:55 PM CDT [facility] Hemoglobin 13.3 11.6 - 16.0 g/dL 04/21/2015 3:55 PM CDT [facility] Hematocrit 42.4 34.0 - 48.0 % 04/21/2015 3:55 PM CDT [facility] MCV 95.7 79.0 - 99.0 fL 04/21/2015 3:55 PM CDT [facility] MCH 30.0 26.0 - 32.5 pg 04/21/2015 3:55 PM CDT [facility] MCHC 31.4(L) 31.8 - 36.0 g/dL 04/21/2015 3:55 PM CDT [facility] Platelet Count 235 145 - 450 10^3/uL 04/21/2015 3:55 PM CDT [facility] RDW 13.7 11.2 - 14.4 % 04/21/2015 3:55 PM CDT [facility] MPV 11.8(H) 7.0 - 11.5 fL 04/21/2015 3:55 PM CDT [facility] Neutrophils Absolute 2.10 1.70 - 8.50 10? 3 /??L 04/21/2015 3:55 PM CDT [facility] Lymphocytes Absolute 1.18 0.80 - 4.50 10^3/??L 04/21/2015 3:55 PM CDT [facility] Monocytes Absolute 0.15(L) 0.20 - 0.70 10^3/??L 04/21/2015 3:55 PM CDT [facility] Eosinophils Absolute 0.14 0.00 - 0.40 10^3/??L 04/21/2015 3:55 PM CDT [facility] Basophils Absolute 0.02 0.00 - 0.20 10^3/??L 04/21/2015 3:55 PM CDT [facility] Neutrophils % 58.4 % 04/21/2015 3:55 PM CDT [facility] Lymphocytes % 32.9 % 04/21/2015 3:55 PM CDT [facility] Monocytes % 4.2 % 04/21/2015 3:55 PM CDT [facility] Eosinophils % 3.9 % 04/21/2015 3:55 PM CDT [facility] Basophils % 0.6 % 04/21/2015 3:55 PM CDT [facility] Blood Venipuncture / Unknown 04/21/2015 10:07 AM CDT 04/21/2015 10:08 AM CDT Jeison Orozco MD LAB BLOOD ORDERABLE S [facility] [address] * VITAMIN B12 (04/21/2015 10:07 AM CDT) Vitamin B12 595 211 - 946 pg/mL [facility] 1 Blood specimen (specimen) 04/21/2015 10:07 AM CDT 04/21/2015 5:37 PM CDT Comment:BLOOD Narrative [facility] - 04/23/2015 9:07 AM CDT Performed at: ??01 - [facility] [address] ??[id number] Virtual Office Assistant: Jair Hou PhD, Phone: ??[phone] Jeison Orozco MD LAB BLOOD ORDERABLE S [facility] Unknown Unknown [facility] [address] [place] [id number] [phone] * VITAMIN D, 25-HYDROXY (04/21/2015 10:07 AM CDT) VITAMIN D, 25-HYDROXY 41.1 30.0 - 100.0 ng/mL [facility] 1 Comment: Vitamin D deficiency has been defined by the [place] of [employer] and an Endocrine Society practice guideline as a level of serum 25-OH vitamin D less than 20 ng/mL (1,2). The Endocrine Society went on to further define vitamin D insufficiency as a level between 21 and 29 ng/mL (2). 1. IOM ([place] of [employer]). 2010. Dietary reference ?? intakes for calcium and D. [place]: The ?? National Academies Press. 2. Niesha MF, Awais NC, Costa PRITCHARD, et al. ?? Evaluation, treatment, and prevention of vitamin D ?? deficiency: an Endocrine Society clinical practice ?? guideline. JCEM. 2010; 96(7):1911-30. Blood specimen (specimen) 04/21/2015 10:07 AM CDT 04/21/2015 5:37 PM CDT Comment:BLOOD Narrative [facility] - 04/23/2015 9:07 AM CDT Performed at: ??01 - [facility] [address] ??[id number] Virtual Office Assistant: Jair Hou PhD, Phone: ??[phone] Jeison Orozco MD LAB BLOOD ORDERABLE S [facility] Unknown Unknown [facility] 1 [address] [place] [address] [phone] * ASSAY, THYROID STIM HORMONE (04/21/2015 10:07 AM CDT) TSH 1.293 0.358 - 3.74 mIU/L 04/21/2015 4:11 PM CDT [facility] Blood Venipuncture / Unknown 04/21/2015 10:07 AM CDT 04/21/2015 10:08 AM CDT Jieson Orozco MD LAB BLOOD ORDERABLE S Performing Organization Address City/[facility]/ZIP Co de Phone Number [facility] [address] * SED RATE, WESTERGREN (AUTOMATED) (04/21/2015 10:07 AM CDT) Erythrocyte Sedimentation Rate 13 0 - 25 mm/hr 04/21/2015 4:04 PM CDT [facility] Blood Venipuncture / Unknown 04/21/2015 10:07 AM CDT 04/21/2015 10:08 AM CDT Jeison Orozco MD LAB BLOOD ORDERABLE S Performing Organization Address City/[facility]/ZIP Co de Phone Number [facility] [address] * (ABNORMAL) LIPID PANEL W LDL/HDL RATIO (04/21/2015 10:07 AM CDT) Triglycerides 34 30 - 150 mg/dL 04/21/2015 4:19 PM CDT [facility] Direct HDL 71(H) 40 - 60 mg/dL 04/21/2015 4:19 PM CDT [facility] Comment:Guidelines for high density lipoprotein (HDL) are adapted from the National Cholesterol Education Program (NCEP).Values >60 mg/dL are considered a negative risk factor for coronary heart disease (CHD) and are considered protective. Risk Factor 2.5 <5.0 04/21/2015 4:19 PM CDT [facility] Cholesterol 179 0 - 200 mg/dL 04/21/2015 4:19 PM CDT [facility] Calculated LDL 101.2(H) 0 - 100 mg/dL 04/21/2015 4:19 PM T [facility] Blood Venipuncture / Unknown 04/21/2015 10:07 AM CDT 04/21/2015 10:08 AM CDT Jeison Orozco MD LAB BLOOD ORDERABLE S Performing Organization Address [facility] de Phone Number [facility] [address] * HEMOGLOBIN A1C (04/21/2015 10:07 AM CDT) [facility] HbA1c 5.2 4.0 - 5.6 % 04/21/2015 4:22 PM T [facility] Estimated Average Glucose 103 mg/dL 04/21/2015 4:22 PM T [facility] Comment:eAG is the estimated average glucose calculated from Hgb A1c according to the formula recommended by the [place] Diabetes [employer].eAG levels reflect the technology strategist average glucose and may not correlate with random or fasting glucose levels since these represent specific points in time. Whole blood specimen (specimen) 04/21/2015 10:07 AM CDT 04/21/2015 10:08 AM CDT Jeison Orozco MD LAB BLOOD ORDERABLE S Performing Organization Address [facility] Co de Phone Number [facility] [address] * COMP METABOLIC PANEL (14) (04/21/2015 10:07 AM CDT) [facility] Glucose 92 65 - 99 mg/dL 04/21/2015 4:19 PM CDT [facility] Blood Urea Nitrogen 12 7 - 18 mg/dL 04/21/2015 4:19 PM CDT [facility] Creatinine 0.68 0.55 - 1.30 mg/dL 04/21/2015 4:19 PM CDT [facility] Comment: Traceable to IDWV. Please note reference interval change Sodium 145 135 - 145 mmol/L 04/21/2015 4:19 PM CDT [facility] Potassium 5.1 3.5 - 5.1 mmol/L 04/21/2015 4:19 PM CDT [facility] Chloride 104 98 - 107 mmol/L 04/21/2015 4:19 PM CDT [facility] Carbon Dioxide 28 21 - 32 mmol/L 04/21/2015 4:19 PM CDT [facility] Calcium 9.3 8.5 - 10.1 mg/dL 04/21/2015 4:19 PM CDT [facility] Total Protein 7.5 6.4 - 8.2 g/dL 04/21/2015 4:19 PM CDT [facility] Albumin 4.4 3.4 - 5.0 g/dL 04/21/2015 4:19 PM CDT [facility] Bilirubin, Total 0.51 0.20 - 1.00 mg/dL 04/21/2015 4:19 PM CDT [facility] Alkaline Phosphatase 53 46 - 116 U/L 04/21/2015 4:19 PM CDT [facility] AST 20 15 - 37 U/L 04/21/2015 4:19 PM CDT [facility] ALT 28 12 - 60 U/L 04/21/2015 4:19 PM CDT [facility] GFR CKD-EPI 98.10 >=60.00 mL/min/1.7 3 m?? 04/21/2015 4:19 PM CDT [facility] Comment: Estimated GFR units: mL/min/1.73 square meters eGFR calculated by the CKD-EPI equation. Blood Venipuncture / Unknown 04/21/2015 10:07 AM CDT 04/21/2015 10:08 AM CDT Jeison Orozco MD LAB BLOOD ORDERABLE S [facility] [address] [address] documented in this encounter Visit Diagnoses Diagnosis Abnormal posture Hormone imbalance Unspecified endocrine disorder Other malaise and fatigue Snoring Other dyspnea and respiratory abnormality Insomnia, unspecified Unspecified vitamin D deficiency B12 deficiency Other B-complex deficiencies Other and unspecified hyperlipidemia documented in this encounter Additional Health Concerns Infection Onset Date Last Indicated Resolved Time R/O COVID19 05/03/2020 05/03/2020 05/06/2020 5:10 AM CDT Assessment Noted Time A fall risk assessment has been complete d for the patient 04/26/2014 7:59 AM CDT documented as of this encounter Care Teams Addiction Medicine Physician Relationship Specialty Start Date End Date Sona Saenz MD [address] [address] PCP - General Internal Medicine 06/07/24 documented as of this encounter
--- OUTSIDE RECORDS SUMMARY | 2024-11-07 07:02 | XMS_ITS | Encounter Summary ---
Author Organization [facility] Address [address] [place] [address] Care Team Providers Care Regional Production Manager Name Role Phone Jeison Orozco MD Primary Care Provider Unav ailable Reason for Visit * Reason Onset Date Comments Path 12/07/2015 Encounter Details Date Type Department Care Team (Late st Contact Info) Description 12/07/2015 Telephone Gastroenterology - [facility] [place] [address] [facility] [address] [place], [place] [id number] Titus Vieyra MD [address] [place] [address] [address] [place], [place] [id number] Path Social History Tobacco Use Types Packs/Day Years [...] Progress Notes * Titus Vieyra MD - 12/07/2015 12:56 PM CST Repeat colonoscopy 12/05/15 Preoperative Diagnosis: History of polyp (piecemeal resected ascending polyp 2014, repeat colonoscopy planned now to evaluate completeness of resection) Postoperative Diagnosis: unremarkable tattoos in ascending and 50 cm, small descending adenoma, diverticulosis I called and discussed the results and recommendations with Timoteo Costello and they demonstrated understanding and were agreeable to the recommendations as listed. --Repeat colonoscopy 3 years with 2 day prep (magnesium citrate 2 nights prior, miralax prep 1 day prior, 2nd bottle of magnesium citrate the day prior to the procedure) Titus Vieyra MD [facility] CC: Selena Orozco MD OPRACTIC ASSISTANT * Teresa Garnett - 12/07/2015 8:41 AM CST Name: TIMOTEO COSTELLO /Age:1 1960 (Age: 54) Sex:F Surgical Pathology Report Client: [facility] Submitting Physician: Titus Vieyra MD Date Specimen Collected: 12/05/15 Date Specimen Received: 12/05/15 Date Reported: 12/06/2015 09:52 Location: [facility] Pathologic Diagnosis : A. Descending colon polyp: - Fragments of tubular adenoma. - No high-grade dysplasia seen. TC-1 Titus Ryder MD Electronic Signature (WEW) 12/06/2015 09:52 Clinical Information: History colon polyps, colon polyp diverticulosis Specimen(s) Submitted: Descending colon polyp forceps biopsy cold Gross Description: A: The specimen is received in formalin labeled descending colon polyp biopsy and consists of two pieces of pink tissue ranging from 0.2-0.1 cm and measuring 0.2 cm in aggregate. Sections submitted: A1: entire specimen AXK 12/05/2015 01:20 PM Microscopic Description: The attending pathologist whose signature appears on this report has reviewed the diagnostic studies and has edited the gross and/or microscopic portion of the report rendering the final diagnosis. The immunohistochemical, FISH, or KESHA reagents (if any) utilized in this test were developed and their performance characteristics determined by [facility]. Some of the immunohistochemical reagents have not been cleared or approved by the U.S. Food and Drug Administration. The FDA has determined that such clearance or approval is not necessary. This test is used for clinical purposes. It should not be regarded as investigational or for research. This laboratory is certified under the Clinical Laboratory Improvement Amendments of 1988 (CLIA) as qualified to perform high complexity clinical laboratory testing. The appropriate controls were run and show appropriate reactivity. Since FISH and/or immunohistochemistry for estrogen receptor, progesterone receptor, and HER2/terrie have not been validated on decalcified tissue, such results should be interpreted with caution given the likelihood of false negativity. Fee Codes: A: [id number], [id number] Performing Lab Location (Unless otherwise specified): [address] 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 Titus Vieyra MD [facility] Electronically Signed On 12/05/2015 11:59 AM TITUS GAUTHIER Patient Name: TIMOTEO COSTELLO Last Updated: 12/05/2015 11:59 AM OPRACTIC ASSISTANT documented in this encounter Plan of Treatment Upcoming Encounters Date Type Department Care Team (Late st Contact Info) Description 11/24/2024 1:00 PM CHIROPRACTIC ASSISTANT Procedure Surgical Procedure Visit [phone] Titus Vieyra MD [address] [place] [address] documented as of this encounter Visit Diagnoses Not on filedocumented in this encounter Additional Health Concerns Assessment Noted Time A fall risk assessment has been complete d for the patient 04/26/2014 7:59 AM CDT documented as of this encounter Care Teams Regional Production Manager Relationship Specialty Start Date End Date Jeison Orozco MD PCP - General 12/25/01 08/12/23 documented as of this encounter
--- OUTSIDE RECORDS SUMMARY | 2024-11-07 07:02 | XMS_ITS | Encounter Summary ---
Author Organization [facility] Address [address] [place] [address] Care Team Providers Care Lieutenant Colonel Name Role Phone Jeison Orozco MD Primary Care Provider Unav ailable Reason for Visit * Reason Onset Date Comments Path 05/08/2015 Encounter Details Date Type Department Care Team (Late st Contact Info) Description 05/08/2015 Telephone Gastroenterology - [facility] [address] [facility] [address] [place], [place] [id number] Titus Vieyra MD [address] [place] [address] [address] [place], [place] [id number] Path Social History Tobacco Use Types Packs/Day [...] Progress Notes * Titus Vieyra MD - 05/08/2015 9:20 AM CDT Repeat colonoscopy 05/04/15 Preoperative Diagnosis: History of polyp (adenoma s/p tattoo/removal at 40 cm) Postoperative Diagnosis: Diverticulosis. Tattoo at 40 cm unremarkable. 10 mm flat cecal polyp (hp).18 mm flat ascending adenoma s/p tattoo/piecemeal resection. 3 mm transverse serrated. I called and discussed the results and recommendations with Tonya Costello and they demonstrated understanding and were agreeable to the recommendations as listed. We discussed it is unclear if this has been completely resected, but may have some residual tissue present. Discussed serial colonoscopies and possible APC fulgeration or surgery. Discussed possible progression of the polyp to more advanced tissue or even a malignancy and the risks of serial colonoscopies with APC including perforation, incomplete ablation of tissue, bleeding, sedation risks, etc. The patient was agreeable to serial colonoscopies with APC --3-6 month repeat colonoscopy with possible APC (needs to be scheduled at hospital) Titus Vieyra MD [facility] CC: Dr Mathur documented in this encounter Plan of Treatment Upcoming Encounters Date Type Department Care Team (Late st Contact Info) Description 11/24/2024 1:00 PM SCRAP SAWYER Procedure Surgical Procedure Visit [phone] Titus Vieyra MD [address] [place] [address] documented as of this encounter Visit Diagnoses Not on filedocumented in this encounter Additional Health Concerns Assessment Noted Time A fall risk assessment has been complete d for the patient 04/26/2014 7:59 AM CDT documented as of this encounter Care Teams Lieutenant Colonel Relationship Specialty Start Date End Date Jeison Orozco MD PCP - General 12/25/01 08/12/23 documented as of this encounter
--- OUTSIDE RECORDS SUMMARY | 2024-11-07 07:02 | XMS_ITS | Encounter Summary ---
Author Organization [facility] Address [address] [place] [address] Care Team Providers Care Laborer Salvage Name Role Phone Jeison Orozco MD Primary Care Provider Unav ailable Reason for Referral * Tests (Routine) - Closed Specialty Diagnoses / Procedures Referred By Delmi eze Referred To Contact Cardiology Diagnoses Atrial fibrillation (HCC) Xu Rosenberg MD [address] [place] [address] [address] [place] [address] Referral ID Status Reason Start Date Expiration Date Visits Re quested Visits Authorized [id number] Closed 05/27/2014 05/27/2015 3 3 Scheduling Instructions THIS IS NOT A REFERRAL This service can be performed at the following locations. Please call one of the numbers listed below to schedule an appointment. [facility] Cardiology at [facility] - [address] [place] [address], [address], [place] (phone: [phone]) [facility] Cardiology at [facility] - [address] [facility], [address] [place] (phone: [phone]) [facility] Cardiology at [facility] - [address] [facility] Eneida Vanessa Luu, and Tee - Travis Verdugo [place], and [place] - If you are confident that your benefit plan will not require a referral or authorization, please feel free to schedule your appointment immediately. However, if you are unsure about the requirements for authorization, please wait 72 hours and then contact the [facility] at . At that time, you will be provided with any authorization numbers or be assured that none are required. You can then schedule your appointment. Failure to obtain required authorization numbers can create reimbursement difficulties for you. * OFFICE VISIT (Routine) - Closed Specialty Diagnoses / Procedures Referred By Contac t Referred To Contact Cardiology Diagnoses Atrial fibrillation (HCC) Xu Rosenberg MD [address] [facility] [address] [place] [address] Referral ID Status Reason Start Date Expiration Date Visits Re quested Visits Authorized [id number] Closed 05/27/2014 05/27/2015 1 1 Scheduling Instructions THIS IS NOT A REFERRAL This service can be performed at the following locations. Please call one of the numbers listed below to schedule an appointment. [facility] Cardiology at [facility] - [address] [place] [address], [address] (phone: [phone]) [facility] Cardiology at [facility] - [address] [place] [address] [address] [place] (phone: [phone]) [facility] Cardiology at [facility] - [address] [place] [address] Eneida Vanessa Luu, and Tee - Travis Verdugo, Micheal, and Kalathivecarolyn - If you are confident that your benefit plan will not require a referral or authorization, please feel free to schedule your appointment immediately. However, if you are unsure about the requirements for authorization, please wait 72 hours and then contact the [facility] at . At that time, you will be provided with any authorization numbers or be assured that none are required. You can then schedule your appointment. Failure to obtain required authorization numbers can create reimbursement difficulties for you. Reason for Visit * Reason Comments Atrial Fibrillation s/p ablation Encounter Details Date Type Department Care Team (Late st Contact Info) Description 05/27/2014 9:00 AM CDT Office Visit Cardiology - [facility], [place] [address] [place] [address] Xu Rosenberg MD [address] [place], [place] [id number] Atrial fibrillation (HCC) (Primary Dx) Social History Tobacco Use Types [...] Sign Reading Time Taken Comments Blood Pressure 102/74 05/27/2014 9:11 AM CDT Pulse 74 05/27/2014 9:11 AM CDT reg Temperature - - Respiratory Rate - - Oxygen Saturation - - Inhaled Oxygen Concentration - - Weight 67.6 kg (149 lb) 05/27/2014 9:11 AM CDT Height 168.9 cm (5' 6.5 ) 05/27/2014 9:11 AM CDT Body Mass Index 23.69 05/27/2014 9:11 AM CDT documented in this encounter Functional Status Functional Status Response Date of Assess ment Hearing Problems? No 04/26/2014 Vision Problems? No 04/26/2014 Difficulty walking? No 04/26/2014 Difficulty dressing or bathing? No 04/26/2014 Problems with daily activities? No 04/26/2014 Cognitive Status Response Date of Assessm ent Memory Problems? No 04/26/2014 documented as of this encounter Patient Instructions * Patient Instructions* Bessie Pizano - 05/27/2014 9:33 AM CDT Schedule 30-day TTM to be done around the end of June. Follow up with Dr. Rosenberg after the monitor. You can stop eliquis at the 3 month point after the ablation. documented in this encounter Progress Notes * Xu Rosenberg MD - 06/10/2014 9:24 AM CDT I was asked by Dr. Blackmon to evaluate for atrial fibrillation 53 year old female with no sig PMHx but with strong fam hx of AF who presents for AF eval. Admittedtwice in last year with AF/RVR. Once requiring shock after 3 days, never had for more than 3 days. No syncope but some LH with yoga in past. Now occuring almost every day, sometimes for minutes. Cryo 04/25/14 --> no recurrence since Denies chest pain, shortness of breath, palpitations, lightheadedness, syncope, orthopnea, paroxysmal nocturnal dyspnea, or edema. ROS: all other systems were reviewed and were negative Past Medical History Diagnosis Date ??? AF (atrial fibrillation) ([facility]) 06/21/2013 ??? Arrhythmia PAF Allergies: Penicillins Rash Medications: Smoking status: Former Smoker For 10.00 Years Smokeless tobacco: Never Used Comment: quit 26 yrs ago Alcohol Use: Yes Comment: socially, 7 drinks/week Family history: no sudden cardiac . Brother and sister both with AF Physical: Wt Readings from Last 3 Encounters: 05/27/14 : 149 lb (67.586 kg) 04/22/14 : 149 lb (67.586 kg) 03/16/14 : 145 lb (65.772 kg) General: Alert and oriented in no apparent distress. HEENT: No focal deficits. Neck: No JVD, carotids 2+ no bruits. Cardiac: Regular rate and rhythm, S1, S2 normal, no murmur, rub or gallop. Lungs: Clear without wheezes, rales, rhonchi or dullness. Normal excursions and effort. Abdomen: Soft, non-tender. Extremities: Without clubbing, cyanosis or edema. Peripheral pulses are 2+. Neurologic: Alert and oriented, normal affect. Skin: Warm and dry. Labs: HEM: @LABRCNTIP[WBC:5,HGB:5,PLT:5,PROTIME:5,PTT:5,INR:5@ Chem: @LABRCNTIP[NA:5,K:5,CL:5,CO2:5,BUN:5,CREATININE:5,GLUCOSE:5,CALCIUM:5,M,ALT:5 ,AST:5,ALKPHOS:5,BILITOT:5,BILIDIR:5@ Last Cardiac: @LABRCNTIP[CKTOTAL:5,CKMB:5,CKMBINDEX:5,TROPONINI:5@ Data: ?? ECG: (personally reviewed): 06/08 - NSR 57 ?? Echo: 05/08 - normal, EF 57 ?? Stress: 08/08 - no ischemia, EF 57 Impression: 1. sx'atic pAF CHADSVASC=1 on asa Plan: AF - s/p cryo - doing well at 1 month point. Get 30d monitor, f/u after, cont ac x 3 months Xu Rosenberg MD Clinical Cardiac Electrophysiology [facility] documented in this encounter Plan of Treatment Upcoming Encounters Date Type Department Care Team (Late st Contact Info) Description 11/24/2024 1:00 PM FAMILY LIFE COUNSELOR Procedure Surgical Procedure Visit [phone] Titus Vieyra MD [address] [place] [address] [address] [place] [address] Scheduled Orders Name Type Priority Associated Diagnoses Orde r Schedule OFFICE/OUTPT VISIT,EST,LEVL IV PROCEDURES Routine Atrial fibrillation (HCC) Ordered: 06/10/2014 Scheduled Referrals Name Type Priority Associated Diagnoses Orde r Schedule FOLLOW-UP, CARDIO ([facility]) Referral Routine Atrial fibrillation (HCC) Expected: 08/25/2014 (Approximate), Expires: 05/27/2015 documented as of this encounter Procedures Procedure Name Priority Date/Time Associated Diagnosis Comments ECG ROUTINE ECG W/LEAST 12 LDS W/I&R Routine 06/15/2014 9:42 AM CDT Atrial fibrillation (HCC) documented in this encounter Results * EVENT Fri 30D, CARDIO ([facility]) (10/13/2014) Xu Rosenberg MD REFERRAL [facility] * ELECTROCARDIOGRAM, COMPLETE (06/15/2014 9:42 AM CDT) Xu Rosenberg MD PROFESSION[facility]ES[facility] documented in this encounter Visit Diagnoses Diagnosis Atrial fibrillation (HCC)- Primary Atrial fibrillation documented in this encounter Additional Health Concerns Assessment Noted Time A fall risk assessment has been complete d for the patient 04/26/2014 7:59 AM CDT documented as of this encounter Care Teams Laborer Salvage Relationship Specialty Start Date End Date Jeison Orozco MD PCP - General 12/25/01 08/12/23 documented as of this encounter
--- OUTSIDE RECORDS SUMMARY | 2024-11-07 07:02 | XMS_ITS | Encounter Summary ---
Author Organization [facility] Address [address] [place] [address] Care Team Providers Care Ferry Terminal Supervisor Name Role Phone Jeison Orozco MD Primary Care Provider Unav ailable Encounter Details Date Type Department Care Team (Late st Contact Info) Description 11/30/2015 Telephone Gastroenterology - [facility] [address] [facility] [address] [place], [place] [address] Titus Vieyra MD [address] [facility] [address] [place], [place] [id number] Social History Tobacco Use Types Packs/Day Years [...] encounter Progress Notes * Devante Garnett - 11/30/2015 9:28 AM CST Notified Tonya Costello regarding instructions for the Colonoscopy bowel PREP ?? Clear liquid diet entire day prior to the procedure ?? Reviewed with Tonya Costello the start times for the bowel prep ?? Verified date/location for procedure ?? Directions/prescription/map/scheduling sheet mailed to patient ?? Patient to call us if prep is not received in 4 business days Spoke to pt WASHER documented in this encounter Plan of Treatment Upcoming Encounters Date Type Department Care Team (Late st Contact Info) Description 11/24/2024 1:00 PM RACK WASHER Procedure Surgical Procedure Visit [phone] Titus Vieyra MD [address] [place] [address] documented as of this encounter Visit Diagnoses Not on filedocumented in this encounter Additional Health Concerns Assessment Noted Time A fall risk assessment has been complete d for the patient 04/26/2014 7:59 AM CDT documented as of this encounter Care Teams Ferry Terminal Supervisor Relationship Specialty Start Date End Date Jeison Orozco MD PCP - General 12/25/01 08/12/23 documented as of this encounter
--- OUTSIDE RECORDS SUMMARY | 2024-11-07 07:02 | XMS_ITS | Encounter Summary ---
Author Organization [facility] Address [address] [place] [address] Care Team Providers Care Sr. Payroll Manager Name Role Phone Jeison Orozco MD Primary Care Provider Unav ailable Encounter Details Date Type Department Care Team (Late st Contact Info) Description 05/04/2015 8:00 AM CDT - 05/04/2015 8:30 AM CDT Surgery [facility] [place] [address] [place] [address] Titus Morfin MD [address] [place] [address] [address] [place] [address] COLONOSCOPY, POSSIBLE BIOPSY, POSSIBLE POLYPECTOMY [address] Surgery Details Date/Time Status Location OR Service Patient Class Case Class Case Type Trauma Case? 05/04/2015 8:00 AM Posted [facility] OR Gastroenterology Outpatient Panel 1 Procedure LRB Anes Op Region Wound Class Comments COLONOSCOPY, POSSIBLE BIOPSY, POSSIBLE POLYPECTOMY [address]38 N/A Conscious Sedation Clean Contaminated COLONOSCOPY with polypectomy Surgeon Surgeon Role Service Panel Titus Morfin MD Primary Gastroenterology 1 documented in this encounter Social History Tobacco Use Types Packs/Day [...] Sign Reading Time Taken Comments Blood Pressure 123/66 05/04/2015 7:10 AM CDT Pulse 65 05/04/2015 7:10 AM CDT Temperature 36.8 ??C (98.2 ??F) 05/04/2015 7:10 AM CD T Respiratory Rate 18 05/04/2015 7:10 AM CDT Oxygen Saturation - - Inhaled Oxygen Concentration - - Weight 67.1 kg (148 lb) 05/04/2015 7:10 AM CDT Height 167.6 cm (5' 6 ) 05/04/2015 7:10 AM CDT Body Mass Index 23.89 05/04/2015 7:10 AM CDT documented in this encounter Functional Status Functional Status Response Date of Assess ment Hearing Problems? No 04/26/2014 Vision Problems? No 04/26/2014 Difficulty walking? No 04/26/2014 Difficulty dressing or bathing? No 04/26/2014 Problems with daily activities? No 04/26/2014 Cognitive Status Response Date of Assessm ent Memory Problems? No 04/26/2014 documented as of this encounter Medications at Time of Discharge Medication Sig Dispensed Refills Start Date End Date BIOTIN OR Take 3 tablets by mouth daily. 05/31/2015 Estradiol (VAGIFEM) 10 MCG Vaginal TabIndications:AF (atrial fibrillation) (HCC) Place vaginally. Use twice weekly 09/13/2018 Ibuprofen 200 MG Oral TabIndications:Fatigue,Ba ck pain,Cough,History of foreign travel,Other, multiple, and unspecified sites, insect bite, nonvenomous, without mention of infection(919.4) 1 TABLET EVERY 4 TO 6 HOURS NEEDED 08/02/2017 ZOLPIDEM TARTRATE 5 MG OR TABS 1 TABLET AT BEDTIME 10 Tab 0 02/25/2011 05/05/2018 documented as of this encounter H&P Notes * Titus Morfin MD - 05/04/2015 8:16 AM CDT Timoteo Selena Costello presents for endoscopy. Reviewed prior endoscopies w/ her. Denies gi bleeding, abdominal pain, altered bowel habits, or fhx of crc. The risks and benefits of the procedure were discussed in detail with the patient, including the risks of bleeding, infection, inaccuracy or polyp miss rate, side effect of medication and allergy to medication, risk of sedation, and perforation among others. Additionally, radiological alternatives to the procedure are available and the risks and benefits of these alternatives were discussed with the patient. The patient demonstrated understanding. Past Medical History Diagnosis Date ??? AF (atrial fibrillation) (HCC) 06/21/2013 ??? Arrhythmia PAF Current Outpatient Prescriptions on File Prior to Encounter: BIOTIN OR Take 3 tablets by mouth daily. Disp: Rfl: Estradiol (VAGIFEM) [address] vaginally[address] Use twice weekly Disp: Rfl: Ibuprofen 200 MG Oral Tab 1 TABLET EVERY 4 TO 6 HOURS NEEDED Disp: Rfl: [DISCONTINUED] Na Sulfate-K Sulfate-Mg Sulf (SUPREP BOWEL PREP) Oral Solution Dispense one suprep bowel kit Disp: 2 Bottle Rfl: 0 [DISCONTINUED] Diltiazem HCl ER Coated Beads (CARDIZEM CD) 120 MG Oral Capsule SR 24 Hr TAKE 1 CAPSULE DAILY Disp: 90 capsule Rfl: 0 [DISCONTINUED] aspirin 81 MG Oral Tab Take 81 mg by mouth daily. Disp: Rfl: No current facility-administered medications on file prior to encounter. Penicillins Rash Past Surgical History REMOVAL OF COCCYX OTHER SURGICAL HISTORY Comment facial plastic surgery COLONOSCOPY,BIOPSY 08/03/2012 Comment small cecal and ascending colon polps. Also, 13 mm flat polyp at about 40 cm from anus was tattooed was adenoma. Joaquin-colonic diverticulosis COLONOSCOPY,REMV LESN,SNARE 08/03/2012 COLONOSCPY, FLEXIBLE, PROXIMAL TO SPLENIC FLEXURE; W/DIRECTED SUBMUCOSA INJECTION(S), ANY SXUMOBZJA92/8/2012 FLEX SIG 12/2012 Comment 3 mm sigmoid polyp was adenoma. No recurrent polyp at tattoo site at 40 cm SIGMOIDOSCOPY,BIOPSY 01/11/2013 Comment Procedure: FLEXIBLE SIGMOIDOSCOPY WITH BIOPSY, POLYPECTOMY; Surgeon: Titus Morfin MD;Location: [facility] ROS: As above. No anne, visual/hearing changes, [...] nt/nd. EXT: no edema A/p 1 plan colonsocopy, cherrie sedation well in the past, today. Pt demonstrates understanding and is agreeable. Titus Morfin MD [facility] documented in this encounter OR Notes * Operative Report - Titus Morfin MD - 05/04/2015 8:16 AM CDT ENDOSCOPY OPERATIVE REPORT Patient Name: Timoteo Costello Date of : 1960 Date of Procedure: 05/04/2015 Preoperative Diagnosis: History of polyp (adenoma s/p tattoo/removal at 40 cm) Postoperative Diagnosis: Diverticulosis. Tattoo at 40 cm unremarkable. 10 mm flat cecal polyp. 18 mm flat ascending polyp s/p tattoo/piecemeal resection. 3 mm transverse polyp. Procedure Performed: Colonoscopy with EMR (injection for lifting/tattooing and then hot snare and clipping), colonoscopy with snare, colonoscopy with biopsy Anesthesia Given: Benadryl 25 mg IV, Versed 8 mg IV, fentanyl 100 mcg IV all given in divided dosesas per protocol. Endoscopist: Titus Morfin MD Procedure: After the patient was interviewed [...] was carefully examined and the preparation was adequate. The patient tolerated the procedure well. FINDINGS: Tortuous colon. Challenging due to location of polyp in the ascending colon, challenging to position the snare in correct plane In the proximal ascending colon, the scope was then retroflexed and withdrawn to the distal ascending colon while evaluating the mucosa. The scope was then straightened and then reinserted into the cecum and withdrawn in the forward viewing position. A flat 10 mm polyp was seen in the cecum and was removed with snare electrocautery. Appeared completely removed. A flat, subtle 18 mm polyp noted in ascending colon nestled between two folds. First injected/lifted with tattooing ink. Position was hard to capture within the snare. The regular snare was only ableto remove about 10-20 %, the rest was too flat to be captured despite attempting to change the angle. I then used a spiral snare and the remaining polyp was piecemeal removed (hot snare still) in 2 more pieces. Polypectomy site looked good without obvious residual polyp, bleeding, or perforation. Given the size of the lesion, I did place 3 clips across the defect to help reduce bleeding risk, appeared to be well positioned A flat 3 mm polyp was seen in the transverse and was removed with the cold biopsy forceps. Unremarkable tattoo at 40 cm. Diverticular changes of the descending and sigmoid colon were noted. The overall appearance of the mucosa was normal. At the anal verge the endoscope was retroverted, internal hemorrhoids were seen, no other abnormalities were identified. Throughtout the procedure vital signs were stable. PLAN: Patient is to follow a high fiber, low fat diet and followup with primary physician for routine care. Clear liquids today. Advance diet tomorrow if no symptoms. No asa/nsaids x 5 days Consider 3-6 month repeat colonoscopy with possible APC (needs to be scheduled at hospital) if ascending polyp is precancerous. I will communicate results of the pathology with the patient. The patient and transit bus driver were informed of the endoscopic findings and was also given a copy of findings, postoperative instructions, and postoperative precautions. Titus Morfin MD [facility] documented in this encounter Plan of Treatment Upcoming Encounters Date Type Department Care Team (Late st Contact Info) Description 11/24/2024 1:00 PM CONSTRUCTION PROJECT ASSISTANT Procedure Surgical Procedure Visit [phone] Titus Morfin MD [address] [place] [address] [address] [place] [address] documented as of this encounter Procedures Procedure Name Priority Date/Time Associated Diagnosis Comments COLONOSCOPY, POSSIBLE BIOPSY, POSSIBLE POLYPECTOMY [id number] 05/04/2015 8:12 AM CDT Follow-up examination, following other surgery Personal history of colonic polyps Benign neoplasm of colon Diverticulosis of colon (without mention of hemorrhage) Other congenital anomalies of intestine Internal hemorrhoids without mention of complication COLONOSCOPY, POSSIBLE BIOPSY, POSSIBLE POLYPECTOMY 82499 05/04/2015 8:12 AM CDT Follow-up examination, following other surgery Personal history of colonic polyps Benign neoplasm of colon Diverticulosis of colon (without mention of hemorrhage) Other congenital anomalies of intestine Internal hemorrhoids without mention of complication COLONOSCOPY, POSSIBLE BIOPSY, POSSIBLE POLYPECTOMY 09847 05/04/2015 8:12 AM CDT Follow-up examination, following other surgery Personal history of colonic polyps Benign neoplasm of colon Diverticulosis of colon (without mention of hemorrhage) Other congenital anomalies of intestine Internal hemorrhoids without mention of complication COLONOSCOPY STOMA DX INCLUDING COLLJ SPEC SPX Routine 05/04/2015 7:05 AM CDT Personal history of colonic polyps documented in this encounter Results * PATHOLOGY TISSUE P (05/04/2015 12:00 AM CDT) Tissue specimen (specimen) TISSUE SPECIMEN / Unknown 05/04/2015 05/04/2015 Narrative [facility] - 05/05/2015 5:24 PM CDT CASE: [id number] PATIENT: TIMOTEO COSTELLO [facility] Rec. #: [id number] Date: 1960 Gender: F Location: [facility] Billing #: [id number] SSN: [id number] Ref Provider: TITUS MORFIN Ref Provider: Selena OROZCO Date of Service: 05/04/2015 Received Date: 05/04/2015 Final Diagnosis: A- Transverse colon polyp: -Sessile serrated polyp. B- Cecal polyp: -Fragments of cauterized benign mucosa. ??See comment. C- Ascending colon polyp: -Fragments of tubular adenoma with tattoo pigment in the submucosa. Comment: In part B, there was extensive cautery artifact. ??By architecture, one could recognize some hyperplastic polyp-type features. ??The base of those were small and pointed rather than horizontally expansile. ??This pattern favors a hyperplastic polyp over a sessile serrated polyp. Ancillary Studies: None Gross Description: A- Labeled with the patient's name, medical record number, transverse polyp, received in formalin: ??Specimen consists of three pieces of pink to white-tracy soft tissue, each measuring 0.1 cm in greatest dimension. The specimen is submitted in toto in cassette A. B- Labeled with the patient's name, medical record number, cecal polyp, received in formalin: ??Specimen consists of one piece of pink to white-tracy soft tissue measuring 0.2 cm in greatest dimension. The specimen is submitted in toto in cassette B. C- Labeled with the patient's name, medical record number, ascending polyp, received in formalin: ??Specimen consists of a pink to brown-tracy polyp measuring 0.8 x 0.7 x 0.3 cm. ??The margin of resection is inked black, the specimen is bisected along the long axis and submitted in toto in cassette C. CP/tjf Clinical History: Personal history of colonic polyps Intraoperative Diagnosis: None Final Diagnosis by Ayush De La Rosa MD Electronically signed 05/05/2015 Titus Morfin MD PATHOLOGY/CYTOLOGY O RDERABLES Performing Organization Address City/State/[facility] Co de Phone Number [facility] [address] [place] [address] documented in this encounter Visit Diagnoses Diagnosis Personal history of colonic polyps Follow-up examination, following other surgery Personal history of colonic polyps Benign neoplasm of colon Diverticulosis of colon (without mention of hemorrhage) Other congenital anomalies of intestine Internal hemorrhoids without mention of complication documented in this encounter Additional Health Concerns Assessment Noted Time A fall risk assessment has been complete d for the patient 04/26/2014 7:59 AM CDT documented as of this encounter Care Teams Sr. Payroll Manager Relationship Specialty Start Date End Date Jeison Orozco MD PCP - General 12/25/01 08/12/23 documented as of this encounter
--- OUTSIDE RECORDS SUMMARY | 2024-11-07 07:02 | XMS_ITS | Encounter Summary ---
Author Organization [employer] Address [address] [place] [address] Care Team Providers Care Flux Mixer Name Role Phone Jeison Orozco MD Primary Care Provider Unav ailable Reason for Referral * Procedure (Urgent) - Closed Specialty Diagnoses / Procedures Referred By Delmi zee Referred To Contact Gastroenterology Diagnoses Personal history of colonic polyps Procedures COLONOSCOPY,DIAGNOSTIC Titus Vieyra MD [address] [place] [address] Titus Vieyra MD [address] [place] [address] Referral ID Status Reason Start Date Expiration Date Visits Re quested Visits Authorized [id number] Closed 05/04/2015 08/02/2015 3 3 Scheduling Instructions This department is supported by [facility] and sees patients 18 years and older. If your appointment has not been made for you during today's visit, please refer to the scheduling instructions below. HFS and [facility] patients should call the department directly to schedule their appointment. Your physician has referred you to a Senior Laboratory Technician affiliated with [facility] or for a Gastroenterology test. To schedule your appointment, please call [phone] [facility] in [place] (on [facility]): [address] [place] [address], [address], [address], [place] [address] [facility] in [place]: [address] [place] [address], [place] [address] [facility] [place] ([facility]): [address], [address], [place] [address] [facility] in [place]: [address], [address], [place] [address] [facility] in [place]: [address], [address], [place] [address] [facility] in [facility]): [address], [address], [place] [address] [facility] in [facility]): [address], [address], [place] [address] [facility] in [place]: [address], [address], [place] [address] For more information about [facility] physicians and locations, visit: [email or web address] In order to insure proper patient identification, [...] office or the Utilization Management Department at [phone], seventy-two (72) hours after the order is placed. Referrals can not be entered retrospectively. IF YOU HAVE PPO INSURANCE COVERAGE If your medical insurance is a PPO, it is the patient's responsibility to confirm that any provider, vendor and/or facility outside of [facility] is in your network. Although your PPO insurance may not require referrals, there are certain procedures (MRI, Nuclear Stress Test, Surgery, etc.) that may require an authorization from your insurance company. As long as the service is being performed at [facility], the [facility] staff will obtain the necessary authorization on your behalf. IF YOU HAVE HMO INSURANCE COVERAGE Your insurance requires a referral from your Primary Care Physician. [facility] will obtain authorization from your insurance company for services ordered by your [facility] PCP or [facility] specialist. A referral is not a guarantee of benefit, and we highly recommend that you call your insurance company to verify your coverage Encounter Details Date Type Department Care Team (Late st Contact Info) Description 04/04/2015 8:30 AM CDT Nurse Only Gastoenterology - Celestine Atkins, [place] [address] [place] [address] Charge Entered Social History Tobacco [...] - - Weight 68 kg (150 lb) 04/04/2015 8:32 AM CDT Height 167.6 cm (5' 6 ) 04/04/2015 8:32 AM CDT Body Mass Index 24.21 04/04/2015 8:32 AM CDT documented in this encounter Functional Status Functional Status Response Date of Assess ment Hearing Problems? No 04/26/2014 Vision Problems? No 04/26/2014 Difficulty walking? No 04/26/2014 Difficulty dressing or bathing? No 04/26/2014 Problems with daily activities? No 04/26/2014 Cognitive Status Response Date of Assessm ent Memory Problems? No 04/26/2014 documented as of this encounter Progress Notes * Radha Gutiérrez RN - 04/04/2015 8:32 AM CDT TELEPHONE CONSULT -DEPARTMENT OF GASTROENTEROLOGY CHIEF COMPLAINT: Personal history of colon polyps 04/04/2015 Tonya M Pravin [id number] (home) [phone] (work) Physician:Titus Vieyra MD Conducted by: Radha Gutiérrez RN 54 year old 1960 female Latex Allergy: No Selena Orozco MD Estimated body mass index is 24.22 kg/(m^2) as calculated from the following: Height as of this encounter: 5' 6 (1.676 m). Weight as of this encounter: 150 lb (68.04 kg). Tonya Costello GI History Findings: Colonoscopy/Year Flex sig 01-11-13 Colonoscopy 08-03-12 Polyps Removed from the : sigmoid colon TA Yes HP No Upper Endoscopy /Year No Allergies: Penicillins Rash Medications: Current Outpatient Prescriptions: Diltiazem HCl ER Coated Beads (CARDIZEM CD) 120 MG Oral Capsule SR 24 Hr TAKE 1 CAPSULE DAILY Patient not taking Disp: 90 capsule Rfl: 0 BIOTIN OR Take 3 tablets by mouth daily.Patient not taking Disp: Rfl: Estradiol (VAGIFEM) [address] vaginally. Use twice weekly Disp: Rfl: aspirin 81 MG Oral Tab Take 81 mg by mouth daily.Patient not taking Disp: Rfl: Ibuprofen 200 MG Oral Tab 1 TABLET EVERY 4 TO 6 HOURS NEEDED Disp: Rfl: HISTORY: Past Medical History Diagnosis Date ??? AF [...] TO SPLENIC FLEXURE; W/DIRECTED SUBMUCOSA INJECTION(S), ANY CXYDBPJGB31/8/2012 FLEX SIG 12/2012 Comment 3 mm sigmoid polyp was adenoma. No recurrent polyp at tattoo site at 40 cm SIGMOIDOSCOPY,BIOPSY 01/11/2013 Comment Procedure: FLEXIBLE SIGMOIDOSCOPY WITH BIOPSY, POLYPECTOMY; Surgeon: Titus Vieyra MD;Location: [facility] No family history on file. Smoking Status: Former Smoker Packs/Day: 0.00 Years: 10 Smokeless Status: Never Used Comment: quit 26 yrs ago Alcohol Use: Yes Comment: 7 drinks/week Review of Systems: Thyroid problems No Chronic Kidney issues No IF on dialysis please do not schedule at the [facility] Immune disorders No Overall General Health Good Yes Hearing aides No CV issues No Internal Defibrillator or pacemaker No Anxiety or depression No Rash/Lesions No Prep issues No Neuro issues No COPD/Asthma No History of MRSA No STAR No HPI as reported by the patient: Unintentional weight loss No Abdominal Pain No Constipation- Chronic NO Change in bowel habits No Blood in stool No Anemia No Heartburn No Indigestion No Difficulty swallowing No Is there anything else that we need to know that would impact your procedure? No Surgery Schedule Date: Procedure time: Location: The patient was instructed that a friend or relative will need to [facility] the [facility] the patient will be sedated and unable to drive. Use of taxi or limo services are not allowed by the policies of all endoscopy centers that service our patients. If the patient can not find a road driver, the patient has the option of having the procedure be a performed without sedation. Diet, prep and medications reviewed with the Tonya Costello. E-scribed bowel prep to the patients preferred pharmacy. PREP: SuPrep Two day bowel prep instructions given? No Two (2) days prior to procedure: drink only clear liquids with calories not just water ALL DAY- NO SOLID FOOD At 4 PM: Drink 1 bottle of Magnesium citrate 10 oz- lemon/ [place] flavor only Day prior: Drink only clear liquids with calories not just water ALL DAY- NO SOLID FOOD From 6-8 PM: Drink 1st part of solution 1/2 Gallon (2 L) of PEG Day of procedure: orthopedic nurse about 6 hours prior to colonoscopy: Drink 2nd part of solution 1/2 Gallon (2 L) of PEG Nothing by mouth 4 hours prior to procedure documented in this encounter Plan of Treatment Upcoming Encounters Date Type Department Care Team (Late st Contact Info) Description 11/24/2024 1:00 PM CARBON ROD INSERTER Procedure Surgical Procedure Visit [phone] Titus Vieyra MD [address] [place] [address] [address] [place] [address] Scheduled Orders Name Type Priority Associated Diagnoses Orde r Schedule UNLISTED E/M SERVICE PROCEDURES Routine Personal history of colonic polyps Ordered: 04/04/2015 Scheduled Referrals Name Type Priority Associated Diagnoses Orde r Schedule COLONOSCOPY DIAGNOSTIC - REFERRAL Referral Routine Personal history of colonic polyps Ordered: 04/04/2015 documented as of this encounter Visit Diagnoses Diagnosis Personal history of colonic polyps- Primary documented in this encounter Additional Health Concerns Assessment Noted Time A fall risk assessment has been complete d for the patient 04/26/2014 7:59 AM CDT documented as of this encounter Care Teams Flux Mixer Relationship Specialty Start Date End Date Jeison Orozco MD PCP - General 12/25/01 08/12/23 documented as of this encounter
--- OUTSIDE RECORDS SUMMARY | 2024-11-07 07:02 | XMS_ITS | Encounter Summary ---
Author Organization [facility] Address [address] [place] [address] Care Team Providers Care Senior Data Developer Name Role Phone Jeison Orozco MD Primary Care Provider Unav ailable Encounter Details Date Type Department Care Team (Latest Contact Info) Description 05/04/2015 7:00 AM CDT - 05/04/2015 11:59 PM CDT Hospital Encounter [facility] [address] [place] [address] Personal history of colonic polyps Discharge Disposition: Home or Self Care Social History Tobacco Use Types Packs/Day Years [...] Sign Reading Time Taken Comments Blood Pressure 127/68 05/04/2015 9:33 AM CDT Pulse 59 05/04/2015 9:33 AM CDT Temperature 36.1 ??C (97 ??F) 05/04/2015 9:02 AM CDT Respiratory Rate 16 05/04/2015 9:33 AM CDT Oxygen Saturation - - Inhaled [...] (VAGIFEM) 10 MCG Vaginal TabIndications:AF (atrial fibrillation) ([facility]) Place vaginally. Use twice weekly 09/13/2018 Ibuprofen [...] TO SPLENIC FLEXURE; W/DIRECTED SUBMUCOSA INJECTION(S), ANY [id number]/8/2012 FLEX SIG 12/2012 Comment 3 mm sigmoid polyp was adenoma. No recurrent polyp at tattoo site at 40 cm SIGMOIDOSCOPY,BIOPSY 01/11/2013 Comment Procedure: FLEXIBLE SIGMOIDOSCOPY WITH BIOPSY, POLYPECTOMY; Surgeon: Titus Morfin MD;Location: [facility] ROS: As above. No anne, visual/hearing [...] understanding and is agreeable. Titus Morfin MD [facility] documented in this encounter OR Notes [...] pathology with the patient. 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 Titus Morfin MD [facility] documented in this encounter Plan of Treatment Upcoming Encounters Date Type Department Care Team (Late st Contact Info) Description 11/24/2024 1:00 PM EXCAVATOR BACKHOE OPERATOR Procedure Surgical Procedure Visit [phone] Titus Morfin MD [address] [facility] [address] [place] [address] documented as of this encounter Procedures Procedure Name Priority Date/Time Associated Diagnosis Comments COLONOSCOPY, POSSIBLE BIOPSY, POSSIBLE POLYPECTOMY [id number] 05/04/2015 8:12 AM CDT Follow-up examination, following other surgery Personal history of colonic polyps Benign neoplasm of colon Diverticulosis of colon (without mention of hemorrhage) Other congenital anomalies of intestine Internal hemorrhoids without mention of complication COLONOSCOPY, POSSIBLE BIOPSY, POSSIBLE POLYPECTOMY 51342 05/04/2015 8:12 AM CDT Follow-up examination, following other surgery Personal history of colonic polyps Benign neoplasm of colon Diverticulosis of colon (without mention of hemorrhage) Other congenital anomalies of intestine Internal hemorrhoids without mention of complication COLONOSCOPY, POSSIBLE BIOPSY, POSSIBLE POLYPECTOMY 65572 05/04/2015 8:12 AM CDT Follow-up examination, following [...] (specimen) TISSUE SPECIMEN / Unknown 05/04/2015 05/04/2015 [facility] - 05/05/2015 5:24 PM CDT CASE: [id number] PATIENT: TIMOTEO COSTELLO [facility]. Rec. #: [id number] Date: 1960 Gender: F [place] [facility] Billing #: [id number] SSN: [id number] Ref Provider: TITUS MORFIN Ref Provider: Selena [...] MD PATHOLOGY/CYTOLOGY O RDERABLES Performing Organization Address [facility] Co de Phone Number [facility] [address] [place] [address] documented in this encounter Visit Diagnoses Diagnosis Personal history of colonic polyps documented in this encounter Additional Health Concerns Assessment Noted Time A fall risk assessment has been complete d for the patient 04/26/2014 7:59 AM CDT documented as of this encounter Care Teams Senior Data Developer Relationship Specialty Start Date End Date Jeison Orozco MD PCP - General 12/25/01 08/12/23 documented as of this encounter
--- OUTSIDE RECORDS SUMMARY | 2024-11-07 07:02 | XMS_ITS | Encounter Summary ---
Author Organization [facility] Address [address] [place] [address] Care Team Providers Care Fiberglass Technician Name Role Phone Sona Saenz MD Primary Care Provider [phone] Encounter Details Date Type Department Care Team (Late st Contact Info) Description 04/22/2014 Orders Only Cardiology - [facility], [place] [address] [address] [place] [address] Xu Rosenberg MD [address] [facility] [address] [place], [place] [id number] AF (atrial fibrillation) ([facility]); Pre-procedure lab exam Social History Tobacco Use Types Packs/Day Years Used Date Smoking Tobacco: Former Cigarettes Smokeless Tobacco: Never Comments:quit 21 yrs ago Alcohol Use Standard Drinks/Week Comments Yes 0 (1 standard drink = 0.6 oz pur e alcohol) socially Sex and Gender Information Value Date Recorded Sex Assigned at Not on file Gender Identity Female 07/03/2021 5:51 PM CDT Sexual Orientation Not on file documented as of this encounter Progress Notes * Xu Rosenberg MD - 04/27/2014 3:31 PM CDTQuick Note: noted * Bessie Pizano - 04/22/2014 4:07 PM CDTQuick Note: Pre-op labs. Pt notified of results. Verbalized understanding. documented in this encounter Plan of Treatment Upcoming Encounters Date Type Department Care Team (Late st Contact Info) Description 11/24/2024 1:00 PM TOP DISTRIBUTION EXECUTIVE Procedure Surgical Procedure Visit [phone] Titus Vieyra MD [address] [place] [address] [address] [place] [address] documented as of this encounter Procedures Procedure Name Priority Date/Time Associated Diagnosis Comments BASIC METABOLIC PANEL Routine 04/22/2014 8:36 AM CDT AF (atrial fibrillation) (HCC) Pre-procedure lab exam CBC WITH DIFFERENTIAL WITH PLATELET Routine 04/22/2014 8:36 AM CDT AF (atrial fibrillation) (HCC) Pre-procedure lab exam documented in this encounter Results * BASIC METABOLIC PANEL (8) (04/22/2014 8:36 AM CDT) Glucose 89 65 - 99 mg/dL [facility] Blood Urea Nitrogen 13 6 - 24 mg/dL [facility] Creatinine, Serum 0.76 0.57 - 1.00 mg/dL [facility] 1 EGFR IF NONAFRICN AM 89 >59 mL/min/1.73 [facility] 1 EGFR IF AFRICN AM 102 >59 mL/min/1.73 [facility] 1 Bun/Creatinine Ratio 17 9 - 23 [facility] 1 Sodium 139 134 - 144 mmol/L [facility] 1 Potassium 4.4 3.5 - 5.2 mmol/L [facility] 1 Chloride 102 97 - 108 mmol/L [facility] 1 Carbon Dioxide, Total 28 18 - 29 mmol/L [facility] 1 Comment:Please note refere nce interval change Calcium 9.6 8.7 - 10.2 mg/dL [facility] 1 Blood specimen (specimen) 04/22/2014 8:36 AM CDT 04/22/2014 11:56 AM CDT Comment:BLOOD Narrative [facility] - 04/22/2014 4:23 PM CDT Performed at: ??01 - [facility] [address] ??[id number] Sock Boarder: Jair Hou PhD, Phone: ??[phone] Xu Rosenberg MD LAB BLOOD ORDERABLE S [facility] Unknown Unknown [facility] 1 * CBC W DIFFERENTIAL W PLATELET (04/22/2014 8:36 AM CDT) WBC 3.7 3.4 - 10.8 x10E3/uL [facility] 1 RBC 4.27 3.77 - 5.28 x10E6/uL [facility] 1 Hemoglobin 13.1 11.1 - 15.9 g/dL [facility] 1 Hematocrit 39.8 34.0 - 46.6 % [facility] 1 MCV 93 79 - 97 fL [facility] 1 MCH 30.7 26.6 - 33.0 pg [facility] 1 MCHC 32.9 31.5 - 35.7 g/dL [facility] 1 RDW 14.1 12.3 - 15.4 % [facility] 1 Platelet Count 227 150 - 379 x10E3/uL [facility] 1 Comment:Please note refere nce interval change Neutrophils % 54 40 - 74 % [facility] 1 Lymphocytes % 32 14 - 46 % [facility] Monocytes % 8 4 - 12 % [facility] 1 Eosinophils % 5 0 - 5 % [facility] Basophils % 1 0 - 3 % [facility] 1 Neutrophils Absolute 2.0 1.4 - 7.0 x10E3/uL [facility] 1 Lymphocytes Absolute 1.2 0.7 - 3.1 x10E3/uL [facility] 1 Monocytes Absolute 0.3 0.1 - 0.9 x10E3/uL [facility] 1 Eosinophils Absolute 0.2 0.0 - 0.4 x10E3/uL [facility] 1 Basophils Absolute 0.0 0.0 - 0.2 x10E3/uL [facility] 1 Blood specimen (specimen) 04/22/2014 8:36 AM CDT 04/22/2014 11:56 AM CDT Comment:BLOOD Narrative [facility] DEFAULT [facility] - 04/22/2014 4:23 PM CDT Performed at: ??01 - [facility] [address] ??[id number] Sock Boarder: Jair Huo PhD, Phone: ??[phone] Xu Rosenberg MD LAB BLOOD ORDERABLE S [facility] DEFAULT [facility] Unknown Unknown [facility] 1 documented in this encounter Visit Diagnoses Diagnosis AF (atrial fibrillation) (HCC) Atrial fibrillation Pre-procedure lab exam Pre-procedural laboratory examination documented in this encounter Additional Health Concerns Infection Onset Date Last Indicated Resolved Time R/O COVID19 05/03/2020 05/03/2020 05/06/2020 5:10 AM CDT documented as of this encounter Care Teams Fiberglass Technician Relationship Specialty Start Date End Date Sona Saenz MD [address] [address] PCP - General Internal Medicine 06/07/24 documented as of this encounter
--- OUTSIDE RECORDS SUMMARY | 2024-11-07 07:02 | XMS_ITS | Encounter Summary ---
Author Organization [facility] Address [address] [place] [address] Care Team Providers Care Private Watchman Name Role Phone Jeison Orozco MD Primary Care Provider Unav ailable Reason for Visit * Reason Comments Back Pain * Rehab Services (Routine) - Closed Specialty Diagnoses / Procedures Referred By Delmi zee Referred To Contact Rehabilitation Diagnoses Spondylolisthesis at L5-S1 level Scoliosis Cervical spondylosis Ashkan Amin, PA [address] [place] [address] Referral ID Status Reason Start Date Expiration Date Visits Re quested Visits Authorized [id number] Closed 04/27/2015 04/26/2016 12 12 Encounter Details Date Type Department Care Team (Late st Contact Info) Description 06/23/2015 2:30 PM CDT Office Visit Physical Therapy - SchleicherAnkit Collado [address] [facility] [address] [place] [address] Fili Canela, PT [address] [place], [place] [id number] Congenital spondylolisthesis (Primary Dx); Cervical spondylosis without myelopathy Social History Tobacco [...] as of this encounter Progress Notes * Flii Canela, PT - 06/23/2015 3:15 PM CDT MD: Ashkan Amin PT Dx: middle back pain Dx Code: 756.12, 721.0 Visit 7 of SUBJECTIVE: Pain: 2/10 today. Pt. Reports: sore in back. Has to work this weekend and stand for long periods of time. OBJECTIVE: Cervical Spine Deg/Percent Pain Rep. Mot. [...] treatment minutes Assessment: Therapeutic Exercise: UBE 3'/3' Standing w/ SB at back - horizontal abd OTB x12 Standing w/ SB at back - sash OTB x12 Standing w/ SB at back - OH pull OTB x12 Standing w/ SB at back - ER OTB x12 Supine elbow press x10 Wall plank - thoracic rotation w/ breathing x10 R/L 3 way lat stretch w/ SB at table sitting x 10 ea Supine FALs alt R/L x10 Prayer stretch: 4x20 30 minutes Assessment: progressed to exercises in standing. 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 ?? Pt. will report decreased pain from 8/10 to 3/10 at worst. NOT MET ?? Increase active range of motion of seated thoracic rotation to 3 inches bilaterally. NOT MET ?? Pt. will be independent with home exercise program and self management. NOT MET ?? Increase hamstring muscle length with SLR to 60 degrees bilaterally. NOT MET ?? Increase cervical rotation AROM to 70 degrees bilaterally. NOT MET ?? Pt will be able to fall asleep with less pain at night. NOT MET ?? Pt will report improved standing tolerance. NOT MET PLAN: Continue with current interventions. Reassess pt's symptoms and progress HEP as tolerated. documented in this encounter Plan of Treatment Upcoming Encounters Date Type Department Care Team (Late st Contact Info) Description 11/24/2024 1:00 PM EXCEPTIONAL NEEDS TEACHER Procedure Surgical Procedure Visit [phone] Titus Vieyra MD [address] [facility] [address] [place] [address] Scheduled Orders Name Type Priority Associated Diagnoses Orde r Schedule THERAPEUTIC EXERCISES PROCEDURES Routine Congenital spondylolisthesis Cervical spondylosis without myelopathy Ordered: 06/23/2015 MANUAL THERAPY PROCEDURES Routine Congenital spondylolisthesis Cervical spondylosis without myelopathy Ordered: 06/23/2015 documented as of this encounter Visit Diagnoses Diagnosis Congenital spondylolisthesis- Primary Cervical spondylosis without myelopathy documented in this encounter Additional Health Concerns Assessment Noted Time A fall risk assessment has been complete d for the patient 04/26/2014 7:59 AM CDT documented as of this encounter Care Teams Private Watchman Relationship Specialty Start Date End Date Jeison Orozco MD PCP - General 12/25/01 08/12/23 documented as of this encounter
--- OUTSIDE RECORDS SUMMARY | 2024-11-07 07:02 | XMS_ITS | Encounter Summary ---
Author Organization [facility] Address [address] [place] [address] Care Team Providers Care Workers Compensation Consultant Name Role Phone Jeison Orozco MD Primary Care Provider Unav ailable Reason for Visit * Reason Onset Date Comments Patient Question 09/18/2015 Encounter Details Date Type Department Care Team (Late st Contact Info) Description 09/18/2015 Telephone Gastroenterology - [facility], [place] [address] [facility] [address] [place], [place] [id number] Titus Vieyra MD [address] [place] [address] [address] [place], [place] [id number] Patient Question Social History Tobacco Use Types [...] this encounter Progress Notes * Anton Serna 09/18/2015 3:25 PM CST Pt informed. PRESSURE OPERATOR * Titus Vieyra MD - 09/18/2015 2:31 PM CST Should be okay w/in 3-6 months. Either hospital is fine, okay to do at [facility] if available sooner Titus Vieyra MD [facility] Gastroenterology PRESSURE OPERATOR * Anton Serna - 09/18/2015 10:41 AM CST Had colonoscopy/apc last April. Was not clean for rpt 11.19 and 11.[address] Vieyra not available in [facility] until Nov - pt asking if this is too long to wait. Prefers [facility] but will go to [facility] if Dr Vieyra feels she shouldn't wait until Nov. Is ok to with waiting until Dr Vieyra is answering messages PRESSURE OPERATOR documented in this encounter Plan of Treatment Upcoming Encounters Date Type Department Care Team (Late st Contact Info) Description 11/24/2024 1:00 PM HIGH PRESSURE OPERATOR Procedure Surgical Procedure Visit [phone] Titus Vieyra MD [address] [place] [address] documented as of this encounter Visit Diagnoses Not on filedocumented in this encounter Additional Health Concerns Assessment Noted Time A fall risk assessment has been complete d for the patient 04/26/2014 7:59 AM CDT documented as of this encounter Care Teams Workers Compensation Consultant Relationship Specialty Start Date End Date Jeison Orozco MD PCP - General 12/25/01 08/12/23 documented as of this encounter
--- OUTSIDE RECORDS SUMMARY | 2024-11-07 07:02 | XMS_ITS | Encounter Summary ---
Author Organization [facility] Address [address] [place] [id number] Care Team Providers Care Route Process Administrator Name Role Phone Jeison Orozco MD Primary Care Provider Unav ailable Reason for Visit * Reason Onset Date Comments Patient Question 07/07/2015 Other Encounter Details Date Type Department Care Team (Late st Contact Info) Description 07/07/2015 Telephone Gastroenterology - [facility] [place] [address] [facility] [address] [place], [place] [phone] Titus Vieyra MD [address] [place] [address] [address] [place], [place] [phone] Patient Question; Social History Tobacco Use Types Packs/Day Years [...] Progress Notes * Radha Gutiérrez RN - 07/07/2015 11:59 AM CDT Escribed Trilyte to pharmacy as requested per patient * Radha Gutiérrez RN - 07/07/2015 11:57 AM CDT ----- Message from Devante Garnett sent at 07/07/2015 10:38 AM CDT ----- PLEASE SENT PREP OVER TO [facility] - [address] [phone], Thanks Devante * Titus Vieyra MD - 07/07/2015 11:02 AM CDT Okay, please do 2 day prep (magnesium citrate 2 nights prior, miralax prep 1 day prior) Titus Vieyra MD [facility] Gastroenterology * Anton Serna - 07/07/2015 10:45 AM CDT Pt requesting gatorade/miralax prep for colonoscopy Last colonoscopy 7.9.15 The largest polyp was an adenomatous polyp. These are potentially precancerous polyps that were removed to help prevent progression to colon cancer The other polyps removed were a combination of serrated (potentially precancerous polyps) and hyperplastic polyp (these are benign polyps that are not thought to be precancerous). Follow-up information: --In the future I may apply APC (similar to cauterizing or burning) any residual polyp away from the largest site. This needs to be scheduled at the hospital. --This may take several colonoscopies every 3-6 months until the polyp is treated successfully. If not able to successfully treat the polyp, or if you do not want colonoscopies like this, surgery is always an option (may have to remove a segment of colon, but you could discuss this with a surgeon if you would like) if you would like. documented in this encounter Plan of Treatment Upcoming Encounters Date Type Department Care Team (Late st Contact Info) Description 11/24/2024 1:00 PM FOOD AND BEVERAGE MANAGER Procedure Surgical Procedure Visit [phone] Titus Vieyra MD [address] [place] [address] [address] [place] [address] documented as of this encounter Visit Diagnoses Not on filedocumented in this encounter Additional Health Concerns Assessment Noted Time A fall risk assessment has been complete d for the patient 04/26/2014 7:59 AM CDT documented as of this encounter Care Teams Route Process Administrator Relationship Specialty Start Date End Date Jeison Orozco MD PCP - General 12/25/01 08/12/23 documented as of this encounter
--- OUTSIDE RECORDS SUMMARY | 2024-11-07 07:02 | XMS_ITS | Encounter Summary ---
Author Organization [facility] Address [address] [place] [address] Care Team Providers Care Medicine Teacher Name Role Phone Jeison Orozco MD Primary Care Provider Unav ailable Reason for Referral * Tests (Routine) - Closed Specialty Diagnoses / Procedures Referred By Contac t Referred To Contact Cardiology Diagnoses AF (atrial fibrillation) (HCC) Procedures GRADED EXER TEST, CARDIO (DMG) CARDIAC STRESS TST,COMPLETE Xu Rosenberg MD [address] [place] [address] Referral ID Status Reason Start Date Expiration Date Visits Re quested Visits Authorized [id number] Closed 03/18/2014 03/16/2015 1 1 Reason for Visit * Reason Comments Atrial Fibrillation * OFFICE VISIT (Routine) - Closed Specialty Diagnoses / Procedures Referred By Contac t Referred To Contact Cardiology Diagnoses AF (atrial fibrillation) (HCC) Palpitations Jl Blackmon MD [address] [place] [address] Referral ID Status Reason Start Date Expiration Date Visits Re quested Visits Authorized [id number] Closed 12/23/2013 12/23/2014 1 1 Encounter Details Date Type Department Care Team (Late st Contact Info) Description 03/16/2014 2:20 PM CDT Office Visit Cardiology - [facility] [place] [address] [place] [phone] Xu Rosenberg MD [address] [place], [place] [id number] AF (atrial fibrillation) (HCC); Palpitations Social History Tobacco Use Types [...] Sign Reading Time Taken Comments Blood Pressure 138/72 03/16/2014 2:22 PM CDT Pulse 72 03/16/2014 2:22 PM CDT Temperature - - Respiratory Rate - - Oxygen Saturation - - Inhaled Oxygen Concentration - - Weight 65.8 kg (145 lb) 03/16/2014 2:22 PM CDT Height 168.9 cm (5' 6.5 ) 03/16/2014 2:22 PM CDT Body Mass Index 23.05 03/16/2014 2:22 PM CDT documented in this encounter Patient Instructions * Patient Instructions* Nimisha Jimenez - 03/16/2014 3:04 PM CDT Start flecainide 100mg (1 tablet) twice daily. Schedule an exercise stress test (GXT) to be done 7-10 days after starting flecainide. Plan will be for cryoablation if flecainide does not work. documented in this encounter Progress Notes * Xu Rosenberg MD - 03/16/2014 3:03 PM CDT I was asked by Dr. Blackmon [...] occuring almost every day, sometimes for minutes. Sister on flecanide and doing well Denies chest pain, shortness of breath, palpitations, lightheadedness, syncope, orthopnea, paroxysmal nocturnal dyspnea, or edema. ROS: all other systems were reviewed and were negative Past Medical History Diagnosis Date ??? AF (atrial fibrillation) 06/21/2013 Allergies: Penicillins Rash Medications: Smoking status: Former Smoker For 10.00 Years Smokeless tobacco: Never Used Comment: quit 21 yrs ago Alcohol Use: Yes Comment: socially Family history: no sudden cardiac . Brother and sister both with AF Physical: Wt Readings from Last 3 Encounters: 03/16/14 : 145 lb (65.772 kg) 12/23/13 : 145 lb (65.772 kg) 11/08/13 : 151 lb (68.493 kg) General: Alert and oriented in no [...] 1. sx'atic pAF CHADSVASC=1 on asa Plan: ?? AF - discussed rate rhythm contrrol ac and ablation ?? Patient would like to pursue ablation strategy for nursing home, in short term wants to try drugs to pevent prior to ablation. ?? Flecanide 100 bid, GXT after 1 week, cont asa 5% major complication rate explained (including stroke, perforation requiring surgery or ) including separate 7% diaphragm paralysis rate. 70% success rate with 30% need for repeat procedure, despite knowing this and that medical therapy is an option she agrees to proceed with ablation. AE fistula rate quoted CT PV's prior, DIONTE morning of, stronger AC x 3 months post Xu Rosenberg MD Clinical Cardiac Electrophysiology [facility] documented in this encounter Plan of Treatment Upcoming Encounters Date Type Department Care Team (Late st Contact Info) Description 11/24/2024 1:00 PM PROFESSOR OF CHEMICAL ENGINEERING Procedure Surgical Procedure Visit [phone] Titus Vieyra MD [address] [place] [address] [address] [place] [address] Scheduled Orders Name Type Priority Associated Diagnoses Orde r Schedule OFFICE CONSULTATION,LEVEL V PROCEDURES Routine AF (atrial fibrillation) (HCC) Palpitations Ordered: 03/16/2014 documented as of this encounter Procedures Procedure Name Priority Date/Time Associated Diagnosis Comments GRADED EXER TEST, CARDIO (DMG) Routine 06/10/2014 AF (atrial fibrillation) (HCC) FOLLOW-UP, CARDIO (DMG) Routine 03/29/2014 AF (atrial fibrillation) (HCC) Palpitations documented in this encounter Results * GRADED EXER TEST, CARDIO (DMG) (06/10/2014) Xu Rosenberg MD CARDIOGRAPHICS MERGECARD * FOLLOW-UP, CARDIO (DMG) (03/29/2014) Jl Blackmon MD REFERRAL DMG documented in this encounter Visit Diagnoses Diagnosis AF (atrial fibrillation) (HCC) Atrial fibrillation Palpitations documented in this encounter Care Teams Medicine Teacher Relationship Specialty Start Date End Date Jeison Orozco MD PCP - General 3/1/02 10/17/23 documented as of this encounter
--- OUTSIDE RECORDS SUMMARY | 2024-11-07 07:02 | XMS_ITS | Encounter Summary ---
Author Organization [facility] Address [address] [place] [address] Care Team Providers Care Furrier Designer Name Role Phone Jeison Orozco MD Primary Care Provider Unav ailable Reason for Visit * Reason Onset Date Comments Patient Question 07/07/2015 Encounter Details Date Type Department Care Team (Late st Contact Info) Description 07/07/2015 Telephone Gastroenterology - [facility] [address] [facility] [address] [place], [place] [phone] Titus Vieyra MD [address] [place] [address] [address] [place], [place] [phone] Patient Question Social History Tobacco Use Types [...] Progress Notes * Garnett, Evet M. - 07/07/2015 10:40 AM CDT Pt wants to know if she can try a different prep documented in this encounter Plan of Treatment Upcoming Encounters Date Type Department Care Team (Late st Contact Info) Description 11/24/2024 1:00 PM OB TECH Procedure Surgical Procedure Visit [phone] Titus Vieyra MD [address] [facility] [address] [place] [address] documented as of this encounter Visit Diagnoses Not on filedocumented in this encounter Additional Health Concerns Assessment Noted Time A fall risk assessment has been complete d for the patient 04/26/2014 7:59 AM CDT documented as of this encounter Care Teams Furrier Designer Relationship Specialty Start Date End Date Jeison Orozco MD PCP - General 12/25/01 08/12/23 documented as of this encounter
--- OUTSIDE RECORDS SUMMARY | 2024-11-07 07:02 | XMS_ITS | Encounter Summary ---
[facility] Organization [facility] Address [address] [place] [address] Care Team Providers Care Range Operator Name Role Phone Jeison Orozco MD Primary Care Provider Unav ailable Reason for Referral * E/M Services (Routine) - Closed Specialty Diagnoses / Procedures Referred By Delmi zee Referred To Contact Endocrinology Diagnoses Hormone imbalance Jeison Orozco MD [address] [facility] [address] [place] [address] Referral ID Status Reason Start Date Expiration Date Visits Re quested Visits Authorized [id number] Closed 04/21/2015 04/20/2016 6 6 Scheduling Instructions This department is supported by [facility] - Specialty. If your appointment has not been made for you during today's visit, please refer to the scheduling instructions below. HFS and [facility] patients should call the department directly to schedule their appointment. Your physician has referred you to a Academic Vice President affiliated with [facility]. To schedule an appointment, please call [phone]. [facility] [place]ULT [place] SITES - patients 18 years and older: [place]: [address] [facility], [address], [place] [address] [place]: [address] [facility] [address] [place], [address] [place] [address] [facility], [address],[place] [address] [place]: [address] [facility], [address], [place] [address] [place]: [address] [facility], [address], [place] [address] For more information about [facility] Endocrinology and to access patient instructions and/or forms, please visit our website at: [email or web address] In order to insure proper patient identification, [...] office or the Utilization Management Department at [phone], seventy-two (72) hours after the order is placed. Referrals can not be entered retrospectively. IF YOU HAVE PPO INSURANCE COVERAGE If your medical insurance is a PPO, it is the patient's responsibility to confirm that any provider, vendor and/or facility outside of [facility] is in your network. Although your PPO insurance may not require referrals, there are certain procedures (MRI, Nuclear Stress Test, Surgery, etc.) that may require an authorization from your insurance company. As long as the service is being performed at [facility], the [facility] UM staff will obtain the necessary authorization on your behalf. IF YOU HAVE HMO INSURANCE COVERAGE Your insurance requires a referral from your Primary Care Physician. [facility] will obtain authorization from your insurance company for services ordered by your [facility] PCP or G specialist. A referral is not a guarantee of benefit, and we highly recommend that you call your insurance company to verify your coverage * E/M Services (Routine) - Closed Specialty Diagnoses / Procedures Referred By Contac t Referred To Contact Physiatry Diagnoses Abnormal posture Jeison Orozco MD [address] [facility] [address] [place] [address] Referral ID Status Reason Start Date Expiration Date Visits Re quested Visits Authorized [id number] Closed 04/21/2015 04/20/2016 6 6 Scheduling Instructions Physical Medicine sees patients 12 years and older. If your appointment has not been made for you during today's visit, please call [phone] to schedule your appointment at one of the locations below. [place]: [address] [place]: [address] [place]: [address] [place]: [address], [address] [place]: [address] [facility], [address] [place] ([address]): [address] [place]: [address] [facility], [address] For more information about [facility] Physical Medicine and to access patient instructions and/or forms, please visit our website at: [email or web address] Your insurance may require a referral for these services. IT IS THE PATIENT'S RESPONSIBILITY TO OBTAIN A REFERRAL PRIOR TO SERVICES BEING RENDERED. Charges for service obtained without a referral are the patient's responsibility. To ensure an approved referral/authorization is in place prior to service, you may call your physicians office or the Utilization Management Department at [phone], seventy-two (72) hours after the order is placed. Referrals can not be entered retrospectively. IF YOU HAVE PPO INSURANCE COVERAGE If your medical insurance is a PPO, it is the patient's responsibility to confirm that any provider, vendor and/or facility outside of [facility] is in your network. Although your PPO insurance may not require referrals, there are certain procedures (MRI, Nuclear Stress Test, Surgery, etc.) that may require an authorization from your insurance company. As long as the service is being performed at [facility], the [facility] staff will obtain the necessary authorization on your behalf. IF YOU HAVE HMO INSURANCE COVERAGE Your insurance requires a referral from your Primary Care Physician. [facility] will obtain authorization from your insurance company for services ordered by your [facility] PCP or [facility] specialist. A referral is not a guarantee of benefit, and we highly recommend that you call your insurance company to verify your coverage Reason for Visit * Reason Comments Physical Encounter Details Date Type Department Care Team (Late st Contact Info) Description 04/21/2015 9:30 AM CDT Office Visit Internal Medicine - [place] [address] [facility] [address] [place] [address] Jeison Orozco MD Abnormal posture (Primary Dx); Hormone imbalance; Other malaise and fatigue; Snoring; Insomnia, unspecified; Unspecified vitamin D deficiency; B12 deficiency; Other and unspecified hyperlipidemia; Routine general medical examination at a health care facility Social History Tobacco Use Types Packs/Day Years [...] Sign Reading Time Taken Comments Blood Pressure 124/72 04/21/2015 9:33 AM CDT Pulse 65 04/21/2015 9:33 AM CDT Temperature 36.5 ??C (97.7 ??F) 04/21/2015 9 :33 AM CDT Respiratory Rate - - Oxygen Saturation 99% 04/21/2015 9:3 3 AM CDT Inhaled Oxygen Concentration - - Weight 68.5 kg (151 lb) 04/21/2015 9:[address] AM CDT Waist Cir= 33 Height 168.3 cm (5' 6.25 ) 04/21/2015 9 :33 AM CDT Body Mass Index 24.19 04/21/2015 9:33 AM CDT documented in this encounter Functional Status Functional Status Response Date of Assess ment Hearing Problems? No 04/26/2014 Vision Problems? No 04/26/2014 Difficulty walking? No 04/26/2014 Difficulty dressing or bathing? No 04/26/2014 Problems with daily activities? No 04/26/2014 Cognitive Status Response Date of Assessm ent Memory Problems? No 04/26/2014 documented as of this encounter Progress Notes * Ashkan Orozco - 04/21/2015 10:41 AM CDT ANNABELLE VISIT NOTE DATE OF VISIT: 04/21/2015 [facility] INTERNAL MEDICINE HISTORY OF PRESENT ILLNESS: The patient returns for physical with several medical issues. She has been seeing a chiropractor and had multiple hormone and saliva tests drawn. She is worried about her adrenal gland, that she may have adrenal hormone abnormalities. She would like Endocrine consult, which I have requested. She also complains of bad posture with occasional backache and right posteriorhip headache. No recent trauma. Sleep is a problem and she does apparently snore, so she would likesleep evaluation, which I have ordered. She also is interested in complete blood workup, which I have ordered. 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 We will check complete blood work today. PHYSICAL EXAMINATION: Today her HEENT, heart, lungs, abdomen, neuromuscular exam, extremities, gait, cranial nerves, judgment, intellect, and orientation are satisfactory. She does not have symptoms or signs suggestive of adrenal abnormalities, but await endocrine opinion. DIAGNOSTIC IMPRESSION 1. Possible abnormal posture. 2. Mild dermatitis mid back. I have offered followup Dermatology consult, but she feels it is not needed at this time. 3. Snoring. We will plan sleep consult. 4. Cardiac rhythm disturbance. Followup with Dr. Rosenberg, her EP language path. 5. History of colon polyps. Followup colonoscopy. 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 Procedure Surgical Procedure Visit [phone] Titus Vieyra MD [facility] [address] [place] [address] Scheduled Referrals Name Type Priority Associated Diagnoses Orde r Schedule EVALUATE & TREAT, PHYSIATRY (DMG) Referral Routine Abnormal posture Ordered: 04/21/2015 EVALUATE & TREAT, ENDO (DMG) Referral Routine Hormone imbalance Ordered: 04/21/2015 documented as of this encounter Procedures Procedure Name Priority Date/Time Associated Diagnosis Comments PERIODIC PREVENTIVE MED EST PATIENT 40-64YRS Routine 04/21/2015 9:58 AM CDT Abnormal posture Hormone imbalance Other malaise and fatigue Snoring Insomnia, unspecified Unspecified vitamin D deficiency B12 deficiency Other and unspecified hyperlipidemia Routine general medical examination at a health care facility documented in this encounter Results * URINALYSIS, W MICROSCOPIC (04/21/2015 11:01 AM CDT) Specific [place] 1.015 1.005 - 1.030 [facility] 1 PH [...] PM CDT Performed at: ??01 - [facility] [address] ??[id number] Sewing Demonstrator: Jair Hou PhD, Phone: ??[phone] Jeison Orozco MD URINE ORDERABLES [facility] Unknown Unknown [facility] [address] [place] [id number] [phone] * VITAMIN B12 (04/21/2015 10:07 AM CDT) Vitamin B12 595 211 - 946 pg/mL [facility] 1 Blood specimen (specimen) 04/21/2015 10:07 AM CDT 04/21/2015 5:37 PM CDT Comment:BLOOD Narrative [facility] - 04/23/2015 9:07 AM CDT Performed at: ??01 - [facility] [address] ??[id number] Sewing Demonstrator: Jair Hou PhD, Phone: ??[phone] Jeison Orozco MD LAB BLOOD ORDERABLE S Performing Organization Address City/[facility]/ZIP Co de Phone Number [facility] DEFAULT [facility] Unknown Unknown [facility] [address] [place] [address], [facility] [phone] * VITAMIN D, 25-HYDROXY (04/21/2015 10:07 AM CDT) [facility] VITAMIN D, 25-HYDROXY 41.1 30.0 - 100.0 ng/mL [facility] 1 Comment: Vitamin D deficiency has been defined by the [place] of Medicine and an Endocrine Society practice guideline as a level of serum 25-OH vitamin D less than 20 ng/mL (1,2). The Endocrine Society went on to further define vitamin D insufficiency as a level between 21 and 29 ng/mL (2). 1. IOM ([place] of Medicine). 2010. Dietary reference ?? intakes [...] AM CDT Performed at: ??01 - [facility] [address] ??[id number] Sewing Demonstrator: Jair Hou PhD, Phone: ??[phone] Jeison Orozco MD LAB BLOOD ORDERABLE S Performing Organization Address City/[facility]/ZIP Co de Phone Number [facility] DEFAULT [facility] Unknown Unknown [facility] [address] [place] [address], [facility] [phone] * ASSAY, THYROID STIM HORMONE (04/21/2015 10:07 AM CDT) TSH 1.293 0.358 - 3.74 mIU/L 04/21/2015 4:11 PM CDT [facility] Blood Venipuncture / Unknown 04/21/2015 10:07 AM CDT 04/21/2015 10:08 AM CDT Jeison Orozco MD LAB BLOOD ORDERABLE S Performing Organization Address City/[facility]/ZIP Co de Phone Number [facility] [address] * SED RATE, WESTERGREN (AUTOMATED) (04/21/2015 10:07 AM CDT) Erythrocyte Sedimentation Rate 13 0 - 25 mm/hr 04/21/2015 4:04 PM CDT [facility] Blood Venipuncture / Unknown 04/21/2015 10:07 AM CDT 04/21/2015 10:08 AM CDT Jeison Orozco MD LAB BLOOD ORDERABLE S Performing Organization Address [facility] Co de Phone Number [facility] [address] * (ABNORMAL) LIPID PANEL W LDL/HDL RATIO (04/21/2015 10:07 AM CDT) Triglycerides 34 30 - 150 mg/dL 04/21/2015 4:19 PM CDT [facility] Direct HDL 71(H) 40 - 60 mg/dL 04/21/2015 4:19 PM CDT [facility] Comment:Guidelines for high density lipoprotein (HDL) are adapted from the National Cholesterol Education Program (NCEP).Values >60 mg/dL are considered a negative risk factor for coronary heart disease (CHD) and are considered protective. Risk Factor 2.5 <5.0 04/21/2015 4:19 PM CDT [facility] Cholesterol 179 0 - 200 mg/dL 04/21/2015 4:19 PM CDT [facility] Calculated LDL 101.2(H) 0 - 100 mg/dL 04/21/2015 4:19 PM CDT [facility] Blood Venipuncture / Unknown 04/21/2015 10:07 AM CDT 04/21/2015 10:08 AM CDT Jeison Orozco MD LAB BLOOD ORDERABLE S Performing Organization Address [facility] Co de Phone Number [facility] [address] * HEMOGLOBIN A1C (04/21/2015 10:07 AM CDT) HbA1c 5.2 4.0 - 5.6 % 04/21/2015 4:22 PM CDT [facility] Estimated Average Glucose 103 mg/dL 04/21/2015 4:22 PM CDT [facility] Comment:eAG is the estimated average glucose calculated from Hgb A1c according to the formula recommended by the [place] Diabetes [employer].eAG levels reflect the termite inspector average glucose and may not correlate with random or fasting glucose levels since these represent specific points in time. Whole blood specimen (specimen) 04/21/2015 10:07 AM CDT 04/21/2015 10:08 AM CDT Jeison Orozco MD LAB BLOOD ORDERABLE S Performing Organization Address City/[facility] Co de Phone Number [facility] [address] * COMP METABOLIC PANEL (14) (04/21/2015 10:07 AM CDT) Glucose 92 65 - 99 mg/dL 04/21/2015 4:19 PM CDT [facility] Blood Urea Nitrogen 12 7 - 18 mg/dL 04/21/2015 4:19 PM CDT [facility] Creatinine 0.68 0.55 - 1.30 mg/dL 04/21/2015 4:19 PM CDT [facility] Comment: Traceable to IDMS. Please note reference interval change Sodium 145 135 - 145 mmol/L 04/21/2015 4:19 PM CDT [facility] Potassium 5.1 3.5 - 5.1 mmol/L 04/21/2015 4:19 PM CDT [facility] Chloride 104 98 - 107 mmol/L 04/21/2015 4:19 PM CDT [facility] Carbon Dioxide 28 21 - 32 mmol/L 04/21/2015 4:19 PM CDT [facility] Calcium 9.3 8.5 - 10.1 mg/dL 04/21/2015 4:19 PM CDT [facility] Total Protein 7.5 6.4 - 8.2 g/dL 04/21/2015 4:19 PM CDT [facility] Albumin 4.4 3.4 - 5.0 g/dL 04/21/2015 4:19 PM CDT [facility] Bilirubin, Total 0.51 0.20 - 1.00 mg/dL 04/21/2015 4:19 PM CDT [facility] Alkaline Phosphatase 53 46 - 116 U/L 04/21/2015 4:19 PM CDT [facility] AST 20 15 - 37 U/L 04/21/2015 4:19 PM CDT [facility] ALT 28 12 - 60 U/L 04/21/2015 4:19 PM CDT [facility] GFR CKD-EPI 98.10 >=60.00 mL/min/1.7 3 m?? 04/21/2015 4:19 PM CDT [facility] Comment: Estimated GFR units: mL/min/1.73 square meters eGFR calculated by the CKD-EPI equation. Blood Venipuncture / Unknown 04/21/2015 10:07 AM CDT 04/21/2015 10:08 AM CDT Jeison Orozco MD LAB BLOOD ORDERABLE S [facility] [address] [address], [facility] documented in this encounter Visit Diagnoses Diagnosis Abnormal posture- Primary Hormone imbalance Unspecified endocrine disorder Other malaise and fatigue Snoring Other dyspnea and respiratory abnormality Insomnia, unspecified Unspecified vitamin D deficiency B12 deficiency Other B-complex deficiencies Other and unspecified hyperlipidemia Routine general medical examination at a health care facility Abnormal posture Hormone imbalance Unspecified endocrine disorder [...] documented as of this encounter Care Teams Range Operator Relationship Specialty Start Date End Date Jeison Orozco MD PCP - General 12/25/01 08/12/23 documented as of this encounter
--- OUTSIDE RECORDS SUMMARY | 2024-11-07 07:02 | XMS_ITS | Encounter Summary ---
Author Organization [facility] Address [address] [place] [address] Care Team Providers Care Auto Garage Attendant Name Role Phone Jeison Orozco MD Primary Care Provider Unav ailable Reason for Referral * Specialty Diagnoses / Procedures Referred By Contvel t Referred To Contact Harrison Salinas MD [address] [place] [address] Referral ID Status Reason Start Date Expiration Date Visits Re quested Visits Authorized [place] BUTLER Reason for Visit * Reason Onset Date Comments Colon Cancer Screening 12/08/2014 Encounter Details Date Type Department Care Team (Late st Contact Info) Description 12/08/2014 Telephone Gastroenterology - [facility] [place] [address] [facility] [facility] [address] [place] [address] Titus Vieyra MD [address] [facility] [address] [place], [place] [id number] Colon Cancer Screening Social History Tobacco Use Types Packs/Day Years [...] st Contact Info) Description 11/24/2024 1:00 PM SECOND BUTLER Procedure Surgical Procedure Visit [phone] Titus Vieyra MD [address] [facility] [address] [place] [address] Scheduled Referrals Name Type Priority Associated Diagnoses Orde r Schedule COLONOSCOPY DIAGNOSTIC - REFERRAL Referral Routine Personal history of colonic polyps Ordered: 12/08/2014 documented as of this encounter Visit Diagnoses Diagnosis Personal history of colonic polyps- Primary documented in this encounter Additional Health Concerns Assessment Noted Time A fall risk assessment has been complete d for the patient 04/26/2014 7:59 AM CDT documented as of this encounter Care Teams Auto Garage Attendant Relationship Specialty Start Date End Date Jeison Orozco MD PCP - General 12/25/01 08/12/23 documented as of this encounter
--- OUTSIDE RECORDS SUMMARY | 2024-11-07 07:02 | XMS_ITS | Encounter Summary ---
Author Organization [facility] Address [address] [place] [address] Care Team Providers Care Homebirth Midwife Name Role Phone Jeison Orozco MD Primary Care Provider Unav ailable Reason for Visit * Reason Comments Back Pain * Rehab Services (Routine) - Closed Specialty Diagnoses / Procedures Referred By Delmi zee Referred To Contact Rehabilitation Diagnoses Spondylolisthesis at L5-S1 level Scoliosis Cervical spondylosis Ashkan Amin, PA [address] [facility] [address] [place] [address] Referral ID Status Reason Start Date Expiration Date Visits Re quested Visits Authorized [id number] Closed 04/27/2015 04/26/2016 12 12 Encounter Details Date Type Department Care Team (Latest Contact Info) Description 06/20/2015 9:30 AM CDT Office Visit Physical Therapy - [place] Ankit Neumann [address] [facility] [address] [place], [place] [id number] Bonita Chin, GONZALO [address] [facility] [place] [address] Congenital spondylolisthesis (Primary Dx); Cervical spondylosis Social [...] Progress Notes * Bonita Chin, PT - 06/20/2015 9:40 AM CDT MD: Ashkan Amin PT Dx: middle back pain Dx Code: 756.12, 721.0 Visit 6 SUBJECTIVE: Pain: 2/10 today. Pt. Reports: Pt reports that she still has soreness in her back. Pt reports that she was doing yardwork and had to ice after due to pain. OBJECTIVE: Manual Therapy: Prone PAs to thoracic spine 8 minutes Assessment: Mild discomfort in mid thoracic region with PA mobes. Hypomobility in thoracic spine with mobes. Therapeutic Activity: minutes Assessment: Neuromuscular Re education: verbal, visual, and/or tactile cues given throughout treatment minutes Assessment: Therapeutic Exercise: UBE 3'/3' Supine horizontal abd OTB x12 Supine sash OTB x12 Supine OH pull OTB x12 Supine ER OTB x12 Cervical retractions w/ RAFAL x3' Supine elbow press x10 AMPOULE EXAMINER Quadruped thoracic rotation w/ breathing x10 R/L 3 way lat stretch w/ SB at table sitting x 10 ea Shoulder flexion stretch at bar: x10, 5 hold REIL: x10 Prayer stretch: 4x20 32 minutes Assessment: Progressed spinal stretching exercises. Provided pt with OTB for HEP. Discomfort with seated thoracic rotation stretch. Added REIL to HEP. 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 Procedure Surgical Procedure Visit [phone] Titus Vieyra MD [address] [facility] [address] [place] [address] Scheduled Orders Name Type Priority Associated Diagnoses Orde r Schedule THERAPEUTIC EXERCISES PROCEDURES Routine Congenital spondylolisthesis Cervical spondylosis Ordered: 06/20/2015 MANUAL THERAPY PROCEDURES Routine Congenital spondylolisthesis Cervical spondylosis Ordered: 06/20/2015 documented as of this encounter Visit Diagnoses Diagnosis Congenital spondylolisthesis- Primary Cervical spondylosis Cervical spondylosis without myelopathy documented in this encounter Additional Health Concerns Assessment Noted Time A fall risk assessment has been complete d for the patient 04/26/2014 7:59 AM CDT documented as of this encounter Care Teams Homebirth Midwife Relationship Specialty Start Date End Date Jeison Orozco MD PCP - General 12/25/01 08/12/23 documented as of this encounter
--- OUTSIDE RECORDS SUMMARY | 2024-11-07 07:02 | XMS_ITS | Encounter Summary ---
Author Organization [facility] Address [address] [place] [address] Care Team Providers Care Sawyer Helper Name Role Phone Jeison Orozco MD Primary Care Provider Unav ailable Reason for Referral * E/M Services (Routine) - Closed Specialty Diagnoses / Procedures Referred By Delmi zee Referred To Contact Pulmonary Diseases Diagnoses Unable to sleep Jeison Orozco MD [address] [facility] [address] [place] [address] Referral ID Status Reason Start Date Expiration Date Visits Re quested Visits Authorized [id number] Closed 04/23/2015 04/22/2016 6 6 Scheduling Instructions This department is supported by [facility] and sees patients 18 years and older. If your appointment has not been made for you during today's visit, please refer to the scheduling instructions below. [facility] patients should call the department directly. Your physician has referred you to a Pulmonary Medicine doctor affiliated with [facility] or for a Pulmonary Function Test. Please call [phone] to schedule your appointment. [facility] in [facility]): [facility] [facility], [address], [address], [place] [address] [facility] in [place]: [address] [facility], [address], [place] [address] [facility] in [place]: [address] [facility], [address] [address] [facility] in [facility]): [address] [facility], [address] [place] [address] [facility] in [place] ([facility]): [address] [place] [address], [address], [place] [address] For more information about [facility] physicians and locations, visit: [email or web address] In order to insure proper patient identification, [...] office or the Utilization Management Department at [phone], seventy-two (72) hours after the order is placed. Referrals can not be entered retrospectively. IF YOU HAVE PPO INSURANCE COVERAGE If your medical insurance is a PPO, it is the patient's responsibility to confirm that any provider, vendor and/or facility outside of [facility] is in your network. Although your PPO insurance may not require referrals, there are certain procedures (MRI, Nuclear Stress Test, Surgery, etc.) that may require an authorization from your insurance company. As long as the service is being performed at [facility], the [facility] UM staff will obtain the necessary authorization on your behalf. IF YOU HAVE HMO INSURANCE COVERAGE Your insurance requires a referral from your Primary Care Physician. [facility] will obtain authorization from your insurance company for services ordered by your [facility] PCP or [facility] specialist. A referral is not a guarantee of benefit, and we highly recommend that you call your insurance company to verify your coverage Reason for Visit * Reason Comments Other Encounter Details Date Type Department Care Team (Late st Contact Info) Description 04/23/2015 Telephone Internal Medicine - [place] [address] [facility] [address] [place] [address] Jeison Orozco MD Social History Tobacco Use [...] encounter Progress Notes * Ashkan Orozco - 04/23/2015 11:59 AM CDT Please call her to set up sleep consult and release all to my chart documented in this encounter Plan of Treatment Upcoming Encounters Date Type Department Care Team (Late st Contact Info) Description 11/24/2024 1:00 PM STORE LEAD Procedure Surgical Procedure Visit [phone] Titus Vieyra MD [address] [place] [address] [address] [place] [address] Scheduled Referrals Name Type Priority Associated Diagnoses Orde r Schedule EVALUATE & TREAT, PULM ([facility]) Referral Routine Unable to sleep Ordered: 04/23/2015 documented as of this encounter Visit Diagnoses Diagnosis Unable to sleep- Primary Insomnia, unspecified documented in this encounter Additional Health Concerns Assessment Noted Time A fall risk assessment has been complete d for the patient 04/26/2014 7:59 AM CDT documented as of this encounter Care Teams Sawyer Helper Relationship Specialty Start Date End Date Jeison Orozco MD PCP - General 12/25/01 08/12/23 documented as of this encounter
--- OUTSIDE RECORDS SUMMARY | 2024-11-07 07:02 | XMS_ITS | Encounter Summary ---
Author Organization [facility] Address [address] [place] [address] Care Team Providers Care Foreign Exchange Dealer Name Role Phone Jeison Orozco MD Primary Care Provider Unav ailable Reason for Visit * Reason Onset Date Comments Atrial Fibrillation Atrial Fibrillation 08/03/2014 * Tests (Routine) - Closed Specialty Diagnoses / Procedures Referred By Delmi t Referred To Contact Cardiology Diagnoses Atrial fibrillation (HCC) Xu Rosenberg MD [address] [facility] [address] [place] [address] Referral ID Status Reason Start Date Expiration Date Visits Re quested Visits Authorized [id number] Closed 05/27/2014 05/27/2015 3 3 Encounter Details Date Type Department Care Team (Late st Contact Info) Description 08/03/2014 1:30 PM CDT Office Visit Cardiology - [facility] [address] [place] [address] [address] [place], [place] [address] Atrial fibrillation (HCC) Social History Tobacco Use Types Packs/Day Years [...] as of this encounter Progress Notes * Bessie Pizano RN - 09/13/2014 9:18 AM CSTQuick Note: Pt notified of TTM results via voice mail. WASHER * Xu Rosenberg MD - 09/09/2014 9:26 AM CSTQuick Note: Lack of AF noted WASHER * Teresa Jordan RN - 09/08/2014 12:29 PM CSTQuick Note: Appointment 09-21-[address] Rosenberg. WASHER documented in this encounter Procedure Notes * Jl Blackmon MD - 09/05/2014 4:30 PM CSTAssociated Order(s): ECG RECORD/REVIEW EVENT MONITOR REPORT NAME: TIMOTEO COSTELLO DATE: 08/03/2014 to 09/02/2014 : 1960 SEX: F SITE: [place] [place] ORDERED BY: Xu Rosenberg MD INDICATION: Atrial fibrillation INTERPRETATION: The patient was monitored for 30 days between August 03, 2014 and September 02, 2014. The first patient event corresponds to the baseline recording, demonstrating sinus rhythm with no ectopy. There is 1 event labeled as tachycardia that corresponds to sinus rhythm, with a heart rate of 80 to 88 beats per minute. There are no atrial fibrillation events. There are 9 patient events. The first of these was the baseline recording; 4 of the patient events correspond to sinus rhythm with no ectopy. The remaining patient events correspond to sinus rhythm with isolated supraventricular and ventricular ectopy. On one occasion, there was a 6-beat supraventricular run followed by a 5-beat supraventricular run.This occurred on August 06, at 5:11 p.m. No symptoms are reported throughout the study. IMPRESSION 1. Event monitor demonstrating sinus rhythm, with relatively infrequent isolated ventricular and supraventricular ectopy. 2. No atrial fibrillation is detected. 3. One tracing demonstrates 2 supraventricular runs. 4. No symptoms are reported. Jl Blackmon MD, [facility] MR/md - PT NAME: TIMOTEO COSTELLO - cc: Xu Rosenberg MD WASHER documented in this encounter Plan of Treatment Upcoming Encounters Date Type Department Care Team (Late st Contact Info) Description 11/24/2024 1:00 PM SALT WASHER Procedure Surgical Procedure Visit [phone] Titus Vieyra MD [address] [facility] [address] [place] [id number] documented as of this encounter Procedures Procedure Name Priority Date/Time Associated Diagnosis Comments XTRNL PT ACTIV ECG TRANSMIS W/R&I </30 DAYS Routine 11/02/2014 9:17 AM SALT WASHER Atrial fibrillation (HCC) EVENT FRI - 30D CARDIO ([place]) Routine 10/13/2014 Atrial fibrillation (HCC) documented in this encounter Results * ECG RECORD/REVIEW (11/02/2014 9:17 AM SALT WASHER) Narrative Transcriptions Jl Blackmon MD - 09/05/2014 4:30 PM CST EVENT MONITOR REPORT NAME: TIMOTEO COSTELLO DATE: 08/03/2014 to 09/02/2014 : 1960 SEX: F SITE: [facility] [place] ORDERED BY: Xu Rosenberg MD INDICATION: Atrial fibrillation INTERPRETATION: The patient was monitored for 30 days between July and September 02, 2014. The first patient event corresponds to the baseline recording,demonstrating sinus rhythm with no ectopy. There is 1 event labeled astachycardia that corresponds to sinus rhythm, with a heart rate of 80 to88 beats per minute. There are no atrial fibrillation events. There are 9 patient events. The first of these was the baseline recording;4 of the patient events correspond to sinus rhythm with no ectopy. Theremaining patient events correspond to sinus rhythm with isolatedsupraventricular and ventricular ectopy. On one occasion, there was a 6-beat supraventricular run followed by a5-beat supraventricular run. This occurred on August 06, at 5:11 p.m. Nosymptoms are reported throughout the study. IMPRESSION 1. Event monitor demonstrating sinus rhythm, with relatively infrequentisolated ventricular and supraventricular ectopy. 2. No atrial fibrillation is detected. 3. One tracing demonstrates 2 supraventricular runs. 4. No symptoms are reported. Jl Blackmon MD, [facility] MR/md - PT NAME: TIMOTEO COSTELLO cc: Xu Rosenberg MD Clinical Specialist Vascular [facility] * EVENT Fri 30D, CARDIO ([facility]) (10/13/2014) Xu Rosenberg MD REFERRAL [facility] documented in this encounter Visit Diagnoses Diagnosis Atrial fibrillation (HCC) Atrial fibrillation documented in this encounter Additional Health Concerns Assessment Noted Time A fall risk assessment has been complete d for the patient 04/26/2014 7:59 AM CDT documented as of this encounter Care Teams Foreign Exchange Dealer Relationship Specialty Start Date End Date Jeison Orozco MD PCP - General 12/25/01 08/12/23 documented as of this encounter
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
--- OUTSIDE RECORDS SUMMARY | 2024-11-07 07:02 | XMS_ITS | Encounter Summary ---
Author Organization [facility] Address [address] [place] [address] Care Team Providers Care Printer Floor Covering Assistant Name Role Phone Jeison Orozco MD Primary Care Provider Unav ailable Reason for Referral * CT (Urgent) - Closed Specialty Diagnoses / Procedures Referred By Delmi zee Referred To Contact Radiology Diagnoses AF (atrial fibrillation) (HCC) Procedures CT ANGIOGRAPHY, CHEST ([id number]) CTA CHEST W/WO INFUSION No change MW 04/07/14 Xu Rosenberg MD [address] [place] [address] Referral ID Status Reason Start Date Expiration Date Visits Re quested Visits Authorized [id number] Closed 04/08/2014 05/07/2014 1 1 Reason for Visit * Reason Onset Date Comments Appt Request 03/16/2014 Encounter Details Date Type Department Care Team (Late st Contact Info) Description 03/16/2014 Telephone Cardiology - [facility], [place] [address] [facility] [address] [place] [address] Xu Rosenberg MD [address] [place] [address] Appt Request Social History Tobacco Use Types [...] as of this encounter Progress Notes * Nimisha Jimenez - 03/17/2014 9:35 AM CDT Spoke with patient. Cryoablation scheduled for Friday04/25/14 at [facility]. Will mail pre-procedure instruction letter to patient's home. Chest CTA order and lab orders placed in EMR. Procedurecodes given to patient so she can contact her insurance to determine her approximate out of pocket cost for the procedure. * Bessie Pizano - 03/16/2014 5:34 PM CDT ML for pt to call back to schedule procedure. * Bessie Pizano - 03/16/2014 5:30 PM CDT Pt calling to schedule ablation. documented in this encounter Plan of Treatment Upcoming Encounters Date Type Department Care Team (Late st Contact Info) Description 11/24/2024 1:00 PM COMMUNICATIONS COORDINATOR Procedure Surgical Procedure Visit [phone] Titus Vieyra MD [address] [place] [address] [address] [place] [address] documented as of this encounter Results * BASIC METABOLIC PANEL [...] - 04/22/2014 4:23 PM CDT Performed at: ?? - [address] ??[id number] Customer Service And Sales Consultant: Jair Hou PhD, Phone: ??[phone] Xu Rosenberg MD LAB BLOOD ORDERABLE S [...] 4:23 PM CDT Performed at: ??01 - [facility] ??[id number] Customer Service And Sales Consultant: Jair Hou PhD, Phone: ??[phone] Xu Rosenberg MD LAB BLOOD ORDERABLE S Performing Organization Address City/State/[facility] Co de Phone Number [facility] DEFAULT [facility] Unknown Unknown [facility] 1 * CT ANGIOGRAPHY, CHEST ([id number]) (04/11/2014 1:59 PM CDT) Anatomical Region Laterality Modality Chest, Lung Computed Tomogra phy 04/11/2014 2:27 PM CDT Impressions 04/11/2014 2:33 PM CDT IMPRESSION: 1.Pulmonary vein mapping, as described above. 2. Stable 4 mm nodule in the lingula. Narrative 04/11/2014 2:33 PM CDT CTA CHEST WITH AND WITHOUT CONTRAST CLINICAL INDICATION: ??Preablation. COMPARISON: Chest CT 08/26/2013.. TECHNIQUE: ?? Pre infusion images were obtained for timing purposes. Following the administration of 100 mL of Isovue-370 intravenous contrast, arterial phase images were obtained through the chest at a 2.5 mm slice thickness. In addition, 0.625 mm thick axial reconstructions were obtained and used to create multiplanar reformatting. Automated exposure control and ALARA manual techniques for patient specific dose reduction were followed while maintaining the necessary diagnostic image quality. FINDINGS: ? The overall quality of the examination is ??average. Pulmonary Vein Anatomy: There are 4 pulmonary veins entering the left atrium; 2 right pulmonary veins and 2 left pulmonary veins. There is no evidence for pulmonary vein stenosis. Bidirectional measurements of the pulmonary veins are as follows: 1.) right superior: 14 mm x 14 mm 2.) right inferior: 15 mm x 15 mm 3.) left superior: 17 mm x 15 mm 4.)left inferior: 12 mm X 16 mm The left atrium is normal in size and is normally opacified. No abnormally enlarged lymph nodes are found in the mediastinum or glo bilaterally. In the lungs, the density previously described in the left upper lobe is incompletely imaged on this study, seen only on image 1. There is an approximately 4 mm nodule in the lingula on image 112, which is unchanged. The other nodule seen previously is not included in the bgndb-wu-sins of this exam. Limited images through the upper abdomen are unremarkable. Procedure Note Sandra Cast MD - 04/11/2014 CTA CHEST WITH AND WITHOUT CONTRAST CLINICAL INDICATION: Preablation. COMPARISON: Chest CT 08/26/2013.. TECHNIQUE: Pre infusion images were obtained for timing purposes.Following the administration of 100 mL of Isovue-370 intravenous contrast, arterial phase images wereobtained through the chest at a 2.5 mm slice thickness. In addition, 0.625 mm thick axialreconstructions were obtained and used to create multiplanar reformatting. Automated exposure control and ALARA manual techniques for patientspecific dose reduction were followed while maintaining the necessary diagnostic image quality. FINDINGS: The overall quality of the examination is average. Pulmonary Vein Anatomy: There are 4 pulmonary veins entering the leftatrium; 2 right pulmonary veins and 2 left pulmonary veins. There is no evidence for pulmonary vein stenosis. Bidirectional measurements of the pulmonary veins are as follows: 1.) right superior: 14 mm x 14 mm 2.) right inferior: 15 mm x 15 mm 3.) left superior: 17 mm x 15 mm 4.)left inferior: 12 mm X 16 mm The left atrium is normal in size and is normally opacified. No abnormally enlarged lymph nodes are found in the mediastinum or hilabilaterally. In the lungs, the density previously described in the left upper lobe isincompletely imaged on this study, seen only on image 1. There is an approximately 4 mm nodule in thelingula on image 112, which is unchanged. The other nodule seen previously is not included inthe pzqis-rf-tvji of this exam. Limited images through the upper abdomen are unremarkable. ===== IMPRESSION: 1.Pulmonary vein mapping, as described above. 2. Stable 4 mm nodule in the lingula. Xu Rosenberg MD RIS CT documented in this encounter Visit Diagnoses Diagnosis AF (atrial fibrillation) (HCC)- Primary Atrial fibrillation Pre-procedure lab exam Pre-procedural laboratory examination AF (atrial fibrillation) (HCC) Atrial fibrillation Pre-procedure lab exam Pre-procedural laboratory examination documented in this encounter Care Teams Printer Floor Covering Assistant Relationship Specialty Start Date End Date Jeison Orozco MD PCP - General 12/25/01 08/12/23 documented as of this encounter
--- OUTSIDE RECORDS SUMMARY | 2024-11-07 07:02 | XMS_ITS | Encounter Summary ---
Author Organization [facility] Address [address] [place] [address] Care Team Providers Care Netezza Developer Name Role Phone Jeison Orozco MD Primary Care Provider Unav ailable Reason for Visit * Reason Onset Date Comments Hospital F/U 09/14/2015 cancel colonosco py Encounter Details Date Type Department Care Team (Late st Contact Info) Description 09/14/2015 Telephone Gastroenterology - [facility] [address] [facility] [address] [place], [place] [address] Titus Vieyra MD [address] [place] [address] [address] [place], [place] [phone] Hospital F/U (cancel colonoscopy) Social History Tobacco Use Types Packs/Day Years [...] Progress Notes * Titus Vieyra MD - 09/14/2015 5:50 AM CST Called pt. She states prep did not clear. Only able to tolerate 75% golyte, states brown/murky stool Options disucssed, she would liek to reschedule instead of taking chance of incomplete/inadequate exam --reschedule her w/ 2 day prep. Mult options disucssed. She tolerated suprep w/ difficulty last time but was effective. Offered this, she is worried will have more vomiting, asking for miralax prep. Discussed risk of incomplete exam, she demonstrated understanding --reschedule cscope w/ APC, 2 day prep. Plan magnesium citrate 2 nights prior, miralax prep 1 day prior, have 2nd bottle available of mag citrate for possible use night prior if mirlax prep also not working Titus Vieyra MD [facility] Gastroenterology RNAL MEDICINE VETERINARY TECHNICIAN documented in this encounter Plan of Treatment Upcoming Encounters Date Type Department Care Team (Late st Contact Info) Description 11/24/2024 1:00 PM INTERNAL MEDICINE VETERINARY TECHNICIAN Procedure Surgical Procedure Visit [phone] Titus Vieyra MD [address] [place] [address] [address] [place] [address] documented as of this encounter Visit Diagnoses Not on filedocumented in this encounter Additional Health Concerns Assessment Noted Time A fall risk assessment has been complete d for the patient 04/26/2014 7:59 AM CDT documented as of this encounter Care Teams Netezza Developer Relationship Specialty Start Date End Date Jeison Orozco MD PCP - General 12/25/01 08/12/23 documented as of this encounter
--- OUTSIDE RECORDS SUMMARY | 2024-11-07 07:02 | XMS_ITS | Encounter Summary ---
Author Organization [facility] Address [address] [place] [address] Care Team Providers Care Reverberatory Skimmer Name Role Phone Jeison Orozco MD Primary Care Provider Unav ailable Reason for Visit * Reason Comments Atrial Fibrillation * Tests (Routine) - Closed Specialty Diagnoses / Procedures Referred By Delmi zee Referred To Contact Cardiology Diagnoses AF (atrial fibrillation) (HCC) Procedures GRADED EXER TEST, CARDIO (DMG) CARDIAC STRESS TST,COMPLETE Xu Rosenberg MD [address] [facility] [address] [place] [address] Referral ID Status Reason Start Date Expiration Date Visits Re quested Visits Authorized [id number] Closed 03/18/2014 03/16/2015 1 1 Encounter Details Date Type Department Care Team (Late st Contact Info) Description 03/24/2014 2:30 PM CDT Office Visit Cardiology - [facility] [address] [place] [address] [address] [place] [address] Atrial fibrillation (HCC) (Primary Dx) Social History [...] this encounter Progress Notes * Bessie Pizano - 04/06/2014 9:34 AM CDTQuick Note: Pt notified that no arrhythmias were present on GXT. * Xu Rosenberg MD - 04/05/2014 1:50 PM CDTQuick Note: Noted, negative for arrhythmia documented in this encounter Procedure Notes * Rashida Sanz MD - 03/25/2014 12:00 AM CDTAssociated Order(s): CARDIAC STRESS TST,COMPLETE GRADED EXERCISE TEST (GXT) NAME: TIMOTEO COSTELLO DATE: 03/24/2014 : 1960 SEX: F SITE: [facility]IOLOGY[facility] ORDERED BY: Xu Rosenberg MD INDICATION: Atrial fibrillation EXERCISE DATA Protocol: Dano Exercise Time: 9:45 Minutes METs: 10 Peak Heart Rate: 149 % Maximum: 90 Double Product: 24,734 HEMODYNAMIC DATA: (Heart Rate) Blood Pressure Sitting: (63) 122/80 Standing: (68) 122/80 Stage I: (99) 130/72 Stage II: (124) 164/70 Stage III: (134) 166/70 Stage IV: (149) Stage V: Recovery: (70) 114/74 ELECTROCARDIOGRAPHIC DATA: The resting EKG demonstrates NSR at a rate of 63 beats per minute and NSST wave changes. During exercise, there was 0.[address] segment depression. The patient exhibited above normal functional aerobic exercise capacity at adequate cardiac workload with normal bloodpressure response. The patient experienced chest pain and tightness during the test at peak, gone 4minutes in recovery. The EKG revealed no arrhythmia. FINAL IMPRESSION: This is a positive ECG test with reduced specificity due to baseline ECG changes. Rashida Sanz MD SB/md - PT NAME: TIMOTEO COSTELOL - cc: Xu Rosenberg MD documented in this encounter Plan of Treatment Upcoming Encounters Date Type Department Care Team (Late st Contact Info) Description 11/24/2024 1:00 PM BAR TENDER Procedure Surgical Procedure Visit [phone] Titus Vieyra MD [address] [facility] [address] [place] [address] documented as of this encounter Procedures Procedure Name Priority Date/Time Associated Diagnosis Comments GRADED EXER TEST, CARDIO (DMG) Routine 06/10/2014 AF (atrial fibrillation) (HCC) CV STRS TST XERS&/OR RX CONT ECG W/SI&R Routine 04/01/2014 8:07 AM CDT Atrial fibrillation (HCC) documented in this encounter Results * CARDIAC STRESS TST,COMPLETE (04/01/2014 8:07 AM CDT) Narrative Transcriptions Rashida Sanz MD - 03/25/2014 12:00 AM CDT GRADED EXERCISE TEST (GXT) NAME: TIMOTEO COSTELLO DATE: 03/24/2014 : 1960 SEX: F SITE: CARDIOLOGY-[facility] ORDERED BY: Xu Rosenberg MD INDICATION: Atrial fibrillation EXERCISE DATA Protocol: Dano Exercise Time: 9:45 Minutes METs: 10 Peak Heart Rate: 149 % Maximum: 90 Double Product: 24,734 HEMODYNAMIC DATA: (Heart Rate) Blood Pressure Sitting: (63) 122/80 Standing: (68) 122/80 Stage I: (99) 130/72 Stage II: (124) 164/70 Stage III: (134) 166/70 Stage IV: (149) Stage V: Recovery: (70) 114/74 ELECTROCARDIOGRAPHIC DATA: The resting EKG demonstrates NSR at a rate of63 beats per minute and NS ST wave changes. During exercise, there was 0.5to 1.[address] segment depression. The patient exhibited above normalfunctional aerobic exercise capacity at adequate cardiac workload withnormal blood pressure response. The patient experienced chest pain andtightness during the test at peak, gone 4 minutes in recovery. The EKGrevealed no arrhythmia. FINAL IMPRESSION: This is a positive ECG test with reduced specificity dueto baseline ECG changes. Rashida Sanz MD SB/ - PT NAME: TIMOTEO COSTELLO cc: Xu Rosenberg MD Twister Frame Tender [facility] [facility] documented in this encounter Visit Diagnoses Diagnosis Atrial fibrillation (HCC)- Primary Atrial fibrillation documented in this encounter Care Teams Reverberatory Skimmer Relationship Specialty Start Date End Date Jeison Orozco MD PCP - General 12/25/01 08/12/23 documented as of this encounter
--- OUTSIDE RECORDS SUMMARY | 2024-11-07 07:02 | XMS_ITS | Encounter Summary ---
Author Organization [facility] Address [address] [place] [address] Care Team Providers Care Taxi Cab Driver Name Role Phone Jeison Orozco MD Primary Care Provider Unav ailable Reason for Visit * Reason Onset Date Comments Triage 05/02/2014 Encounter Details Date Type Department Care Team (Late st Contact Info) Description 05/02/2014 Telephone Cardiology - [facility] [place] [address] [facility] [address] [place], [place] [phone] Xu Rosenberg MD [address] [place] [address] Triage Social History Tobacco Use Types Packs/Day [...] as of this encounter Progress Notes * Teresa Jordan - 05/03/2014 3:43 PM CDT Patient informed per Dr. Rosenberg that she may stop flecainide. Earlier appointment offered. She will call back if she wants to move it up and will keep Dr. Rosenberg updated. * Bessie Pizano - 05/03/2014 2:42 PM CDT ML for pt: Ok to stop flecainide. Has f/u appt scheduled for 05/27/14. Instructed to call if she wants to be seen sooner. * Xu Rosenberg MD - 05/03/2014 2:22 PM CDT Noted, ok to stop flecanide * Rebekah Castellanos - 05/03/2014 12:31 PM CDT Tonya requesting to be completely off Flecainide because she beleives that cause for the PRITCHARD... * Nimisha Jimenez - 05/02/2014 2:11 PM CDT Okay to continue on flecainide 50mg daily for now or should she try increasing it to 50mg BID? * Xu Rosenberg MD - 05/02/2014 12:31 PM CDT Noted, see if she can tolerate further and check back in next week * Ashley Cameron - 05/02/2014 9:15 AM CDT Rec'd call from patient stating that she feels that the Flecainide is causing her headaches. She has reduced the dosage of the medication to only 50mg per day and her headache pain has come down froma 10 to a 4-5 documented in this encounter Plan of Treatment Upcoming Encounters Date Type Department Care Team (Late st Contact Info) Description 11/24/2024 1:00 PM ACADEMIC MANAGER Procedure Surgical Procedure Visit [phone] Titus Vieyra MD [address] [facility] [address] [place] [address] documented as of this encounter Visit Diagnoses Not on filedocumented in this encounter Additional Health Concerns Assessment Noted Time A fall risk assessment has been complete d for the patient 04/26/2014 7:59 AM CDT documented as of this encounter Care Teams Taxi Cab Driver Relationship Specialty Start Date End Date Jeison Orozco MD PCP - General 12/25/01 08/12/23 documented as of this encounter
--- OUTSIDE RECORDS SUMMARY | 2024-11-07 07:02 | XMS_ITS | Encounter Summary ---
Author Organization [facility] Address [address] [place] [address] Care Team Providers Care Head Of Housekeeping Name Role Phone Jeison Orozco MD Primary Care Provider Unav ailable Encounter Details Date Type Department Care Team (Late st Contact Info) Description 09/12/2015 Telephone Gastroenterology - [facility] [address] [facility] [address] [place], [place] [address] Titus Vieyra MD [address] [facility] [address] [place], [place] [phone] Social History Tobacco Use Types Packs/Day Years [...] encounter Progress Notes * Devante Garnett - 09/12/2015 9:17 AM CST Notified Tonya Costello regarding instructions for the Colonoscopy bowel PREP ?? Clear liquid diet entire day prior to the procedure ?? Reviewed with Tonya Costello the start times for the bowel prep ?? Verified date/location for procedure ?? Directions/prescription/map/scheduling sheet mailed to patient ?? Patient to call us if prep is not received in 4 business days Spoke to pt S CAP MAKER documented in this encounter Plan of Treatment Upcoming Encounters Date Type Department Care Team (Late st Contact Info) Description 11/24/2024 1:00 PM DRESS CAP MAKER Procedure Surgical Procedure Visit [phone] Titus Vieyra MD [address] [place] [address] documented as of this encounter Visit Diagnoses Not on filedocumented in this encounter Additional Health Concerns Assessment Noted Time A fall risk assessment has been complete d for the patient 04/26/2014 7:59 AM CDT documented as of this encounter Care Teams Head Of Housekeeping Relationship Specialty Start Date End Date Jeison Orozco MD PCP - General 12/25/01 08/12/23 documented as of this encounter
--- OUTSIDE RECORDS SUMMARY | 2024-11-07 07:02 | XMS_ITS | Encounter Summary ---
Author Organization [facility] Address [address] [place] [address] Care Team Providers Care Retail Sales Consultant Name Role Phone Jeison rOozco MD Primary Care Provider Unav ailable Reason for Visit * Reason Onset Date Comments Orders Call 09/21/2014 no show Encounter Details Date Type Department Care Team (Late st Contact Info) Description 09/21/2014 Telephone Cardiology - [facility] [place] [address] [facility] [address] [place], [place] [phone] Xu Rosenberg MD [address] [place], [place] [phone] Orders Call (no show) Social History Tobacco Use Types Packs/Day Years [...] Progress Notes * Bessie Pizano RN - 09/21/2014 4:08 PM CST F/u appt scheduled. RVISOR COMPONENT ASSEMBLER * Xu Rosenberg MD - 09/21/2014 3:24 PM CST If she has ?'s they need to be addressed in the office RVISOR COMPONENT ASSEMBLER * Aria Soler - 09/21/2014 2:54 PM CST Called PT and spoke w/ her on 09/21/14 at 2:55 PM. She apologized for forgetting about her appointment. At first she said she sees no reason why she needed to follow up because she feels fine. Then she proceeded to say that even though she experienced no afib on it, a nurse called her and said she had a fastness in her upper chamber. She feels weird every once in awhile. She also wanted to know wh en she can get off the Diltiazem. Despite her comments, she still believes she does not need to be seen. PT can be reached at [phone]. RVISOR COMPONENT ASSEMBLER * Nimisha Jimenez RN - 09/21/2014 2:46 PM CST Patient was a no show for her follow-up appointment with today in . Please call herto see if she would like to reschedule. RVISOR COMPONENT ASSEMBLER documented in this encounter Plan of Treatment Upcoming Encounters Date Type Department Care Team (Late st Contact Info) Description 11/24/2024 1:00 PM SUPERVISOR COMPONENT ASSEMBLER Procedure Surgical Procedure Visit [phone] Titus Vieyra MD [facility] [address] [facility] [address] [place] [address] documented as of this encounter Visit Diagnoses Not on filedocumented in this encounter Additional Health Concerns Assessment Noted Time A fall risk assessment has been complete d for the patient 04/26/2014 7:59 AM CDT documented as of this encounter Care Teams Retail Sales Consultant Relationship Specialty Start Date End Date Jeison Orozco MD PCP - General 12/25/01 08/12/23 documented as of this encounter
--- OUTSIDE RECORDS SUMMARY | 2024-11-07 07:02 | XMS_ITS | Encounter Summary ---
Author Organization [facility] Address [address] [place] [address] Care Team Providers Care Computer Information Systems Instructor Name Role Phone Jeison Orozco MD Primary Care Provider Unav ailable Reason for Visit * Rehab Services (Routine) - Closed Specialty Diagnoses / Procedures Referred By Delmi zee Referred To Contact Rehabilitation Diagnoses Spondylolisthesis at L5-S1 level Scoliosis Cervical spondylosis Ashkan Amin, PA [address] [place] [address] Referral ID Status Reason Start Date Expiration Date Visits Re quested Visits Authorized [id number] Closed 04/27/2015 04/26/2016 12 12 Encounter Details Date Type Department Care Team (Late st Contact Info) Description 06/09/2015 9:30 AM CDT Office [facility] [place] [place] [address] [facility] [address] [place] [address] Fili Canela, PT [address] [place] [address] Congenital spondylolisthesis (Primary Dx); Cervical spondylosis without [...] Progress Notes * Fili Canela, PT - 06/09/2015 9:30 AM CDT MD: Ashkan Amin PT Dx: middle back pain Dx Code: 756.12, 721.0 Visit 4 of 12 SUBJECTIVE: Pain: 5/10 today. Pt. Reports: typically worse w/ prolonged standing. Will have to stand for at least 5 hours tomorrow for a show. OBJECTIVE: Manual Therapy: Prone PAs to thoracic 8 minutes Assessment: Mild discomfort in mid thoracic region with PA mobes. Significant hypomobility in thoracic spine with mobes. Therapeutic Activity: minutes Assessment: Neuromuscular Re education: verbal, visual, and/or tactile cues given throughout treatment minutes Assessment: Therapeutic Exercise: UBE 3'/3' Seated thoracic extension: 2x10 Supine horizontal abd OTB x12 Supine sash OTB x12 Supine OH pull OTB x12 Supine ER OTB x12 Cervical retractions x12 RAFAL x3' Lower Cervical / Upper Thoracic Stretch 5 x12 Cat/cow stretch 5 x12 Use of lumbar roll. x3' 30 minutes Assessment: instructed on retraction, sitting posture w/ use of lumbar roll. Roll purchased. Other: GOALS: intermediate frame tender goals: To be reached in 12 visits. [...] st Contact Info) Description 11/24/2024 1:00 PM UTILITY CLERK Procedure Surgical Procedure Visit [phone] Titus Vieyra MD [address] [place] [address] [address] [place] [address] Scheduled Orders Name Type Priority Associated Diagnoses Orde r Schedule THERAPEUTIC EXERCISES PROCEDURES Routine Congenital spondylolisthesis Cervical spondylosis without myelopathy Ordered: 06/09/2015 MANUAL THERAPY PROCEDURES Routine Congenital spondylolisthesis Cervical spondylosis without myelopathy Ordered: 06/09/2015 NON-COVERED ITEM OR SERVICE PROCEDURES Routine Congenital spondylolisthesis Cervical spondylosis without myelopathy Ordered: 06/09/2015 documented as of this encounter Visit Diagnoses Diagnosis Congenital spondylolisthesis- Primary Cervical spondylosis without myelopathy documented in this encounter Additional Health Concerns Assessment Noted Time A fall risk assessment has been complete d for the patient 04/26/2014 7:59 AM CDT documented as of this encounter Care Teams Computer Information Systems Instructor Relationship Specialty Start Date End Date Jeison Orozco MD PCP - General 12/25/01 08/12/23 documented as of this encounter
--- OUTSIDE RECORDS SUMMARY | 2024-11-07 07:02 | XMS_ITS | Encounter Summary ---
Author Organization [facility] Address [address] [place] [address] Care Team Providers Care Linseed Cake Trimmer Name Role Phone Jeison Orozco MD Primary Care Provider Unav ailable Reason for Visit * Reason Comments Atrial Fibrillation Encounter Details Date Type Department Care Team (Late st Contact Info) Description 09/30/2014 10:20 AM HUMAN RESOURCES BENEFITS SPECIALIST Office Visit Cardiology - [facility] [address] [place], [place] [phone] Xu Rosenberg MD [address] [place], [place] [phone] AF (atrial fibrillation) (HCC) (Primary Dx) Social History Tobacco Use [...] Reading Time Taken Comments Blood Pressure 110/70 09/30/2014 10:29 AM HUMAN RESOURCES BENEFITS SPECIALIST Pulse 70 09/30/2014 10:29 AM HUMAN RESOURCES BENEFITS SPECIALIST reg Temperature - - Respiratory Rate - - Oxygen Saturation - - Inhaled Oxygen Concentration - - Weight 68.5 kg (151 lb) 09/30/2014 10:29 AM HUMAN RESOURCES BENEFITS SPECIALIST Height 167.6 cm (5' 6 ) 09/30/2014 10:29 AM HUMAN RESOURCES BENEFITS SPECIALIST Body Mass Index 24.37 09/30/2014 10:29 AM HUMAN RESOURCES BENEFITS SPECIALIST documented in this encounter Functional Status Functional Status Response Date of Assess ment Hearing Problems? No 04/26/2014 Vision Problems? No 04/26/2014 Difficulty walking? No 04/26/2014 Difficulty dressing or bathing? No 04/26/2014 Problems with daily activities? No 04/26/2014 Cognitive Status Response Date of Assessm ent Memory Problems? No 04/26/2014 documented as of this encounter Patient Instructions * Patient Instructions* Bessie Pizano RN - 09/30/2014 10:40 AM HUMAN RESOURCES BENEFITS SPECIALIST Follow up with Dr. Rosenberg as needed. N RESOURCES BENEFITS SPECIALIST documented in this encounter Progress Notes * Xu Rosenberg MD - 10/04/2014 2:13 PM CST I was asked by Dr. Blackmon to [...] History Diagnosis Date ??? AF (atrial fibrillation) ([facility]) 06/21/2013 ??? Arrhythmia PAF Allergies: Penicillins Rash Medications: Smoking status: Former Smoker For 10.00 Years Smokeless tobacco: Never Used Comment: quit 26 yrs ago Alcohol Use: Yes Comment: socially, 7 drinks/week Family history: no sudden cardiac . Brother and sister both with AF Physical: Wt Readings from Last 3 Encounters: 09/30/14 : 151 lb (68.493 kg) 05/27/14 : 149 lb (67.586 kg) 04/22/14 : 149 lb (67.586 kg) General: Alert and oriented in no [...] AF - s/p cryo - doing well and no AF on 30d monitor. Great news! Follow up prn Xu Rosenberg MD Clinical Cardiac Electrophysiology [facility] N RESOURCES BENEFITS SPECIALIST documented in this encounter Plan of Treatment Upcoming Encounters Date Type Department Care Team (Late st Contact Info) Description 11/24/2024 1:00 PM HUMAN RESOURCES BENEFITS SPECIALIST Procedure Surgical Procedure Visit [phone] Titus Vieyra MD [address] [place] [address] Scheduled Orders Name Type Priority Associated Diagnoses Orde r Schedule OFFICE/OUTPT VISIT,EST,LEVL IV PROCEDURES Routine AF (atrial fibrillation) (HCC) Ordered: 10/04/2014 documented as of this encounter Visit Diagnoses Diagnosis AF (atrial fibrillation) (HCC)- Primary Atrial fibrillation documented in this encounter Additional Health Concerns Assessment Noted Time A fall risk assessment has been complete d for the patient 04/26/2014 7:59 AM CDT documented as of this encounter Care Teams Linseed Cake Trimmer Relationship Specialty Start Date End Date Jeison Orozco MD PCP - General 12/25/01 08/12/23 documented as of this encounter
--- OUTSIDE RECORDS SUMMARY | 2024-11-07 07:02 | XMS_ITS | Encounter Summary ---
Author Organization [facility] Address [address] [place] [address] Care Team Providers Care Tube Winder Hand Name Role Phone Jeison Orozco MD Primary Care Provider Unav ailable Reason for Visit * Reason Comments Refill Request Encounter Details Date Type Department Care Team (Late st Contact Info) Description 12/01/2014 Refill Cardiology - [facility] [address] [place], [place] [address] Jl Blackmon MD [address] [place] [address] Refill Request Social History Tobacco Use Types [...] st Contact Info) Description 11/24/2024 1:00 PM TIMBER INCISOR OPERATOR Procedure Surgical Procedure Visit [phone] Titus Vieyra MD [address] [place] [address] [address] [place] [address] documented as of this encounter Visit Diagnoses Not on filedocumented in this encounter Additional Health Concerns Assessment Noted Time A fall risk assessment has been complete d for the patient 04/26/2014 7:59 AM CDT documented as of this encounter Care Teams Tube Winder Hand Relationship Specialty Start Date End Date Jeison Orozco MD PCP - General 12/25/01 08/12/23 documented as of this encounter
--- OUTSIDE RECORDS SUMMARY | 2024-11-07 07:02 | XMS_ITS | Encounter Summary ---
Author Organization [facility] Address [address] [place] [address] Care Team Providers Care Sr Risk Management Consultant Name Role Phone Jeison Orozco MD Primary Care Provider Unav ailable Reason for Visit * Reason Comments Back Pain * Rehab Services (Routine) - Closed Specialty Diagnoses / Procedures Referred By Delmi zee Referred To Contact Rehabilitation Diagnoses Spondylolisthesis at L5-S1 level Scoliosis Cervical spondylosis Ashkan Amin, PA [address] [facility] [address] [address] [address] [place] [address] Referral ID Status Reason Start Date Expiration Date Visits Re quested Visits Authorized [id number] Closed 04/27/2015 04/26/2016 12 12 Encounter Details Date Type Department Care Team (Latest Contact Info) Description 06/06/2015 9:30 AM CDT Office Visit Physical Therapy - [place] Ankit Neumann [address] [place], [place] [phone] Bonita Chin, GONZALO [address] [place], [place] [phone] Cervical spondylosis (Primary Dx); Congenital spondylolisthesis Social History Tobacco Use Types Packs/Day Years [...] Progress Notes * Bonita Chin, PT - 06/06/2015 9:41 AM CDT MD: Ashkan Amin PT Dx: middle back pain Dx Code: 756.12, 721.0 Visit 3 of SUBJECTIVE: Pain: 5/10 today. Pt. Reports: Pt reports that she went golfing this AM, so her upper back is a little sore now. OBJECTIVE: Manual Therapy: Prone PAs to thoracic STM to scap/thoracic FIRST AID TRAINER 12 minutes Assessment: Mild discomfort in mid thoracic region with PA mobes. Significant hypomobility in thoracic spine with mobes. Therapeutic Activity: minutes Assessment: Neuromuscular Re education: verbal, visual, and/or tactile cues given throughout treatment minutes Assessment: Therapeutic Exercise: UBE 3'/3' Seated thoracic extension: 2x10 Seated thoracic rotation with self overpressure: 2x10 R/L Seated upper trap stretch with chair: x10, 5 hold Supine horizontal abd YTB x12 Supine sash YTB x12 Supine OH pull YTB x12 Supine ER YTB x12 Rows/shoulder extension: GTB: 2x10 ea FIRST AID TRAINER Ab roller up wall: x20 SKTC: x20 30 minutes Assessment: Added self overpressure for thoracic rotation. Pt c/o lower back pain during exercises today. Instructed pt to add overpressure with upper trap stretching in chair. Other: GOALS: alf goals: To be reached in 12 visits. [...] st Contact Info) Description 11/24/2024 1:00 PM CONTRACT FORESTER Procedure Surgical Procedure Visit [phone] Titus Vieyra MD [address] [facility] [address] [place] [address] Scheduled Orders Name Type Priority Associated Diagnoses Orde r Schedule THERAPEUTIC EXERCISES PROCEDURES Routine Cervical spondylosis Congenital spondylolisthesis Ordered: 06/06/2015 MANUAL THERAPY PROCEDURES Routine Cervical spondylosis Congenital spondylolisthesis Ordered: 06/06/2015 documented as of this encounter Visit Diagnoses Diagnosis Cervical spondylosis- Primary Cervical spondylosis without myelopathy Congenital spondylolisthesis documented in this encounter Additional Health Concerns Assessment Noted Time A fall risk assessment has been complete d for the patient 04/26/2014 7:59 AM CDT documented as of this encounter Care Teams Sr Risk Management Consultant Relationship Specialty Start Date End Date Jeison Orozco MD PCP - General 12/25/01 08/12/23 documented as of this encounter
--- OUTSIDE RECORDS SUMMARY | 2024-11-07 07:02 | XMS_ITS | Encounter Summary ---
Author Organization [facility] Address [address] [place] [address] Care Team Providers Care Center Manager Name Role Phone Jeison Orozco MD Primary Care Provider Unav ailable Reason for Visit * Reason Comments Neck Pain * Rehab Services (Routine) - Closed Specialty Diagnoses / Procedures Referred By Delmi zee Referred To Contact Rehabilitation Diagnoses Spondylolisthesis at L5-S1 level Scoliosis Cervical spondylosis Ashkan Amin, PA [address] [place] [address] Referral ID Status Reason Start Date Expiration Date Visits Re quested Visits Authorized [id number] Closed 04/27/2015 04/26/2016 12 12 Encounter Details Date Type Department Care Team (Late st Contact Info) Description 06/02/2015 9:00 AM CDT Office Visit [place] - [place] [address] [place] [address] Fili Canela, PT [address] [place], [place] [phone] Congenital spondylolisthesis (Primary Dx); Cervical spondylosis without [...] Progress Notes * Fili Canela, PT - 06/02/2015 11:37 AM CDT MD: Ashkan Amin PT Dx: middle back pain Dx Code: 756.12, 721.0 Visit 2 of 12 SUBJECTIVE: Pain: 1/10. Pt. Reports: Managing well at time of treatment. Has been taking her medications. OBJECTIVE: Manual Therapy: Prone PAs to thoracic STM to scap/thoracic1 12 minutes Assessment: impairments w/ joint mobility of the cervicothoracic region. Therapeutic Activity: minutes Assessment: Neuromuscular Re education: verbal, visual, and/or tactile cues given throughout treatment minutes Assessment: Therapeutic Exercise: UBE 3'/3' Reassess x7' Seated thoracic extension: 2x10 Seated thoracic rotation: 2x10 R/L Seated upper trap stretch with chair: x10, 5 hold Supine horizontal abd YTB x12 Supine sash YTB x12 Supine OH pull YTB x12 Supine ER YTB x12 25 minutes Assessment: progressed w/ light resistive exercises in supine. Other: GOALS: terminal manager goals: To be reached in 12 [...] Pt will report improved standing tolerance. PLAN: Continue with current interventions. Reassess pt's symptoms and progress HEP as tolerated. documented in this encounter Plan of Treatment Upcoming Encounters Date Type Department Care Team (Late st Contact Info) Description 11/24/2024 1:00 PM EXPLOITATION ANALYST Procedure Surgical Procedure Visit [phone] Titus Vieyra MD [address] [place] [address] [address] [place] [address] Scheduled Orders Name Type Priority Associated Diagnoses Orde r Schedule MANUAL THERAPY PROCEDURES Routine Congenital spondylolisthesis Cervical spondylosis without myelopathy Ordered: 06/02/2015 THERAPEUTIC EXERCISES PROCEDURES Routine Congenital spondylolisthesis Cervical spondylosis without myelopathy Ordered: 06/02/2015 documented as of this encounter Visit Diagnoses Diagnosis Congenital spondylolisthesis- Primary Cervical spondylosis without myelopathy documented in this encounter Additional Health Concerns Assessment Noted Time A fall risk assessment has been complete d for the patient 04/26/2014 7:59 AM CDT documented as of this encounter Care Teams Center Manager Relationship Specialty Start Date End Date Jeison Orozco MD PCP - General 12/25/01 08/12/23 documented as of this encounter
--- OUTSIDE RECORDS SUMMARY | 2024-11-07 07:02 | XMS_ITS | Encounter Summary ---
Author Organization [facility] Address [address] [place] [address] Care Team Providers Care Chucking And Boring Machine Operator Name Role Phone Jeison Orozco MD Primary Care Provider Unav ailable Reason for Visit * Rehab Services (Routine) - Closed Specialty Diagnoses / Procedures Referred By Delmi zee Referred To Contact Rehabilitation Diagnoses Spondylolisthesis at L5-S1 level Scoliosis Cervical spondylosis Ashkan Amin, PA [address] [place] [address] Referral ID Status Reason Start Date Expiration Date Visits Re quested Visits Authorized [id number] Closed 04/27/2015 04/26/2016 12 12 Encounter Details Date Type Department Care Team (Late st Contact Info) Description 06/13/2015 11:45 AM CDT Office Visit Physical Therapy - [facility] [address] [facility] [address] [place] [address] Fili Canela, PT [address] [place] [address] Congenital spondylolisthesis (Primary Dx); Cervical spondylosis without [...] Progress Notes * Fili Canela, PT - 06/13/2015 12:41 PM CDT MD: Ashkan Amin PT Dx: middle back pain Dx Code: 756.12, 721.0 Visit 5 of 12 SUBJECTIVE: Pain: 5/10 today. Pt. Reports: bad pain on Friday after prolonged standing or work. OBJECTIVE: Manual Therapy: Prone PAs to thoracic [...] w/ RAFAL x3' Supine elbow press x10 Quadruped thoracic rotation w/ breathing x10 R/L 3 way lat stretch w/ SB at table sitting x 10 ea 30 minutes Assessment: continued w/ interventions to improve mobility through the thoracic spine. 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 [...] Contact Info) Description 11/24/2024 1:00 PM SUPERVISOR AIR CONDITIONING INSTALLER Procedure Surgical Procedure Visit [phone] Titus Vieyra MD [address] [place] [address] [address] [place] [address] Scheduled Orders Name Type Priority Associated Diagnoses Orde r Schedule THERAPEUTIC EXERCISES PROCEDURES Routine Congenital spondylolisthesis Cervical spondylosis without myelopathy Ordered: 06/13/2015 MANUAL THERAPY PROCEDURES Routine Congenital spondylolisthesis Cervical spondylosis without myelopathy Ordered: 06/13/2015 documented as of this encounter Visit Diagnoses Diagnosis Congenital spondylolisthesis- Primary Cervical spondylosis without myelopathy documented in this encounter Additional Health Concerns Assessment Noted Time A fall risk assessment has been complete d for the patient 04/26/2014 7:59 AM CDT documented as of this encounter Care Teams Chucking And Boring Machine Operator Relationship Specialty Start Date End Date Jeison Orozco MD PCP - General 12/25/01 08/12/23 documented as of this encounter
--- OUTSIDE RECORDS SUMMARY | 2024-11-07 07:03 | XMS_ITS | Encounter Summary ---
Author Organization [facility] Address [address] [place] [address] Care Team Providers Care Contract Sheltered Workshop Supervisor Name Role Phone Jeison Orozco MD Primary Care Provider Unav ailable Reason for Visit * Reason Comments Refill Request Encounter Details Date Type Department Care Team (Late st Contact Info) Description 05/05/2013 Refill Gastroenterology - [facility], [place] [address] [facility] [address] [place] [address] Titus Vieyra MD [address] [place] [address] [address] [place], [place] [phone] Refill Request Social History Tobacco Use Types [...] as of this encounter Progress Notes * Grace Matias RN - 05/06/2013 9:26 AM CDT E-rx refill request for suprep. Titus Vieyra MD 01/14/2013 3:58 PM Signed Flex sig 01/11/13 for hx of adenomas. 3 mm sigmoid polyp was adenoma. No recurrent polyp at tattoo site at 40 cm Called pt, spoke w/ . Results and rec's given.. --full colonoscopy 2014 w/ suprep Titus Vieyra MD [facility] Gastroenterology Request for supep refused as unexpected request. documented in this encounter Plan of Treatment Upcoming Encounters Date Type Department Care Team (Late st Contact Info) Description 11/24/2024 1:00 PM SAMPLE WRAPPER Procedure Surgical Procedure Visit [phone] Titus Vieyra MD [address] [place] [address] documented as of this encounter Visit Diagnoses Not on filedocumented in this encounter Care Teams Contract Sheltered Workshop Supervisor Relationship Specialty Start Date End Date Jeison Orozco MD PCP - General 12/25/01 08/12/23 documented as of this encounter
--- OUTSIDE RECORDS SUMMARY | 2024-11-07 07:03 | XMS_ITS | Encounter Summary ---
Author Organization [facility] Address [address] [place] [address] Care Team Providers Care Training Officer Name Role Phone Jeison Orozco MD Primary Care Provider Unav ailable Reason for Visit * Reason Onset Date Comments Path 01/14/2013 Encounter Details Date Type Department Care Team (Late st Contact Info) Description 01/14/2013 Telephone Gastroenterology - [facility] [address] [facility] [address] [place], [place] [address] Titus Vieyra MD [address] [place] [address] [address] [place], [place] [phone] Path Social History Tobacco Use Types Packs/Day [...] as of this encounter Progress Notes * Tiuts Vieyra MD - 01/14/2013 3:56 PM CDT Flex sig 01/11/13 for hx of adenomas. 3 mm sigmoid polyp was adenoma. No recurrent polyp at tattoo site at 40 cm Called pt, spoke w/ . Results and rec's given.. --full colonoscopy 2014 w/ suprep Titus Vieyra MD [facility] Gastroenterology CC: Dr Mathur * Titus Vieyra MD - 01/14/2013 3:56 PM CDT documented in this encounter Plan of Treatment Upcoming Encounters Date Type Department Care Team (Late st Contact Info) Description 11/24/2024 1:00 PM ARTISTIC DIRECTOR Procedure Surgical Procedure Visit [phone] Titus Vieyra MD [address] [place] [address] documented as of this encounter Visit Diagnoses Not on filedocumented in this encounter Care Teams Training Officer Relationship Specialty Start Date End Date Jeison Orozco MD PCP - General 12/25/01 08/12/23 documented as of this encounter
--- OUTSIDE RECORDS SUMMARY | 2024-11-07 07:03 | XMS_ITS | Encounter Summary ---
Author Organization [facility] Address [address] [place] [address] Care Team Providers Care Armament Repairer Name Role Phone Jeison Orozco MD Primary Care Provider Unav ailable Reason for Visit * Reason Onset Date Comments Patient Question 11/27/2012 Encounter Details Date Type Department Care Team (Late st Contact Info) Description 11/27/2012 Telephone Orthopaedics - [facility], Clem Hidalgo [address] [facility] [address] [place] [address] Otoniel Sauer MD [address] [facility] [address] [place], [place] [phone] Patient Question Social History Tobacco Use Types [...] as of this encounter Progress Notes * Tresa Alvares - 11/27/2012 11:42 AM CST Spoke with patient and advised her that an MRI is not indicated for her injury at this time. She isfeeling better and may hold off on her ortho appt. She is aware that typically there is no additional tx. needed. OYMENT ADJUDICATOR * Elizabeth Degroot - 11/27/2012 11:17 AM CST Tonya has fractured her coccyx and had x-rays @ [facility] 11/26/12. Johanna has removed her tailbone a few years ago. She wanted to know if [facility] wanted to order an MRI for her before her scheduled appointmenton 12/04/12. Please give her a call. OYMENT ADJUDICATOR documented in this encounter Plan of Treatment Upcoming Encounters Date Type Department Care Team (Late st Contact Info) Description 11/24/2024 1:00 PM EMPLOYMENT ADJUDICATOR Procedure Surgical Procedure Visit [phone] Titus Vieyra MD [address] [facility] [address] [place] [address] documented as of this encounter Visit Diagnoses Not on filedocumented in this encounter Care Teams Armament Repairer Relationship Specialty Start Date End Date Jeison Orozco MD PCP - General 12/25/01 08/12/23 documented as of this encounter
--- OUTSIDE RECORDS SUMMARY | 2024-11-07 07:03 | XMS_ITS | Encounter Summary ---
Author Organization [facility] Address [address] [place] [address] Care Team Providers Care Low Pressure Boiler Operator Name Role Phone Jeison Orozco MD Primary Care Provider Unav ailable Encounter Details Date Type Department Care Team (Late st Contact Info) Description 01/08/2013 Telephone Gastroenterology - [facility] [address] [facility] [address] [place], [place] [address] Titus Vieyra MD [address] [facility] [address] [place], [place] [phone] Social History Tobacco Use Types Packs/Day Years [...] as of this encounter Progress Notes * Mony Olvera - 01/08/2013 10:59 AM CDT Unable to leave message on answering machine. Confirming date/location/clear liquid diet entire dayprior to procedure/start time of bowel prep. Patient to call us if prescription or prep instructions are needed. Please call prep RN with any medication questions. Patient to call prep RN with any changes to medications or health history since last office visit documented in this encounter Plan of Treatment Upcoming Encounters Date Type Department Care Team (Late st Contact Info) Description 11/24/2024 1:00 PM TREE PLANTER Procedure Surgical Procedure Visit [phone] Titus Vieyra MD [address] [place] [address] [address] [place] [address] documented as of this encounter Visit Diagnoses Not on filedocumented in this encounter Care Teams Low Pressure Boiler Operator Relationship Specialty Start Date End Date Jeison Orozco MD PCP - General 12/25/01 08/12/23 documented as of this encounter
--- OUTSIDE RECORDS SUMMARY | 2024-11-07 07:03 | XMS_ITS | Encounter Summary ---
Author Organization [facility] Address [address] [place] [address] Care Team Providers Care Automotive Electrician Helper Name Role Phone Jeison Orozco MD Primary Care Provider Unav ailable Encounter Details Date Type Department Care Team (Late st Contact Info) Description 08/03/2012 9:00 AM CDT - 08/03/2012 9:30 AM CDT Surgery [facility] [place] [address] [place] [address] Titus Vieyra MD [address] [place] [address] [address] [place] [address] COLONOSCOPY, POSSIBLE BIOPSY, POSSIBLE POLYPECTOMY 25572 Surgery Details Date/Time Status Location OR Service Patient Class Case Class Case Type Trauma Case? 08/03/2012 9:00 AM Posted [facility], [facility] OR Gastroenterology Outpatient Panel 1 Procedure LRB Anes Op Region Wound Class Comments COLONOSCOPY, POSSIBLE BIOPSY, POSSIBLE POLYPECTOMY 82746 N/A Conscious Sedation Clean Contaminated COLONOSCOPY, POSSIBLE BIOPSY, POSSIBLE POLYPECTOMY 18236 Surgeon Surgeon Role Service Panel Titsu Vieyra MD Primary Gastroenterology 1 documented in this [...] Sign Reading Time Taken Comments Blood Pressure 139/74 08/03/2012 9:20 AM CDT Pulse 60 08/03/2012 9:20 AM CDT Temperature 37.2 ??C (99 ??F) 08/03/2012 9:20 AM CDT Respiratory Rate 16 08/03/2012 9:20 AM CDT Oxygen Saturation - - Inhaled Oxygen Concentration - - Weight 68.5 kg (151 lb) 08/03/2012 9:20 AM CDT Height 167.6 cm (5' 6 ) 08/03/2012 9:20 AM CDT Body Mass Index 24.37 08/03/2012 9:20 AM CDT documented in this encounter Medications at Time of Discharge Medication Sig Dispensed Refills Start Date End Date TURMERIC OR 1 Tab by Does not apply route daily. 06/22/2013 AJD-DFu-BlWj-NaSulf-Na Asc-C (MOVIPREP) 100 G Oral Recon Soln Movi prep, as directed, dispense one kit 1 Each 0 07/28/2012 11/25/2012 Multiple Vitamins-Minerals (ONE DAILY COMPLETE) Oral Tab Take 1 Tab by mouth daily. 06/22/2013 Ibuprofen 200 MG Oral TabIndications:Fatigue,B ack pain,Cough,History of foreign travel,Other, multiple, and unspecified sites, insect bite, nonvenomous, without mention of infection(919.4) 1 TABLET EVERY 4 TO 6 HOURS NEEDED 08/02/2017 ZOLPIDEM TARTRATE 5 MG OR TABS 1 TABLET AT BEDTIME 10 Tab 0 02/25/2011 05/05/2018 documented as of this encounter Progress Notes * Generated, Interface - 08/04/2012 8:31 AM CDT documented in this encounter OR Notes * OR PostOp - Daisha Bro Rn - 08/03/2012 10:36 AM CDT Very sleepy * OR Surgeon - Titus Vieyra MD - 08/03/2012 10:25 AM CDT ENDOSCOPY OPERATIVE REPORT Patient Name: Tonya Costello Date of : 1960 Date of Procedure: 08/03/2012 Preoperative Diagnosis: Screening Postoperative Diagnosis: polyps, diverticulosis Procedure Performed: Colonoscopy with hot snare, colonoscopy with injection for lifting and tattooing, colonoscopy with biopsy Anesthesia Given: Versed 10 mg IV, fentanyl 100 mcg IV all given in divided doses as per protocol. Endoscopist: Titus Vieyra MD Procedure: [...] was carefully examined and the preparation was good. The patient tolerated the procedure well. FINDINGS: Tortuous sigmoid colon. Small hernandez-colonic diverticulosis noted. In the cecum, the scope was then retroflexed and withdrawn to the distal ascending colon while evaluating the mucosa. The scope was then straightened and then reinserted into the cecum and withdrawn in the forward viewing position. A 3 mm polyp was seen in the cecum and was removed with the cold biopsy forceps. A sessile 8 mm polyp was seen in the ascending colon and was removed with snare electrocautery. These were placed in the same container. A flat 13 mm polyp was noted in the sigmoid colon, around 40 cm from the anus. Using a sclerotherapy needle, the mucosa underneath the polyp was injected with a couple ml of thomas ink for lifting andtatoo'ing purposes. The polyp was successfully raised off the underlying mucosa. The polyp was thenremoved with hot snare polypectomy and retrieved. Resection looked complete without sign of bleeding, perforation, or residual polyp. The overall appearance of the mucosa was normal. At the anal verge the endoscope was retroverted, medium to large internal hemorrhoids were seen, noother abnormalities were indentified. Throughtout the procedure vital signs were stable. PLAN: Patient is to follow a high fiber, low fat diet and followup with primary physician for routine care. I will communicate results of the pathology with the patient. May consider flexible sigmoidoscopy in 3-6 months to check the site at 40 cm. The patient and substitute bus driver were informed of the endoscopic findings and was also given a copy of findings, postoperative instructions, and postoperative precautions. Titus Vieyra MD [facility] Gastroenterology * OR PreOp - Titus Vieyra MD - 08/03/2012 9:49 AM CDT Tonya Costello presents for endoscopy. No change to h/p from 07/28/12. Denies fhx of crc/polyps, bleeding or change in habits.. The risks and benefits of the procedure were discussed in detail with the patient, including the risks of bleeding, infection, inaccuracy or polyp miss rate, side effect of medication and allergy to medication, and perforation among others. Additionally, radiological alternatives to the procedure are available and the risks and benefits of these alternatives were discussed with the patient. No past medical history on file. Current Outpatient Prescriptions on File Prior to Encounter: XTT-XOp-JxDl-NaSulf-Na Asc-C (MOVIPREP) 100 G Oral Recon Soln Movi prep, as directed, dispense one kit Disp: 1 Each Rfl: 0 Azithromycin 250 MG Oral Tab 2 po today, then 1 po daily Disp: 6 Tab Rfl: 0 Multiple Vitamins-Minerals (ONE DAILY COMPLETE) Oral Tab Take 1 Tab by mouth daily. Disp: Rfl: Ibuprofen 200 MG Oral Tab 1 TABLET EVERY 4 TO 6 HOURS NEEDED Disp: Rfl: Penicillins Rash Past Surgical History REMOVAL OF COCCYX OTHER SURGICAL HISTORY Comment facial plastic surgery ROS: As above. No anne, visual/hearing changes, [...] soft, nt/nd. EXT: no edema A/p 1 colonoscopy today. Titus Vieyra MD [facility] Gastroenterology documented in this encounter Plan of Treatment Upcoming Encounters Date Type Department Care Team (Late st Contact Info) Description 11/24/2024 1:00 PM WALL SCRAPER Procedure Surgical Procedure Visit [phone] Titus Viyera MD [address] [facility] [address] [place] [address] documented as of this encounter Procedures Procedure Name Priority Date/Time Associated Diagnosis Comments COLONOSCOPY, POSSIBLE BIOPSY, POSSIBLE POLYPECTOMY 82064 08/03/2012 9:46 AM CDT Special screening for malignant neoplasms, colon Benign neoplasm of colon Diverticulosis of colon (without mention of hemorrhage) Other congenital anomalies of intestine Internal hemorrhoids without mention of complication COLONOSCOPY, POSSIBLE BIOPSY, POSSIBLE POLYPECTOMY 40357 08/03/2012 9:46 AM CDT Special screening for malignant neoplasms, colon Benign neoplasm of colon Diverticulosis of colon (without mention of hemorrhage) Other congenital anomalies of intestine Internal hemorrhoids without mention of complication COLONOSCOPY, POSSIBLE BIOPSY, POSSIBLE POLYPECTOMY 35348 08/03/2012 9:46 AM CDT Special screening for malignant neoplasms, colon Benign neoplasm of colon Diverticulosis of colon (without mention of hemorrhage) Other congenital anomalies of intestine Internal hemorrhoids without mention of complication documented in this encounter Visit Diagnoses Diagnosis Special screening for malignant neoplasms, colon Benign neoplasm of colon Diverticulosis of colon (without mention of hemorrhage) Other congenital anomalies of intestine Internal hemorrhoids without mention of complication documented in this encounter Care Teams Automotive Electrician Helper Relationship Specialty Start Date End Date Jeison Orozco MD PCP - General 12/25/01 08/12/23 documented as of this encounter
--- OUTSIDE RECORDS SUMMARY | 2024-11-07 07:03 | XMS_ITS | Encounter Summary ---
Author Organization [facility] Address [address] [place] [address] Care Team Providers Care Receiver Setter Name Role Phone Jeison Orozco MD Primary Care Provider Unav ailable Reason for Visit * Reason Onset Date Comments Hospital F/U 03/04/2014 Encounter Details Date Type Department Care Team (Late st Contact Info) Description 03/04/2014 Telephone Cardiology - [facility], [place] [address] [place] [address] Xu Rosenberg MD [address] [place] [address] Hospital F/U Social History Tobacco Use Types Packs/Day Years [...] encounter Progress Notes * Nimisha Jimenez - 03/07/2014 10:50 AM CDT Currently scheduled to see 03/16/14 in [facility]. * Felix, Interface - 03/04/2014 1:51 PM CDT * Merle Parker - 03/04/2014 12:39 PM CDT Tonya Costello was discharged home on 02-28-14 after an inpatient stay at [facility]. The patient requires a follow-up appointment with a specialty provider only according their discharge instructions. Those appointments have been scheduled. Additional follow up needed from Specialty MD Office to schedule appointment(s)? No Future Appointments Date Time Provider Department Center 03/16/2014 2:20 PM Xu Rosenberg MD [facility] The discharge summary was present in the hospital portal and will appear as a link below to the media tab within 2 hours. *Note: Patients may have called their physician office(s) to schedule their follow-up appointments after the creation of this phone encounter. Please review the patient's future appointments in [facility] before contacting them to schedule follow-up appointments. documented in this encounter Plan of Treatment Upcoming Encounters Date Type Department Care Team (Late st Contact Info) Description 11/24/2024 1:00 PM MANAGER FINE DINING Procedure Surgical Procedure Visit [phone] Titus Vieyra MD [address] [place] [address] documented as of this encounter Visit Diagnoses Not on filedocumented in this encounter Care Teams Receiver Setter Relationship Specialty Start Date End Date Jeison Orozco MD PCP - General 12/25/01 08/12/23 documented as of this encounter
--- OUTSIDE RECORDS SUMMARY | 2024-11-07 07:03 | XMS_ITS | Encounter Summary ---
Author Organization [facility] Address [address] [place] [address] Care Team Providers Care Ict Business Development Manager Name Role Phone Jeison Orozco MD Primary Care Provider Unav ailable Reason for Visit * Reason Comments Convenient Care F/U f/o wound check l fo ot Encounter Details Date Type Department Care Team (Late st Contact Info) Description 06/09/2013 6:20 PM CDT Office Visit [facility], [address] [place], [place] [address] Cecilia Lozada MD [address] [facility] [address] [place], [place] [address] Visit for wound check (Primary Dx); Cellulitis Social History Tobacco Use Types Packs/Day Years [...] Sign Reading Time Taken Comments Blood Pressure 133/78 06/09/2013 6:32 PM CDT Pulse 58 06/09/2013 6:32 PM CDT Temperature 36.7 ??C (98.1 ??F) 06/09/2013 6:32 PM CD T Respiratory Rate 18 06/09/2013 6:32 PM CDT Oxygen Saturation 99% 06/09/2013 6:32 PM CDT Inhaled Oxygen Concentration - - Weight - - Height - - Body Mass Index - - documented in this encounter Patient Instructions * Patient Instructions* Cecilia Lozada MD - 06/09/2013 6:37 PM CDT Diagnosis : Visit for wound check (primary encounter diagnosis) Cellulitis Diagnosis made at the [facility] are typically made on a provisional basis. Medications Prescribed: Signed Prescriptions Disp Refills Doxycycline Hyclate (ADOXA) 100 MG Oral Tab 14 tablet 0 Sig: Take 1 tablet by mouth 2 (two) times daily for 7 days. Please follow up with the physician recommended within 2 days. Sutures out in 7 days. Check the wound twice a day for signs of infection (redness, swelling, yellow drainage, fever, increasing pain), then re-apply antibiotic ointment such as bacitracin ointment or Neosporin (polymyxin B/bacitracin) ointment to the wound. Bathing instructions: 1) if a bandage was applied, leave the bandage on, and shower/bathe with the bandage on until the end of your shower/bath; then remove the bandage; 2) Gently apply soap to the wound area and rinse briefly. 3) Pat the wound area dry with a clean towel, 4) Allow the wound to dryfully (blow dry if needed). 5) Perform a wound check. 6) reapply antibiotic ointment (and bandage). If you were prescribed antibiotics, please take your first dose as soon as possible today, and continue as prescribed until course is completed. If you develop any signs of infection or if your condition worsens in any way or does not improve as expected, call the [facility] at [address] ([phone]). If you are experiencing a condition that is life-threatening, please call 911. documented in this encounter Progress Notes * Cecilia Lozada MD - 06/09/2013 7:03 PM CDT History: No history of fever or other problems related to the wound per patient. Exam: Wound show no sign if infection. Mild swelling, scant serosanguinous drainage, mild erythema noted.No fluctuance. Diagnosis: Visit for wound check (primary encounter diagnosis) Cellulitis Assessment & Plan: Patient advised to continue current care. Advised to schedule a follow up with [facility] in 1-2 days. Advised to [facility] or follow up with primary care provider if any feveror signs of infection develop. documented in this encounter Plan of Treatment Upcoming Encounters Date Type Department Care Team (Late st Contact Info) Description 11/24/2024 1:00 PM TANK CLEANER Procedure Surgical Procedure Visit [phone] Titus Vieyra MD [address] [place] [address] [address] [place] [address] Scheduled Orders Name Type Priority Associated Diagnoses Orde r Schedule OFFICE/OUTPT VISIT,EST,LEVL II PROCEDURES Routine Visit for wound check Cellulitis Ordered: 06/09/2013 documented as of this encounter Visit Diagnoses Diagnosis Visit for wound check- Primary Encounter for other specified aftercare Cellulitis Cellulitis and abscess of unspecified site documented in this encounter Care Teams Ict Business Development Manager Relationship Specialty Start Date End Date Jeison Orozco MD PCP - General 12/25/01 08/12/23 documented as of this encounter
--- OUTSIDE RECORDS SUMMARY | 2024-11-07 07:03 | XMS_ITS | Encounter Summary ---
Author Organization [facility] Address [address] [place] [address] Care Team Providers Care Bus And Trolley Inspecting Dispatcher Name Role Phone Jeison Orozco MD Primary Care Provider Unav ailable Reason for Referral * OFFICE VISIT (Routine) - Closed Specialty Diagnoses / Procedures Referred By Delmi zee Referred To Contact Cardiology Diagnoses AF (atrial fibrillation) (HCC) Palpitations Jl Blackmon MD [address] [place] [id number] Referral ID Status Reason Start Date Expiration Date Visits Re quested Visits Authorized [id number] Closed 12/23/2013 12/23/2014 1 1 Scheduling Instructions THIS IS NOT A REFERRAL This service can be performed at the following locations. Please call one of the numbers listed below to schedule an appointment. [facility] Cardiology at [facility] - [address], [address] [place] (phone: [phone]) [facility] Cardiology at [facility] - [address] [place] [address] Eneida Vanessa Luu, and T[place] - [place] Verdugo [place], and [place] - [facility] Cardiology at [facility] - [address] [place] [address], [address], [place] (phone: [phone]) If you are confident that your benefit plan will not require a referral or authorization, please feel free to schedule your appointment immediately. However, if you are unsure about the requirements for authorization, please wait 72 hours and then contact the [facility] at . At that time, you will be provided with any authorization numbers or be assured that none are required. You can then schedule your appointment. Failure to obtain required authorization numbers can create reimbursement difficulties for you. N BUILDER Reason for Visit * Reason Comments Atrial Fibrillation * OFFICE VISIT (Routine) - Closed Specialty Diagnoses / Procedures Referred By Contac t Referred To Contact Cardiology Diagnoses AF (atrial fibrillation) (HCC) Jl Blackmon MD [address] [place] [address] [address] Referral ID Status Reason Start Date Expiration Date Visits Re quested Visits Authorized [id number] Closed 06/22/2013 06/22/2014 1 1 Encounter Details Date Type Department Care Team (Late st Contact Info) Description 12/23/2013 10:30 AM ORGAN BUILDER Office Visit Cardiology - [facility] [address] [facility] [address] [place] [address] Jl Blackmon MD [address] [place] [address] AF (atrial fibrillation) (HCC) (Primary Dx); Palpitations Social History Tobacco [...] Sign Reading Time Taken Comments Blood Pressure 116/70 12/23/2013 10:28 AM ORGAN BUILDER Pulse 68 12/23/2013 10:28 AM ORGAN BUILDER Temperature - - Respiratory Rate - - Oxygen Saturation - - Inhaled Oxygen Concentration - - Weight 65.8 kg (145 lb) 12/23/2013 10:28 AM ORGAN BUILDER Height 168.9 cm (5' 6.5 ) 12/23/2013 10:28 AM CS T Body Mass Index 23.05 12/23/2013 10:28 AM ORGAN BUILDER documented in this encounter Progress Notes * Jl Blackmon MD - 12/23/2013 10:35 AM CST Tonya Costello is a 53 year old female with symptomatic PAF s/p DIONTE/DCCV at [facility] 05/19/13. She has rare palpitations, none sustained. Only when stressed/anxious. She is changing jobs - looking forward to less stress at work. The patient otherwise denies chest pain, shortness of breath, lightheadedness, syncope, orthopnea, paroxysmal nocturnal dyspnea, or edema. HISTORY: Past Medical History Diagnosis Date ??? AF (atrial fibrillation) 06/21/2013 Medications: Current Outpatient Prescriptions: Diltiazem HCl (CARDIZEM) 120 MG Oral Tab Take 1 tablet by mouth daily. Disp: 90 tablet Rfl: 1 Estradiol (VAGIFEM) [address] vaginally. Use twice weekly Disp: Rfl: aspirin 81 MG Oral Tab Take 81 mg by mouth daily. Disp: Rfl: Ibuprofen 200 MG Oral Tab 1 TABLET EVERY 4 TO 6 HOURS NEEDED Disp: Rfl: Allergies: Penicillins Rash ROS: No easy bruising or bleeding problems. No excessive fatigue or sleep disturbance. All systems were reviewed and are negative except as described above. Physical: BP 116/70 Pulse 68 Ht 5' 6.5 (1.689 m) Wt 145 lb (65.772 kg) BMI 23.05 kg/m2 GENERAL: well developed, well nourished, in no apparent distress HEENT: sclerae anicteric NECK: no JVD, carotids 2+ with no bruits, no thyromegaly CARDIOVASCULAR: RRR, normal S1 and S2; no S3, no S4; no murmurs or rubs. PMI is non-displaced. RESPIRATORY: clear to auscultation and percussion bilaterally ABDOMEN: soft, non-tender, non-distended, no organomegaly EXTREMITIES: no cyanosis, clubbing or edema, distal pulses 2+ bilaterally NEURO: alert and oriented x 3, no focal defecits PSYCHIATRIC: affect normal SKIN: no rashes, no jaundice Data: GLUCOSE, SERUM (mg/dL) Date Date Value 07/25/2011 83 POTASSIUM, SERUM (mmol/L) Date Date Value 07/25/2011 5.0 BUN (mg/dL) Date Date Value 07/25/2011 13 CREATININE, SERUM (mg/dL) Date Date Value 07/25/2011 0.76 AST (SGOT) (IU/L) Date Date Value 07/25/2011 18 ALT (SGPT) (IU/L) Date Date Value 07/25/2011 15 No results found for this basename: tsh ECG: (personally reviewed): NSR TTE: EF 60%, mild MR Hospital records reviewed Impression: 1. Paroxysmal AF, which was symptomatic, s/p successful DCCV. CHADS2=0. No clear trigger; may have been triggered by severe emotional stress related to her work. No known recurrent. 2. Occ palpitations - likely due to PACs, which she has had in the past. Plan: ?? She was most recently rx'd a refill of short acting cardizem, which she has been taking once daily. ?? Will change rx to cardizem CD 120mg daily - explained rationale for long acting formulation ?? Ok to increase activity as tolerated ?? Notify me for worsening sx ?? F/u 6 mos, sooner prn. Pt endorsed understanding of/agreement with the above plan. N BUILDER documented in this encounter Plan of Treatment Upcoming Encounters Date Type Department Care Team (Late st Contact Info) Description 11/24/2024 1:00 PM ORGAN BUILDER Procedure Surgical Procedure Visit [phone] Titus Vieyra MD [address] [place] [address] [address] [place] [address] Scheduled Orders Name Type Priority Associated Diagnoses Orde r Schedule OFFICE/OUTPT VISIT,EST,LEVL III PROCEDURES Routine AF (atrial fibrillation) (HCC) Palpitations Ordered: 12/23/2013 documented as of this encounter Results * FOLLOW-UP, CARDIO ([facility]) (03/29/2014) Jl Blackmon MD REFERRAL [facility] documented in this encounter Visit Diagnoses Diagnosis AF (atrial fibrillation) (HCC)- Primary Atrial fibrillation Palpitations documented in this encounter Care Teams Bus And Trolley Inspecting Dispatcher Relationship Specialty Start Date End Date Jeison Orozco MD PCP - General 12/25/01 08/12/23 documented as of this encounter
--- OUTSIDE RECORDS SUMMARY | 2024-11-07 07:03 | XMS_ITS | Encounter Summary ---
Author Organization [facility] Address [address] [place] [address] Care Team Providers Care Remedial Masseur Name Role Phone Jeison Orozco MD Primary Care Provider Unav ailable Reason for Visit * Reason Onset Date Comments Hospital F/U 05/20/2013 Encounter Details Date Type Department Care Team (Late st Contact Info) Description 05/20/2013 Telephone Internal Medicine - [facility] [address] [facility] [address] [place], [place] [id number] Qian Mathur MD [address] [facility] [address] [place] [address] Hospital F/U Social History Tobacco Use Types [...] as of this encounter Progress Notes * Felix, Interface - 05/21/2013 8:17 AM CDT * Angie Vigil - 05/20/2013 3:57 PM CDT Pt wished to schedule her follow up next month due to work schedule. Future Appointments Date Time Provider Department Center 06/21/2013 9:00 AM Qian Mathur MD [facility] AT [facility] * Manfred Wynne - 05/20/2013 3:17 PM CDT Please schedule f/u appt with Dr HERNANDEZ in 2 weeks. * Judy Freeman - 05/20/2013 2:34 PM CDT Tonya Costello was discharged home on 05/19/13 after an inpatient stay at [facility]. The patient requires a follow-up appointment with their PCP and other Specialty Providers accordingtheir discharge instructions. Those appointments have not been scheduled, pls advise on fu. Additional follow up needed from MD Office to schedule appointment(s)? Yes This information has also been routed to the appropriate specialty department for additional appointment(s) as indicated on the discharge summary. Note: Referrals may be needed. The discharge summary was present in the hospital portal and will appear as a link below to the media tab within 2 hours. *Note: Patients may have called their physician office(s) to schedule their follow-up appointments after the creation of this phone encounter. Please review the patient's future appointments in [facility] before contacting them to schedule follow-up appointments. documented in this encounter Plan of Treatment Upcoming Encounters Date Type Department Care Team (Late st Contact Info) Description 11/24/2024 1:00 PM COMMUNICATIONS TECHNOLOGIST Procedure Surgical Procedure Visit [phone] Titus Vieyra MD [facility] [address] [place] [address] documented as of this encounter Visit Diagnoses Not on filedocumented in this encounter Care Teams Remedial Masseur Relationship Specialty Start Date End Date Jeison Orozco MD PCP - General 12/25/01 08/12/23 documented as of this encounter
--- OUTSIDE RECORDS SUMMARY | 2024-11-07 07:03 | XMS_ITS | Encounter Summary ---
Author Organization [facility] Address [address] [place] [address] Care Team Providers Care Spray I Painter Name Role Phone Jeison Orozco MD Primary Care Provider Unav ailable Encounter Details Date Type Department Care Team (Late st Contact Info) Description 08/03/2012 9:07 AM CDT - 08/03/2012 11:59 PM CDT Hospital Encounter [facility] [place] [address] [place] [address] Social History Tobacco Use Types [...] Sign Reading Time Taken Comments Blood Pressure 137/77 08/03/2012 10:50 AM CDT Pulse 89 08/03/2012 10:50 AM CDT Temperature 37.1 ??C (98.8 ??F) 08/03/2012 10:27 AM C DT Respiratory Rate 16 08/03/2012 10:50 AM CDT Oxygen Saturation - - Inhaled [...] by Does not apply route daily. 06/22/2013 CGO-QIh-SmXh-NaSulf-Na Asc-C (MOVIPREP) 100 G Oral Recon Soln [...] 02/25/2011 05/05/2018 documented as of this encounter OR Notes * OR PostOp [...] site at 40 cm. The patient and dedicated regional driver were informed of the endoscopic findings and was also given a copy of findings, postoperative instructions, and postoperative precautions. Titus Vieyra MD [facility] [place] [facility] * OR PreOp - Titus Vieyra [...] Outpatient Prescriptions on File Prior to Encounter: YBI-RUk-ViCj-NaSulf-Na Asc-C (MOVIPREP) 100 G Oral Recon Soln [...] A/p 1 colonoscopy today. Titus Vieyra MD [facility] [place] [facility] documented in this encounter Plan of Treatment Upcoming Encounters Date Type Department Care Team (Late st Contact Info) Description 11/24/2024 1:00 PM DOUBLE CORNER CUTTER Procedure Surgical Procedure Visit [phone] Titus Vieyra MD [address] [place] [address] [address] [place] [address] documented as of this encounter Procedures Procedure Name Priority Date/Time Associated Diagnosis Comments COLONOSCOPY, POSSIBLE BIOPSY, POSSIBLE POLYPECTOMY [id number] 08/03/2012 9:46 AM CDT Special screening for malignant neoplasms, colon Benign neoplasm of colon Diverticulosis of colon (without mention of hemorrhage) Other congenital anomalies of intestine Internal hemorrhoids without mention of complication COLONOSCOPY, POSSIBLE BIOPSY, POSSIBLE POLYPECTOMY 79209 08/03/2012 9:46 AM CDT Special screening for malignant neoplasms, colon Benign neoplasm of colon Diverticulosis of colon (without mention of hemorrhage) Other congenital anomalies of intestine Internal hemorrhoids without mention of complication COLONOSCOPY, POSSIBLE BIOPSY, POSSIBLE POLYPECTOMY 12145 08/03/2012 9:46 AM CDT Special screening for malignant neoplasms, colon Benign neoplasm of colon Diverticulosis of colon (without mention of hemorrhage) Other congenital anomalies of intestine Internal hemorrhoids without mention of complication documented in this encounter Visit Diagnoses Not on filedocumented in this encounter Care Teams Spray I Painter Relationship Specialty Start Date End Date Jeison Orozco MD PCP - General 12/25/01 08/12/23 documented as of this encounter
--- OUTSIDE RECORDS SUMMARY | 2024-11-07 07:03 | XMS_ITS | Encounter Summary ---
Author Organization [facility] Address [address] [place] [address] Care Team Providers Care Pharmacy Clerk Name Role Phone Jeison Orozco MD Primary Care Provider Unav ailable Encounter Details Date Type Department Care Team (Late st Contact Info) Description 01/11/2013 8:08 AM CDT - 01/11/2013 11:59 PM CDT Hospital Encounter [facility] [place] [address] [place] [address] Social History Tobacco Use Types [...] Sign Reading Time Taken Comments Blood Pressure 111/69 01/11/2013 8:48 AM CDT Pulse 64 01/11/2013 8:48 AM CDT Temperature 36.3 ??C (97.4 ??F) 01/11/2013 8:48 AM CD T Respiratory Rate 16 01/11/2013 8:48 AM CDT Oxygen Saturation - - Inhaled Oxygen Concentration - - Weight 67.6 kg (149 lb) 01/11/2013 8:23 AM CDT Height 167.6 cm (5' 6 ) 01/11/2013 8:23 AM CDT Body Mass Index 24.05 01/11/2013 8:23 AM CDT documented in this encounter Medications at Time of Discharge Medication Sig Dispensed Refills Start Date End Date Na Sulfate-K Sulfate-Mg Sulf (SUPREP BOWEL PREP) Oral Solution 1 kit equals 2 bottles, please call pt when script available for p/u. THX 2 Bottle 0 01/04/2013 06/22/2013 OLUX-E 0.05 % Apply Externally FoamIndications:Injury of sacrum Apply 1 Application topically 2 (two) times daily. 100 g 1 11/25/2012 06/22/2013 TURMERIC OR 1 Tab by Does not apply route daily. 06/22/2013 Multiple Vitamins-Minerals (ONE DAILY COMPLETE) Oral Tab Take 1 Tab by mouth daily. 06/22/2013 Ibuprofen 200 MG Oral TabIndications:Fatigue ,Back pain,Cough,History of foreign travel,Other, multiple, and unspecified sites, insect bite, nonvenomous, without mention of infection(919.4) 1 TABLET EVERY 4 TO 6 HOURS NEEDED 08/02/2017 ZOLPIDEM TARTRATE 5 MG OR TABS 1 TABLET AT BEDTIME 10 Tab 0 02/25/2011 05/05/2018 documented as of this encounter OR Notes * OR Surgeon - Titus Vieyra MD - 01/11/2013 8:54 AM CDT ENDOSCOPY OPERATIVE REPORT Patient Name: Tonya Costello Date of : 1960 Date of Procedure: 01/11/2013 Preoperative Diagnosis: History of polyps Postoperative Diagnosis: unremarkable tattoo in proximal sigmoid (previously 40 cm), new small polyp, hemorrhoids Procedure Performed: Flexible Sigmoidoscopy to the area of tattooing Anesthesia Given: None Endoscopist: Titus Vieyra MD Procedure: After the patient was interviewed and the procedure again discussed and questions addressed, the patient was brought to the GI Lab and monitoring of the B/P, pulse, and pulse oximetry was performed. The patient was then placed in the left lateral decubitus position. The patient was not sedated as per her request; continuous vital signs were monitored throughout the procedure. The Olympus video upper endoscope was inserted into the rectal after an unremarkable digital rectalexam. The endoscope was advanced to the area of tattooing without difficulty; upon insertion and withdrawl the mucosa was carefully examined and the preparation was good. The area of prior tattooing was noted in the proximal sigmoid. No obvious recurrent polyp. Several biopsies and photographs taken. A 3 mm polyp was seen in the mid sigmoid and was removed with the cold biopsy forceps and placed luke separate container The visualized mucosal pattern was unremarkable. At the anal verge the endoscope was retroverted and other than some internal hemorrhoids, no other abnormalities were indentified. The procedure was tolerated well and upon completion and throughtoutthe vital signs were stable. PLAN: Patient is to follow a high fiber, low fat diet. I will communicate results of the pathology with the patient. If the biopsies from the area of tattooing are okay, likely full colonoscopy fall 2014. She did well with the Suprep and can use this again. The patient was informed of the endoscopic findings and was also given a copy of findings, postoperative instructions, and postoperative precautions. Titus Vieyra MD [facility] [place] [facility] * OR PreOp - Titus Vieyra MD - 01/11/2013 8:48 AM CDT Tonya Costello presents for endoscopy. Reviewed prior colonscopy. Risks, benefits, alternatives, limitations to flex sig discussed. The risks and benefits of the procedure [...] Outpatient Prescriptions on File Prior to Encounter: OLUX-E 0.05 % Apply Externally Foam Apply 1 Application topically 2 (two) times daily. Disp: 100 g Rfl: 1 TURMERIC OR 1 Tab by Does not apply route daily. Disp: Rfl: Multiple Vitamins-Minerals (ONE DAILY COMPLETE) Oral Tab [...] TO SPLENIC FLEXURE; W/DIRECTED SUBMUCOSA INJECTION(S), ANY [id number]/8/2012 ROS: As above. No anne, visual/hearing changes, [...] soft, nt/nd. EXT: no edema A/p 1 flex sig today. Titus Vieyra MD [facility] [place] [facility] documented in this encounter Plan of Treatment Upcoming Encounters Date Type Department Care Team (Late st Contact Info) Description 11/24/2024 1:00 PM BIOMEDICAL ELECTRONICS TECHNICIAN Procedure Surgical Procedure Visit [phone] Titus Vieyra MD [address] [place] [address] [place] [address] documented as of this encounter Procedures Procedure Name Priority Date/Time Associated Diagnosis Comments FLEXIBLE SIGMOIDOSCOPY WITH BIOPSY, POLYPECTOMY 01/11/2013 8:30 AM CDT Benign neoplasm of colon Personal history of colonic polyps Internal hemorrhoids without mention of complication documented in this encounter Visit Diagnoses Not on filedocumented in this encounter Care Teams Pharmacy Clerk Relationship Specialty Start Date End Date Jeison Orozco MD PCP - General 12/25/01 08/12/23 documented as of this encounter
--- OUTSIDE RECORDS SUMMARY | 2024-11-07 07:03 | XMS_ITS | Encounter Summary ---
Author Organization [facility] Address [address] [place] [address] Care Team Providers Care Service Order Clerk Name Role Phone Jeison Orozco MD Primary Care Provider Unav ailable Encounter Details Date Type Department Care Team (Late st Contact Info) Description 01/11/2013 8:30 AM CDT - 01/11/2013 9:00 AM CDT Surgery [facility] [place] [address] [place] [address] Titus Vieyra MD [address] [place] [address] [address] [place] [address] FLEXIBLE SIGMOIDOSCOPY WITH BIOPSY, POLYPECTOMY Surgery Details Date/Time Status Location OR Service Patient Class Case Class Case Type Trauma Case? 01/11/2013 8:30 AM Posted [facility] OR Gastroenterology Outpatient Panel 1 Procedure LRB Anes Op Region Wound Class Comments FLEXIBLE SIGMOIDOSCOPY WITH BIOPSY, POLYPECTOMY N/A Conscious Sedation Clean Contaminated FLEXIBLE SIGMOIDOSCOPY, POSSIBLE BIOPSY, POSSIBLE POLYPECTOMY 50229 Surgeon Surgeon Role Service Panel Titus Vieyra MD Primary Gastroenterology 1 documented in [...] encounter Progress Notes * Generated, Interface - 01/12/2013 8:42 AM CDT documented in this encounter OR Notes * OR Surgeon [...] instructions, and postoperative precautions. Titus Vieyra MD [facility] * OR PreOp - Titus Vieyra [...] TO SPLENIC FLEXURE; W/DIRECTED SUBMUCOSA INJECTION(S), ANY [id number]/8/2012 ROS: As above. No anne, visual/hearing changes, [...] 1 flex sig today. Titus Vieyra MD [facility] documented in this encounter Plan of Treatment Upcoming Encounters Date Type Department Care Team (Late st Contact Info) Description 11/24/2024 1:00 PM INSURANCE VERIFICATION CLERK Procedure Surgical Procedure Visit [phone] Titus Vieyra MD [address] [place] [address] [place] [address] documented as of this encounter Procedures Procedure Name Priority Date/Time Associated Diagnosis Comments FLEXIBLE SIGMOIDOSCOPY WITH BIOPSY, POLYPECTOMY 01/11/2013 8:30 AM CDT Benign neoplasm of colon Personal history of colonic polyps Internal hemorrhoids without mention of complication documented in this encounter Visit Diagnoses Diagnosis Benign neoplasm of colon Personal history of colonic polyps Internal hemorrhoids without mention of complication documented in this encounter Care Teams Service Order Clerk Relationship Specialty Start Date End Date Jeison Orozco MD PCP - General 12/25/01 08/12/23 documented as of this encounter
--- OUTSIDE RECORDS SUMMARY | 2024-11-07 07:03 | XMS_ITS | Encounter Summary ---
Author Organization [facility] Address [address] [place] [address] Care Team Providers Care Residential Glazier Name Role Phone Jeison Orozco MD Primary Care Provider Unav ailable Reason for Visit * Reason Comments Headache Dizziness Encounter Details Date Type Department Care Team (Late st Contact Info) Description 07/29/2013 11:15 AM CDT Office Visit Internal Medicine - [facility] [address] [facility] [address] [place], [place] [id number] Qian Mathur MD [address] [facility] [address] [place] [address] URI (upper respiratory infection) (Primary Dx); Viral labyrinthitis Social History Tobacco Use Types Packs/Day Years Used Date Smoking Tobacco: Former Cigarettes Smokeless Tobacco: Never Tobacco Cessation:Counseling Given: Yes Comments:quit 21 yrs ago Alcohol Use Standard Drinks/Week Comments Yes 0 (1 standard drink = 0.6 oz pur e alcohol) socially Sex and Gender Information Value Date Recorded Sex Assigned at Not on file Gender Identity Female 07/03/2021 5:51 PM CDT Sexual Orientation Not on file documented as of this encounter Last Filed Vital Signs Vital Sign Reading Time Taken Comments Blood Pressure 116/74 07/29/2013 11:22 AM CDT Pulse 68 07/29/2013 11:22 AM CDT Temperature 36.7 ??C (98.1 ??F) 07/29/2013 11:22 AM C DT Respiratory Rate - - Oxygen Saturation 98% 07/29/2013 11:22 AM CDT Inhaled Oxygen Concentration - - Weight 68 kg (150 lb) 07/29/2013 11:22 AM CDT Height 168.3 cm (5' 6.25 ) 07/29/2013 11:22 AM C DT Body Mass Index 24.03 07/29/2013 11:22 AM CDT documented in this encounter Progress Notes * Qian Mathur MD - 07/29/2013 11:29 AM CDT Patient presents with: Headache Dizziness Pt is c/o sinus/nasal congestion for 1 d Feels dizzy -feels like room spinning. +nausea. No vomiting Ear pain? n Sick contacts?y Fever?n Cough? n Productive? n/a SOB? N Hx asthma? N Remedies tried at home?OTC decongestant ROS as above, otherwise reviewed across 10 categories and negative HISTORY: Past Medical History Diagnosis Date ??? AF (atrial fibrillation) 06/21/2013 Past Surgical History REMOVAL OF COCCYX OTHER SURGICAL HISTORY Comment facial plastic surgery COLONOSCOPY,BIOPSY 08/03/2012 Comment small cecal and ascending colon polps. Also, 13 mm flat polyp at about 40 cm from anus was tattooed was adenoma. Joaquin-colonic diverticulosis COLONOSCOPY,REMKong DONALDSON,SNARE 08/03/2012 COLONOSCPY, FLEXIBLE, PROXIMAL TO SPLENIC FLEXURE; W/DIRECTED SUBMUCOSA INJECTION(S), ANY [id number]/8/2012 FLEX SIG 12/2012 Comment 3 mm sigmoid polyp was adenoma. No recurrent polyp at tattoo site at 40 cm SIGMOIDOSCOPY,BIOPSY 01/11/2013 Comment Procedure: FLEXIBLE SIGMOIDOSCOPY WITH BIOPSY, POLYPECTOMY; Surgeon: Titus Vieyra MD;Location: [facility] No family history on file. Smoking Status: Former Smoker Packs/Day: Years: 10 Smokeless Status: Never Used Comment: quit 21 yrs ago Alcohol Use: Yes Comment: socially Current Outpatient Prescriptions: Estradiol (VAGIFEM) [address] vaginally. Use twice weekly Disp: Rfl: aspirin 325 MG Oral Tab Take 325 mg by mouth daily. Disp: Rfl: Diltiazem HCl (CARDIZEM OR) Disp: Rfl: Ibuprofen 200 MG Oral Tab 1 TABLET EVERY 4 TO 6 HOURS NEEDED Disp: Rfl: Penicillins Rash PE Blood pressure 116/74, pulse 68, temperature 98.1 ??F (36.7 ??C), temperature source Oral, height 5' 6.25 , weight 150 lb, SpO2 98.00%. Genl: NAD HEENT: posterior pharynx clear ears TM normal b/l nares congested Neck: no LAD Lungs CTA b/l Impression/Plan: Acute viral URI/labyrhinthitis 1. Meclizine as ordered. Discussed natural course. 2. OTC mucinex and nasal saline 3. Rest, push fluids, OTC tylenol/ibuprofen as needed. Call if symptoms persist, change, or worsen 4. Monitor temperature. Call if > 101. See orders All of pt's questions were answered today documented in this encounter Plan of Treatment Upcoming Encounters Date Type Department Care Team (Late st Contact Info) Description 11/24/2024 1:00 PM PUNCH MACHINE HAND Procedure Surgical Procedure Visit [phone] Titus Vieyra MD [address] [facility] [address] [place] [address] Scheduled Orders Name Type Priority Associated Diagnoses Orde r Schedule OFFICE/OUTPT VISIT,EST,LEVL III PROCEDURES Routine URI (upper respiratory infection) Viral labyrinthitis Ordered: 07/29/2013 documented as of this encounter Visit Diagnoses Diagnosis URI (upper respiratory infection)- Primary Acute upper respiratory infections of unspecified site Viral labyrinthitis documented in this encounter Care Teams Residential Glazier Relationship Specialty Start Date End Date Jeison Orozco MD PCP - General 12/25/01 08/12/23 documented as of this encounter
--- OUTSIDE RECORDS SUMMARY | 2024-11-07 07:03 | XMS_ITS | Encounter Summary ---
Author Organization [facility] [place] Address [address] [place] [address] Care Team Providers Care It Associate Name Role Phone Jeison Orozco MD Primary Care Provider Unav ailable Reason for Visit * Reason Comments Suture Removal right foot Encounter Details Date Type Department Care Team (Late st Contact Info) Description 06/17/2013 6:20 PM CDT Office Visit [facility] - [address] [place], [place] [address] Cecilia Lozada MD [address] [facility] [address] [place], [place] [address] Visit for suture removal (Primary Dx) Social History Tobacco Use Types [...] Pressure - - Pulse - - Temperature 36.9 ??C (98.5 ??F) 06/17/2013 6:26 PM CD T Respiratory Rate - - Oxygen Saturation - - Inhaled Oxygen Concentration - - Weight - - Height - - Body Mass Index - - documented in this encounter Progress Notes * Cecilia Lozada MD - 06/17/2013 6:56 PM CDT History: No history of fever or other problems related to the wound per patient. Exam: Wound shows no sign of infection. No swelling, or erythema noted. Scant serous drainage with macerated wound edges. Sutures removed x 3. Incomplete wound healing of epidermis. Steri strips placed. Diagnosis: Visit for suture removal (primary encounter diagnosis) Assessment & Plan: Patient advised to continue current care. Advised to schedule a follow up with [facility] as needed. Advised to return [facility] or follow up with primary care provider if any feveror signs of infection develops. documented in this encounter Plan of Treatment Upcoming Encounters Date Type Department Care Team (Late st Contact Info) Description 11/24/2024 1:00 PM ONCOLOGY COORDINATOR Procedure Surgical Procedure Visit [phone] Titus Vieyra MD [address] [place] [address] [address] [place] [address] Scheduled Orders Name Type Priority Associated Diagnoses Orde r Schedule OFFICE/OUTPT VISIT,EST,LEVL II PROCEDURES Routine Visit for suture removal Ordered: 06/17/2013 documented as of this encounter Visit Diagnoses Diagnosis Visit for suture removal- Primary Encounter for removal of sutures documented in this encounter Care Teams It Associate Relationship Specialty Start Date End Date Jeison Orozco MD PCP - General 12/25/01 08/12/23 documented as of this encounter
--- OUTSIDE RECORDS SUMMARY | 2024-11-07 07:03 | XMS_ITS | Encounter Summary ---
Author Organization [facility] Address [address] [place] [address] Care Team Providers Care Pigment Supplier Name Role Phone Jeison Orozco MD Primary Care Provider Unav ailable Reason for Visit * Reason Comments Hospital F/U was at [facility] on April Checkup on the foot stitches Encounter Details Date Type Department Care Team (Late st Contact Info) Description 06/21/2013 9:00 AM CDT Office Visit Internal Medicine - [facility] [address] [place], [place] [id number] Qian Mathur MD [address] [place], [place] [id number] AF (atrial fibrillation) (HCC) (Primary Dx); Toe injury Social History Tobacco Use Types Packs/Day Years [...] Reading Time Taken Comments Blood Pressure 124/72 06/21/2013 8:51 AM CDT Pulse 62 06/21/2013 8:51 AM CDT Temperature 37.1 ??C (98.7 ??F) 06/21/2013 8:51 AM CD T Respiratory Rate - - Oxygen Saturation 98% 06/21/2013 8:51 AM CDT Inhaled Oxygen Concentration - - Weight 69.4 kg (153 lb) 06/21/2013 8:51 AM CDT Height 168.3 cm (5' 6.25 ) 06/21/2013 8:51 AM CD T Body Mass Index 24.51 06/21/2013 8:51 AM CDT documented in this encounter Progress Notes * Qian Mathur MD - 06/21/2013 9:05 AM CDT Tonya Costello is a 52 year old female. Patient presents with: Hospital F/U - was at [facility] on April Checkup - on the foot stitches Admit at [facility] 04/2013 w/ AF. Has past hx AF. Seen by cardiol Dr Blackmon Still occ feels heart racing but HR < 100. On cardizem & eliquis. Cut R 1st toe over MTP joint - knife fell on it./. [facility]. Had to go on doxy for infection. Still feels like something is in there . +tender ROS OUTLINED ABOVE. OTHERWISE REVIEWED ACROSS 10 CATEGORIES AND NEGATIVE HISTORY: Past Medical History Diagnosis Date ??? AF (atrial fibrillation) 06/21/2013 Past Surgical History REMOVAL OF COCCYX OTHER SURGICAL HISTORY Comment facial plastic surgery COLONOSCOPY,BIOPSY 08/03/2012 Comment small cecal and ascending colon polps. Also, 13 mm flat polyp at about 40 cm from anus was tattooed was adenoma. Joaquin-colonic diverticulosis COLONOSCOPY,REMV MENDOZA,SNARE 08/03/2012 COLONOSCPY, FLEXIBLE, PROXIMAL TO SPLENIC FLEXURE; W/DIRECTED SUBMUCOSA INJECTION(S), ANY [id number]/8/2012 FLEX SIG 12/2012 Comment 3 mm sigmoid polyp was adenoma. No recurrent polyp at tattoo site at 40 cm SIGMOIDOSCOPY,BIOPSY 01/11/2013 Comment Procedure: FLEXIBLE SIGMOIDOSCOPY WITH BIOPSY, POLYPECTOMY; Surgeon: Titus Vieyra MD;Location: [facility] No family history on file. Smoking Status: Former Smoker Packs/Day: Years: 10 Smokeless Status: Never Used Comment: quit 21 yrs ago Alcohol Use: Yes Comment: socially Current Outpatient Prescriptions: Diltiazem HCl (CARDIZEM OR) Disp: Rfl: Na Sulfate-K Sulfate-Mg Sulf (SUPREP BOWEL PREP) Oral Solution 1 kit equals 2 bottles, please call pt when script available for p/u. THX Disp: 2 Bottle Rfl: 0 OLUX-E 0.05 % Apply Externally Foam Apply 1 Application topically 2 (two) times daily. Disp: 100 g Rfl: 1 TURMERIC OR 1 Tab by Does not apply route daily. Disp: Rfl: Multiple Vitamins-Minerals (ONE DAILY COMPLETE) Oral Tab Take 1 Tab by mouth daily. Disp: Rfl: Ibuprofen 200 MG Oral Tab 1 TABLET EVERY 4 TO 6 HOURS NEEDED Disp: Rfl: ALLERGIES: Penicillins Rash Immunization History Administered Date(s) Administered HEP A/HEP B Combined 02/25/2011 03/29/2011 10/15/2011 TDAP 02/25/2011 PE Blood pressure 124/72, pulse 62, temperature 98.7 ??F (37.1 ??C), temperature source Oral, height 5' 6.25 , weight 153 lb, SpO2 98.00%. Genl: NAD HEENT: posterior pharynx clear ears TM normal b/l nares nl b/l Neck: no LAD, no thyromegaly Lungs CTA b/l CV RRR Abd Soft NTND Extr: 1 cm healing lac R 1st MTP. slt tender Neuro: no focal deficits Skin: no rashes ASSESSMENT AND PLAN: 1. AF - f/u cardiol Cont current management. 2. Toe injury - Xray ordered See orders After visit summary given to pt The patient indicates understanding of these issues and agrees to the plan. All of pt's ?s were answered today documented in this encounter Plan of Treatment Upcoming Encounters Date Type Department Care Team (Late st Contact Info) Description 11/24/2024 1:00 PM MINE CAPTAIN Procedure Surgical Procedure Visit [phone] Titus Vieyra MD [address] [place] [address] [address] [place] [address] Scheduled Orders Name Type Priority Associated Diagnoses Orde r Schedule OFFICE/OUTPT VISIT,EST,LEVL III PROCEDURES Routine AF (atrial fibrillation) (HCC) Toe injury Ordered: 06/21/2013 documented as of this encounter Results * XR TOE(S) (MIN 2 VIEWS), RIGHT 1ST ([id number]) (06/21/2013 9:30 AM CDT) Anatomical Region Laterality Modality Lower body Right Computed Radiogr aphy 06/21/2013 9:45 AM CDT Impressions 06/21/2013 9:57 AM CDT IMPRESSION: Unremarkable x-rays of the right great toe. Narrative 06/21/2013 9:57 AM CDT X-RAY RIGHT GREAT TOE, THREE VIEWS CLINICAL INDICATION: Trauma. FINDINGS: No evidence of fracture or dislocation. All the bones and joint spaces appear intact. Procedure Note Heather Jordan MD - 06/21/2013 X-RAY RIGHT GREAT TOE, THREE VIEWS CLINICAL INDICATION: Trauma. FINDINGS: No evidence of fracture or dislocation. All the bones and jointspaces appear intact. ===== IMPRESSION: Unremarkable x-rays of the right great toe. Qian Mathur MD RIS XRAY documented in this encounter Visit Diagnoses Diagnosis AF (atrial fibrillation) (HCC)- Primary Atrial fibrillation Toe injury Injury, other and unspecified, knee, leg, ankle, and foot documented in this encounter Care Teams Pigment Supplier Relationship Specialty Start Date End Date Jeison Orozco MD PCP - General 12/25/01 08/12/23 documented as of this encounter
--- OUTSIDE RECORDS SUMMARY | 2024-11-07 07:03 | XMS_ITS | Encounter Summary ---
Author Organization [facility] Address [address] [place] [address] Care Team Providers Care Sign Designer Name Role Phone Jeison Orozco MD Primary Care Provider Unav ailable Reason for Visit * Reason Onset Date Comments Hospital F/U 05/20/2013 Encounter Details Date Type Department Care Team (Late st Contact Info) Description 05/20/2013 Telephone Cardiology - [facility] [address] [facility] [facility] [place] [address] Jl Blackmon MD [address] [place] [address] Hospital F/U Social History Tobacco Use Types [...] of this encounter Progress Notes * Stephanie Mccabe - 05/28/2013 11:03 AM CDT Pt scheduled a follow up appointment with Dr Blackmon on Jun 22 2013 at 1:30 This message is complete * Cecilia Lubin - 05/28/2013 10:31 AM CDT Routed to [place] to call and schedule appointment. * Jl Blackmon MD - 05/25/2013 11:49 AM CDT She should f/u with me within 2-4 weeks. * EDF Renewable EnergyTaylor - 05/21/2013 8:12 AM CDT * Judy Freeman - 05/20/2013 2:34 PM CDT Tonya Costello was discharged home on 05/19/13 after an inpatient stay at [facility] The patient requires a follow-up appointment with their PCP and other Specialty Providers accordingtheir discharge instructions. Those appointments have not been scheduled. Please contact the patient to schedule appropriate specialty appointment(s). This information has also been routed to the appropriate PCP office for additional appointment(s) as indicated on the [...] Please review the patient's future appointments in [facility] before contacting them to schedule follow-up appointments. documented in this encounter Plan of Treatment Upcoming Encounters Date Type Department Care Team (Late st Contact Info) Description 11/24/2024 1:00 PM ROD MILL OPERATOR Procedure Surgical Procedure Visit [phone] Titus Vieyra MD [address] [place] [address] [address] [place] [address] documented as of this encounter Visit Diagnoses Not on filedocumented in this encounter Care Teams Sign Designer Relationship Specialty Start Date End Date Jeison Orozco MD PCP - General 12/25/01 08/12/23 documented as of this encounter
--- OUTSIDE RECORDS SUMMARY | 2024-11-07 07:03 | XMS_ITS | Encounter Summary ---
Author Organization [facility] Address [address] [place] [address] Care Team Providers Care Can Washer Name Role Phone Jeison Orozco MD Primary Care Provider Unav ailable Reason for Referral * E/M Services (Routine) - Closed Specialty Diagnoses / Procedures Referred By Delmi zee Referred To Contact Surgery, Orthopedic Diagnoses Coccygeal fracture (HCC) Qian Mathur MD [address] [facility] [address] [place] [address] Referral ID Status Reason Start Date Expiration Date Visits Re quested Visits Authorized [id number] Closed 11/26/2012 11/26/2013 6 6 Scheduling Instructions THIS IS NOT A REFERRAL Your physician has referred you to the Orthopaedic and Sports Medicine Department of [facility]. Please call [phone] to schedule your appointment at one of the listed locations. Physician Location Date ___ Time ___ Jeannie Pham [facility] For more information about [facility] physicians and locations, visit [email or web address]. Your insurance may require a referral for these services. If a referral is required, the [facility] Utilization Management staff will obtain all necessary authorizations prior to your visit. If you have any questions about this process, you can contact [phone]. AIN STITCHER Reason for Visit * Reason Onset Date Comments Test Results 11/26/2012 Encounter Details Date Type Department Care Team (Late st Contact Info) Description 11/26/2012 Telephone Internal Medicine - [facility] [address] [facility] [address] [place], [place] [phone] Qian Mathur MD [address] [facility] [address] [place] [address] Test Results Social History Tobacco [...] of this encounter Progress Notes * Beverly Cohen - 01/02/2013 8:22 AM CST SPECIALTY ORDER TRACKING: ORTHO Reviewed chart: Consult not completed in EMR. Reviewed Media: Documentation not scanned to Media from outside vendor. Reviewed past/future appointments: No appt completed/scheduled.. Routine Letter mailed to patient per NCQA/ISMIE Guidelines. Physician indicated this is to be tracked as a routine order. AIN STITCHER * Meera Ulloa - 11/27/2012 9:43 AM CST Patient called back on RN results line. Called patient back - gave info and phone number for ortho. Patient to call back if unable to schedule in the next 2 weeks. Patient also requested that OLUX-E foam be called into [facility] [place] in [phone] instead of [facility] as cost too much at [facility]. RX called into [facility] in . AIN STITCHER * Manfred Wynne - 11/26/2012 11:27 AM CST Left message for patient to return call. AIN STITCHER * Qian Mathur MD - 11/26/2012 9:59 AM CST Please call pt. Notify +small fx of tailbone (coccyx) seen. I'd like her to follow up in ortho in the next couple of wks Pain control as we discussed at appt Call if needs stronger pain rx Donut pillow Order placed. Please call pt to arrange appt AIN STITCHER documented in this encounter Plan of Treatment Upcoming Encounters Date Type Department Care Team (Late st Contact Info) Description 11/24/2024 1:00 PM CURTAIN STITCHER Procedure Surgical Procedure Visit [phone] Titus Vieyra MD [address] [place] [address] [address] [place] [address] Scheduled Referrals Name Type Priority Associated Diagnoses Orde r Schedule EVALUATE & TREAT, ORTHO ([facility]G) Referral Routine Coccygeal fracture (HCC) Ordered: 11/26/2012 documented as of this encounter Visit Diagnoses Diagnosis Coccygeal fracture (HCC)- Primary Closed fracture of sacrum and coccyx without mention of spinal cord injury documented in this encounter Care Teams Can Washer Relationship Specialty Start Date End Date Jeison Orozco MD PCP - General 12/25/01 08/12/23 documented as of this encounter
--- OUTSIDE RECORDS SUMMARY | 2024-11-07 07:03 | XMS_ITS | Encounter Summary ---
Author Organization [facility] Address [address] [place] [address] Care Team Providers Care Therapy Aide Name Role Phone Jeison Orozco MD Primary Care Provider Unav ailable Encounter Details Date Type Department Care Team (Late Contact Info) Description 09/23/2012 Telephone Gastoenterology - [facility] [place] [address] [place] [address] Titus Vieyra MD [address] [place] [address] Social History Tobacco Use Types [...] (Late Contact Info) Description 11/24/2024 1:00 PM GLUELINE WORKER Procedure Surgical Procedure Visit [phone] Titus Vieyra MD [address] [place] [address] documented as of this encounter Visit Diagnoses Not on filedocumented in this encounter Care Teams Therapy Aide Relationship Specialty Start Date End Date Jeison Orozco MD PCP - General 12/25/01 08/12/23 documented as of this encounter
--- OUTSIDE RECORDS SUMMARY | 2024-11-07 07:03 | XMS_ITS | Encounter Summary ---
Author Organization [facility] Address [address] [place] [address] Care Team Providers Care Storage Management Architect Name Role Phone Jeison Orozco MD Primary Care Provider Unav ailable Reason for Visit * Reason Comments Other Encounter Details Date Type Department Care Team (Late st Contact Info) Description 01/04/2013 Telephone Gastroenterology - [facility] [place] [address] [facility] [address] [place] [address] Titus Vieyra MD [address] [place] [address] [address] [place], [place] [id number] Social History Tobacco Use Types Packs/Day Years [...] as of this encounter Progress Notes * Ashley Terry RN - 01/04/2013 2:25 PM CDT Prep script escribed to Joni as requested. * Ashley Terry RN - 01/04/2013 2:23 PM CDT Message copied by ASHLEY TERRY on FriJan 04, 2013 2:23 PM ------ Message from: JEANNIE BURGESS Created: FriJan 04, 2013 1:55 PM Contact: Azalia james Please escribe in Suprep for patient for procedure on Friday documented in this encounter Plan of Treatment Upcoming Encounters Date Type Department Care Team (Late st Contact Info) Description 11/24/2024 1:00 PM SUSPECT ARTIST SUPERVISOR Procedure Surgical Procedure Visit [phone] Titus Vieyra MD [address] [place] [address] [place] [address] documented as of this encounter Visit Diagnoses Not on filedocumented in this encounter Care Teams Storage Management Architect Relationship Specialty Start Date End Date Jeison Orozco MD PCP - General 12/25/01 08/12/23 documented as of this encounter
--- OUTSIDE RECORDS SUMMARY | 2024-11-07 07:03 | XMS_ITS | Encounter Summary ---
Author Organization [facility] Address [address] [place] [address] Care Team Providers Care Medical Terminologist Name Role Phone Jeison Orozco MD Primary Care Provider Unav ailable Encounter Details Date Type Department Care Team (Late st Contact Info) Description 07/28/2012 9:00 AM CDT Nurse Only Gastoenterology - [facility] [place] [address] [place] [address] Charge Entered Social History Tobacco [...] as of this encounter Progress Notes * Greg ALEAH Prakash - 07/28/2012 9:02 AM CDT PROCEDURES TELEPHONE CONSULT CHIEF COMPLAINT CRC screening 07/28/2012' Tonya Costello [id number] (home) Provider Titus Vieyra MD Conducted by: Brandy Lelandconnie 51 year old 1960 female Height 5 ft 6 in Weight 152 lbs BMI 24.5 O Vijay Mathur MD Latex Allergy No Open Access Questionnaire: Have you had 3 or more abdominal surgeries? No Do you have a pacemaker or internal defibrillator ? No Have had stents placed within the past year? No Do you have difficulty with sedation? No Over the last 18 months have you used narcotics or prescription pain medication? No Do you use oxygen? No Do you suffer from chest pain or shortness of breath? No Have you ever had a stroke or TIA No Do you have any chronic kidney issues or on dialysis? No Do you suffer from any type of liver disease? No Do you suffer from rectal bleeding , anemia, constipation, diarrhea, abdominal pain, Crohn's disease, colitis, Ulcerative colitis , celiac disease, diverticulitis, chronic heartburn, unintentional weight loss or change in bowel habits or chronic infections ? Yes constipation; declined appt to discuss prior to colonoscopy Are you currently taking any anticoagulant/ antiplatelet medication? No Tonya Costello GI History Colonocopy/Year No Upper Endoscopy /Year No Allergies: Penicillins Rash Medications: Current Outpatient Prescriptions: Azithromycin 250 MG Oral Tab Sinus infections 2 po today, then 1 po daily Disp: 6 Tab Rfl: 0 Multiple Vitamins-Minerals (ONE DAILY COMPLETE) Oral Tab Take 1 Tab by mouth daily. Disp: Rfl: Ibuprofen 200 MG Oral Tab 1 TABLET EVERY 4 TO 6 HOURS NEEDED Disp: Rfl: Tumeric pill, once daily, for joint inflammation HISTORY: No past medical history on file. Past Surgical History REMOVAL OF COCCYX OTHER SURGICAL HISTORY Comment facial plastic surgery No family history on file. Smoking Status: Former Smoker Packs/Day: Years: 10 Smokeless Status: Never Used Comment: quit 21 yrs ago Alcohol Use: Yes Comment: socially Review of Systems: Thyroid problems No Chronic Kidney issues No Immune disorders No Overall General Health Good Yes, Hearing aides No CV issues No Anxiety or depression No Rash/Lesions No Prep issues Neuro issues No COPD/Asthma No STAR No HPI as reported by the patient: Unintentional weight loss No Abdominal Pain No Change in bowel habits No Blood in stool No Anemia No Heartburn No Indigestion No Difficulty swallowing No Other Social History: ASA/NSAID Yes, Ibuprofen PRN Transfusions No Is there anything else that we need to know that would impact your procedure? No Additional information regarding patient: If you are taking Aspirin or Plavix please contact your Primary Care Physician or Electronics Engineer for temporary discontinuance of the medication prior to your procedure. You must call the Gastroenterology office no later than 4 days before your scheduled procedure withyour physician's recommendation. Surgery Schedule Prep information reviewed and mailed Date: Friday08/03/2012 Brochure to patient: Procedure Time: 10:00 AM Movi Location: [facility] Other: Low residue diet sheet sent. Emailed to pt at [email or web address] documented in this encounter Plan of Treatment Upcoming Encounters Date Type Department Care Team (Late st Contact Info) Description 11/24/2024 1:00 PM AUTOMATION ENGINEERING MANAGER Procedure Surgical Procedure Visit [phone] Titus Vieyra MD [address] [place] [address] [address] [place] [address] Scheduled Orders Name Type Priority Associated Diagnoses Orde r Schedule UNLISTED E/M SERVICE PROCEDURES Routine Special screening for malignant neoplasms, colon Ordered: 07/28/2012 documented as of this encounter Visit Diagnoses Diagnosis Special screening for malignant neoplasms, colon- Primary documented in this encounter Care Teams Medical Terminologist Relationship Specialty Start Date End Date Jeison Orozco MD PCP - General 12/25/01 08/12/23 documented as of this encounter
--- OUTSIDE RECORDS SUMMARY | 2024-11-07 07:03 | XMS_ITS | Encounter Summary ---
Author Organization [facility] Address [address] [place] [address] Care Team Providers Care Epoxy Specialist Name Role Phone Jeison Orozco MD Primary Care Provider Unav ailable Reason for Visit * Reason Onset Date Comments Path 08/10/2012 Encounter Details Date Type Department Care Team (Late st Contact Info) Description 08/10/2012 Telephone Gastroenterology - [facility] [address] [facility] [address] [place], [place] [id number] Titus Vieyra MD [address] [place] [address] [address] [place], [place] [id number] Path Social History Tobacco Use Types Packs/Day [...] Progress Notes * Titus Vieyra MD - 08/10/2012 3:13 PM CDT Screening colonoscopy 08/03/12. 3 mm cecal and 8 mm ascending polyp removed but on path only vegetable debris recovered. 13 mm flatpolyp at about 40 cm from anus was tattooed and removed and was adenoma. Joaquin-colonic diverticulosis I called and discussed the results and recommendations with Tonya Costello and they were agreeable to the following. --3 year full colonoscopy --3-6 month flex sig. She wants sedation and would use full prep to ensure I can eval the tattooingsite. She did not like moviprep, discussed options, she wants to try suprep. Titus Vieyra MD [facility] Gastroenterology CC: Dr Mathur documented in this encounter Plan of Treatment Upcoming Encounters Date Type Department Care Team (Late st Contact Info) Description 11/24/2024 1:00 PM INFORMATICIST Procedure Surgical Procedure Visit [phone] Titus Vieyra MD [address] [place] [address] [address] [place] [address] documented as of this encounter Visit Diagnoses Not on filedocumented in this encounter Care Teams Epoxy Specialist Relationship Specialty Start Date End Date Jeison Orozco MD PCP - General 12/25/01 08/12/23 documented as of this encounter
--- OUTSIDE RECORDS SUMMARY | 2024-11-07 07:03 | XMS_ITS | Encounter Summary ---
Author Organization [facility] Address [address] [place] [address] Care Team Providers Care Medical Service Representative Name Role Phone Jeison Orozco MD Primary Care Provider Unav ailable Reason for Visit * Reason Onset Date Comments Refill Request 11/16/2012 Encounter Details Date Type Department Care Team ([facility] st Contact Info) Description 11/16/2012 Refill Dermatology - [facility] [address] [facility] [address] [place] [address] Niki Soto MD [address] [facility] [address] [place] [address] Refill Request Social History Tobacco Use Types [...] as of this encounter Progress Notes * Carla Hines - 11/16/2012 2:57 PM CST Patient called requesting refill for Olux foam, Refill denied LUC[place] 02/2011. Patient states she will call back to set an appointment. WAY TRACK PLANT OPERATOR documented in this encounter Plan of Treatment Upcoming Encounters Date Type Department Care Team (Late st Contact Info) Description 11/24/2024 1:00 PM RAILWAY TRACK PLANT OPERATOR Procedure Surgical Procedure Visit [phone] Titus Vieyra MD [address] [place] [address] [address] [place] [address] documented as of this encounter Visit Diagnoses Not on filedocumented in this encounter Care Teams Medical Service Representative Relationship Specialty Start Date End Date Jeison Orozco MD PCP - General 12/25/01 08/12/23 documented as of this encounter
--- OUTSIDE RECORDS SUMMARY | 2024-11-07 07:03 | XMS_ITS | Encounter Summary ---
Author Organization [facility] Address [address] [place] [address] Care Team Providers Care Starbucks Barista Name Role Phone Jeison Orozco MD Primary Care Provider Unav ailable Reason for Visit * Reason Comments Tinnitus * Tests (Routine) - Closed Specialty Diagnoses / Procedures Referred By Delmi zee Referred To Contact Otolaryngology Diagnoses Unspecified hearing loss Caitlin Hearn MD [address] [address] Referral ID Status Reason Start Date Expiration Date Visits Re quested Visits Authorized [id number] Closed 10/25/2013 01/23/2014 1 1 Encounter Details Date Type Department Care Team (Late st Contact Info) Description 10/25/2013 2:00 PM SAWDUST DRIER Office Visit Otolaryngology - [place] Neumann [address] [facility] [address] [place] [address] Amanda Hawthorne MS, CCC-A [address] [facility] [place] [address] Sensorineural hearing loss, bilateral (Primary Dx); Subjective tinnitus Social History Tobacco Use Types Packs/Day Years [...] encounter Progress Notes * Generated, Interface - 11/08/2013 12:01 PM CST UST DRIER * Amanda Hawthorne MS, CCC-A - 10/25/2013 2:17 PM CST HISTORY: Tonya Costello, age [age] years old, was seen today for hearing assessment as requested by Dr. Caitlin Hearn, Deputy Commonwealth'S Attorney, secondary to complaints of bilateral tinnitus. See ENT ROS intake form for a detailed history. RESULTS: An otoscopic examination revealed patent ear canals with visualization of the tympanic membranes for both ears. Tympanograms were consistent with normal pressure and compliance, bilaterally.Pure tone air and bone conduction testing was consistent with normal hearing sensitivity 250-4000Hz, sloping to a mild hearing loss at 8000Hz, bilaterally. A speech interactive developer threshold (SRT) was obtained at 10dB HL in the right ear and at 10dB HL in the left ear. A word recognition score of 100% correct for both ears was obtained when W-22 words were presented at a 30dB SL re: SRT. RECOMMENDATIONS: 1. Follow-up as recommended by Dr. Hearn. 2. Annual monitoring of hearing loss, sooner with perceived changes in hearing sensitivity or tinnitus, or with the onset of new symptoms. 3. Factors known to aggravate tinnitus perception including caffeine, sodium, stress, fatigue and acetaminophen use were discussed with Ms. Costello today as well as coping techniques for dealing withtinnitus annoyance. Amanda Hawthorne M.S. CCC/A Clinical Tariff Clerk UST DRIER documented in this encounter Plan of Treatment Upcoming Encounters Date Type Department Care Team (Late st Contact Info) Description 11/24/2024 1:00 PM SAWDUST DRIER Procedure Surgical Procedure Visit [phone] Titus Vieyra MD [address] [place] [address] [address] [place] [address] Scheduled Orders Name Type Priority Associated Diagnoses Orde r Schedule TYMPANOMETRY PROCEDURES Routine Sensorineural hearing loss, bilateral Subjective tinnitus Ordered: 10/25/2013 COMPREHENSIVE HEARING TEST PROCEDURES Routine Sensorineural hearing loss, bilateral Subjective tinnitus Ordered: 10/25/2013 documented as of this encounter Procedures Procedure Name Priority Date/Time Associated Diagnosis Comments AUDIOLOGICAL DIAGNOSTIC TESTING (DULY) Routine 10/25/2013 Unspecified hearing loss documented in this encounter Visit Diagnoses Diagnosis Sensorineural hearing loss, bilateral- Primary Subjective tinnitus documented in this encounter Care Teams Starbucks Barista Relationship Specialty Start Date End Date Jeison Orozco MD PCP - General 12/25/01 08/12/23 documented as of this encounter
--- OUTSIDE RECORDS SUMMARY | 2024-11-07 07:03 | XMS_ITS | Encounter Summary ---
Author Organization [facility] Address [address] [place] [address] Care Team Providers Care Deicer Inspector Pneumatic Name Role Phone Jeison Orozco MD Primary Care Provider Unav ailable Reason for Visit * Reason Comments Laceration dropped a knife on r ight foot, on blood thinner elequis Encounter Details Date Type Department Care Team (Late st Contact Info) Description 06/07/2013 11:00 PM CDT Office Visit [facility] [place] [address] [facility] [address] [place], [place] [address] Cecilia Lozada MD [address] [place], [place] [id number] Foot laceration (Primary Dx) Social History Tobacco Use Types [...] Sign Reading Time Taken Comments Blood Pressure 124/78 06/07/2013 8:24 PM CDT Pulse 58 06/07/2013 8:24 PM CDT Temperature - - Respiratory Rate 18 06/07/2013 8:24 PM CDT Oxygen Saturation 97% 06/07/2013 8:24 PM CDT Inhaled Oxygen Concentration - - Weight 68 kg (150 lb) 06/07/2013 8:24 PM CDT Height - - Body Mass Index 24.21 01/11/2013 8:23 AM CDT documented in this encounter Patient Instructions * Patient Instructions* Cecilia Lozada MD - 06/07/2013 9:06 PM CDT Diagnosis : Foot laceration (primary encounter diagnosis) Diagnosis made at the [facility] are typically made on a provisional basis. Medications Prescribed: No prescriptions requested or ordered in this encounter Please follow up with the physician recommended within 2 days. Sutures out in 10 days. Check the wound twice a day [...] does not improve as expected, call the [facility] at [phone] ([phone]). If you are experiencing a condition that is life-threatening, please call 911. documented in this encounter Progress Notes * Taylor Washington - 06/14/2013 1:30 PM CDT * Cecilia Lozada MD - 06/07/2013 8:57 PM CDT Tonya Costello is a 52 year old female.with a chief complaint of Laceration . History of Present Illness: Duration: onset of injury :tonight. Context (mechanism):dropped a knife and it hit her foot. Location: right foot on top of toe. Severity: actively bleeding: Yes Associated symptoms: foreign body sensation No, numbness/sensory loss distal to injury No Review Of Systems: Other systems are otherwise negative. Immunizations: Tetanus Up to date:Yes Allergy / Adverse Reaction History: Penicillins Rash Medications: Current Outpatient Prescriptions: Diltiazem HCl (CARDIZEM OR) [...] 4 TO 6 HOURS NEEDED Disp: Rfl: Past Medical History: No past medical history on file. Social History: Smoking Status: Former Smoker Packs/Day: Years: 10 Smokeless Status: Never Used Comment: quit 21 yrs ago Alcohol Use: Yes Comment: socially otherwise negative to presenting illness. Family History: negative to presenting illness.* PHYSICAL EXAM: BP 124/78 Pulse 58 Resp 18 Wt 150 lb (68.04 kg) SpO2 97% CONST: Vital signs reviewed. acute distress: none. age appropriate. SKIN: warm, dry, normal color, no rash Laceration: 1.5 cm to left foot over 1st MP joint. MUSC/SKELETAL: no functional deficit distal to the wound. Range of motion intact distal to wound. NEURO: alert & oriented, speech normal, motor strength intact, sensation intact, gait normal. PSYCH: mood & affect normal, speech normal, thought process normal for age. ASSESSMENT AND PLAN: REVIEW OF WORKUP None PROCEDURE NOTE LACERATION, SIMPLE Location: right foot above big toe. Length of wound : 1.5 cm Local Anesthesia: using 1% lidocaine, 1 ml was injected subcutaneously. Wound was copiously irrigated using high pressure normal saline resulting in a clean appearing wound. Skin adjacent to the wound was prepped and draped. Wound was explored. No foreign body was visualized. No sign injury to deeper anatomical structures (tendon, muscles, nerve) was seen. Wound was closed with 3 simple interrupted sutures using 4-O nylon / Vicryl Rapide. No complications. DIAGNOSIS AT DISCHARGE: Foot laceration (primary encounter diagnosis) Meds for this Visit: No prescriptions requested or ordered in this encounter The patient indicates understanding of the care plan and agrees to the plan. The patient has been instructed to follow up in [address] [facility] for a wound check. documented in this encounter Plan of Treatment Upcoming Encounters Date Type Department Care Team (Late st Contact Info) Description 11/24/2024 1:00 PM LACQUER SPRAY BOOTH OPERATOR Procedure Surgical Procedure Visit [phone] Titus Vieyra MD [address] [facility] [address] [place] [address] Scheduled Orders Name Type Priority Associated Diagnoses Orde r Schedule OFFICE/OUTPT VISIT,NEW,LEVL II PROCEDURES Routine Foot laceration Ordered: 06/07/2013 REPR SUPERF WND BODY <2.5CM PROCEDURES Routine Foot laceration Ordered: 06/07/2013 documented as of this encounter Visit Diagnoses Diagnosis Foot laceration- Primary Open wound of foot except toe(s) alone, without mention of complication documented in this encounter Care Teams Deicer Inspector Pneumatic Relationship Specialty Start Date End Date Jeison Orozco MD PCP - General 12/25/01 08/12/23 documented as of this encounter
--- OUTSIDE RECORDS SUMMARY | 2024-11-07 07:03 | XMS_ITS | Encounter Summary ---
Author Organization [facility] Address [address] [place] [address] Care Team Providers Care Seismic Observer Name Role Phone Jeison Orozco MD Primary Care Provider Unav ailable Reason for Referral * Nuclear Study (Urgent) - Closed Specialty Diagnoses / Procedures Referred By Delmi zee Referred To Contact Nuclear Medicine Diagnoses Chest pain A-fib (HCC) Procedures CARD NUC EXERCISE STRESS (REST/EXER) HT MUSCLE IMAGE SPECT, Jl Gaspar MD [address] [address] Referral ID Status Reason Start Date Expiration Date Visits Re quested Visits Authorized [id number] Closed 07/28/2013 10/26/2013 1 1 Reason for Visit * Reason Onset Date Comments Patient Question 07/28/2013 Encounter Details Date Type Department Care Team (Late st Contact Info) Description 07/28/2013 Telephone Cardiology - [place] [id number] [facility] [address] [place] [address] Jl Blackmon MD [address] [place] [address] Patient Question Social History Tobacco Use Types [...] of this encounter Progress Notes * Cecilia Betancourt - 07/29/2013 9:56 AM CDT Spoke with pt and scheduled the nuclear stress test for 08/12. Pt v/u. * Jl Blackmon MD - 07/28/2013 4:36 PM CDT I have ordered a nuc stress and she should f/u after. Thanks * Cecilia Betancourt - 07/28/2013 12:10 PM CDT Patient received results of Holter but still c/o chest tightness almost every day. She believes it is stress related but still is concerned and wants to know what Dr Blackmon thinks she should do. documented in this encounter Plan of Treatment Upcoming Encounters Date Type Department Care Team (Late st Contact Info) Description 11/24/2024 1:00 PM PROFESSOR OF LEGAL STUDIES Procedure Surgical Procedure Visit [phone] Titus Vieyra MD [address] [place] [address] [address] [place] [address] Pending Results Name Type Priority Associated Diagnoses Date /Time CARD NUC EXERCISE STRESS (REST/EXER) Cardiology Routine Chest pain A-fib (HCC) 08/12/2013 7:26 AM CDT Scheduled Orders Name Type Priority Associated Diagnoses Orde r Schedule CARD NUC EXERCISE STRESS (REST/EXER) Cardiology Routine Chest pain A-fib (HCC) Expected: 07/28/2013 (Approximate), Expires: 07/28/2014 documented as of this encounter Visit Diagnoses Diagnosis Chest pain- Primary Chest pain, unspecified A-fib (HCC) Atrial fibrillation documented in this encounter Care Teams Seismic Observer Relationship Specialty Start Date End Date Jeison Orozco MD PCP - General 12/25/01 08/12/23 documented as of this encounter
--- OUTSIDE RECORDS SUMMARY | 2024-11-07 07:03 | XMS_ITS | Encounter Summary ---
Author Organization [facility] Address [address] [place] [address] Care Team Providers Care Political Reporter Name Role Phone Jeison Orozco MD Primary Care Provider Unav ailable Reason for Visit * Reason Onset Date Comments Referral 08/25/2013 Encounter Details Date Type Department Care Team (Late st Contact Info) Description 08/25/2013 Telephone Internal Medicine - [facility] [address] [facility] [address] [place], [place] [phone] Qian Mathur MD [address] [facility] [address] [place] [address] Referral Social History Tobacco Use Types Packs/Day Years [...] as of this encounter Progress Notes * Sujatha Almodovar - 08/25/2013 2:[address] Qian Mathur, Approved, no prior auth is required For Ct Chest Any questions please call Sujatha Almodovar Boiler Fireman [phone] documented in this encounter Plan of Treatment Upcoming Encounters Date Type Department Care Team (Late st Contact Info) Description 11/24/2024 1:00 PM CITY JAILER Procedure Surgical Procedure Visit [phone] Titus Vieyra MD [address] [place] [address] [address] [place] [address] documented as of this encounter Visit Diagnoses Not on filedocumented in this encounter Care Teams Political Reporter Relationship Specialty Start Date End Date Jeison Orozco MD PCP - General 12/25/01 08/12/23 documented as of this encounter
--- OUTSIDE RECORDS SUMMARY | 2024-11-07 07:03 | XMS_ITS | Encounter Summary ---
Author Organization [facility] Address [address] [place] [address] Care Team Providers Care Gift Shop Assistant Name Role Phone Jeison Orozco MD Primary Care Provider Unav ailable Encounter Details Date Type Department Care Team (Late st Contact Info) Description 07/28/2012 Telephone Gastroenterology - [facility] [address] [facility] [address] [place], [place] [phone] Titus Vieyra MD [address] [facility] [address] [place], [place] [phone] Social History Tobacco Use Types Packs/Day Years [...] as of this encounter Progress Notes * Lana Plunkett - 07/28/2012 3:21 PM CDT Unable to reach patient or leave message by phone regarding preparation procedure. Home phone keepsringing to Obviousidea machine and no other numbers on file. documented in this encounter Plan of Treatment Upcoming Encounters Date Type Department Care Team (Late st Contact Info) Description 11/24/2024 1:00 PM LONG DISTANCE BILLING OPERATOR Procedure Surgical Procedure Visit [phone] Titus Vieyra MD [address] [place] [address] [address] [place] [address] documented as of this encounter Visit Diagnoses Not on filedocumented in this encounter Care Teams Gift Shop Assistant Relationship Specialty Start Date End Date Jeison Orozco MD PCP - General 12/25/01 08/12/23 documented as of this encounter
--- OUTSIDE RECORDS SUMMARY | 2024-11-07 07:03 | XMS_ITS | Encounter Summary ---
Author Organization [facility] Address [address] [place] [address] Care Team Providers Care Fiberglass Model Maker Name Role Phone Jeison Orozco MD Primary Care Provider Unav ailable Reason for Visit * Reason Onset Date Comments Sick Call 11/23/2013 Encounter Details Date Type Department Care Team (Late st Contact Info) Description 11/23/2013 Telephone Med/Peds - [facility] [address] [place], [place] [phone] Jeison Orozco MD Sick Call Social History Tobacco Use Types Packs/Day [...] as of this encounter Progress Notes * Arely Parra - 11/23/2013 5:11 PM CST Antibiotic called in ITECTURAL PROJECT CAPTAIN * Ashkan Orozco - 11/23/2013 5:02 PM CST Please call in omnicef 300mg one po bid #20 (tell pharmacy ok even with Penecillin allergy) ITECTURAL PROJECT CAPTAIN * Gissel Muller - 11/23/2013 4:19 PM CST Pt states she seen Dr. HARRIS on 11/08 for an URI and was prescribed a Zpak. Pt states now it is all inher sinuses. Pt c/o yellow/blood mucus, Lots of facial pressure, swollen eyes, and R nasal passage clogged. Pt states she has completed the Zpak and is requesting an RX to be called in. Please call pt when RX has been sent. Thank you! [place], [place] - [address] [address] [phone], ITECTURAL PROJECT CAPTAIN documented in this encounter Plan of Treatment Upcoming Encounters Date Type Department Care Team (Late st Contact Info) Description 11/24/2024 1:00 PM ARCHITECTURAL PROJECT CAPTAIN Procedure Surgical Procedure Visit [phone] Titus Vieyra MD [address] [facility] [address] [place] [address] documented as of this encounter Visit Diagnoses Not on filedocumented in this encounter Care Teams Fiberglass Model Maker Relationship Specialty Start Date End Date Jeison Orozco MD PCP - General 12/25/01 08/12/23 documented as of this encounter
--- OUTSIDE RECORDS SUMMARY | 2024-11-07 07:03 | XMS_ITS | Encounter Summary ---
Author Organization [facility] Address [address] [place] [address] Care Team Providers Care Brine Mixer Operator Name Role Phone Jeison Orozco MD Primary Care Provider Unav ailable Reason for Visit * Reason Comments Cough 5 days, sinus Chest Congestion headache Encounter Details Date Type Department Care Team (Late st Contact Info) Description 11/08/2013 3:45 PM SOD STRIPPER Office Visit Internal Medicine - [facility] [address] [facility] [address] [place], [place] [phone] Jeison Orozco MD Cough (Primary Dx); Acute maxillary sinusitis; Acute serous otitis media Social History Tobacco Use Types Packs/Day Years [...] Sign Reading Time Taken Comments Blood Pressure 130/70 11/08/2013 4:01 PM SOD STRIPPER Pulse 64 11/08/2013 4:01 PM SOD STRIPPER Temperature 36.7 ??C (98 ??F) 11/08/2013 4:01 PM SOD STRIPPER Respiratory Rate - - Oxygen Saturation 98% 11/08/2013 4:01 PM SOD STRIPPER Inhaled Oxygen Concentration - - Weight 68.5 kg (151 lb) 11/08/2013 4:01 PM SOD STRIPPER s hoes on Height 168.9 cm (5' 6.5 ) 11/08/2013 4:01 PM SOD STRIPPER Body Mass Index 24.01 11/08/2013 4:01 PM SOD STRIPPER documented in this encounter Progress Notes * Ashkan Orozco - 11/08/2013 5:14 PM CST [place] VISIT NOTE DATE OF VISIT: 11/08/2013 [facility] HISTORY OF PRESENT ILLNESS: The patient returns with illness for the past 5 days. It started with sore throat. PHYSICAL EXAMINATION: She has marked sinus congestion and fullness, trace early right otitis. The lungs have scattered rhonchi, no focal bronchial sounds. ALLERGIES: SHE IS ALLERGIC TO PENICILLIN. PLAN: Z-Chuck as directed, Cheratussin a.c. 2 tsp q.4 p.r.n. Let us know if she is not improving or if anything new or different develops. Cherrie Orozco MD PM/nr - PT NAME: TIMOTEO COSTELLO - STRIPPER documented in this encounter Plan of Treatment Upcoming Encounters Date Type Department Care Team (Late st Contact Info) Description 11/24/2024 1:00 PM SOD STRIPPER Procedure Surgical Procedure Visit [phone] Titus Vieyra MD [address] [place] [address] [address] [place] [address] Scheduled Orders Name Type Priority Associated Diagnoses Orde r Schedule OFFICE/OUTPT VISIT,EST,LEVL III PROCEDURES Routine Cough Acute maxillary sinusitis Acute serous otitis media Ordered: 11/08/2013 documented as of this encounter Visit Diagnoses Diagnosis Cough- Primary Acute maxillary sinusitis Acute serous otitis media documented in this encounter Care Teams Brine Mixer Operator Relationship Specialty Start Date End Date Jeison Orozco MD PCP - General 12/25/01 08/12/23 documented as of this encounter
--- OUTSIDE RECORDS SUMMARY | 2024-11-07 07:03 | XMS_ITS | Encounter Summary ---
Author Organization [facility] Address [address] [place] [address] Care Team Providers Care Industrial Maintenance Technician Name Role Phone Jeison Orozco MD Primary Care Provider Unav ailable Reason for Referral * OFFICE VISIT (Routine) - Closed Specialty Diagnoses / Procedures Referred By Delmi zee Referred To Contact Cardiology Diagnoses AF (atrial fibrillation) (HCC) Jl Blackmon MD [address] [place] [id number] Referral ID Status Reason Start Date Expiration Date Visits Re quested Visits Authorized [id number] Closed 06/22/2013 06/22/2014 1 1 Scheduling Instructions THIS IS NOT A REFERRAL This service can be performed at the following locations. Please call one of the numbers listed below to schedule an appointment. [facility] Cardiology at [facility] - [address], [address] [place] (phone: [phone]) [facility] Cardiology at [facility] - [address] [place] [address] (phone: [phone]) [facility] Cardiology at [facility] - [address] [place] [address], [address], [place] (phone: [phone]) If you are confident that your benefit plan will not require a referral or authorization, please feel free to schedule your appointment immediately. However, if you are unsure about the requirements for authorization, please wait 72 hours and then contact the [facility] at . At that time, you will be provided with any authorization numbers or be assured that none are required. You can then schedule your appointment. Failure to obtain required authorization numbers can create reimbursement difficulties for you. * Tests (Urgent) - Closed Specialty Diagnoses / Procedures Referred By Contac t Referred To Contact Cardiology Diagnoses AF (atrial fibrillation) (HCC) Procedures ECG MONITOR/24 HRS,COMPLETE Jl Blackmon MD [address] [place] [id number] Referral ID Status Reason Start Date Expiration Date Visits Re quested Visits Authorized [id number] Closed 06/22/2013 09/20/2013 3 3 Scheduling Instructions THIS IS NOT A REFERRAL This service can be performed at the following locations. Please call one of the numbers listed below to schedule an appointment. [facility] Cardiology at [facility] - [address] [place] [address], [address] [place] (phone: [phone]) [facility] Cardiology at [facility] - [address] [place] [address] (phone: [phone]) [facility] Cardiology at [facility] - [address] [place] [address] (phone: [phone]) If you are confident that your benefit plan will not require a referral or authorization, please feel free to schedule your appointment immediately. However, if you are unsure about the requirements for authorization, please wait 72 hours and then contact the [facility] at . At that time, you will be provided with any authorization numbers or be assured that none are required. You can then schedule your appointment. Failure to obtain required authorization numbers can create reimbursement difficulties for you. Reason for Visit * Reason Comments Hospital F/U Encounter Details Date Type Department Care Team (Late st Contact Info) Description 06/22/2013 1:30 PM CDT Office Visit Cardiology - [address] [place], [place] [id number] Jl Blackmon MD [address] [place] [address] AF (atrial fibrillation) (HCC) (Primary Dx); Palpitations [...] Sign Reading Time Taken Comments Blood Pressure 114/78 06/22/2013 1:48 PM CDT Pulse 57 06/22/2013 1:48 PM CDT Temperature - - Respiratory Rate - - Oxygen Saturation - - Inhaled Oxygen Concentration - - Weight 69.4 kg (153 lb) 06/22/2013 1:48 PM CDT Height 168.3 cm (5' 6.25 ) 06/22/2013 1:48 PM CD T Body Mass Index 24.51 06/22/2013 1:48 PM CDT documented in this encounter Patient Instructions * Patient Instructions* Diane Aragon - 06/22/2013 2:27 PM CDT Discontinue rx Eliquis Start rx aspirin 325 mg one tab daily Wear a 24 hour holter monitor Follow up with Dr Blackmon in 6 mos documented in this encounter Progress Notes * Jl Blackmon MD - 06/22/2013 1:41 PM CDT Tonya Costello is a 52 year old female with symptomatic PAF s/p DIONTE/DCCV at [facility] 05/19/13. Rare palpitations but no sustained arrythmia since discharge. Tolerating current meds well. She hasn't beenexercising b/c does not want to raise her heart rate. She cut her foot which required suture repair. Still under stress at work. The patient otherwise denies chest pain, shortness of breath, lightheadedness, syncope, orthopnea, paroxysmal nocturnal dyspnea, or edema. HISTORY: Past Medical History Diagnosis Date ??? AF (atrial fibrillation) 06/21/2013 Medications: Current Outpatient Prescriptions: Estradiol (VAGIFEM) [address] vag[address] Use twice weekly Disp: Rfl: apixaban (ELIQUIS) 2.5 MG Oral Tab Take 5 mg by mouth 2 (two) times daily. Disp: Rfl: Diltiazem HCl (CARDIZEM OR) Disp: Rfl: Ibuprofen 200 MG Oral Tab 1 TABLET EVERY 4 TO 6 HOURS NEEDED Disp: Rfl: Allergies: Penicillins Rash ROS: No easy bruising or bleeding problems. No excessive fatigue or sleep disturbance. All systems were reviewed and are negative except as described above. Physical: BP 114/78 Pulse 57 Ht 1.683 m (5' 6.25 ) Wt 69.4 kg (153 lb) BMI 24.51 kg/m2 GENERAL: well developed, well nourished, in [...] severe emotional stress related to her work. 2. Occ palpitations Plan: ?? May transition Eliquis to asa 325mg daily I reviewed risks of stroke related to AFib, and the risks/benefits of anti- coagulation. I discussedthe different treatment strategies. ?? Holter monitor to discern if PACs/isolated ectopy vs recurrent pAF ?? Ok to increase activity as tolerated ?? Notify me for worsening sx ?? F/u 6 mos, sooner prn. Will provide holter results when available. documented in this encounter Procedure Notes * Generated, Interface - 06/24/2013 3:18 PM CDTAssociated Order(s): ELECTROCARDIOGRAM, COMPLETE documented in this encounter Plan of Treatment Upcoming Encounters Date Type Department Care Team (Late st Contact Info) Description 11/24/2024 1:00 PM JAVASCRIPT ENGINEER Procedure Surgical Procedure Visit [phone] Titus Vieyra MD [address] [facility] [place] [address] [place] [address] Scheduled Orders Name Type Priority Associated Diagnoses Orde r Schedule OFFICE/OUTPT VISIT,EST,LEVL IV PROCEDURES Routine AF (atrial fibrillation) (HCC) Palpitations Ordered: 06/22/2013 Scheduled Referrals Name Type Priority Associated Diagnoses Orde r Schedule HOLTER MON - 24H, CARDIO ([facility]) Referral Routine AF (atrial fibrillation) (HCC) Ordered: 06/22/2013 FOLLOW-UP, CARDIO ([facility]) Referral Routine AF (atrial fibrillation) (HCC) Expected: 12/19/2013 (Approximate), Expires: 06/22/2014 documented as of this encounter Procedures Procedure Name Priority Date/Time Associated Diagnosis Comments ECG ROUTINE ECG W/LEAST 12 LDS W/I&R Routine 06/24/2013 9:25 PM CDT AF (atrial fibrillation) (HCC) documented in this encounter Results * ELECTROCARDIOGRAM, COMPLETE (06/24/2013 9:25 PM CDT) Narrative Transcriptions Generated, Interface - 06/24/2013 3:18 PM CDT Jl Blackmon MD [employer] documented in this encounter Visit Diagnoses Diagnosis AF (atrial fibrillation) (HCC)- Primary Atrial fibrillation Palpitations documented in this encounter Care Teams Industrial Maintenance Technician Relationship Specialty Start Date End Date Jeiosn Orozco MD PCP - General 12/25/01 08/12/23 documented as of this encounter
--- OUTSIDE RECORDS SUMMARY | 2024-11-07 07:03 | XMS_ITS | Encounter Summary ---
Author Organization [facility] Address [address] [place] [address] Care Team Providers Care Livestock Yard Supervisor Name Role Phone Jeison Orozco MD Primary Care Provider Unav ailable Reason for Visit * Reason Onset Date Comments Refill Request 09/27/2013 Diltiazem HCl (C ARDIZEM OR) 120 mg Encounter Details Date Type Department Care Team (Late st Contact Info) Description 09/27/2013 Refill Med/Peds - [facility] [address], [place] [phone] Qian Mathur MD [address] [facility] [address] [place] [address] Refill Request (Diltiazem HCl (CARDIZEM OR) 120 mg) Social History Tobacco Use Types Packs/Day Years [...] encounter Progress Notes * Arely Parra - 09/28/2013 8:56 AM CST No future appointments. Last seen 08/23/13- Dr Mathur No recent labs ER OPERATOR * Kimberley Roche - 09/27/2013 10:39 AM CST vm left today @ 10:31 am Pt requesting new script for Diltiazem HCl (CARDIZEM OR) 120 mg [facility] ER OPERATOR documented in this encounter Plan of Treatment Upcoming Encounters Date Type Department Care Team (Late st Contact Info) Description 11/24/2024 1:00 PM FILLER OPERATOR Procedure Surgical Procedure Visit [phone] Titus Vieyra MD [address] [place] [address] [address] [place] [address] documented as of this encounter Visit Diagnoses Not on filedocumented in this encounter Care Teams Livestock Yard Supervisor Relationship Specialty Start Date End Date Jeison Orozco MD PCP - General 12/25/01 08/12/23 documented as of this encounter
--- OUTSIDE RECORDS SUMMARY | 2024-11-07 07:03 | XMS_ITS | Encounter Summary ---
Author Organization [facility] Address [address] [place] [address] Care Team Providers Care Wire Mill Operator Name Role Phone Jeison Orozco MD Primary Care Provider Unav ailable Reason for Referral * CT (Urgent) - Closed Specialty Diagnoses / Procedures Referred By Delmi zee Referred To Contact Radiology Diagnoses Abnormal finding on imaging Rhinitis Procedures CT CHEST(CONTRAST ONLY) ([id number]=[id number]) Qian Mathur MD [address] [place] [address] Referral ID Status Reason Start Date Expiration Date Visits Re quested Visits Authorized [id number] Closed 08/25/2013 08/23/2014 1 1 * E/M Services (Routine) - Closed Specialty Diagnoses / Procedures Referred By Delmi zee Referred To Contact Otolaryngology Diagnoses Rhinitis Abnormal finding on imaging Qian Mathur MD [address] [place] [address] Referral ID Status Reason Start Date Expiration Date Visits Re quested Visits Authorized [id number] Closed 08/23/2013 08/23/2014 6 6 Scheduling Instructions This department is supported by [facility] and sees patients of all ages. If your appointment has not been made for you during today's visit, please refer to the scheduling instructions below. HFS and Access [facility] patients should call the department directly to schedule their appointments. Your physician has referred you to an Clinical Informatics Specialist affiliated with [facility]. Please call one of the locations listed below to schedule your appointment. [facility] in [place]: [address], [address], [place] [address] [facility] in [place]: [address], [address], [place] [address] [facility] in [place] (on [facility]): [address], [address], [place] [address] [facility] in [place] (on [facility]): [address], [address], [place] [address] For more information about [facility] Otolaryngology, Head and Neck Surgery and to access patient instructions and/or forms, please visit our website at: [email or web address] In order to insure proper patient identification, [...] office or the Utilization Management Department at [phone], seventy-two (72) hours after the order is placed. Referrals can not be entered retrospectively. IF YOU HAVE PPO INSURANCE COVERAGE If your medical insurance is a PPO, it is the patient's responsibility to confirm that any provider, vendor and/or facility outside of [facility] is in your network. Although your PPO insurance may not require referrals, there are certain procedures (MRI, Nuclear Stress Test, Surgery, etc.) that may require an authorization from your insurance company. As long as the service is being performed at [facility], the [facility] UM staff will obtain the necessary authorization on your behalf. IF YOU HAVE HMO INSURANCE COVERAGE Your insurance requires a referral from your Primary Care Physician. [facility] will obtain authorization from your insurance company for services ordered by your [facility] PCP or [facility] specialist. A referral is not a guarantee of benefit, and we highly recommend that you call your insurance company to verify your coverage Reason for Visit * Reason Comments Test Results discuss stress test Encounter Details Date Type Department Care Team (Late st Contact Info) Description 08/23/2013 11:30 AM CDT Office Visit Internal Medicine - [facility] [address] [address] [place], [place] [phone] Qian Mathur MD [address] [place], [place] [id number] Abnormal finding on imaging (Primary Dx); Rhinitis Social History Tobacco Use Types Packs/Day Years [...] Sign Reading Time Taken Comments Blood Pressure 118/68 08/23/2013 11:43 AM CDT Pulse 60 08/23/2013 11:43 AM CDT Temperature 36.9 ??C (98.4 ??F) 08/23/2013 11:43 AM C DT Respiratory Rate - - Oxygen Saturation - - Inhaled Oxygen Concentration - - Weight 66.5 kg (146 lb 9.6 oz) 08/23/2013 11:43 AM CDT Height 167.6 cm (5' 6 ) 08/23/2013 11:43 AM CDT Body Mass Index 23.66 08/23/2013 11:43 AM CDT documented in this encounter Progress Notes * Qian Mathur MD - 08/23/2013 11:49 AM CDT Tonya Costello is a 52 year old female. Patient presents with: Test Results - discuss stress test PMH below Sees Dr Blackomn for AF Recent NL nuc stress test but showed Intense focal extracardiac activity is noted in the left upperthorax. Consider further imaging of this finding such as mammography and/or chest CT, as clinicallywarranted. Remote tob - quit 25 yr ago. No chronic cough, hemoptysis. No unexplained wt changes. On ASA. Was on eliquis but change to asa 05/2013 per cardiol Due for mammo Dec (per gyne). ROS OUTLINED ABOVE. OTHERWISE REVIEWED ACROSS 10 [...] TO SPLENIC FLEXURE; W/DIRECTED SUBMUCOSA INJECTION(S), ANY HIULOIBOS18/8/2012 FLEX SIG 12/2012 Comment 3 mm sigmoid polyp was adenoma. No recurrent polyp at tattoo site at 40 cm SIGMOIDOSCOPY,BIOPSY 01/11/2013 Comment Procedure: FLEXIBLE SIGMOIDOSCOPY WITH BIOPSY, POLYPECTOMY; Surgeon: Titus Vieyra MD;Location: [facility] No family history on file. Smoking [...] B Combined 02/25/2011 03/29/2011 10/15/2011 TDAP 02/25/2011 Technetium Tc99mm Sestamibi, Iv, Up To 40 Millicuries 08/12/2013 PE Blood pressure 118/68, pulse 60, temperature 98.4 ??F (36.9 ??C), temperature source Oral, height 5' 6 , weight 146 lb 9.6 oz. Genl: NAD Lungs CTA b/l ASSESSMENT AND PLAN: 1. AF - per cardiol 2. Abn tracer uptake on nuc test -CT ordered -f/u gyne for breast exam, mammo ordere See orders After visit summary given to pt The patient indicates understanding of these issues and agrees to the plan. All of pt's ?s were answered today documented in this encounter Plan of Treatment Upcoming Encounters Date Type Department Care Team (Late st Contact Info) Description 11/24/2024 1:00 PM STAFF CYTOTECHNOLOGIST Procedure Surgical Procedure Visit [phone] Titus Vieyra MD [address] [facility] [address] [place] [address] Scheduled Orders Name Type Priority Associated Diagnoses Orde r Schedule OFFICE/OUTPT VISIT,EST,LEVL III PROCEDURES Routine Abnormal finding on imaging Rhinitis Ordered: 08/23/2013 Scheduled Referrals Name Type Priority Associated Diagnoses Orde r Schedule EVALUATE & TREAT, ENT ([facility]) Referral Routine Rhinitis Abnormal finding on imaging Ordered: 08/23/2013 documented as of this encounter Results * CT CHEST(CONTRAST ONLY) (SUC=[id number]) (08/26/2013 4:12 PM CDT) Anatomical Region Laterality Modality Chest, Lung Computed Tomogra phy 08/26/2013 4:00 PM CDT Narrative 08/26/2013 4:[address] CHEST WITH CONTRAST COMPARISON: ??24 October 2011 chest radiograph and [address] INDICATION: ??Abnormal lung field findings. TECHNIQUE: ??Multiple 5 mm collimated helical images of the chest were performed from the thoracic inlet through the adrenal glands. ??Nonionic intravenous contrast was administered without immediate complications. ??80 cc of Isovue 370 were administered intravenously. ??The data was reconstructed into 1mm collimated axial images. Automated exposure control and ALARA manual techniques for patient specific dose reduction were followed while maintaining the necessary diagnostic image quality. FINDINGS: ??The heart is normal in size and shape and the aorta is normal in course and caliber. There is no evidence of mediastinal or hilar lymphadenopathy. ??The pulmonary parenchyma demonstrates a subtle area of irregularly marginated density in the left upper lobe on image 97 of 316 which measures up to 8 mm and was seen on the March 2010 examination without significant interval change allowing for difference in slice selection. Additional subtle curvilinear nodule is seen in the right upper lobe on image 72 measuring 3-4 mm which was seen on the prior exam as well and stable. An additional area of nodularity is seen in the lingular segment of the left upper lobe on image 165 which was also noted on the 2010 exam. New masses or consolidations are not distinctly identified and some biapical pleural thickening is again seen. ??The central airways are grossly patent. ??There is no pleural effusion or pneumothorax. ?? The visualized osseous structures are well within normal limits and the visualized abdomen is grossly unremarkable. IMPRESSION 1. Subtle parenchymal areas of nodularity measuring up to 8 mm demonstrate at least 40 months of stability consistent with benign etiology. There is no need for continued followup of this nodularity. 2. Stable mild biapical pleural thickening. Procedure Note Tyree Nicole MD - 08/26/2013 CT CHEST WITH CONTRAST COMPARISON: 24 October 2011 chest radiograph and 23 April 2010 chestCT. INDICATION: Abnormal lung field findings. TECHNIQUE: Multiple 5 mm collimated helical images of the chest wereperformed from the thoracic inlet through the adrenal glands. Nonionic intravenous contrast wasadministered without immediate complications. 80 cc of Isovue 370 were administered intravenously. Thedata was reconstructed into 1mm collimated axial images. Automated exposure control and ALARA manual techniques for patientspecific dose reduction were followed while maintaining the necessary diagnostic image quality. FINDINGS: The heart is normal in size and shape and the aorta is normalin course and caliber. There is no evidence of mediastinal or hilar lymphadenopathy. Thepulmonary parenchyma demonstrates a subtle area of irregularly marginated density in the left upper lobe onimage 97 of 316 which measures up to 8 mm and was seen on the March 2010 examination withoutsignificant interval change allowing for difference in slice selection. Additional subtle curvilinearnodule is seen in the right upper lobe on image 72 measuring 3-4 mm which was seen on the priorexam as well and stable. An additional area of nodularity is seen in the lingular segment of theleft upper lobe on image 165 which was also noted on the 2010 exam. New masses or consolidations arenot distinctly identified and some biapical pleural thickening is again seen. The central airwaysare grossly patent. There is no pleural effusion or pneumothorax. The visualized osseous structures are well within normal limits and thevisualized abdomen is grossly unremarkable. IMPRESSION 1. Subtle parenchymal areas of nodularity measuring up to 8 mm demonstrateat least 40 months of stability consistent with benign etiology. There is no need for continuedfollowup of this nodularity. 2. Stable mild biapical pleural thickening. Qian Mathur MD RIS CT documented in this encounter Visit Diagnoses Diagnosis Abnormal finding on imaging- Primary Other nonspecific (abnormal) findings on radiological and other examinations of body structure Rhinitis Chronic rhinitis documented in this encounter Care Teams Wire Mill Operator Relationship Specialty Start Date End Date Jeison Orozco MD PCP - General 12/25/01 08/12/23 documented as of this encounter
--- OUTSIDE RECORDS SUMMARY | 2024-11-07 07:03 | XMS_ITS | Encounter Summary ---
Author Organization [facility] Address [address] [place] [address] Care Team Providers Care Snag Grinder Name Role Phone Jeison Orozco MD Primary Care Provider Unav ailable Reason for Referral * Tests (Routine) - Closed Specialty Diagnoses / Procedures Referred By Delmi zee Referred To Contact Otolaryngology Diagnoses Unspecified hearing loss Caitlin Hearn MD [address] [address] Referral ID Status Reason Start Date Expiration Date Visits Re quested Visits Authorized [id number] Closed 10/25/2013 01/23/2014 1 1 Scheduling Instructions THIS IS NOT A REFERRAL Your physician has referred you to an polo coach affiliated with [facility]. Please call one of the locations listed below to schedule your appointment. Clem Hidalgo [place] For more information about [facility] physicians and locations, visit [email or web address].[email or web address]. Your insurance may require a referral for these services. If a referral is required, the [facility] staff will obtain all necessary authorizations prior to your visit. If you have any questions about this process, you can contact [phone]. T AID TEACHER Reason for Visit * Reason Comments Nose Problem sores bilateral nose noted after one exposure to chemical/cleaning supplies. Crusty/hard scabs painful, occur daily, occasional bleeding noted. Improving over last 6 days Ear Problem tinnitus - hx sporad ic tinnitus x 10 yrs, started continually over last 2 yrs. No hx continual noise exposure but loud noises seem to trigger current tinnitus. Brother has tinnitus hx as well.Denios hx ear infections. Throat Problem white smelly lumps n oted in pockets of tonsils Encounter Details Date Type Department Care Team (Latest Contact Info) Description 10/25/2013 1:40 PM FIRST AID TEACHER [facility] [address] [facility] [address] [place] [address] Caitlin Hearn MD [address] [facility] [address] [place] [address] Unspecified hearing loss (Primary Dx); Tonsil stone; Tinnitus; Nasal sore Social History Tobacco Use Types Packs/Day Years [...] on file documented as of this encounter Patient Instructions * Patient Instructions* Caitlin Hearn - 10/25/2013 2:40 PM FIRST AID TEACHER Can take Lipoflavanoids (a dietary supplement) to reduce the intensity of the ringing in the ears. They are available at [employer], [place], [employer], etc. T AID TEACHER documented in this encounter Progress Notes * Generated, Interface - 11/05/2013 9:21 AM CST T AID TEACHER * Generated, Interface - 11/05/2013 9:21 AM CST T AID TEACHER * Caitlin Hearn - 10/25/2013 2:[address] Mathur, I had the pleasure of seeing Tonya Costello in consultation. She is a 52 year old who presents with a complaint of sores in her nose. In late June, she begin having sores bilaterally. They were noted after one exposure to chemical/cleaning supplies. Crusty/hard scabs painful, occur daily, occasional bleeding noted. Improving over last 6 days. Has been using Neosporin in the nose. Her dog had a MRSA infection a couple of years ago. In a second complaint, tinnitus - hx sporadic tinnitus x 10 yrs, started continually over last 2 yrs. No hx continual noise exposure but loud noises seem to trigger current tinnitus. Brother has tinnitus hx as well. In a third complaint, white smelly lumps noted in pockets of tonsils. No history of recurrent tonsillitis. HISTORY: Past Medical History Diagnosis Date ??? AF (atrial fibrillation) 06/21/2013 Past Surgical History REMOVAL OF COCCYX OTHER SURGICAL HISTORY Comment facial plastic surgery COLONOSCOPY,BIOPSY 08/03/2012 Comment small cecal and ascending colon polps. Also, 13 mm flat polyp at about 40 cm from anus was tattooed was adenoma. Joaquin-colonic diverticulosis COLONOSCOPY,EHSAN DONALDSON,SNARE 08/03/2012 COLONOSCPY, FLEXIBLE, PROXIMAL TO SPLENIC FLEXURE; W/DIRECTED SUBMUCOSA INJECTION(S), ANY IQGUTRAUE22/8/2012 FLEX SIG 12/2012 Comment 3 mm sigmoid polyp was adenoma. No recurrent polyp at tattoo site at 40 cm SIGMOIDOSCOPY,BIOPSY 01/11/2013 Comment Procedure: FLEXIBLE SIGMOIDOSCOPY WITH BIOPSY, POLYPECTOMY; Surgeon: Titus Vieyra MD;Location: [facility] No family history on file. Smoking Status: Former Smoker Packs/Day: Years: 10 Smokeless Status: Never Used Comment: quit 21 yrs ago Alcohol Use: Yes Comment: socially MEDICATIONS: has a current medication list which includes the following prescription(s): b complex vitamins, mupirocin calcium, diltiazem hcl, estradiol, aspirin, and ibuprofen. ALLERGY: Penicillins Rash REVIEW OF SYSTEMS: The standard review of systems sheet was available and reviewed. PHYSICAL EXAMINATION: There were no vitals taken for this visit. General: well-developed 52 year old in no acute distress. Ability to communicate is age appropriate. The quality of voice is normal. Head: Atraumatic, normocephalic. Face: strength and symmetry are normal. No palpable masses or lesions. Ears: external ears - normal. No cerumen or debris in the EACs. There is no fluid in the middle earspaces. TMs move well to insufflation. Nose: Minimal secretions are noted in both anterior nares. Mucosa is pink and moist. Septum is midline. Turbinates are non-enlarged. Nasal endoscopy: She has one small (< 1 mm) vesicle on the anterior septum on the left. Several small scabs notedon both sides on septum and along the vibrisae bilaterally. No intranasal masses. Lips: normal. Oral cavity: Mucosa is pink and moist. Soft palate rises symmetrically. 1 + tonsils. No visible tonsilliths. Neck: No palpable lymphadenopathy, masses or lesions. Salivary glands: The submandibular and parotid glands are within normal limits. Thyroid: non-enlarged. Audiogram: Normal hearing bilaterally from 250-4 KHz with a mild sensorineural hearing loss at 8 KHz. Tympanograms: Normal tympanograms ASSESSMENT: Unspecified hearing loss (primary encounter diagnosis) Tonsil stone Tinnitus Nasal sore PLAN: With respect to the nasal sores, I have prescribed Bactroban ointment in her nose for 2 weeks. With respect to the tonsil stones, I have recommended watchful waiting and use of either a water pick or salt water gargles to irrigate the tonsils. Finally, with respect to the tinnitus, we dicussed reduction of caffeine, salt, alcohol and stress.I have also recommended a trial of Lipoflavanoids. She understands and agrees with the plan. I will follow up with Tonya in 2-3 weeks to re-examine her nose. Please do not hesitate to call if you have questions or concerns. Thank you for involving [facility]. Sincerely, Caitlin Hearn MD Department of Otolaryngology T AID TEACHER documented in this encounter Plan of Treatment Upcoming Encounters Date Type Department Care Team (Late st Contact Info) Description 11/24/2024 1:00 PM FIRST AID TEACHER Procedure Surgical Procedure Visit [phone] Titus Vieyra MD [address] [place] [address] [address] [place] [address] Scheduled Orders Name Type Priority Associated Diagnoses Orde r Schedule OFFICE CONSULTATION,LEVEL III PROCEDURES Routine Unspecified hearing loss Tonsil stone Tinnitus Nasal sore Ordered: 10/25/2013 NASAL ENDOSCOPY,DX PROCEDURES Routine Unspecified hearing loss Tonsil stone Tinnitus Nasal sore Ordered: 10/25/2013 documented as of this encounter Procedures Procedure Name Priority Date/Time Associated Diagnosis Comments AUDIOLOGICAL DIAGNOSTIC TESTING (DULY) Routine 10/25/2013 Unspecified hearing loss documented in this encounter Results * AUDIOLOGICAL DIAGNOSTIC TESTING (10/25/2013) Caitlin Hearn MD REFERRAL [facility] documented in this encounter Visit Diagnoses Diagnosis Unspecified hearing loss- Primary Tonsil stone Other chronic disease of tonsils and adenoids Tinnitus Unspecified tinnitus Nasal sore Other diseases of nasal cavity and sinuses documented in this encounter Care Teams Snag Grinder Relationship Specialty Start Date End Date Jeison Orozco MD PCP - General 12/25/01 08/12/23 documented as of this encounter
--- OUTSIDE RECORDS SUMMARY | 2024-11-07 07:03 | XMS_ITS | Encounter Summary ---
Author Organization [facility] Address [address] [place] [address] Care Team Providers Care Direct Marketing Manager Name Role Phone Jeison Orozco MD Primary Care Provider Unav ailable Encounter Details Date Type Department Care Team (Late st Contact Info) Description 08/20/2013 Telephone Med/Peds - [facility] [address] [place] [address] Qian Mathur MD [address] [facility] [address] [place], [place] [phone] Social History Tobacco Use Types Packs/Day Years [...] st Contact Info) Description 11/24/2024 1:00 PM FERMENTATION SCIENTIST Procedure Surgical Procedure Visit [phone] Titus Vieyra MD [address] [place] [address] [address] [place], [place] [phone] documented as of this encounter Visit Diagnoses Not on filedocumented in this encounter Care Teams Direct Marketing Manager Relationship Specialty Start Date End Date Jeison Orozco MD PCP - General 12/25/01 08/12/23 documented as of this encounter
--- OUTSIDE RECORDS SUMMARY | 2024-11-07 07:03 | XMS_ITS | Encounter Summary ---
Author Organization [facility] Address [address] [place] [address] Care Team Providers Care Lightout Examiner Name Role Phone Jeison Orozco MD Primary Care Provider Unav ailable Reason for Visit * Reason Comments Fall PT FELL INJURING BOT H WRISTS AND BUTT Encounter Details Date Type Department Care Team (Late st Contact Info) Description 11/25/2012 3:30 PM BLOOD BANK MANAGER Office Visit Internal Medicine - [facility] [address] [facility] [address] [place], [place] [phone] Qian Mathur MD [address] [facility] [address] [place] [address] Injury of sacrum (Primary Dx) Social History Tobacco Use Types [...] Sign Reading Time Taken Comments Blood Pressure 128/84 11/25/2012 3:56 PM BLOOD BANK MANAGER Pulse 70 11/25/2012 3:56 PM BLOOD BANK MANAGER Temperature 37.1 ??C (98.7 ??F) 11/25/2012 3:56 PM CS T Respiratory Rate - - Oxygen Saturation - - Inhaled Oxygen Concentration - - Weight 68.9 kg (152 lb) 11/25/2012 3:56 PM BLOOD BANK MANAGER Height 168.3 cm (5' 6.25 ) 11/25/2012 3:56 PM CS T Body Mass Index 24.35 11/25/2012 3:56 PM BLOOD BANK MANAGER documented in this encounter Progress Notes * Qian Mathur MD - 11/25/2012 4:07 PM CST Tonya Costello is a 51 year old female. Patient presents with: Fall - PT FELL INJURING BOTH WRISTS AND BUTT fell while bowling 2 wks ago. Fell backward onto wrists and buttocks. Had b/l wrist pain/swelling which is resolved. Past hx coccyx removal d/t recurrent fx/injuries Has persistent pain over sacrum, worse w/ lifting ROS OUTLINED ABOVE. OTHERWISE REVIEWED ACROSS 10 CATEGORIES AND NEGATIVE HISTORY: No past medical history on file. Past Surgical History REMOVAL OF COCCYX OTHER SURGICAL HISTORY Comment facial plastic surgery COLONOSCOPY,BIOPSY 08/03/2012 Comment small cecal and ascending colon polps. Also, 13 mm flat polyp at about 40 cm from anus was tattooed was adenoma. Joaquin-colonic diverticulosis COLONOSCOPY,EHSAN DONALDSON,SNARE 08/03/2012 COLONOSCPY, FLEXIBLE, PROXIMAL TO SPLENIC FLEXURE; W/DIRECTED SUBMUCOSA INJECTION(S), ANY WDMAURVOB84/8/2012 No family history on file. Smoking Status: Former Smoker Packs/Day: Years: 10 Smokeless Status: Never Used Comment: quit 21 yrs ago Alcohol Use: Yes Comment: socially Current Outpatient Prescriptions: TURMERIC OR 1 Tab by Does not apply route daily. Disp: Rfl: Multiple Vitamins-Minerals (ONE DAILY COMPLETE) Oral Tab Take 1 Tab by mouth daily. Disp: Rfl: Ibuprofen 200 MG Oral Tab 1 TABLET EVERY 4 TO 6 HOURS NEEDED Disp: Rfl: ALLERGIES: Penicillins Rash Immunization History Administered Date(s) Administered HEP A/HEP B Combined 02/25/2011 03/29/2011 10/15/2011 TDAP 02/25/2011 PE Blood pressure 128/84, pulse 70, temperature 98.7 ??F (37.1 ??C), temperature source Oral, height 5' 6.25 , weight 152 lb. Genl: NAD Sacrum: no bruising. Nontender. Not swollen ASSESSMENT AND PLAN: See orders After visit summary given to pt The patient indicates understanding of these issues and agrees to the plan. All of pt's ?s were answered today D BANK MANAGER documented in this encounter Plan of Treatment Upcoming Encounters Date Type Department Care Team (Late st Contact Info) Description 11/24/2024 1:00 PM BLOOD BANK MANAGER Procedure Surgical Procedure Visit [phone] Titus Vieyra MD [address] [facility] [address] [place] [address] Scheduled Orders Name Type Priority Associated Diagnoses Orde r Schedule OFFICE/OUTPT VISIT,EST,LEVL III PROCEDURES Routine Injury of sacrum Ordered: 11/25/2012 documented as of this encounter Results * XR SACRUM + COCCYX (MIN 2 VIEWS) (BQJ=[id number]) (11/25/2012 4:35 PM BLOOD BANK MANAGER) Anatomical Region Laterality Modality Pelvis Computed Radiogr aphy 11/25/2012 4:30 PM BLOOD BANK MANAGER Impressions 11/25/2012 5:23 PM BLOOD BANK MANAGER IMPRESSION: Minimally displaced proximal coccyx fracture suspected. Narrative 11/25/2012 5:23 PM BLOOD BANK MANAGER VIEWS SACRUM/COCCYX COMPARISON: ??None available. INDICATION: ??Sacral injury. FINDINGS: ??Subtle oblique cortical irregularity is seen within portions of the proximal coccyx with mild cortical step off suggesting a mildly displaced fracture. The sacroiliac joints and visualized hip joints are within normal limits. No focal osseous lytic or blastic lesions are identified. Procedure Note Tyree Nicole MD - 11/25/2012 VIEWS SACRUM/COCCYX COMPARISON: None available. INDICATION: Sacral injury. FINDINGS: Subtle oblique cortical irregularity is seen within portions ofthe proximal coccyx with mild cortical step off suggesting a mildly displaced fracture. Thesacroiliac joints and visualized hip joints are within normal limits. No focal osseous lytic or blasticlesions are identified. ===== IMPRESSION: Minimally displaced proximal coccyx fracture suspected. Qian Mathur MD RIS XRAY documented in this encounter Visit Diagnoses Diagnosis Injury of sacrum- Primary Other injury of other sites of trunk documented in this encounter Care Teams Lightout Examiner Relationship Specialty Start Date End Date Jeison Orozco MD PCP - General 12/25/01 08/12/23 documented as of this encounter
--- OUTSIDE RECORDS SUMMARY | 2024-11-07 07:03 | XMS_ITS | Encounter Summary ---
Author Organization [facility] Address [address] [place] [address] Care Team Providers Care Compensation Analyst Name Role Phone Jeison Orozco MD Primary Care Provider Unav ailable Reason for Visit * Tests (Urgent) - Closed Specialty Diagnoses / Procedures Referred By Contac t Referred To Contact Cardiology Diagnoses AF (atrial fibrillation) (HCC) Procedures ECG MONITOR/24 HRS,COMPLETE Jl Blackmon MD [address] [address] Referral ID Status Reason Start Date Expiration Date Visits Re quested Visits Authorized [id number] Closed 06/22/2013 09/20/2013 3 3 Encounter Details Date Type Department Care Team (Late st Contact Info) Description 07/14/2013 9:30 AM CDT Office Visit Cardiology - [facility] [address] [facility] [address] [place], [place] [address] AF (atrial fibrillation) (HCC) (Primary Dx) Social [...] of this encounter Progress Notes * Arely Chang Rn - 07/20/2013 11:32 AM CDTQuick Note: Patient sent letter with Holter test results and follow up instructions. * Jl Blackmon MD - 07/19/2013 3:12 PM CDTQuick Note: Monitor showed no AF. CPM and f/u as planned documented in this encounter Procedure Notes * Generated, Interface - 07/22/2013 1:04 PM CDTAssociated Order(s): ECG MONITOR/24 HRS,COMPLETE * Generated, Interface - 07/19/2013 6:50 AM CDTAssociated Order(s): ECG MONITOR/24 HRS,COMPLETE * Horace Lui - 07/16/2013 4:02 PM CDTAssociated Order(s): ECG MONITOR/24 HRS,COMPLETE HOLTER MONITOR REPORT NAME: TIMOTEO COSTELLO DATE: 07/14/2013 : 1960 SEX: F SITE: [facility] ORDERED BY: Jl Blackmon MD INDICATION: Atrial fibrillation INTERPRETATION 1. The predominant rhythm during the 24 hours is normal sinus with a high rate of 125, a low rate of 47 and a mean heart rate of 66. The DC, QRS and QT intervals are normal. 2. A total of 2 premature ventricular contractions were seen in 24 hours, with no coupling or ventricular tachycardia. A 5-beat run of an accelerated ventricular rhythm at a rate of 56 was noted at 3:41 a.m. while the patient was asleep. This was asymptomatic. 3. A total of 14 PACs and 2 atrial couplets were noted in 24 hours, with no supraventricular tachycardia and no symptoms. 4. No significant bradycardia, pause or heart block was noted. 5. No symptoms were reported in the patient's diary. MD SWATHI Matute/ - PT NAME: TIMOTEO COSTELLO - cc: Jl Blackmon MD documented in this encounter Plan of Treatment Upcoming Encounters Date Type Department Care Team (Late st Contact Info) Description 11/24/2024 1:00 PM RN TRANSFER Procedure Surgical Procedure Visit [phone] Titus Vieyra MD [address] [facility] [address] [place], [place] [phone] documented as of this encounter Procedures Procedure Name Priority Date/Time Associated Diagnosis Comments XTRNL ECG REC<48 HRS RECORDING SCAN A/R R&I Routine 07/22/2013 1:07 PM CDT AF (atrial fibrillation) (HCC) documented in this encounter Results * ECG MONITOR/24 HRS,COMPLETE (07/22/2013 1:07 PM CDT) Narrative Transcriptions Generated, Interface - 07/19/2013 6:50 AM CDT Horace Lui - 07/16/2013 4:02 PM CDT HOLTER MONITOR REPORT NAME: TIMOTEO COSTELLO DATE: 07/14/2013 : 1960 SEX: F SITE: CARDIOLOGY-[facility] ORDERED BY: Jl Blackmon MD INDICATION: Atrial fibrillation INTERPRETATION 1. The predominant rhythm during the 24 hours is normal sinus with a highrate of 125, a low rate of 47 and a mean heart rate of 66. The DC, QRS andQT intervals are normal. 2. A total of 2 premature ventricular contractions were seen in 24 hours,with no coupling or ventricular tachycardia. A 5-beat run of anaccelerated ventricular rhythm at a rate of 56 was noted at 3:41 a.m.while the patient was asleep. This was asymptomatic. 3. A total of 14 PACs and 2 atrial couplets were noted in 24 hours, withno supraventricular tachycardia and no symptoms. 4. No significant bradycardia, pause or heart block was noted. 5. No symptoms were reported in the patient's diary. Horace Lui MD DK/ - PT NAME: TIMOTEO COSTELLO cc: Jl Blackmon MD Generated, Interface - 07/22/2013 1:04 PM CDT [facility] documented in this encounter Visit Diagnoses Diagnosis AF (atrial fibrillation) (HCC)- Primary Atrial fibrillation documented in this encounter Care Teams Compensation Analyst Relationship Specialty Start Date End Date Jeison Orozco MD PCP - General 12/25/01 08/12/23 documented as of this encounter
--- OUTSIDE RECORDS SUMMARY | 2024-11-07 07:03 | XMS_ITS | Encounter Summary ---
Author Organization [facility] Address [address] [place] [address] Care Team Providers Care Health Club Manager Name Role Phone Jeison Orozco MD Primary Care Provider Unav ailable Reason for Visit * Reason Comments Pain sinus/facial, neck Cough Encounter Details Date Type Department Care Team (Late st Contact Info) Description 07/24/2012 11:15 AM CDT Office Visit Internal Medicine - [facility] [address] [facility] [address] [place], [place] [phone] Qian Mathur MD [address] [facility] [address] [place], [place] [phone] Acute sinus infection (Primary Dx) Social History Tobacco Use Types [...] Sign Reading Time Taken Comments Blood Pressure 110/76 07/24/2012 11:17 AM CDT Pulse 68 07/24/2012 11:17 AM CDT Temperature 36.5 ??C (97.7 ??F) 07/24/2012 11:17 AM C DT Respiratory Rate - - Oxygen Saturation - - Inhaled Oxygen Concentration - - Weight 69.4 kg (153 lb) 07/24/2012 11:17 AM CDT Height 168.3 cm (5' 6.25 ) 07/24/2012 11:17 AM C DT Body Mass Index 24.51 07/24/2012 11:17 AM CDT documented in this encounter Progress Notes * Qian Mathur MD - 07/24/2012 11:28 AM CDT Patient presents with: Pain - sinus/facial, neck Cough Pt is c/o sinus congestion for 5d, getting worse (+)postnasal drainage. Occasional cough w/ scant sputum production. No fevers/chills. no ear pain. No CP/SOB. No nausea/vomiting/diarrhea/constipation/BRBPR/melena Remedies tried at home: OTC decongestant ROS as above, otherwise reviewed across 10 categories and negative HISTORY: No past medical history on file. Past Surgical History REMOVAL OF COCCYX OTHER SURGICAL HISTORY Comment facial plastic surgery No family history on file. Smoking Status: Former Smoker Packs/Day: Years: 10 Smokeless Status: Never Used Comment: quit 21 yrs ago Alcohol Use: Yes Comment: socially Current Outpatient Prescriptions: Multiple Vitamins-Minerals (ONE DAILY COMPLETE) Oral Tab Take 1 Tab by mouth daily. Disp: Rfl: Ibuprofen 200 MG Oral Tab 1 TABLET EVERY 4 TO 6 HOURS NEEDED Disp: Rfl: Penicillins Rash PE Blood pressure 110/76, pulse 68, temperature 97.7 ??F (36.5 ??C), temperature source Oral, height 5' 6.25 , weight 153 lb. Genl: NAD HEENT: posterior pharynx clear ears TM normal b/l nares congested Neck: no LAD Lungs CTA b/l Impression/Plan: Acute Sinusitis 1. Zpak - take as instructed - discussed side effects. 2. OTC mucinex and nasal saline 3. Rest, push fluids, OTC tylenol/ibuprofen as needed. Call if symptoms persist, change, or worsen See orders All of pt's questions were answered today documented in this encounter Plan of Treatment Upcoming Encounters Date Type Department Care Team (Late st Contact Info) Description 11/24/2024 1:00 PM BOOM BOSS Procedure Surgical Procedure Visit [phone] Titus Vieyra MD [address] [place] [address] [address] [place] [address] Scheduled Orders Name Type Priority Associated Diagnoses Orde r Schedule OFFICE/OUTPT VISIT,EST,LEVL III PROCEDURES Routine Acute sinus infection Ordered: 07/24/2012 documented as of this encounter Visit Diagnoses Diagnosis Acute sinus infection- Primary Acute sinusitis, unspecified documented in this encounter Care Teams Health Club Manager Relationship Specialty Start Date End Date Jeison Orozco MD PCP - General 12/25/01 08/12/23 documented as of this encounter
--- OUTSIDE RECORDS SUMMARY | 2024-11-07 07:03 | XMS_ITS | Encounter Summary ---
Author Organization [facility] Address [address] [place] [address] Care Team Providers Care Neon Sign Installer Name Role Phone Jeison Orozco MD Primary Care Provider Unav ailable Reason for Visit * Nuclear Study (Urgent) - Closed Specialty Diagnoses / Procedures Referred By Delmi zee Referred To Contact Nuclear Medicine Diagnoses Chest pain A-fib (HCC) Procedures CARD NUC EXERCISE STRESS (REST/EXER) HT MUSCLE IMAGE SPECT, Jl Gaspar MD [address] [address] Referral ID Status Reason Start Date Expiration Date Visits Re quested Visits Authorized [id number] Closed 07/28/2013 10/26/2013 1 1 Encounter Details Date Type Department Care Team (Late st Contact Info) Description 08/12/2013 7:00 AM CDT Office Visit Cardiology - [address] [place], [place] [id number] Chest pain (Primary Dx); A-fib (HCC) Social History Tobacco Use Types Packs/Day [...] encounter Progress Notes * Generated, Interface - 09/03/2013 8:39 AM CST UCT DESIGNER * Arely Chang Rn - 08/17/2013 9:02 AM CDTQuick Note: [phone] Results reviewed with patient with instructions to follow up with Dr Mathur for further evaluation of a CT chest and a mammography. She verbalizes understanding. * Qian Mathur MD - 08/16/2013 12:50 PM CDTQuick Note: Please make appt to discuss abn seen on nuclear stress test * Jl Blackmon MD - 08/13/2013 6:54 PM CDTQuick Note: Normal stress test. The scan showed a spot outside the heart. The significance of this is unclear. I recommend a CT chest with contrast to better evaluate this. If the CT is negative, she should have a mammogram if not recently completed. Cardiology f/u will otherwise be planned in 3 mos, unless CP worsens in the interim. documented in this encounter Procedure Notes * [facility], Interface - 09/06/2013 9:17 AM CSTAssociated Order(s): CARDIAC STRESS TST,COMPLETE UCT DESIGNER * [facility], Interface - 08/13/2013 6:59 AM CDTAssociated Order(s): CARDIAC STRESS TST,COMPLETE * Jl Blackmon MD - 08/12/2013 5:01 PM CDTAssociated Order(s): HT MUSCLE IMAGE SPECT, MULT NUCLEAR PERFUSION TEST (EXERCISE) NAME: TIMOTEO COSTELLON: [id number] DATE: 08/12/2013 : 1960 SEX: F [facility] [place] ORDERED BY: Jl Blackmon MD INDICATION: Chest pain, atrial fibrillation EXERCISE DATA Protocol: Dano Exercise Time: 10:01 Minutes METs: 10.1 Peak Heart Rate: 155 % Maximum: 93 Double Product: 28,210 HEMODYNAMIC DATA: (Heart Rate) Blood Pressure Sitting: (65) 128/72 Standing: (75) 120/72 Stage I: (95) 128/76 Stage II: (113) 138/76 Stage III: (130) 160/74 Stage IV: (155) 182/72 Stage V: Recovery: (80) 128/68 ELECTROCARDIOGRAPHIC DATA: The EKG portion of the test was supervised and interpreted by Dr. Blackmon. The resting EKG demonstrates NSR at a rate of 61 beats per minute and nonspecific T abnormality. During exercise, there were no significant EKG changes. The patient exhibited normal functional aerobicexercise capacity at adequate cardiac workload with normal blood pressure response. The patient wasasymptomatic during the test. The EKG revealed no arrhythmia. The stress EKG is negative for ST segment depression. RESTING SPECT STUDY: While at rest, the patient received 8 mCi technetium 99m sestamibi intravenously, and gamma camera imaging was performed approximately 30 minutes later using 180 degree SPECT technique. STRESS SPECT STUDY: The patient exercised on a treadmill. Ninety seconds prior to termination of exercise, the patient received 24 mCi technetium 99m sestamibi intravenously, and gamma camera imagingwas performed approximately 30 minutes later using 180 degree SPECT technique with wall motion and ejection fraction analysis. TOMOGRAPHIC RESULTS: The images are compromised by intense splanchnic activity adjacent to the inferior wall. Within the confines of this limitation, no perfusion defects are visualized. Uptake on the rest and stress images appears uniform. There is uniform thickening and contractility on gated analysis. The quantitative ejection fraction is normal, calculated at 68%. Incidentally noted on the rotating planar images is the presence of focal extracardiac activity, in the left upper thorax. IMPRESSION 1. Normal nuclear perfusion scan. 2. No scan evidence of myocardial ischemia. The images are compromised by intense splanchnic activity, adjacent to the inferior wall. 3. No scan evidence of myocardial infarction. 4. Normal regional wall motion on gated analysis. 5. Normal quantitative ejection fraction of 68%. 6. Intense focal extracardiac activity is noted in the left upper thorax. Consider further imaging of this finding such as mammography and/or chest CT, as clinically warranted. Jl Blackmon MD MR/ - PT NAME: TIMOTEO COSTELLO - cc: Jl Blackmon MD documented in this encounter Plan of Treatment Upcoming Encounters Date Type Department Care Team (Late st Contact Info) Description 11/24/2024 1:00 PM PRODUCT DESIGNER Procedure Surgical Procedure Visit [phone] Titus Vieyra MD [address] [place] [address] [address] [place] [address] Pending Results Name Type Priority Associated Diagnoses Date /Time CARD NUC EXERCISE STRESS (REST/EXER) Cardiology Routine Chest pain A-fib (HCC) 08/12/2013 7:26 AM CDT documented as of this encounter Procedures Procedure Name Priority Date/Time Associated Diagnosis Comments CV STRS TST XERS&/OR RX CONT ECG W/SI&R Routine 09/06/2013 9:22 AM PRODUCT DESIGNER Chest pain A-fib (HCC) MYOCARDIAL SPECT MULTIPLE STUDIES Routine 08/13/2013 6:21 PM CDT Chest pain A-fib (HCC) TECHNETIUM TC99MM SESTAMIBI,IV,UP TO 40MILLICURIES Routine 08/12/2013 8:54 AM CDT Chest pain A-fib (HCC) documented in this encounter Results * CARDIAC STRESS TST,COMPLETE (09/06/2013 9:22 AM PRODUCT DESIGNER) Narrative Transcriptions Generated, Interface - 08/13/2013 6:59 AM CDT Generated, Interface - 09/06/2013 9:17 AM CST Legal Transcriptionist PROFESSIONAL FEES-NE IMARY CARE * HT MUSCLE IMAGE SPECT, MULT (08/13/2013 6:21 PM CDT) Narrative Transcriptions Jl Blackmon MD - 08/12/2013 5:01 PM CDT NUCLEAR PERFUSION TEST (EXERCISE) NAME: TIMOTEO COSTELLO DATE: 08/12/2013 : 1960 SEX: F SITE: C[facility]IOLOGY[facility] ORDERED BY: Jl Blackmon MD INDICATION: Chest pain, atrial fibrillation EXERCISE DATA Protocol: Dano Exercise Time: 10:01 Minutes METs: 10.1 Peak Heart Rate: 155 % Maximum: 93 Double Product: 28,210 HEMODYNAMIC DATA: (Heart Rate) Blood Pressure Sitting: (65) 128/72 Standing: (75) 120/72 Stage I: (95) 128/76 Stage II: (113) 138/76 Stage III: (130) 160/74 Stage IV: (155) 182/72 Stage V: Recovery: (80) 128/68 ELECTROCARDIOGRAPHIC DATA: The EKG portion of the test was supervised andinterpreted by Dr. Blackmon. The resting EKG demonstrates NSR at a rate of 61beats per minute and nonspecific T abnormality. During exercise, therewere no significant EKG changes. The patient exhibited normal functionalaerobic exercise capacity at adequate cardiac workload with normal bloodpressure response. The patient was asymptomatic during the test. The EKGrevealed no arrhythmia. The stress EKG is negative for ST segment depression. RESTING SPECT STUDY: While at rest, the patient received 8 mCi [id number] sestamibi intravenously, and gamma camera imaging was performedapproximately 30 minutes later using 180 degree SPECT technique. STRESS SPECT STUDY: The patient exercised on a treadmill. Ninety secondsprior to termination of exercise, the patient received 24 mCi fysigsaizo00y sestamibi intravenously, and gamma camera imaging was performedapproximately 30 minutes later using 180 degree SPECT technique with wallmotion and ejection fraction analysis. TOMOGRAPHIC RESULTS: The images are compromised by intense splanchnicactivity adjacent to the inferior wall. Within the confines of thislimitation, no perfusion defects are visualized. Uptake on the rest andstress images appears uniform. There is uniform thickening andcontractility on gated analysis. The quantitative ejection fraction isnormal, calculated at 68%. Incidentally noted on the rotating planarimages is the presence of focal extracardiac activity, in the left upperthorax. IMPRESSION 1. Normal nuclear perfusion scan. 2. No scan evidence of myocardial ischemia. The images are compromised byintense splanchnic activity, adjacent to the inferior wall. 3. No scan evidence of myocardial infarction. 4. Normal regional wall motion on gated analysis. 5. Normal quantitative ejection fraction of 68%. 6. Intense focal extracardiac activity is noted in the left upper thorax.Consider further imaging of this finding such as mammography and/or chestCT, as clinically warranted. Jl Blackmon MD MR/ - PT NAME: TIMOTEO COSTELLO Kel cc: Jl Blackmon MD Legal Transcriptionist CARDIOLOGY documented in this encounter Visit Diagnoses Diagnosis Chest pain- Primary Chest pain, unspecified A-fib (HCC) Atrial fibrillation documented in this encounter Care Teams Neon Sign Installer Relationship Specialty Start Date End Date Jeison Orozco MD PCP - General 12/25/01 08/12/23 documented as of this encounter
--- OUTSIDE RECORDS SUMMARY | 2024-11-07 07:04 | XMS_ITS | Encounter Summary ---
Author Organization [facility] Address [address] [place] [address] Care Team Providers Care Retail Supervisor Name Role Phone Jeison Orozco MD Primary Care Provider Unav ailable Reason for Visit * Reason Comments Immunization/Injection TWINRIX Encounter Details Date Type Department Care Team (Latest Contact Info) Description 03/29/2011 10:00 AM CDT Nurse Only - Partial Visit Med/Peds - [facility] [address] [place], [place] [id number] Vacc for viral hepatitis (Primary Dx) Social History Tobacco Use Types Packs/Day Years Used Date Smoking Tobacco: Former Cigarettes Comments:quit 21 yrs ago Alcohol Use Standard Drinks/Week Comments Yes 0 (1 standard drink = 0.6 oz pur e alcohol) socially Sex and Gender Information Value Date Recorded Sex Assigned at Not on file Gender Identity Female 07/03/2021 5:51 PM CDT Sexual Orientation Not on file documented as of this encounter Progress Notes * Epic, User - 04/03/2011 12:59 PM CDT documented in this encounter Plan of Treatment Upcoming Encounters Date Type Department Care Team (Late st Contact Info) Description 11/24/2024 1:00 PM DIRECTOR OF PATIENT CARE Procedure Surgical Procedure Visit [phone] Titus Vieyra MD [address] [place] [address] [address] [place] [address] documented as of this encounter Visit Diagnoses Diagnosis Need for prophylactic vaccination and inoculation against viral hepatitis- Primary documented in this encounter Care Teams Retail Supervisor Relationship Specialty Start Date End Date Jeison Orozco MD PCP - General 12/25/01 08/12/23 documented as of this encounter
--- OUTSIDE RECORDS SUMMARY | 2024-11-07 07:04 | XMS_ITS | Encounter Summary ---
Author Organization [facility] Address [address] [place] [address] Care Team Providers Care Camera Control Operator Name Role Phone Jeison Orozco MD Primary Care Provider Unav ailable Reason for Visit * Reason Onset Date Comments Biopsy Results 03/08/2011 Encounter Details Date Type Department Care Team ([facility] st Contact Info) Description 03/08/2011 Telephone Dermatology - [facility] [address] [facility] [address] [place] [address] Niki Soto MD [address] [facility] [address] [place] [address] Biopsy Results Social History Tobacco Use Types Packs/Day [...] as of this encounter Progress Notes * Thierry Her - 03/08/2011 10:25 AM CDT Results given to patient, patient verbalizes understanding. Site: L upper back Diagnosis: Solar lentigo Treatment: none Site: R abdomen Diagnosis: Spongiotic dermatitis Treatment: Will f/u 03/19/11 documented in this encounter Plan of Treatment Upcoming Encounters Date Type Department Care Team (Late st Contact Info) Description 11/24/2024 1:00 PM ELASTIC ATTACHER ZIGZAG Procedure Surgical Procedure Visit [phone] Titus Vieyra MD [address] [place] [address] [address] [place] [address] documented as of this encounter Visit Diagnoses Not on filedocumented in this encounter Care Teams Camera Control Operator Relationship Specialty Start Date End Date Jeison Orozco MD PCP - General 12/25/01 08/12/23 documented as of this encounter
--- OUTSIDE RECORDS SUMMARY | 2024-11-07 07:04 | XMS_ITS | Encounter Summary ---
Author Organization [facility] Address [address] [place] [address] Care Team Providers Care Tier Truck Driver Name Role Phone Jeison Orozco MD Primary Care Provider Unav ailable Reason for Visit * Reason Onset Date Comments Patient Question 02/19/2011 Encounter Details Date Type Department Care Team (Late st Contact Info) Description 02/19/2011 Telephone Internal Medicine - [facility] [address] [facility] [address] [place], [place] [phone] Qian Mathur MD [address] [facility] [address] [place], [place] [phone] Patient Question Social History Tobacco Use Types [...] as of this encounter Progress Notes * Aria Disla - 02/20/2011 12:02 PM CDT Appointment made. * Qian Mathur MD - 02/20/2011 9:55 AM CDT Make appt for travel visit * Meera Ulloa - 02/19/2011 1:19 PM CDT Patient is leaving for [place] and [place] on March 29. Patient called the [facility] Department to see what shots or medications are required. [facility] states patient needs yellow fever injection - required. [facility] recommends Hep A, Hep B , typhoid injection and malaria prescription. Patient wants to know if she can get a prescription for the malaria. Patient will get shots done at the [facility]. Send RX to [place]. Call patient when done. Patient last seen 10/2010 documented in this encounter Plan of Treatment Upcoming Encounters Date Type Department Care Team (Late st Contact Info) Description 11/24/2024 1:00 PM DOOR CLAMP OPERATOR Procedure Surgical Procedure Visit [phone] Titus Vieyra MD [address] [place] [address] [address] [place] [address] documented as of this encounter Visit Diagnoses Not on filedocumented in this encounter Care Teams Tier Truck Driver Relationship Specialty Start Date End Date Jeison Orozco MD PCP - General 12/25/01 08/12/23 documented as of this encounter
--- OUTSIDE RECORDS SUMMARY | 2024-11-07 07:04 | XMS_ITS | Encounter Summary ---
Author Organization [facility] Address [address] [place] [address] Care Team Providers Care Printing Estimator Name Role Phone Jeison Orozco MD Primary Care Provider Unav ailable Reason for Visit * Reason Comments Nurse Visit twinrix #3 - Dr. Marylin gonsalves patient Encounter Details Date Type Department Care Team (Latest Contact Info) Description 10/15/2011 8:00 AM ASTRONOMY PROFESSOR Nurse Only - Partial Visit Med/Peds - [facility] [address] [place] [address] Vacc for viral hepatitis (Primary Dx) Social [...] encounter Progress Notes * Epic, User - 10/22/2011 2:03 PM ASTRONOMY PROFESSOR ONOMY PROFESSOR documented in this encounter Plan of Treatment Upcoming Encounters Date Type Department Care Team (Late st Contact Info) Description 11/24/2024 1:00 PM ASTRONOMY PROFESSOR Procedure Surgical Procedure Visit [phone] Titus Vieyra MD [address] [place], [place] [address] [address] [place] [address] Scheduled Orders Name Type Priority Associated Diagnoses Orde r Schedule IMMUNIZATION ADMINISTRATION PROCEDURES Routine Vacc for viral hepatitis Ordered: 10/15/2011 documented as of this encounter Visit Diagnoses Diagnosis Need for prophylactic vaccination and inoculation against viral hepatitis- Primary documented in this encounter Care Teams Printing Estimator Relationship Specialty Start Date End Date Jeison Orozco MD PCP - General 12/25/01 08/12/23 documented as of this encounter
--- OUTSIDE RECORDS SUMMARY | 2024-11-07 07:04 | XMS_ITS | Encounter Summary ---
Author Organization [facility] Address [address] [place] [address] Care Team Providers Care Shoe Trimmer Name Role Phone Sona Saenz MD Primary Care Provider [phone] Encounter Details Date Type Department Care Team ([facility] Contact Info) Description 10/21/2024 Telephone [facility] [place] [address] [place] [address] [address] [place] [address] Danna Bean RN Social History Tobacco Use Types Packs/Day Years Used Date Smoking Tobacco: Former Cigarettes Smokeless Tobacco: Never Alcohol Use Standard Drinks/Week Comments Yes 2 (1 standard drink = 0.6 oz pur e alcohol) Utilities Answer Date Recorded In the past 12 months has e electric, gas, oil, or water company threatened to shut off services in your home? No 06/06/2024 PHQ-2 Answer Date Recorded Initial depression screening score: 0 06/08/2024 Social Connections Answer Date Recorded How often do you see or talk to people that you care about and feel close to? (For example: talking to friends on the phone, visiting friends or family, going to worship or club meetings) 5 or more times a week 06/06/2024 Alcohol Use Answer Date Recorded Audit C Total Score 4 06/06/2024 Financial Resource Strain Answer Date R ecorded In the past year, have you o r any family members you live with been unable to get any of the following when it was really needed? Check all that apply. None 06/06/2024 Food Insecurity Answer Date Recorded Within the [...] No 06/06/2024 documented as of this encounter Miscellaneous Notes * Telephone Encounter - Makenzie Ortiz 10/21/2024 4:00 PM CST Patient is schedule for November [address] Melton ANESTHESIOLOGY * Telephone Encounter - Danna Bean RN - 10/21/2024 12:16 PM RN ANESTHESIOLOGY Spoke with pt and results of monitor reviewed. Pt states she continues to have palpitations daily and they are bothersome to her. Advised will ask staff to call her for an earlier apt. Pt v/u and agrees with plan. ANESTHESIOLOGY * Telephone Encounter - Danna Bean RN - 10/21/2024 12:16 PM RN ANESTHESIOLOGY ----- Message from Cm Melton MD sent at 10/21/2024 11:50 AM RN ANESTHESIOLOGY ----- palps probably from PVCs. She's not having afib. HRs are a little blunted on current toprol dose Will discuss options in nov 2024. We can get more aggressive with toprol but she might need a pacerif we make her too slow. CPM for now ----- Message ----- From: Danna Bean RN Sent: 10/21/2024 11:17 AM RN ANESTHESIOLOGY To: Cm Melton MD Repeat holtor after c/o palps to assess PVC's. Ov in Nov ANESTHESIOLOGY documented in this encounter Plan of Treatment Upcoming Encounters Date Type Department Care Team (Late st Contact Info) Description 11/09/2024 12:15 PM RN ANESTHESIOLOGY Office Visit [facility] [address] [place] [address] Cm Melton MD [address] [address] documented as of this encounter Visit Diagnoses Not on filedocumented in this encounter Care Teams Shoe Trimmer Relationship Specialty Start Date End Date Sona Saenz MD [address] [address] PCP - General Internal Medicine 01/09/24 documented as of this encounter
--- OUTSIDE RECORDS SUMMARY | 2024-11-07 07:04 | XMS_ITS | Encounter Summary ---
Author Organization [facility] Address [address] [place] [address] Care Team Providers Care Solid Tire Tuber Machine Operator Name Role Phone Sona Saenz MD Primary Care Provider [phone] Reason for Visit * Reason Comments Refill Request Encounter Details Date Type Department Care Team ([facility] st Contact Info) Description 10/01/2024 Refill [facility] [address] [place] [address] Cm Melton MD [address] [address] Refill Request Social History Tobacco Use Types Packs/Day Years Used Date Smoking Tobacco: Former Cigarettes Smokeless Tobacco: Never Alcohol Use Standard Drinks/Week Comments Yes 2 (1 standard drink = 0.6 oz pur e alcohol) Utilities Answer Date Recorded In the past 12 months has e [employer], gas, oil, or water COM [employer] threatened to shut off services in your [...] Dispensed Refills Start Date End Da te metoPROLOL succinate (TOPROL-XL) 25 MG 24 hr tablet TAKE 1 TABLET BY MOUTH DAILY 180 tablet 1 10/01/2024 10/11/2024 documented in this encounter Plan of Treatment Upcoming Encounters Date Type Department Care Team (Late st Contact Info) Description 11/09/2024 12:15 PM VOLUNTEER SERVICES ASSISTANT Office Visit [facility] [place] [address] [facility] [address] [place] [address] Cm Melton MD [address] [id number] documented as of this encounter Visit Diagnoses Not on filedocumented in this encounter Discontinued Medications Medication Sig Discontinue Reason Start Date End Da te metoPROLOL succinate (TOPROL-XL) 25 MG 24 hr tablet Take 25 mg by mouth in the morning and 25 mg in the evening. 10/01/2024 documented as of this encounter Care Teams Solid Tire Tuber Machine Operator Relationship Specialty Start Date End Date Sona Saenz MD [address] [facility] [address] [place] [address] PCP - General Internal Medicine 01/09/24 documented as of this encounter
--- OUTSIDE RECORDS SUMMARY | 2024-11-07 07:04 | XMS_ITS | Encounter Summary ---
Author Organization [facility] Address [address] [place] [address] Care Team Providers Care Hand Button Splitter Name Role Phone Jeison Orozco MD Primary Care Provider Unav ailable Reason for Visit * Reason Onset Date Comments Appt Request 08/31/2009 Encounter Details Date Type Department Care Team (Late st Contact Info) Description 08/31/2009 Telephone Dermatology - [facility] [address] [facility] [address] [place], [place] [phone] Maile Marroquin MD [address] [place] [address] Appt Request Social History Tobacco Use Types Packs/Day Years Used Date Smoking Tobacco: Never Assessed Sex and Gender Information Value Date Recorded Sex Assigned at Not on file Gender Identity Female 07/03/2021 5:51 PM CDT Sexual Orientation Not on file documented as of this encounter Progress Notes * Angélica Hollingswotrh - 08/31/2009 9:27 AM CST LUCILLE 09-16-08 Pt now 8 weeks post- full face lift. Pt has had dry skin in the creases by her nose, bilateral, for 2-3 months, (before the face-lift) Pt denies starting any new prescriptions, new makeups or soaps w/ in the past 2-3 months. These dry creases in the nasal folds cracked open from dryness and never healed. Pt has treated the areas w/ vaseline and Aloe products, which have not helped. Pt saw her plastic surgeon, Dr. Reyes in [place] this week who said these nasal fold dry areas are not from the face lift. Pt also has itchy patch on her left upper breast, by the cup-bra line, it has been itchy for 3+ weeks, no reddness, no pain, no new products used in this area, but pt recently began applying a prescription cream, name unknown, pt had from her PCP for dry patches on her legs, pt applied to her left breast, but it is still itchy. Appt given for 3:40pm today. ITY CONTROL SYSTEMS MANAGER * Angélica Hollingsworth - 08/31/2009 9:17 AM CSTPatient Call Back message copied by ANGÉLICA HOLLINGSWORTH on FriAug 31, 2009 9:17 AM ------ Message from: RUTHIE JETER Created: FriAug 30, 2009 1:48 PM Contact: WORK # [phone] [facility] 11-18-08 PT HAS BROKEN SKIN ON HER NOSE THAT WILL NOT HEAL FOR THE LAST 2 MONTHS. ALSO HAS HAD AN ITCH ON BREAST FOR APPROX 1 MONTH. DOES NOT WANT TO WAIT UNTIL END Sep, SHE IS ANXIOUS ABOUT BOTH ISSUES. TOLD HER SHE WOULD GET A CALL BACK ON . ITY CONTROL SYSTEMS MANAGER documented in this encounter Plan of Treatment Upcoming Encounters Date Type Department Care Team (Late st Contact Info) Description 11/24/2024 1:00 PM QUALITY CONTROL SYSTEMS MANAGER Procedure Surgical Procedure Visit [phone] Titus Vieyra MD [address] [place] [address] documented as of this encounter Visit Diagnoses Not on filedocumented in this encounter Care Teams Hand Button Splitter Relationship Specialty Start Date End Date Jeison Orozco MD PCP - General 12/25/01 08/12/23 documented as of this encounter
--- OUTSIDE RECORDS SUMMARY | 2024-11-07 07:04 | XMS_ITS | Encounter Summary ---
Author Organization [facility] Address [address] [place] [address] Care Team Providers Care Oracle Financials Developer Name Role Phone Sona Saenz MD Primary Care Provider Encounter Details Date Type Department Care Team (Late st Contact Info) Description 04/23/2004 Orders Only [facility] [address] [place] [address] Rizwan Howe MD [address] [facility] [address] [place], [place] [phone] SPRAIN LUMBOSACRAL; HYPERPOTASSEMIA Social History Tobacco Use Types Packs/Day Years Used Date Smoking Tobacco: Never Assessed Sex and Gender Information Value Date Recorded Sex Assigned at Not on file Gender Identity Female 07/03/2021 5:51 PM CDT Sexual Orientation Not on file documented as of this encounter Plan of Treatment Upcoming Encounters Date Type Department Care Team (Late st Contact Info) Description 11/24/2024 1:00 PM INWARD TOLL OPERATOR Procedure Surgical Procedure Visit [phone] Titus Vieyra MD [address] [place] [address] [address] [place], [place] [address] documented as of this encounter Procedures Procedure Name Priority Date/Time Associated Diagnosis Comments US RETROPERITONEAL REAL TIME W/IMAGE LIMITED Routine 04/25/2004 4:32 PM CDT SPRAIN LUMBOSACRAL Hyperpotassemia documented in this encounter Results * ECHO ABD RETROPERITNL LTD (04/25/2004 4:32 PM CDT) Anatomical Region Laterality Modality Abdomen Ultrasound Narrative 04/26/2004 10:27 AM CDT [id number] (home) ULTRASOUND OF KIDNEYS COMPARISON: ??None available INDICATION: ??Upper back pain FINDINGS: ??Ultrasound examination of the kidneys was performed with multiple static images obtained. The right kidney measures 11.7 cm in length and the left kidney measures 11.1 cm in length. ??Both demonstrate normal cortical thickness and echogenicity with some mild prominent cortical tissue on the left that likely represents a column of Cristobal. ??A small extrarenal pelvis is seen on the right. ??There is no evidence of hydronephrosis or nephrolithiasis. ??The urinary bladder is well distended without distinct focal abnormality and bilateral ureteral jets are appreciated. ?? IMPRESSION: ?? No evidence of distinct solid or cystic masses and there is no evidence of nephrolithiasis or obstructive uropathy. Rizwan Howe MD X-RAYS documented in this encounter Visit Diagnoses Diagnosis Sprain of lumbosacral (joint) (ligament) Hyperpotassemia documented in this encounter Additional Health Concerns Infection Onset Date Last Indicated Resolved Time R/O COVID19 05/03/2020 05/03/2020 05/06/2020 5:10 AM CDT documented as of this encounter Care Teams Oracle Financials Developer Relationship Specialty Start Date End Date Sona Saenz MD [address] [address] PCP - General Internal Medicine 06/07/24 documented as of this encounter
--- OUTSIDE RECORDS SUMMARY | 2024-11-07 07:04 | XMS_ITS | Clinical Summary ---
Author Organization [facility] Address [address] [place] [address] Care Team Providers Care Proposal Coordinator Name Role Phone Sona Saenz MD Primary Care Provider [phone] Allergies Active Allergy Reactions Criticality Noted Date Comments Penicillins RASH Medium 11/11/2007 Medications Medication Sig Dispensed Refills Start Date End Date Status propafenone (RYTHMOL SR) 225 MG 12 hr capsule Take 1 capsule by mouth in the morning and 1 capsule in the evening. 180 capsule 3 06/06/2024 Active dabigatran (PRADAXA) 150 MG Cap Take 1 capsule by mouth every 12 hours. 60 capsule 3 06/08/2024 Active metoPROLOL succinate (TOPROL-XL) 25 MG 24 hr tablet Take 1 tablet by mouth in the morning and 1 tablet in the evening. 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 termination clerk current use of anticoagulant Dyspnea on exertion 03/20/2023 Paroxysmal atrial fibrillation (CMD) 03/18/2023 S/P ablation of atrial fibrillation 03/18/2023 Overview (03/18/2023): afib ablation 2013 ([facility]) Palpitations 03/18/2023 STAR (obstructive sleep apnea) 03/18/2023 Resolved Problems Problem Noted Date Diagnosed Date Resolved Date Atrial fibrillation (CMD) 06/06/2024 Encounters Date Type Department Care Team Description 11/03/2024 Clinical Documentation [facility] [address] [place] [phone] Danna Bean, RN 11/03/2024 Telephone [facility] [address] [place] [address] Cm Melton MD 10/21/2024 Telephone [facility] [address] [place] [address] Danna Bean, CASSIE 10/16/2024 External Record [facility] [address] [place] [address] [place] [address] Provider, Outside 10/14/2024 10:00 AM WOOL SORTER Ancillary Procedure [facility] [id number] [facility] [address] [place] [phone] Cm Melton MD Paroxysmal atrial fibrillation (CMD); S/P ablation of atrial fibrillation; Palpitations 10/11/2024 Telephone [facility] [address] [place] [address] Cm Melton MD Triage (PVC palaptions) 10/01/2024 Refill [facility] [address] [place] [phone] Cm Melton MD Refill Request 09/09/2024 Telephone [facility] [address] [place] [phone] Danna Bean RN Condition (PVC) 08/30/2024 Telephone [facility] [address] [place] [address] Cm Melton MD 08/24/2024 2:00 PM CDT Ancillary Procedure [facility] [address] [place] [address] [place] [address] Cm Melton MD Palpitations; Paroxysmal atrial fibrillation (CMD) 08/23/2024 Telephone [facility] [address] [place] [phone] Cm Melton MD from Last 3 Months Medical History Medical History Date Comments A-fib (CMD) Social History Tobacco Use Types Packs/Day Years Used Date Smoking Tobacco: Former Cigarettes Smokeless Tobacco: Never Tobacco Cessation:Counseling Given: Not Answered Alcohol Use Standard Drinks/Week Comments Yes 2 (1 standard drink = 0.6 oz pur e alcohol) Utilities Answer Date Recorded In the past 12 months has [employer], gas, oil, or water [employer] threatened to shut off services in your home? No 06/06/2024 PHQ-2 Answer Date Recorded Initial depression screening score: 0 06/08/2024 Social Connections Answer Date Recorded How often do you see or talk to people that you care about and feel close to? (For example: talking to friends on the phone, visiting friends or family, going to restorationist or club meetings) 5 or more times [...] file Not on file Not on file Obstetrics History Last Filed Vital Signs Vital Sign Reading Time Taken Comments Blood Pressure 120/70 06/08/2024 8:46 AM CDT Pulse 61 06/08/2024 8:46 AM CDT Temperature 36.7 ??C (98.1 ??F) 06/06/2024 3:21 PM CD T Respiratory Rate 16 06/06/2024 3:21 PM CDT Oxygen Saturation 98% 06/08/2024 8:46 AM CDT Inhaled Oxygen Concentration - - Weight 70 kg (154 lb 5.2 oz) 06/08/2024 8:46 AM CDT Height 167.6 cm (5' 6 ) 06/08/2024 8:46 AM CDT Body Mass Index 24.91 06/08/2024 8:46 AM CDT Plan of Treatment Upcoming Encounters Date Type Department Care Team (Late st Contact Info) Description 11/09/2024 12:15 PM WOOL SORTER Office Visit [facility] [phone] [place] [address] [place] [address] Cm Melton MD [address] [address] Health Maintenance Due Date Last Done Comments CT Colonography 2003 Cologuard 2003 Colonoscopy 2003 Colorectal Cancer Screen 2003 Fecal Occult Blood 2003 Sigmoidoscopy 2003 Hepatitis C Screening 2009 DTaP/Tdap/Td Vaccine (2 - Td or Tdap) 02/25/2021 02/25/2011 Traditional Medicare- Medicare Wellness Visit 11/27/2023 COVID-19 Vaccine ( season) 2024 10/08/2021, 01/25/2021 Influenza Vaccine (#1) 2024 , 09/02/2022, 08/09/2021, Additional history exists Depression Screening 06/08/2025 06/08/2024 Breast Cancer Screening 01/08/2026 01/09/20 24, 12/09/2022, 11/08/2021, Additional history exists Hepatitis B Vaccine (For Physician/APC Discussion) Completed 10/15/2011, 03/29/2011, 02/25/2011 Pneumococcal Vaccine 65+ Completed 08/04/2023 Osteoporosis Screening Completed 12/10/2023, 2019 Shingles Vaccine Completed 08/16/2024, 04/14/2024 HPV Vaccine Aged Out No longer eligi ble based on patient's age to complete this topic Meningococcal Vaccine Aged Out No william rebeca eligible based on patient's age to complete this topic Procedures Procedure Name Priority Date/Time Associated Diagnosis Comments HOLTER MONITOR Routine 10/14/2024 10:13 AM WOOL SORTER Paroxysmal atrial fibrillation (CMD) S/P ablation of atrial fibrillation Palpitations HOLTER MONITOR Routine 08/24/2024 1:46 PM CDT Palpitations Paroxysmal atrial fibrillation (CMD) MAMMO SCREENING BILATERAL W YASMIN Routine 01/09/2024 8:41 AM CDT Encounter for screening mammogram for malignant neoplasm of breast BD DEXA AXIAL SKELETON Routine 12/10/2023 10:40 AM WOOL SORTER Osteoporosis screening from Last 3 Months or Most Recently Relevant to Health Maintenance Results * HOLTER MONITOR (10/14/2024 10:13 AM WOOL SORTER) 10/14/2024 10:3 1 AM WOOL SORTER Narrative [facility] - 10/19/2024 8:31 PM WOOL SORTER 24 hour holter Results: Sinus throughout, average HR 59 bpm. HR range was 46 to 82 bpm. No pauses. Rare insig atrial ectopy 0.1%. ??Five runs of atach, longest 9 beats. ??No afib. Mild PVCs 4%. ??No runs of NSVT. Yassine DEVI Cm Melton MD [employer] Performing Organization Address [facility] Co de Phone Number [facility] * HOLTER MONITOR (08/24/2024 1:46 PM CDT) 08/24/2024 9:48 AM CDT Narrative [facility] - 09/08/2024 5:16 PM WOOL SORTER 48 hour holter Results: Sinus throughout, average HR was 59 bpm. HR range was 49 to 84 bpm. No pauses. Rare insig atrial ectopy <0.1%. ?? 2 runs of atach, longest 7 beats. ??No afib. Rare to mild PVCs 2.5%. ??no NSVT. Yassine DEVI Cm Melton MD [employer] Performing Organization Address [facility] Co de Phone Number [facility] * MAMMO SCREENING BILATERAL W YASMIN (01/09/2024 8:41 AM CDT) Anatomical Region Laterality Modality Breast Bilateral Mammography 01/09/2024 8:41 AM CDT Impressions 01/09/2024 9:19 AM CDT MAMMOGRAPHY ??NEGATIVE There is no mammographic evidence of malignancy. A 1 year screening mammogram is recommended. ?? MAMMOGRAPHY BI-RADS: 1 NEGATIVE Electronically Signed by: Shelia Rene M.D. ? [email or web address]:01/09/2024 09:19:38 ?? letter sent: Normal Single Exam Narrative 01/09/2024 9:19 AM CDT #[id number] - MAMMO SCREENING BILATERAL W YASMIN BILATERAL DIGITAL SCREENING MAMMOGRAM 3D/2D WITH CAD: 01/09/2024 CLINICAL HISTORY:Routine annual screening mammogram - tomosynthesis. ?? COMPARISON: Comparison is made to exams dated: 12/09/2022 mammogram, 11/08/2021 mammogram, 04/21/2020 mammogram, 12/18/2016 mammogram, and 11/17/2015 mammogram - [facility]. ?? BREAST COMPOSITION: There are scattered fibroglandular elements (ACR Breast Composition Category B) in both breasts. ?? [employer] Breast Composition Categories ??A [...] no significant interval change. Procedure Note Shelia Rene MD - 01/09/2024 #[id number] - MAMMO SCREENING BILATERAL W YASMIN BILATERAL DIGITAL SCREENING MAMMOGRAM 3D/2D WITH CAD: 01/09/2024 CLINICAL HISTORY:Routine annual screening mammogram - tomosynthesis. COMPARISON: Comparison is made to exams dated: 12/09/2022 mammogram, 11/08/2021mammogram, 04/21/2020 mammogram, 12/18/2016 mammogram, and 11/17/2015mammogram - [facility]. BREAST COMPOSITION: There are scattered fibroglandular elements (ACRBreast Composition Category B) in both breasts. [employer] Breast Composition Categories A [...] BI-RADS: 1 NEGATIVE Electronically Signed by: Shelia Rene M.D. [email or web address]/[email or web address]:01/09/2024 09:19:38 letter sent: Normal Single Exam Marissa Herrera MD IMG BI PROCEDURES * DEXA SCAN AXIAL SKELETON (12/10/2023 10:40 AM WOOL SORTER) Anatomical Region Laterality Modality Bone Density Dual-energy X-ra y Absorptiometry 12/10/2023 11:1 4 AM WOOL SORTER Impressions 12/10/2023 11:15 AM WOOL SORTER Bone mineral density is in the osteopenia [...] or more fragility fractures. Electronically Signed by: SHELIA RENE M.D. Signed on: 12/10/2023 11:15 AM Workstation ID: [id number] Narrative 12/10/2023 11:15 AM WOOL SORTER EXAM: BD DEXA AXIAL SKELETON CLINICAL INDICATION: [...] in BMD with a 95% confidence is ??0.201919 gm/cm2 at the total hip, 0.117679 gm/cm2 at the femoral neck and 0.523830 gm/cm2 at the 1/3 radius. Procedure Note Shelia Rene MD - 12/10/2023 EXAM: BD DEXA AXIAL [...] change in BMD with a 95%confidence is 0.549266 gm/cm2 at the total hip, 0.399752 gm/cm2 at the femoralneck and 0.998471 gm/cm2 at the 1/3 radius. IMPRESSION: Bone mineral density is in the osteopenia category. See above. Fracture risk estimated using the FRAX calculator : The [id number] risk for a major osteoporotic fracture is [...] or more fragility fractures. Electronically Signed by: SHELIA RENE M.D. Signed on: 12/10/2023 11:15 AM Workstation ID: [id number] Marissa Herrera MD IMG DXA PROCEDURES from Last 3 Months or Most Recently Relevant to Health Maintenance Care Teams Proposal Coordinator Relationship Specialty Start Date End Date Sona Saenz MD [address] [address] PCP - General Internal Medicine 01/09/24
--- OUTSIDE RECORDS SUMMARY | 2024-11-07 07:04 | XMS_ITS | Encounter Summary ---
Author Organization [facility] Address [address] [place] [address] Care Team Providers Care Bag Mender Name Role Phone Sona Saenz MD Primary Care Provider [phone] Encounter Details Date Type Department Care Team ([facility] Contact Info) Description 07/13/2024 Telephone [facility] [address] [place] [address] Otoniel Maldonado RN Social History Tobacco Use Types Packs/Day [...] phone, visiting friends or family, going to caodaism or club meetings) 5 or more times [...] encounter Miscellaneous Notes * Telephone Encounter - Otoniel Maldonado RN - 07/14/2024 10:05 AM CDT Called patient to inform per Dr. Melton propafenone is best option, would not like to start on amiodarone given age, and with not tolerating flecanide (nausea and headache) would recommend propafenone. Patient Verbalizes, understands and is agreeable to plan, will take propafenone 225 mg BID if symptoms occur will call office back * Telephone Encounter - Otoniel Maldonado RN - 07/13/2024 1:55 PM CDT Spoke to patient regarding Dr. Messer recommendation to start Flecanide. Patient reports she has tried this medication in the past and did not tolerate it. Patient could not state what her reaction was but would contact her sister to ask. * Telephone Encounter - Otoniel Maldonado RN - 07/13/2024 9:32 AM CDT Triage: Dr. Melton patient Reason for Call: Patient calls to report medication Propafenone 225 mg BID was giving her symptoms of Headache nausea, and dizziness. Patient reports she has stopped taking medication 3 days ago and reports her symptoms are gone. Patient has not taken any recent blood pressure or heart rate readings. Patient would like Dr. Melton to be aware of symptoms and that she has recently stopped medication with improvement of symptoms. Medications: Pradaxa Metoprolol Propafenone Plan: Will review with Dr. Melton and team and will reach back out to patient with further recommendations once received. Patient Verbalizes, understands and is agreeable to plan. documented in this encounter Plan of Treatment Upcoming Encounters Date Type Department Care Team (Late st Contact Info) Description 11/09/2024 12:15 PM SETTER COLD ROLLING MACHINE Office Visit [facility] [address] [place] [address] Cm Melton MD [address] [address] documented as of this encounter Visit Diagnoses Not on filedocumented in this encounter Care Teams Bag Mender Relationship Specialty Start Date End Date Sona Saenz MD [address] [address] PCP - General Internal Medicine 01/09/24 documented as of this encounter
--- OUTSIDE RECORDS SUMMARY | 2024-11-07 07:04 | XMS_ITS | Encounter Summary ---
Author Organization [facility] Address [address] [place] [address] Care Team Providers Care Bridge Instructor Name Role Phone Sona Saenz MD Primary Care Provider [phone] Encounter Details Date Type Department Care Team ([facility] st Contact Info) Description 08/30/2024 Telephone [facility] [place] [address] [place] [address] Cm Melton MD [address] [address] Social History Tobacco Use Types Packs/Day [...] phone, visiting friends or family, going to islam or club meetings) 5 or more times [...] encounter Miscellaneous Notes * Telephone Encounter - Danna Bean RN - 09/09/2024 8:54 AM CST See other encounter and update from Dr Melton KING MACHINE SET UP OPERATOR * Telephone Encounter - Danna Bean RN - 09/08/2024 3:22 PM CST Spoke wit pt and advised will call tomorrow with results. States since she received the shingles vaccine a few months ago her palpitations have increased. She notes some chest pressure at times with palpitations. Will review with Dr Melton and call with update. Pt v/u and agrees with plan. KING MACHINE SET UP OPERATOR * Telephone Encounter - Bhakti Sosa - 09/08/2024 2:40 PM CST Pt calling for holter results. She feels like she keeps going in and out of afib. [phone]. KING MACHINE SET UP OPERATOR * Telephone Encounter - Danna Bean RN - 08/31/2024 10:48 AM CHUCKING MACHINE SET UP OPERATOR Pt called and LM advising will call her when results are available. KING MACHINE SET UP OPERATOR * Telephone Encounter - Paulina Bennett - 08/30/2024 11:38 AM CST Patient is looking for the results of the Holter monitor she had put on 08/24/24 KING MACHINE SET UP OPERATOR documented in this encounter Plan of Treatment Upcoming Encounters Date Type Department Care Team (Late st Contact Info) Description 11/09/2024 12:15 PM CHUCKING MACHINE SET UP OPERATOR Office Visit [facility] [address] [place] [address] Cm Melton MD [address] [address] documented as of this encounter Visit Diagnoses Not on filedocumented in this encounter Care Teams Bridge Instructor Relationship Specialty Start Date End Date Sona Saenz MD [address] [place] [address] PCP - General Internal Medicine 01/09/24 documented as of this encounter
--- OUTSIDE RECORDS SUMMARY | 2024-11-07 07:04 | XMS_ITS | Encounter Summary ---
Author Organization [facility] Address [address] [place] [address] Care Team Providers Care Certified Control Systems Technician Name Role Phone Jeison Orozco MD Primary Care Provider Unav ailable Reason for Visit * Reason Onset Date Comments Sick Call 03/29/2011 Encounter Details Date Type Department Care Team (Late st Contact Info) Description 03/29/2011 Telephone Internal Medicine - [facility] [address] [facility] [address] [place], [place] [phone] Qian Mathur MD [address] [facility] [address] [place], [place] [phone] Sick Call Social History Tobacco Use Types [...] as of this encounter Progress Notes * Meera Ulloa - 03/29/2011 10:58 AM CDT Patient notified. * Luisana Rizvi - 03/29/2011 10:09 AM CDT States eye sclera is red and was crusted shut this am. Was around two people with pink eye. Discussed pink eye protocol documented in this encounter Plan of Treatment Upcoming Encounters Date Type Department Care Team (Late st Contact Info) Description 11/24/2024 1:00 PM THOROUGHBRED HORSE FARM MANAGER Procedure Surgical Procedure Visit [phone] Titus Vieyra MD [address] [place] [address] [address] [place] [address] documented as of this encounter Visit Diagnoses Not on filedocumented in this encounter Care Teams Certified Control Systems Technician Relationship Specialty Start Date End Date Jeison Orozco MD PCP - General 12/25/01 08/12/23 documented as of this encounter
--- OUTSIDE RECORDS SUMMARY | 2024-11-07 07:04 | XMS_ITS | Encounter Summary ---
Author Organization [facility] Address [address] [place] [address] Phone [email or web address] Care Team Providers Care Crop Specialist Name Role Phone Unavailable Primary Care Provider Unavailabl e Encounter Details Date Type Department Care Team (Late st Contact Info) Description 08/04/2020 11:00 AM CDT Immunization [address] [address] Rizwan Scanlon RN [address] [place] [address] Encounter for immunization Social History Tobacco Use Types Packs/Day Years Used Date Smoking Tobacco: Never Assessed Comments Unknown Sex and Gender Information Value Date Recorded Sex Assigned at Not on file Legal Sex Female 11:00 AM CDT Gender Identity Not on file Sexual Orientation Not on file documented as of this encounter Plan of Treatment Not on file documented as of this encounter Visit Diagnoses Diagnosis Encounter for immunization documented in this encounter
--- OUTSIDE RECORDS SUMMARY | 2024-11-07 07:04 | XMS_ITS | Encounter Summary ---
Author Organization [facility] Address [address] [place] [address] Care Team Providers Care Investigator Narcotics Name Role Phone Jeison Orozco MD Primary Care Provider Unav ailable Reason for Visit * Reason Comments Low Back Pain x 1day Encounter Details Date Type Department Care Team (Late st Contact Info) Description 03/22/2012 12:40 PM CDT Office Visit Express Care - [facility] [address] [facility] [address] [place] [address] Adult, [place] [facility] Dysuria; Lumbar strain Social History Tobacco Use Types Packs/Day Years [...] Sign Reading Time Taken Comments Blood Pressure 118/70 03/22/2012 12:45 PM CDT Pulse 72 03/22/2012 12:45 PM CDT Temperature 36.6 ??C (97.9 ??F) 03/22/2012 1 2:45 PM CDT Respiratory Rate - - Oxygen Saturation - - Inhaled Oxygen Concentration - - Weight 69.3 kg (152 lb 12.8 oz) 012 12:45 PM CDT Height - - Body Mass Index 24.66 09/28/2009 2:09 PM ENGINEERING 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 hip flex/ext No SLR UA: neg A/P #1 Lumbar Strain Ice, ROM exercises Rx Naprosyn 500 bid, Flexeril 10 half po tid prn F/U if symptoms change or if no better in 1-2 wks A/P#2 dysuria Check culture documented in this encounter Plan of Treatment Upcoming Encounters Date Type Department Care Team (Late st Contact Info) Description 11/24/2024 1:00 PM ENGINEERING FACULTY MEMBER Procedure Surgical Procedure Visit [phone] Titus Vieyra MD [address] [place] [address] [address] [place] [address] Scheduled Orders Name Type Priority Associated Diagnoses Orde r Schedule OFFICE/OUTPT VISIT,EST,LEVL III PROCEDURES Routine Dysuria Lumbar strain Ordered: 03/22/2012 documented as of this encounter Procedures Procedure Name Priority Date/Time Associated Diagnosis Comments URINE CULTURE, ROUTINE Routine 03/22/2012 2:30 PM CDT Dysuria URINE CULTURE RESULT 03/22/2012 2:30 PM CDT Dysuria URNLS DIP STICK/TABLET RGNT AUTO W/O MICROSCOPY Routine 03/22/2012 1:32 PM CDT documented in this encounter Results * RESULT (03/22/2012 2:30 PM CDT) RESULT 1 No growth [facility] 03/22/2012 2:30 PM CDT 03/24/2012 11:08 AM CDT Narrative [facility] - 03/25/2012 2:12 PM CDT [facility] ? SRC:URINE ? Read-only results ordered via the LCM/eLCM - see chart for additional updates or notes [employer] DO LABORATORY Performing Organization Address [facility] de Phone Number [facility] DEFAULT LAB Unknown Unknown [email or web address] [id number] * URINE CULTURE, ROUTINE (03/22/2012 2:30 PM CDT) URINE CULTURE, ROUTINE Final report [facility] Specimen of unknown material (specimen) 03/22/2012 2:30 PM CDT 03/24/2012 11:08 AM CDT Narrative [facility] - 03/25/2012 2:12 PM CDT [facility] ? [employer] DO MICROBIOLOGY ORDERAB LES Performing Organization Address [facility] de Phone Number [facility] DEFAULT [facility] Unknown Unknown [facility] [address] [place] [id number] * (ABNORMAL) URINALYSIS, AUTO, W/O SCOPE (03/22/2012 1:32 PM CDT) Glucose Urine normal Negative mg/dL Bilirubin Urine negative Negative Ketones Urine negative Negative mg/dL Specific Franklin 5(A) 1.005 - 1.030 Blood Urine negative Negative PH Urine 5 4.5 - 8.0 Protein Urine negative Negative/Tra ce mg/dL Urobilinogen Urine normal 0.0 - 1.9 mg/dL Nitrite Urine negative Negative Leukocyte Esterase Urine negative Negative APPEARANCE clear Clear Color Urine yellow Yellow Benny Camargo DO LABORATORY documented in this encounter Visit Diagnoses Diagnosis Dysuria Lumbar strain Sprain of lumbar region documented in this encounter Care Teams Investigator Narcotics Relationship Specialty Start Date End Date Jeison Orozco MD PCP - General 12/25/01 08/12/23 documented as of this encounter
--- OUTSIDE RECORDS SUMMARY | 2024-11-07 07:04 | XMS_ITS | Encounter Summary ---
Author Organization [facility] Address [address] [place] [address] Care Team Providers Care Vp Customer Development Name Role Phone Sona Saenz MD Primary Care Provider [phone] Encounter Details Date Type Department Care Team (Late st Contact Info) Description 05/23/2006 Orders Only [facility] [address] [place] [address] Otoniel Sauer MD [address] [phone] JOINT PAIN-PELVIS (Primary Dx) Social History Tobacco Use Types Packs/Day Years Used Date Smoking Tobacco: Never Assessed Sex and Gender Information Value Date Recorded Sex Assigned at Not on file Gender Identity Female 07/03/2021 5:51 PM CDT Sexual Orientation Not on file documented as of this encounter Plan of Treatment Upcoming Encounters Date Type Department Care Team (Late st Contact Info) Description 11/24/2024 1:00 PM CLAY 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 Procedure Surgical Procedure Visit [phone] Titus Vieyra MD [address] [place] [address] [address] [place] [address] documented as of this encounter Procedures Procedure Name Priority Date/Time Associated Diagnosis Comments RADEX SACRUM & COCCYX MINIMUM 2 VIEWS Routine 05/23/2006 10:39 AM CDT Joint Pain-Pelvis documented in this encounter Results * X-RAY SACRUM/COCCYX 2+ VW (05/23/2006 10:39 AM CDT) Anatomical Region Laterality Modality Pelvis Computed Radiogr aphy Impressions 05/26/2006 5:03 PM CDT : ??Displaced coccyx with internal angulation of approximately 90 degrees at the tip consistent with a history of previous trauma. ?? Narrative 05/26/2006 5:03 PM CDT TWO VIEWS OF THE COCCYX: Shows a severe angulation of the distal tip of the coccyx without acute abnormalities. ??This may represent a previous fracture and displacement of the distal tip of the coccyx. ??The remainder of the lumbar spine shows no appreciable acute or chronic abnormalities. ?? Procedure Note Otoniel Sauer MD - 05/29/2006 TWO VIEWS OF THE COCCYX: Shows a severe angulation of the distal tip of the coccyx without acuteabnormalities. This may represent a previous fracture and displacement ofthe distal tip of the coccyx. The remainder of the lumbar spine shows noappreciable acute or chronic abnormalities. IMPRESSION: Displaced coccyx with internal angulation of approximately 90degrees at the tip consistent with a history of previous trauma. Otoniel Sauer MD RIS XRAY documented in this encounter Visit Diagnoses Diagnosis Pain in joint, pelvic region and thigh- Primary documented in this encounter Additional Health Concerns Infection Onset Date Last Indicated Resolved Time R/O COVID19 05/03/2020 05/03/2020 05/06/2020 5:10 AM CDT documented as of this encounter Care Teams Vp Customer Development Relationship Specialty Start Date End Date Sona Saenz MD [address] [address] PCP - General Internal Medicine 06/07/24 documented as of this encounter
--- OUTSIDE RECORDS SUMMARY | 2024-11-07 07:04 | XMS_ITS | Encounter Summary ---
Author Organization [facility] Address [address] [place] [address] Care Team Providers Care Rivet Hammer Machine Operator Name Role Phone Sona Saenz MD Primary Care Provider [phone] Reason for Visit * Consult & Treatment (Routine) - Closed Specialty Diagnoses / Procedures Referred By Contac t Referred To Contact Cardiology Diagnoses Paroxysmal atrial fibrillation (CMD) Procedures HOLTER MONITOR EXTENDED WEAR 3-7 DAYS / 8-14 DAYS Cm Melton MD [address] [address] Referral ID Status Reason Start Date Expiration Date Visits Re quested Visits Authorized [id number] Closed 06/08/2024 12/07/2025 1 1 Encounter Details Date Type Department Care Team ([facility] st Contact Info) Description 07/08/2024 10:45 AM CDT Ancillary Procedure [facility] [address] [place] [phone] Cm Melton MD [address] [address] Paroxysmal atrial fibrillation (CMD) Social History Tobacco Use Types Packs/Day [...] phone, visiting friends or family, going to anglican or club meetings) 5 or more times [...] No 06/06/2024 documented as of this encounter Plan of Treatment Upcoming Encounters Date Type Department Care Team (Late st Contact Info) Description 11/09/2024 12:15 PM HOME LENDING OFFICER Office Visit [facility] [address] [place] [address] Cm Melton MD [facility] [address] [address] documented as of this encounter Procedures Procedure Name Priority Date/Time Associated Diagnosis Comments HOLTER MONITOR 3-7 DAYS Routine 07/08/2024 10:24 AM CDT Paroxysmal atrial fibrillation (CMD) documented in this encounter Results * HOLTER MONITOR 3-7 DAYS (07/08/2024 10:24 AM CDT) Narrative APS MONITORS - 07/19/2024 11:13 AM CDT 7 day zio monitor Results: Sinus throughout, average HR was 63 bpm HR range was 46 to 115 bpm. No pauses. Rare atrial ectopy < 1%. ?? 13 runs of atach, longest 17 beats. ??No afib. Rare PVCs < 1%. ??No NSVT Yassine DEVI Cm Melton MD CV CARD SERVICES APS MONITORS documented in this encounter Visit Diagnoses Diagnosis Paroxysmal atrial fibrillation (CMD) Atrial fibrillation Palpitations- Primary Paroxysmal atrial fibrillation (CMD) Atrial fibrillation S/P ablation of atrial fibrillation Other postprocedural status PVCs (premature ventricular contractions) Other premature beats halfway current use of antiarrhythmic drug halfway current use of anticoagulant Encounter for long-term (current) use of anticoagulants STAR (obstructive sleep apnea) Obstructive sleep apnea (adult) (pediatric) documented in this encounter Care Teams Rivet Hammer Machine Operator Relationship Specialty Start Date End Date Sona Saenz MD [address] [address] PCP - General Internal Medicine 01/09/24 documented as of this encounter
--- OUTSIDE RECORDS SUMMARY | 2024-11-07 07:04 | XMS_ITS | Encounter Summary ---
Author Organization [facility] Address [address] [place] [address] Care Team Providers Care Inspector Sheet Metal Parts Name Role Phone Sona Saenz MD Primary Care Provider [phone] Reason for Referral * Consult & Treatment (Routine) - Closed Specialty Diagnoses / Procedures Referred By Contvel t Referred To Contact Cardiology Diagnoses Palpitations Paroxysmal atrial fibrillation (CMD) Procedures HOLTER MONITOR 24-48 HRS Cm Melton MD [address] [address] Referral ID Status Reason Start Date Expiration Date Visits Re quested Visits Authorized [id number] Closed 08/23/2024 02/21/2026 1 1 Encounter Details Date Type Department Care Team ([facility] st Contact Info) Description 08/23/2024 Telephone [facility] [address] [phone] Cm Melton MD [address] [address] Social History Tobacco Use Types [...] phone, visiting friends or family, going to tenriism or club meetings) 5 or more times [...] Telephone Encounter - Danna Bean RN - 08/24/2024 9:49 AM CDT Spoke with pt and she will come this afternoon for monitor. * Telephone Encounter - Elizabeth Dixon - 08/24/2024 8:54 AM CDT Patient scheduled for 09/09 due to leaving out of town. Patient did mention could someone just giveher the box without scheduling appt. * Telephone Encounter - Danna Bean RN - 08/23/2024 2:27 PM CDT Spoke with pt and advised as below. Advised order will be placed and she will be called for apt. Ptv/u and agrees with plan. * Telephone Encounter - Danna Bean RN - 08/23/2024 12:02 PM CDT Spoke with pt. States since she received the 2nd dose of shingles vaccine she has noted increased palpitations and skipped heart beats daily. States it is ongoing and does not come and go. Denies chest pain but does mentions some slight pressure in her chest. Denies dyspnea or dizziness. Medication reviewed and she does not take as prescribed due to c/o of not feeling well and nausea. She takes Pradaxa daily not BID, she takes Propafenone daily not BID, and Metoprolol daily . Advised will review with Dr Melton and call with update when available. Pt v/u and agrees with plan.' * Telephone Encounter - Catherine James - 08/23/2024 9:33 AM CDT Pt called in asking to speak to [facility] Nurse. Please call back documented in this encounter Plan of Treatment Upcoming Encounters Date Type Department Care Team (Late st Contact Info) Description 11/09/2024 12:15 PM MOBILE APPLICATION DEVELOPER Office Visit [facility] [address] [place] [phone] Cm Melton MD [address] [address] documented as of this encounter Results * HOLTER MONITOR (08/24/2024 1:46 PM CDT) 08/24/2024 9:48 AM CDT Narrative [facility] - 09/08/2024 5:16 PM MOBILE APPLICATION DEVELOPER 48 hour holter Results: Sinus throughout, average HR was 59 bpm. HR range was 49 to 84 bpm. No pauses. Rare insig atrial ectopy <0.1%. ?? 2 runs of atach, longest 7 beats. ??No afib. Rare to mild PVCs 2.5%. ??no NSVT. Yassine DEVI Cm Melton MD CV CARD SERVICES [facility] documented in this encounter Visit Diagnoses Diagnosis Palpitations- Primary Paroxysmal atrial fibrillation (CMD) Atrial fibrillation Palpitations Paroxysmal atrial fibrillation (CMD) Atrial fibrillation Palpitations- Primary Paroxysmal atrial fibrillation (CMD) Atrial fibrillation S/P ablation of atrial fibrillation Other postprocedural status PVCs (premature ventricular contractions) Other premature beats USP current use of antiarrhythmic drug USP current use of anticoagulant Encounter for long-term (current) use of anticoagulants STAR (obstructive sleep apnea) Obstructive sleep apnea (adult) (pediatric) documented in this encounter Care Teams Inspector Sheet Metal Parts Relationship Specialty Start Date End Date Sona Saenz MD [address] [address] PCP - General Internal Medicine 01/09/24 documented as of this encounter
--- OUTSIDE RECORDS SUMMARY | 2024-11-07 07:04 | XMS_ITS | Encounter Summary ---
Author Organization [facility] Address [address] [place] [address] Care Team Providers Care Hot Metal Crane Operator Name Role Phone Jeison Orozco MD Primary Care Provider Unav ailable Reason for Visit * Reason Onset Date Comments Test Results 08/01/2011 Encounter Details Date Type Department Care Team (Late st Contact Info) Description 08/01/2011 Telephone Internal Medicine - [facility] [address] [facility] [address] [place], [place] [phone] Qian Mathur MD [address] [facility] [address] [place], [place] [phone] Test Results Social History Tobacco Use Types [...] as of this encounter Progress Notes * Jc Rodriguez - 08/01/2011 5:28 PM CDT CALLED PT @ 5:27PM, LM WITH RESPONSE. * Qian Mathur MD - 08/01/2011 4:20 PM CDT Please call pt. Notify NL I answered this on MyChart for. Please have her check that in the future * Aria Disla - 08/01/2011 4:04 PM CDT PATIENT WOULD LIKE TO KNOW WHAT THE RESULTS OF HER MALARIA TEST IS. documented in this encounter Plan of Treatment Upcoming Encounters Date Type Department Care Team (Late st Contact Info) Description 11/24/2024 1:00 PM BUILDING DRAFTER Procedure Surgical Procedure Visit [phone] Titus Vieyra MD [address] [facility] [address] [place] [address] documented as of this encounter Visit Diagnoses Not on filedocumented in this encounter Care Teams Hot Metal Crane Operator Relationship Specialty Start Date End Date Jeison Orozco MD PCP - General 12/25/01 08/12/23 documented as of this encounter
--- OUTSIDE RECORDS SUMMARY | 2024-11-07 07:04 | XMS_ITS | Referral Summary ---
Author Organization [facility] Address [address] [place] [address] Care Team Providers Care Resolute Professional Name Role Phone Sona Saenz MD Primary Care Provider [phone] Encounters Date Type Department Care Team Description 11/03/2024 Clinical Documentation [facility] [address] [place] [address] Danna Bean, RN 11/03/2024 Telephone [facility] [address] [place] [address] Cm Melton MD 10/21/2024 Telephone [facility] [address] [place] [phone] Danna Bean, RN 10/16/2024 External Record [facility] [address] [place] [address] Provider, Outside 10/14/2024 10:00 AM TRAFFIC RATE ANALYST Ancillary Procedure [facility] [place] [address] [facility] [address] [place] [address] Cm Melton MD Paroxysmal atrial fibrillation (CMD); S/P ablation of atrial fibrillation; Palpitations 10/11/2024 Telephone [facility] [address] [place] [address] Cm Melton MD Triage (PVC palaptions) 10/01/2024 Refill [facility] [address] [place] [address] Cm Melton MD Refill Request 09/09/2024 Telephone [facility] [address] [place] [address] Danna Bean RN Condition (PVC) 08/30/2024 Telephone [facility] [address] [place] [address] Cm Melton MD 08/24/2024 2:00 PM CDT Ancillary Procedure [facility] [address] [place] [address] Cm Melton MD Palpitations; Paroxysmal atrial fibrillation (CMD) 08/23/2024 Telephone [facility] [address] [place] [address] Cm Melton MD from Last 3 Months Allergies Active Allergy Reactions Criticality Noted Date [...] Diagnosed Date PVCs (premature ventricular contractions) 2024 shelter current use of antiarrhythmic drug intermediate teacher current use of anticoagulant Dyspnea on exertion 03/20/2023 Paroxysmal atrial fibrillation (CMD) 03/18/2023 S/P ablation of atrial fibrillation 03/18/2023 Overview (03/18/2023): afib ablation 2013 ([facility]) Palpitations 03/18/2023 STAR (obstructive sleep apnea) 03/18/2023 Resolved Problems Problem Noted Date Diagnosed Date Resolved Date Atrial fibrillation (CMD) 06/06/2024 Social History Tobacco Use Types Packs/Day Years Used Date Smoking Tobacco: Former Cigarettes Smokeless Tobacco: Never Tobacco Cessation:Counseling Given: Not Answered Alcohol Use Standard Drinks/Week Comments Yes 2 (1 standard drink = 0.6 oz pur e alcohol) Utilities Answer Date Recorded In the past 12 months has [employer], gas, oil, or water [employer] threatened to shut off services in your home? No 06/06/2024 PHQ-2 Answer Date Recorded Initial depression screening score: 0 06/08/2024 Social Connections Answer Date Recorded How often do you see or talk to people that you care about and feel close to? (For example: talking to friends on the phone, visiting friends or family, going to sikh or club meetings) 5 or more times [...] file Not on file Not on file Last Filed Vital Signs [...] Mass Index 24.91 06/08/2024 8:46 AM CDT Functional Status Functional Status Response Date of [...] concentrating, remembering or making decisions? No 06/06/2024 Plan of Treatment Upcoming Encounters Date Type Department Care Team (Late st Contact Info) Description 11/09/2024 12:15 PM TRAFFIC RATE ANALYST Office Visit [facility] [place] [address] [place] [address] [place] [address] Cm Melton MD [address] [address] Procedures Procedure Name Priority Date/Time Associated Diagnosis Comments HOLTER MONITOR Routine 10/14/2024 10:13 AM TRAFFIC RATE ANALYST Paroxysmal atrial fibrillation (CMD) S/P ablation of atrial fibrillation Palpitations HOLTER MONITOR Routine 08/24/2024 1:46 PM CDT Palpitations Paroxysmal atrial fibrillation (CMD) MAMMO SCREENING BILATERAL W YASMIN Routine 01/09/2024 8:41 AM CDT Encounter for screening mammogram for malignant neoplasm of breast BD DEXA AXIAL SKELETON Routine 12/10/2023 10:40 AM TRAFFIC RATE ANALYST Osteoporosis screening from Last 3 Months or Most Recently Relevant to Health Maintenance Results * HOLTER MONITOR (10/14/2024 10:13 AM TRAFFIC RATE ANALYST) 10/14/2024 10:3 1 AM TRAFFIC RATE ANALYST Narrative [facility] - 10/19/2024 8:31 PM TRAFFIC RATE ANALYST 24 hour holter Results: Sinus throughout, average HR 59 bpm. HR range was 46 to 82 bpm. No pauses. Rare insig atrial ectopy 0.1%. ??Five runs of atach, longest 9 beats. ??No afib. Mild PVCs 4%. ??No runs of NSVT. Yassine DEVI Cm Melton MD CV CARD SERVICES Performing Organization Address [facility] Co de Phone Number [facility] * HOLTER MONITOR (08/24/2024 1:46 PM CDT) 08/24/2024 9:48 AM CDT Narrative [facility] - 09/08/2024 5:16 PM TRAFFIC RATE ANALYST 48 hour holter Results: Sinus throughout, average HR was 59 bpm. HR range was 49 to 84 bpm. No pauses. Rare insig atrial ectopy <0.1%. ?? 2 runs of atach, longest 7 beats. ??No afib. Rare to mild PVCs 2.5%. ??no NSVT. Yassine DEVI mC Melton MD CV CARD SERVICES Performing Organization Address [facility] Co de Phone Number [facility] * MAMMO SCREENING BILATERAL W YASMIN (01/09/2024 8:41 AM CDT) Anatomical Region Laterality Modality Breast Bilateral Mammography 01/09/2024 8:41 AM CDT Impressions 01/09/2024 9:19 AM CDT MAMMOGRAPHY ??NEGATIVE There is no mammographic evidence of malignancy. A 1 year screening mammogram is recommended. ?? MAMMOGRAPHY BI-RADS: 1 NEGATIVE Electronically Signed by: Shelia Rene M.D. ? beltran/lidarad:01/09/2024 09:19:38 ?? letter sent: Normal Single Exam Narrative 01/09/2024 9:19 AM CDT #[id number] - MAMMO SCREENING BILATERAL W YASMIN BILATERAL DIGITAL SCREENING MAMMOGRAM 3D/2D WITH CAD: 01/09/2024 CLINICAL HISTORY:Routine annual screening mammogram - tomosynthesis. ?? COMPARISON: Comparison is made to exams dated: 12/09/2022 mammogram, 11/08/2021 mammogram, 04/21/2020 mammogram, 12/18/2016 mammogram, and 11/17/2015 mammogram - [facility]. ?? BREAST COMPOSITION: There are scattered fibroglandular elements (ACR Breast Composition Category B) in both breasts. ?? [employer] Breast Composition Categories ??A [...] Procedure Note Shelia Rene MD - 01/09/2024 #[id number] - MAMMO SCREENING BILATERAL W YASMIN BILATERAL DIGITAL SCREENING MAMMOGRAM 3D/2D WITH CAD: 01/09/2024 CLINICAL HISTORY:Routine annual screening mammogram - tomosynthesis. COMPARISON: Comparison is made to exams dated: 12/09/2022 mammogram, 11/08/2021mammogram, 04/21/2020 mammogram, 12/18/2016 mammogram, and 11/17/2015mammogram - [facility]. BREAST COMPOSITION: There are scattered fibroglandular elements (ACRBreast Composition Category B) in both breasts. [employer] Breast Composition Categories A [...] DEXA SCAN AXIAL SKELETON (12/10/2023 10:40 AM TRAFFIC RATE ANALYST) Anatomical Region Laterality Modality Bone Density Dual-energy X-ra y Absorptiometry 12/10/2023 11:1 4 AM TRAFFIC RATE ANALYST Impressions 12/10/2023 11:15 AM TRAFFIC RATE ANALYST Bone mineral density is in the osteopenia [...] Signed on: 12/10/2023 11:15 AM Workstation ID: [id number] Narrative 12/10/2023 11:15 AM TRAFFIC RATE ANALYST EXAM: BD DEXA AXIAL SKELETON CLINICAL INDICATION: [...] in BMD with a 95% confidence is ??0.663101 gm/cm2 at the total hip, 0.009225 gm/cm2 at the femoral neck and 0.761788 gm/cm2 at the 1/3 radius. Procedure Note [...] change in BMD with a 95%confidence is 0.384218 gm/cm2 at the total hip, 0.717795 gm/cm2 at the femoralneck and 0.728776 gm/cm2 at the 1/3 radius. IMPRESSION: Bone mineral density is in the osteopenia category. See above. Fracture risk estimated using the FRAX calculator : The [id number] risk for a major osteoporotic fracture is [...] Signed on: 12/10/2023 11:15 AM Workstation ID: [id number] Marissa Herrera MD IMG DXA PROCEDURES from Last 3 Months or Most Recently Relevant to Health Maintenance Care Teams Resolute Professional Relationship Specialty Start Date End Date Sona Saenz MD [address] [address] PCP - General Internal Medicine 01/09/24
--- OUTSIDE RECORDS SUMMARY | 2024-11-07 07:04 | XMS_ITS | Encounter Summary ---
Author Organization [facility] Address [address] [place] [address] Care Team Providers Care Architectural Intern Name Role Phone Jeison Orozco MD Primary Care Provider Unav ailable Reason for Visit * Reason Comments Eye Spasm red,draining Encounter Details Date Type Department Care Team (Late st Contact Info) Description 04/13/2012 12:45 PM CDT Office Visit Internal Medicine - [facility] [address] [facility] [address] [place] [address] Qina Mathur MD [address] [facility] [facility] [address] [place], [place] [id number] Allergic conjunctivitis (Primary Dx) Social History Tobacco Use Types [...] Sign Reading Time Taken Comments Blood Pressure 104/80 04/13/2012 1:06 PM CDT Pulse 68 04/13/2012 1:06 PM CDT Temperature 36.9 ??C (98.4 ??F) 04/13/2012 1:06 PM CD T Respiratory Rate - - Oxygen Saturation - - Inhaled Oxygen Concentration - - Weight 68.9 kg (151 lb 12.8 oz) 04/13/2012 1:06 PM CDT Height 168.3 cm (5' 6.25 ) 04/13/2012 1:06 PM CD T Body Mass Index 24.32 04/13/2012 1:06 PM CDT documented in this encounter Progress Notes * Qian Mathur MD - 04/13/2012 1:18 PM CDT Patient presents with: Eye Spasm - red,draining Tonya Costello is a 51 year old female. [address] in [place] - had b/l eye redness, whitish d/c, mild itchiness. Was swimming in pool. yest developed same sx's. Mild haziness w/ vision which resolves after she clears the mucus out in AM. No yellow discharge. No pain. Mild periorb PRITCHARD b/l. No photophobia. Vision fine now Doesn't wear contacts ROS OUTLINED ABOVE. OTHERWISE REVIEWED ACROSS 10 [...] 03/29/2011 10/15/2011 TDAP 02/25/2011 PE Blood pressure 104/80, pulse 68, temperature 98.4 ??F (36.9 ??C), temperature source Oral, height 5' 6.25 , weight 151 lb 12.8 oz. Genl: NAD HEENT: mild B/l diffuse scleral injection w/ minimal white dc ASSESSMENT AND PLAN: prob allergic conjunctivitis Gave samples Pataday 1 gtt each eye daily - Instructed on use. discussed side effects. Can try OTC anthistamine as well Call if symptoms persist, change, or worsen See orders After visit summary given to pt The patient indicates understanding of these issues and agrees to the plan. All of pt's ?s were answered today documented in this encounter Plan of Treatment Upcoming Encounters Date Type Department Care Team (Late st Contact Info) Description 11/24/2024 1:00 PM FORMULA CLERK Procedure Surgical Procedure Visit [phone] Titus Vieyra MD [address] [place] [address] [address] [place] [address] Scheduled Orders Name Type Priority Associated Diagnoses Orde r Schedule OFFICE/OUTPT VISIT,EST,LEVL III PROCEDURES Routine Allergic conjunctivitis Ordered: 04/13/2012 documented as of this encounter Visit Diagnoses Diagnosis Allergic conjunctivitis- Primary Other chronic allergic conjunctivitis documented in this encounter Care Teams Architectural Intern Relationship Specialty Start Date End Date Jeison Orozco MD PCP - General 12/25/01 08/12/23 documented as of this encounter
--- OUTSIDE RECORDS SUMMARY | 2024-11-07 07:04 | XMS_ITS | Encounter Summary ---
Author Organization [facility] Address [address] [place] [address] Care Team Providers Care Manager Restaurant Name Role Phone Sona Saenz MD Primary Care Provider [phone] Reason for Visit * Consult & Treatment (Routine) - Closed Specialty Diagnoses / Procedures Referred By Contac t Referred To Contact Cardiology Diagnoses Paroxysmal atrial fibrillation (CMD) S/P ablation of atrial fibrillation Palpitations Procedures HOLTER MONITOR 24-48 HRS Cm Melton MD [address] [address] Referral ID Status Reason Start Date Expiration Date Visits Re quested Visits Authorized [id number] Closed 10/11/2024 04/11/2026 1 1 Encounter Details Date Type Department Care Team (Late st Contact Info) Description 10/14/2024 10:00 AM FRUIT AND VEGETABLE PARER Ancillary Procedure [facility] [place] [address] [place] [address] [address] [facility] [address] [place] [phone] Cm Melton MD [address] [address] Paroxysmal atrial fibrillation (CMD); S/P ablation of atrial fibrillation; Palpitations Social History Tobacco Use Types Packs/Day Years Used Date Smoking Tobacco: Former Cigarettes Smokeless Tobacco: Never Alcohol Use Standard Drinks/Week Comments Yes 2 (1 standard drink = 0.6 oz pur e alcohol) Utilities Answer Date Recorded In the past 12 months has [employer] electric, gas, oil, or water [employer] threatened to shut off services in your home? No 06/06/2024 PHQ-2 Answer Date Recorded Initial depression screening score: 0 06/08/2024 Social Connections Answer Date Recorded How often do you see or talk to people that you care about and feel close to? (For example: talking to friends on the phone, visiting friends or family, going to confucianist or club meetings) 5 or more times [...] st Contact Info) Description 11/09/2024 12:15 PM FRUIT AND VEGETABLE PARER Office Visit [facility] [address] [place] [address] Cm Melton MD [address] [address] documented as of this encounter Procedures Procedure Name Priority Date/Time Associated Diagnosis Comments HOLTER MONITOR Routine 10/14/2024 10:13 AM FRUIT AND VEGETABLE PARER Paroxysmal atrial fibrillation (CMD) S/P ablation of atrial fibrillation Palpitations documented in this encounter Results * HOLTER MONITOR (10/14/2024 10:13 AM FRUIT AND VEGETABLE PARER) 10/14/2024 10:3 1 AM FRUIT AND VEGETABLE PARER Narrative [facility] - 10/19/2024 8:31 PM FRUIT AND VEGETABLE PARER 24 hour holter Results: Sinus throughout, average HR 59 bpm. HR range was 46 to 82 bpm. No pauses. Rare insig atrial ectopy 0.1%. ??Five runs of atach, longest 9 beats. ??No afib. Mild PVCs 4%. ??No runs of NSVT. Yassine DEVI Cm Melton MD CV CARD SERVICES [facility] documented in this encounter Visit Diagnoses Diagnosis Paroxysmal atrial fibrillation (CMD) Atrial fibrillation S/P ablation of atrial fibrillation Other postprocedural status Palpitations Palpitations- Primary Paroxysmal atrial fibrillation (CMD) Atrial fibrillation S/P ablation of atrial fibrillation Other postprocedural status PVCs (premature ventricular contractions) Other premature beats salvage determiner current use of antiarrhythmic drug prison current use of anticoagulant Encounter for long-term (current) use of anticoagulants STAR (obstructive sleep apnea) Obstructive sleep apnea (adult) (pediatric) documented in this encounter Care Teams Manager Restaurant Relationship Specialty Start Date End Date Sona Saenz MD [address] [address] PCP - General Internal Medicine 01/09/24 documented as of this encounter
--- OUTSIDE RECORDS SUMMARY | 2024-11-07 07:04 | XMS_ITS | Encounter Summary ---
Author Organization [facility] Address [address] [place] [address] Care Team Providers Care Fitness Instructor Name Role Phone Sona Saenz MD Primary Care Provider [phone] Encounter Details Date Type Department Care Team ([facility] Contact Info) Description 07/19/2024 Telephone [facility] [place] [address] [place] [address] [address] [place] [address] Danna Bean RN Social History [...] phone, visiting friends or family, going to alevism or club meetings) 5 or more times [...] Never 06/05/2024 How often does anyone, carito resedniz family and friends, scream or curse at [...] Telephone Encounter - Danna Bean RN - 07/19/2024 12:48 PM CDT Pt called and reviewed results. Advised to CPM. Pt v/u and agrees with plan. * Telephone Encounter - Danna Bean RN - 07/19/2024 12:48 PM CDT ----- Message from Cm Melton MD sent at 07/19/2024 11:29 AM CDT ----- I would continue propafenone at the current dose ----- Message ----- From: Danna Bean RN Sent: 07/19/2024 11:25 AM CDT To: Cm Melton MD Pls advise on propafenone. Next OV in Nov documented in this encounter Plan of Treatment Upcoming Encounters Date Type Department Care Team (Late st Contact Info) Description 11/09/2024 12:15 PM REMOTE SENSING SURVEYOR Office Visit [facility] [place] [address] [facility] [address] [place] [phone] Cm Melton MD [address] [address] documented as of this encounter Visit Diagnoses Not on filedocumented in this encounter Care Teams Fitness Instructor Relationship Specialty Start Date End Date Sona Saenz MD [address] [place] [address] PCP - General Internal Medicine 01/09/24 documented as of this encounter
--- OUTSIDE RECORDS SUMMARY | 2024-11-07 07:04 | XMS_ITS | Encounter Summary ---
Author Organization [facility] Address [address] [place] [address] Care Team Providers Care House Detective Name Role Phone Jeison Orozco MD Primary Care Provider Unav ailable Reason for Visit * Reason Onset Date Comments Test Results 03/20/2010 Encounter Details Date Type Department Care Team (Late st Contact Info) Description 03/20/2010 Telephone Med/Peds - [facility] [address] [place] [address] Sona Saenz MD [address] [address] Test Results Social History Tobacco Use [...] of this encounter Progress Notes * Su Boykin - 03/21/2010 5:31 PM CDT SPOKE WITH THE PATIENT/PARENT WHO VERBALIZED UNDERSTANDING * Sona Saenz MD - 03/20/2010 5:57 PM CDT Lab brought in by patient reviewed. No concerns with any results presented. Will see her back for usual check up in 1 year. documented in this encounter Plan of Treatment Upcoming Encounters Date Type Department Care Team (Late st Contact Info) Description 11/24/2024 1:00 PM BALANCE CLERK Procedure Surgical Procedure Visit [phone] Titus Vieyra MD [address] [place] [address] [address] [place] [address] documented as of this encounter Visit Diagnoses Not on filedocumented in this encounter Care Teams House Detective Relationship Specialty Start Date End Date Jeison Orozco MD PCP - General 12/25/01 08/12/23 documented as of this encounter
--- OUTSIDE RECORDS SUMMARY | 2024-11-07 07:04 | XMS_ITS | Encounter Summary ---
Author Organization [facility] Address [address] [place] [address] Care Team Providers Care Bushing Press Operator Name Role Phone Sona Saenz MD Primary Care Provider [phone] Encounter Details Date Type Department Care Team ([facility] Contact Info) Description 10/16/2024 External Record [facility] [address] [place] [address] [place] [phone] Provider, Outside Social History Tobacco Use Types Packs/Day Years Used Date Smoking Tobacco: Former Cigarettes Smokeless Tobacco: Never Alcohol Use Standard Drinks/Week Comments Yes 2 (1 standard drink = 0.6 oz pur e alcohol) Utilities Answer Date Recorded In the past 12 months has [employer] electric, gas, oil, or water [employer] threatened to shut off services in your home? No 06/06/2024 PHQ-2 Answer Date Recorded Initial depression screening score: 0 06/08/2024 Social Connections Answer Date Recorded How often do you see or talk to people that you care about and feel close to? (For example: talking to friends on the phone, visiting friends or family, going to religion or club meetings) 5 or more times [...] st Contact Info) Description 11/09/2024 12:15 PM CAUSTIC STRENGTH INSPECTOR Office Visit [facility] [place] [address] [place] [address] [place] [address] [address] [place] [address] Cm Melton MD [address] [address] documented as of this encounter Visit Diagnoses Not on filedocumented in this encounter Care Teams Bushing Press Operator Relationship Specialty Start Date End Date Sona Saenz MD [address] [facility] [address] [place] [address] PCP - General Internal Medicine 01/09/24 documented as of this encounter
--- OUTSIDE RECORDS SUMMARY | 2024-11-07 07:04 | XMS_ITS | Encounter Summary ---
Author Organization [facility] Address [address] [place] [address] Care Team Providers Care Import Coordination And Production Head Name Role Phone Sona Saenz MD Primary Care Provider [phone] Encounter Details Date Type Department Care Team (Late st Contact Info) Description 03/18/2007 Orders Only [facility] [address] [place] [address] Sona Saenz MD [address] [id number] Pain in joint, site unspecified (Primary Dx) Social History Tobacco Use Types Packs/Day Years Used Date Smoking Tobacco: Never Assessed Sex and Gender Information Value Date Recorded Sex Assigned at Not on file Gender Identity Female 07/03/2021 5:51 PM CDT Sexual Orientation Not on file documented as of this encounter Plan of Treatment Upcoming Encounters Date Type Department Care Team (Late st Contact Info) Description 11/24/2024 1:00 PM TRAINING PROGRAM ASSISTANT Procedure Surgical Procedure Visit [phone] Titus Vieyra MD [address] [place] [address] [address] [place], [place] [phone] documented as of this encounter Procedures Procedure Name Priority Date/Time Associated Diagnosis Comments RADEX WRIST COMPLETE MINIMUM 3 VIEWS Routine 03/18/2007 9:10 AM CDT Pain In Joint, Site Unspecified documented in this encounter Results * X-RAY WRIST 3+ VW (03/18/2007 9:10 AM CDT) Anatomical Region Laterality Modality Upper body Computed Radiogr aphy Impressions 03/19/2007 8:29 AM CDT Negative left wrist. Narrative 03/19/2007 8:29 AM CDT LEFT WRIST, THREE VIEWS - 03/18/07 HISTORY: ??Wrist pain. FINDINGS: ??All the visualized bones and joint spaces appear intact. ??No evidence of acute or chronic fracture. Procedure Note Heather Jordan MD - 03/20/2007 LEFT WRIST, THREE VIEWS - 03/18/07 HISTORY: Wrist pain. FINDINGS: All the visualized bones and joint spaces appear intact. Noevidence of acute or chronic fracture. IMPRESSION Negative left wrist. Sona Saenz MD RIS XRAY documented in this encounter Visit Diagnoses Diagnosis Pain in joint, site unspecified- Primary documented in this encounter Additional Health Concerns Infection Onset Date Last Indicated Resolved Time R/O COVID19 05/03/2020 05/03/2020 05/06/2020 5:10 AM CDT documented as of this encounter Care Teams Import Coordination And Production Head Relationship Specialty Start Date End Date Sona Saenz MD [address] [address] PCP - General Internal Medicine 06/07/24 documented as of this encounter
--- OUTSIDE RECORDS SUMMARY | 2024-11-07 07:04 | XMS_ITS | Encounter Summary ---
Author Organization [facility] Address [address] [place] [address] Care Team Providers Care Oceanographer Physical Name Role Phone Jeison Orozco MD Primary Care Provider Unav ailable Encounter Details Date Type Department Care Team (Late st Contact Info) Description 10/14/2011 Telephone Internal Medicine - [place] [facility] [address] [facility] [address] [place], [place] [phone] Qian Mathur MD [address] [facility] [address] [place], [place] [id number] Social History Tobacco Use Types Packs/Day Years [...] encounter Progress Notes * Meera Ulloa - 10/14/2011 11:53 AM CST Patient calling to set up 3nd twinrix vaccination. Appointment made after confirming date for 3rd vaccine for 10/15 at 8 AM. EL MECHANIC CONSTRUCTION documented in this encounter Plan of Treatment Upcoming Encounters Date Type Department Care Team (Late st Contact Info) Description 11/24/2024 1:00 PM DIESEL MECHANIC CONSTRUCTION Procedure Surgical Procedure Visit [phone] Titus Vieyra MD [address] [place] [address] [address] [place] [address] documented as of this encounter Visit Diagnoses Not on filedocumented in this encounter Care Teams Oceanographer Physical Relationship Specialty Start Date End Date Jeison Orozco MD PCP - General 12/25/01 08/12/23 documented as of this encounter
--- OUTSIDE RECORDS SUMMARY | 2024-11-07 07:04 | XMS_ITS | Encounter Summary ---
Author Organization [facility] Address [address] [place] [address] Care Team Providers Care Redevelopment Manager Name Role Phone Sona Saenz MD Primary Care Provider [phone] Reason for Referral * Consult & Treatment (Routine) - Closed Specialty Diagnoses / Procedures Referred By Contac t Referred To Contact Cardiology Diagnoses Paroxysmal atrial fibrillation (CMD) S/P ablation of atrial fibrillation Palpitations Procedures HOLTER MONITOR 24-48 HRS Cm Melton MD [address] [address] Referral ID Status Reason Start Date Expiration Date Visits Re quested Visits Authorized [id number] Closed 10/11/2024 04/11/2026 1 1 LITY SCOOTER REPAIRER Reason for Visit * Reason Comments Triage PVC palaptions Encounter Details Date Type Department Care Team ([facility] st Contact Info) Description 10/11/2024 Telephone [facility] [address] [place] [address] Cm Melton MD [address] [address] Triage (PVC palaptions) Social History Tobacco Use Types Packs/Day Years Used Date Smoking Tobacco: Former Cigarettes Smokeless Tobacco: Never Alcohol Use Standard Drinks/Week Comments Yes 2 (1 standard drink = 0.6 oz pur e alcohol) Utilities Answer Date Recorded In the past 12 months has [email or web address], or [employer] threatened to shut off services in your home? No 06/06/2024 PHQ-2 Answer Date Recorded Initial depression screening score: 0 06/08/2024 Social Connections Answer Date Recorded How often do you see or talk to people that you care about and feel close to? (For example: talking to friends on the phone, visiting friends or family, going to uatsdin or club meetings) 5 or more times [...] harm??? Never 06/05/2024 How often does anyone, armondelo resendiz family and friends, scream or curse [...] tablet in the evening. 180 tablet 10/11/2024 documented in this encounter Miscellaneous Notes * Telephone Encounter - Gera Munroe RN - 10/12/2024 1:25 PM CST Noted. LITY SCOOTER REPAIRER * Telephone Encounter - Bhakti Sosa - 10/12/2024 8:56 AM CST Added to [place] monitor book/musical engineer appt cancelled. LITY SCOOTER REPAIRER * Telephone Encounter - Gera Munroe RN - 10/12/2024 8:43 AM CST Spoke with the patient gave her all recommendations form Dr. Metlon below. Patient is agreeable to cancel her DECISION SUPPORT ANALYST appt. On 10/14 and have a her monitor placed at [place] location at 10am on 10/14. Patient verbalized understanding. Patient to call us back for any more questions or concerns. LITY SCOOTER REPAIRER * Addendum Note - Gera Munroe RN - 10/11/2024 4:37 PM MOBILITY SCOOTER REPAIRER Addended by: GERA MUNROE on: 10/11/2024 04:37 PM Modules accepted: Orders LITY SCOOTER REPAIRER * Telephone Encounter - Gera Munroe RN - 10/11/2024 4:37 PM CST Monitor ordered. LITY SCOOTER REPAIRER * Telephone Encounter - Gera Munroe RN - 10/11/2024 4:35 PM CST Images from the original note were not included. Cm Melton [place] to [place] 10/11/24 3:09 PM pvcs by monitor in july were 2-3% Recommend repeat 48 hour holter to see if pvcs have increased since July. No change in meds at this point until I see what we are dealing with LITY SCOOTER REPAIRER * Telephone Encounter - Gera Munroe RN - 10/11/2024 2:36 PM CST Triage Call Chief complaint: Palpations on Cardia home monitor Description: She states she feels the palpations all the time and they are uncomfortable. She states she is taking Metoprolol succinate 25mg twice daily and still has issues.Cardia monitor shows PVC.She is feeling it is very bothersome. She denies issues with BP and HR. Medications discussed: metoPROLOL succinate (TOPROL-XL) 25 MG 24 hr tablet, twice daily Next appt: 10/14/2024 9:30 AM Bettina Macdonald NP Plan: Routed to Dr. Melton for recommendations and his/her clinical pool for awareness. Patient verbalized understanding of all above information. Patient to call us back for any more questions or concerns. LITY SCOOTER REPAIRER documented in this encounter Plan of Treatment Upcoming Encounters Date Type Department Care Team (Late st Contact Info) Description 11/09/2024 12:15 PM MOBILITY SCOOTER REPAIRER Office Visit [facility] [address] [place] [phone] Cm Melton MD [address] [address] documented as of this encounter Results * HOLTER MONITOR (10/14/2024 10:13 AM MOBILITY SCOOTER REPAIRER) 10/14/2024 10:3 1 AM MOBILITY SCOOTER REPAIRER Narrative [facility] - 10/19/2024 8:31 PM MOBILITY SCOOTER REPAIRER 24 hour holter Results: Sinus throughout, average HR 59 bpm. HR range was 46 to 82 bpm. No pauses. Rare insig atrial ectopy 0.1%. ??Five runs of atach, longest 9 beats. ??No afib. Mild PVCs 4%. ??No runs of NSVT. Yassine DEVI Cm Melton MD CV CARD SERVICES [facility] documented in this encounter Visit Diagnoses Diagnosis Palpitations- Primary Paroxysmal atrial fibrillation (CMD) Atrial fibrillation S/P ablation of atrial fibrillation Other postprocedural status Paroxysmal atrial fibrillation (CMD) Atrial fibrillation S/P ablation of atrial fibrillation Other postprocedural status Palpitations Palpitations- Primary Paroxysmal atrial fibrillation (CMD) Atrial fibrillation S/P ablation of atrial fibrillation Other postprocedural status PVCs (premature ventricular contractions) Other premature beats termite treater helper current use of antiarrhythmic drug [facility] current use of anticoagulant Encounter for long-term (current) use of anticoagulants STAR (obstructive sleep apnea) Obstructive sleep apnea (adult) (pediatric) documented in this encounter Discontinued Medications Medication Sig Discontinue Reason Start Date End Da te metoPROLOL succinate (TOPROL-XL) 25 MG 24 hr tablet TAKE 1 TABLET BY MOUTH DAILY Dose Adjustment 10/01/2024 10/11/2024 documented as of this encounter Care Teams Redevelopment Manager Relationship Specialty Start Date End Date Sona Saenz MD [address] [place] [address] PCP - General Internal Medicine 01/09/24 documented as of this encounter
--- OUTSIDE RECORDS SUMMARY | 2024-11-07 07:04 | XMS_ITS | Encounter Summary ---
Author Organization [facility] Address [address] [place] [address] Care Team Providers Care Quartz Cutter Name Role Phone Sona Saenz MD Primary Care Provider [phone] Reason for Visit * Consult & Treatment (Routine) - Closed Specialty Diagnoses / Procedures Referred By Contac t Referred To Contact Cardiology Diagnoses Palpitations Paroxysmal atrial fibrillation (CMD) Procedures HOLTER MONITOR 24-48 HRS Cm Melton MD [address] [address] Referral ID Status Reason Start Date Expiration Date Visits Re quested Visits Authorized [id number] Closed 08/23/2024 02/21/2026 1 1 Encounter Details Date Type Department Care Team (Late st Contact Info) Description 08/24/2024 2:00 PM CDT Ancillary Procedure [facility] [address] [place] [phone] Cm Melton MD [address] [address] Palpitations; Paroxysmal atrial fibrillation (CMD) Social History Tobacco [...] phone, visiting friends or family, going to presybeterian or club meetings) 5 or more times [...] st Contact Info) Description 11/09/2024 12:15 PM LAUNDRY MANAGER Office Visit [facility] [address] 2 - [facility] [address] [place] [phone] Cm Melton MD [facility] [address] [address] documented as of this encounter Procedures Procedure Name Priority Date/Time Associated Diagnosis Comments HOLTER MONITOR Routine 08/24/2024 1:46 PM CDT Palpitations Paroxysmal atrial fibrillation (CMD) documented in this encounter Results * HOLTER MONITOR (08/24/2024 1:46 PM CDT) 08/24/2024 9:48 AM CDT Narrative [facility] - 09/08/2024 5:16 PM LAUNDRY MANAGER 48 hour holter Results: Sinus throughout, average HR was 59 bpm. HR range was 49 to 84 bpm. No pauses. Rare insig atrial ectopy <0.1%. ?? 2 runs of atach, longest 7 beats. ??No afib. Rare to mild PVCs 2.5%. ??no NSVT. Yassine DEVI Cm Melton MD CV CARD SERVICES [facility] documented in this encounter Visit Diagnoses Diagnosis Palpitations Paroxysmal atrial fibrillation (CMD) Atrial fibrillation Palpitations- Primary Paroxysmal atrial fibrillation (CMD) Atrial fibrillation S/P ablation of atrial fibrillation Other postprocedural status PVCs (premature ventricular contractions) Other premature beats [facility] current use of antiarrhythmic drug manager intermediate current use of anticoagulant Encounter for long-term (current) use of anticoagulants STAR (obstructive sleep apnea) Obstructive sleep apnea (adult) (pediatric) documented in this encounter Care Teams Quartz Cutter Relationship Specialty Start Date End Date Sona Saenz MD [address] [address] PCP - General Internal Medicine 01/09/24 documented as of this encounter
--- OUTSIDE RECORDS SUMMARY | 2024-11-07 07:04 | XMS_ITS | Encounter Summary ---
Author Organization [facility] Address [address] [place] [address] Care Team Providers Care Electroplating Worker Name Role Phone Sona Saenz MD Primary Care Provider [phone] Reason for Visit * Reason Comments Condition PVC Encounter Details Date Type Department Care Team ([facility] Contact Info) Description 09/09/2024 Telephone [facility] [address] [place] [address] Danna Bean, RN Condition (PVC) Social History Tobacco Use Types Packs/Day Years [...] phone, visiting friends or family, going to jewish or club meetings) 5 or more times [...] Encounter - Danna Bean RN - 09/09/2024 8:51 AM CST Spoke with pt regarding results. Pt states she continues to be bothered by palpitations. Advised per Dr Melton she can increase Metoprolol Succ 25 mg to BID dosing. Pt will call In 1 week with an update. Pt v/u and agrees with plan. AND MISCELLANEOUS REMITTANCE CLERK * Telephone Encounter - Danna Bean RN - 09/09/2024 8:51 AM CST ----- Message from Cm Melton MD sent at 09/08/2024 5:28 PM RENT AND MISCELLANEOUS REMITTANCE CLERK ----- if pvcs are bothering her she can increase toprol to 25 bid ----- Message ----- From: Cm Melton MD Sent: 09/08/2024 5:16 PM RENT AND MISCELLANEOUS REMITTANCE CLERK To: Cm eMlton MD AND MISCELLANEOUS REMITTANCE CLERK documented in this encounter Plan of Treatment Upcoming Encounters Date Type Department Care Team (Late st Contact Info) Description 11/09/2024 12:15 PM RENT AND MISCELLANEOUS REMITTANCE CLERK Office Visit [facility] [address] [place] [phone] Cm Melton MD [facility] [address] [address] documented as of this encounter Visit Diagnoses Not on filedocumented in this encounter Discontinued Medications Medication Sig Discontinue Reason Start Date End Da te metoPROLOL succinate (Toprol XL) 25 MG 24 hr tablet Take 1 tablet by mouth daily. Dose Adjustment 06/26/2023 09/09/2024 documented as of this encounter Historical Medications * This list may reflect changes made after this encounter. Medication Sig Dispensed Refills Start Date End Date metoPROLOL succinate (TOPROL-XL) 25 MG 24 hr tablet Take 25 mg by mouth in the morning and 25 mg in the evening. 10/01/2024 added in this encounter Care Teams Electroplating Worker Relationship Specialty Start Date End Date Sona Saenz MD [address] [address] PCP - General Internal Medicine 01/09/24 documented as of this encounter
--- OUTSIDE RECORDS SUMMARY | 2024-11-07 07:04 | XMS_ITS | Encounter Summary ---
Author Organization [facility] Address [address] [place] [address] Phone [email or web address] Care Team Providers Care Business Management Analyst Name Role Phone Unavailable Primary Care Provider Unavailabl e Encounter Details Date Type Department Care Team (Late st Contact Info) Description 08/09/2021 12:15 PM CDT Immunization [facility] [address] [place] [address] Tiffany Castro MA [address] [place] [address] Encounter for immunization (Primary Dx) Social History Tobacco Use Types Packs/Day Years Used Date Smoking Tobacco: Never Assessed Intimate Partner Violence Answer Date R ecorded Insults You Not on file 02/06/2021 Threatens You Not on file 02/06/2021 Screams at You Not on file 02/06/2021 Physically Hurt Not on file 02/06/2021 Intimate Partner Violence Score Not on file 02/06/2021 Stress Answer Date Recorded Stress in your Life 0 12/07/2020 Dealing with Stress Not on file 12/07/2020 Comments Unknown Sex and Gender Information Value Date Recorded Sex Assigned at Not on file Legal Sex Female 11:00 AM CDT Gender Identity Not on file Sexual Orientation Not on file documented as of this encounter Plan of Treatment Not on file documented as of this encounter Visit Diagnoses Diagnosis Encounter for immunization- Primary documented in this encounter
--- OUTSIDE RECORDS SUMMARY | 2024-11-07 07:04 | XMS_ITS | Clinical Summary ---
Author Organization [facility] Address [address] [place] [address] Phone [email or web address] Care Team Providers Care Toe Former Stitchdowns Name Role Phone Unavailable Primary Care Provider Unavailabl e Immunizations Name Administration Dates Next Due Influenza, (Afluria Fluarix Flulaval Fluzone) quad, PF (CVX-150) 08/09/2021,08/04/2020 Social History Tobacco Use Types Packs/Day Years Used Date Smoking Tobacco: Never Assessed Intimate Partner Violence Answer Date R ecorded Insults You Not on file 02/06/2021 Threatens You Not on file 02/06/2021 Screams at You Not on file 02/06/2021 Physically Hurt Not on file 02/06/2021 Intimate Partner Violence Score Not on file 02/06/2021 Stress Answer Date Recorded Stress in your Life Not on file 08/30/2024 Dealing with Stress 3 08/30/2024 Comments Unknown Sex and Gender Information Value Date Recorded Sex Assigned at Not on file Legal Sex Female 11:00 AM CDT Gender Identity Not on file Sexual Orientation Not on file Plan of Treatment Health Maintenance Due Date Last Done Comments HIV Screening 1958 Hepatitis C Screening 1958 Cervical Cancer Screening 1974 Annual Preventive Exam 1976 Hep B Infection Screening - Triple Screen 1976 Colorectal Cancer Screening 1988 Osteoporosis screening DEXA 2008 Zoster Immunization (1 of 2) 2008 Tetanus Diphtheria and Pertussis Immunization (2 - Td or Tdap) 02/25/2021 02/25/2011 Breast Cancer Screening 04/21/2022 04/21/2020 Pneumococcal: 65+ Years (1 o f 1 - PCV) 2023 Covid-19 Immunization (1 - season) 2024 Influenza Immunization (#1) 06/27/202407/27, 08/04/2020 Hepatitis A Immunization Aged Out 011, 03/29/2011, 02/25/2011 No longer eligible based on patient's age to complete this topic Hepatitis B Immunization Completed 011, 03/29/2011, 02/25/2011 HIB Immunization Aged Out No longer e ligible based on patient's age to complete this topic HPV Immunization Aged Out No longer e ligible based on patient's age to complete this topic Polio Immunization Aged Out No longer eligible based on patient's age to complete this topic Insurance [facility] NO COPAY NB
--- OUTSIDE RECORDS SUMMARY | 2024-11-07 07:05 | XMS_ITS | Encounter Summary ---
Author Organization [facility] Address [address] [place] [address] Care Team Providers Care Chemistry Associate Name Role Phone Sona Saenz MD Primary Care Provider [phone] Reason for Visit * Reason Comments Cipher Outreach 2 Encounter Details Date Type Department Care Team ([facility] Contact Info) Description 06/15/2024 Telephone [facility] [address] [place] [address] Provider, Population Health Support Cipher Outreach 2 Social History Tobacco Use Types Packs/Day Years [...] phone, visiting friends or family, going to synagogue or club meetings) 5 or more times [...] st Contact Info) Description 11/09/2024 12:15 PM COOK FISHING VESSEL Office Visit [facility] [place] [address] [place] [address] Cm Melton MD [address] [address] documented as of this encounter Visit Diagnoses Not on filedocumented in this encounter Care Teams Chemistry Associate Relationship Specialty Start Date End Date Sona Saenz MD [address] [place] [address] PCP - General Internal Medicine 01/09/24 documented as of this encounter
--- OUTSIDE RECORDS SUMMARY | 2024-11-07 07:05 | XMS_ITS | Encounter Summary ---
Author Organization [facility] Address [address] [place] [address] Care Team Providers Care Log Cut Off Sawyer Name Role Phone Jeison Orozco MD Primary Care Provider [phone] Encounter Details Date Type Department Care Team (Latest Contact Info) Description 11/08/2021 8:20 AM READINESS PARAPROFESSIONAL - 11/08/2021 11:59 PM READINESS PARAPROFESSIONAL Hospital Encounter [facility] MAMMOGRAPHY [address] [place] [address] Marissa Herrera MD [address] [facility] [place] [address] [place] [address] Discharge Disposition: Home or Self Care Social History Tobacco Use Types Packs/Day Years Used Date Smoking Tobacco: Never Assessed Inadequate Housing Answer Date Recorded Social Determinants: Housing (Overall Score Help er) 0 06/25/2019 Sex and Gender Information Value Date Recorded Sex Assigned at Not on file Gender Identity Not on file Sexual Orientation Not on file Job Start Date Occupation Industry Not on file Not on file Not on file documented as of this encounter Discharge Disposition Disposition Code Departure Means Destination Home or Self Care (Not Going To Other HC Provider) documented in this encounter Plan of Treatment Upcoming Encounters Date Type Department Care Team (Late st Contact Info) Description 11/09/2024 12:15 PM READINESS PARAPROFESSIONAL Office Visit [facility] [place] [address] [place] [address] Cm Melton MD [address] [address] [phone] (work) documented as of this encounter Procedures Procedure Name Priority Date/Time Associated Diagnosis Comments MAMMO SCREENING BILATERAL W YASMIN Routine 11/08/2021 8:44 AM READINESS PARAPROFESSIONAL Encounter for screening mammogram for malignant neoplasm of breast documented in this encounter Results * MAMMO SCREENING BILATERAL W YASMIN (11/08/2021 8:44 AM READINESS PARAPROFESSIONAL) Anatomical Region Laterality Modality Breast Bilateral Mammography 11/08/2021 8:44 AM READINESS PARAPROFESSIONAL Impressions 11/08/2021 9:14 AM READINESS PARAPROFESSIONAL MAMMOGRAPHY ??BENIGN There is no mammographic evidence of malignancy. A 1 year screening mammogram is recommended. ?? MAMMOGRAPHY BI-RADS: 2 BENIGN Electronically Signed by: Shelia [place] M.D. ? jk/penrad:11/08/2021 09:14:34 ?? Casino Investigator: Margaux ??RT Tho(Damien)(M), [facility] letter sent: Normal Single Exam Narrative 11/08/2021 9:14 AM READINESS PARAPROFESSIONAL #[id number] - MAMMO SCREENING BILATERAL W YASMIN BILATERAL DIGITAL SCREENING MAMMOGRAM 3D/2D WITH CAD WITH MEDIOLATERAL OBLIQUE CRANIOCAUDAL: 11/08/2021 CLINICAL HISTORY:Routine annual screening mammogram - tomosynthesis. ?? COMPARISON: Comparison is made to exams dated: ??04/21/2020 mammogram, 12/18/2016 mammogram, 11/17/2015 mammogram, 11/15/2014 mammogram, and 10/25/2013 mammogram - [facility]. ?? BREAST COMPOSITION: There are scattered fibroglandular elements (ACR Breast Composition Category B) in both breasts. ?? [employer] Breast Composition Categories ??A [...] change. Procedure Note Shelia [place] MD - 11/08/2021 #[id number] - MAMMO SCREENING BILATERAL W YASMIN BILATERAL DIGITAL SCREENING MAMMOGRAM 3D/2D WITH CAD WITH MEDIOLATERALOBLIQUE CRANIOCAUDAL: 11/08/2021 CLINICAL HISTORY:Routine annual screening mammogram - tomosynthesis. COMPARISON: Comparison is made to exams dated: 04/21/2020 mammogram, 12/18/2016mammogram, 11/17/2015 mammogram, 11/15/2014 mammogram, and 10/25/2013mammogram - [facility]. BREAST COMPOSITION: There are scattered fibroglandular elements (ACRBreast Composition Category B) in both breasts. [employer] Breast Composition Categories A [...] been no significant interval change. IMPRESSION: MAMMOGRAPHY BENIGN There is no mammographic evidence of malignancy. A 1 year screeningmammogram is recommended. MAMMOGRAPHY BI-RADS: 2 BENIGN Electronically Signed by: Shelia gong/sadi:11/08/2021 09:14:34 Casino Investigator: RT Mai(R)(M), [facility] letter sent: Normal Single Exam Marissa Herrera MD IMG BI PROCEDURES documented in this encounter Visit Diagnoses Diagnosis Encounter for screening mammogram for malignant neoplasm of breast Other screening mammogram Palpitations- Primary Paroxysmal atrial fibrillation (CMD) Atrial fibrillation S/P ablation of atrial fibrillation Other postprocedural status PVCs (premature ventricular contractions) Other premature beats exterminator helper current use of antiarrhythmic drug exterminator helper current use of anticoagulant Encounter for long-term (current) use of anticoagulants STAR (obstructive sleep apnea) Obstructive sleep apnea (adult) (pediatric) documented in this encounter Care Teams Log Cut Off Sawyer Relationship Specialty Start Date End Date Jeison Orozco MD PCP - General 11/10/19 12/08/22 documented as of this encounter
--- OUTSIDE RECORDS SUMMARY | 2024-11-07 07:05 | XMS_ITS | Encounter Summary ---
Author Organization [facility] Address [address] [place] [id number] Care Team Providers Care Dive Supervisor Name Role Phone Qian Mathur MD Primary Care Provider [phone] Encounter Details Date Type Department Care Team (Late st Contact Info) Description 03/21/2023 Orders Only [facility] [address] [place] [address] Cm Melton MD [address] [phone] Paroxysmal atrial fibrillation (CMD) Social History Tobacco [...] st Contact Info) Description 11/09/2024 12:15 PM EMERGENCY TECHNICIAN Office Visit [facility] [address] [place] [address] Cm Melton MD [address] [phone] documented as of this encounter Procedures Procedure Name Priority Date/Time Associated Diagnosis Comments ELECTROCARDIOGRAM 12-LEAD Routine 03/20/2023 Paroxysmal atrial fibrillation (CMD) documented in this encounter Results * Electrocardiogram 12-Lead (03/20/2023) Cm Melton MD ECG ORDERABLES documented in this encounter Visit Diagnoses Diagnosis Paroxysmal atrial fibrillation (CMD) Atrial fibrillation Palpitations- Primary Paroxysmal atrial fibrillation (CMD) Atrial fibrillation S/P ablation of atrial fibrillation Other postprocedural status PVCs (premature ventricular contractions) Other premature beats 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
--- OUTSIDE RECORDS SUMMARY | 2024-11-07 07:05 | XMS_ITS | Encounter Summary ---
Author Organization [facility] Address [address] [place] [id number] Care Team Providers Care Hairspring Inspector Name Role Phone Qian Mathur MD Primary Care Provider [phone] Reason for Referral * Consult & Treatment (Routine) - Closed Specialty Diagnoses / Procedures Referred By Contac t Referred To Contact Cardiology Diagnoses Paroxysmal atrial fibrillation (CMD) Palpitations Procedures Event/Mobile Cardiac Service Secretary CARDIAC EVENT MONITOR Cm Melton MD [address] [address] Referral ID Status Reason Start Date Expiration Date Visits Re quested Visits Authorized [id number] Closed 03/20/2023 09/14/2024 1 1 * Consult & Treatment (Routine) - Closed Specialty Diagnoses / Procedures Referred By Contac t Referred To Contact Cardiology Diagnoses Paroxysmal atrial fibrillation (CMD) Procedures ECHOCARDIOGRAM STRESS TEST W/ W/O IMAGING AGENT Cm Melton MD [address] [address] Referral ID Status Reason Start Date Expiration Date Visits Re quested Visits Authorized [id number] Closed 03/20/2023 09/17/2024 1 1 * Radiology Services (Routine) - Closed Specialty Diagnoses / Procedures Referred By Contac t Referred To Contact Radiology-Diagnostic Radiology / Radiology Diagnoses Paroxysmal atrial fibrillation (CMD) Procedures CT HEART CALCIUM SCORING Cm Melton MD [address] [address] Referral ID Status Reason Start Date Expiration Date Visits Re quested Visits Authorized [id number] Closed 03/20/2023 09/20/2024 1 1 Reason for Visit * Reason Comments Consultation Atrial Fibrillation palpitations, SOB Encounter Details Date Type Department Care Team (Late st Contact Info) Description 03/20/2023 8:45 AM CDT Office Visit [facility] [address] [place] [address] Cm Melton MD [address] [phone] Paroxysmal atrial fibrillation (CMD) (Primary Dx); S/P ablation of atrial fibrillation; Palpitations; Dyspnea on exertion; STAR (obstructive sleep apnea) Social History Tobacco Use Types Packs/Day Years Used Date Smoking Tobacco: Never Smokeless Tobacco: Never Tobacco Cessation:Counseling Given: Not Answered Alcohol Use Standard Drinks/Week Comments Yes 0 [...] Sign Reading Time Taken Comments Blood Pressure 122/81 03/20/2023 8:44 AM CDT Pulse 62 03/20/2023 8:44 AM CDT Temperature - - Respiratory Rate - - Oxygen Saturation - - Inhaled Oxygen Concentration - - Weight 68.5 kg (151 lb) 03/20/2023 8:44 AM CDT Height - - Body Mass Index - - documented in this encounter Ordered Prescriptions Prescription Sig Dispensed Refills Start Date End Da te metoPROLOL succinate (Toprol XL) 25 MG 24 hr tablet Take 1 tablet by mouth daily. 90 tablet 3 03/20/2023 04/18/2023 documented in this encounter Progress Notes * Cm Melton MD - 03/20/2023 8:48 AM CDT Images from the original note were not included. Office Note Tonya Costello : 1960 PCP: Qian Mathur MD Reason for Visit: Chief Complaint Patient presents with ??? Consultation ??? Atrial Fibrillation palpitations, SOB History of Present Illness: Tonya Costello is a 62 year old woman who i saw as a new patient today. She was formerly followedby [facility] cardiology. She has a history of PAF, underwent an afib ablation in 2013. She last saw Dr Robles a year ago. She is not on any meds at this time. She comes in to see me because over the past year she has noted some increased CHRISTY and intermittent palpitations. Palpitations occur once or twicea month, last minutes to hours at a time. She denies chest pain. EKG today shows sinus rhythm at 66bpm. She denies angina, CP, presyncope or syncope. She has had covid 3 times. She has been on eliquis in the past, denies bleeding issues. She has been on beta blockers without issue in the past. She was on flecainide in the past but had side effects from it. She's been concerned about her CV health after her brother recently from an [place]. PMHx: No past medical history on file. PSHx: No past surgical history on file. Family Hx: No family history on file. Social Hx: reports that she has never smoked. She has never used smokeless tobacco. She reports current alcohol use. She reports that she does not use drugs. Allergies: ALLERGIES: Allergen Reactions ??? Penicillins RASH Medications: Current Outpatient Medications Medication Sig Dispense Refill ??? metoPROLOL succinate (Toprol XL) 25 MG 24 hr tablet Take 1 tablet by mouth daily. 90 tablet 3 No current facility-administered medications for this visit. Review of Systems: Review of Systems Constitutional: Negative for chills, fever, weight gain and weight loss. HENT: Negative for hearing loss. Eyes: Negative for blurred vision. Patient denies significant visual changes Cardiovascular: Positive for dyspnea on exertion, irregular heartbeat and palpitations. Negative for chest pain, claudication, near-syncope and syncope. Negative except for what's indicated in HPI Respiratory: Positive for shortness of breath. Negative for cough and hemoptysis. Hematologic/Lymphatic: Negative for bleeding problem. Does not bruise/bleed easily. Skin: Negative for rash and suspicious lesions. Musculoskeletal: Negative for arthritis. Gastrointestinal: Negative for hematochezia and melena. Genitourinary: Negative for hematuria. Neurological: Negative for light-headedness, loss of balance and weakness. No localized deficits Psychiatric/Behavioral: Negative for depression. Allergic/Immunologic: Negative for environmental allergies. No new food allergies All other systems were reviewed and were negative. Physical Exam: Visit Vitals BP 122/81 (BP Location: RUE - Right upper extremity, Patient Position: Sitting, Cuff Size: Large Adult) Pulse 62 Wt 68.5 kg (151 lb) Gen: no acute distress, comfortabe Neuro: alert and oriented x 3 HEENT: symmetric Mouth: membranes moist Neck: no jvd, no bruits CV: regular s1s2 no murmur or rub Pulm: clear; no rhonchi or wheezing GI: soft, non-tender, no rebound or guarding : no cva tenderness Gait: normal, adequate for ETT Ext: no sig edema Skin: no rashes Data: Former [facility] patient with palpitations new to cinda 03/18 ECHO 03/17: EF 60-65%; trace MR labs 08/17: LDL 105; TSH 1.4; Hgb 13; creat 0.7 Assessment/Plan: Tonya Costello is a 62 year old woman who i saw as a new patient today. She was formerly followedby [facility] cardiology. She has a history of PAF, underwent an afib ablation in 2013. She last saw Dr Robles a year ago. She is not on any meds at this time. She comes in to see me because over the past year she has noted some increased CHRISTY and intermittent palpitations. Palpitations occur once or twicea month, last minutes to hours at a time. She denies chest pain. EKG today shows sinus rhythm at 66bpm. Diagnosis: Patient Active Problem List Diagnosis ??? Paroxysmal atrial fibrillation (CMD) ??? S/P ablation of atrial fibrillation ??? Palpitations ??? STAR (obstructive sleep apnea) ??? 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 ??Suggest mildly increased risk for coronary artery disease. Electronically Signed by: MELISSA BURT M.D. Signed on: 05/20/2023 3:44 PM Workstation ID: [id number] Narrative 05/20/2023 3:[address] CORONARY CALCIUM SCORING CLINICAL INDICATION: None COMPARISON: There are no prior examinations currently available for comparison. NOTE: This test is intended for patients who are not having symptoms of heart disease. The results may not apply to patients who are having cardiac symptoms. This exam was designed to measure coronary artery calcifications. TECHNIQUE: Coronary artery calcium score exam was performed on a [employer] 64-channel computed tomography scanner with prospective EKG gated scanning without IV contrast. ??Scan was from the jt to the bottom of the heart with 120 KV with mAs of 73. ??Radiation dose DLP was 53.37. Automated exposure control and/or iterative reconstruction techniques were utilized as radiation dose reduction strategies on this patient. FINDINGS: Coronary Artery Calcium Scores: ? Left Main: 0 ? Left Anterior Descendin ? Left Circumflex: 0 ? Right Coronary Artery: 0 The total coronary calcium score is 4. Valve calcifications: None Non-coronary findings: ??Left hepatic lobe cyst measures 1.4 cm. Procedure Note Melissa Burt MD - 05/20/2023 CT CORONARY CALCIUM SCORING CLINICAL INDICATION: None COMPARISON: There are no prior examinations currently available for comparison. NOTE: This test is intended for patients who are not having symptoms of heart disease. The results may not apply to patients who are havingcardiac symptoms. This exam was designed to measure coronary arterycalcifications. TECHNIQUE: Coronary artery calcium score exam was performed on a [employer] 64-channel computed tomography scanner with prospective EKG gatedscanning without IV contrast. Scan was from the jt to the bottom of theheart with 120 KV with mAs of 73. Radiation dose DLP was 53.37. Automated exposure control and/or iterative reconstruction techniqueswere utilized as radiation dose reduction strategies on this patient. FINDINGS: Coronary Artery Calcium Scores: Left Main: 0 Left Anterior Descendin Left Circumflex: 0 Right Coronary Artery: 0 The total coronary calcium score is 4. Valve calcifications: None Non-coronary findings: Left hepatic lobe cyst measures 1.4 cm. IMPRESSION: Mild coronary artery plaque is identified (score of 1-99). Suggestmildly increased risk for coronary artery disease. Electronically Signed by: MELISSA BURT M.D. Signed on: 05/20/2023 3:44 PM Workstation ID: [id number] Cm Melton MD IMG CT PROCEDURES * ECHOCARDIOGRAM STRESS TEST W/CONTINUOUS EKG (05/13/2023 4:39 PM CDT) Predicted HR Max 156 BPM [facility] Impressions [facility] - 05/14/2023 8:50 AM CDT *[facility]* [address] [place] [address], [address] [place] [address] Stress Echocardiogram Patient: Tonya Costello ?Study Date/Time: ?May 13 2023 3:05PM ?SHENA#: ? [id number] : ? 1960 ? Ht/Wt: ?167.6cm 68.5kg Age: ? 62 ? BSA/BMI: ?1.79m^2 24.4kg/m^2 Gender: ??F ?Baseline BP: ?130 / 78 Ordering Physician: ?? Cm Melton Referring Physician: ??Cm Melton Steven Primary Physician: ?Qian Mathur MD Performing Physician: Gerald Arriaga MD Diagnostic Physician: Gerald Arriaga MD Tin Tie Machine Operator Automatic: ?BELEN Calderon Stress Sander Setter: ?? Yane Chaves MA INDICATIONS: ?? Atrial fibrillation. STUDY CONCLUSIONS SUMMARY: 1. Staged echo conclusions: Left ventricular ejection fraction was normal at ?? rest and with stress. There is no evidence for stress-induced ischemia. 2. Baseline ECG: NSR, HR-75, WNL. 3. Stress ECG conclusions: There was 1.5mm ST depression. There was no ?? significant arrhythmia. Loredo scoring: exercise time of 8 min; maximum ST ?? deviation of 1.5mm; no angina; resulting score is 1. 4. Procedure narrative: Exercise testing was performed using the Ramped Dano ?? protocol. The patient exercised for 7 min 57 sec, to protocol stage 3, to a ?? maximal work rate of 8.2mets. Exercise was terminated dyspnea. Post-stress ?? images obtained within 90 seconds of peak stress. 5. Left ventricle: The ejection fraction was measured by visual estimation. ?? The ejection fraction is 60%. 6. Stress data: Maximal heart rate during stress was 146bpm (94% of maximal ?? predicted heart rate). The maximal predicted heart rate was 156bpm. The ?? target heart rate was 133bpm. The target heart rate was achieved. The heart ?? rate response to stress is normal. The patient experienced dyspnea during ?? stress. STUDY DATA: ??[place] There is no prior study available for comparison at this time. ??Procedure: ?? A baseline ECG was recorded. Surface ECG leads and blood pressure measurements were monitored. Exercise testing was performed using the Ramped Dano protocol. The patient exercised for 7 min 57 sec, to protocol stage 3, to a maximal work rate of 8.2mets. Exercise was terminated dyspnea. Post-stress images obtained within 90 seconds of peak stress. A transthoracic stress echocardiogram was performed. Image quality was good. Images were captured at baseline and peak exercise. ??Study status: ??Routine. Consent: ??The risks, benefits, and alternatives to the procedure were explained to the patient. ??Study completion: ??There were no complications. FINDINGS BASELINE ECG: ??NSR, HR-75, WNL. STRESS ECG: ??There was 1.5mm ST depression. There was no significant arrhythmia. Loredo scoring: exercise time of 8 min; maximum ST deviation of 1.5mm; no angina; resulting score is 1. LEFT VENTRICLE: ? The ejection fraction was measured by visual estimation. The ejection fraction is 60%. STRESS RESULTS: ?? Maximal heart rate during stress was 146bpm (94% of maximal predicted heart rate). The maximal predicted heart rate was 156bpm. The target heart rate was 133bpm. The target heart rate was achieved. The heart rate response to stress is normal. There is a normal resting blood pressure with an appropriate response to stress. The rate-pressure product for the peak heart rate and blood pressure was 42530zy Hg/min. The patient experienced dyspnea during stress. Functional capacity is normal. STRESS PROTOCOL: + + + +---+ + + !Stage ?!Time into test!Time into phase!HR !BP ? !Symptoms ?! + + + +---+ + + !Baseline ? !00:00 ? !00:00 ?!80 !130/78 (95)!No symptoms.! + + + +---+ + + !Stage 1 ?!03:00 ? !03:00 ?!94 !120/78 (92)! ! + + + +---+ + + !Stage 2 ?!03:00 ? !03:00 ?!126!140/78 (99)!Dyspnea. ?! + + + +---+ + + !Stage 3 ?!02:09 ? !02:09 ?!146! ! ! + + + +---+ + + !Peak stress ?! ! !146!140/ (99)! ! + + + +---+ + + !Recovery; 2 min!02:00 ? !02:00 ?!---!150/70 (97)! ! + + + +---+ + + !Recovery; 4 min!04:00 ? !04:00 ?!---!104/78 (87)! ! + + + +---+ + + Baseline: Left ventricle: ??Cavity size is normal. Systolic function is normal. Normal wall motion; no regional wall motion abnormalities. Peak stress: Left ventricle: ??Cavity size is normal. Systolic function is vigorous and appropriately augmented from baseline. Normal wall motion; no regional wall motion abnormalities. No evidence for new regional wall motion abnormalities. STRESS ECHO RESULTS: ? Left ventricular ejection fraction was normal at rest and with stress. There is no evidence for stress-induced ischemia. Measurements Left ventricle ? Value ?? Ref EF ? (N) 60 ?% 54 - 74 Legend: (L) ??and ??(H) ??stewart values outside specified reference range. (N) ??godinez values inside specified reference range. Prepared and electronically signed by Gerald Arriaga MD 05/14/2023 08:50 Narrative Procedure Note Gerald Arriaga MD - 05/14/2023 *[facility]* [address] [place] [address], [address] [place] [address] Stress Echocardiogram Patient: Tonya Costello Study Date/Time: May 13 2023 3:05PM : 1960 Ht/Wt: 167.6cm 68.5kg Age: 62 BSA/BMI: 1.79m^2 24.4kg/m^2 Gender: F Baseline BP: 130 / 78 Ordering Physician: Cm Melton Referring Physician: Cm Melton Steven Primary Physician: Qian Mathur MD Performing Physician: Gerald Arriaga MD Diagnostic Physician: Gerald Arriaga MD Tin Tie Machine Operator Automatic: BELEN Calderon Stress Sander Setter: Yane Chaves MA INDICATIONS: Atrial fibrillation. STUDY CONCLUSIONS SUMMARY: 1. Staged echo conclusions: Left ventricular ejection fraction was normalat rest and with stress. There is no evidence for stress-inducedischemia. 2. Baseline ECG: NSR, HR-75, WNL. 3. Stress ECG conclusions: There was 1.5mm ST depression. There was no significant arrhythmia. Loredo scoring: exercise time of 8 min; maximumST deviation of 1.5mm; no angina; resulting score is 1. 4. Procedure narrative: Exercise testing was performed using the RampedBruce protocol. The patient exercised for 7 min 57 sec, to protocol stage 3,to a maximal work rate of 8.2mets. Exercise was terminated dyspnea.Post-stress images obtained within 90 seconds of peak stress. 5. Left ventricle: The ejection fraction was measured by visualestimation. The ejection fraction is 60%. 6. Stress data: Maximal heart rate during stress was 146bpm (94% ofmaximal predicted heart rate). The maximal predicted heart rate was 156bpm.The target heart rate was 133bpm. The target heart rate was achieved. Theheart rate response to stress is normal. The patient experienced dyspneaduring stress. STUDY DATA: [place] There is no prior study available forcomparison at this time. Procedure: A baseline ECG was recorded. Surface ECG leadsand blood pressure measurements were monitored. Exercise testing wasperformed using the Ramped Dano protocol. The patient exercised for 7 min 57 sec,to protocol stage 3, to a maximal work rate of 8.2mets. Exercise wasterminated dyspnea. Post-stress images obtained within 90 seconds of peak stress. A transthoracic stress echocardiogram was performed. Image quality wasgood. Images were captured at baseline and peak exercise. Study status:Routine. Consent: The risks, benefits, and alternatives to the procedure were explained to the patient. Study completion: There were nocomplications. FINDINGS BASELINE ECG: NSR, HR-75, WNL. STRESS ECG: There was 1.5mm ST depression. There was no significant arrhythmia. Loredo scoring: exercise time of 8 min; maximum ST deviationof 1.5mm; no angina; resulting score is 1. LEFT VENTRICLE: The ejection fraction was measured by visualestimation. The ejection fraction is 60%. STRESS RESULTS: Maximal heart rate during stress was 146bpm (94% ofmaximal predicted heart rate). The maximal predicted heart rate was 156bpm. Thetarget heart rate was 133bpm. The target heart rate was achieved. The heartrate response to stress is normal. There is a normal resting blood pressurewith an appropriate response to stress. The rate-pressure product for the peakheart rate and blood pressure was 80899be Hg/min. The patient experienceddyspnea during stress. Functional capacity is normal. STRESS PROTOCOL: + + + +---+ + + !Stage !Time into test!Time into phase!HR !BP !Symptoms! + + + +---+ + + !Baseline !00:00 !00:00 !80 !130/78 (95)!Nosymptoms.! + + + +---+ + + !Stage 1 !03:00 !03:00 !94 !120/78(92)! ! + + + +---+ + + !Stage 2 !03:00 !03:00 !126!140/78 (99)!Dyspnea.! + + + +---+ + + !Stage 3 !02:09 !02:09!146! ! ! + + + +---+ + + !Peak stress ! ! !146!140/78(99)! ! + + + +---+ + + !Recovery; 2 min!02:00 !02:00 !---!150/70(97)! ! + + + +---+ + + !Recovery; 4 min!04:00 !04:00 !---!104/78(87)! ! + + + +---+ + + Baseline: Left ventricle: Cavity size is normal. Systolic function is normal.Normal wall motion; no regional wall motion abnormalities. Peak stress: Left ventricle: Cavity size is normal. Systolic function is vigorousand appropriately augmented from baseline. Normal wall motion; no regionalwall motion abnormalities. No evidence for new regional wall motionabnormalities. STRESS ECHO RESULTS: Left ventricular ejection fraction was normal atrest and with stress. There is no evidence for stress-induced ischemia. Measurements Left ventricle Value Ref EF (N) 60 % 54 - 74 Legend: (L) and (H) stewart values outside specified reference range. (N) godinez values inside specified reference range. Prepared and electronically signed by Gerald Arriaga MD 05/14/2023 08:50 Cm Melton MD CV ECHO ORDERABLES Performing Organization Address City/State/[facility] Co de Phone Number [facility] * CARDIAC EVENT MONITOR - NO CHARGE NO REPORT (04/11/2023 8:17 AM CDT) Narrative Aftab Frey DO - 05/13/2023 11:31 AM CDT Images from the original result were not included. 30 Day Event Monitor Date of Service: 04/12/2023-05/11/2023 Ordering Physician: Cm Hollins MD Reason for Examination: Palpitations Quality of Study: Good Time Monitored: 29 days, 9 hours, 46 minutes. Baseline Heart Rhythm: Normal Sinus Rhythm. Average Heart Rate: 69 BPM Minimum Heart Rate: 50 BPM Maximum Heart Rate: 120 BPM Pauses: None Arrhythmia: Runs of PAF, <0.1% burden PAC Reno: <1% PVC Reno: 1% Impression: 1) The primary rhythm is sinus rhythm 2) Occasional ectopy, brief runs of PAF, <0.1% burden 3) Symptoms: No symptoms correlating to arrhythmia Aftab Frey D.O., TangelaCBharathCBharath [facility] Procedure Note Aftab Frey DO - 05/13/2023 Images from the original note were not included. 30 Day Event Monitor Date of Service: 04/12/2023-05/11/2023 Ordering Physician: Cm Hollins MD Reason for Examination: Palpitations Quality of Study: Good Time Monitored: 29 days, 9 hours, 46 minutes. Baseline Heart Rhythm: Normal Sinus Rhythm. Average Heart Rate: 69 BPM Minimum Heart Rate: 50 BPM Maximum Heart Rate: 120 BPM Pauses: None Arrhythmia: Runs of PAF, <0.1% burden PAC Reno: <1% PVC Reno: 1% Impression: 1) The primary rhythm is sinus rhythm 2) Occasional ectopy, brief runs of PAF, <0.1% burden 3) Symptoms: No symptoms correlating to arrhythmia Aftab Frey D.O., F.A.CBharathCBharath [facility] Cm Melton MD CV CARD SERVICES * Electrocardiogram 12-Lead (03/20/2023) Cm Melton MD ECG ORDERABLES documented in this encounter Visit Diagnoses Diagnosis Paroxysmal atrial fibrillation (CMD)- Primary Atrial fibrillation S/P ablation of atrial fibrillation Other postprocedural status Palpitations Dyspnea on exertion Other dyspnea and respiratory abnormality STAR (obstructive sleep apnea) Obstructive sleep apnea (adult) (pediatric) Paroxysmal atrial fibrillation (CMD) Atrial fibrillation Palpitations Paroxysmal atrial fibrillation (CMD) Atrial fibrillation Paroxysmal atrial fibrillation (CMD) Atrial fibrillation Palpitations- Primary Paroxysmal atrial fibrillation (CMD) Atrial fibrillation S/P ablation of atrial fibrillation Other postprocedural status PVCs (premature ventricular contractions) Other premature beats termite control servicer current use of antiarrhythmic drug FDC current use of anticoagulant Encounter for long-term (current) use of anticoagulants STAR (obstructive sleep apnea) Obstructive sleep apnea (adult) (pediatric) documented in this encounter Care Teams Hairspring Inspector Relationship Specialty Start Date End Date Qian Mathur MD [address] [address] PCP - General Internal Medicine 12/09/22 01/08/24 documented as of this encounter
--- OUTSIDE RECORDS SUMMARY | 2024-11-07 07:05 | XMS_ITS | Encounter Summary ---
Author Organization [facility] Address [address] [place] [id number] Care Team Providers Care Baby Formula Mixer Name Role Phone Sona Saenz MD Primary Care Provider [phone] Reason for Visit * Reason Comments Palpitations * Authorization/Certification (Routine) Specialty Diagnoses / Procedures Referred By Contac t Referred To Contact Diagnoses Atrial fibrillation (CMD) Atrial fibrillation with rapid ventricular response (CMD) Referral ID Status Reason Start Date Expiration Date Visits Re quested Visits Authorized [id number] 1 1 Encounter Details Date Type Department Care Team (Late st Contact Info) Description 06/05/2024 11:07 PM CDT - 06/06/2024 5:30 PM CDT Hospital Encounter [facility] [address] [place] [address] Kendrick Turner MD [facility] [place] [address] Bhavik Valero MD [address] [place] [address] [id number] Courtney Kahn DO [address] [place] [address] [id number] Rosemary Vale RN Baig, Mirza A, MD [address] [place] [address] Edwige Bright RN [place], [place] [address] Tyree Perea Erin E, RN Gissel, Abby Walters, RN Jovanna Mata, Carrol Pratt, Bessie Maravilla, Isiah Grullon, ASHLY Melton, Cm Whatley, [address] [address] Discharge Disposition: Home or Self Care Social [...] phone, visiting friends or family, going to lutheran or club meetings) 5 or more times [...] be sent through Care Everywhere. * APIXABAN (FILIPINO) * PROPAFENONE HYDROCHLORIDE ORAL TABLET (FILIPINO) * Atrial Fibrillation, Discharge Instructions for (Luxembourger) documented in this encounter Medications at Time of Discharge Medication Sig Dispensed Refills Start Date End Date propafenone (RYTHMOL SR) 225 MG 12 hr capsule Take 1 capsule by mouth in the morning and 1 capsule in the evening. 180 capsule 3 06/06/2024 apixaBAN (Eliquis) 5 MG Tab Take 1 tablet by mouth every 12 hours. 180 tablet 3 06/06/2024 06/08/2024 metoPROLOL succinate (Toprol XL) 25 MG 24 hr tablet Take 1 tablet by mouth daily. 90 tablet 3 06/26/2023 09/09/2024 documented as of this encounter Discharge Disposition Disposition Code Departure Means Destination Comment s Home or Self Care ([facility]) home documented in this encounter Progress Notes * [...] chloride infusion Solution 10 mg/hr Intravenous Continuous Kendrick Turner MD Stopped at 06/06/24 0558 aspirin (ECOTRIN) [...] 68 QT-Interval (MSEC) 308 QTc 433 R [place] (Degrees) 39 T [place] (Degrees) 0 REPORT TEXT Atrial fibrillation with rapid ventricular response Septal infarct , age undetermined Abnormal ECG No previous ECGs available Electrocardiogram 12-Lead Collection Time: 06/05/24 11:07 PM Result Value Ref Range Ventricular Rate EKG/Min (BPM) 119 QRS-Interval (MSEC) 68 QT-Interval (MSEC) 308 QTc 433 R [place] (Degrees) 39 T [place] (Degrees) 0 REPORT TEXT Atrial fibrillation with [...] Percent 46 % Lymphocytes, Percent 40 % Hunt, Percent 8 % Eosinophils, Percent 5 % [...] Percent 45 % Lymphocytes, Percent 40 % Hunt, Percent 9 % Eosinophils, Percent 5 % [...] Signed on: 06/05/2024 11:39 PM Workstation ID: [id number] Diagnostics Assessment and Plan Tonya Costello is [...] CARDIOLOGY CONSULT NAME: Tonya Costello - ROOM: 300/ - - Age: [age] year old - [...] age Allergy: ALLERGIES: Allergen Reactions Penicillins RASH CONTROL INSPECTOR Meds: Medications Prior to Admission Medication [...] chloride infusion Solution 10 mg/hr Intravenous Continuous Kendrick Turner MD Stopped at 06/06/24 0558 PRN Medication: [...] and were without gross abnormalities. Recent Labs 06/05/24 23206/06/24 0450 WBC 5.1 4.7 HGB 12.2 12.5 MCV 94.7 95.0 PLT 223 218 Recent Labs 06/05/24 2328 06/06/24 0450 CO2 27 27 BUN 9 7 [...] in this encounter ED Notes * Jaqueline Veras, RN - 06/06/2024 2:13 AM CDT ED [...] LIVING SITUATION: home with OTHER: PREFERRED LANGUAGE: Luxembourger PRONOUN: [] He/Him/His/Himself [x] She/Her/Hers/Herself [] They/Their/Theirs/Themself [...] patients above the age of 50, the [employer] recommends using age adjusted cutoff values. AGE X 0.01 calculates the age adjusted cutoff value in mg/L for these patient populations. CBC WITH DIFFERENTIAL Narrative: The following orders were created for panel order CBC with Automated Differential. Procedure Abnormality Status --------- ------ CBC with Automated Dif...[[id number]] Abnormal Final result Please view results for these tests on the individual orders. BASIC METABOLIC PANEL RAINBOW DRAW Narrative: The following orders were created for panel order [place] Draw Light Blue Top Collected? 1 Label; Red Top Collected? No Labels; Light Green Top Collected? No Labels; Lavender Top Collected? No Labels; Gold Top Collected? 1 Label; [place] Top Collected? No Labels; Sanchez Top Collected? No Labels. 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 Reports that she recently returned home from [place]. Denies lower extremity swelling or pain. No [...] Depression: Not at risk (12/17/2021) [facility] PHQ-2 SCORE: 0 Utilities: Not on file FAMILY HISTORY History reviewed. No pertinent family history. Past medical, family, and social histories as documented in the EMR reviewed and verified. OBJECTIVE ED Triage Vitals ED Triage Vitals Group Temp 06/05/242301 97.8 ??F (36.6 ??C) Heart Rate 06/05/242301 (!) 115 Resp 06/05/242301 18 BP 06/05/242301 (!) 165/70 SpO2 06/05/242301 98 % EtCO2 mmHg -- Height -- [...] 0 Neutrophil, Percent 46 Lymphocytes, Percent 40 Hunt, Percent 8 Eosinophils, Percent 5 Basophils, Percent [...] Signed on: 06/05/2024 11:39 PM Workstation ID: [id number] Narrative: EXAM: XR CHEST AP OR PA [...] DEC action: Bolus from Bag KENDRICK TURNER Administrative Nursing Supervisor Interpretation: I have independently interpreted the patients court monitor. The patient's rhythm shows atrial fibrillation Oxygen Saturation was 98% on RA, interpreted by me as normal. 12 lead EKG interpretation by ED Physician: Date/Time: Performed by: Kendrick Turner MD Authorized by: Kendrick Turner MD ECG reviewed by ED Physician in the absence of a newcomer hostess: yes Previous ECG: Previous ECG: Interpretation: Interpretation: [...] including but not limited to PharmD, PA, BARTOLOME, RN and MDswhen appropriate. 63 year old [...] Medical necessity for acute care Refer to SAGAR/SARAI Flowsheet for objective data. Medical History Past [...] BCBS MEDICARE ADVANTAGE Secondary: N/A Disposition Recommendations: SAGAR/SARAI recommendation for discharge: Home * PLAN OF [...] st Contact Info) Description 11/09/2024 12:15 PM BEAN ROASTER Office Visit [facility] [place] [address] [place] [phone] Cm Melton MD [address] [address] Scheduled Orders Name Type Priority Associated Diagnoses Orde r Schedule Electrocardiogram 12-Lead EKG STAT If condition met for 1 Occurrences starting 06/06/2024 documented as of this encounter Procedures Procedure [...] HIGH SENSITIVITY STAT 06/05/2024 11:28 PM CDT RAINBOW DRAW [...] CDT documented in this encounter Results * Electrocardiogram 12-Lead (06/06/2024 2:12 PM CDT) Ventricular Rate EKG/Min (BPM) 62 MUSE Atrial Rate (BPM) 62 MUSE NV-Interval (MSEC) 206 MUSE QRS-Interval (MSEC) 84 MUSE QT-Interval (MSEC) 408 MUSE QTc 414 MUSE P [place] (Degrees) 62 MUSE R [place] (Degrees) 44 MUSE T [place] (Degrees) 47 MUSE REPORT TEXT Normal sinus rhythm Borderline ECG When compared with ECG of 05-JUN-2024 23:07, Sinus rhythm has replaced Atrial fibrillation Vent. rate has decreased BY ??57 BPM Criteria for Septal infarct are no longer present Nonspecific T wave abnormality, improved in Anterior leads Confirmed by Thai WILKS OWAIS ([id number]) on 06/07/2024 11:44:11 AM MUSE 06/06/2024 2:12 PM CDT Courtney H Kahn DO ECG ORDERABLES MUSE * CBC with Automated Differential (performable only) (06/06/2024 4:50 AM CDT) Pathologist [facility] WBC 4.7 4.2 - 11.0 K/mcL 06/06/2024 5:30 AM CDT [facility] RBC 4.04 4.00 - 5.20 mil/mcL 06/06/2024 5:30 AM CDT [facility] HGB 12.5 12.0 - 15.5 g/dL 06/06/2024 5:30 AM CDT [facility] HCT 38.4 36.0 - 46.5 % 06/06/2024 5:30 AM CDT [facility] MCV 95.0 78.0 - 100.0 fl 06/06/2024 5:30 AM CDT [facility] MCH 30.9 26.0 - 34.0 pg 06/06/2024 5:30 AM CDT [facility] MCHC 32.6 32.0 - 36.5 g/dL 06/06/2024 5:30 AM CDT [facility] RDW-CV 13.9 11.0 - 15.0 % 06/06/2024 5:30 AM CDT [facility] RDW-SD 48.9 39.0 - 50.0 fL 06/06/2024 5:30 AM CDT [facility] PLT 218 140 - 450 K/mcL 06/06/2024 5:30 AM CDT [facility] NRBC 0 <=0 /100 WBC 06/06/2024 5:30 AM CDT [facility] Neutrophil, Percent 45 % 06/06/2024 5:30 AM CDT [facility] Lymphocytes, Percent 40 % 06/06/2024 5:30 AM CDT [facility] Hunt, Percent 9 % 06/06/2024 5:30 AM CDT [facility] Eosinophils, Percent 5 % 06/06/2024 5:30 AM CDT [facility] Basophils, Percent 1 % 06/06/2024 5:30 AM CDT [facility] Immature Granulocytes 0 % 06/06/2024 5:30 AM CDT [facility] Absolute Neutrophils 2.1 1.8 - 7.7 K/mcL 06/06/2024 5:30 AM CDT [facility] Absolute Lymphocytes 1.9 1.0 - 4.0 K/mcL 06/06/2024 5:30 AM CDT [facility] Absolute Monocytes 0.4 0.3 - 0.9 K/mcL 06/06/2024 5:30 AM CDT [facility] Absolute Eosinophils 0.2 0.0 - 0.5 K/mcL 06/06/2024 5:30 AM CDT [facility] Absolute Basophils 0.0 0.0 - 0.3 K/mcL 06/06/2024 5:30 AM CDT [facility] Absolute Immature Granulocytes 0.0 0.0 - 0.2 K/mcL 06/06/2024 5:30 AM CDT [facility] Blood VENOUS BLOOD SPECIMEN / Unknown Venipuncture / Unknown 06/06/2024 4:50 AM CDT 06/06/2024 5:19 AM CDT Narrative [facility] - 06/06/2024 5:30 AM CDT This is an appended report. ??These results have been appended to a previously verified report. Bhavik Valero MD BKR LAB BLOOD ORDERA BLES [facility] [place] [id number] [place] [address] * Basic Metabolic Panel (06/06/2024 4:50 AM CDT) Fasting Status 06/06/2024 5:47 AM CDT [facility] Sodium 139 135 - 145 mmol/L 06/06/2024 5:47 AM CDT [facility] Potassium 3.7 3.4 - 5.1 mmol/L 06/06/2024 5:47 AM CDT [facility] Chloride 109 97 - 110 mmol/L 06/06/2024 5:47 AM CDT [facility] Carbon Dioxide 27 21 - 32 mmol/L 06/06/2024 5:47 AM CDT [facility] Anion Gap 7 7 - 19 mmol/L 06/06/2024 5:47 AM CDT [facility] Glucose 93 70 - 99 mg/dL 06/06/2024 5:47 AM CDT [facility] BUN 7 6 - 20 mg/dL 06/06/2024 5:47 AM CDT [facility] Creatinine 0.60 0.51 - 0.95 mg/dL 06/06/2024 5:47 AM CDT [facility] Glomerular Filtration Rate >90 >=60 06/06/2024 5:47 AM CDT [facility] Comment:eGFR results = or >6 0 mL/min/1.73m2 = Normal kidney function. Estimated GFR calculated using the CKD-EPI-R (2020) equation that does not include race in the creatinine calculation. BUN/Cr 12 7 - 25 06/06/2024 5:47 AM CDT [facility] Calcium 8.8 8.4 - 10.2 mg/dL 06/06/2024 5:47 AM CDT [facility] Blood VENOUS BLOOD SPECIMEN / Unknown Venipuncture / Unknown 06/06/2024 4:50 AM CDT 06/06/2024 5:19 AM CDT Bhavik Valero MD BKR LAB BLOOD ORDERA BLES Performing Organization Address City/State/[facility] Co de Phone Number [place] [phone] [place] [address] * (ABNORMAL) CBC with Automated Differential (performable only) (06/05/2024 11:29 PM CDT) WBC 5.1 4.2 - 11.0 K/mcL 06/05/2024 11:42 PM CDT [facility] RBC 3.95(L) 4.00 - 5.20 mil/mcL 06/05/2024 11:42 PM CDT [facility] HGB 12.2 12.0 - 15.5 g/dL 06/05/2024 11:42 PM CDT [facility] HCT 37.4 36.0 - 46.5 % 06/05/2024 11:42 PM CDT [facility] MCV 94.7 78.0 - 100.0 fl 06/05/2024 11:42 PM CDT [facility] MCH 30.9 26.0 - 34.0 pg 06/05/2024 11:42 PM CDT [facility] MCHC 32.6 32.0 - 36.5 g/dL 06/05/2024 11:42 PM CDT [facility] RDW-CV 13.7 11.0 - 15.0 % 06/05/2024 11:42 PM CDT [facility] RDW-SD 48.4 39.0 - 50.0 fL 06/05/2024 11:42 PM CDT [facility] PLT 223 140 - 450 K/mcL 06/05/2024 11:42 PM CDT [facility] NRBC 0 <=0 /100 WBC 06/05/2024 11:42 PM CDT [facility] Neutrophil, Percent 46 % 06/05/2024 11:42 PM CDT [facility] Lymphocytes, Percent 40 % 06/05/2024 11:42 PM CDT [facility] Hunt, Percent 8 % 06/05/2024 11:42 PM CDT [facility] Eosinophils, Percent 5 % 06/05/2024 11:42 PM CDT [facility] Basophils, Percent 1 % 06/05/2024 11:42 PM CDT [facility] Immature Granulocytes 0 % 06/05/2024 11:42 PM CDT [facility] Absolute Neutrophils 2.3 1.8 - 7.7 K/mcL 06/05/2024 11:42 PM CDT [facility] Absolute Lymphocytes 2.0 1.0 - 4.0 K/mcL 06/05/2024 11:42 PM CDT [facility] Absolute Monocytes 0.4 0.3 - 0.9 K/mcL 06/05/2024 11:42 PM CDT [facility] Absolute Eosinophils 0.3 0.0 - 0.5 K/mcL 06/05/2024 11:42 PM CDT [facility] Absolute Basophils 0.0 0.0 - 0.3 K/mcL 06/05/2024 11:42 PM CDT [facility] Absolute Immature Granulocytes 0.0 0.0 - 0.2 K/mcL 06/05/2024 11:42 PM CDT [facility] Blood VENOUS BLOOD SPECIMEN / Unknown Venipuncture / Unknown 06/05/2024 11:29 PM CDT 06/05/2024 11:38 PM CDT Kendrick Turner MD BKR LAB BLOOD ORDERA BLES [facility] [address] [place] [address] * Thyroid Stimulating Hormone Reflex (06/05/2024 11:28 PM CDT) [facility] TSH 4.850 0.350 - 5.000 mcUnits/mL 06/06/2024 3:53 AM CDT [facility] Comment: Findings most consistent with euthyroid [...] 06/05/2024 11:37 PM CDT Bhavik Valero MD BKDamien LAB BLOOD ORDERA BLES Performing Organization Address City/[facility] Co de Phone Number [address] [address] * D Dimer, Quantitative (06/05/2024 11:28 PM CDT) [facility] D Dimer, Quantitative <0.19 <0.57 mg/L (FEU) 06/05/2024 11:59 PM CDT [facility] Blood VENOUS BLOOD SPECIMEN / Unknown Venipuncture / Unknown 06/05/2024 11:28 PM CDT 06/05/2024 11:37 PM CDT Narrative [facility] - 06/05/2024 11:59 PM CDT Values < 0.50 mg/L(FEU) may be useful to help exclude DVT or PE in patients at low clinical risk for these disorders. For patients above the age of 50, the [employer] recommends using age adjusted cutoff values. AGE X 0.01 calculates the age adjusted cutoff value in mg/L for these patient populations. Kendrick Turner MD BKDamien LAB BLOOD ORDERA BLES [address] [address] * Gold Top (06/05/2024 11:28 PM CDT) Extra Tube Hold for Add Ons 06/06/2024 8:01 AM CDT [facility] Blood VENOUS BLOOD SPECIMEN / Unknown Venipuncture / Unknown 06/05/2024 11:28 PM CDT 06/05/2024 11:37 PM CDT Kendrick Turner MD BKR LAB BLOOD ORDERA BLES Performing Organization Address City/[facility]/ZIP Co de Phone Number [address] [address] * Light Blue Top (06/05/2024 11:28 PM CDT) Extra Tube Hold for Add Ons 06/06/2024 8:01 AM CDT [facility] Blood VENOUS BLOOD SPECIMEN / Unknown Venipuncture / Unknown 06/05/2024 11:28 PM CDT 06/05/2024 11:37 PM CDT Kendrick Turner MD BKR LAB BLOOD ORDERA BLES [address] [address] * Magnesium (06/05/2024 11:28 PM CDT) Magnesium 2.1 1.7 - 2.4 mg/dL 06/06/2024 12:02 AM CDT [facility] Blood VENOUS BLOOD SPECIMEN / Unknown Venipuncture / Unknown 06/05/2024 11:28 PM CDT 06/05/2024 11:37 PM CDT Kendrick Turner MD BKR LAB BLOOD ORDERA BLES [address] [address] * (ABNORMAL) NT proBNP (06/05/2024 11:28 PM CDT) NT-proBNP 130(H) <=125 pg/mL 06/06/2024 12:02 AM CDT [facility] Blood VENOUS BLOOD SPECIMEN / Unknown Venipuncture / Unknown 06/05/2024 11:28 PM CDT 06/05/2024 11:37 PM CDT Kendrick Turner MD BKR LAB BLOOD ORDERA BLES Performing Organization Address City/[facility]/ZIP Co de Phone Number [address] [address] * TROPONIN I, HIGH SENSITIVITY (06/05/2024 11:28 PM CDT) Pathologist [facility] Troponin I, High Sensitivity 7 <52 ng/L 06/06/2024 12:02 AM CDT [facility] Blood VENOUS BLOOD SPECIMEN / Unknown Venipuncture / Unknown 06/05/2024 11:28 PM CDT 06/05/2024 11:37 PM CDT Kendrick Turner MD BKR LAB BLOOD ORDERA BLES [address] [address] * Basic Metabolic Panel (06/05/2024 11:28 PM CDT) Pathologist [facility] Fasting Status 06/06/2024 12:02 AM CDT [facility] Sodium 140 135 - 145 mmol/L 06/06/2024 12:02 AM CDT [facility] Potassium 3.7 3.4 - 5.1 mmol/L 06/06/2024 12:02 AM CDT [facility] Chloride 109 97 - 110 mmol/L 06/06/2024 12:02 AM CDT [facility] Carbon Dioxide 27 21 - 32 mmol/L 06/06/2024 12:02 AM CDT [facility] Anion Gap 8 7 - 19 mmol/L 06/06/2024 12:02 AM CDT [facility] Glucose 98 70 - 99 mg/dL 06/06/2024 12:02 AM CDT [facility] BUN 9 6 - 20 mg/dL 06/06/2024 12:02 AM CDT [facility] Creatinine 0.61 0.51 - 0.95 mg/dL 06/06/2024 12:02 AM CDT [facility] Glomerular Filtration Rate >90 >=60 06/06/2024 12:02 AM CDT [facility] Comment:eGFR results = or >6 0 mL/min/1.73m2 = Normal kidney function. Estimated GFR calculated using the CKD-EPI-R (2020) equation that does not include race in the creatinine calculation. BUN/Cr 15 7 - 25 06/06/2024 12:02 AM CDT [facility] Calcium 9.0 8.4 - 10.2 mg/dL 06/06/2024 12:02 AM CDT [facility] Blood VENOUS BLOOD SPECIMEN / Unknown Venipuncture / Unknown 06/05/2024 11:28 PM CDT 06/05/2024 11:37 PM CDT Kendrick Turner MD BKR LAB BLOOD ORDERA BLES Performing Organization Address City/State/[facility] Co de Phone Number [facility] [address] [address] * XR CHEST PA OR AP 1 [...] Signed on: 06/05/2024 11:39 PM Workstation ID: [id number] Narrative 06/05/2024 11:39 PM CDT EXAM: XR [...] Signed on: 06/05/2024 11:39 PM Workstation ID: [id number] Kendrick Turner MD IMG XR PROCEDURES * Electrocardiogram 12-Lead (06/05/2024 11:07 PM CDT) Ventricular Rate EKG/Min (BPM) 119 MUSE QRS-Interval (MSEC) 68 MUSE QT-Interval (MSEC) 308 MUSE QTc 433 MUSE R [place] (Degrees) 39 MUSE T [place] (Degrees) 0 MUSE REPORT TEXT Atrial fibrillation with rapid ventricular response Septal infarct , age undetermined Abnormal ECG No previous ECGs available Confirmed by CM MELTON MD ([id number]) on 06/06/2024 2:15:16 PM MUSE 06/05/2024 11:0 7 PM CDT Courtney Cornelia Femi ESCALANTE ECG ORDERABLES Performing Organization Address City/State/[facility] Co de Phone Number MUSE * Electrocardiogram 12-Lead (06/05/2024 11:07 PM CDT) Ventricular Rate EKG/Min (BPM) 119 MUSE QRS-Interval (MSEC) 68 MUSE QT-Interval (MSEC) 308 MUSE QTc 433 MUSE R [place] (Degrees) 39 MUSE T [place] (Degrees) 0 MUSE REPORT TEXT Atrial fibrillation with rapid ventricular response Septal infarct , age undetermined Abnormal ECG No previous ECGs available Confirmed by CM MELTON MD ([id number]) on 06/06/2024 2:15:11 PM MUSE 06/05/2024 11:0 7 PM CDT Marco Zamora MD ECG ORDERABLES Performing Organization Address City/[facility] Co de Phone Number MUSE documented in this encounter Visit Diagnoses Diagnosis Atrial fibrillation (CMD)- Primary Atrial fibrillation Atrial fibrillation with rapid ventricular response (CMD) Atrial fibrillation Palpitations- Primary Paroxysmal atrial fibrillation (CMD) Atrial fibrillation S/P ablation of atrial fibrillation Other postprocedural status PVCs (premature ventricular contractions) Other premature beats 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 Stop Taking at Discharge 06/06/2024 documented as of this encounter Active and Recently Administered Medications [...] 50 0912 (Given - Provid er: Abby Chauhan RN) propafenone (RYTHMOL SR) capsule 225 mg [...] 0900 1057 (Given - Provid er: Abby Chauhan RN) Continuous Medication Order 06/04/2024 06/05/2024 06/06/2024 [...] Higuera RN)0350 (Rate/Dose Verify - Provider: Edwige Bright, CASSIE)0558 (Stopped - Provider: Edwige Bright RN) PRN [...] from ALL sources. documented in this encounter Orders Medications Ordered That Pastor ht Not Have Been Administered Count Last Ordered Date First Ordered Date acetaminophen (TYLENOL) suppository 650 mg 1 06/06/2024 aspirin (ECOTRIN) enteric co ated tablet 81 mg 1 06/06/2024 enoxaparin (LOVENOX) injection 40 mg 1 05/27 propafenone (RYTHMOL SR) capsule 225 mg 1 0 06/06/2024 sodium chloride (NORMAL SALI NE) 0.9 % bolus 500 mL 1 06/06/2024 sodium chloride 0.9 % flush bag 25 mL 1 08/2024 Consult Count Last Ordered Date First Orde red Date IP CONSULT TO CARDIOLOGY 1 06/06/2024 Admission Count Last Ordered Date First Orde red Date ADMIT TO INPATIENT 1 06/06/2024 Discharge Count Last Ordered Date First Orde red Date DISCHARGE PATIENT 1 06/06/2024 Telemetry Count Last Ordered Date First Orde red Date TELEMETRY MONITORING 1 06/06/2024 documented in this encounter Care Teams Baby Formula Mixer Relationship Specialty Start Date End Date Sona Saenz MD [address] [address] PCP - General Internal Medicine 01/09/24 documented as of this encounter
--- OUTSIDE RECORDS SUMMARY | 2024-11-07 07:05 | XMS_ITS | Encounter Summary ---
Author Organization [facility] Address [address] [place] [address] Care Team Providers Care Parking Lot Spotter Name Role Phone Qian Mathur MD Primary Care Provider [phone] Reason for Referral * Consult & Treatment (Routine) - Closed Specialty Diagnoses / Procedures Referred By Contac t Referred To Contact Cardiology Diagnoses Paroxysmal atrial fibrillation (CMD) Palpitations Procedures Event/Mobile Cardiac Wreath Machine Operator CARDIAC EVENT MONITOR Cm Melton MD [address] [address] Referral ID Status Reason Start Date Expiration Date Visits Re quested Visits Authorized [id number] Closed 03/20/2023 09/14/2024 1 1 Reason for Visit * Consult & Treatment (Routine) - Closed Specialty Diagnoses / Procedures Referred By Contac t Referred To Contact Cardiology Diagnoses Paroxysmal atrial fibrillation (CMD) Palpitations Procedures Event/Mobile Cardiac Wreath Machine Operator CARDIAC EVENT MONITOR Cm Melton MD [address] [address] Referral ID Status Reason Start Date Expiration Date Visits Re quested Visits Authorized [id number] Closed 03/20/2023 09/14/2024 1 1 Encounter Details Date Type Department Care Team (Late st Contact Info) Description 04/11/2023 8:13 AM CDT - 04/11/2023 11:59 PM CDT Hospital Encounter [facility] [place] [address] Cm Melton MD [address] [address] Discharge Disposition: Home or Self Care Social [...] on file documented as of this encounter Medications at Time of Discharge Medication Sig Dispensed Refills Start Date End Date metoPROLOL succinate (Toprol XL) 25 MG 24 hr tablet Take 1 tablet by mouth daily. 90 tablet 3 03/20/2023 04/18/2023 documented as of this encounter Discharge Disposition Disposition Code Departure Means Destination Home or Self Care documented in this encounter Progress Notes * Donna Olivo - 04/11/2023 8:30 AM CDTSummary: Cardiac Event Monitor Written and verbal instruction given to patient. 866 toll free number for any customer service is highlighted. Patient understood purpose of monitoring service and contact information to the event monitoring company when there's an issue. documented in this encounter Plan of Treatment Upcoming Encounters Date Type Department Care Team (Late st Contact Info) Description 11/09/2024 12:15 PM TITLE I TEACHER Office Visit [facility] [address] [place] [phone] Cm Melotn MD [address] [id number] documented as of this encounter Procedures Procedure Name Priority Date/Time Associated Diagnosis Comments EVENT MONITOR (OR) MOBILE CARDIAC TELEMETRY (MCOT) MONITOR Routine 04/11/2023 8:17 AM CDT Paroxysmal atrial fibrillation (CMD) Palpitations documented in this encounter Results * CARDIAC EVENT MONITOR - NO CHARGE [...] Arrhythmia: Runs of PAF, <0.1% burden PAC Austin: <1% PVC Austin: 1% Impression: 1) The primary rhythm is sinus rhythm 2) Occasional ectopy, brief runs of PAF, <0.1% burden 3) Symptoms: No symptoms correlating to arrhythmia Aftab Frey D.O., F.A.C.C. [facility] Procedure Note Shante Aftab Nava DO - 05/13/2023 Images from the original [...] Arrhythmia: Runs of PAF, <0.1% burden PAC Austin: <1% PVC [place]: 1% Impression: 1) The primary rhythm is sinus rhythm 2) Occasional ectopy, brief runs of PAF, <0.1% burden 3) Symptoms: No symptoms correlating to arrhythmia Aftab Frey D.O., F.A.C.C. [facility] Cm Melton MD CV CARD SERVICES documented in this encounter Visit Diagnoses Diagnosis Paroxysmal atrial fibrillation (CMD) Atrial fibrillation Palpitations Palpitations- Primary Paroxysmal atrial fibrillation (CMD) Atrial fibrillation S/P ablation of atrial fibrillation Other postprocedural status PVCs (premature ventricular contractions) Other premature beats custodial current use of antiarrhythmic drug custodial current use of anticoagulant Encounter for long-term (current) use of anticoagulants STAR (obstructive sleep apnea) Obstructive sleep apnea (adult) (pediatric) documented in this encounter Care Teams Parking Lot Spotter Relationship Specialty Start Date End Date Qian Mathur MD [address] [address] PCP - General Internal Medicine 12/09/22 01/08/24 documented as of this encounter
--- OUTSIDE RECORDS SUMMARY | 2024-11-07 07:05 | XMS_ITS | Encounter Summary ---
Author Organization [facility] Address [address] [place] [address] Care Team Providers Care Home Designer Name Role Phone Unavailable Primary Care Provider Unavailabl e Encounter Details Date Type Department Care Team (Late st Contact Info) Description 12/18/2016 12:36 AM BUTCHER SUPERVISOR Hospital [facility] Marissa Benoit MD [address] [facility] [place] [address], [address] [place], [place] [phone] Discharge Disposition: Home or Self Care Social [...] or Self Care documented in this encounter Plan of Treatment Upcoming Encounters Date Type Department Care Team (Late st Contact Info) Description 11/09/2024 12:15 PM BUTCHER SUPERVISOR Office Visit [facility] [address] [place] [phone] Cm Melton MD [address] [address] documented as of this encounter Procedures Procedure Name Priority Date/Time Associated Diagnosis Comments XR HISTORICAL PROCEDURE Routine 12/18/2016 9:31 AM BUTCHER SUPERVISOR documented in this encounter Results * XR HISTORICAL PROCEDURE (12/18/2016 9:31 AM BUTCHER SUPERVISOR) Anatomical Region Laterality Modality N/A Radiographic Sandie ging 12/18/2016 9:31 AM BUTCHER SUPERVISOR 12/18/2016 9:31 AM BUTCHER SUPERVISOR Impressions 12/18/2016 9:31 AM BUTCHER SUPERVISOR Osteopenia. ??Since the previous study there has been a statistically significant 3.8% decrease in bone mineral density of the lumbar spine and 3.5% decrease in bone mineral density of the hip Classification of patient's bone density based on current World Health Organization criteria: *Normal: A value for bone mineral density (BMD) within 1.0 standard deviation (SD) of the young adult reference mean. *Osteopenia (low bone mass): BMD between 1.0 SD to 2.5 SD below the young adult mean. *Osteoporosis: BMD greater than or equal to 2.5 SD below young adult mean. *Severe osteoporosis (established): BMD greater than 2.5 SD below adult mean in the presence of one or more fragility fractures. ??F I N A L ?? Transcribed By: SANDRA 12/18/16 10:35 am Dictated By: ?DEVI MAGALLANES Electronically Reviewed and Approved By: ? DEVI MAGALLANES ??12/18/16 10:36 am Narrative 12/18/2016 9:31 AM BUTCHER SUPERVISOR EXAM: XR DEXA SCAN AXIAL CLINICAL INDICATION: Follow-up examination osteopenia postmenopausal woman COMPARISON: 11/15/2014 FINDINGS: LUMBAR SPINE ??L1-L4 Bone mineral density: ??.832 T-SCORE: -2.0 Percent young adult: 79 Z-SCORE: -.7 % Age matched: 89 LEFT HIP Bone mineral density total: .870 T-SCORE: -.6 % Young adult: 92 Z-SCORE: .2 % Age matched: 89 FEMORAL NECK Bone mineral density: .699 T-SCORE: -1.4 %Young adult: 80 Z-SCORE: -.2 % Age matched: 89 Procedure Note Provider, Andi Fletcher Historical Conversion - 07/28/2019 EXAM: XR DEXA SCAN AXIAL CLINICAL INDICATION: Follow-up examination osteopenia postmenopausalwoman COMPARISON: 11/15/2014 FINDINGS: LUMBAR SPINE L1-L4 Bone mineral density: .832 T-SCORE: -2.0 Percent young adult: 79 Z-SCORE: -.7 % Age matched: 89 LEFT HIP Bone mineral density total: .870 T-SCORE: -.6 % Young adult: 89 Z-SCORE: .2 % Age matched: 89 FEMORAL NECK Bone mineral density: .699 T-SCORE: -1.4 %Young adult: 80 Z-SCORE: -.2 % Age matched: 89 IMPRESSION: Osteopenia. Since the previous study there has been astatistically significant 3.8% decrease in bone mineral density of thelumbar spine and 3.5% decrease in bone mineral density of the hip Classification of patient's bone density based on current World HealthOrganization criteria: *Normal: A value for bone mineral density (BMD) within 1.0 standarddeviation (SD) of the young adult reference mean. *Osteopenia (low bone mass): BMD between 1.0 SD to 2.5 SD below the youngadult mean. *Osteoporosis: BMD greater than or equal to 2.5 SD below young adultmean. *Severe osteoporosis (established): BMD greater than 2.5 SD below adultmean in the presence of one or more fragility fractures. F I N A L Transcribed By: SANDRA 12/18/16 10:35 am Dictated By: DEVI MAGALLANES Electronically Reviewed and Approved By: DEVI MAGALLANES 12/18/1709:36 am [employer] Historical Conversion Provid er IMG XR PROCEDURES documented in this encounter Visit Diagnoses Not on filedocumented in this encounter
--- OUTSIDE RECORDS SUMMARY | 2024-11-07 07:05 | XMS_ITS | Encounter Summary ---
Author Organization [facility] Address [address] [place] [address] Care Team Providers Care Corporate Administrator Name Role Phone Unavailable Primary Care Provider Unavailabl e Encounter Details Date Type Department Care Team (Late st Contact Info) Description 12/18/2016 Orders Only [facility] Outreach Laboratory Marissa Herrera MD [address] [facility] [place] [address], [address] [place], [place] [address] Social History Tobacco Use Types Packs/Day Years [...] st Contact Info) Description 11/09/2024 12:15 PM DIAGNOSTIC RADIOLOGIST Office Visit [facility] [place] [phone] [place] [phone] Cm Melton MD [address] [address] documented as of this encounter Procedures Procedure Name Priority Date/Time Associated Diagnosis Comments MAMMO [facility] PROCEDURE Routine 12/18/2016 9:29 AM DIAGNOSTIC RADIOLOGIST documented in this encounter Results * MA [facility] PROCEDURE (12/18/2016 9:29 AM DIAGNOSTIC RADIOLOGIST) Anatomical Region Laterality Modality Breast Mammography 12/18/2016 9:29 AM DIAGNOSTIC RADIOLOGIST Impressions 12/18/2016 1:24 PM DIAGNOSTIC RADIOLOGIST BENIGN There is no mammographic evidence of malignancy. A 1 year screening mammogram is recommended. MAMMOGRAPHY BI-RADS: 2 BENIGN Melissa vines/sadi:12/18/2016 12:59:33 Hog Stomach Preparer: Adrienne Penn RT(R), [facility] letter sent: Normal Single Exam ??FINAL ?? Dictated By: ? MELISSA MCALLISTER MD Electronically Reviewed and Approved By: ?MELISSA MCALLISTER MD Narrative 12/18/2016 1:24 PM DIAGNOSTIC RADIOLOGIST #[id number] - MA FFDM SCREEN ANITA W YASMIN W CAD BILATERAL DIGITAL SCREENING MAMMOGRAM 3D/2D WITH CAD WITH MEDIOLATERAL OBLIQUE CRANIOCAUDAL: 12/18/2016 CLINICAL HISTORY:Routine Screening. COMPARISON: Comparison is made to exams dated: ??11/17/2015 mammogram, 11/15/2014 mammogram, 10/25/2013 mammogram, 10/21/2012 mammogram, 10/01/2011 mammogram, and 09/21/2010 mammogram - [facility]. FINDINGS: There are scattered fibroglandular elements in both breasts. No significant masses, calcifications, or other findings are seen in either breast. Current study was also evaluated with a Computer Aided Detection (CAD) system. There has been no significant interval change. Digital Breast Tomosynthesis (DBT) images were obtained and used to assist in the interpretation of this examination. Procedure Note Melissa Mantilla MD - 12/29/2018 #[id number] - MA FFDM SCREEN ANITA W YASMIN W CAD BILATERAL DIGITAL SCREENING MAMMOGRAM 3D/2D WITH CAD WITH MEDIOLATERALOBLIQUE CRANIOCAUDAL: 12/18/2016 CLINICAL HISTORY:Routine Screening. COMPARISON: Comparison is made to exams dated: 11/17/2015 mammogram, 11/15/2014mammogram, 10/25/2013 mammogram, 10/21/2012 mammogram, 10/01/2011 mammogram, and 09/21/2010mammogram - [facility]. FINDINGS: There are scattered fibroglandular elements in both breasts. No significant masses, calcifications, or other findings are seen ineither breast. Current study was also evaluated with a Computer Aided Detection (CAD)system. There has been no significant interval change. Digital Breast Tomosynthesis (DBT) images were obtained and used to assistin the interpretation of this examination. IMPRESSION: BENIGN There is no mammographic evidence of malignancy. A 1 year screeningmammogram is recommended. MAMMOGRAPHY BI-RADS: 2 BENIGN Melsisa vines/sadi:12/18/2016 12:59:33 Hog Stomach Preparer: Adrienne Penn RT(R), [facility] letter sent: Normal Single Exam FINAL Dictated By: MELISSA MCALLISTER MD Electronically Reviewed and Approved By: MELISSA MCALLISTER MD Marissa Herrera MD IMG BI PROCEDURES documented in this encounter Visit Diagnoses Not on filedocumented in this encounter
--- OUTSIDE RECORDS SUMMARY | 2024-11-07 07:05 | XMS_ITS | Encounter Summary ---
Author Organization [facility] Address [address] [place] [address] Care Team Providers Care Core Machine Operator Name Role Phone Jeison Orozco MD Primary Care Provider [phone] Encounter Details Date Type Department Care Team (Latest Contact Info) Description 04/21/2020 10:49 AM CDT - 04/21/2020 11:59 PM CDT Hospital Encounter [facility] BREAST [facility] IMAGING MAMMOGRAPHY [address] [place] [address] Marissa Herrera MD [address] [facility] [place] [address], [address] [place] [address] Discharge Disposition: Home or Self [...] st Contact Info) Description 11/09/2024 12:15 PM DIAL MAKER Office Visit [facility] [place] [address] [place] [address] Cm Melton MD [address] [address] [phone] (work) documented as of this encounter Procedures Procedure Name Priority Date/Time Associated Diagnosis Comments MAMMO SCREENING BILATERAL W YASMIN Routine 04/21/2020 11:07 AM CDT Encounter for screening mammogram for breast cancer documented in this encounter Results * MAMMO SCREENING BILATERAL W YASMIN (04/21/2020 11:07 AM CDT) Anatomical Region Laterality Modality Breast Bilateral Mammography 04/21/2020 11:0 7 AM CDT Impressions 04/21/2020 5:07 PM CDT MAMMOGRAPHY ??BENIGN There is no mammographic evidence of malignancy. A 1 year screening mammogram is recommended. ?? MAMMOGRAPHY BI-RADS: 2 BENIGN Electronically Signed by: Yohana Ann D.O. ? sf/penrad:04/21/2020 17:07:41 ?? Director Of Direct Marketing: Li ??RT Dmitri(Damien)(Selena), [facility] letter sent: Normal Single Exam Narrative 04/21/2020 5:07 PM CDT #[id number] - MAMMO SCREENING BILATERAL W YASMIN BILATERAL DIGITAL SCREENING MAMMOGRAM 3D/2D WITH CAD WITH MEDIOLATERAL OBLIQUE CRANIOCAUDAL: 04/21/2020 CLINICAL HISTORY:Routine annual screening mammogram - tomosynthesis. ?? COMPARISON: Comparison is made to exams dated: ??12/18/2016 mammogram, 11/17/2015 mammogram, 11/15/2014 mammogram, 10/25/2013 mammogram, 10/21/2012 mammogram, and 10/01/2011 mammogram - [facility]. ?? FINDINGS: There are scattered fibroglandular elements in both breasts. ?? No significant masses, calcifications, or other findings are seen in either breast. ?? Current study was also evaluated with a Computer Aided Detection (CAD) system. Digital Breast Tomosynthesis (DBT) images were obtained and used to assist in the interpretation of this examination. ?? There has been no significant interval change. Procedure Note Yohana Ann, DO - 04/21/2020 #[id number] - MAMMO SCREENING BILATERAL W YASMIN BILATERAL DIGITAL SCREENING MAMMOGRAM 3D/2D WITH CAD WITH MEDIOLATERALOBLIQUE CRANIOCAUDAL: 04/21/2020 CLINICAL HISTORY:Routine annual screening mammogram - tomosynthesis. COMPARISON: Comparison is made to exams dated: 12/18/2016 mammogram, 11/17/2015mammogram, 11/15/2014 mammogram, 10/25/2013 mammogram, 10/21/2012mammogram, and 10/01/2011 mammogram - [facility]. FINDINGS: There are scattered fibroglandular elements [...] MAMMOGRAPHY BI-RADS: 2 BENIGN Electronically Signed by: Yohana barajas/penrad:04/21/2020 17:07:41 Director Of Direct Marketing: Li Rizvi RT(R)(M), [facility] letter sent: Normal Single Exam Marissa Herrera MD IMG BI PROCEDURES documented in this encounter Visit Diagnoses Diagnosis Encounter for screening mammogram for breast cancer Palpitations- Primary Paroxysmal atrial fibrillation (CMD) Atrial fibrillation S/P ablation of atrial fibrillation Other postprocedural status PVCs (premature ventricular contractions) Other premature beats shelter current use of antiarrhythmic drug shelter current use of anticoagulant Encounter for long-term (current) use of anticoagulants STAR (obstructive sleep apnea) Obstructive sleep apnea (adult) (pediatric) documented in this encounter Care Teams Core Machine Operator Relationship Specialty Start Date End Date Jeison Orozco MD PCP - General 11/10/19 12/08/22 documented as of this encounter
--- OUTSIDE RECORDS SUMMARY | 2024-11-07 07:05 | XMS_ITS | Encounter Summary ---
Author Organization [facility] Address [address] [place] [address] Care Team Providers Care Fundraising Officer Name Role Phone Qian Mathur MD Primary Care Provider [phone] Encounter Details Date Type Department Care Team ([facility] st Contact Info) Description 05/22/2023 Telephone [facility] [address] [place] [address] Valerie Magdaleno RN Social History Tobacco Use Types Packs/Day [...] on file documented as of this encounter Miscellaneous Notes * Telephone Encounter - Danna Bean RN - 05/22/2023 12:33 PM CDT Pt called and LM advising of results and to CPM Advised to call back if she has questions. * Telephone Encounter - Danna Bean RN - 05/22/2023 12:33 PM CDT ----- Message from Cm Melton MD sent at 05/20/2023 3:49 PM CDT ----- Ca score is very low (4). CPM No change in management at this time documented in this encounter Plan of Treatment Upcoming Encounters Date Type Department Care Team (Late st Contact Info) Description 11/09/2024 12:15 PM PAYROLL AND BENEFITS MANAGER Office Visit [facility] [place] [address] [place] [address] [facility] [address] [place] [address] Cm Melton MD [address] [address] documented as of this encounter Visit Diagnoses Not on filedocumented in this encounter Care Teams Fundraising Officer Relationship Specialty Start Date End Date Qian Mathur MD [address] [facility] [address] [place] [address] PCP - General Internal Medicine 12/09/22 01/08/24 documented as of this encounter
--- OUTSIDE RECORDS SUMMARY | 2024-11-07 07:05 | XMS_ITS | Encounter Summary ---
Author Organization [facility] Address [address] [place] [address] Care Team Providers Care Farm Assistant Name Role Phone Unavailable Primary Care Provider Unavailabl e Encounter Details Date Type Department Care Team (Late st Contact Info) Description 11/15/2014 12:39 AM PROFESSIONAL NURSING ASSISTANT Hospital [facility] Thang Hernandez MD [facility] [place] [address] Discharge Disposition: Home or Self [...] st Contact Info) Description 11/09/2024 12:15 PM PROFESSIONAL NURSING ASSISTANT Office Visit [facility] [address] [place] [phone] Cm Melton MD [address] [address] documented as of this encounter Procedures Procedure Name Priority Date/Time Associated Diagnosis Comments XR HISTORICAL PROCEDURE Routine 11/15/2014 9:52 AM PROFESSIONAL NURSING ASSISTANT MAMMO HISTORICAL PROCEDURE Routine 11/15/2014 9:39 AM PROFESSIONAL NURSING ASSISTANT documented in this encounter Results * XR HISTORICAL PROCEDURE (11/15/2014 9:52 AM PROFESSIONAL NURSING ASSISTANT) Anatomical Region Laterality Modality N/A Radiographic Sandie ging 11/15/2014 9:52 AM PROFESSIONAL NURSING ASSISTANT 11/15/2014 9:52 AM PROFESSIONAL NURSING ASSISTANT Impressions 11/15/2014 9:52 AM PROFESSIONAL NURSING ASSISTANT Osteopenia. ??Since the previous examination there has been a statistically significant 5% decrease in bone mineral density of the lumbar spine and 4.5% decrease in bone mineral density of the [...] N A L ?? Transcribed By: SANDRA 11/15/14 10:00 am Dictated By: ?DEVI MAGALLANES Electronically Reviewed and Approved By: ? DEVI MAGALLANES ??11/15/14 10:01 am Narrative 11/15/2014 9:52 AM PROFESSIONAL NURSING ASSISTANT EXAM: XR DEXA SCAN AXIAL CLINICAL INDICATION: Follow-up examination osteopenia postmenopausal woman COMPARISON: 10/01/2011 FINDINGS: LUMBAR SPINE ??L1-L4 Bone mineral density: ??.865 T-SCORE: -1.7 Percent young adult: 83 Z-SCORE: -.5 % Age matched: 89 LEFT HIP Bone mineral density total: .901 T-SCORE: -.3 % Young adult: 96 Z-SCORE: .4 % Age matched: 89 FEMORAL NECK Bone mineral density: .677 T-SCORE: -1.5 %Young adult: 80 Z-SCORE: -.5 % Age matched: 89 Procedure Note Provider, Andi Fletcher Historical Conversion - 07/29/2019 EXAM: XR DEXA SCAN AXIAL CLINICAL INDICATION: Follow-up examination osteopenia postmenopausalwoman COMPARISON: 10/01/2011 FINDINGS: LUMBAR SPINE L1-L4 Bone mineral density: .865 T-SCORE: -1.7 Percent young adult: 83 Z-SCORE: -.5 % Age matched: 89 LEFT HIP Bone mineral density total: .901 T-SCORE: -.3 % Young adult: 96 Z-SCORE: .4 % Age matched: 89 FEMORAL NECK Bone mineral density: .677 T-SCORE: -1.5 %Young adult: 80 Z-SCORE: -.5 % Age matched: 89 IMPRESSION: Osteopenia. Since the previous examination there has been astatistically significant 5% decrease in bone mineral density of thelumbar spine and 4.5% decrease in bone mineral density of the [...] I N A L Transcribed By: SANDRA 11/15/14 10:00 am Dictated By: DEVI MAGALLANES Electronically Reviewed and Approved By: DEVI MAGALLANES 11/15/1509:01 am [employer] Historical Conversion Provid er IMG XR PROCEDURES * MA HISTORICAL PROCEDURE (11/15/2014 9:39 AM PROFESSIONAL NURSING ASSISTANT) Anatomical Region Laterality Modality Breast Mammography 11/15/2014 9:39 AM PROFESSIONAL NURSING ASSISTANT 11/15/2014 9:39 AM PROFESSIONAL NURSING ASSISTANT Impressions 11/15/2014 9:39 AM PROFESSIONAL NURSING ASSISTANT BENIGN There is no mammographic evidence of malignancy. A 1 year screening mammogram is recommended. MAMMOGRAPHY BI-RADS: 2 BENIGN Yohana Ann D.O. sf/penrad:11/15/2014 12:50:00 Weigher Operator: Arely Dawn RT (R )(M), [facility] letter sent: Normal Single Exam [id number] ?FINAL ?? Dictated By: ? YOHANA ESPITIA Electronically Reviewed and Approved By: ?YOHANA ESPITIA Narrative 11/15/2014 9:39 AM PROFESSIONAL NURSING ASSISTANT #[id number] - MA FFDM SCREEN W CAD ANITA BILATERAL DIGITAL SCREENING MAMMOGRAM WITH CAD: 11/15/2014 CLINICAL HISTORY:Routine screening. COMPARISON: Comparison is made to exams dated: ??10/25/2013 mammogram, 10/21/2012 mammogram, 10/01/2011 mammogram, 09/21/2010 mammogram - [facility], 09/18/2009 mammogram - [facility], and 07/18/2008 mammogram - [facility]. FINDINGS: There are scattered fibroglandular elements in both breasts. No significant masses, calcifications, or other findings are seen in either breast. Current study was also evaluated with a Computer Aided Detection (CAD) system. There has been no significant interval change. Procedure Note Provider, Andi Fletcher Historical Conversion - 07/29/2019 #[id number] - MA FFDM SCREEN W CAD ANITA BILATERAL DIGITAL SCREENING MAMMOGRAM WITH CAD: 11/15/2014 CLINICAL HISTORY:Routine screening. COMPARISON: Comparison is made to exams dated: 10/25/2013 mammogram, 10/21/2012mammogram, 10/01/2011 mammogram, 09/21/2010 mammogram - [facility], [facility], and 07/18/2008 mammogram - [facility]. FINDINGS: There are scattered fibroglandular elements in both breasts. No significant masses, calcifications, or other findings are seen ineither breast. Current study was also evaluated with a Computer Aided Detection (CAD)system. There has been no significant interval change. IMPRESSION: BENIGN There is no mammographic evidence of malignancy. A 1 year screeningmammogram is recommended. MAMMOGRAPHY BI-RADS: 2 BENIGN Yohana Ann D.O. sf/penrad:11/15/2014 12:50:00 Weigher Operator: Arely Dawn RT (R )(M), [facility] letter sent: Normal Single Exam [id number] FINAL Dictated By: YOHANA ESPITIA Electronically Reviewed and Approved By: YOHANA ESPITIA [employer] Historical Conversion Provid er IMG BI PROCEDURES documented in this encounter Visit Diagnoses Not on filedocumented in this encounter
--- OUTSIDE RECORDS SUMMARY | 2024-11-07 07:05 | XMS_ITS | Encounter Summary ---
Author Organization [facility] Address [address] [place] [address] Care Team Providers Care Sciences Dean Name Role Phone Qian Mathur MD Primary Care Provider [phone] Reason for Visit * Reason Comments Convey Results Encounter Details Date Type Department Care Team ([facility] Contact Info) Description 05/31/2023 [facility] [address], [address] [place] [address] Qiana Kincaid, RN Convey Results Social History Tobacco Use Types Packs/Day [...] encounter Miscellaneous Notes * Telephone Encounter - Qiana Kincaid RN - 05/31/2023 1:17 PM CDT Heartscan results and recommendations have been reviewed with patient by provider, cardiac long term care pharmacist will not call patient at this time. Results letter and risk factor educational material sent to patient. documented in this encounter Plan of Treatment Upcoming Encounters Date Type Department Care Team (Late Contact Info) Description 11/09/2024 12:15 PM HANDKERCHIEF PRESSER Office Visit [facility] [address] [place] [phone] Cm Melton MD [address] [address] documented as of this encounter Visit Diagnoses Not on filedocumented in this encounter Care Teams Sciences Dean Relationship Specialty Start Date End Date Qian Mathur MD [address] [facility] [address] [place] [address] PCP - General Internal Medicine 12/09/22 01/08/24 documented as of this encounter
--- OUTSIDE RECORDS SUMMARY | 2024-11-07 07:05 | XMS_ITS | Encounter Summary ---
Author Organization [facility] Address [address] [place] [address] Care Team Providers Care Bond Writer Name Role Phone Qian Mathur MD Primary Care Provider [phone] Reason for Visit * Consult & Treatment (Routine) - Closed Specialty Diagnoses / Procedures Referred By Contac t Referred To Contact Cardiology Diagnoses Paroxysmal atrial fibrillation (CMD) Procedures ECHOCARDIOGRAM STRESS TEST W/ W/O IMAGING AGENT Cm Melton MD [address] [address] Referral ID Status Reason Start Date Expiration Date Visits Re quested Visits Authorized [id number] Closed 03/20/2023 09/17/2024 1 1 Encounter Details Date Type Department Care Team (Late st Contact Info) Description 05/13/2023 3:30 PM CDT Ancillary Procedure [facility] [address] [place] [phone] Cm Melton MD [address] [address] Social History Tobacco Use Types [...] st Contact Info) Description 11/09/2024 12:15 PM INFECTION CONTROL SPECIALIST Office Visit [facility] [address] [place] [phone] Cm Melton MD [address] [address] documented as of this encounter Procedures Procedure Name Priority Date/Time Associated Diagnosis Comments ECHOCARDIOGRAM STRESS TEST W/CONTINUOUS EKG Routine 05/13/2023 4:39 PM CDT Paroxysmal atrial fibrillation (CMD) documented in this encounter Results * ECHOCARDIOGRAM STRESS TEST W/CONTINUOUS EKG (05/13/2023 4:39 PM CDT) Predicted HR Max 156 BPM [facility] Impressions [facility] - 05/14/2023 8:50 AM CDT *[facility] [address] [place] [address] 2, [address] [place] [address] Stress Echocardiogram Patient: Tonya Costello ?Study Date/Time: ?May 13 2023 3:05PM ?FIN#: ? [id number] : ? 1960 ? Ht/Wt: ?167.6cm 68.5kg Age: ? 62 ? BSA/BMI: ?1.79m^2 24.4kg/m^2 Gender: ??F ?Baseline BP: ?130 / 78 Ordering Physician: ?? Cm Melton Referring Physician: ??Cm Melton Steven Primary Physician: ?Qian Mathur MD Performing Physician: Gerald Arriaga MD Diagnostic Physician: Gerald Arriaga MD Valet Runner: ?BELEN Calderon Stress Butcher Assistant: ?? Yane Chaves MA INDICATIONS: ?? Atrial [...] experienced dyspnea during ?? stress. STUDY DATA: ??[place] There is no prior study available for [...] peak heart rate and blood pressure was 32857og Hg/min. The patient experienced dyspnea during stress. [...] +---+ + + !Peak stress ?! ! !146!140/78 (99)! ! + + + +---+ + [...] Procedure Note Gerald Arriaga MD - 05/14/2023 *[facility]* [address] [place] [address], [address] [place] [address] Stress Echocardiogram Patient: Tonya Costello Study Date/Time: May 13 2023 3:05PM : 1960 Ht/Wt: 167.6cm 68.5kg Age: 62 BSA/BMI: 1.79m^2 24.4kg/m^2 Gender: F Baseline BP: 130 / 78 Ordering Physician: Cm Melton Referring Physician: Cm Melton Steven Primary Physician: Qian Mathur MD Performing Physician: Gerald Arriaga MD Diagnostic Physician: Gerald Arriaga MD Valet Runner: BELEN Calderon Stress Butcher Assistant: Yane Chaves MA INDICATIONS: Atrial fibrillation. STUDY [...] The patient experienced dyspneaduring stress. STUDY DATA: Ramiro Marin There is no prior study available forcomparison [...] the peakheart rate and blood pressure was 74442gr Hg/min. The patient experienceddyspnea during stress. Functional [...] 08:50 Cm Melton MD CV ECHO ORDERABLES [facility] documented in this encounter Visit Diagnoses Not on filedocumented in this encounter Care Teams Bond Writer Relationship Specialty Start Date End Date Qian Mathur MD [address] [facility] [address] [place] [address] PCP - General Internal Medicine 12/09/22 01/08/24 documented as of this encounter
--- OUTSIDE RECORDS SUMMARY | 2024-11-07 07:05 | XMS_ITS | Encounter Summary ---
Author Organization [facility] Address [address] [place] [address] Care Team Providers Care News Specialist Name Role Phone Unavailable Primary Care Provider Unavailabl e Encounter Details Date Type Department Care Team (Late st Contact Info) Description 11/07/2016 1:40 AM SOCIAL WORKER SCHOOL Hospital [facility] Gerald Camarena MD [address] [place], [place] [phone] Jeison Orozco MD [address] [facility] [address] [place], [place] [id number] Discharge Disposition: Home or Self Care Social [...] st Contact Info) Description 11/09/2024 12:15 PM SOCIAL WORKER SCHOOL Office Visit [facility] [address] [place] [address] Cm Melton MD [address] [address] documented as of this encounter Procedures Procedure Name Priority Date/Time Associated Diagnosis Comments XR HISTORICAL PROCEDURE Routine 11/07/19 17 2:34 AM SOCIAL WORKER SCHOOL ELECTROCARDIOGRAM 12-LEAD Routine 2016 2:23 AM [employer]IAL WORKER [employer]OL COMPREHENSIVE METABOLIC PANEL Routine 11/07/2016 2:15 AM [employer]IAL WORKER [employer]OL TROPONIN I ULTRA SENSITIVE Routine 11/07/2016 2:15 AM [employer]OL CBC & AUTO DIFFERENTIAL Routine 11/07/19 17 2:15 AM SOCIAL WORKER [employer]OL MAGNESIUM LEVEL Routine 11/07/2016 2:15 AM SOCIAL WORKER S[employer]OL ELECTROCARDIOGRAM 12-LEAD Routine 2016 12:00 AM SOCIAL WORKER SCHOOL documented in this encounter Results * XR HISTORICAL PROCEDURE (11/07/2016 2:34 AM SOCIAL WORKER [employer]CHOOL) Anatomical Region Laterality Modality N/A Radiographic Sandie ging 11/07/2016 2:34 AM SOCIAL WORKER SCHOOL 11/07/2016 2:34 AM SOCIAL WORKER SCHOOL Impressions 11/07/2016 2:34 AM SOCIAL WORKER SCHOOL Portable upright AP view is submitted. ??Cardiac silhouette size is within normal limits. ??Overlapping monitoring wires are on the chest. ??Mild pleural- parenchymal scarring is seen at the lung apices. ??No significant radiographic change. ??F I N A L ?? Transcribed By: SANDRA 11/07/16 9:14 am Dictated By: ?CRUZ ESPITIA Electronically Reviewed and Approved By: ? CRUZ ESPITIA ??11/07/16 9:15 am Narrative 11/07/2016 2:34 AM SOCIAL WORKER SCHOOL EXAM: XR CHEST PORTABLE 1V COMPARISON: 02/26/2014 CLINICAL INDICATION: Palpitations. FINDINGS/ Procedure Note Provider, Andi Fletcher Historical Conversion - 07/28/2019 EXAM: XR CHEST PORTABLE 1V COMPARISON: 02/26/2014 CLINICAL INDICATION: Palpitations. FINDINGS/IMPRESSION: Portable upright AP view is submitted. Cardiacsilhouette size is within normal limits. Overlapping monitoring wires areon the chest. Mild pleural-parenchymal scarring is seen at the lungapices. No significant radiographic change. F I N A L Transcribed By: TP 11/07/16 9:14 am Dictated By: CRUZ ESPITIA Electronically Reviewed and Approved By: CRUZ ESPITIA11/07/16 9:15 am Gerald Clement MD IMG XR PROCEDURES * Electrocardiogram 12-Lead (11/07/2016 2:23 AM [employer]) Narrative HISTORICAL DATA MIGRATION - 11/07/2016 2:23 AM SOCIAL WORKER [employer]OL 71 Ventricular Rate BPM 71 Atrial Rate BPM 164 P-R Interval ms 88 QRS Duration ms 408 Q-T Interval ms 443 QTC Calculation(Bezet) ms 72 P [place] degrees 42 R [place] degrees 66 T [place] degrees Normal sinus rhythm Nonspecific ST abnormality Abnormal ECG When compared with ECG of 28-FEB-2014 10:26, No significant change was found Confirmed by BILL THOMPSNO M.D. ([id number]) on 11/07/2016 9:26:27 AM Procedure Note Provider, Andi Fletcher Historical Conversion - 07/28/2019 71 Ventricular Rate BPM 71 Atrial Rate BPM 164 P-R Interval ms 88 QRS Duration ms 408 Q-T Interval ms 443 QTC Calculation(Bezet) ms 72 P [place] degrees 42 R [place] degrees 66 T [place] degrees Normal sinus rhythm Nonspecific ST abnormality Abnormal ECG When compared with ECG of 28-FEB-2014 10:26, No significant change was found Confirmed by BILL THOMPSON M.D. ([id number]) on 11/07/2016 9:26:27 AM Andi Fletcher Historical Conversion Provid er ECG ORDERABLES HISTORICAL DATA MIGRATION * Troponin I Ultra Sensitive (11/07/2016 2:15 AM [employer] WORK[employer]OL) TROPONIN I <0.02 <0.05 ng/mL HISTORICAL DATA MIGRATION Comment: [place] [address], [address] 11/07/2016 2:15 AM SOCIAL WORKER [employer]CHOOL 11/07/2016 2:15 AM [employer] WORK[employer] Miguel Carter MD LAB BLOOD ORDERABLES HISTORICAL DATA MIGRATION * (ABNORMAL) CBC & Auto Differential (11/07/2016 2:15 AM [employer]) WBC 5.0 4.2 - 11.0 THOUSAND /mcL HISTORICAL DATA MIGRATION Comment: [address], [address] RBC 4.49 4.00 - 5.20 MILLION/ mcL HISTORICAL DATA MIGRATION Comment: [address], [address] HGB 13.8 12.0 - 15.5 gm/dL HISTORICAL DATA MIGRATION Comment: [address], [address] Hematocrit 41.1 36.0 - 46.5 % HISTORICAL DATA MIGRATION Comment: [address], [address] MCV 91.5 78.0 - 100.0 fL HISTORICAL DATA MIGRATION Comment: [address], [address] MCH 30.7 26.0 - 34.0 pg HISTORICAL DATA MIGRATION Comment: [address], [address] MCHC 33.6 32.0 - 36.5 gm/dL HISTORICAL DATA MIGRATION Comment: [address], [address] RDW-CV 12.7 11.0 - 15.0 % HISTORICAL DATA MIGRATION Comment: [address], [address] PLT 224 140 - 450 THOUSAND /mcL HISTORICAL DATA MIGRATION Comment: [address], [address] Analyzer ANC NOT APPLICABLE HI STORICAL DATA MIGRATION Comment: [address], [address] DIFF TYPE AUTOMATED DIFFERENTIAL HISTORICAL DATA MIGRATION Comment: [address], [address] SEG NOT APPLICABLE HISTO RICAL DATA MIGRATION Comment: [place] [facility] [address], [address] Percent NRBC NOT APPLICABLE HI STORICAL DATA MIGRATION Comment: [place] [facility] [address], [address] Neutrophil 70 % HISTORICA L DATA MIGRATION Comment: [place] [address], [address] LYMPH 18 % HISTORICAL DATA MIGRATION Comment: [place] [address], [address] MONO 11 % HISTORICAL DATA MIGRATION Comment: [place] [address], [address] EOSIN 1 % HISTORICAL DATA MIGRATION Comment: [place] [address], [address] BASO 0 % HISTORICAL DATA MIGRATION Comment: [place] [address], [address] Absolute Neutrophil 3.5 1.8 - 7.7 THOUSAND /mcL HISTORICAL DATA MIGRATION Comment: [place] [address], [address] Absolute Lymph 0.9(L) 1.0 - 4.0 THOUSAND /mcL HISTORICAL DATA MIGRATION Comment: [place] [address], [address] Absolute [place] 0.6 0.3 - 0.9 THOUSAND /mcL HISTORICAL DATA MIGRATION Comment: [place] [address], [address] Absolute Eos 0.1 0.1 - 0.5 THOUSAND /mcL HISTORICAL DATA MIGRATION Comment: [place] [address], [address] Absolute Baso 0.0 0.0 - 0.3 THOUSAND /mcL HISTORICAL DATA MIGRATION Comment: [place] [address], [address] 11/07/2016 2:15 AM [employer] 11/07/2016 2:15 AM [employer] Miguel Carter MD LAB BLOOD ORDERABLES HISTORICAL DATA MIGRATION * Magnesium Level (11/07/2016 2:15 AM [employer]) MAGNESIUM 1.9 1.7 - 2.4 mg/dL HISTORICAL DATA MIGRATION Comment: [address], [address] 11/07/2016 2:15 AM [employer] 11/07/2016 2:15 AM [employer] Narrative HISTORICAL DATA MIGRATION - 11/07/2016 2:15 AM [employer] FOR ED USE ONLY Gerald Clement MD LAB BLOOD ORDERABLES Performing Organization Address [facility] Co de Phone Number HISTORICAL DATA MIGRATION * (ABNORMAL) Comprehensive Metabolic Panel (11/07/2016 2:15 AM [employer]) Pathologist [facility] Sodium 141 135 - 145 mmol/L HISTORICAL DATA MIGRATION Comment: [address], [address] Potassium 3.6 3.4 - 5.1 mmol/L HISTORICAL DATA MIGRATION Comment: Slight to moderate hemolysis, result may be falsely increased. [address], [address] Chloride 102 98 - 107 mmol/L HISTORICAL DATA MIGRATION Comment: [address], [address] Carbon Dioxide 29 21 - 32 mmol/L HISTORICAL DATA MIGRATION Comment: [address], [address] Anion Gap 14 10 - 20 mmol/L HISTORICAL DATA MIGRATION Comment: [address], [address] Glucose 105(H) 65 - 99 mg/dL HISTORICAL DATA MIGRATION Comment: [address], [address] BUN 14 10 - 20 mg/dL HISTORICAL DATA MIGRATION Comment: [address], [address] Creatinine 0.62 0.51 - 0.95 mg/dL HISTORICAL DATA MIGRATION Comment: [place] [facility] [address], [address] GFR Estimate, >90 HISTORICAL DATA MIGRATION Comment: In patients with known chronic kidney disease, the stage of disease based on eGFR is interpreted as follows: eGFR results = or >90 mL/min/1.73m2 = Stage I normal kidney function. [place] [facility] [address], [address] GFR Estimate, Non >90 HISTORICAL DATA MIGRATION Comment: In patients with known chronic kidney disease, the stage of disease based on eGFR is interpreted as follows: eGFR results = or >90 mL/min/1.73m2 = Stage I normal kidney function. [place] [facility] [address], [address] BUN/Creatinine Ratio 23 7 - 25 HISTORICAL DATA MIGRATION Comment: [address], [address] PTH CALCIUM 8.7 8.4 - 10.2 mg/dL HISTORICAL DATA MIGRATION Comment: [address], [address] TOTAL BILIRUBIN 0.6 0.2 - 1.0 mg/dL HISTORICAL DATA MIGRATION Comment: [address], [address] AST/SGOT 26 <38 unit/L HISTORICA L DATA MIGRATION Comment: Slight to moderate hemolysis, result may be falsely increased. [address], [address] ALT/SGPT 25 <79 unit/L HISTORICA L DATA MIGRATION Comment: [place] [facility] [address], [address] ALK PHOSPHATASE 51 45 - 117 unit/L HISTORICAL DATA MIGRATION Comment: [address], [address] TOTAL PROTEIN 7.6 6.4 - 8.2 gm/dL HISTORICAL DATA MIGRATION Comment: [address], [address] Albumin 4.0 3.6 - 5.1 gm/dL HISTORICAL DATA MIGRATION Comment: [address], [address] GLOBULIN 3.6 2.0 - 4.0 gm/dL HISTORICAL DATA MIGRATION Comment: [place] [facility] [address] [place], [address] A/G Ratio, Serum 1.1 1.0 - 2.4 HIS TORICAL DATA MIGRATION Comment: [place] [facility] [address] [place], [address] 11/07/2016 2:15 AM [employer] 11/07/2016 2:15 AM [employer] Miguel Carter MD LAB BLOOD ORDERABLES HISTORICAL DATA MIGRATION * Electrocardiogram 12-Lead (11/07/2016 12:00 AM [employer]) Narrative HISTORICAL DATA MIGRATION - 11/07/2016 12:00 AM [employer] CHECK ONBASE FOR SCAN Procedure Note Provider, Andi Fletcher Historical Conversion - 07/28/2019 CHECK ONBASE FOR SCAN Andi Fletcher Historical Conversion Provid er ECG ORDERABLES HISTORICAL DATA MIGRATION documented in this encounter Visit Diagnoses Not on filedocumented in this encounter
--- OUTSIDE RECORDS SUMMARY | 2024-11-07 07:05 | XMS_ITS | Encounter Summary ---
Author Organization [facility] Address [address] [place] [address] Care Team Providers Care Preschool Teacher Aide Name Role Phone Qian Mathur MD Primary Care Provider [phone] Encounter Details Date Type Department Care Team ([facility] st Contact Info) Description 04/18/2023 Refill [facility] [address] [place] [address] Cm Melton MD [address] [address] Social History Tobacco Use Types [...] on file documented as of this encounter Ordered Prescriptions Prescription Sig Dispensed Refills Start Date End Da te metoPROLOL succinate (Toprol XL) 25 MG 24 hr tablet Take 1 tablet by mouth daily. 90 tablet 3 04/18/2023 06/26/2023 documented in this encounter Miscellaneous Notes * Telephone Encounter - Paulina Bennett - 04/18/2023 9:22 AM CDT Need lorenza Patient saw Dr Melton 03/20 and was supposed to have order it. Have not started the metoprolol was pharmacy stated the prescription was not sent documented in this encounter Plan of Treatment Upcoming Encounters Date Type Department Care Team (Late st Contact Info) Description 11/09/2024 12:15 PM SENIOR DATASTAGE DEVELOPER Office Visit [facility] [place] [address] [facility] [address] [place] [phone] Cm Melton MD [address] [address] documented as of this encounter Visit Diagnoses Not on filedocumented in this encounter Discontinued Medications Medication Sig Discontinue Reason Start Date End Da te metoPROLOL succinate (Toprol XL) 25 MG 24 hr tablet Take 1 tablet by mouth daily. Reorder 03/20/2023 04/18/2023 documented as of this encounter Care Teams Preschool Teacher Aide Relationship Specialty Start Date End Date Qian Mathur MD [address] [facility] [address] [place] [address] PCP - General Internal Medicine 12/09/22 01/08/24 documented as of this encounter
--- OUTSIDE RECORDS SUMMARY | 2024-11-07 07:05 | XMS_ITS | Encounter Summary ---
Author Organization [facility] Address [address] [place] [address] Care Team Providers Care Early Morning Babysitter Name Role Phone Unavailable Primary Care Provider Unavailabl e Encounter Details Date Type Department Care Team (Late Contact Info) Description 09/14/2015 12:33 AM SIX SIGMA PROJECT MANAGER Hospital [facility] Titus Begum MD [address] [facility] [address] [place], [place] [address] Discharge Disposition: Home or Self Care Social [...] st Contact Info) Description 11/09/2024 12:15 PM SIX SIGMA PROJECT MANAGER Office Visit [facility] [place] [address] [place] [phone] Cm Melton MD [address] [address] documented as of this encounter Visit Diagnoses Not on filedocumented in this encounter
--- OUTSIDE RECORDS SUMMARY | 2024-11-07 07:05 | XMS_ITS | Encounter Summary ---
Author Organization [facility] Address [address] [place] [address] Care Team Providers Care Machine Programmer Name Role Phone Sona Saenz MD Primary Care Provider [phone] Reason for Referral * Consult & Treatment (Routine) - Closed Specialty Diagnoses / Procedures Referred By Contac t Referred To Contact Cardiology Diagnoses Paroxysmal atrial fibrillation (CMD) Procedures HOLTER MONITOR EXTENDED WEAR 3-7 DAYS / 8-14 DAYS Cm Melton MD [address] [address] Referral ID Status Reason Start Date Expiration Date Visits Re quested Visits Authorized [id number] Closed 06/08/2024 12/07/2025 1 1 Reason for Visit * Reason Comments Hospital F/U ED 06/05 for AFIB Encounter Details Date Type Department Care Team (Late st Contact Info) Description 06/08/2024 8:45 AM CDT Office Visit [facility] [address] [place] [phone] Cm Melton MD [address] [address] Paroxysmal atrial fibrillation (CMD) (Primary Dx); S/P ablation of atrial fibrillation; terminal system operator current use of antiarrhythmic drug; [facility] current use of anticoagulant; Palpitations; STAR (obstructive sleep apnea) Social History Tobacco Use Types Packs/Day Years Used Date Smoking Tobacco: Former Cigarettes Smokeless Tobacco: Never Alcohol Use Standard Drinks/Week Comments Yes 2 (1 standard drink = 0.6 oz pur e alcohol) Utilities Answer Date Recorded In the past 12 months has th e electric, gas, oil, or water company threatened to shut off services in your home? No 06/06/2024 PHQ-2 Answer Date Recorded Initial depression screening score: 0 06/08/2024 Social Connections Answer Date Recorded How often do you see or talk to people that you care about and feel close to? (For example: talking to friends on the phone, visiting friends or family, going to taoist or club meetings) 5 or more times [...] harm??? Never 06/05/2024 How often does anyone, inclu ding family and friends, scream or curse at [...] propafenone. She converted to sinus a couple hoursafter the propafenone. She has felt well since discharge with no recurrent palpitations or arrhythmia. She denies CP, angina, SOB, presyncope or syncope. She did not fill her eliquis script because of cost. EKG today shows sinus at 63, normal [...] sleep apnea) ??? Dyspnea on exertion ??? terminal system operator current use of antiarrhythmic drug ??? terminal system operator current use of anticoagulant IMPRESSION: Paroxysmal afib, [...] well clinically (no palpitations) and zio in Jun looks good then would switch praxada back to ecasa at that time BRENDA MELTON 6 months Kiran Melton MD 06/08/24 documented in this encounter Plan of Treatment Upcoming Encounters Date Type Department Care Team (Late st Contact Info) Description 11/09/2024 12:15 PM QUALITY ASSURANCE NURSE Office Visit [facility] [address] [place] [address] Cm Melton MD [facility] [address] [id number] documented as of this encounter Procedures Procedure Name Priority Date/Time Associated Diagnosis Comments ELECTROCARDIOGRAM 12-LEAD Routine 06/08/2024 7:49 AM CDT Paroxysmal atrial fibrillation (CMD) [...] MD CV CARD SERVICES Performing Organization Address City/State/[facility] Co de Phone Number APS MONITORS * Electrocardiogram 12-Lead (06/08/2024 7:49 AM CDT) Ventricular Rate EKG/Min (BPM) 63 MUSE Atrial Rate (BPM) 63 MUSE RI-Interval (MSEC) 188 MUSE QRS-Interval (MSEC) 82 MUSE QT-Interval (MSEC) 422 MUSE QTc 432 MUSE P [place]is[place] (Degrees) 58 MUSE R [place]is[place] (Degrees) 35 MUSE T [place] (Degrees) 33 MUSE REPORT TEXT Normal sinus rhythm Low voltage QRS Borderline ECG When compared with ECG of 06-JUN-2024 14:12, No significant change was found Confirmed by CM MELTON MD ([id number]) on 06/14/2024 1:43:11 PM MUSE 06/08/2024 7:49 AM CDT Cm Melton MD ECG ORDERABLES Performing Organization Address [facility] Co de Phone Number MUSE documented in this encounter Visit Diagnoses Diagnosis Paroxysmal atrial fibrillation (CMD)- Primary Atrial fibrillation S/P ablation of atrial fibrillation Other postprocedural status [facility] current use of antiarrhythmic drug terminal system operator current use of anticoagulant Encounter for long-term (current) use of anticoagulants Palpitations STAR (obstructive sleep apnea) Obstructive sleep apnea (adult) (pediatric) Paroxysmal atrial fibrillation (CMD) Atrial fibrillation Palpitations- Primary Paroxysmal atrial fibrillation (CMD) Atrial fibrillation S/P ablation of atrial fibrillation Other postprocedural status PVCs (premature ventricular contractions) Other premature beats terminal system operator current use of antiarrhythmic drug terminal system operator current use of anticoagulant Encounter for long-term (current) use of anticoagulants STAR (obstructive sleep apnea) Obstructive sleep apnea (adult) (pediatric) documented in this encounter Discontinued Medications Medication Sig Discontinue Reason Start Date End Da te apixaBAN (Eliquis) 5 MG Tab Take 1 tablet by mouth every 12 hours. Alternate Therapy 06/06/2024 06/08/2024 documented as of this encounter Care Teams Machine Programmer Relationship Specialty Start Date End Date Sona Saenz MD [address] [facility] [address] [address] PCP - General Internal Medicine 01/09/24 documented as of this encounter
--- OUTSIDE RECORDS SUMMARY | 2024-11-07 07:05 | XMS_ITS | Encounter Summary ---
Author Organization [facility] Address [address] [place] [address] Care Team Providers Care Unemployment Insurance Hearing Officer Name Role Phone Qian Mathur MD Primary Care Provider [phone] Encounter Details Date Type Department Care Team (Late st Contact Info) Description 03/14/2023 Telephone [facility] [place] [id number] [place] [address] Cm Melton MD [address] [address] Social History Tobacco Use Types [...] encounter Miscellaneous Notes * Telephone Encounter - Bhakti Sosa - 03/17/2023 3:10 PM CDT Spoke to pt, appt scheduled with Dr. Melton. Former pt of Dr. Rios. * Telephone Encounter - Mony Meyer - 03/14/2023 3:31 PM CDT Patient has had an ablation in the past and has been having palpitations (not at time of call), also has had Covid 4 times, would like to reestablish documented in this encounter Plan of Treatment Upcoming Encounters Date Type Department Care Team (Late st Contact Info) Description 11/09/2024 12:15 PM FRACTIONATION PLANT SUPERVISOR Office Visit [facility] [place] [address] [place] [address] [facility] [address] [place] [phone] Cm Melton MD [address] [address] documented as of this encounter Visit Diagnoses Not on filedocumented in this encounter Care Teams Unemployment Insurance Hearing Officer Relationship Specialty Start Date End Date Qian Mathur MD [address] [facility] [address] [place] [address] PCP - General Internal Medicine 12/09/22 01/08/24 documented as of this encounter
--- OUTSIDE RECORDS SUMMARY | 2024-11-07 07:05 | XMS_ITS | Encounter Summary ---
Author Organization [facility] Address [address] [place] [address] Care Team Providers Care Ep Tech Name Role Phone Unavailable Primary Care Provider Unavailabl e Encounter Details Date Type Department Care Team (Late st Contact Info) Description 11/17/2015 12:34 AM TYPE CASTING MACHINE OPERATOR Hospital [facility] Thang Hernandez MD [address] [place], [place] [phone] Discharge Disposition: Home or Self Care Social [...] st Contact Info) Description 11/09/2024 12:15 PM TYPE CASTING MACHINE OPERATOR Office Visit [facility] [address] [place] [phone] Cm Melton MD [address] [address] documented as of this encounter Procedures Procedure Name Priority Date/Time Associated Diagnosis Comments MAMMO HISTORICAL PROCEDURE Routine 11/17/2015 8:06 AM TYPE CASTING MACHINE OPERATOR documented in this encounter Results * MA HISTORICAL PROCEDURE (11/17/2015 8:06 AM TYPE CASTING MACHINE OPERATOR) Anatomical Region Laterality Modality Breast Mammography 11/17/2015 8:06 AM TYPE CASTING MACHINE OPERATOR 11/17/2015 8:06 AM TYPE CASTING MACHINE OPERATOR Impressions 11/17/2015 8:06 AM TYPE CASTING MACHINE OPERATOR BENIGN There is no mammographic evidence of malignancy. A 1 year screening mammogram is recommended. MAMMOGRAPHY BI-RADS: 2 BENIGN Devi gong/penrad:11/17/2015 08:57:19 Air Intercept Controller: Rosemary CUMMINGS (R )(Selena), [facility] letter sent: Normal Single Exam [id number] ?FINAL ?? Dictated By: ? DEVI MAGALLANES Electronically Reviewed and Approved By: ?DEVI MAGALLANES Narrative 11/17/2015 8:06 AM TYPE CASTING MACHINE OPERATOR #[id number] - MA FFDM SCREEN W CAD ANITA BILATERAL DIGITAL SCREENING MAMMOGRAM WITH CAD WITH MEDIOLATERAL OBLIQUE CRANIOCAUDAL: 11/17/2015 CLINICAL HISTORY:Routine screening. COMPARISON: Comparison is made to exams dated: ??11/15/2014 mammogram, 10/25/2013 mammogram, 10/21/2012 mammogram, 10/01/2011 mammogram, 09/21/2010 mammogram - [facility], and 09/18/2009 mammogram - [facility]. FINDINGS: There are scattered fibroglandular elements in both breasts. No significant masses, calcifications, or other findings are seen in either breast. Current study was also evaluated with a Computer Aided Detection (CAD) system. There has been no significant interval change. Procedure Note Provider, Andi Fletcher Historical Conversion - 07/27/2019 #[id number] - MA FFDM SCREEN W CAD ANITA BILATERAL DIGITAL SCREENING MAMMOGRAM WITH CAD WITH MEDIOLATERAL OBLIQUECRANIOCAUDAL: 11/17/2015 CLINICAL HISTORY:Routine screening. COMPARISON: Comparison is made to exams dated: 11/15/2014 mammogram, 10/25/2013mammogram, 10/21/2012 mammogram, 10/01/2011 mammogram, 09/21/2010 mammogram- [facility], and 09/18/2009 mammogram - [facility]. FINDINGS: There are scattered fibroglandular elements in both breasts. No significant masses, calcifications, or other findings are seen ineither breast. Current study was also evaluated with a Computer Aided Detection (CAD)system. There has been no significant interval change. IMPRESSION: BENIGN There is no mammographic evidence of malignancy. A 1 year screeningmammogram is recommended. MAMMOGRAPHY BI-RADS: 2 BENIGN Devi bhardwajk/penrad:11/17/2015 08:57:19 Air Intercept Controller: Rosemary CUMMINGS (Damien )(M), [facility] letter sent: Normal Single Exam [id number] FINAL Dictated By: DEVI MAGALLANES Electronically Reviewed and Approved By: DEVI MAGALLANES [employer] Historical Conversion Provid er IMG BI PROCEDURES documented in this encounter Visit Diagnoses Not on filedocumented in this encounter
--- OUTSIDE RECORDS SUMMARY | 2024-11-07 07:05 | XMS_ITS | Encounter Summary ---
Author Organization [facility] Address [address] [place] [address] Care Team Providers Care Quality Control Tech Name Role Phone Qian Mathur MD Primary Care Provider [phone] Reason for Visit * Reason Comments Follow-up Encounter Details Date Type Department Care Team ([facility] st Contact Info) Description 06/26/2023 9:15 AM CDT [facility] Visit [facility] [address] [place] [address] Cm Barbosa MD [address] [address] Paroxysmal atrial fibrillation (CMD) (Primary Dx); S/P ablation of atrial fibrillation; STAR (obstructive sleep apnea); Palpitations Social History Tobacco Use Types Packs/Day [...] Sign Reading Time Taken Comments Blood Pressure 121/78 06/26/2023 9:08 AM CDT Pulse 69 06/26/2023 9:08 AM CDT Temperature - - Respiratory Rate - - Oxygen Saturation - - Inhaled Oxygen Concentration - - Weight 70.8 kg (156 lb 3.1 oz) 06/26/2023 9:08 A M CDT Height - - Body Mass Index - - documented in this encounter Ordered Prescriptions Prescription Sig Dispensed Refills Start Date End Da te metoPROLOL succinate (Toprol XL) 25 MG 24 hr tablet Take 1 tablet by mouth daily. 90 tablet 3 06/26/2023 09/09/2024 documented in this encounter Progress Notes * Cm Barbosa MD - 06/26/2023 9:14 AM CDT Images from the original note were not included. Office Note Tonya Costello : 1960 PCP: Qian Mathur MD Reason for Visit: Chief Complaint Patient presents with ??? Follow-up History of Present Illness: Tonya Costello is a 62 year old woman with PMHx of afib s/p ablation in 2013. She is doing well since I last saw her. She notes occ brief palpitations lasting for seconds at a time. She is not having any afib. She had some testing performed since our last visit. She had a calcium scoring CT scan that had a score of 4. Stress echo showed normal EF and no ischemia. 30 day monitor showed sinus throughout with 1% PACs. She did not pharmacy picking tech her toprol prescription. She denies CP, angina, presyncope, syncope or SOB. Overall she has been feeling well. PMHx: No past medical history on file. [...] Outpatient Medications Medication Sig Dispense Refill ??? aspirin (ECOTRIN) 81 MG EC tablet Take 81 mg by mouth daily. ??? metoPROLOL succinate (Toprol XL) 25 MG 24 hr tablet Take 1 tablet by mouth daily. 90 tablet 3 No current facility-administered medications for this visit. Review of Systems: Review of Systems Constitutional: Negative for chills, fever, weight gain and weight loss. HENT: Negative for hearing loss. Eyes: Negative for double vision and visual disturbance. Patient denies significant visual changes Cardiovascular: Positive for palpitations. Negative for chest pain, claudication, dyspnea on exertion, near-syncope and syncope. Negative except for what's indicated in HPI Respiratory: Negative for cough, hemoptysis and shortness of breath. Hematologic/Lymphatic: Does not bruise/bleed easily. Skin: Negative for rash and suspicious lesions. Musculoskeletal: Negative for arthritis and falls. Gastrointestinal: Negative for hematochezia and melena. Genitourinary: Negative for hematuria. Neurological: Negative for light-headedness and loss of balance. No localized deficits Psychiatric/Behavioral: Negative for depression. Allergic/Immunologic: Negative for environmental allergies. No new food allergies All other systems were reviewed and were negative. Physical Exam: Visit Vitals BP 121/78 (BP Location: LUE - Left upper extremity, Patient Position: Sitting, Cuff Size: Regular) Pulse 69 Wt 70.8 kg (156 lb 3.1 oz) Gen: no acute distress Neuro: alert and oriented x 3 HEENT: symmetric Mouth: membranes moist Neck: no jvd CV: regular s1s2 no murmur or rub Pulm: clear GI: soft, non-tender, no rebound [...] LDL 105 Assessment/Plan: Tonya Costello is a 62 year old woman with PMHx of afib s/p ablation in 2013. She is doing well since I last saw her. She notes occ brief palpitations lasting for seconds at a time. She is not having any afib. She had some testing performed since our last visit. She had a calcium scoring CT scan that had a score of 4. Stress echo showed normal EF and no ischemia. 30 day monitor showed sinus throughout with 1% PACs. She did not pharmacy picking tech her toprol prescription. Diagnosis: Patient Active Problem List Diagnosis ??? Paroxysmal atrial fibrillation (CMD) ??? S/P ablation of atrial fibrillation ??? Palpitations ??? STAR (obstructive sleep apnea) ??? Dyspnea on exertion IMPRESSION: Paroxysmal afib Afib ablation 2013 ([facility]) Palpitations STAR PLAN: Event monitor 04/18 reviewed, sinus throughout, no sig PAF Stress echo 05/18 reviewed, normal EF and no ischemia Will reorder toprol XL 25 daily Continue ecasa BRENDA BARBOSA one year Kiran Barbosa MD 06/26/23 documented in this encounter Plan of Treatment Upcoming Encounters Date Type Department Care Team (Late st Contact Info) Description 11/09/2024 12:15 PM TECHNICAL SERVICE SPECIALIST Office Visit [facility] [place] [address] [place] [address] [facility] [address] [place] [address] Cm Barbosa MD [address] [address] documented as of this encounter Visit Diagnoses Diagnosis Paroxysmal atrial fibrillation (CMD)- Primary Atrial fibrillation S/P ablation of atrial fibrillation Other postprocedural status STAR (obstructive sleep apnea) Obstructive sleep apnea (adult) (pediatric) Palpitations Palpitations- Primary Paroxysmal atrial fibrillation (CMD) Atrial fibrillation S/P ablation of atrial fibrillation Other postprocedural status PVCs (premature ventricular contractions) Other premature beats [facility] current use of antiarrhythmic drug [facility] current use of anticoagulant Encounter for long-term (current) use of anticoagulants STAR (obstructive sleep apnea) Obstructive sleep apnea (adult) (pediatric) documented in this encounter Discontinued Medications Medication Sig Discontinue Reason Start Date End Da te metoPROLOL succinate (Toprol XL) 25 MG 24 hr tablet Take 1 tablet by mouth daily. Reorder 04/18/2023 06/26/2023 documented as of this encounter Historical Medications * This list may reflect changes made after this encounter. Medication Sig Dispensed Refills Start Date End Date aspirin (ECOTRIN) 81 MG EC tablet Take 81 mg by mouth daily. 06/06/2024 added in this encounter Care Teams Quality Control Tech Relationship Specialty Start Date End Date Qian Mathur MD [address] [place], [place] [phone] PCP - General Internal Medicine 12/09/22 01/08/24 documented as of this encounter
--- OUTSIDE RECORDS SUMMARY | 2024-11-07 07:05 | XMS_ITS | Encounter Summary ---
Author Organization [facility] Address [address] [place] [address] Care Team Providers Care Quality Process Auditor Name Role Phone Sona Saenz MD Primary Care Provider [phone] Reason for Visit * Reason Comments Cipher Outreach 3 Encounter Details Date Type Department Care Team ([facility] st Contact Info) Description 06/22/2024 Telephone [facility] [address] [place] [address] Provider, Population Health Support Cipher Outreach 3 Social History Tobacco Use Types Packs/Day Years [...] phone, visiting friends or family, going to mormon or club meetings) 5 or more times [...] st Contact Info) Description 11/09/2024 12:15 PM REED FIXER Office Visit [facility] [place] [address] [place] [address] [place] [address] Cm Melton MD [address] [address] documented as of this encounter Visit Diagnoses Not on filedocumented in this encounter Care Teams Quality Process Auditor Relationship Specialty Start Date End Date Sona Saenz MD [address] [place] [address] PCP - General Internal Medicine 01/09/24 documented as of this encounter
--- OUTSIDE RECORDS SUMMARY | 2024-11-07 07:05 | XMS_ITS | Encounter Summary ---
Author Organization [facility] Address [address] [place] [address] Care Team Providers Care [employer] Factory Worker Name Role Phone Unavailable Primary Care Provider Unavailabl e Encounter Details Date Type Department Care Team (Late st Contact Info) Description 11/07/2016 Diagnostic Trans [facility] CONVERSION ProviderAndi Historical Conversion NO KNOWN ADDRESS ON FILE Social History Tobacco Use Types Packs/Day Years Used Date Smoking Tobacco: Never Assessed Sex and Gender Information Value Date Recorded Sex Assigned at Not on file Gender Identity Not on file Sexual Orientation Not on file Job Start Date Occupation Industry Not on file Not on file Not on file documented as of this encounter Procedure Notes * ProviderAndi Historical Conversion - 11/07/2016 9:26 AM EXCAVATION LABORER Associated Order(s): ELECTROCARDIOGRAM 12-LEAD Ventricular Rate : 71 Atrial Rate : 71 P-R Interval : 164 QRS Duration : 88 Q-T Interval : 408 QTC Calculation(Bezet) : 443 P Tiona : 72 R Tiona : 42 T Tiona : 66 Diagnosis : Normal sinus rhythm~Nonspecific ST abnormality~Abnormal ECG~When compared with ECG of 28-FEB-2014 10:26,~No significant change was found~Confirmed by BILL THOMPSON M.D. ([id number]) on 11/07/2016 9:26:27 AM VATION LABORER documented in this encounter Plan of Treatment Upcoming Encounters Date Type Department Care Team (Late st Contact Info) Description 11/09/2024 12:15 PM EXCAVATION LABORER [facility] Visit [facility] [address] [place] [address] Cm Melton MD [address] [address] documented as of this encounter Procedures Procedure Name Priority Date/Time Associated Diagnosis Comments ELECTROCARDIOGRAM 12-LEAD 2016 9:26 AM EXCAVATION LABORER documented in this encounter Results * Electrocardiogram 12-Lead (11/07/2016 9:26 AM EXCAVATION LABORER) Narrative 11/07/2016 9:26 AM EXCAVATION LABORER Ordered by an unspecified provider. Procedure Note Provider, Andi Gage Historical Conversion - 11/07/2016 9:26 AM CST Ventricular Rate : 71 Atrial Rate : 71 P-R Interval : 164 QRS Duration : 88 Q-T Interval : 408 QTC Calculation(Bezet) : 443 P Tiona : 72 R Tiona : 42 T Tiona : 66 Diagnosis : Normal sinus rhythm~Nonspecific ST abnormality~AbnormalECG~When compared with ECG of 28-FEB-2014 10:26,~No significant change wasfound~Confirmed by BILL THOMPSON M.D. ([id number]) on 11/07/2016 9:26:[address] [facility] Historical Conversion Pro vider ECG ORDERABLES documented in this encounter Visit Diagnoses Not on filedocumented in this encounter
--- OUTSIDE RECORDS SUMMARY | 2024-11-07 07:05 | XMS_ITS | Encounter Summary ---
Author Organization [facility] Address [address] [place] [address] Care Team Providers Care Strike Out Machine Operator Name Role Phone Sona Saenz MD Primary Care Provider [phone] Reason for Visit * Reason Comments Cipher Outreach 2 Encounter Details Date Type Department Care Team ([facility] Contact Info) Description 06/15/2024 Telephone [facility] [address] [place] [address] Provider, Population Health Support Cipher Outreach 2 [...] phone, visiting friends or family, going to hinduism or club meetings) 5 or more times [...] st Contact Info) Description 11/09/2024 12:15 PM BENCH WORKER HOLLOW HANDLE Office Visit [facility] [place] [address] [place] [address] [place] [address] Cm Melton MD [address] [address] documented as of this encounter Visit Diagnoses Not on filedocumented in this encounter Care Teams Strike Out Machine Operator Relationship Specialty Start Date End Date Sona Saenz MD [address] [place] [address] PCP - General Internal Medicine 01/09/24 documented as of this encounter
--- OUTSIDE RECORDS SUMMARY | 2024-11-07 07:05 | XMS_ITS | Encounter Summary ---
Author Organization [facility] Address [address] [place] [address] Care Team Providers Care Farmer Cash Grain Name Role Phone Qian Mathur MD Primary Care Provider [phone] Encounter Details Date Type Department Care Team ([facility] st Contact Info) Description 05/15/2023 Telephone [facility] [address] [place] [address] Valerie Magdaleno RN Social History [...] Telephone Encounter - Danna Bean RN - 05/15/2023 10:50 AM CDT Spoke with pt and advised SE is normal. Will await monitor and CCS. * Telephone Encounter - Danna Bean RN - 05/15/2023 10:49 AM CDT ----- Message from Cm Melton MD sent at 05/14/2023 3:24 PM CDT ----- normal stress echo, CPM No findings to account for SOB decent exercise tolerance good HR response to exercise EF 60% No ischemia documented in this encounter Plan of Treatment Upcoming Encounters Date Type Department Care Team (Late st Contact Info) Description 11/09/2024 12:15 PM INSTRUCTIONAL SYSTEMS SPECIALIST Office Visit [facility] [place] [address] [place] [address] [facility] [address] [place] [phone] Cm Melton MD [address] [address] documented as of this encounter Visit Diagnoses Not on filedocumented in this encounter Care Teams Farmer Cash Grain Relationship Specialty Start Date End Date Qian Mathur MD [address] [place] [address] PCP - General Internal Medicine 12/09/22 01/08/24 documented as of this encounter
--- OUTSIDE RECORDS SUMMARY | 2024-11-07 07:05 | XMS_ITS | Encounter Summary ---
Author Organization [facility] Address [address] [place] [address] Care Team Providers Care Home And School Visitor Name Role Phone Sona Saenz MD Primary Care Provider [phone] Encounter Details Date Type Department Care Team ([facility] st Contact Info) Description 06/23/2024 Telephone [facility] [place] [address] [place] [address] Cm Melton MD [address] [address] Social History Tobacco Use Types [...] Telephone Encounter - Danna Bean RN - 06/23/2024 10:56 AM CDT Spoke with pt and advised re Dr Melton's recommendations. Pt v/u and agrees. * Telephone Encounter - Elizabeth Dixon - 06/23/2024 8:07 AM CDT Patient leaving tomorrow to go out of town and will [place] [address] [place] would like to know if this is an issue. documented in this encounter Plan of Treatment Upcoming Encounters Date Type Department Care Team (Late st Contact Info) Description 11/09/2024 12:15 PM VAN OWNER OPERATOR Office Visit [facility] [place] [address] [place] [address] [facility] [address] [place] [phone] Cm Melton MD [address] [id number] documented as of this encounter Visit Diagnoses Not on filedocumented in this encounter Care Teams Home And School Visitor Relationship Specialty Start Date End Date Sona Saenz MD [address] [place] [address] PCP - General Internal Medicine 01/09/24 documented as of this encounter
--- OUTSIDE RECORDS SUMMARY | 2024-11-07 07:05 | XMS_ITS | Encounter Summary ---
Author Organization [facility] Address [address] [place] [address] Care Team Providers Care Milk Handler Name Role Phone Qian Mathur MD Primary Care Provider [phone] Encounter Details Date Type Department Care Team (Latest Contact Info) Description 12/09/2022 10:19 AM SPARERIBS TRIMMER Hospital Encounter [facility] Imaging Mammography [address] [place] [address] Marissa Herrrea MD [address] [facility] [address] [place] [address] Discharge Disposition: Home or Self [...] st Contact Info) Description 11/09/2024 12:15 PM SPARERIBS TRIMMER Office Visit [facility] [place] [address] [place] [address] Cm Melton MD [address] [address] documented as of this encounter Procedures Procedure Name Priority Date/Time Associated Diagnosis Comments MAMMO SCREENING BILATERAL W YASMIN Routine 12/09/2022 10:34 AM SPARERIBS TRIMMER Other screening mammogram documented in this encounter Results * MAMMO SCREENING BILATERAL W YASMIN (12/09/2022 10:34 AM SPARERIBS TRIMMER) Anatomical Region Laterality Modality Breast Bilateral Mammography 12/09/2022 10:3 4 AM SPARERIBS TRIMMER Impressions 12/09/2022 12:08 PM SPARERIBS TRIMMER MAMMOGRAPHY ??NEGATIVE There is no mammographic evidence of malignancy. A 1 year screening mammogram is recommended. ?? SUMMARY: RECOMMENDATIONS: If there is no clinical concern and the patient's physical examination remains negative, routine annual screening mammography is recommended. If there is a clinical symptom/concern, further management should be based on physical examination and clinical assessment. The chief value of a mammogram is to detect a nonpalpable cancer. A negative mammogram should not deter from further evaluation with imaging and/or biopsy, if clinically indicated. Approximately 10% of palpable malignancies cannot be visualized radiographically. ?? MAMMOGRAPHY BI-RADS: 1 NEGATIVE Electronically Signed by: Chetan Cevallos M.D. ? rm/penrad:12/09/2022 12:08:29 ?? letter sent: Normal Single Exam Narrative 12/09/2022 12:08 PM SPARERIBS TRIMMER #[id number] - MAMMO SCREENING BILATERAL W YASMIN BILATERAL DIGITAL SCREENING MAMMOGRAM 3D/2D WITH CAD: 12/09/2022 CLINICAL HISTORY:Routine annual screening mammogram. ?? COMPARISON: Comparison is made to exams dated: 11/08/2021 mammogram, 04/21/2020 mammogram, 12/18/2016 mammogram, 11/17/2015 mammogram, and 11/15/2014 mammogram - [facility]. ?? BREAST COMPOSITION: There are scattered fibroglandular elements (ACR Breast Composition Category B) in both breasts. ?? [employer] Breast Composition Categories ??A [...] been no significant interval change. Procedure Note Chetan Cevallos MD - 12/09/2022 #[id number] - MAMMO SCREENING BILATERAL W YASMIN BILATERAL DIGITAL SCREENING MAMMOGRAM 3D/2D WITH CAD: 12/09/2022 CLINICAL HISTORY:Routine annual screening mammogram. COMPARISON: Comparison is made to exams dated: 11/08/2021 mammogram, 04/21/2020mammogram, 12/18/2016 mammogram, 11/17/2015 mammogram, and 11/15/2014mammogram - [facility]. BREAST COMPOSITION: There are scattered fibroglandular elements (ACRBreast Composition Category B) in both breasts. [employer] Breast Composition Categories A [...] malignancy. A 1 year screeningmammogram is recommended. SUMMARY: RECOMMENDATIONS: If there is no clinical concern and the patient's physical examinationremains negative, routine annual screening mammography is recommended. Ifthere is a clinical symptom/concern, further management should be based onphysical examination and clinical assessment. The chief value of a mammogram is to detect a nonpalpable cancer. Anegative mammogram should not deter from further evaluation with imagingand/or biopsy, if clinically indicated. Approximately 10% of palpablemalignancies cannot be visualized radiographically. MAMMOGRAPHY BI-RADS: 1 NEGATIVE Electronically Signed by: Chetan Cevallos M.D. /lidaloreta:12/09/2022 12:08:29 letter sent: Normal Single Exam Marissa Herrera MD IMG BI PROCEDURES documented in this encounter Visit Diagnoses Diagnosis Other screening mammogram Palpitations- Primary Paroxysmal atrial fibrillation (CMD) Atrial fibrillation S/P ablation of atrial fibrillation Other postprocedural status PVCs (premature ventricular contractions) Other premature beats custodial current use of antiarrhythmic drug long term acute care registered nurse current use of anticoagulant Encounter for long-term (current) use of anticoagulants STAR (obstructive sleep apnea) Obstructive sleep apnea (adult) (pediatric) documented in this encounter Care Teams Milk Handler Relationship Specialty Start Date End Date Qian Mathur MD [address] [address] PCP - General Internal Medicine 12/09/22 01/08/24 documented as of this encounter
--- OUTSIDE RECORDS SUMMARY | 2024-11-07 07:05 | XMS_ITS | Encounter Summary ---
Author Organization [facility] Address [address] [place] [address] Care Team Providers Care Process Chemist Name Role Phone Sona Saenz MD Primary Care Provider [phone] Reason for Visit * Reason Comments [facility] Outreach 3 Encounter Details Date Type Department Care Team ([facility] st Contact Info) Description 06/22/2024 Telephone [facility] [address] [place] [address] Provider, Population Health Support C[facility] Outreach 3 [...] st Contact Info) Description 11/09/2024 12:15 PM ORDER PLANNER Office Visit [facility] [place] [address] [place] [address] [place] [address] Cm Melton MD [address] [address] documented as of this encounter Visit Diagnoses Not on filedocumented in this encounter Care Teams Process Chemist Relationship Specialty Start Date End Date Sona Saenz MD [address] [place] [address] PCP - General Internal Medicine 01/09/24 documented as of this encounter
--- OUTSIDE RECORDS SUMMARY | 2024-11-07 07:05 | XMS_ITS | Encounter Summary ---
Author Organization [facility] Address [address] [place] [address] Care Team Providers Care Roofer Gypsum Name Role Phone Unavailable Primary Care Provider Unavailabl e Encounter Details Date Type Department Care Team (Late st Contact Info) Description 02/27/2014 1:08 AM CDT Hospital [facility] Qian Garcia MD [address] [address] Discharge Disposition: Home or Self Care Social [...] or Self Care documented in this encounter H&P Notes * Qian Mathur MD - 02/27/2014 8:39 AM CDT Patient: TIMOTEO COSTELLO [facility]: [id number] Age: 53 years Sex: FEMALE : 1960 Associated Diagnoses: None Author: QIAN [place] Subjective Chief complaint 53-year-old female with a history of paroxysmal atrial fibrillation who presents to the emergency department with acute onset of palpitations. Patient was found to be in A. fib with rapid rate. Patient underwent DC cardioversion of her atrial fibrillation in April 2013. She still occasionally feels palpitations thought to be due to PVCs per cardiology. She has no chest pain or shortness of breath.She has been compliant with her medications. No fevers or chills. No nausea or vomiting. No GI complaints. ROS: as above, otherwise reviewed across 10 categ and negative. PMH: PAF as above tubal ligation, menopause. tinnitis Med: see med rec SH: with children. 2 drinks/d denies tob. . Health Status Allergies: Allergic Reactions (All) Severity Not Documented Penicillins- No reactions were documented. Current medications: (Selected) Inpatient Medications Ordered Heparin 25,000 unit/250 mL D5W IV premix 25,000 unit: 250 mL, IV, 02/27/14 8:31:00, 250 mL TOTAL Volume, RATE: TITRATE PER CARDIAC/MODERATE PROTOCOL, Infusion, Weight: 66.9 kg Nitrostat: 0.4 mg = 1 tab, SL, As Directed PRN, PRN chest pain, 02/27/14 4:34:00, Tab SL atropine: 0.5 mg = 5 mL, IV Push, As Directed PRN, PRN Other (see order comments), 02/27/14 4:33:00, Injection diltiazem 125 mg [5 mg/hr] + Sodium Chloride 0.9% 125 mL: 125 mL, IV, TITRATE to MAINTAIN, DBP greater than 50, 02/27/14 3:27:00, Routine, 125 mL TOTAL Volume, RATE: 5 mL/hr, Infuse over 25 hr, Weight: 66.9 kg heparin BOLUS injection 1,000 unit/mL: 4,000 unit = 4 mL, IV Push, As Directed PRN, PRN Other (see order comments), 02/27/14 8:31:00, Injection heparin BOLUS injection 1,000 unit/mL: 4,000 unit = 4 mL, IV Push, Once (scheduled), 02/27/14 9:00:00, Stop: 02/27/14 9:00:00, Injection lidocaine 2,000 mg + .premixed in Dextrose 5% 500 mL: 500 mL, IV, 02/27/14 4:34:00, 500 mL TOTAL Volume, RATE: Begin at 2 mg/min PRN ventricular tachycardia, Weight: 66.9 kg lidocaine PF injection 2% 20 mg/mL: 75 mg = 3.75 mL, IV Push, As Directed PRN, PRN Other (see ordercomments), 05/04/14 4:34:00, Injection Prescriptions Prescribed Cardizem CD oral 120 mg 24-hour capsule: 120 mg = 1 cap, Oral, Daily, Cap CD, # 30 cap, 3 Refills, Maintenance, Pharmacy: [facility] Documented Medications Documented Freetext Home Medication: Biotin for skin, nails and hair, 3 caps, Oral, Daily, Maintenance Probiotic Formula oral capsule: = 1 cap, Oral, Daily, Maintenance aspirin buffered 81 mg oral tablet: 81 mg = 1 tab, Oral, Q Bedtime, Maintenance Objective General: Alert and oriented, No acute distress. HENT: Normocephalic. Neck: Supple, Non-tender, No carotid bruit, No thyromegaly. Respiratory: Lungs are clear to auscultation. Cardiovascular: Normal rate, Irregular rhythm, No murmur, No gallop. Gastrointestinal: Soft, Non-tender. Genitourinary: No costovertebral angle tenderness. Lymphatics: No lymphadenopathy neck, axilla, groin. Musculoskeletal: Normal range of motion, Normal strength. Neurologic: Alert, Oriented, Normal sensory, Normal motor function, no tremors. Psychiatric: Cooperative, Appropriate mood & affect. Results Review General results Today's results 02/26/2014 22:55 Creatinine 0.93 mg/dL Troponin I <0.02 ng/mL WBC 4.6 THOUSAND/mcL Interpretation: ekg - afib w/ RVR HR 140 DIONTE 04/2013 IMPRESSION: 1. No evidence of thrombus in the left atrium or left atrial appendage. 2. Normal left ventricular size, wall thickness, and systolic function. Ejection fraction estimated at 60%. 3. Mild mitral regurgitation. Borderline mitral prolapse. 4. Mild tricuspid regurgitation. 5. Redundancy of the interatrial septum without evidence of interatrial shunting by color flow Doppler or agitated saline bubble contrast study. 6. No pericardial effusion. 7. No significant aortic atherosclerosis. Impression and Plan Assessment and Plan: Diagnosis: PAF IV heparin and Cardizem per cardiology Plan for cardioversion tomorrow . Electronically Signed On 02/27/2014 08:44 AM ONDINA, QIAN DEVI documented in this encounter Plan of Treatment Upcoming Encounters Date Type Department Care Team (Late st Contact Info) Description 11/09/2024 12:15 PM [employer] Office Visit [facility] [address] [place] [id number] Cm Melton MD [address] [address] documented as of this encounter Procedures Procedure Name Priority Date/Time Associated Diagnosis Comments PARTIAL THROMBOPLASTIN TIME Routine 02/28/2014 11:39 AM CDT ELECTROCARDIOGRAM 12-LEAD Routine 2013 10:26 AM CDT PARTIAL THROMBOPLASTIN TIME Routine 02/28/2014 5:21 AM CDT CBC NO DIFFERENTIAL Routine 02/28/2014 5 :21 AM CDT ELECTROCARDIOGRAM 12-LEAD Routine 2013 12:00 AM CDT ELECTROCARDIOGRAM 12-LEAD Routine 2013 12:00 AM CDT PARTIAL THROMBOPLASTIN TIME Routine 02/27/2014 10:30 PM CDT PARTIAL THROMBOPLASTIN TIME Routine 02/27/2014 4:30 PM CDT THYROID STIMULATING HORMONE REFLEX Routine 02/27/2014 8:30 AM CDT PARTIAL THROMBOPLASTIN TIME Routine 02/27/2014 8:30 AM CDT PROTHROMBIN TIME Routine 02/27/2014 8:30 AM CDT BASIC METABOLIC PANEL Routine 02/27/2014 6:00 AM CDT CBC NO DIFFERENTIAL Routine 02/27/2014 6 :00 AM CDT XR HISTORICAL PROCEDURE Routine 02/27/20 14 11:34 PM CDT BASIC METABOLIC PANEL Routine 02/26/2014 10:55 PM CDT TROPONIN I ULTRA SENSITIVE Routine 02/26/2014 10:55 PM CDT CBC & AUTO DIFFERENTIAL Routine 02/27/20 14 10:55 PM CDT CREATINE KINASE MB Routine 02/26/2014 10 :55 PM CDT CREATINE KINASE Routine 02/26/2014 10:55 PM CDT ELECTROCARDIOGRAM 12-LEAD Routine 2013 10:47 PM CDT documented in this encounter Results * (ABNORMAL) Partial Thromboplastin Time (02/28/2014 11:39 AM CDT) PTT 54(H) 22 - 32 seconds HISTORICAL DATA MIGRATION Comment: PTT Therapeutic Range: ??55 to [address] [facility] [address], [address] 02/28/2014 11:3 9 AM CDT 02/28/2014 11:39 AM CDT Javon Valderrama MD LAB BLOOD ORDERABLES HISTORICAL DATA MIGRATION * Electrocardiogram 12-Lead (02/28/2014 10:26 AM CDT) Narrative HISTORICAL DATA MIGRATION - 02/28/2014 10:26 AM CDT 60 Ventricular Rate BPM 60 Atrial Rate BPM 170 P-R Interval ms 78 QRS Duration ms 440 Q-T Interval ms 440 QTC Calculation(Bezet) ms 74 P [place] degrees 37 R [place] degrees 63 T [place] degrees Normal sinus rhythm Normal ECG When compared with ECG of 26-FEB-2014 22:47, Sinus rhythm has replaced Atrial fibrillation Vent. rate has decreased BY ??[address] no longer depressed in Inferior leads ST no longer depressed in Anterior-lateral leads T wave inversion no longer evident in Inferior leads Confirmed by JASMINE RITTER ([id number]) on 02/28/2014 12:30:05 PM Procedure Note Provider, Andi Fletcher Historical Conversion - 07/30/2019 60 Ventricular Rate BPM 60 Atrial Rate BPM 170 P-R Interval ms 78 QRS Duration ms 440 Q-T Interval ms 440 QTC Calculation(Bezet) ms 74 P [place] degrees 37 R [place] degrees 63 T [place] degrees Normal sinus rhythm Normal ECG When compared with ECG of 26-FEB-2014 22:47, Sinus rhythm has replaced Atrial fibrillation Vent. rate has decreased BY [address] no longer depressed in Inferior leads ST no longer depressed in Anterior-lateral leads T wave inversion no longer evident in Inferior leads Confirmed by JASMINE RITTER ([id number]) on 02/28/2014 12:30:05 PM Andi Fletcher Historical Conversion Provid er ECG ORDERABLES Performing Organization Address [facility] de Phone Number HISTORICAL DATA MIGRATION * (ABNORMAL) Partial Thromboplastin Time (02/28/2014 5:21 AM CDT) PTT 57(H) 22 - 32 seconds HISTORICAL DATA MIGRATION Comment: PTT Therapeutic Range: ??55 to [address] [facility] [address], [address] 02/28/2014 5:21 AM CDT 02/28/2014 5:21 AM CDT Javon Valderrama MD LAB BLOOD ORDERABLES Performing Organization Address [facility]/ZIP Co de Phone Number HISTORICAL DATA MIGRATION * (ABNORMAL) CBC No Differential (02/28/2014 5:21 AM CDT) RBC 4.59 4.00 - 5.20 MILLION/mc L HISTORICAL DATA MIGRATION Comment: [facility] [address], [address] HGB 14.1 12.0 - 15.5 gm/dL HISTORICAL DATA MIGRATION Comment: [facility] [address], [address] Hematocrit 41.7 36.0 - 46.5 % HISTORICAL DATA MIGRATION Comment: [facility] [address], [address] MCV 90.8 78.0 - 100.0 fL HISTORICAL DATA MIGRATION Comment: [address], [address] MCH 30.7 26.0 - 34.0 pg HISTORICAL DATA MIGRATION Comment: [facility] [address], [address] MCHC 33.8 32.0 - 36.5 gm/dL HISTORICAL DATA MIGRATION Comment: [address], [address] RDW-CV 12.8 11.0 - 15.0 % HISTORICAL DATA MIGRATION Comment: [address], [address] PLT 210 140 - 450 THOUSAND/m cL HISTORICAL DATA MIGRATION Comment: [address], [address] WBC 3.8(L) 4.2 - 11.0 THOUSAND/m cL HISTORICAL DATA MIGRATION Comment: [address], [address] 02/28/2014 5:21 AM CDT 02/28/2014 5:21 AM CDT Javon Valderrama MD LAB BLOOD ORDERABLES Performing Organization Address [facility] Co de Phone Number HISTORICAL DATA MIGRATION * Electrocardiogram 12-Lead (02/28/2014 12:00 AM CDT) Narrative HISTORICAL DATA MIGRATION - 02/28/2014 12:00 AM CDT CHECK ONBASE FOR SCAN Procedure Note Provider, Andi Fletcher Historical Conversion - 07/30/2019 CHECK ONBASE FOR SCAN Andi Fletcher Historical Conversion Provid er ECG ORDERABLES Performing Organization Address [facility] Co de Phone Number HISTORICAL DATA MIGRATION * Electrocardiogram 12-Lead (02/28/2014 12:00 AM CDT) Narrative HISTORICAL DATA MIGRATION - 02/28/2014 12:00 AM CDT CHECK ONBASE FOR SCAN Procedure Note Provider, Andi Ramirezartur Historical Conversion - 07/30/2019 CHECK ONBASE FOR SCAN yuval Justine Historical Conversion Provid er ECG ORDERABLES Performing Organization Address [facility] de Phone Number HISTORICAL DATA MIGRATION * (ABNORMAL) Partial Thromboplastin Time (02/27/2014 10:30 PM CDT) PTT 53(H) 22 - 32 seconds HISTORICAL DATA MIGRATION Comment: PTT Therapeutic Range: ??55 to 90 seconds. [facility] [address], [address] 02/27/2014 10:3 0 PM CDT 02/27/2014 10:30 PM CDT Javon Valderrama MD LAB BLOOD ORDERABLES Performing Organization Address [facility] de Phone Number HISTORICAL DATA MIGRATION * (ABNORMAL) Partial Thromboplastin Time (02/27/2014 4:30 PM CDT) PTT 78(H) 22 - 32 seconds HISTORICAL DATA MIGRATION Comment: PTT Therapeutic Range: ??55 to 90 seconds. [facility] [address], [address] 02/27/2014 4:30 PM CDT 02/27/2014 4:30 PM CDT Javon Valderrama MD LAB BLOOD ORDERABLES Performing Organization Address [facility] de Phone Number HISTORICAL DATA MIGRATION * Thyroid Stimulating Hormone Reflex (02/27/2014 8:30 AM CDT) TSH 1.670 0.350 - 5.000 mcunit/mL HISTORICAL DATA MIGRATION Comment: Findings most consistent with euthyroid state, [...] dopamine, carbamazepine, iodine, amiodarone, lithium and heparin.) [facility] [address], [address] 02/27/2014 8:30 AM CDT 02/27/2014 8:30 AM CDT Qian Mathur MD LAB BLOOD ORDERABLES Performing Organization Address [facility] Co de Phone Number HISTORICAL DATA MIGRATION * (ABNORMAL) Prothrombin Time (02/27/2014 8:30 AM CDT) INR 1.2 HISTORICAL DATA MIGRATION Comment: INR Therapeutic Range: 2.0 to 3.0 (2.5 to 3.5 recommended for recurrent thrombotic episodes and mechanical prosthetic heart valves.) [facility] [address], [address] PROTIME-PT 13.1(H) 9.4 - 11.8 seconds HISTORICAL DATA MIGRATION Comment: [facility] [address], [address] 02/27/2014 8:30 AM CDT 02/27/2014 8:30 AM CDT Javon Valderrama MD LAB BLOOD ORDERABLES Performing Organization Address [facility] de Phone Number HISTORICAL DATA MIGRATION * (ABNORMAL) Partial Thromboplastin Time (02/27/2014 8:30 AM CDT) PTT 40(H) 22 - 32 seconds HISTORICAL DATA MIGRATION Comment: PTT Therapeutic Range: ??55 to 90 seconds. [facility] [address], [address] 02/27/2014 8:30 AM CDT 02/27/2014 8:30 AM CDT Javon Valderrama MD LAB BLOOD ORDERABLES Performing Organization Address [facility]/State/ZIP Co de Phone Number HISTORICAL DATA MIGRATION * (ABNORMAL) CBC No Differential (02/27/2014 6:00 AM CDT) RBC 4.47 4.00 - 5.20 MILLION/mc L HISTORICAL DATA MIGRATION Comment: [address], [address] HGB 13.8 12.0 - 15.5 gm/dL HISTORICAL DATA MIGRATION Comment: [address], [address] Hematocrit 40.1 36.0 - 46.5 % HISTORICAL DATA MIGRATION Comment: [address], [address] MCV 89.7 78.0 - 100.0 fL HISTORICAL DATA MIGRATION Comment: [address], [address] MCH 30.9 26.0 - 34.0 pg HISTORICAL DATA MIGRATION Comment: [address], [address] MCHC 34.4 32.0 - 36.5 gm/dL HISTORICAL DATA MIGRATION Comment: [address], [address] RDW-CV 12.7 11.0 - 15.0 % HISTORICAL DATA MIGRATION Comment: [address], [address] PLT 212 140 - 450 THOUSAND/m cL HISTORICAL DATA MIGRATION Comment: [address], [address] WBC 4.0(L) 4.2 - 11.0 THOUSAND/m cL HISTORICAL DATA MIGRATION Comment: [address], [address] 02/27/2014 6:00 AM CDT 02/27/2014 6:00 AM CDT Qian Mathur MD LAB BLOOD ORDERABLES HISTORICAL DATA MIGRATION * (ABNORMAL) Basic Metabolic Panel (02/27/2014 6:00 AM CDT) Sodium 142 135 - 145 mmol/L HISTORICAL DATA MIGRATION Comment: [facility] [address], [address] Potassium 4.1 3.4 - 5.1 mmol/L HISTORICAL DATA MIGRATION Comment: [facility] [address], [address] Chloride 104 98 - 107 mmol/L HISTORICAL DATA MIGRATION Comment: [address], [address] Carbon Dioxide 27 21 - 32 mmol/L HISTORICAL DATA MIGRATION Comment: [address], [address] Anion Gap 15 10 - 20 mmol/L HISTORICAL DATA MIGRATION Comment: [facility] [address], [address] BUN 11 10 - 20 mg/dL HISTORICAL DATA MIGRATION Comment: [address], [address] Creatinine 0.80 0.50 - 1.10 mg/dL HISTORICAL DATA MIGRATION Comment: [address], [address] GFR Estimate, >60 >59 HISTORICAL DATA MIGRATION Comment: Units = mL/min/1.73m2 [address], [address] GFR Estimate, Non >60 >59 HISTORICAL DATA MIGRATION Comment: Units = mL/min/1.73m2 [address], [address] BUN/Creatinine Ratio 14 7 - 25 HISTORICAL DATA MIGRATION Comment: [address], [address] PTH CALCIUM 8.9 8.4 - 10.2 mg/dL HISTORICAL DATA MIGRATION Comment: [address], [address] Glucose 144(H) 65 - 99 mg/dL HISTORICAL DATA MIGRATION Comment: [facility] [address] [place], [address] 02/27/2014 6:00 AM CDT 02/27/2014 6:00 AM CDT Qian Mathur MD LAB BLOOD ORDERABLES HISTORICAL DATA MIGRATION * XR HISTORICAL PROCEDURE (02/26/2014 11:34 PM CDT) Anatomical Region Laterality Modality N/A Radiographic Sandie ging 02/26/2014 11:3 4 PM CDT 02/26/2014 11:34 PM CDT Impressions 02/26/2014 11:34 PM CDT No infiltrate, consolidation or pulmonary edema. ??F I N A L ?? Transcribed By: SANDRA 02/26/14 11:36 pm Dictated By: ?POLLY NGUYỄN Electronically Reviewed and Approved By: ? POLLY NGUYỄN ??02/26/14 11:37 pm Narrative 02/26/2014 11:34 PM CDT Portable chest: HISTORY: Chest pain COMPARISON: None Normal heart size. No focal consolidation, infiltrate or pulmonary edema. No pleural effusion. There are increased lung markings at the lung apices which could related to areas of scarring. Followup radiograph for determination of stability over time since no prior examinations for comparison. Procedure Note Provider, Andi Fletcher Historical Conversion - 07/30/2019 Portable chest: HISTORY: Chest pain COMPARISON: None Normal heart size. No focal consolidation, infiltrate or pulmonary edema.No pleural effusion. There are increased lung markings at the lung apiceswhich could related to areas of scarring. Followup radiograph fordetermination of stability over time since no prior examinations forcomparison. IMPRESSION: No infiltrate, consolidation or pulmonary edema. F I N AL Transcribed By: SANDRA 02/26/14 11:36 pm Dictated By: POLLY NGUYỄN Electronically Reviewed and Approved By: POLLY NGUYỄN02/26/14 11:37 pm [employer] Historical Conversion Provid er IMG XR PROCEDURES * Troponin I Ultra Sensitive (02/26/2014 10:55 PM CDT) TROPONIN I <0.02 <0.05 ng/mL HISTORICAL DATA MIGRATION Comment: [address], [address] 02/26/2014 10:5 5 PM CDT 02/26/2014 10:55 PM CDT Narrative HISTORICAL DATA MIGRATION - 02/26/2014 10:55 PM CDT FOR ED USE ONLY Manfred Meyer MD LAB BLOOD ORDERABLES HISTORICAL DATA MIGRATION * CBC & Auto Differential (02/26/2014 10:55 PM CDT) Pathologist [facility] WBC 4.6 4.2 - 11.0 THOUSAND /mcL HISTORICAL DATA MIGRATION Comment: [address], [address] RBC 4.40 4.00 - 5.20 MILLION/ mcL HISTORICAL DATA MIGRATION Comment: [address], [address] HGB 13.8 12.0 - 15.5 gm/dL HISTORICAL DATA MIGRATION Comment: [address], [address] Hematocrit 39.7 36.0 - 46.5 % HISTORICAL DATA MIGRATION Comment: [address], [address] MCV 90.2 78.0 - 100.0 fL HISTORICAL DATA MIGRATION Comment: [address], [address] MCH 31.4 26.0 - 34.0 pg HISTORICAL DATA MIGRATION Comment: [address], [address] MCHC 34.8 32.0 - 36.5 gm/dL HISTORICAL DATA MIGRATION Comment: [address], [address] RDW-CV 12.7 11.0 - 15.0 % HISTORICAL DATA MIGRATION Comment: [address], [address] PLT 216 140 - 450 THOUSAND /mcL HISTORICAL DATA MIGRATION Comment: [address], [address] DIFF TYPE AUTOMATED DIFFERENTIAL HISTORICAL DATA MIGRATION Comment: [address], [address] SEG N/A HISTORICAL DATA MIGRATION Comment: [address], [address] Neutrophil 47 % HISTORICA L DATA MIGRATION Comment: [address], [address] LYMPH 40 % HISTORICAL DATA MIGRATION Comment: [address], [address] MONO 7 % HISTORICAL DATA MIGRATION Comment: [address], [address] EOSIN 5 % HISTORICAL DATA MIGRATION Comment: [address], [address] BASO 1 % HISTORICAL DATA MIGRATION Comment: [address], [address] Absolute Neutrophil 2.2 1.8 - 7.7 THOUSAND /mcL HISTORICAL DATA MIGRATION Comment: [address], [address] Absolute Lymph 1.9 1.0 - 4.0 THOUSAND /mcL HISTORICAL DATA MIGRATION Comment: [address], [address] Absolute [place] 0.3 0.3 - 0.9 THOUSAND /mcL HISTORICAL DATA MIGRATION Comment: [address], [address] Absolute Eos 0.2 0.1 - 0.5 THOUSAND /mcL HISTORICAL DATA MIGRATION Comment: [address], [address] Absolute Baso 0.0 0.0 - 0.3 THOUSAND /mcL HISTORICAL DATA MIGRATION Comment: [address], [address] 02/26/2014 10:5 5 PM CDT 02/26/2014 10:55 PM CDT Narrative HISTORICAL DATA MIGRATION - 02/26/2014 10:55 PM CDT FOR ED USE ONLY Manfred Meyer MD LAB BLOOD ORDERABLES HISTORICAL DATA MIGRATION * (ABNORMAL) Basic Metabolic Panel (02/26/2014 10:55 PM CDT) Sodium 144 135 - 145 mmol/L HISTORICAL DATA MIGRATION Comment: [address], [address] Potassium 3.7 3.4 - 5.1 mmol/L HISTORICAL DATA MIGRATION Comment: [address], [address] Chloride 104 98 - 107 mmol/L HISTORICAL DATA MIGRATION Comment: [address], [address] Carbon Dioxide 29 21 - 32 mmol/L HISTORICAL DATA MIGRATION Comment: [address], [address] Anion Gap 15 10 - 20 mmol/L HISTORICAL DATA MIGRATION Comment: [address], [address] BUN 14 10 - 20 mg/dL HISTORICAL DATA MIGRATION Comment: [address], [address] Creatinine 0.93 0.50 - 1.10 mg/dL HISTORICAL DATA MIGRATION Comment: [address], [address] GFR Estimate, >60 >59 HISTORICAL DATA MIGRATION Comment: Units = mL/min/1.73m2 [address], [address] GFR Estimate, Non >60 >59 HISTORICAL DATA MIGRATION Comment: Units = mL/min/1.73m2 [address], [address] BUN/Creatinine Ratio 15 7 - 25 HISTORICAL DATA MIGRATION Comment: [address], [address] PTH CALCIUM 9.3 8.4 - 10.2 mg/dL HISTORICAL DATA MIGRATION Comment: [address], [address] Glucose 102(H) 65 - 99 mg/dL HISTORICAL DATA MIGRATION Comment: [address], [address] 02/26/2014 10:5 5 PM CDT 02/26/2014 10:55 PM CDT Narrative HISTORICAL DATA MIGRATION - 02/26/2014 10:55 PM CDT FOR ED USE ONLY Manfred Meyer MD LAB BLOOD ORDERABLES Performing Organization Address City/[facility] Co de Phone Number HISTORICAL DATA MIGRATION * Creatine Kinase (02/26/2014 10:55 PM CDT) CPK 97 26 - 192 unit/L HISTORICAL DATA MIGRATION Comment: [address], [address] 02/26/2014 10:5 5 PM CDT 02/26/2014 10:55 PM CDT Narrative HISTORICAL DATA MIGRATION - 02/26/2014 10:55 PM CDT FOR ED USE ONLY Manfred Meyer MD LAB BLOOD ORDERABLES Performing Organization Address City/[facility]/ZIP Co de Phone Number HISTORICAL DATA MIGRATION * Creatine Kinase MB (02/26/2014 10:55 PM CDT) CK-MB 0.9 <5.1 ng/mL HISTORICA L DATA MIGRATION Comment: [facility] [address] [place], [address] 02/26/2014 10:5 5 PM CDT 02/26/2014 10:55 PM CDT Narrative HISTORICAL DATA MIGRATION - 02/26/2014 10:55 PM CDT FOR ED USE ONLY Manfred Meyer MD LAB BLOOD ORDERABLES HISTORICAL DATA MIGRATION * Electrocardiogram 12-Lead (02/26/2014 10:47 PM CDT) Narrative HISTORICAL DATA MIGRATION - 02/26/2014 10:47 PM CDT 138 Ventricular Rate BPM 122 Atrial Rate BPM 86 QRS Duration ms 316 Q-T Interval ms 478 QTC Calculation(Bezet) ms 55 R [place] degrees 257 T [place] degrees Atrial fibrillation ST depression consistent with ischemia/subendocardial injury When compared with ECG of 19-MAY-2013 09:20, Atrial fibrillation has replaced Sinus rhythm Vent. rate has increased BY ??[address] now depressed in Inferior leads ST now depressed in Anterior-lateral leads T wave inversion now evident in Inferior leads Confirmed by JASMINE RITTER ([id number]) on 02/27/2014 6:54:09 PM Procedure Note Provider, Andi Fletcher Historical Conversion - 07/30/2019 138 Ventricular Rate BPM 122 Atrial Rate BPM 86 QRS Duration ms 316 Q-T Interval ms 478 QTC Calculation(Bezet) ms 55 R [place] degrees 257 T [place] degrees Atrial fibrillation ST depression consistent with ischemia/subendocardial injury When compared with ECG of 19-MAY-2013 09:20, Atrial fibrillation has replaced Sinus rhythm Vent. rate has increased BY [address] now depressed in Inferior leads ST now depressed in Anterior-lateral leads T wave inversion now evident in Inferior leads Confirmed by JASMINE RITTER ([id number]) on 02/27/2014 6:54:09 PM Andi Fletcher Historical Conversion Provid er ECG ORDERABLES HISTORICAL DATA MIGRATION documented in this encounter Visit Diagnoses Not on filedocumented in this encounter
--- OUTSIDE RECORDS SUMMARY | 2024-11-07 07:05 | XMS_ITS | Encounter Summary ---
Author Organization [facility] Address [address] [place] [address] Care Team Providers Care Turpentine Distiller Name Role Phone Jeison Orozco MD Primary Care Provider [phone] Reason for Referral * Radiology Services (Routine) - Closed Specialty Diagnoses / Procedures Referred By Contac t Referred To Contact Radiology-Diagnostic Radiology / Radiology Diagnoses Screening for osteoporosis Procedures DEXA SCAN AXIAL SKELETON Marissa Herrera MD [address] [address], [address] [address] Referral ID Status Reason Start Date Expiration Date Visits Re quested Visits Authorized [id number] Closed 04/12/2020 04/12/2021 1 1 Reason for Visit * Radiology Services (Routine) - Closed Specialty Diagnoses / Procedures Referred By Contac t Referred To Contact Radiology-Diagnostic Radiology / Radiology Diagnoses Screening for osteoporosis Procedures DEXA SCAN AXIAL SKELETON Marissa Herrera MD [address] [facility] 1, [address] [address] Referral ID Status Reason Start Date Expiration Date Visits Re quested Visits Authorized [id number] Closed 04/12/2020 04/12/2021 1 1 Encounter Details Date Type Department Care Team (Latest Contact Info) Description 04/21/2020 10:30 AM CDT - 04/21/2020 10:48 AM CDT Hospital Encounter [facility] [address] [place] [address] Marissa Herrera MD [address] [address], [address] [place], [place] [phone] Discharge Disposition: Home or Self Care Social [...] st Contact Info) Description 11/09/2024 12:15 PM DRY SANDER Office Visit [facility] [place] [address] [address] [address] [address] [address] [address] [place] [address] Cm Melton MD [address] [id number] documented as of this encounter Procedures Procedure Name Priority Date/Time Associated Diagnosis Comments BD DEXA AXIAL SKELETON Routine 04/21/2020 10:49 AM CDT Screening for osteoporosis documented in this encounter Results * DEXA SCAN AXIAL SKELETON (04/21/2020 10:49 AM CDT) Anatomical Region Laterality Modality Bone Density Dual-energy X-ra y Absorptiometry 04/21/2020 10:5 5 AM CDT Impressions 04/21/2020 10:56 AM CDT Bone mineral density is in the osteopenia category. See above. Fracture risk estimated using the FRAX calculator : The estimated 10-year risk for a major osteoporotic fracture is 8.5% and a hip fracture is 0.8%. Classification of patient's bone density based on [...] Signed by: DEVI BROOKS M.D. Signed on: 04/21/2020 10:56 AM Narrative 04/21/2020 10:56 AM CDT EXAM: BD DEXA AXIAL SKELETON CLINICAL INDICATION: Three year follow up. Post menopausal woman osteopenia COMPARISON: 12/18/2016 This examination was performed on a Hologic Densitometer LUMBAR SPINE ??L1-L4 Bone mineral density: ??.855 T-score: -1.7 Percent young adult: 82 Z-score: -.2 % Age matched: 89 LEFT HIP Bone mineral density total: .840 T-score: -.8 % Young adult: 89 Z-score: .2 % Age matched: 89 FEMORAL NECK Bone mineral density: .664 T-score: -1.7 % Young adult: 78 Z-score: -.3 % Age matched: 89 FINDINGS: Bone mineral density is in the osteopenia category. When compared to the most recent study of 12/18/2016 there has been a statistically significant increase in bone mineral density of the lumbar spine of 2.8 % and a statistically significant decrease in bone mineral density of the total hip of 3.4%. At this facility the least significant change in BMD with a 95% confidence is ??0.862472 gm/cm2 at the total hip, 0.150702 gm/cm2 at the femoral neck and 0.791263 gm/cm2 at the 1/3 radius. Procedure Note Devi Brooks MD - 04/21/2020 EXAM: BD DEXA AXIAL SKELETON CLINICAL INDICATION: Three year follow up. Post menopausal womanosteopenia COMPARISON: 12/18/2016 This examination was performed on a Hologic Densitometer LUMBAR SPINE L1-L4 Bone mineral density: .855 T-score: -1.7 Percent young adult: 82 Z-score: -.2 % Age matched: 89 LEFT HIP Bone mineral density total: .840 T-score: -.8 % Young adult: 89 Z-score: .2 % Age matched: 89 FEMORAL NECK Bone mineral density: .664 T-score: -1.7 % Young adult: 78 Z-score: -.3 % Age matched: 89 FINDINGS: Bone mineral density is in the osteopenia category. When compared to the most recent study of 12/18/2016 there has been astatistically significant increase in bone mineral density of the lumbarspine of 2.8 % and a statistically significant decrease in bone mineraldensity of the total hip of 3.4%. At this facility the least significant change in BMD with a 95% confidenceis 0.348443 gm/cm2 at the total hip, 0.403501 gm/cm2 at the femoral neckand 0.054294 gm/cm2 at the 1/3 radius. IMPRESSION: Bone mineral density is in the osteopenia category. See above. Fracture risk estimated using the FRAX calculator : The estimated 10-yearrisk for a major osteoporotic fracture is 8.5% and a hip fracture is0.8%. Classification of patient's bone density based on current [employer] Health[employer] criteria: * Normal: A value for bone mineral density (BMD) within 1.0 standarddeviation (SD) of a young adult reference mean. * Osteopenia (low bone mass): BMD between 1.0 SD to 2.5 SD below the youngadult mean. * Osteoporosis: BMD greater than or equal to 2.5 SD below young adultmean. Severe osteoporosis (established): BMD greater than 2.5 SD below adultmean in the presence of one or more fragility fractures. Electronically Signed by: DEVI BROOKS M.D. Signed on: 04/21/2020 10:56 AM Marissa Herrera MD [facility] PROCEDURES documented in this encounter Visit Diagnoses Diagnosis Screening for osteoporosis Special screening for osteoporosis Palpitations- Primary Paroxysmal atrial fibrillation (CMD) Atrial fibrillation S/P ablation of atrial fibrillation Other postprocedural status PVCs (premature ventricular contractions) Other premature beats [facility] current use of antiarrhythmic drug [facility] current use of anticoagulant Encounter for long-term (current) use of anticoagulants STAR (obstructive sleep apnea) Obstructive sleep apnea (adult) (pediatric) documented in this encounter Care Teams Turpentine Distiller Relationship Specialty Start Date End Date Jeison Orozco MD PCP - General 11/10/19 12/08/22 documented as of this encounter
--- OUTSIDE RECORDS SUMMARY | 2024-11-07 07:05 | XMS_ITS | Encounter Summary ---
Author Organization [facility] Address [address] [place] [address] Care Team Providers Care Coffee Farmer Name Role Phone Sona Saenz MD Primary Care Provider [phone] Reason for Visit * Reason Comments Cipher Outreach 2 Encounter Details Date Type Department Care Team ([facility] Contact Info) Description 06/15/2024 Telephone [facility] [address] [place] [address] Provider, Population Health Support Cipher Outreach 2 [...] phone, visiting friends or family, going to zoroastrianism or club meetings) 5 or more times [...] Contact Info) Description 11/09/2024 12:15 PM RN MATERNAL CHILD Office Visit [facility] [place] [address] [place] [address] [place] [address] Cm Melton MD [address] [address] documented as of this encounter Visit Diagnoses Not on filedocumented in this encounter Care Teams Coffee Farmer Relationship Specialty Start Date End Date Sona Saenz MD [address] [place] [address] PCP - General Internal Medicine 01/09/24 documented as of this encounter
--- OUTSIDE RECORDS SUMMARY | 2024-11-07 07:05 | XMS_ITS | Encounter Summary ---
Author Organization [facility] Address [address] [place] [address] Care Team Providers Care Multimedia Editor Name Role Phone Sona Saenz MD Primary Care Provider [phone] Reason for Visit * Reason Comments Cipher Outreach 2 Encounter Details Date Type Department Care Team ([facility] Contact Info) Description 06/15/2024 Telephone [facility] [address] [place] [address] Provider, Population Health Support Cipher Outreach 2 [...] Date Record ed How often does anyone, cartio resendiz family and friends, physically hurt you??? [...] st Contact Info) Description 11/09/2024 12:15 PM HEEL CEMENTER MACHINE Office Visit [facility] [place] [address] [place] [address] [place] [address] Cm Melton MD [address] [address] documented as of this encounter Visit Diagnoses Not on filedocumented in this encounter Care Teams Multimedia Editor Relationship Specialty Start Date End Date Sona Saenz MD [address] [place] [address] PCP - General Internal Medicine 01/09/24 documented as of this encounter
--- OUTSIDE RECORDS SUMMARY | 2024-11-07 07:05 | XMS_ITS | Encounter Summary ---
Author Organization [facility] Address [address] [place] [address] Care Team Providers Care Intranet Specialist Name Role Phone Sona Saenz MD Primary Care Provider [phone] Reason for Visit * Radiology Services (Routine) - Closed Specialty Diagnoses / Procedures Referred By Delmi zee Referred To Contact Radiology-Diagnostic Radiology / Radiology Diagnoses Encounter for screening mammogram for malignant neoplasm of breast Procedures MAMMO SCREENING BILATERAL W YASMIN MAMMO SCREENING BILATERAL W YASMIN SCREENING MAMMOGRAPHY BI 2-VIEW BREAST INC CAD SCREENING DIGITAL BREAST TOMOSYNTHESIS BILATERAL Marissa Herrera MD [address] [facility] [place] [address] [place] [address] Referral ID Status Reason Start Date Expiration Date Visits Re quested Visits Authorized [id number] Closed 12/31/2023 07/02/2025 1 1 Encounter Details Date Type Department Care Team (Latest Contact Info) Description 01/09/2024 8:28 AM CDT - 01/09/2024 11:59 PM CDT Hospital Encounter [facility] [address] [place], [place] [phone] Qian Mathur MD [address] [facility] [address] [place] [address] Marissa Herrera MD [address] [facility] [place] [address] [place], [place] [address] Discharge Disposition: Home or Self Care Social [...] Take 81 mg by mouth daily. 06/06/2024 metoPROLOL succinate (Toprol XL) 25 MG 24 hr tablet Take 1 tablet by mouth daily. 90 tablet 3 06/26/2023 09/09/2024 documented as of this encounter Discharge Disposition Disposition Code Departure Means Destination Home or Self Care documented in this encounter Plan of Treatment Upcoming Encounters Date Type Department Care Team (Late st Contact Info) Description 11/09/2024 12:15 PM NEUROLOGICAL SURGERY TEACHER [facility] Visit [facility] [address] [place] [address] Cm Melton MD [address] [address] documented as of this encounter [...] Electronically Signed by: Shelia Brooks M.D. ? jk/penrad:01/09/2024 09:19:38 ?? letter sent: Normal Single Exam Narrative 01/09/2024 9:19 AM CDT #[id number] - MAMMO SCREENING BILATERAL W YASMIN BILATERAL DIGITAL SCREENING MAMMOGRAM 3D/2D WITH CAD: 01/09/2024 CLINICAL HISTORY:Routine annual screening mammogram - tomosynthesis. ?? COMPARISON: Comparison is made to exams dated: 12/09/2022 mammogram, 11/08/2021 mammogram, 04/21/2020 mammogram, 12/18/2016 mammogram, and 11/17/2015 mammogram - [facility]. ?? BREAST COMPOSITION: There are scattered fibroglandular elements (ACR Breast Composition Category B) in both breasts. ?? [employer] Breast Composition Categories ??A [...] Procedure Note Shelia Brooks MD - 01/09/2024 #[id number] - MAMMO SCREENING BILATERAL W YASMIN BILATERAL DIGITAL SCREENING MAMMOGRAM 3D/2D WITH CAD: 01/09/2024 CLINICAL HISTORY:Routine annual screening mammogram - tomosynthesis. COMPARISON: Comparison is made to exams dated: 12/09/2022 mammogram, 11/08/2021mammogram, 04/21/2020 mammogram, 12/18/2016 mammogram, and 11/17/2015mammogram - [facility]. BREAST COMPOSITION: There are scattered fibroglandular elements (ACRBreast Composition Category B) in both breasts. [employer] Breast Composition Categories A [...] (premature ventricular contractions) Other premature beats terminal superintendent current use of antiarrhythmic drug terminal superintendent current use of anticoagulant Encounter for long-term (current) use of anticoagulants STAR (obstructive sleep apnea) Obstructive sleep apnea (adult) (pediatric) documented in this encounter Care Teams Intranet Specialist Relationship Specialty Start Date End Date Sona Saenz MD [address] [address] PCP - General Internal Medicine 01/09/24 documented as of this encounter
--- OUTSIDE RECORDS SUMMARY | 2024-11-07 07:05 | XMS_ITS | Encounter Summary ---
Author Organization [facility] Address [address] [place] [address] Care Team Providers Care Payroll Services Analyst Name Role Phone Qian Mathur MD Primary Care Provider [phone] Reason for Visit * Consult & Treatment (Routine) - Closed Specialty Diagnoses / Procedures Referred By Contac t Referred To Contact Cardiology Diagnoses Paroxysmal atrial fibrillation (CMD) Procedures ECHOCARDIOGRAM STRESS TEST W/ W/O IMAGING AGENT Cm Melton MD [address] [address] Referral ID Status Reason Start Date Expiration Date Visits Re quested Visits Authorized [id number] Closed 03/20/2023 09/17/2024 1 1 Encounter Details Date Type Department Care Team (Late st Contact Info) Description 05/13/2023 3:00 PM CDT Ancillary Procedure [facility] [address] [place] [address] Cm Melton MD [address] [address] Paroxysmal atrial fibrillation (CMD) Social [...] st Contact Info) Description 11/09/2024 12:15 PM CLIENT SERVICES REPRESENTATIVE Office Visit [facility] [address] [place] [address] Cm Melton MD [address] [address] documented as of this encounter Procedures Procedure Name Priority Date/Time Associated Diagnosis Comments ECHOCARDIOGRAM STRESS TEST W/CONTINUOUS EKG Routine 05/13/2023 4:39 PM CDT Paroxysmal atrial fibrillation (CMD) documented in this encounter Results * ECHOCARDIOGRAM STRESS TEST W/CONTINUOUS EKG (05/13/2023 4:39 PM CDT) Predicted HR Max 156 BPM [facility] Impressions [facility] - 05/14/2023 8:50 AM CDT *[facility]* [address] [place] [address] 2, [address] [place] [address] Stress Echocardiogram Patient: Tonya Costello ?Study Date/Time: ?May 13 2023 3:05PM ?FIN#: ? [id number] : ? 1960 ? Ht/Wt: ?167.6cm 68.5kg Age: ? 62 ? BSA/BMI: ?1.79m^2 24.4kg/m^2 Gender: ??F ?Baseline BP: ?130 / 78 Ordering Physician: ?? Cm Melton Referring Physician: ??Cm Melton Steven Primary Physician: ?Qian Mathur MD Performing Physician: Gerald Arriaga MD Diagnostic Physician: Gerald Arriaga MD Calender Feeder: ?BELEN Calderon Stress Parimutuel Cashier: ?? Yane Chaves MA INDICATIONS: ?? Atrial [...] experienced dyspnea during ?? stress. STUDY DATA: ??[place] There is no prior study available for [...] peak heart rate and blood pressure was 14269zu Hg/min. The patient experienced dyspnea during stress. [...] Procedure Note Gerald Arriaga MD - 05/14/2023 *[facility]* [address] [place] [address], [address] [place] [address] Stress Echocardiogram Patient: Tonya Costello Study Date/Time: May 13 2023 3:05PM [facility]#: [id number] : 1960 Ht/Wt: 167.6cm 68.5kg Age: 62 BSA/BMI: 1.79m^2 24.4kg/m^2 Gender: F Baseline BP: 130 / 78 Ordering Physician: Cm Melton Referring Physician: Cm Melton Steven Primary Physician: Qian Mathur MD Performing Physician: Gerald Arriaga MD Diagnostic Physician: Gerald Arriaga MD Calender Feeder: BELEN Calderon Stress Parimutuel Cashier: Yane Chaves MA INDICATIONS: Atrial fibrillation. STUDY [...] the peakheart rate and blood pressure was 11190ry Hg/min. The patient experienceddyspnea during stress. Functional [...] 08:50 Cm Melton MD CV ECHO ORDERABLES [facility] documented in this encounter Visit Diagnoses Diagnosis Paroxysmal atrial fibrillation (CMD) Atrial fibrillation Palpitations- Primary Paroxysmal atrial fibrillation (CMD) Atrial fibrillation S/P ablation of atrial fibrillation Other postprocedural status PVCs (premature ventricular contractions) Other premature beats detention current use of antiarrhythmic drug director long term care current use of anticoagulant Encounter for long-term (current) use of anticoagulants STAR (obstructive sleep apnea) Obstructive sleep apnea (adult) (pediatric) documented in this encounter Care Teams Payroll Services Analyst Relationship Specialty Start Date End Date Qian Mathur MD [address] [address] PCP - General Internal Medicine 12/09/22 01/08/24 documented as of this encounter
--- OUTSIDE RECORDS SUMMARY | 2024-11-07 07:05 | XMS_ITS | Encounter Summary ---
Author Organization [facility] Address [address] [place] [address] Care Team Providers Care Scalping Machine Operator Name Role Phone Sona Saenz MD Primary Care Provider [phone] Encounter Details Date Type Department Care Team (Latest Contact Info) Description 06/05/2024 Travel Social History Tobacco Use Types Packs/Day Years Used Date Smoking Tobacco: Former Cigarettes Smokeless Tobacco: Never Alcohol Use Standard Drinks/Week Comments Yes 2 (1 standard drink = 0.6 oz pur e alcohol) Utilities Answer Date Recorded In the past 12 months has e electric, gas, oil, or water [employer] threatened to shut off services in your home? No 06/06/2024 PHQ-2 Answer Date Recorded Initial depression screening score: 0 06/06/2024 Social Connections Answer Date Recorded How often do you see or talk to people that you care about and feel close to? (For example: talking to friends on the phone, visiting friends or family, going to baptism or club meetings) 5 or more times [...] st Contact Info) Description 11/09/2024 12:15 PM FUNERAL PROFESSIONAL Office Visit [facility] [place] [address] [place] [address] [facility] [address] [place] [phone] Cm Melton MD [address] [address] documented as of this encounter Visit Diagnoses Not on filedocumented in this encounter Care Teams Scalping Machine Operator Relationship Specialty Start Date End Date Sona Saenz MD [address] [place] [address] PCP - General Internal Medicine 01/09/24 documented as of this encounter
--- OUTSIDE RECORDS SUMMARY | 2024-11-07 07:05 | XMS_ITS | Encounter Summary ---
Author Organization [facility] Address [address] [place] [address] Care Team Providers Care Care Worker Name Role Phone Sona Saenz MD Primary Care Provider [phone] Encounter Details Date Type Department Care Team ([facility] st Contact Info) Description 06/06/2024 Orders Only [facility] [place] [address] [place] [address] Cm Melton MD [address] [address] Social History Tobacco Use Types [...] phone, visiting friends or family, going to buddhism or club meetings) 5 or more times [...] Dispensed Refills Start Date End Da te propafenone (RYTHMOL SR) 225 MG 12 hr capsule Take 1 capsule by mouth in the morning and 1 capsule in the evening. 180 capsule 3 06/06/2024 apixaBAN (Eliquis) 5 MG Tab Take 1 tablet by mouth every 12 hours. 180 tablet 3 06/06/2024 06/08/2024 documented in this encounter Plan of Treatment Upcoming Encounters Date Type Department Care Team (Late st Contact Info) Description 11/09/2024 12:15 PM RACK CARRIER Office Visit [facility] [place] [address] [place] [address] [facility] [address] [place] [address] Cm Melton MD [address] [address] documented as of this encounter Visit Diagnoses Not on filedocumented in this encounter Care Teams Care Worker Relationship Specialty Start Date End Date Sona Saenz MD [address] [place] [address] PCP - General Internal Medicine 01/09/24 documented as of this encounter
--- OUTSIDE RECORDS SUMMARY | 2024-11-07 07:05 | XMS_ITS | Encounter Summary ---
Author Organization [facility] Address [address] [place] [address] Care Team Providers Care Power Brake Rebuilder Name Role Phone Unavailable Primary Care Provider Unavailabl e Encounter Details Date Type Department Care Team (Late st Contact Info) Description 12/05/2015 12:32 AM RESEARCH ANIMAL FACILITY SUPERVISOR [facility] Titus Begum MD [address] [address] Discharge Disposition: Home or Self Care [...] documented in this encounter H&P Notes * ProviderAndi Historical Conversion - 12/05/2015 12:00 AM RESEARCH ANIMAL FACILITY SUPERVISOR CHECK ONBASE FOR SCAN documented in this encounter Miscellaneous Notes * Op Note - Titus Vieyra MD - 12/05/2015 11:59 AM CST Patient: TIMOTEO COSTELLO Age: 54 years Sex: FEMALE : 56 Associated Diagnoses: None Author: TITUS GAUTHIER [facility] ENDOSCOPY OPERATIVE REPORT Patient Name: Timoteo Costello [...] were reviewed. Informed consent was obtained. The Mobile Armor video colonoscope was inserted into the rectum [...] prior to the procedure) The patient and regional dedicated truck driver were informed of the endoscopic findings and was also given a copy of findings, postoperative instructions, and postoperative precautions. Titus Vieyra MD [facility] Electronically Signed On 12/05/2015 11:59 AM NAVJOT-TITUS DEVI ARCH ANIMAL FACILITY SUPERVISOR documented in this encounter Plan of Treatment Upcoming Encounters Date Type Department Care Team (Late st Contact Info) Description 11/09/2024 12:15 PM RESEARCH ANIMAL FACILITY SUPERVISOR Office Visit [facility] [address] [place] [address] Cm Melton MD [facility] [address] [address] documented as of this encounter Procedures Procedure Name Priority Date/Time Associated Diagnosis Comments SURGICAL PATHOLOGY Routine 12/05/2015 12 :52 PM RESEARCH ANIMAL FACILITY SUPERVISOR documented in this encounter Results * Surgical Pathology (12/05/2015 12:52 PM RESEARCH ANIMAL FACILITY SUPERVISOR) 12/05/2015 12:5 2 PM RESEARCH ANIMAL FACILITY SUPERVISOR 12/05/2015 12:52 PM RESEARCH ANIMAL FACILITY SUPERVISOR Narrative HISTORICAL DATA MIGRATION - 12/05/2015 12:52 PM RESEARCH ANIMAL FACILITY SUPERVISOR Name: TIMOTEO COSTELLOBharath ? /Age:2 1960 (Age: 54) ? Sex:F ?Surgical Pathology Report Client: [facility] Submitting Physician: Titus Vieyra MD Date Specimen Collected: 12/05/15 ? Date Specimen Received: ??12/05/15 Date Reported: ? 12/06/2015 09:52 ?? Location: ? [facility] Pathologic Diagnosis : A. Descending colon polyp: - ??Fragments of tubular adenoma. - ??No high-grade dysplasia seen. TC-1 Titus Ryder MD Electronic Signature (WEW) 12/06/2015 09:52 Clinical Information: History colon polyps, colon polyp diverticulosis Specimen(s) Submitted: Descending colon polyp forceps biopsy cold Gross Description: A: The specimen is received in formalin labeled descending colon polyp biopsy and consists of two pieces of pink tissue ranging from 0.2-0.1 cm and measuring 0.2 cm in aggregate. ??Sections submitted: ? A1: ??entire specimen AXK 12/05/2015 01:20 PM Microscopic Description: The attending pathologist whose signature appears on this report has reviewed the diagnostic studies and has edited the gross and/or microscopic portion of the report rendering the final diagnosis. The immunohistochemical, FISH, or KESHA reagents (if any) utilized in this test were developed and their performance characteristics determined by [facility]. ??Some of the immunohistochemical reagents have not been cleared or approved by the U.S. Food and Drug Administration. The FDA has determined that such clearance or approval is not necessary. ??This test is used for clinical purposes. ??It should not be regarded as investigational or for research. ??This laboratory is certified under the Clinical Laboratory Improvement Amendments of 1988 (CLIA) as qualified to perform high complexity clinical laboratory testing. ??The appropriate controls were run and show appropriate reactivity. Since FISH and/or immunohistochemistry for estrogen receptor, progesterone receptor, and HER2/terrie have not been validated on decalcified tissue, such results should be interpreted with caution given the likelihood of false negativity. Fee Codes: A: [id number], [id number] Performing Lab Location (Unless otherwise specified): [address] [address] Titus Ryder MD PATHOLOGY/CYTOLOGY O [facility] HISTORICAL DATA MIGRATION documented in this encounter Visit Diagnoses Not on filedocumented in this encounter
--- OUTSIDE RECORDS SUMMARY | 2024-11-07 07:05 | XMS_ITS | Encounter Summary ---
Author Organization [facility] Address [address] [place] [address] Care Team Providers Care Education And Training Coordinator Name Role Phone Qian Mathur MD Primary Care Provider [phone] Reason for Visit * Radiology Services (Routine) - Closed Specialty Diagnoses / Procedures Referred By Contac t Referred To Contact Radiology-Diagnostic Radiology / Radiology Diagnoses Osteoporosis screening Procedures DEXA SCAN AXIAL SKELETON DEXA BONE DENSITY AXIAL SKELETON Marissa Herrera MD [address] [facility] [address] Referral ID Status Reason Start Date Expiration Date Visits Re quested Visits Authorized [id number] Closed 11/21/2022 05/21/2024 1 1 Encounter Details Date Type Department Care Team (Latest Contact Info) Description 12/10/2023 10:25 AM PARTS CLERK - 12/10/2023 11:59 PM [facility] Hospital Encounter [facility] IMAGING RADIOLOGY [address] [place] [address] Marissa Herrera MD [address] [facility], [address] [place] [phone] Discharge Disposition: Home or Self Care Social [...] st Contact Info) Description 11/09/2024 12:15 PM PARTS CLERK Office Visit [facility] [place] [phone] [place] [phone] Cm Melton MD [address] [address] documented as of this encounter Procedures Procedure Name Priority Date/Time Associated Diagnosis Comments BD DEXA AXIAL SKELETON Routine 12/10/2023 10:40 AM PARTS CLERK Osteoporosis screening documented in this encounter Results * DEXA SCAN AXIAL SKELETON (12/10/2023 10:40 AM PARTS CLERK) Anatomical Region Laterality Modality Bone Density Dual-energy X-ra y Absorptiometry 12/10/2023 11:1 4 AM PARTS CLERK Impressions 12/10/2023 11:15 AM PARTS CLERK Bone mineral density is in the osteopenia [...] Signed on: 12/10/2023 11:15 AM Workstation ID: [id number] Narrative 12/10/2023 11:15 AM PARTS CLERK EXAM: BD DEXA AXIAL SKELETON CLINICAL INDICATION: [...] in BMD with a 95% confidence is ??0.655758 gm/cm2 at the total hip, 0.843729 gm/cm2 at the femoral neck and 0.923322 gm/cm2 at the 1/3 radius. Procedure Note [...] change in BMD with a 95%confidence is 0.089671 gm/cm2 at the total hip, 0.366779 gm/cm2 at the femoralneck and 0.518722 gm/cm2 at the 1/3 radius. IMPRESSION: Bone mineral density is in the osteopenia category. See above. Fracture risk estimated using the FRAX calculator : The [id number] risk for a major osteoporotic fracture is [...] Signed on: 12/10/2023 11:15 AM Workstation ID: [id number] Marissa Herrera MD IMG DXA PROCEDURES documented in this encounter Visit Diagnoses Not on filedocumented in this encounter Care Teams Education And Training Coordinator Relationship Specialty Start Date End Date Qian Mathur MD [address] [address] PCP - General Internal Medicine 12/09/22 01/08/24 documented as of this encounter
--- OUTSIDE RECORDS SUMMARY | 2024-11-07 07:05 | XMS_ITS | Encounter Summary ---
Author Organization [facility] Address [address] [place] [address] Care Team Providers Care Banquet Line Cook Name Role Phone Qian Mathur MD Primary Care Provider [phone] Reason for Referral * Radiology Services (Routine) - Closed Specialty Diagnoses / Procedures Referred By Contac t Referred To Contact Radiology-Diagnostic Radiology / Radiology Diagnoses Paroxysmal atrial fibrillation (CMD) Procedures CT HEART CALCIUM SCORING Cm Melton MD [address] [address] Referral ID Status Reason Start Date Expiration Date Visits Re quested Visits Authorized [id number] Closed 03/20/2023 09/20/2024 1 1 Reason for Visit * Radiology Services (Routine) - Closed Specialty Diagnoses / Procedures Referred By Contac t Referred To Contact Radiology-Diagnostic Radiology / Radiology Diagnoses Paroxysmal atrial fibrillation (CMD) Procedures CT HEART CALCIUM SCORING Cm Melton MD [address] [address] Referral ID Status Reason Start Date Expiration Date Visits Re quested Visits Authorized [id number] Closed 03/20/2023 09/20/2024 1 1 Encounter Details Date Type Department Care Team (Late st Contact Info) Description 05/20/2023 2:45 PM CDT - 05/20/2023 11:59 PM CDT Hospital Encounter [facility] IMAGING CT SCAN [address] [place] [address] Cm Melton MD [address] [phone] Discharge Disposition: Home or Self Care Social [...] daily. 90 tablet 3 04/18/2023 06/26/2023 documented as of this encounter Discharge Disposition Disposition Code Departure Means Destination Home or Self Care documented in this encounter Plan of Treatment Upcoming Encounters Date Type Department Care Team (Late st Contact Info) Description 11/09/2024 12:15 PM FLIGHT SUPERINTENDENT Office Visit [facility] [address] [place] [phone] Cm Melton MD [address] [phone] documented as of this encounter Procedures Procedure Name Priority Date/Time Associated Diagnosis Comments CT HEART CALCIUM SCORING Routine 05/20/2023 2:55 PM CDT Paroxysmal atrial fibrillation (CMD) documented in this encounter Results * CT HEART CALCIUM SCORING (05/20/2023 2:55 PM CDT) Anatomical Region Laterality Modality Chest Computed Tomogra phy 05/20/2023 3:43 PM CDT Impressions 05/20/2023 3:44 PM CDT Mild coronary artery plaque is identified (score of 1-99). ??Suggest mildly increased risk for coronary artery disease. Electronically Signed by: MELISSA BURT M.D. Signed on: 05/20/2023 3:44 PM Workstation ID: [id number] Narrative 05/20/2023 3:[address] CORONARY [...] calcium score exam was performed on a GE 64-channel computed tomography scanner with prospective EKG [...] calcium score exam was performed on a Specialized Tech 64-channel computed tomography scanner with prospective EKG [...] Signed on: 05/20/2023 3:44 PM Workstation ID: [id number] Cm Melton MD IMG CT PROCEDURES documented in this encounter Visit Diagnoses Diagnosis Paroxysmal atrial fibrillation (CMD) Atrial fibrillation Palpitations- Primary Paroxysmal atrial fibrillation (CMD) Atrial fibrillation S/P ablation of atrial fibrillation Other postprocedural status PVCs (premature ventricular contractions) Other premature beats buttermaker continuous churn current use of antiarrhythmic drug buttermaker continuous churn current use of anticoagulant Encounter for long-term (current) use of anticoagulants STAR (obstructive sleep apnea) Obstructive sleep apnea (adult) (pediatric) documented in this encounter Care Teams Banquet Line Cook Relationship Specialty Start Date End Date Qian Mathur MD [address] [address] PCP - General Internal Medicine 12/09/22 01/08/24 documented as of this encounter
--- OUTSIDE RECORDS SUMMARY | 2024-11-07 07:05 | XMS_ITS | Encounter Summary ---
Author Organization [facility] Address [address] [place] [address] Care Team Providers Care Phys Therapist Name Role Phone Sona Saenz MD Primary Care Provider Reason for Visit * Reason Comments [facility] 1 Encounter Details Date Type Department Care Team ([facility] st Contact Info) Description 06/08/2024 Telephone [facility] [address] [place] [address] Provider, Population Health Support [facility] Outreach 1 Social History Tobacco Use Types Packs/Day Years [...] st Contact Info) Description 11/09/2024 12:15 PM BALL HOLDER Office Visit [facility] [place] [address] [place] [address] [facility] [address] [place] [address] Cm Melton MD [address] [address] documented as of this encounter Visit Diagnoses Not on filedocumented in this encounter Care Teams Phys Therapist Relationship Specialty Start Date End Date Sona Saenz MD [address] [facility] [address] [place] [address] PCP - General Internal Medicine 01/09/24 documented as of this encounter
--- OUTSIDE RECORDS SUMMARY | 2024-11-07 07:08 | XMS_ITS | Referral Summary ---
Author Organization [employer] [facility] Address [address] [place] [address] Care Team Providers Care Cold Storage Supervisor Name Role Phone Jeison Orozco MD Primary Care Provider Unav ailable Allergies Active Allergy Reactions Criticality Noted Date Comments Penicillins RASH Medium 11/11/2007 Medications Nutritional Supplements (JUICE PLUS FIBRE OR) Take by mouth. Active Cholecalciferol (VITAMIN D) 1000 units Oral Tab Take by mouth. Active TURMERIC OR Take by mouth. Active triamcinolone acetonide 0.1 % External Cream Apply to rash of back twice daily prn itch. 30 g 04/14/2020 Active zolpidem 5 MG Oral Tab Take 1 tablet (5 mg total) by mouth daily. 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 Seborrheic dermatitis, unspecified 03/20/2011 12/28/2018 Spongiotic dermatitis 03/20/20112018 Contact dermatitis and other eczema, due to unspecified cause 02/25/2011 12/28/2018 Neoplasm of uncertain behavior of skin 02/25/2011 12/28/2018 Inflamed seborrheic keratosis 02/25/2011 12/28/2018 Immunizations Name Administration Dates Next Due FLUZONE 6 months and older P FS 0.5 ml (36814) 08/09/2021,08/04/2020 HEP A/HEP B Combined 10/15/2011,03/29/2011,02/25 TDAP 02/25/2011 Social History Tobacco Use Types Packs/Day Years Used Date Smoking Tobacco: Former Cigarettes Smokeless Tobacco: Never Tobacco Cessation:Counseling Given: Yes Comments:quit 26 yrs ago Alcohol Use Standard Drinks/Week Comments Yes 0 (1 standard drink = 0.6 oz pur e alcohol) socially, 7 drinks/week PHQ-2 Answer Date Recorded PHQ-2 SCORE 0 12/17/2021 Comments No Sex and Gender Information Value Date Recorded Sex Assigned at Not on file Legal Sex Female 4:25 PM THREAD INSPECTOR Gender Identity Female 07/03/2021 5:51 PM CDT Sexual Orientation Not on file Last Filed Vital Signs Vital Sign Reading Time Taken Comments Blood Pressure 120/78 12/17/2021 10:12 AM THREAD INSPECTOR Pulse 72 12/17/2021 10:12 AM THREAD INSPECTOR Temperature 36.3 ??C (97.4 ??F) 12/17/2021 10:[address] Respiratory Rate 16 09/13/2018 1:11 PM THREAD INSPECTOR Oxygen Saturation 98% 12/17/2021 10:12 AM THREAD INSPECTOR Inhaled Oxygen Concentration - - Weight 68 kg (150 lb) 12/17/2021 10:12 AM THREAD INSPECTOR Height 167.6 cm (5' 6 ) 12/17/2021 10:12 AM THREAD INSPECTOR Body Mass Index 24.21 12/17/2021 10:12 AM THREAD INSPECTOR Functional Status * Hearing Problems? Answer Date of Assessment Author No 12/17/2021 10:00 AM Cathy Barry CMA * Vision Problems? Answer Date of Assessment Author No 12/17/2021 10:00 AM THREAD INSPECTOR Cathy Mckenzie CMA * Difficulty walking? Answer Date of Assessment Author No 12/17/2021 10:00 AM Cathy Barry CMA * Difficulty dressing or bathing? Answer Date of Assessment Author No 12/17/2021 10:00 AM Cathy Barry CMA * Problems with daily activities? Answer Date of Assessment Author No 12/17/2021 10:00 AM Cathy Barry CMA Mental Status * Memory Problems? Answer Entry Date Author No 12/17/2021 10:00 AM THREAD INSPECTOR Cathy Mckenzie, MIKA Plan of Treatment Not on file Procedures Procedure Name Priority Date/Time Associated Diagnosis Comments YASMIN SCREEN MAMMOGRAM, DIGITAL (GHH=[id number]) Routine 01/15/2019 8:02 AM CDT Encounter for screening mammogram for malignant neoplasm of breast COLONOSCOPY Routine 05/04/2015 7:05 AM CDT Personal history of colonic polyps from Last 3 Months or Most Recently Relevant to Health Maintenance Results * YASMIN SCREEN MAMMOGRAM, DIGITAL (HCH=[id number]) (01/15/2019 8:02 AM CDT) Anatomical Region Laterality Modality Breast Bilateral Mammography 01/19/2019 8:52 AM CDT Narrative 01/19/2019 8:53 AM CDT DATE OF SERVICE: 01.15.2019 BILATERAL SCREENING MAMMOGRAM WITH CAD WITH TOMOSYNTHESIS CLINICAL INDICATION: ??Screening mammogram on a 58 years old woman. COMPARISON: ??12/18/2016, 11/17/2015, 11/15/2014, 10/25/2013 TECHNIQUE: ?? Bilateral screening digital mammographic views with tomosynthesis. Images were checked with the [email or web address] CAD system. FINDINGS: ?The breasts demonstrate scattered [...] This was interpreted by Yola Espinosa M.D. us Jeison Orozco MD RIS MAMMO Final Resul t from Last 3 Months or Most Recently Relevant to Health Maintenance Administered Medications Insurance [facility] FUNDS [facility] [employer] FUNDS [facility] PPO [facility] PPO Care Teams Cold Storage Supervisor Relationship Specialty Start Date End Date Jeison Orozco MD PCP - General 12/25/01
--- OUTSIDE RECORDS SUMMARY | 2024-11-07 07:08 | XMS_ITS | Encounter Summary ---
Author Organization [employer] [facility] Address [address] [place] [address] Care Team Providers Care Claims Sorter Name Role Phone Jeison Orozco MD Primary Care Provider Unav ailable Reason for Referral * Procedure (Routine) - Closed Specialty Diagnoses / Procedures Referred By Delmi zee Referred To Contact CARDIOLOGY Diagnoses PAF (paroxysmal atrial fibrillation) (HCC) Procedures CATH EP Xu Rosenberg MD Phone: tel: fax: Referral ID Status Reason Start Date Expiration Date Visits Re quested Visits Authorized [id number] Closed 04/08/2014 04/08/2015 1 1 Reason for Visit * [facility] - [facility]osed Specialty Diagnoses / Procedures Referred By Delmi zee Referred To Contact Diagnoses PAF (paroxysmal atrial fibrillation) (HCC) Status post cryoablation of arrhythmia Procedures CATH [facility] 2NE-A [address] [place] [address] Phone: tel: Referral ID Status Reason Start Date Expiration Date Visits Re quested Visits Authorized [id number] Closed 1 1 Encounter Details Date Type Department Care Team (Latest Contact Info) Description 04/25/2014 7:06 AM CDT - 04/26/2014 1:30 PM CDT Hospital Encounter [facility] [address]NEA [address] [place], [place] [id number] Xu Rosenberg MD [address] [place] [address], [place] [address] PAF (paroxysmal atrial fibrillation) ([facility]) Discharge Disposition: Home or Self Care Social History Tobacco Use Types Packs/Day Years Used Date Smoking Tobacco: Former Cigarettes Smokeless Tobacco: Never Comments:quit 26 yrs ago Alcohol Use Standard Drinks/Week Comments Yes 0 (1 standard drink = 0.6 oz pur e alcohol) socially, 7 drinks/week Comments No Sex and Gender Information Value Date Recorded Sex Assigned at Not on file Legal Sex Female 4:25 PM [employer] Gender Identity Female 07/03/2021 5:51 PM CDT Sexual Orientation Not on file documented as of this encounter Last Filed Vital Signs Vital Sign Reading Time Taken Comments Blood Pressure 105/56 04/26/2014 9:10 AM CDT Pulse 77 04/26/2014 9:10 AM CDT Temperature 37.4 ??C (99.3 ??F) 04/26/2014 9:10 AM CD T Respiratory Rate 20 04/26/2014 9:10 AM CDT Oxygen Saturation 95% 04/26/2014 5:23 AM CDT Inhaled Oxygen Concentration - - Weight 67.6 kg (149 lb) 04/22/2014 10:01 AM CDT Height 167.6 cm (5' 6 ) 04/22/2014 10:01 AM CDT Body Mass Index 24.05 04/22/2014 10:01 AM CDT documented in this encounter Functional Status * Hearing Problems? Answer Date of Assessment Author No 04/26/2014 12:18 PM CDT Angella Hollingsworth RN * Vision Problems? Answer Date of Assessment Author No 04/26/2014 12:18 PM CDT Angella Hollingsworth RN * Difficulty walking? Answer Date of Assessment Author No 04/26/2014 12:18 PM CDT Angella Hollingsworth RN * Difficulty dressing or bathing? Answer Date of Assessment Author No 04/26/2014 12:18 PM CDT Angella Hollingsworth RN * Problems with daily activities? Answer Date of Assessment Author No 04/26/2014 12:18 PM CDT Angella Hollingsworth RN documented as of this encounter Mental Status * Memory Problems? Answer Entry Date Author No 04/26/2014 12:18 PM CDT Angella Hollingsworth RN documented in this encounter Discharge Summaries * Xu Rosenberg MD - 04/26/2014 11:44 AM CDT Admit dX: AF Discharge dx: AF Findings: AF ablation Condition: Stable Dispo: Home F/u: 1 month with me in EPS clinic documented in this encounter Medications at Time of Discharge apixaban (ELIQUIS) 5 MG Oral Tab Take 1 tablet by mouth 2 (two) times daily. 60 tablet 0 04/26/2014 05/26/2014 Acidophilus/Pecti n (PROBIOTIC) Oral Cap Take 1 capsule by mouth daily. 09/30/2014 BIOTIN OR Take 3 tablets by mouth daily. 05/31/2015 Flecainide Acetate (TAMBOCOR) 100 MG Oral Tab Take 1 tablet by mouth 2 (two) times daily. 60 tablet 6 03/16/2014 05/03/2014 Diltiazem HCl ER Coated Beads (CARDIZEM CD) 120 MG Oral Capsule SR 24 Hr Take 1 capsule by mouth daily. 90 capsule 3 12/23/2013 12/01/2014 Estradiol (VAGIFEM) 10 MCG Vaginal TabIndications:AF (atrial fibrillation) (HCC) Place vaginally. Use twice weekly 09/13/2018 aspirin 81 MG Oral Tab Take 81 mg by mouth daily. 05/04/2015 Ibuprofen 200 MG Oral TabIndications:Fa tigue,Back pain,Cough,Histor y of foreign travel,Other, multiple, and unspecified sites, insect bite, nonvenomous, without mention of infection(919.4) 1 TABLET EVERY 4 TO 6 HOURS NEEDED 08/02/2017 ZOLPIDEM TARTRATE 5 MG OR TABS 1 TABLET AT BEDTIME 10 Tab 0 02/25/2011 05/05/2018 documented as of this encounter Progress Notes * Angella Hollingsworth RN - 04/26/2014 12:21 PM CDT PIV and tele dc'd per discharge home order. Discharge instructions given and reviewed with pt including post ablation home care, medications, fu appointments, and when to call provider. Pt transported via wheelchair to front entrance to be taken home by . * Xu Rosenberg MD - 04/26/2014 11:43 AM CDT S/p cryo yesterday, no events, some PRITCHARD this am, no AF on monitor Denies chest pain, shortness of breath, palpitations, lightheadedness, syncope, orthopnea, paroxysmal nocturnal dyspnea, or edema. Medications: No current outpatient prescriptions on file. Physical: BP 105/56 Pulse 77 Temp(Src) 99.3 ??F (37.4 ??C) (Oral) Resp 20 Ht 5' 6 (1.676 m) Wt 149lb (67.586 kg) BMI 24.06 kg/m2 SpO2 95% GENERAL: well developed, well nourished, in no apparent distress EYES: sclera anicteric HEENT: normocephalic NECK: no JVD, no carotid bruits, no thyromegaly RESPIRATORY: clear to auscultation CARDIOVASCULAR: S1, S2 normal, RRR; no S3, no S4; no click; no murmur ABDOMEN: normal active BS, soft, nondistended; nontender EXTREMITIES: no cyanosis, clubbing or edema, peripheral pulses intact Groins - CDI no hematoma Impression: 1. S/p cryo Plan: ?? S/p cryo - cont all meds and eliquis, f/u 1 month. All questions addressed, ok to dc home * Angella Hollingsworth RN - 04/26/2014 10:26 AM CDT Assumed pt care at 0730. Pt alert and oriented x 3. Up ad renee. Bilateral groin sites CDI. 2+ pedal pulses. NSR on monitor. Pt has c/o a PRITCHARD, tylenol given. Breath sounds clr, on room air. Pt encouraged to ambulate in halls. * Angella Hollingsworth RN - 04/25/2014 4:15 PM CDT Bilateral venous sheaths pulled at 1615. Manual pressure applied x 15 minutes, hemostasis achieved.Pt tolerated well. RN called back into room 10 minutes later, right groin oozing, manual pressure applied x 5 minutes.Hemostasis achieved. * Angella Hollingsworth RN - 04/25/2014 2:33 PM CDT Pt unable to void via bedpan. States her bladder feels full. Miller catheter placed using sterile technique without difficulty, 400 mL clear, yellow urine. Pt tolerated well. 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 Pt drowsy but answers questions appropriately. Nausea improved after zofran and pt tolerating ice chips. Pt c/o chest pressure same as during procedure. NSR on monitor. BP stable. 2+ bilateral pedal pulses. Venous sheath x 2 to left fem and venous sheath x 1 on right. Last ACT 284. Will dc sheaths once below 180. Pt understands she is on bedrest and must lay flat. Pts Don at bedside. Will monitor. documented in this encounter H&P Notes * Xu Rosenberg MD - 04/25/2014 11:19 AM CDT 53 year old female with no sig [...] oriented, normal affect. Skin: Warm and dry. Data: ECG: (personally reviewed): 06/08 - NSR 57 Echo: 05/08 - normal, EF 57 Stress: 08/08 - no ischemia, EF 57 Impression: 1. sx'atic pAF CHADSVASC=1 on asa Plan: AF - discussed rate rhythm contrrol ac and ablation Patient would like to pursue ablation strategy, will do today documented in this encounter Procedure Notes * Xu Rosenberg MD - 04/25/2014 11:22 AM CDTAssociated Order(s): CATH EP Electrophysiology Study with Radiofrequency Ablation History: Tonya Costello is a 53 year old F with paroxysmal atrial fibrillation. The risks and benefits of the procedure (including, but not limited to, hematoma, vascular damage, pneumothorax, tamponade, need for a pacemaker, myocardial infarction, stroke, and ) were discussed. The patient understands and agrees to proceed. Procedure: The patient was brought to the electrophysiology study in the fasting and nonsedated state. The left and right groins were prepped and draped in the usual sterile fashion. Fentanyl and Versed were administered in divided doses under continuous monitoring of oxygenation, blood pressure, and heart rate. 1% lidocaine was used for skin anesthesia. An 14 Fr sheath was placed in the right femoral vein and a 10Fr and a 7 Fr sheath were placed in the left femoral vein, all by modified Seldinger technique. Catheters were placed in the appropriate positions under fluoroscopic guidance. Procedures performed: Comprehensive EP study Pacing and recording of the LA from the CS 3D mapping of tachycardia with St Aren NavX Radiofrequency ablation Intracardiac echo Transseptal access to the LA After programmed stimulation and ablation, the catheters and sheaths were removed and hemostasis was achieved with manual compression. Results: Baseline intervals: SCL: 1090, CA: 180, QRS: 88, QT: 410, AH: 92, HV: 50 AVBCL: 420. Block was in the AV node AVNERP: 290 at 500. Block was in the AV node VABCL: < 450 Mapping and Ablation: Transseptal access across the fossa ovalis was obtained using an SL1 sheath with a Zientia needle under fluoroscopic and intracardiac guidance. Once access was obtained with the needle, the sheath/dilator apparatus was advanced to the LA. Heparin was administered intravenously in doses to maintain an ACT between 300- 350s. Then the LUPV was cannulated with the SL1 wire and the 14F and SL1 sheath were removed and the cryosheath, balloon and wire were advanced into the LA. Sequential occluding venograms were obtained in the LUPV, RUPV, RLPV and then RUPV and then cryoballon energy was delivered in each vein for at least 180 seconds with obliteration of PV signals. Withride sided ablation the CS catheter was placed in the subclavian vein and the phrenic nerve was paced during ablation to confirm lack of phrenic nerve damage. With energy delivery PV signals were clearly seen to obliterate in the LUPV, LLPV and RUPV After a 20 minute waiting period the PV's were re-interrogated and confirmed to have entrance block. The equipment was pulled out of the left atrium and long sheaths were exchanged for short sheaths,to be pulled once the ACT < 180. The patient awoke neurologically and hemodynamically intact. ICE prior and after the case confirmed lack of pericardial effusion. Dr Layton was present and assisted for all critical portions of the procedure Conclusions: --Normal AV jamison function --Normal His Purkinje system function --Successful ablation of atrial fibrillation consisting of cryoballoon energy delivery in each veinwith documented entrance block in all veins despite a waiting period. Xu Rosenberg MD Clinical Cardiac Electrophysiology [facility] * Xu Rosenberg MD - 04/25/2014 11:20 AM CDTAssociated Order(s): CARD ECHO DIONTE Transesophageal Echocardiogram History: Tonya Costello is a 53 year old female with pAF here for DIONTE to look for LA clot. The risks and benefits of the procedure (including, but not limited to, airway/esophageal damage, respiratory failure, myocardial infarction, stroke, and ) were discussed. The patient understands and agrees to proceed. Procedure: The patient was admitted to the invasive lab holding unit in the fasting and nonsedated state. The oropharynx was anesthetized with topical benozcaine. Intravenous sedation was administered with divided doses of fentanyl and versed under continuous monitoring of oxygenation, blood pressure, and heart rate. The DIONTE probe was placed in the patient's oropharynx and easily advanced into the esophagus. Cardiac imaging including 2 dimensional, color flow, and pulse wave doppler were performed Findings: ?? The LA was mildly enlarged ?? There was no spontaneous echo contrast seen ?? The ENOCH was visualized in multiple views and there was no thrombus seen ?? PW doppler in the ENOCH revealed velocities of 30cm/sec ?? The RA was mildly enlarged ?? The LV had normal septal motion and EF was normal ?? The RV was normal ?? The MV had mild MR ?? The AV was trileaflet and had mild AI ?? The PV was normal ?? The TV had mild TR ?? The interatrial septum was aneuyrysmal and demonstrated a PFO ?? There was no pericardial effusion ?? The aortic root appeared normal ?? The thoracic aorta had minimal plaque Conclusions: ?? No intracardiac thrombus identified ?? PFO with aneurysmal IAS Xu Rosenberg MD Clinical Cardiac Electrophysiology [facility] documented in this encounter Miscellaneous Notes * Plan of Care - Bernie Griggs RN - 04/25/2014 10:00 PM CDT Patient a&ox3. SR on tele. Lungs clear. Denies any pain. Bilateral groin sites c/d/i. Heparin gtt to start @ 2215 per orders. Patient updated on poc, questions answered. Will continue to monitor. documented in this encounter Plan of Treatment Not on file documented as of this encounter Procedures Procedure Name Priority Date/Time Associated Diagnosis Comments TELEMETRY TRACING SCAN 04/28/2014 7:26 AM CDT POCT ISTAT ACTIVATED CLOTTING TIME Routine 04/25/2014 3:13 PM CDT POCT ISTAT ACTIVATED CLOTTING TIME Routine 04/25/2014 1:38 PM CDT CARD ECHO DIONTE ([id number]=[id number]) Routine 04/25/2014 12:38 PM CDT PAF (paroxysmal atrial fibrillation) (HCC) CATH EP Routine 04/25/2014 11:35 AM CDT PAF (paroxysmal atrial fibrillation) (HCC) POCT ISTAT ACTIVATED CLOTTING TIME Routine 04/25/2014 11:23 AM CDT POCT ISTAT ACTIVATED CLOTTING TIME Routine 04/25/2014 11:03 AM CDT POCT ISTAT ACTIVATED CLOTTING TIME Routine 04/25/2014 10:37 AM CDT POCT ISTAT ACTIVATED CLOTTING TIME Routine 04/25/2014 10:14 AM CDT documented in this encounter Results * TELEMETRY TRACING SCAN (04/28/2014 7:26 AM CDT) us SCAN DOCUMENTS Final Result * (ABNORMAL) Istat activated clotting time (04/25/2014 3:13 PM CDT) ISTAT ACTIVATED CLOTTING TIME 160(H) 74 - 137 SEC [facility] 04/25/2014 3:13 PM CDT 04/27/2014 7:24 AM CDT Xu Rosenberg MD POCT ORDERABLES - DEVICE Fi nal Result Performing Organization Address [facility] Co de Phone Number [facility] [address] [place] [phone] * (ABNORMAL) Istat activated clotting time (04/25/2014 1:38 PM CDT) [facility] ISTAT ACTIVATED CLOTTING TIME 201(H) 74 - 137 SEC [facility] 04/25/2014 1:38 PM CDT 04/27/2014 7:25 AM CDT Xu Rosenberg MD POCT ORDERABLES - DEVICE Fi nal Result Performing Organization Address [facility] de Phone Number [facility] [address] [place] [phone] * CATH EP (04/25/2014 11:35 AM CDT) Narrative [facility] - 04/25/2014 11:23 AM CDT Xu Rosenberg MD ? 04/25/2014 11:23 AM Electrophysiology Study with Radiofrequency Ablation History: Tonya Costello is a 53 year old F with paroxysmal atrial fibrillation. The risks and benefits of the procedure (including, but not limited to, hematoma, vascular damage, pneumothorax, tamponade, need for a pacemaker, myocardial infarction, stroke, and ) were discussed. The patient understands and agrees to proceed. Procedure: The patient was brought to the electrophysiology study in the fasting and nonsedated state. The left and right groins were prepped and draped in the usual sterile fashion. Fentanyl and Versed were administered in divided doses under continuous monitoring of oxygenation, blood pressure, and heart rate. 1% lidocaine was used for skin anesthesia. An 14 Fr sheath was placed in the right femoral vein and a 10Fr and a 7 Fr sheath were placed in the left femoral vein, all by modified Seldinger technique. Catheters were placed in the appropriate positions under fluoroscopic guidance. Procedures performed: Comprehensive EP study Pacing and recording of the LA from the CS 3D mapping of tachycardia with St Aren NavX Radiofrequency ablation Intracardiac echo Transseptal access to the LA After programmed stimulation and ablation, the catheters and sheaths were removed and hemostasis was achieved with manual compression. Results: Baseline intervals: SCL: 1090, CA: 180, QRS: 88, QT: 410, AH: 92, HV: 50 AVBCL: 420. Block was in the AV node AVNERP: 290 at 500. Block was in the AV node VABCL: < 450 Mapping and Ablation: Transseptal access across the fossa ovalis was obtained using an SL1 sheath with a Zientia needle under fluoroscopic and intracardiac guidance. ??Once access was obtained with the needle, the sheath/dilator apparatus was advanced to the LA. Heparin was administered intravenously in doses to maintain an ACT between 300-350s. Then the LUPV was cannulated with the SL1 wire and the 14F and SL1 sheath were removed and the cryosheath, balloon and wire were advanced into the LA. ?? Sequential occluding venograms were obtained in the LUPV, RUPV, RLPV and then RUPV and then cryoballon energy was delivered in each vein for at least 180 seconds with obliteration of PV signals. ??With ride sided ablation the CS catheter was placed in the subclavian vein and the phrenic nerve was paced during ablation to confirm lack of phrenic nerve damage. ??With energy delivery PV signals were clearly seen to obliterate in the LUPV, LLPV and RUPV After a 20 minute waiting period the PV's were re-interrogated and confirmed to have entrance block. ??The equipment was pulled out of the left atrium and long sheaths were exchanged for short sheaths, to be pulled once the ACT < 180. ??The patient awoke neurologically and hemodynamically intact. ICE prior and after the case confirmed lack of pericardial effusion. ??Dr Layton was present and assisted for all critical portions of the procedure Conclusions: --Normal AV jamison function --Normal His Purkinje system function --Successful ablation of atrial fibrillation consisting of cryoballoon energy delivery in each vein with documented entrance block in all veins despite a waiting period. Xu Rosenberg MD Clinical Cardiac Electrophysiology [facility] us Xu Rosenberg MD RIS CATH Final Resul t Performing Organization Address [facility] de Phone Number [facility] * (ABNORMAL) Istat activated clotting time (04/25/2014 11:23 AM CDT) ISTAT ACTIVATED CLOTTING TIME 283(H) 74 - 137 SEC [facility] 04/25/2014 11:2 3 AM CDT 04/25/2014 11:27 AM CDT Xu Rosenberg MD POCT ORDERABLES - DEVICE Fi nal Result Performing Organization Address [facility] de Phone Number [facility] [address] [place] [address] * (ABNORMAL) Istat activated clotting time (04/25/2014 11:03 AM CDT) ISTAT ACTIVATED CLOTTING TIME 288(H) 74 - 137 SEC [facility] 04/25/2014 11:0 3 AM CDT 04/25/2014 11:16 AM CDT Xu Rosenberg MD POCT ORDERABLES - DEVICE Fi nal Result Performing Organization Address [facility] de Phone Number [facility] [address] [place] [address] * (ABNORMAL) Istat activated clotting time (04/25/2014 10:37 AM CDT) ISTAT ACTIVATED CLOTTING TIME 298(H) 74 - 137 SEC [facility] 04/25/2014 10:3 7 AM CDT 04/25/2014 10:40 AM CDT Xu Rosenberg MD POCT ORDERABLES - DEVICE Fi nal Result Performing Organization Address [facility] de Phone Number [facility] [address] [place] [address] * (ABNORMAL) Istat activated clotting time (04/25/2014 10:14 AM CDT) ISTAT ACTIVATED CLOTTING TIME 247(H) 74 - 137 SEC [facility] 04/25/2014 10:1 4 AM CDT 04/25/2014 10:40 AM CDT us Xu Rosenberg MD POCT ORDERABLES - DEVICE Fi nal Result [facility] [address] [place] [address] documented in this encounter Visit Diagnoses Diagnosis PAF (paroxysmal atrial fibrillation) (HCC) Atrial fibrillation documented in this encounter Administered Medications Inactive Administered Medications - up to 3 most recent administrations Medication Order MAR Action Action Date Dose Rate Site 0.9% NaCl infusion at 20 mL/hr, Intravenous, Continuous, Starting on Fri04/25/14 at 0745, Pre-procedure (Imaging) New Bag 04/25/2014 7:45 AM CDT 20 mL/h r acetaminophen (TYLENOL) 325 MG tab Starting on Fri04/26/14 at 0749, For 1 dose, ANGELLA HOLLINGSWORTH: cabinet override Given 04/26/2014 7:53 AM CDT 650 mg acetaminophen (TYLENOL) 325 MG tab Starting on Fri04/26/14 at 1259, For 1 dose, ANGELLA HOLLINGSWORTH: cabinet override Given 04/26/2014 1:01 PM CDT 650 mg apixaban (ELIQUIS) tab TABS 5 mg 5 mg, Oral, 2 times daily, First dose on Fri04/26/14 at 0900 Given 04/26/2014 10:13 AM CDT 5 mg aspirin EC tab 81 mg 81 mg, Oral, Daily, First dose on Fri04/25/14 at 1130, Do not crush Given 04/25/2014 3:48 PM CDT 81 mg diltiazem (CARDIZEM CD) 24 hr cap 120 mg 120 mg, Oral, Daily, First dose on Fri04/25/14 at 1130 Given 04/25/2014 3:48 PM CDT 120 mg Flecainide Acetate (TAMBOCOR) tab 100 mg 100 mg, Oral, 2 times daily, First dose on Fri04/25/14 at 1130 Given 04/26/2014 10:13 AM CDT 100 mg Given 04/25/2014 10:58 PM CDT 100 mg Given 04/25/2014 3:48 PM CDT 100 mg heparin infusion in 0.45% NS IV [id number]/250ml 1,000 Units/hr (10 mL/hr), Intravenous, Continuous, Starting on Fri04/25/14 at 1130, Until Fri04/26/14 at 1538, Send MAR message 2 hours before as it is compounded prior to dispense;To start 6 hours after sheath pull, which is to be done after ACT < 180 and to stop tomorrow at 5am New Bag 04/25/2014 10:25 PM CDT 1,000 Units/hr 10 mL/hr ibuprofen (MOTRIN) tab 800 mg 800 mg, Oral, Once, On Fri04/26/14 at 1145, For 1 dose Given 04/26/2014 11:45 AM CDT 800 mg documented in this encounter Active and Recently Administered Medications Times are shown in CDT. Scheduled Medication Order 04/24/2014 04/25/2014 04/26/2014 apixaban (ELIQUIS) tab TABS 5 mg 5 mg, Oral, 2 times daily, First dose on Fri04/26/14 at 0900 1013 (Given - Provid er: Angella Hollingsworth RN) aspirin EC tab 81 mg (CANCELED) 81 mg, Oral, Daily, First dose on Fri04/25/14 at 1130, Do not crush 1548 (Given - Provider: Angella Hollingsworth RN) diltiazem (CARDIZEM CD) 24 hr cap 120 mg (CANCELED) 120 mg, Oral, Daily, First dose on Fri04/25/14 at 1130 1548 (Given - Provider: Angella Hollingsworth RN) Flecainide Acetate (TAMBOCOR) tab 100 mg (CANCELED) 100 mg, Oral, 2 times daily, First dose on Fri04/25/14 at 1130 1548 (Given - Provider: Angella Hollingsworth RN)2258 (Given - Provider: Bernie Griggs RN) 1013 (Given - Provider: Angella Hollingsworth RN) ibuprofen (MOTRIN) tab 800 mg (COMPLETED) 800 mg, Oral, Once, On Fri04/26/14 at 1145, For 1 dose 1145 (Given - Provid er: Angella Hollingsworth RN) Continuous Medication Order 04/24/2014 04/25/2014 04/26/2014 0.9% NaCl infusion (CANCELED) at 20 mL/hr, Intravenous, Continuous, Starting on Fri04/25/14 at 0745, Pre-procedure (Imaging) 0745 (New Bag - Provider: Sonia Venegas, CASSIE) heparin infusion in 0.45% NS IV 83113ydcro/250ml (CANCELED) 1,000 Units/hr (10 mL/hr), Intravenous, Continuous, Starting on Fri04/25/14 at 1130, Until Fri04/26/14 at 1538, Send MAR message 2 hours before as it is compounded prior to dispense;To start 6 hours after sheath pull, which is to be done after ACT < 180 and to stop tomorrow at 5am 2225 (New Bag - Provider: Bernie Griggs, CASSIE) 0500 (Stopped - Provider: Bernie Griggs, CASSIE) No Frequency Medication Order 04/24/2014 04/25/2014 04/26/2014 acetaminophen (TYLENOL) 325 MG tab (COMPLETED) Starting on Fri04/26/14 at 0749, For 1 dose, ANGELLA HOLLIGNSWORTH: cabinet override 0753 (Given - Provid er: Angella Hollingsworth, CASSIE) acetaminophen (TYLENOL) 325 MG tab (COMPLETED) Starting on Fri04/26/14 at 1259, For 1 dose, ANGELLA HOLLINGSWORTH: cabinet override 1301 (Given - Provid er: Angella Hollingsworth, RN) documented in this encounter Additional Health Concerns Assessment Noted Time A fall risk assessment has been complete d for the patient 04/26/2014 7:59 AM CDT documented as of this encounter Care Teams Claims Sorter Relationship Specialty Start Date End Date Jeison Orozco MD PCP - General 12/25/01 documented as of this encounter
--- OUTSIDE RECORDS SUMMARY | 2024-11-07 07:08 | XMS_ITS | Clinical Summary ---
Author Organization [facility] [facility] Address [address] [place] [address] Care Team Providers Care Student Development Advisor Name Role Phone Jeison Orozco MD Primary [...] months and older P FS 0.5 ml ([id number]) 08/09/2021,08/04/2020 HEP A/HEP B Combined 10/15/2011,03/29/2011,02/25 TDAP [...] on file Legal Sex Female 4:25 PM EQUIPMENT MAINTENANCE TECH Gender Identity Female 07/03/2021 5:51 PM CDT Sexual Orientation Not on file Last Filed Vital Signs Vital Sign Reading Time Taken Comments Blood Pressure 120/78 12/17/2021 10:12 AM EQUIPMENT MAINTENANCE TECH Pulse 72 12/17/2021 10:12 AM EQUIPMENT MAINTENANCE TECH Temperature 36.3 ??C (97.4 ??F) 12/17/2021 10:[address] Respiratory Rate 16 09/13/2018 1:11 PM EQUIPMENT MAINTENANCE TECH Oxygen Saturation 98% 12/17/2021 10:12 AM EQUIPMENT MAINTENANCE TECH Inhaled Oxygen Concentration - - Weight 68 kg (150 lb) 12/17/2021 10:12 AM EQUIPMENT MAINTENANCE TECH Height 167.6 cm (5' 6 ) 12/17/2021 10:12 AM EQUIPMENT MAINTENANCE TECH Body Mass Index 24.21 12/17/2021 10:12 AM EQUIPMENT MAINTENANCE TECH Plan of Treatment Health Maintenance Due Date Last Done Comments Annual Physical 1960 Flexible Sigmoidoscopy Discontinued 01/11/2013 Colonoscopy Discontinued 05/04/2015, 06/2015, 05/04/2015, Additional history exists Colorectal Cancer Screening Discontinued Mammogram Discontinued 01/15/2019 Cologuard (FIT-DNA) Discontinued Colonography Discontinued FIT/FOBT Colorectal Screening Discontinued Procedures Procedure Name Priority Date/Time Associated Diagnosis Comments YASMIN SCREEN MAMMOGRAM, DIGITAL (RSS=[id number]) Routine 01/15/2019 8:02 AM CDT Encounter for screening mammogram for malignant neoplasm of breast COLONOSCOPY Routine 05/04/2015 7:05 AM CDT Personal history of colonic polyps from Last 3 Months or Most Recently Relevant to Health Maintenance Results * YASMIN SCREEN MAMMOGRAM, DIGITAL (PEJ=[id number]) (01/15/2019 8:02 AM CDT) Anatomical Region Laterality Modality Breast Bilateral Mammography 01/19/2019 8:52 AM CDT Narrative 01/19/2019 8:53 AM CDT DATE OF SERVICE: 01.15.2019 BILATERAL SCREENING MAMMOGRAM WITH CAD WITH TOMOSYNTHESIS CLINICAL INDICATION: ??Screening mammogram on a 58 years old woman. COMPARISON: ??12/18/2016, 11/17/2015, 11/15/2014, 10/25/2013 TECHNIQUE: ?? Bilateral screening digital mammographic views with tomosynthesis. Images were checked with the [employer] CAD system. FINDINGS: ?The breasts demonstrate scattered [...] Espinosa M.D. Jeison Orozco MD RIS MAMMO Final Resul t from Last 3 Months or Most Recently Relevant to Health Maintenance Insurance [facility] [employer] [facility] P[facility] Care Teams Student Development Advisor Relationship Specialty Start Date End Date Jeison Orozco MD PCP - General 12/25/01
--- OUTSIDE RECORDS SUMMARY | 2024-11-07 07:08 | XMS_ITS | Encounter Summary ---
Author Organization [facility] Address [address] [place] [address] Care Team Providers Care Aluminum Polisher Name Role Phone Jeison Orozco MD Primary Care Provider Unav ailable Reason for Referral * Tests (Routine) - Closed Specialty Diagnoses / Procedures Referred By Delmi zee Referred To Contact CARDIOLOGY Diagnoses PAF (paroxysmal atrial fibrillation) (HCC) Procedures CARD ECHO DIONTE Xu Rosenberg MD Phone: tel: fax: Referral ID Status Reason Start Date Expiration Date Visits Re quested Visits Authorized [id number] Closed 04/08/2014 04/08/2015 1 1 Reason for Visit * [facility] - Closed Specialty Diagnoses / Procedures Referred By Delmi zee Referred To Contact Diagnoses PAF (paroxysmal atrial fibrillation) (HCC) Status post cryoablation of arrhythmia Procedures CATH [facility] [address] [place] [address] Phone: tel: Referral ID Status Reason Start Date Expiration Date Visits Re quested Visits Authorized [id number] Closed 1 1 Encounter Details Date Type Department Care Team (Latest Contact Info) Description 04/25/2014 7:06 AM CDT - 04/25/2014 11:59 PM CDT Hospital Encounter [facility] [address] [place] [address] Xu Rosenberg MD [address] [place], [place] [address], [place] [address] PAF (paroxysmal atrial fibrillation) ([facility]) Discharge Disposition: Home or Self [...] on file Legal Sex Female 4:25 PM 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 Use twice weekly 09/13/2018 aspirin [...] 02/25/2011 05/05/2018 documented as of this encounter Plan of Treatment Not on file documented as of this encounter Procedures Procedure Name Priority Date/Time Associated Diagnosis Comments CARD ECHO DIONTE ([id number]) Routine 04/25/2014 12:38 PM CDT PAF (paroxysmal atrial fibrillation) (HCC) documented in this encounter Results * CARD ECHO DIONTE (04/25/2014 12:38 PM CDT) Narrative [facility] - 04/25/2014 11:21 AM CDT Xu Rosenberg MD ? 04/25/2014 11:21 AM Transesophageal Echocardiogram History: Tonya Costello is a [...] IAS Xu Rosenberg MD Clinical Cardiac Electrophysiology [facility] Xu Rosenberg MD CARDIOGRAPHICS Final Resul t [facility] documented in this encounter Visit Diagnoses Diagnosis PAF (paroxysmal atrial fibrillation) (HCC) Atrial fibrillation documented in this encounter Additional Health Concerns Assessment Noted Time A fall risk assessment has been complete d for the patient 04/25/2014 9:00 PM CDT documented as of this encounter Care Teams Aluminum Polisher Relationship Specialty Start Date End Date Jeison Orozco MD PCP - General 12/25/01 documented as of this encounter
--- OUTSIDE RECORDS SUMMARY | 2024-11-07 07:08 | XMS_ITS | Encounter Summary ---
Author Organization [facility] Address [address] [place] [address] Care Team Providers Care Endband Sizer Name Role Phone Jeison Orozco MD Primary Care Provider Unav ailable Reason for Referral * Procedure (Routine) - Closed Specialty Diagnoses / Procedures Referred By Jacquelynac t Referred To Contact CARDIOLOGY Diagnoses PAF (paroxysmal atrial fibrillation) (HCC) Procedures CATH TRANSESOPHAGEAL ECHOCARDIOGRAM (DIONTE) Xu Rosenberg MD Phone: tel: fax: Referral ID Status Reason Start Date Expiration Date Visits Re quested Visits Authorized [id number] Closed 04/08/2014 04/08/2015 1 1 Reason for Visit * [facility] - Closed Specialty Diagnoses / Procedures Referred By Delmi t Referred To Contact Diagnoses PAF (paroxysmal atrial fibrillation) (HCC) Status post cryoablation of arrhythmia Procedures CATH [facility] [address] [place] [address] Phone: tel: Referral ID Status Reason Start Date Expiration Date Visits Re quested Visits Authorized [id number] Closed 1 1 Encounter Details Date Type Department Care Team (Latest Contact Info) Description 04/25/2014 6:00 AM CDT - 04/25/2014 6:59 AM CDT Hospital Encounter [facility] [address] [place] [address] Xu Rosenberg MD [address] [place] [address] [address] [place] [address] PAF (paroxysmal atrial fibrillation) ([facility]) Discharge Disposition: Home or Self [...] on file Legal Sex Female 4:25 PM DRAMA DIRECTOR Gender Identity Female 07/03/2021 5:51 PM CDT Sexual Orientation Not on file documented as of this encounter Medications at Time of Discharge apixaban (ELIQUIS) 5 MG Oral Tab Take 1 tablet by mouth 2 (two) times daily. 60 tablet 0 04/26/2014 05/26/2014 BIOTIN OR Take 3 tablets by mouth daily. 05/31/2015 Flecainide Acetate (TAMBOCOR) 100 MG Oral Tab Take 1 tablet by mouth 2 (two) times daily. 60 tablet 6 03/16/2014 05/03/2014 Diltiazem HCl ER Coated Beads (CARDIZEM CD) 120 MG Oral Capsule SR 24 Hr Take 1 capsule by mouth daily. 90 capsule 3 12/23/2013 12/01/2014 Estradiol (VAGIFEM) 10 MCG Vaginal TabIndications:AF (atrial fibrillation) ([facility]) Place vaginally. Use twice weekly [...] Procedure Name Priority Date/Time Associated Diagnosis Comments CATH TRANSESOPHAGEAL ECHOCARDIOGRAM (DIONTE) Routine 04/25/2014 9:23 AM CDT PAF (paroxysmal atrial fibrillation) (HCC) documented in this encounter Results * CATH TRANSESOPHAGEAL ECHOCARDIOGRAM (DIONTE) (04/25/2014 9:23 AM CDT) Narrative [facility] - 07/02/2023 3:06 PM CDT This result note associated with the CATH TRANSESOPHAGEAL ECHOCARDIOGRAM (DIONTE) from 04/25/14 is being administratively shared for patient and CareEverywhere visibility. If you would like the results from this study, please contact our HIM department at one of the following locations depending on where your procedure was performed. [facility]: [phone] [facility]: [phone] us Xu Rosenberg MD RIS CATH Final Resul t [facility] documented in this encounter Visit Diagnoses Diagnosis PAF (paroxysmal atrial fibrillation) (HCC) Atrial fibrillation documented in this encounter Additional Health Concerns Assessment Noted Time A fall risk assessment has been complete d for the patient 04/25/2014 9:00 PM CDT documented as of this encounter Care Teams Endband Sizer Relationship Specialty Start Date End Date Jeison Orozco MD PCP - General 12/25/01 documented as of this encounter
--- OUTSIDE RECORDS SUMMARY | 2024-11-07 07:08 | XMS_ITS | Encounter Summary ---
Author Organization [id number] Address [address] [place] [address] Care Team Providers Care Accounts Executive Name Role Phone Jeison Orozco MD Primary Care Provider Unav ailable Encounter Details Date Type Department Care Team (Late st Contact Info) Description 11/28/2015 12:20 AM IMPROVEMENT SPECIALIST Nurse Only [facility] [address] [place] [id number] Tyree Rayo MD [address] [place] [address] [place] [address] Social History Tobacco Use Types Packs/Day Years Used Date Smoking Tobacco: Former Cigarettes Smokeless Tobacco: Never Comments:quit 26 yrs ago Alcohol Use Standard Drinks/Week Comments Yes 0 (1 standard drink = 0.6 oz pur e alcohol) socially, 7 drinks/week Comments No Sex and Gender Information Value Date Recorded Sex Assigned at Not on file Legal Sex Female 4:25 PM IMPROVEMENT SPECIALIST Gender Identity Female 07/03/2021 5:51 PM CDT Sexual Orientation Not on file documented as of this encounter Functional Status * Hearing Problems? Answer Date of Assessment Author No 04/26/2014 12:18 PM CDT Yola Hollingsworth RN * Vision Problems? Answer Date of Assessment Author No 04/26/2014 12:18 PM CDT Yola Hollingsworth RN * Difficulty walking? Answer Date of Assessment Author No 04/26/2014 12:18 PM CDT Yola Hollingsworth RN * Difficulty dressing or bathing? Answer Date of Assessment Author No 04/26/2014 12:18 PM CDT Yola Hollingsworth RN * Problems with daily activities? Answer Date of Assessment Author No 04/26/2014 12:18 PM CDT Yola Hollingsworth RN documented as of this encounter Mental Status * Memory Problems? Answer Entry Date Author No 04/26/2014 12:18 PM CDT Yola Hollingsworth RN documented in this encounter Plan of Treatment Scheduled Orders Name Type Priority Associated Diagnoses Orde r Schedule Pathology Tissue P Pathology and Cytology Routine Neoplasm Expected: 11/28/2015, Expires: 11/28/2016 documented as of this encounter Visit Diagnoses Diagnosis Neoplasm- Primary Neoplasm of unspecified nature, site unspecified documented in this encounter Additional Health Concerns Assessment Noted Time A fall risk assessment has been complete d for the patient 04/26/2014 7:59 AM CDT documented as of this encounter Care Teams Accounts Executive Relationship Specialty Start Date End Date Jeison Orozco MD PCP - General 12/25/01 documented as of this encounter
== END 2024-10-31 17:55 | disposition home or self-care (01) ==
PROVIDERS: Emergency Provider Family Medicine
DX: K52.9 Noninfective gastroenteritis and colitis, unspecified (principal)
CPT/HCPCS: 36415; 80053; 81001; 83605; 83690; 85025; 85610; 86140; 87045; 87427; 87449; 87493; 96361; 96372; 96374; 99284; J0500; J7030